=== PATIENT | male | born 1945 | race Caucasian/White ===

== ENCOUNTER → 2017-12-10 13:20 | Outpatient (CLI) | payer MEDICARE, OTHER, SELFPAY ==
[2017-12-10 13:58] LABS: Basophils % 0.6 % (0.1-2.0); Eosinophils # 0.6 K/mm3 (0.0-0.4); Eosinophils % 9.4 % (0.1-12.0); Hematocrit 33.5 % (42.0-52.0); Hemoglobin 10.6 g/dL (14.1-18.0); Lymphocytes # 2.4 K/mm3 (0.7-4.5); Lymphocytes % 37.8 K/mm3 (10-50); Mean Corpuscular HGB Conc 31.6 g/dL (31.8-35.4); Mean Corpuscular Volume 91.6 fl (80-94); Mean Platelet Volume 8.4 fl (7.4-10.4); Monocytes # 0.3 K/mm3 (0.1-1.0); Neutrophils % 48.1 % (37.0-80.0); Platelet Count 206 K/mm3 (142-424); Red Blood Count 3.66 M/mm3 (4.60-6.20); Red Cell Distribution Width 15.7 % (11.5-17.5); White Blood Count 6.3 K/mm3 (4.8-10.8)
[2017-12-10 14:01] LABS: Hemoglobin A1C 9.4 % (0.0-7.0)
[2017-12-10 19:37] LABS: Alanine Aminotransferase 11 U/L (12-78); Albumin Level 3.5 gm/dL (3.4-5.0); Albumin/Globulin Ratio 0.8 (1.1-1.8); Alkaline Phosphatase 84 U/L (46-116); Anion Gap 15.3 mEq/L (5-15); Aspartate Amino Transferase 17 U/L (15-37); Bilirubin,Total 0.4 mg/dL (0.2-1.0); Blood Urea Nitrogen 25 mg/dL (7-18); Calcium 8.8 mg/dL (8.5-10.1); Carbon Dioxide 24 mmol/L (21.0-32.0); Chloride 99 mmol/L (98-107); Chol/HDL Ratio 2.6 (1-3.5); Cholesterol 107 mg/dL (140-200); Creatinine,Serum 1.47 mg/dL (0.70-1.30); Estimated Glomerular Filt Rate 47 ml/min (>60); GFR (African American) 57 ML/MIN (>60); Globulin 4.4 gm/dl (1.3-3.2); Glucose 223 mg/dL (74-106); HDL Cholesterol 41 mg/dL (27-67); LDL Cholesterol 42 mg/dL (0-130); Potassium 4.3 mmoL/L (3.5-5.1); Sodium 134 mmol/L (136-145); T4 (Thyroxine) 6.4 ug/dl (4.7-13.3); Total Protein,Serum 7.9 gm/dL (6.4-8.2); Triglycerides 122 mg/dL (30-200); VLDL Cholesterol 24 mg/dL (0-40)
== END ==
PROVIDERS: PCP Nurse Practitioner Family; Visit Provider Nurse Practitioner Family
DX: E11.65 Type 2 diabetes mellitus with hyperglycemia (principal); E11.8 Type 2 diabetes mellitus with unspecified complications; G62.9 Polyneuropathy, unspecified
CPT/HCPCS: 80053; 80061; 82652; 83036; 84436; 84443; 85025

== ENCOUNTER → 2017-12-31 13:40 | Outpatient (CLI) | payer MEDICARE, OTHER, SELFPAY ==
[2017-12-31 14:47] LABS: Amphetamine/Metha Screen,Urine Negative ng/mL (<1000); Barbiturates Screen,Urine Negative ng/mL (<200); Benzodiazepines Screen,Urine Negative ng/mL (<200); Cannabinoid Screen,Urine Negative ng/mL (<50); Cocaine Screen,Urine Negative ng/mL (<300); Methadone Screen,Urine Negative ng/mL (<300); Opiate Screen,Urine Positive ng/mL (<300); Phencyclidine Screen,Urine Negative ng/mL (<25)
[2018-01-05 08:15] LABS: Codeine Positive (.); Hydrocodone Negative (Cutoff=100); Hydromorphone Negative (Cutoff=100); Morphine Negative (Cutoff=100)
[2018-01-07 09:32] LABS: Codeine Confirm 317 ng/mL (Cutoff=100); Opiates Positive (.)
== END ==
PROVIDERS: Visit Provider Nurse Practitioner Family
DX: Z79.899 Other long term (current) drug therapy (principal)
CPT/HCPCS: 80305; 80361; G0480

== ENCOUNTER → 2018-01-08 09:01 | Outpatient (CLI) | payer MEDICARE, OTHER, SELFPAY | PROVIDERS: PCP Nurse Practitioner Family; Visit Provider Nurse Practitioner Family | DX: E11.65 Type 2 diabetes mellitus with hyperglycemia (principal) | CPT/HCPCS: 97802 ==

== ENCOUNTER → 2018-01-25 14:09 | Outpatient (CLI) | payer MEDICARE, OTHER, SELFPAY ==
[2018-01-25 17:13] LABS: Amphetamine/Metha Screen,Urine Negative ng/mL (<1000); Barbiturates Screen,Urine Negative ng/mL (<200); Benzodiazepines Screen,Urine Negative ng/mL (<200); Cannabinoid Screen,Urine Negative ng/mL (<50); Cocaine Screen,Urine Negative ng/mL (<300); Methadone Screen,Urine Negative ng/mL (<300); Opiate Screen,Urine Positive ng/mL (<300); Phencyclidine Screen,Urine Negative ng/mL (<25)
== END ==
PROVIDERS: Visit Provider Nurse Practitioner Family
DX: Z79.899 Other long term (current) drug therapy (principal)
CPT/HCPCS: 80305

== ENCOUNTER → 2018-02-22 14:18 | Outpatient (CLI) | payer MEDICARE, OTHER, SELFPAY ==
[2018-02-22 14:50] LABS: Amphetamine/Metha Screen,Urine Negative ng/mL (<1000); Barbiturates Screen,Urine Negative ng/mL (<200); Benzodiazepines Screen,Urine Negative ng/mL (<200); Cannabinoid Screen,Urine Negative ng/mL (<50); Cocaine Screen,Urine Negative ng/mL (<300); Methadone Screen,Urine Negative ng/mL (<300); Opiate Screen,Urine Negative ng/mL (<300); Phencyclidine Screen,Urine Negative ng/mL (<25)
== END ==
PROVIDERS: Visit Provider Nurse Practitioner Family
DX: Z79.899 Other long term (current) drug therapy (principal)
CPT/HCPCS: 80305

== ENCOUNTER → 2018-04-19 15:02 | Outpatient (CLI) | payer MEDICARE, OTHER, SELFPAY ==
--- NOTE | 2018-04-19 15:04 | US_ITS ---
US Arterial Ankle Brachial Ind History: ITS.REASON: skin changes, diabetes, hypertension, neuropathy ORDERING PHYSICIAN: Oxana Camarena DPM PATIENT AGE: 72 years TECHNIQUE: Segmental pressures obtained of both right and left leg. These are compared to brachial blood pressure to yield index at each level sampled including summary DREW. The data sheets from the procedure are available in PACS FINDINGS Rest study only performed today No prior studies available for comparison. Blood pressures reported are in millimeters mercury. RIGHT LEG DREW = 1.13. RIGHT LEG TBI=0.91 Brachial BP: 141 Thigh BP: 163 Calf BP: 177 Ankle PT: 162 Ankle DP : 124 Digit =131 LEFT LEG DREW = 0.89 LEFT LEG TBI= 0.60 Brachial BPD: 144 Thigh BP: 174 Calf BP: 160 Ankle PT:128 Ankle DP: 103 Digit = 87 Pulses and waveforms: Normal IMPRESSION: The ABIs/TBI as reported above are within normal limits. Waveforms and pulses are also unremarkable.
== END ==
PROVIDERS: PCP Nurse Practitioner Family; Visit Provider Podiatrist
DX: R09.89 Other specified symptoms and signs involving the circulatory and respiratory systems (principal)
CPT/HCPCS: 93922

== ENCOUNTER → 2018-04-23 13:28 | Outpatient (CLI) | payer MEDICARE, OTHER, SELFPAY ==
[2018-04-23 14:07] LABS: Basophils # 0.1 K/mm3 (0-0.2); Basophils % 0.9 % (0.1-2.0); Eosinophils # 0.4 K/mm3 (0.0-0.4); Eosinophils % 6.3 % (0.1-12.0); Hematocrit 36.8 % (42.0-52.0); Hemoglobin 11.7 g/dL (14.1-18.0); Lymphocytes # 2.2 K/mm3 (0.7-4.5); Lymphocytes % 34.7 % (10-50); Mean Corpuscular HGB Conc 31.7 g/dL (31.8-35.4); Mean Corpuscular Hemoglobin 29.6 pg (27.0-31.2); Mean Corpuscular Volume 93.4 fl (80-94); Mean Platelet Volume 7.9 fl (7.4-10.4); Monocytes # 0.4 K/mm3 (0.1-1.0); Monocytes % 5.6 % (1.7-9.3); Neutrophils # 3.4 K/mm3 (1.8-7.8); Neutrophils % 52.4 % (37.0-80.0); Platelet Count 205 K/mm3 (142-424); Red Blood Count 3.94 M/mm3 (4.60-6.20); Red Cell Distribution Width 16.2 % (11.5-17.5); White Blood Count 6.4 K/mm3 (4.8-10.8)
[2018-04-23 14:12] LABS: Alanine Aminotransferase 14 U/L (12-78); Albumin Level 3.8 gm/dL (3.4-5.0); Albumin/Globulin Ratio 0.9 (1.1-1.8); Alkaline Phosphatase 92 U/L (46-116); Aspartate Amino Transferase 16 U/L (15-37); Bilirubin,Total 0.5 mg/dL (0.2-1.0); Blood Urea Nitrogen 16 mg/dL (7-18); Calcium 8.9 mg/dL (8.5-10.1); Carbon Dioxide 24 mmol/L (21.0-32.0); Chloride 105 mmol/L (98-107); Chol/HDL Ratio 2.6 (1-3.5); Cholesterol 148 mg/dL (140-200); Estimated Glomerular Filt Rate 50 ml/min (>60); GFR (African American) 60 ML/MIN (>60); Globulin 4.2 gm/dl (1.3-3.2); Glucose 204 mg/dL (74-106); HDL Cholesterol 56 mg/dL (27-67); LDL Cholesterol 69 mg/dL (0-130); Sodium 140 mmol/L (136-145); T4 (Thyroxine) 6.3 ug/dl (4.7-13.3); Thyroid Stimulating Hormone 7.18 uIU/ml (0.358-3.740); Triglycerides 116 mg/dL (30-200); VLDL Cholesterol 23 mg/dL (0-40)
[2018-04-23 15:15] LABS: Hemoglobin A1C 8.3 % (0.0-7.0)
[2018-04-24 07:55] LABS: Vitamin D 25 Hydroxy 40.3 ng/mL (30.0-100.0)
[2018-04-24 11:19] LABS: Creatinine, Urine 84.4 mg/dL (Not Estab.); Microalbumin, Urine 73.7 ug/mL (Not Estab.)
[2018-04-26 11:43] LABS: Ferritin 38 ng/mL (8-388)
[2018-04-27 08:29] LABS: Iron 88 ug/dL (38-169); UIBC 257 ug/dL (111-343)
[2018-04-29 08:17] LABS: Iron Saturation 26 % (15-55)
== END ==
PROVIDERS: Visit Provider Physician Assistant
DX: F32.9 Major depressive disorder, single episode, unspecified; E11.8 Type 2 diabetes mellitus with unspecified complications; Z79.4 Long term (current) use of insulin; D64.9 Anemia, unspecified
CPT/HCPCS: 80053; 80061; 82043; 82570; 82652; 82728; 83036; 83540; 83550; 84436; 84443; 85025

== ENCOUNTER → 2019-01-24 09:21 | Outpatient (CLI) | payer MEDICARE, OTHER, SELFPAY ==
--- NOTE | 2019-01-24 09:21 | US_ITS ---
PROCEDURE: US BREAST LT COMPLETE CLINICAL INDICATION: pain Pain behind the left nipple COMPARISON: No exams were available for comparison FINDINGS: No cystic or solid lesions are evident. Unremarkable echogenicity of the pass tissue IMPRESSION: Negative left breast ultrasound Dictated by: Vick Estes MD 01/29/2019 10:37 Electronically signed by Vick Estes MD in [place] 01/29/2019 10:37
== END ==
PROVIDERS: PCP Nurse Practitioner Family; Visit Provider Nurse Practitioner Family
DX: N64.4 Mastodynia (principal)
CPT/HCPCS: 76641

== ENCOUNTER → 2019-10-16 14:49 | Outpatient (CLI) | payer MEDICARE, OTHER, SELFPAY ==
[2019-10-16 18:01] LABS: Basophils % 0.8 % (0.1-2.0); Eosinophils # 0.4 K/mm3 (0.0-0.4); Eosinophils % 6.2 % (0.1-12.0); Hematocrit 36.8 % (42.0-52.0); Hemoglobin 12.3 g/dL (14.1-18.0); Lymphocytes # 1.7 K/mm3 (0.7-4.5); Lymphocytes % 31.2 % (10-50); Mean Corpuscular HGB Conc 33.3 g/dL (31.8-35.4); Mean Corpuscular Hemoglobin 32.8 pg (27.0-31.2); Mean Corpuscular Volume 98.3 fl (80-94); Mean Platelet Volume 9.1 fl (7.4-10.4); Monocytes # 0.4 K/mm3 (0.1-1.0); Neutrophils # 3.1 K/mm3 (1.8-7.8); Neutrophils % 54.8 % (37.0-80.0); Platelet Count 172 K/mm3 (142-424); Red Blood Count 3.74 M/mm3 (4.60-6.20); White Blood Count 5.6 K/mm3 (4.8-10.8)
[2019-10-16 18:09] LABS: Alanine Aminotransferase 10 U/L (12-78); Albumin Level 4.3 g/dl (3.5-5.0); Albumin/Globulin Ratio 1.3 (1.1-1.8); Alkaline Phosphatase 88 U/L (38-126); Anion Gap 10.1 mEq/L (5-15); Aspartate Amino Transferase 31 U/L (17-59); Bilirubin,Total 0.5 mg/dl (0.2-1.3); Blood Urea Nitrogen 13 mg/dl (9-20); Calcium 9.7 mg/dl (8.4-10.2); Carbon Dioxide 31 mmol/L (22.0-30.0); Chloride 104 mmol/L (98-107); Chol/HDL Ratio 2.5 (1-3.5); Cholesterol 146 mg/dl (140-200); Estimated Glomerular Filt Rate 73 ml/min (>60); GFR (African American) 89 ML/MIN (>60); Globulin 3.3 g/dL (1.3-3.2); Glucose 169 mg/dl (74-100); HDL Cholesterol 59 mg/dl (40-60); Potassium 4.1 mmoL/L (3.5-5.1); Sodium 141 mmol/L (136-145); Total Protein,Serum 7.6 g/dl (6.3-8.2); Triglycerides 128 mg/dl (30-150); VLDL Cholesterol 26 mg/dL (0-40)
[2019-10-16 18:16] LABS: Hemoglobin A1C 7.1 % (4.0-6.0)
[2019-10-16 18:21] LABS: Direct LDL Cholesterol 65.14 mg/dL (100-129)
[2019-10-16 18:27] LABS: T4 (Thyroxine) 7.4 ug/dl (5.53-11.0)
[2019-10-16 18:40] LABS: Prostate Specific Ag Screen 0.1 ng/ml (0.0-4.0)
[2019-10-16 20:27] LABS: Microalbumin/Creatinine Ratio 63.6
[2019-10-16 21:02] LABS: Creatinine,Urine Random 75 mg/dL (Not Estab.)
== END ==
PROVIDERS: Visit Provider Nurse Practitioner Family
DX: E03.9 Hypothyroidism, unspecified (principal); E11.65 Type 2 diabetes mellitus with hyperglycemia; R53.83 Other fatigue; L60.3 Nail dystrophy; B35.1 Tinea unguium; E11.8 Type 2 diabetes mellitus with unspecified complications; Z12.5 Encounter for screening for malignant neoplasm of prostate
CPT/HCPCS: 80053; 80061; 82043; 82570; 83036; 84436; 84443; 85025; G0103

== ENCOUNTER → 2019-10-20 11:01 | Outpatient (CLI) | payer MEDICARE, OTHER, SELFPAY ==
--- NOTE | 2019-10-20 11:31 | XR_ITS ---
PROCEDURE: XR FOOT WT BEARING LT 3V CLINICAL INDICATION: DM ulcer of left heel Pain redness and swelling COMPARISON: CR [id number] XR foot RT 2V from 11/07/2017 FINDINGS: Bandage artifact overlies the calcaneus posteriorly. There is a small enthesophyte and a small calcaneal spur. Along the plantar surface of the calcaneus just proximal to the spur there is some faint haziness of the cortex. One cannot exclude the possibility of early osteomyelitis. MRI may provide further evaluation. There are mild degenerative changes at the 1st metatarsophalangeal joint. IMPRESSION: There is faint haziness of the cortex proximal to a calcaneal spur. This is nonspecific but could be seen with early osteomyelitis. MRI may provide further evaluation. Dictated by: Vick Estes MD 10/20/2019 12:42 Vick Estes MD in [place] 10/20/2019 12:42
[2019-10-20 11:57] LABS: Basophils # 0.1 K/mm3 (0-0.2); Basophils % 0.9 % (0.1-2.0); Eosinophils # 0.4 K/mm3 (0.0-0.4); Eosinophils % 5.3 % (0.1-12.0); Hemoglobin 11.6 g/dL (14.1-18.0); Lymphocytes # 1.9 K/mm3 (0.7-4.5); Lymphocytes % 28.3 % (10-50); Mean Corpuscular HGB Conc 32.4 g/dL (31.8-35.4); Mean Corpuscular Hemoglobin 32.1 pg (27.0-31.2); Mean Corpuscular Volume 99.3 fl (80-94); Mean Platelet Volume 7.9 fl (7.4-10.4); Monocytes # 0.4 K/mm3 (0.1-1.0); Monocytes % 5.7 % (1.7-9.3); Neutrophils % 59.8 % (37.0-80.0); Platelet Count 178 K/mm3 (142-424); Red Blood Count 3.62 M/mm3 (4.60-6.20); Red Cell Distribution Width 13.8 % (11.5-17.5); White Blood Count 6.7 K/mm3 (4.8-10.8)
[2019-10-20 12:22] LABS: Erythrocyte Sedimentation Rate 23 mm/hr (0-20)
[2019-10-20 12:57] LABS: Chloride 101 mmol/L (98-107); Potassium 4.6 mmoL/L (3.5-5.1); Sodium 142 mmol/L (136-145)
[2019-10-20 13:00] LABS: Alanine Aminotransferase 5 U/L (12-78); Albumin Level 4.2 g/dl (3.5-5.0); Albumin/Globulin Ratio 1.4 (1.1-1.8); Alkaline Phosphatase 75 U/L (38-126); Anion Gap 14.6 mEq/L (5-15); Aspartate Amino Transferase 26 U/L (17-59); Bilirubin,Total 0.5 mg/dl (0.2-1.3); Blood Urea Nitrogen 17 mg/dl (9-20); Carbon Dioxide 31 mmol/L (22.0-30.0); Estimated Glomerular Filt Rate 66 ml/min (>60); GFR (African American) 79 ML/MIN (>60); Total Protein,Serum 7.2 g/dl (6.3-8.2)
[2019-10-20 13:01] LABS: Calcium 9.4 mg/dl (8.4-10.2); Glucose 237 mg/dl (74-100)
[2019-10-20 13:06] LABS: C-Reactive Protein 0.8 mg/L (0-4)
== END ==
PROVIDERS: PCP Emergency Medicine; Visit Provider Nurse Practitioner
DX: E11.621 Type 2 diabetes mellitus with foot ulcer (principal); L97.429 Non-pressure chronic ulcer of left heel and midfoot with unspecified severity
CPT/HCPCS: 36415; 73630; 80053; 85025; 85651; 86140; 87070; 87077; 87186; 87205

== ENCOUNTER → 2019-11-06 09:32 | Outpatient (CLI) | payer MEDICARE, OTHER, SELFPAY ==
--- NOTE | 2019-11-06 09:32 | MR_ITS ---
PROCEDURE: MR FOOT LT WO/W CON CLINICAL INDICATION: Eval. extent of osteomyelitis. Open sore along posterior aspect of the heel and medial aspect of the foot, evaluate for osteomyelitis. Radiograph. Possible osteomyelitis at the calcaneus COMPARISON: CR XR FOOT WT BEARING LT 3V from 10/20/2019 TECHNIQUE: Routine multiplanar multi echo sequences are performed without gadolinium enhancement. FINDINGS: There is diffuse edema of the deep tissues along the plantar surface of the foot deep to the plantar fascia involving the transit muscles of the foot with subcutaneous edema along the dorsal and medial aspect of the foot and at the ankle posteriorly. No abnormal bone marrow signal intensity is evident that would indicate osteomyelitis. Specifically, no abnormal bone marrow signal of the calcaneus. The plantar fascia appears intact. No ligamentous or tendinous abnormalities are evident. No focal abscess apparent IMPRESSION: 1. Diffuse edema of the deep soft tissues of the foot/intrinsic muscles of the foot. Deep cellulitis/myositis is considered 2. No evidence of osteomyelitis. Dictated by: Vick Estes MD 11/10/2019 09:41 Vick Estes MD in [place] 11/10/2019 09:41
--- NOTE | 2019-11-06 11:11 | US_ITS ---
APPROVED REPORT Exam Type: Lower Extremity Segmental Pressures Proprietary Trader: Odalis Tang RDCS Indications Non-healing Ulcer: Left Rest Pain: History of Smoking Risk Factors Hypertension Diabetes Pressures/Indices Right Indices Left Indices Brachial 135.00 mmHg Brachial 129.00 mmHg Low Thigh 172.00 mmHg 1.27 Low Thigh 159.00 mmHg 1.18 Calf 161.00 mmHg 1.19 Calf 157.00 mmHg 1.16 Ankle(PT) 172.00 mmHg 1.27 Ankle(PT) 143.00 mmHg 1.06 Ankle(DP) 157.00 mmHg 1.16 Ankle(DP) 116.00 mmHg 0.86 Digit 171.00 mmHg 1.27 Digit 80.00 mmHg 0.59 Findings NORMAL WAVEFORMS AND PULSES R DREW 1.3 L DREW 1.1 R TBI 1.3 L TBI .6 Conclusion NORMAL WAVEFORMS AND PULSES R DREW 1.3 L DREW 1.1 R TBI 1.3 L TBI .6 Electronically signed by : Vick Estes MD 11/10/2019 17:24:48
== END ==
PROVIDERS: PCP Emergency Medicine; Visit Provider Podiatrist
DX: E08.621 Diabetes mellitus due to underlying condition with foot ulcer (principal); L97.401 Non-pressure chronic ulcer of unspecified heel and midfoot limited to breakdown of skin; M86.171 Other acute osteomyelitis, right ankle and foot; R09.89 Other specified symptoms and signs involving the circulatory and respiratory systems
CPT/HCPCS: 73720; 93923; A9576

== ENCOUNTER → 2019-11-24 11:25 | Outpatient (CLI) | payer MEDICARE, OTHER, SELFPAY ==
[2019-11-24 12:29] LABS: Hemoglobin A1C 7.2 % (4.0-6.0)
[2019-11-24 12:53] LABS: C-Reactive Protein 1.1 mg/L (0-4)
[2019-11-24 13:03] LABS: Basophils # 0.1 K/mm3 (0-0.2); Basophils % 0.6 % (0.1-2.0); Eosinophils # 1.8 K/mm3 (0.0-0.4); Eosinophils % 17.1 % (0.1-12.0); Hematocrit 36.9 % (42.0-52.0); Hemoglobin 12.1 g/dL (14.1-18.0); Lymphocytes # 2.2 K/mm3 (0.7-4.5); Mean Corpuscular HGB Conc 32.8 g/dL (31.8-35.4); Mean Corpuscular Hemoglobin 31.4 pg (27.0-31.2); Mean Corpuscular Volume 95.6 fl (80-94); Mean Platelet Volume 8.2 fl (7.4-10.4); Monocytes # 0.5 K/mm3 (0.1-1.0); Monocytes % 4.9 % (1.7-9.3); Neutrophils # 5.8 K/mm3 (1.8-7.8); Neutrophils % 56.3 % (37.0-80.0); Platelet Count 164 K/mm3 (142-424); Red Blood Count 3.86 M/mm3 (4.60-6.20); Red Cell Distribution Width 14.1 % (11.5-17.5); White Blood Count 10.3 K/mm3 (4.8-10.8)
[2019-11-24 13:46] LABS: Erythrocyte Sedimentation Rate 29 mm/hr (0-20)
== END ==
PROVIDERS: Visit Provider Podiatrist
DX: E08.621 Diabetes mellitus due to underlying condition with foot ulcer (principal); L97.401 Non-pressure chronic ulcer of unspecified heel and midfoot limited to breakdown of skin; Z79.4 Long term (current) use of insulin
CPT/HCPCS: 36415; 83036; 85025; 85651; 86140

== ENCOUNTER → 2020-04-09 14:56 | Outpatient (CLI) | payer MEDICARE, OTHER, SELFPAY ==
[2020-04-09 16:43] LABS: Basophils # 0.1 K/mm3 (0-0.2); Eosinophils # 0.5 K/mm3 (0.0-0.4); Eosinophils % 6.4 % (0.1-12.0); Hematocrit 36.2 % (42.0-52.0); Hemoglobin 12.1 g/dL (14.1-18.0); Lymphocytes # 2.3 K/mm3 (0.7-4.5); Mean Corpuscular HGB Conc 33.3 g/dL (31.8-35.4); Mean Corpuscular Hemoglobin 30.8 pg (27.0-31.2); Mean Corpuscular Volume 92.3 fl (80-94); Mean Platelet Volume 8.8 fl (7.4-10.4); Monocytes # 0.5 K/mm3 (0.1-1.0); Neutrophils # 4.6 K/mm3 (1.8-7.8); Neutrophils % 57.6 % (37.0-80.0); Platelet Count 196 K/mm3 (142-424); Red Blood Count 3.92 M/mm3 (4.60-6.20); Red Cell Distribution Width 14.8 % (11.5-17.5)
[2020-04-09 16:59] LABS: Alanine Aminotransferase 8 U/L (12-78); Albumin Level 4.3 g/dl (3.5-5.0); Albumin/Globulin Ratio 1.3 (1.1-1.8); Alkaline Phosphatase 77 U/L (38-126); Anion Gap 14.5 mEq/L (5-15); Aspartate Amino Transferase 28 U/L (17-59); Bilirubin,Total 0.5 mg/dl (0.2-1.3); Blood Urea Nitrogen 21 mg/dl (9-20); Calcium 9.5 mg/dl (8.4-10.2); Carbon Dioxide 26 mmol/L (22.0-30.0); Chloride 104 mmol/L (98-107); Chol/HDL Ratio 3.7 (1-3.5); Cholesterol 133 mg/dl (140-200); Estimated Glomerular Filt Rate 54 ml/min (>60); GFR (African American) 65 ML/MIN (>60); Globulin 3.3 g/dL (1.3-3.2); Glucose 223 mg/dl (74-100); HDL Cholesterol 36 mg/dl (40-60); Potassium 4.5 mmoL/L (3.5-5.1); Sodium 140 mmol/L (136-145); Total Protein,Serum 7.6 g/dl (6.3-8.2); Triglycerides 139 mg/dl (30-150); VLDL Cholesterol 28 mg/dL (0-40)
[2020-04-09 17:10] LABS: Direct LDL Cholesterol 68.99 mg/dL (100-129)
[2020-04-09 17:29] LABS: Thyroid Stimulating Hormone 3.09 uIU/mL (0.465-4.68)
[2020-04-09 17:40] LABS: Hemoglobin A1C 8.8 % (4.0-6.0)
[2020-04-09 17:50] LABS: Microalbumin/Creatinine Ratio 30.4
[2020-04-09 17:52] LABS: Creatinine,Urine Random 112 mg/dL (Not Estab.)
== END ==
PROVIDERS: Visit Provider Family Medicine
DX: E11.40 Type 2 diabetes mellitus with diabetic neuropathy, unspecified (principal); E11.65 Type 2 diabetes mellitus with hyperglycemia; Z79.4 Long term (current) use of insulin; R35.1 Nocturia
CPT/HCPCS: 80053; 80061; 82043; 82570; 83036; 84436; 84443; 85025

== ENCOUNTER → 2020-08-30 19:50 | Outpatient (CLI) | payer MEDICARE, SELFPAY ==
[2020-08-30 20:28] LABS: Hemoglobin A1C 6.9 % (4.0-6.0)
[2020-08-30 20:48] LABS: Alanine Aminotransferase 5 U/L (12-78); Albumin Level 4.4 g/dl (3.5-5.0); Albumin/Globulin Ratio 1.3 (1.1-1.8); Alkaline Phosphatase 65 U/L (38-126); Anion Gap 17.6 mEq/L (5-15); Aspartate Amino Transferase 22 U/L (17-59); Bilirubin,Total 0.5 mg/dl (0.2-1.3); Blood Urea Nitrogen 19 mg/dl (9-20); Calcium 9.1 mg/dl (8.4-10.2); Carbon Dioxide 25 mmol/L (22.0-30.0); Chloride 104 mmol/L (98-107); Chol/HDL Ratio 3.1 (1-3.5); Cholesterol 118 mg/dl (140-200); Estimated Glomerular Filt Rate 54 ml/min (>60); GFR (African American) 65 ML/MIN (>60); Globulin 3.3 g/dL (1.3-3.2); Glucose 56 mg/dl (74-100); HDL Cholesterol 38 mg/dl (40-60); Potassium 4.6 mmoL/L (3.5-5.1); Sodium 142 mmol/L (136-145); Total Protein,Serum 7.7 g/dl (6.3-8.2); Triglycerides 93 mg/dl (30-150); VLDL Cholesterol 19 mg/dL (0-40)
[2020-08-30 20:59] LABS: Direct LDL Cholesterol 60.06 mg/dL (100-129)
== END ==
PROVIDERS: Visit Provider Family Medicine
DX: E11.40 Type 2 diabetes mellitus with diabetic neuropathy, unspecified (principal); Z79.4 Long term (current) use of insulin
CPT/HCPCS: 80053; 80061; 83036

== ENCOUNTER 2020-11-19 13:48 | Emergency (ER) | payer MEDICARE, OTHER, SELFPAY ==
[2020-11-19] VITALS (20 sets, daily range): BP systolic 89–127; BP diastolic 43–68; PULSE 59–78; RESP 12–23; TEMP 37.2–38.4; O2SAT 92–99; BMI 22.9; BMI 23.6
--- NOTE | 2020-11-19 13:51 | ECG_ITS ---
APPROVED REPORT Exam: Resting ECG HR:74 bpm ECG Measurements Heart Rate 74 AXES NJ 190 P 44 QRSd 94 QRS -15 QT 354 T 25 QTc 392 Conclusion Normal sinus rhythm Normal ECG Electronically signed by : Suhail Salcedo MD 11/19/2020 16:34:49
--- NOTE | 2020-11-19 14:03 | XR_ITS ---
PROCEDURE: XR CHEST PORTABLE CLINICAL HISTORY: FEVER Degenerative changes of the right shoulder. Concave defect is present along the distal clavicle on the right and could be postsurgical in nature COMPARISON: CR [id number] XR chest portable from 11/07/[address] ABDOMEN PELVIS WO CON from 11/19/2020 FINDINGS: The cardiomediastinal silhouette and pulmonary vascularity are within normal limits. The faint infiltrates noted on the CT scan of the same day are below limits of resolution on the radiograph. Calcified granuloma is present in right lower lobe and a calcified granulomas present along the right minor fissure. Bowel interposition is noted on the right No acute bony abnormalities. IMPRESSION: No acute finding. Faint infiltrates noted on the lung base images of the abdomen CT are below limits of resolution on the radiograph. Dictated by: Vick Estes MD 11/19/2020 16:19 Vick Estes MD in [place] 11/19/2020 16:19
[2020-11-19 14:09] LABS: Basophils % 0.7 % (0.1-2.0); Eosinophils % 0.2 % (0.1-12.0); Hematocrit 32.5 % (42.0-52.0); Hemoglobin 10.5 g/dL (14.1-18.0); Lymphocytes # 1.1 K/mm3 (0.7-4.5); Lymphocytes % 17.5 % (10-50); Mean Corpuscular HGB Conc 32.2 g/dL (31.8-35.4); Mean Corpuscular Hemoglobin 31.7 pg (27.0-31.2); Mean Corpuscular Volume 98.5 fl (80-94); Monocytes # 0.5 K/mm3 (0.1-1.0); Monocytes % 7.5 % (1.7-9.3); Neutrophils # 4.4 K/mm3 (1.8-7.8); Platelet Count 131 K/mm3 (142-424); Red Cell Distribution Width 14.9 % (11.5-17.5)
[2020-11-19 14:15] LABS: Chloride 98 mmol/L (98-107); Sodium 131 mmol/L (136-145)
[2020-11-19 14:17] LABS: Blood Urea Nitrogen 61 mg/dl (9-20); Creatinine Clearance Estimated 14 mL/min (50-200); Estimated Glomerular Filt Rate 12 ml/min (>60); GFR (African American) 15 ML/MIN (>60)
[2020-11-19 14:18] LABS: Alanine Aminotransferase 8 U/L (12-78); Albumin Level 4.2 g/dl (3.5-5.0); Albumin/Globulin Ratio 1.1 (1.1-1.8); Alkaline Phosphatase 78 U/L (38-126); Anion Gap 21.3 mEq/L (5-15); Aspartate Amino Transferase 47 U/L (17-59); Bilirubin,Total 0.4 mg/dl (0.2-1.3); Calcium 8.3 mg/dl (8.4-10.2); Carbon Dioxide 18 mmol/L (22.0-30.0); Globulin 3.7 g/dL (1.3-3.2); Glucose 174 mg/dl (74-100); Potassium 6.3 mmoL/L (3.5-5.1); Total Protein,Serum 7.9 g/dl (6.3-8.2)
--- NOTE | 2020-11-19 14:18 | PC.NURSE ---
Becky from lab called a criticals of potassium of 6.3 and creatine of 4.7, which was read back and confirmed.
--- NOTE | 2020-11-19 14:31 | CT_ITS ---
PROCEDURE: CT ABDOMEN PELVIS WO CON CLINICAL INDICATION: renal failure COMPARISON: CR XR CHEST PORTABLE from 11/19/2020 TECHNIQUE: Axial images obtained with sagittal and coronal reformats. All CT scans at the facility use one or more dose reduction, viz: automated exposure control, ma/kV adjustment per patient size (including targeted exams where dose is matched to indication, i.e. head), or iterative reconstruction technique. FINDINGS: LOWER THORAX: A small area of infiltrate is present in the left lung base posteriorly and laterally and also in the right lung base medially. There is bilateral gynecomastia left greater than right. ABDOMEN & PELVIS: There is mild gallbladder wall thickening with suggestion of a small stone in the cystic duct area and small gallstones. No focal liver lesion is apparent. The spleen, adrenal glands, and pancreas have an unremarkable appearance. No renal or ureteral calculi. Small hypodensity is present along the posterior aspect of the left kidney at 12 mm and may be due to small cyst. There are fluid-filled loops of small and large bowel with scattered air-fluid levels. This could be related to enterocolitis/diarrhea disease there is mild prominence of the appendix measuring up to approximately 9 mm in diameter. There is however no stranding of the Penny appendiceal fat. There is hyperdensity in the tip of the appendix which could be related to an appendicoliths or ingested material. There is also some hyperdensity within the colon consistent with ingested products. There is a small umbilical hernia containing fat. No free air apparent. No evidence of diverticulitis. Urinary bladder is somewhat distended. No pelvic mass apparent. Sclerotic focus is present in the right super acetabular region and may be due to a bone island. Small sclerotic focus with surrounding lucency noted in the left ilium etiology indeterminate. Follow-up may confirm stability. IMPRESSION: 1. Small bibasilar areas of infiltrate 2. Thickened gallbladder wall with cholelithiasis 3. Fluid-filled loops of small and large bowel which are somewhat prominent with air-fluid levels which may be related to ileus/enteritis or diarrhea disease. 4. Mild dilatation of the appendix without stranding of the periappendiceal fat. Correlation with clinical parameters needed. Dictated by: Vick Estes MD 11/19/2020 15:05 Vick Estes MD in [place] 11/19/2020 15:05
[2020-11-19 14:43] LABS: Influenza A, PCR Not Detected (NotDetected); Influenza B, PCR Not Detected (NotDetected)
[2020-11-19 15:06] LABS: Coronavirus 19, PCR Detected (NotDetected)
--- NOTE | 2020-11-19 15:12 | HMH.EDGENADL ---
ED Disposition Clinical Impression: COVID, Acute hyperkalemia, Enteritis Acute renal failure Qualifiers: Acute renal failure type: unspecified Qualified Code(s): N17.9 - Acute kidney failure, unspecified Disposition: Xfer Critical Access Hosp Condition on Discharge: Fair Instructions: DI for COVID-19 (Suspected or Confirmed ) Referrals: Venkat Holder MD [Primary Care Provider] - - Critical Care Critical Care Time: No Attestation: On 11/19/20, the high probability of a clinically significant, sudden or life threatening deterioration of the following system(s) required my full and direct attention, intervention and personal management. The time I documented below is in addition to time spent performing reported procedures but includes the following listed in this critical care notation. Medical Decision Making - Medical Records Medical records reviewed: Yes: I reviewed the patient's medical records. - Simone Inquiry Pt receiving controlled substance: No Vital Signs: 11/19/20 13:48 11/19/20 14:30 11/19/20 15:30 Temperature 101.2 F H Temperature Source Oral Pulse Rate 72 78 Pulse Rate [Radial] 73 Respiratory Rate 20 18 23 Blood Pressure 103/54 L 94/43 L Blood Pressure [Right Arm] 107/54 L Blood Pressure Mean 65 58 Blood Pressure Mean [Right Arm] 71 Blood Pressure Position Sitting Blood Pressure Position [Right Arm] Sitting 02 Sat by Pulse Oximetry 96 96 97 Oxygen Delivery Method Room Air Room Air 11/19/20 16:00 11/19/20 16:30 11/19/20 16:45 Temperature Temperature Source Pulse Rate 69 68 68 Pulse Rate [Radial] Respiratory Rate 17 16 21 Blood Pressure 89/50 L 91/53 L 93/54 L Blood Pressure [Right Arm] Blood Pressure Mean 60 60 64 Blood Pressure Mean [Right Arm] Blood Pressure Position Sitting Blood Pressure Position [Right Arm] 02 Sat by Pulse Oximetry 94 L 92 L 95 Oxygen Delivery Method Room Air 11/19/20 17:00 11/19/20 17:30 11/19/20 18:00 Temperature 99 F Temperature Source Oral Pulse Rate 70 63 61 Pulse Rate [Radial] Respiratory Rate 16 12 12 Blood Pressure 92/52 L 95/54 L 105/57 L Blood Pressure [Right Arm] Blood Pressure Mean 63 66 70 Blood Pressure Mean [Right Arm] Blood Pressure Position Sitting Blood Pressure Position [Right Arm] 02 Sat by Pulse Oximetry 95 99 98 Oxygen Delivery Method Room Air 11/19/20 18:30 Temperature Temperature Source Pulse Rate 62 Pulse Rate [Radial] Respiratory Rate 17 Blood Pressure 98/58 L Blood Pressure [Right Arm] Blood Pressure Mean 79 Blood Pressure Mean [Right Arm] Blood Pressure Position Blood Pressure Position [Right Arm] 02 Sat by Pulse Oximetry 95 Oxygen Delivery Method - Lab Data Lab Results 11/19/20 14:00: WBC 6.0, RBC 3.30 L, Hgb 10.5 L, Hct 32.5 L, MCV 98.5 H, MCH 31.7 H, MCHC 32.2, RDW 14.9, Plt Count 131 L, MPV 9.0, Neut % (Auto) 74.0, Lymph % (Auto) 17.5, Ray % (Auto) 7.5, Eos % (Auto) 0.2, Baso % (Auto) 0.7, Neut # (Auto) 4.4, Lymph # (Auto) 1.1, Ray # (Auto) 0.5, Eos # (Auto) 0.0, Baso # (Auto) 0.0 11/19/20 14:00: Sodium 131 L, Potassium 6.3 H*, Chloride 98, Carbon Dioxide 18 L, Anion Gap 21.3 H, BUN 61 H, Creatinine 4.70 H, Estimated Creat Clear 14, Estimated GFR 12 L*, Est GFR ( Amer) 15 L*, Glucose 174 H, Calcium 8.3 L, Total Bilirubin 0.4, AST 47, ALT 8 L, Alkaline Phosphatase 78, Total Protein 7.9, Albumin 4.2, Globulin 3.7 H, Albumin/Globulin Ratio 1.1 11/19/20 14:00: Lactate 1.0 11/19/20 14:30: SARS-CoV-2 (PCR) Detected A, Influenza A Untype (PCR) Not detected, Influenza Type B (PCR) Not detected 11/19/20 17:20: Urine Color Yellow, Urine Appearance Clear, Urine pH 5.5, Ur Specific [place] 1.025, Urine Protein Negative, Urine Glucose (UA) Negative, Urine Ketones Negative, Urine Blood Negative, Urine Nitrate Negative, Urine Bilirubin Negative, Urine Urobilinogen 0.2, Ur Leukocyte Esterase Negative, Urine RBC None, Urine WBC Occasional, Ur Squamous Ep
[2020-11-19 17:37] LABS: Microscopic, Urine URINE MICROSCOPIC (MICROSCOPIC)
[2020-11-19 17:39] LABS: Appearance,Urine CLEAR (Clear); Bilirubin,Urine Negative (Negative); Blood, Urine Negative (Negative); Color,Urine YELLOW (Yellow); Glucose,Urine (UA) Negative (Negative); Ketones,Urine Negative (Negative); Leukocyte Esterase,Urine Negative (Negative); Nitrate,Urine Negative (Negative); PH,Urine 5.5 (5.0-8.5); Protein,Urine Negative (Negative); Specific Gravity, Urine 1.025 (1.005-1.030); Urobilinogen,Urine 0.2 EU/dl (0.2)
[2020-11-19 17:54] LABS: Squamous Epithelial Cell,Urine Occasional #/hpf (0-5); WBC,Urine Occasional #/hpf (0-3)
--- NOTE | 2020-11-19 17:55 | PC.NURSE ---
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 burnette who is screwhead stoner and polisher dr. diehl
--- NOTE | 2020-11-19 18:16 | PC.NURSE ---
ARMANDO FLORES speaking with Dr. Chinchilla who is equipment application specialist for Dr. Holder
--- NOTE | 2020-11-19 18:30 | PC.NURSE ---
PT AND DAUGHTER UPDATED ON PLAN OF CARE
--- NOTE | 2020-11-19 18:36 | PC.NURSE ---
Doctor at [place] on the phone with
--- NOTE | 2020-11-19 19:22 | PC.NURSE ---
WAITING LIST AT [facility]
--- NOTE | 2020-11-19 21:24 | PC.NURSE ---
Christina called from [facility] for pt updated and to let us know that they don't have a bed and possibly wont until after shift change in AM
[2020-11-19 21:47] LABS: Chloride 103 mmol/L (98-107); Potassium 5.2 mmoL/L (3.5-5.1); Sodium 134 mmol/L (136-145)
[2020-11-19 21:50] LABS: Anion Gap 15.2 mEq/L (5-15); Blood Urea Nitrogen 61 mg/dl (9-20); Carbon Dioxide 21 mmol/L (22.0-30.0); Creatinine Clearance Estimated 17 mL/min (50-200); Estimated Glomerular Filt Rate 14 ml/min (>60); GFR (African American) 17 ML/MIN (>60)
[2020-11-19 21:51] LABS: Calcium 7.6 mg/dl (8.4-10.2); Glucose 109 mg/dl (74-100)
--- NOTE | 2020-11-19 22:18 | PC.NURSE ---
pt had bm @ this time. pt cleaned up and pt voiced no c/o @ this time
[2020-11-20] VITALS (8 sets, daily range): BP systolic 116–144; BP diastolic 52–81; PULSE 65–72; RESP 12–17; TEMP 36.8; O2SAT 95–98
--- NOTE | 2020-11-20 03:29 | PC.NURSE ---
S/keo Vasquez at [facility] and she will go to [address], room 577. Call Report to [phone]
--- NOTE | 2020-11-20 03:31 | PC.NURSE ---
Called report to [facility]- s/w Amira VERONICA
== END 2020-11-20 04:22 | disposition short-term general hospital (02) ==
PROVIDERS: Emergency Provider Emergency Medicine; PCP Family Medicine
DX: U07.1 COVID-19 (principal); E87.5 Hyperkalemia; K52.9 Noninfective gastroenteritis and colitis, unspecified; N17.9 Acute kidney failure, unspecified; F41.8 Other specified anxiety disorders; E78.5 Hyperlipidemia, unspecified; E03.9 Hypothyroidism, unspecified; K21.9 Gastro-esophageal reflux disease without esophagitis; I10 Essential (primary) hypertension; Z79.899 Other long term (current) drug therapy
CPT/HCPCS: 71045; 74176; 80048; 80053; 81001; 83605; 85025; 87040; 93005; 96365; 96366; 99283; C9803; U0003; U0005

== ENCOUNTER → 2020-12-09 18:08 | Outpatient (CLI) | payer MEDICARE, SELFPAY ==
[2020-12-09 19:26] LABS: Hemoglobin A1C 8.1 % (4.0-6.0)
[2020-12-09 19:51] LABS: Albumin Level 4.1 g/dl (3.5-5.0); Albumin/Globulin Ratio 1.2 (1.1-1.8); Alkaline Phosphatase 79 U/L (38-126); Anion Gap 16.8 mEq/L (5-15); Aspartate Amino Transferase 24 U/L (17-59); Bilirubin,Total 0.3 mg/dl (0.2-1.3); Blood Urea Nitrogen 21 mg/dl (9-20); Calcium 9.3 mg/dl (8.4-10.2); Carbon Dioxide 25 mmol/L (22.0-30.0); Chloride 104 mmol/L (98-107); Estimated Glomerular Filt Rate 59 ml/min (>60); GFR (African American) 72 ML/MIN (>60); Globulin 3.3 g/dL (1.3-3.2); Glucose 123 mg/dl (74-100); Potassium 5.8 mmoL/L (3.5-5.1); Sodium 140 mmol/L (136-145); Total Protein,Serum 7.4 g/dl (6.3-8.2)
[2020-12-09 19:52] LABS: Alanine Aminotransferase < 4 U/L (12-78)
== END ==
PROVIDERS: Visit Provider Family Medicine
DX: Z78.9 Other specified health status (principal); E11.40 Type 2 diabetes mellitus with diabetic neuropathy, unspecified; Z79.4 Long term (current) use of insulin
CPT/HCPCS: 80053; 83036

== ENCOUNTER → 2021-01-20 13:45 | Outpatient (CLI) | payer MEDICARE, SELFPAY ==
[2021-01-20 14:03] LABS: Basophils % 0.4 % (0.1-2.0); Eosinophils # 0.3 K/mm3 (0.0-0.4); Hematocrit 31.2 % (42.0-52.0); Lymphocytes # 1.3 K/mm3 (0.7-4.5); Lymphocytes % 17.3 % (10-50); Mean Corpuscular Hemoglobin 31.7 pg (27.0-31.2); Mean Corpuscular Volume 99.2 fl (80-94); Mean Platelet Volume 9.2 fl (7.4-10.4); Monocytes # 0.5 K/mm3 (0.1-1.0); Monocytes % 6.7 % (1.7-9.3); Neutrophils # 5.4 K/mm3 (1.8-7.8); Neutrophils % 71.7 % (37.0-80.0); Platelet Count 201 K/mm3 (142-424); Red Blood Count 3.14 M/mm3 (4.60-6.20); White Blood Count 7.5 K/mm3 (4.8-10.8)
[2021-01-20 14:07] LABS: Chloride 101 mmol/L (98-107); Sodium 132 mmol/L (136-145)
[2021-01-20 14:08] LABS: Potassium 5.7 mmoL/L (3.5-5.1)
[2021-01-20 14:10] LABS: Blood Urea Nitrogen 42 mg/dl (9-20); Estimated Glomerular Filt Rate 42 ml/min (>60); GFR (African American) 51 ML/MIN (>60)
[2021-01-20 14:11] LABS: Anion Gap 16.7 mEq/L (5-15); Calcium 8.5 mg/dl (8.4-10.2); Carbon Dioxide 20 mmol/L (22.0-30.0)
[2021-01-20 14:23] LABS: Glucose 420 mg/dl (74-100)
[2021-01-20 14:46] LABS: Thyroid Stimulating Hormone 2.57 uIU/mL (0.465-4.68)
== END ==
PROVIDERS: Visit Provider Family Medicine
DX: Z00.00 Encounter for general adult medical examination without abnormal findings (principal); E11.40 Type 2 diabetes mellitus with diabetic neuropathy, unspecified; Z79.4 Long term (current) use of insulin
CPT/HCPCS: 80048; 84443; 85025

== ENCOUNTER 2021-02-05 11:42 | Inpatient (IN) | payer MEDICARE, OTHER, SELFPAY ==
[2021-02-05] VITALS (14 sets, daily range): BP systolic 93–125; BP diastolic 35–74; PULSE 58–94; RESP 9–20; TEMP 36.4–37.2; O2SAT 95–100; BMI 27.1; BMI 25.5
--- NOTE | 2021-02-05 11:41 | ECG_ITS ---
APPROVED REPORT Exam: Resting ECG HR:66 bpm ECG Measurements Heart Rate 66 AXES FL 200 P 66 QRSd 96 QRS -21 QT 388 T 53 QTc 406 Conclusion Normal sinus rhythm Normal ECG Electronically signed by : Suhail Salcedo MD 02/07/2021 21:43:07
--- NOTE | 2021-02-05 11:45 | CT_ITS ---
PROCEDURE INFORMATION: Exam: CT Head Without Contrast Exam date and time: 02/05/2021 11:45 AM Age: 75 years old Clinical indication: Injury or trauma; Fall; Blunt trauma (contusions or hematomas); Consciousness not specified; Injury date: 02/05/21 TECHNIQUE: Imaging protocol: Computed tomography of the head without contrast. Radiation optimization: All CT scans at this facility use at least one of these dose optimization techniques: automated exposure control; mA and/or kV adjustment per patient size (includes targeted exams where dose is matched to clinical indication); or iterative reconstruction. COMPARISON: No relevant prior studies available. FINDINGS: Brain: No acute post-traumatic brain injury. Symmetric prominence of the cortical sulci. Small-vessel ischemic change. Cerebral ventricles: Normal configuration of the ventricles. Paranasal sinuses: No sinus fluid. Mastoid air cells: No mastoid effusion. Vasculature: Vascular and dural calcifications. Bones/joints: No acute calvarial injury. Soft tissues: Small scalp hematoma in the posterior midline. IMPRESSION: 1. Small scalp hematoma in the posterior midline. 2. No acute post-traumatic brain injury.
--- NOTE | 2021-02-05 11:45 | XR_ITS ---
PROCEDURE INFORMATION: Exam: XR Chest Exam date and time: 02/05/2021 11:45 AM Age: 75 years old Clinical indication: Injury or trauma; Fall; Blunt trauma (contusions or hematomas) TECHNIQUE: Imaging protocol: XR of the chest. Views: 1 view. COMPARISON: CR XR CHEST PORTABLE 11/19/2020 2:37 PM FINDINGS: Lungs: Mild interstitial prominence and chronic granulomatous disease. Pleural spaces: No pleural effusion. Heart/Mediastinum: Normal configuration of the heart. Diaphragm: Asymmetric elevation of the right hemidiaphragm. Bones/joints: Degenerative change. IMPRESSION: No acute airspace or pleural disease.
--- NOTE | 2021-02-05 11:47 | HMH.EDGENADL ---
ED Disposition Clinical Impression: Hyperkalemia Renal failure Qualifiers: Renal failure chronicity: acute on chronic Acute renal failure type: unspecified Chronic kidney disease stage: unspecified stage Qualified Code(s): N17.9 - Acute kidney failure, unspecified Disposition: Admitted As Inpatient Condition on Discharge: Serious Time of Disposition: 13:50 - Critical Care Critical Care Time: Yes Attestation: On , the high probability of a clinically significant, sudden or life threatening deterioration of the following system(s) required my full and direct attention, intervention and personal management. The time I documented below is in addition to time spent performing reported procedures but includes the following listed in this critical care notation. Total Critical Care Time: 30 Vital system(s) involved:: Metabolic Failure, Renal Failure My critical care processes included: Assessment & monitoring of V/S, Initial and Re-exams, Data Review/Interpretation, Coordinating Care, Medication Orders and management, Documentation Medical Decision Making - Medical Records Medical records reviewed: Yes: I reviewed the patient's medical records. - Simone Inquiry Pt receiving controlled substance: No Vital Signs: 02/05/21 11:43 02/05/21 12:14 02/05/21 12:30 Temperature 98.9 F Temperature Source Oral Pulse Rate 76 80 Pulse Rate [Radial] 62 Respiratory Rate 16 14 15 Blood Pressure 98/74 L 105/57 L Blood Pressure [Right Arm] 96/42 L Blood Pressure Mean [Right Arm] 60 Blood Pressure Position [Right Arm] Sitting 02 Sat by Pulse Oximetry 96 98 95 Oxygen Delivery Method Room Air 02/05/21 13:30 02/05/21 14:13 02/05/21 14:46 Temperature Temperature Source Pulse Rate 86 87 94 H Pulse Rate [Radial] Respiratory Rate 15 12 15 Blood Pressure 93/53 L 119/64 107/61 L Blood Pressure [Right Arm] Blood Pressure Mean [Right Arm] Blood Pressure Position [Right Arm] 02 Sat by Pulse Oximetry 98 98 98 Oxygen Delivery Method 02/05/21 15:01 02/05/21 15:55 Temperature Temperature Source Pulse Rate 87 72 Pulse Rate [Radial] Respiratory Rate 13 9 L Blood Pressure 99/66 L 115/60 Blood Pressure [Right Arm] Blood Pressure Mean [Right Arm] Blood Pressure Position [Right Arm] 02 Sat by Pulse Oximetry 99 97 Oxygen Delivery Method - Lab Data Lab Results 02/05/21 12:00: WBC 16.8 H, RBC 3.05 L, Hgb 9.6 L, Hct 31.2 L, MCV 102.4 H, MCH 31.5 H, MCHC 30.8 L, RDW 15.7, Plt Count 201, MPV 8.4, Neut % (Auto) 91.4 H, Lymph % (Auto) 3.9 L, [place] % (Auto) 4.3, Eos % (Auto) 0.1, Baso % (Auto) 0.2, Neut # (Auto) 15.4 H, Lymph # (Auto) 0.7, [place] # (Auto) 0.7, Eos # (Auto) 0.0, Baso # (Auto) 0.0, Total Counted 100, Neutrophils % (Manual) 62, Lymphocytes % (Manual) 29, Monocytes % (Manual) 9, Platelet Estimate Normal, RBC Morphology Normal 02/05/21 12:00: Sodium 133 L, Potassium 7.5 H*, Chloride 103, Carbon Dioxide 21 L, Anion Gap 16.5 H, BUN 61 H, Creatinine 3.10 H, Estimated Creat Clear 27, Estimated GFR 20 L, Est GFR ( Amer) 24 L, Glucose 207 H, Calcium 8.6, Total Bilirubin 2.8 H, AST 434 H*, ALT 124 H, Alkaline Phosphatase 403 H, Troponin I < 0.01, Total Protein 6.8, Albumin 3.5, Globulin 3.3 H, Albumin/Globulin Ratio 1.1 02/05/21 12:29: Blood Type A Positive, Antibody Screen Negative 02/05/21 13:40: SARS-CoV-2 (PCR) Not detected, Influenza A Untype (PCR) Not detected, Influenza Type B (PCR) Not detected Result diagrams: 02/05/21 12:00 02/05/21 14:53 Orders (Tests/Meds): ED MEDICATIONS Generic Name Dose Route Start Last Admin Trade Name Freq PRN Reason Stop Dose Admin Ceftriaxone Sodium 2 gm/ 50 mls @ 100 mls/hr 02/05/21 15:41 02/05/21 15:55 Sodium Chloride IV 02/05/21 16:10 100 mls/hr ONCE ONE Administration Sodium Chloride 750 ml 02/05/21 16:15 Sodium Chloride 0.9% 500ml Bag IV 02/05/21 16:16 ONCE ONE Discontinued Medications Generic Name Dose Route
--- NOTE | 2021-02-05 12:07 | XR_ITS ---
PROCEDURE INFORMATION: Exam: XR Left Foot Exam date and time: 02/05/2021 12:07 PM Age: 75 years old Clinical indication: Injury or trauma; Fall; Bleeding/hemorrhage; Foot; Left; Injury date: 02/05/21 TECHNIQUE: Imaging protocol: XR Left foot. Views: 1 or 2 views. COMPARISON: MR FOOT LT WO/W CON 11/06/2019 9:48 AM FINDINGS: Bones/joints: Osteopenia limits evaluation. No gross evidence for acute bony injury in the visualized left foot. Degenerative change. Soft tissues: No radiopaque soft tissue foreign body. IMPRESSION: Osteopenia limits evaluation. No gross evidence for acute bony injury in the visualized left foot.
--- NOTE | 2021-02-05 12:07 | XR_ITS ---
PROCEDURE INFORMATION: Exam: XR Left Tibia and Fibula Exam date and time: 02/05/2021 12:07 PM Age: 75 years old Clinical indication: Injury or trauma; Fall; Blunt trauma; Lower leg; Left; Injury date: 02/05/21 TECHNIQUE: Imaging protocol: XR Left tibia and fibula. Views: 2 views. COMPARISON: None FINDINGS: Bones/joints: No acute bony injury or malalignment in the left lower leg. Degenerative change and chondrocalcinosis. Small calcaneal spur. Soft tissues: Calcification at the Achilles tendon attachment site. IMPRESSION: No acute bony injury or malalignment in the left lower leg.
--- NOTE | 2021-02-05 12:07 | XR_ITS ---
PROCEDURE INFORMATION: Exam: XR Left Knee Exam date and time: 02/05/2021 12:07 PM Age: 75 years old Clinical indication: Injury or trauma; Fall; Blunt trauma; Knee; Left; Injury date: 02/05/21 TECHNIQUE: Imaging protocol: XR Left knee. Views: 3 views. COMPARISON: None FINDINGS: Bones/joints: No acute bony injury or malalignment in the left knee. Degenerative change and chondrocalcinosis. Small joint effusion and intra-articular calcifications. Soft tissues: Calcification at the quadriceps tendon attachment site. IMPRESSION: No acute bony injury or malalignment in the left knee.
[2021-02-05 12:22] LABS: Basophils % 0.2 % (0.1-2.0); Eosinophils % 0.1 % (0.1-12.0); Hematocrit 31.2 % (42.0-52.0); Hemoglobin 9.6 g/dL (14.1-18.0); Lymphocytes # 0.7 K/mm3 (0.7-4.5); Lymphocytes % 3.9 % (10-50); Mean Corpuscular HGB Conc 30.8 g/dL (31.8-35.4); Mean Corpuscular Hemoglobin 31.5 pg (27.0-31.2); Mean Corpuscular Volume 102.4 fl (80-94); Mean Platelet Volume 8.4 fl (7.4-10.4); Monocytes # 0.7 K/mm3 (0.1-1.0); Monocytes % 4.3 % (1.7-9.3); Neutrophils # 15.4 K/mm3 (1.8-7.8); Neutrophils % 91.4 % (37.0-80.0); Platelet Count 201 K/mm3 (142-424); Red Blood Count 3.05 M/mm3 (4.60-6.20); Red Cell Distribution Width 15.7 % (11.5-17.5); White Blood Count 16.8 K/mm3 (4.8-10.8)
[2021-02-05 12:24] LABS: Chloride 103 mmol/L (98-107); Sodium 133 mmol/L (136-145)
[2021-02-05 12:27] LABS: Alanine Aminotransferase 124 U/L (12-78); Alkaline Phosphatase 403 U/L (38-126); Aspartate Amino Transferase 434 U/L (17-59); Bilirubin,Total 2.8 mg/dl (0.2-1.3); Blood Urea Nitrogen 61 mg/dl (9-20); Creatinine Clearance Estimated 27 mL/min (50-200); Estimated Glomerular Filt Rate 20 ml/min (>60); GFR (African American) 24 ML/MIN (>60); MANUAL DIFFERENTIAL MANUAL DIFFERENTIAL (MANUAL DIFF)
[2021-02-05 12:28] LABS: Albumin Level 3.5 g/dl (3.5-5.0); Albumin/Globulin Ratio 1.1 (1.1-1.8); Anion Gap 16.5 mEq/L (5-15); Calcium 8.6 mg/dl (8.4-10.2); Carbon Dioxide 21 mmol/L (22.0-30.0); Globulin 3.3 g/dL (1.3-3.2); Glucose 207 mg/dl (74-100); Total Protein,Serum 6.8 g/dl (6.3-8.2)
[2021-02-05 12:41] LABS: Troponin I < 0.01 ng/ml (0.00-0.034)
[2021-02-05 12:43] LABS: Potassium 7.5 mmoL/L (3.5-5.1)
--- NOTE | 2021-02-05 12:43 | PC.NURSE ---
notified MD of critical potassium- 7.5
--- NOTE | 2021-02-05 13:16 | PC.NURSE ---
pt with rad.
[2021-02-05 13:28] LABS: Lymphocytes % 29 % (10-50); Monocytes % 9 % (2-9); Neutrophils % 62 % (42-76); Platelet Estimate Normal; RBC Morphology Normal; Total Cells Counted 100
--- NOTE | 2021-02-05 13:40 | PC.NURSE ---
pt's daughter has been updated on plan of care for pt.
--- NOTE | 2021-02-05 13:42 | PC.NURSE ---
NOTIFIED HOUSE OF ADMISSION
[2021-02-05 13:46] LABS: Coronavirus 19, PCR Not Detected (NotDetected); Influenza A, PCR Not Detected (NotDetected); Influenza B, PCR Not Detected (NotDetected)
--- NOTE | 2021-02-05 14:47 | CT_ITS ---
PROCEDURE INFORMATION: Exam: CT Abdomen And Pelvis Without Contrast Exam date and time: 02/05/2021 2:47 PM Age: 75 years old Clinical indication: Condition or disease; Kidney or ureter condition; Acute renal insufficiency; Additional info: Acute renal failure TECHNIQUE: Imaging protocol: Computed tomography of the abdomen and pelvis without contrast. Radiation optimization: All CT scans at this facility use at least one of these dose optimization techniques: automated exposure control; mA and/or kV adjustment per patient size (includes targeted exams where dose is matched to clinical indication); or iterative reconstruction. COMPARISON: CT ABDOMEN PELVIS WO CON 11/19/2020 2:47 PM FINDINGS: Evaluation is limited by motion artifact and absence of intravenous contrast. Inferior thorax: Interstitial prominence. Asymmetric elevation of the right hemidiaphragm. Liver: Fatty infiltration of the liver. Gallbladder and bile ducts: Gallbladder dilatation and cholelithiasis. Pancreas: No pancreatic mass or ductal dilatation. Spleen: Granuloma in the mildly enlarged spleen measuring 12.5 cm in length. Adrenal glands: Unremarkable adrenals. Kidneys and ureters: Renal atrophy. Poorly characterized 12 mm nodular hypodense lesion in the lateral right kidney. No hydronephrosis. Mild infiltration of perinephric fat. Stomach and bowel: Wall thickening in the nondistended stomach and duodenum. Prominent stool. Diverticula, without pericolonic inflammation. Appendix: No acute appendicitis. Intraperitoneal space: No significant free fluid. Vasculature: Vascular calcification. No abdominal aortic aneurysm. Lymph nodes: Subcentimeter lymph nodes. Urinary bladder: Bladder dilatation. Reproductive: Prostate calcifications. Bones/joints: 14 mm bone island in the right acetabular roof. Degenerative change and disc bulging. Vacuum disc. Schmorl's nodes. Soft tissues: Gynecomastia. Infiltration of subcutaneous fat about the umbilicus. IMPRESSION: 1. Wall thickening in the nondistended stomach and duodenum. 2. Gallbladder dilatation and cholelithiasis. 3. Additional findings as described above. COMMENTS: Consistent with the [employer]'s Incidental Findings Committee white paper (J Am Jovita Radiol 2018): Any incidental renal lesion less than 1 cm or classified as too small to characterize, or any incidental cystic renal lesion characterized as simple-appearing, is likely benign. No follow-up imaging is recommended for these lesions per consensus recommendations based on imaging criteria.
[2021-02-05 15:34] LABS: Anion Gap 16.5 mEq/L (5-15); Blood Urea Nitrogen 63 mg/dl (9-20); Calcium 8.6 mg/dl (8.4-10.2); Carbon Dioxide 20 mmol/L (22.0-30.0); Chloride 101 mmol/L (98-107); Creatinine Clearance Estimated 29 mL/min (50-200); Estimated Glomerular Filt Rate 21 ml/min (>60); GFR (African American) 26 ML/MIN (>60); Glucose 196 mg/dl (74-100); Sodium 131 mmol/L (136-145)
[2021-02-05 15:51] LABS: Procalcitonin 17.7 ng/mL (0.0-2.0)
[2021-02-05 15:52] LABS: Potassium 6.5 mmoL/L (3.5-5.1)
[2021-02-05 15:53] LABS: Troponin I 0.01 ng/ml (0.00-0.034)
--- NOTE | 2021-02-05 15:55 | PC.NURSE ---
critical lab values called to arnel meyer rn
[2021-02-05 16:24] LABS: Microscopic, Urine URINE MICROSCOPIC (MICROSCOPIC)
[2021-02-05 16:27] LABS: Lactic Acid 1.5 mmol/L (0.7-2.1)
[2021-02-05 16:31] LABS: Appearance,Urine SL CLOUDY (Clear); Bilirubin,Urine Negative (Negative); Blood, Urine 3+ (Negative); Color,Urine DK YELLOW (Yellow); Glucose,Urine (UA) Negative (Negative); Ketones,Urine Negative (Negative); Leukocyte Esterase,Urine 1+ (Negative); Nitrate,Urine Negative (Negative); PH,Urine 5.5 (5.0-8.5); Protein,Urine TRACE (Negative); Urobilinogen,Urine 0.2 EU/dl (0.2)
--- NOTE | 2021-02-05 16:32 | US_ITS ---
PROCEDURE INFORMATION: Exam: US Abdomen, Limited; Right Upper Quadrant Exam date and time: 02/05/2021 4:32 PM Age: 75 years old Clinical indication: Abdominal pain; Localized; Right upper quadrant (ruq); Additional info: Ruq pain TECHNIQUE: Imaging protocol: US abdomen. Real time ultrasound with image documentation. Limited exam focused on the right upper quadrant. COMPARISON: CT (Scanogram, ABDOMEN, Abdomen-Pelvis 500mm AP/LAT (OUT)) 02/05/2021 3:16 PM FINDINGS: Liver: Unremarkable Gallbladder: Polyps versus stones in the gallbladder measuring up to 5 mm. No wall thickening. No pericholecystic fluid. Common bile duct: Nor CBD measures 7 mm. No intrahepatic ductal dilatation. Pancreas: Visualized pancreas is unremarkable. Right kidney: A hypoechoic lesion in the right kidney upper pole is favored to be a cyst. This may correlate with focal hypodensity seen on CT. It measures about 17 x 13 x 15 mm. IMPRESSION: 1. No acute disease. 2. Probable gallbladder polyps measuring up to 5 mm. Recommend surgical consultation (non emergent) or follow-up in a year. 3. Probable 17 mm cyst on the right kidney.
[2021-02-05 16:45] LABS: Bacteria,Urine 2+ /lpf
[2021-02-05 16:46] LABS: Lipase 500 U/L (23-300)
--- NOTE | 2021-02-05 18:12 | PC.NURSE ---
REPORT CALLED TO FLOOR
[2021-02-05 19:49] LABS: Troponin I 0.02 ng/ml (0.00-0.034)
[2021-02-05 20:22] LABS: POC Glucose,Bedside 155 (70-110)
--- NOTE | 2021-02-05 22:12 | PC.ADMIT ---
[email or web address] [facility] Admission Note: The patient,Tomas Crocker,75 y/o, was given written information regarding hospital policies, unit procedures and contact persons. Patient's smoking status: Former smoker. Vital Signs - 8 hr 02/05/21 14:13 02/05/21 14:46 02/05/21 15:01 Temperature Pulse Rate 87 94 H 87 Pulse Rate [Radial] Respiratory Rate 12 15 13 Blood Pressure 119/64 107/61 L 99/66 L Blood Pressure [Right Arm] 02 Sat by Pulse Oximetry 98 98 99 02/05/21 15:55 02/05/21 16:00 02/05/21 16:31 Temperature Pulse Rate 72 65 80 Pulse Rate [Radial] Respiratory Rate 9 L 9 L 11 L Blood Pressure 115/60 118/63 125/65 Blood Pressure [Right Arm] 02 Sat by Pulse Oximetry 97 97 100 02/05/21 17:01 02/05/21 19:01 02/05/21 19:04 Temperature 97.9 F 98 F Pulse Rate 88 72 Pulse Rate [Radial] 72 Respiratory Rate 12 20 16 Blood Pressure 124/66 117/62 Blood Pressure [Right Arm] 113/35 L 02 Sat by Pulse Oximetry 98 95 02/05/21 20:00 Temperature 97.6 F Pulse Rate Pulse Rate [Radial] 58 L Respiratory Rate 16 Blood Pressure Blood Pressure [Right Arm] 109/53 L 02 Sat by Pulse Oximetry 98 Patient states he uses chewing tobacco and has done so for a couple years now.
[2021-02-05 23:18] LABS: POC Glucose,Bedside 247 (70-110)
--- NOTE | 2021-02-06 01:34 | PC.WOUNDNOTE ---
stage 2 noted to inner gluteal crease right carter left foot right foot left heel-stage 3
[2021-02-06 04:00] VITALS: BP 103/45; PULSE 66; RESP 17; TEMP 37; O2SAT 98
[2021-02-06 04:46] VITALS: BMI 25.4
[2021-02-06 06:04] LABS: POC Glucose,Bedside 162 (70-110)
[2021-02-06 09:00] VITALS: BP 106/44; PULSE 75; RESP 17; TEMP 36.9; O2SAT 97
--- NOTE | 2021-02-06 09:02 | HMH.PHAVTE ---
[facility] Pharmacy VTE Monitoring - Patient Demographics Admission date: 02/05/21 Report Date: 02/06/21 Time: 09:02 Allergies/Adverse Reactions: Patient Allergies No Known Allergies Allergy (Verified 01/25/21 16:13) Height: 1.83 m Weight: 85.445 kg Patient Problems: Current Active Problems Renal failure (Acute) Hyperkalemia (Acute) - VTE Risk Labs: VTE Related Lab Results Hgb 9.6 g/dL (14.1-18.0) L 02/05/21 12:00 Hct 31.2 % (42.0-52.0) L 02/05/21 12:00 Plt Count 201 K/mm3 (142-424) 02/05/21 12:00 BUN 63 mg/dl (9-20) H 02/05/21 14:53 Creatinine 2.90 mg/dl (0.66-1.25) H 02/05/21 14:53 Estimated Creat Clear 29 mL/min (50-200) 02/05/21 14:53 Was VTE Risk Assessment Performed: Yes VTE Score: 4 VTE Risk Level: Low Risk - Prophylaxis VTE Prophylaxis Ordered?: Yes Types of VTE Prophylaxis: TEDS Knee High Location of Applied Device: Bilateral Lower Extremeties
--- NOTE | 2021-02-06 09:19 | HMH.PHAINT ---
MEDICATION RECONCILIATION COMPLETED ON PATIENT USING EXTERNAL FILL HISTORY FROM PHARMACY AND LIST FROM PCP OFFICE. -JOEL RAMIREZD
[2021-02-06 12:05] LABS: POC Glucose,Bedside 329 (70-110)
[2021-02-06 16:00] VITALS: BP 128/70; PULSE 64; RESP 16; TEMP 37.2; O2SAT 97
--- NOTE | 2021-02-06 18:28 | HMH.HP ---
*Admission Date: 02/05/21 *History of present illness: In summary this is a 75-year-old male with history of hypertension and dementia presenting to the emergency department after a fall. Patient clinically stable on arrival. Vital signs within normal limits. Blood pressure borderline hypotensive with systolic 95. Patient receiving IV fluids. Weakness is concerning for anemia, GI bleed, ACS, cardiac arrhythmia, glucose or electrolyte derangement. Will obtain CBC, CMP, chest x-ray, EKG, troponin profile, Hemoccult Laboratory results show stable anemia with hemoglobin 9.6. Not worse than baseline. Metabolic panel shows acute renal failure with creatinine at 3.1. Patient has had chronic renal insufficiency for the last few years, baseline creatinine around 1.7. Has been as high as 4.7. Potassium significantly elevated at 7.5. Slightly peaked T waves, but no other EKG changes. Patient given 1 g calcium gluconate. Given 10 units of IV insulin and D50. Also has leukocytosis of 16,000. Borderline hypotension. He has received 2 L IV fluids. Given 2 g IV Rocephin. Calcitonin came back elevated. Concern for sepsis with an intra-abdominal source. Antibiotics broadened to include Zosyn. Patient given additional 700 cc IV fluids to complete 30 cc/kg IV fluid bolus. Tissue perfusion assessed. Noncontrast head CT shows no intracranial bleed or skull fracture. X-rays reassuring. Patient be admitted for further management and treatment of generalized weakness, hyperkalemia, renal failure. Case discussed with Dr. Holder this per ER physician Patient has been experiencing several falls. On this occasion he fell between the bed a a piece of furniture and was unable to extricate himself. Prior to this he fell in the bathroom. He was seen recently in the office, and insulin regimen clarified. Denies hypoglycemia. Known renal insufficiency with propensity for hyperkalemia. Mild dementia, last office visit was with daughter. Feeling much better since admission, is at baseline mentation and w/o complaints of chest pain or dyspnea. He avulsed his great toe on the left and has superficial abrasions on his left carter from falling. He has seen podiatry for diabetic foot infections, and suffers from diabetic neuropathy with numbness/tingling. This no doubt contributes to his falling. Patient had covid earlier in the year and spent 1 week at [facility] in [place]. WBC/lipase/lft's elevated u/s imaging shows no abnormality in visualized liver or pancreas. CT abdom taken, no report available abdom is soft and w/o focality on exam now [facility] History Medical History: Reports:: Anxiety, Depression, Diabetes Mellitus Type 2, Gastroesophageal Reflux Disease(GERD), Hyperlipidemia, Hypertension Denies:: Cancer, Diabetes Mellitus Type 1, Internal Pacemaker, MRSA *Have you ever received a pneumonia vaccine?: Yes *Have you received a flu vaccine this season?: Yes Other Medical History: Reports: Arthritis, Hypothyroidism, Thyroid Disease, Other Laterality Cases: Right: Arthroscopy Shoulder, Bilateral: Carpal Tunnel Release, Cataract Other Surgeries: Yes: No Previous Surgery, Colonoscopy, EGD, Other. 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) Fractures: No - *Social History Last grade of school completed: GED Smoking Status: Former smoker Tobacco Type: cigarettes, smokeless tobacco # Packs/Day (cigarettes): 3 #Yrs smoked (if former smoker): 13 Smoking End Date: 1982 Alcohol Intake: never Substance Use Type: denies use *Occupational Status:: retired Housing: house Household Members: family *Travel in the last 8 weeks: None - Psychiatric History Pschychiatric History:: Reports:: Anxiety, Depression Family Hx:: Cancer, Hypertension Review of Systems - Constitutional Reports weakness - Eyes Denies change in vision - ENT Denies abnormal hearing - *Cardiovascular Denies chest pain - *Respiratory Denies chest congestion
--- NOTE | 2021-02-06 19:01 | XR_ITS ---
PROCEDURE INFORMATION: Exam: XR Chest Exam date and time: 02/06/2021 7:01 PM Age: 75 years old Clinical indication: Other: Leukocytosis TECHNIQUE: Imaging protocol: XR of the chest. Views: 1 view. COMPARISON: CR XR CHEST PORTABLE 02/05/2021 1:04 PM FINDINGS: Lungs: Calcified granuloma in the right lower lobe. Lungs are otherwise clear. No consolidation. Pleural spaces: No pleural effusion. No pneumothorax. Heart/Mediastinum: Unremarkable. No cardiomegaly. Bones/joints: Advanced chronic degenerative changes in the right shoulder. IMPRESSION: No acute findings.
[2021-02-06 19:03] LABS: Basophils % 0.4 % (0.1-2.0); Eosinophils # 0.2 K/mm3 (0.0-0.4); Eosinophils % 1.9 % (0.1-12.0); Hematocrit 28.7 % (42.0-52.0); Lymphocytes # 0.9 K/mm3 (0.7-4.5); Lymphocytes % 9.4 % (10-50); Mean Corpuscular HGB Conc 31.2 g/dL (31.8-35.4); Mean Corpuscular Hemoglobin 31.9 pg (27.0-31.2); Mean Corpuscular Volume 102.2 fl (80-94); Mean Platelet Volume 8.9 fl (7.4-10.4); Monocytes # 0.5 K/mm3 (0.1-1.0); Monocytes % 5.7 % (1.7-9.3); Neutrophils # 7.6 K/mm3 (1.8-7.8); Neutrophils % 82.6 % (37.0-80.0); Platelet Count 156 K/mm3 (142-424); Red Cell Distribution Width 15.8 % (11.5-17.5); White Blood Count 9.2 K/mm3 (4.8-10.8)
[2021-02-06 19:15] LABS: Chloride 103 mmol/L (98-107); Sodium 133 mmol/L (136-145)
[2021-02-06 19:16] LABS: Potassium 5.9 mmoL/L (3.5-5.1)
[2021-02-06 19:18] LABS: Alanine Aminotransferase 26 U/L (12-78); Albumin Level 3.2 g/dl (3.5-5.0); Alkaline Phosphatase 288 U/L (38-126); Anion Gap 13.9 mEq/L (5-15); Aspartate Amino Transferase 233 U/L (17-59); Bilirubin,Total 2.6 mg/dl (0.2-1.3); Blood Urea Nitrogen 51 mg/dl (9-20); Calcium 8.1 mg/dl (8.4-10.2); Carbon Dioxide 22 mmol/L (22.0-30.0); Creatinine Clearance Estimated 34 mL/min (50-200); Estimated Glomerular Filt Rate 28 ml/min (>60); GFR (African American) 34 ML/MIN (>60); Globulin 3.3 g/dL (1.3-3.2); Glucose 243 mg/dl (74-100); Lipase 483 U/L (23-300); Total Protein,Serum 6.5 g/dl (6.3-8.2)
[2021-02-06 20:00] VITALS: BP 127/71; PULSE 63; RESP 16; TEMP 36.7; O2SAT 99
[2021-02-06 20:41] LABS: Procalcitonin 7.45 ng/mL (0.0-2.0)
[2021-02-06 21:52] LABS: POC Glucose,Bedside 262 (70-110)
[2021-02-06 21:55] LABS: POC Glucose,Bedside 207 (70-110)
[2021-02-07 04:48] VITALS: BP 133/85; PULSE 79; RESP 20; TEMP 36.7; O2SAT 98
[2021-02-07 04:50] VITALS: BMI 24.7
[2021-02-07 05:37] LABS: POC Glucose,Bedside 125 (70-110)
[2021-02-07 06:19] LABS: Basophils % 0.3 % (0.1-2.0); Eosinophils # 0.3 K/mm3 (0.0-0.4); Eosinophils % 3.7 % (0.1-12.0); Hematocrit 28.4 % (42.0-52.0); Hemoglobin 9.2 g/dL (14.1-18.0); Lymphocytes # 1.3 K/mm3 (0.7-4.5); Mean Corpuscular HGB Conc 32.4 g/dL (31.8-35.4); Mean Corpuscular Hemoglobin 32.7 pg (27.0-31.2); Mean Corpuscular Volume 100.9 fl (80-94); Mean Platelet Volume 8.1 fl (7.4-10.4); Monocytes # 0.5 K/mm3 (0.1-1.0); Monocytes % 6.4 % (1.7-9.3); Neutrophils # 6.2 K/mm3 (1.8-7.8); Neutrophils % 74.5 % (37.0-80.0); Platelet Count 173 K/mm3 (142-424); Red Blood Count 2.82 M/mm3 (4.60-6.20); White Blood Count 8.3 K/mm3 (4.8-10.8)
[2021-02-07 06:41] LABS: Alanine Aminotransferase 17 U/L (12-78); Albumin Level 3.1 g/dl (3.5-5.0); Albumin/Globulin Ratio 0.9 (1.1-1.8); Alkaline Phosphatase 311 U/L (38-126); Aspartate Amino Transferase 190 U/L (17-59); Bilirubin,Total 2.8 mg/dl (0.2-1.3); Blood Urea Nitrogen 48 mg/dl (9-20); Calcium 8.3 mg/dl (8.4-10.2); Carbon Dioxide 23 mmol/L (22.0-30.0); Chloride 105 mmol/L (98-107); Creatinine Clearance Estimated 36 mL/min (50-200); Estimated Glomerular Filt Rate 31 ml/min (>60); GFR (African American) 38 ML/MIN (>60); Globulin 3.4 g/dL (1.3-3.2); Glucose 115 mg/dl (74-100); Sodium 135 mmol/L (136-145); Total Protein,Serum 6.5 g/dl (6.3-8.2)
--- NOTE | 2021-02-07 08:37 | US_ITS ---
FINAL REPORT CLINICAL HISTORY: Chronic non healing ulcer of the left heel. Nail avulsion of left great toe. Toe amputations noted on right foot to include 2nd and 3rd digits. HTN, bilateral claudication, bilateral rest pain. 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 IMPRESSION: Mildly depressed DREW on the left. Reviewed, Interpreted and Dictated by Danny Shannon MD Transcribed by Erinn Malone Authenticated by Danny Shannon MD on 02/07/2021 01:20:14 PM [facility]
--- NOTE | 2021-02-07 08:52 | P.CONS_ITS ---
*Admission Date: 02/07/21 <Aleyda Khan 02/07/21 10:52> *Reason for consult:: diabetic foot, nail trauma post fall <Aleyda Khan 02/07/21 10:52> *History of present illness: The patient is a 75 year-old male well-known to the podiatry team who was admitted 02/05/21 with history of hypertension and dementia presenting to the emergency department after a fall. Patient was clinically stable on arrival. Patient avulsed his great toe on the left and has superficial abrasion on his carter from falling. Patient has personal history of diabetic neuropathy with numbness and tingling. PCP team consulted podiatry for evaluation of left hallux nail avulsion and left heel diabetic wound. Patient currently lying in bed, alert and oriented. No acute distress noted. Bilateral lower extremities with several abrasions, b/l foot dry. 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 Left foot diabetic wound noted to heel. Left hallux nail avulsion. Patient complaining of pain to left heel. B/l feet dorsalis pedis and posterior tibial pulses weakly palpable. We will obtain DREW and treat accordingly. <Aleyda Khan 02/07/21 17:40> [facility] History I have reviewed the patient's past medical history: Yes <Aleyda Khan 02/07/21 17:38> Medical History: Reports:: Anxiety, Depression, Diabetes Mellitus Type 2, Gastroesophageal Reflux Disease(GERD), Hyperlipidemia, Hypertension Denies:: Cancer, Diabetes Mellitus Type 1, Internal Pacemaker, MRSA <Aleyda Khan 02/07/21 17:38> *Have you ever received a pneumonia vaccine?: Yes <Aleyda Khan 02/07/21 09:14> *Have you received a flu vaccine this season?: Yes <Carlos Khanher 02/07/21 09:14> Other Medical History: Reports: Arthritis, Hypothyroidism, Thyroid Disease, Other <Carlos Khanher 02/07/21 09:14> Laterality Cases: Right: Arthroscopy Shoulder, Bilateral: Carpal Tunnel Release, Cataract <Carlos Khanher 02/07/21 09:14> Other Surgeries: Yes: No Previous Surgery, Colonoscopy, EGD, Other. 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 toe amputation) <[facility] 02/07/21 09:14> Fractures: No <[facility] 02/07/21 09:14> - *Social History Last grade of school completed: GED <[facility] 02/07/21 09:14> Smoking Status: Former smoker <[facility] 02/07/21 09:14> Tobacco Type: cigarettes, smokeless tobacco <[facility] 02/07/21 09:14> # Packs/Day (cigarettes): 3 <[facility] 02/07/21 09:14> #Yrs smoked (if former smoker): 13 <[facility] 02/07/21 09:14> Smoking End Date: 1982 <[facility] 02/07/21 09:14> Alcohol Intake: never <[facility] 02/07/21 09:14> Substance Use Type: denies use <[facility] 02/07/21 09:14> *Occupational Status:: retired [facility] 02/07/21 09:14> Housing: house <[facility] 02/07/21 09:14> Household Members: family <[facility] 02/07/21 09:14> *Travel in the last 8 weeks: None <[facility] 02/07/21 09:14> - Psychiatric History Pschychiatric History:: Reports:: Anxiety, Depression <[facility] 02/07/21 09:14> Family Hx:: Cancer, Hypertension <[facility] 02/07/21 09:14> Review of Systems - *Neurologic Reports abnormal walking, Reports frequent falls, Reports lack of coordination, Reports memory loss, Reports numbness, Reports tingling/numbness/burning sensations, Reports weakness, Denies abnormal hearing, Denies dizziness, Denies headache(s) <[facility] 02/07/21 09:14> Meds Home Medications Medication Instructions Recorded Confirmed Type Atorvastatin Calcium [Lipitor 40mg
--- NOTE | 2021-02-07 08:52 | HMH.ORTHOCON ---
*Admission Date: 02/07/21 <Aleyda Khan 02/07/21 10:52> *Reason for consult:: diabetic foot, nail trauma post fall <Aleyda Khan 02/07/21 10:52> *History of present illness: The patient is a 75 year-old male well-known to the podiatry team who was admitted 02/05/21 with history of hypertension and dementia presenting to the emergency department after a fall. Patient was clinically stable on arrival. Patient avulsed his great toe on the left and has superficial abrasion on his carter from falling. Patient has personal history of diabetic neuropathy with numbness and tingling. PCP team consulted podiatry for evaluation of left hallux nail avulsion and left heel diabetic wound. Patient currently lying in bed, alert and oriented. No acute distress noted. Bilateral lower extremities with several abrasions, b/l foot dry. 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 Left foot diabetic wound noted to heel. Left hallux nail avulsion. Patient complaining of pain to left heel. B/l feet dorsalis pedis and posterior tibial pulses weakly palpable. We will obtain DREW and treat accordingly. <Aleyda Khan 02/07/21 17:40> [facility] History I have reviewed the patient's past medical history: Yes <Aleyda Khan 02/07/21 17:38> Medical History: Reports:: Anxiety, Depression, Diabetes Mellitus Type 2, Gastroesophageal Reflux Disease(GERD), Hyperlipidemia, Hypertension Denies:: Cancer, Diabetes Mellitus Type 1, Internal Pacemaker, MRSA <Aleyda Khan 02/07/21 17:38> *Have you ever received a pneumonia vaccine?: Yes <Aleyda Khan 02/07/21 09:14> *Have you received a flu vaccine this season?: Yes <Carlos Khanher 02/07/21 09:14> Other Medical History: Reports: Arthritis, Hypothyroidism, Thyroid Disease, Other <Carlos Khanher 02/07/21 09:14> Laterality Cases: Right: Arthroscopy Shoulder, Bilateral: Carpal Tunnel Release, Cataract <Carlos Khanher 02/07/21 09:14> Other Surgeries: Yes: No Previous Surgery, Colonoscopy, EGD, Other. No: Pacemaker [facility] 02/07/21 09:14> Amputation: Yes (Right 2nd and 3rd toe amputation) <[facility] 02/07/21 09:14> Fractures: No <[facility] 02/07/21 09:14> - *Social History Last grade of school completed: GED <[facility] 02/07/21 09:14> Smoking Status: Former smoker <[facility] 02/07/21 09:14> Tobacco Type: cigarettes, smokeless tobacco <[facility] 02/07/21 09:14> # Packs/Day (cigarettes): 3 <[facility] 02/07/21 09:14> #Yrs smoked (if former smoker): 13 <[facility] 02/07/21 09:14> Smoking End Date: 1982 <[facility] 02/07/21 09:14> Alcohol Intake: never <[facility] 02/07/21 09:14> Substance Use Type: denies use <[facility] 02/07/21 09:14> *Occupational Status:: retired <[facility] 02/07/21 09:14> Housing: house <[facility] 02/07/21 09:14> Household Members: family <[facility] 02/07/21 09:14> *Travel in the last 8 weeks: None <[facility] 02/07/21 09:14> - Psychiatric History Pschychiatric History:: Reports:: Anxiety, Depression <[facility] 02/07/21 09:14> Family Hx:: Cancer, Hypertension <[facility] 02/07/21 09:14> Review of Systems - *Neurologic Reports abnormal walking, Reports frequent falls, Reports lack of coordination, Reports memory loss, Reports numbness, Reports tingling/numbness/burning sensations, Reports weakness, Denies abnormal hearing, Denies dizziness, Denies headache(s) <[facility] 02/07/21 09:14> Meds Home Medications Medication Instructions Recorded Confirmed Type Atorvastatin Calcium [Lipitor 40mg 40 mg PO HS 11/19/20 02/06/21 History Tab] Carbidopa/Levodopa [Sinemet 25-100 1 each PO QID 11/19/20 02/06/21 History mg Tablet] Insulin Glargine,Hum.rec.anlog 60 units SQ DAILY 11/19/20 02/06/21 History [Lantus Solostar U-100 Insulin] Levothyroxine Sodium [Synthroid 25 mcg PO DAILY 11/19/20 02/06/21
--- NOTE | 2021-02-07 10:03 | HMH.ACPN2 ---
Internal Medicine - PN: Subj *Date: 02/07/21 *Time: 12:13 Interval history: 35-year-old male patient sitting up in bed resting quietly denies any respiratory distress or chest pain during the night. He does report that he has been taking all his medication per instruction this morning BUN and creatinine decreased to 48 and 2.1, white blood cell count i continues to decrease to 8.1 Exam Vital signs and Labs for Last 24 Hours: Temp Pulse Resp BP Pulse Ox 98.1 F 79 20 133/85 98 02/07/21 04:48 02/07/21 04:48 02/07/21 04:48 02/07/21 04:48 02/07/21 04:48 Laboratory Results - last 24 hr 02/06/21 11:52: POC Glucose 329 H* 02/06/21 17:01: POC Glucose 262 H 02/06/21 18:55: WBC 9.2 D, RBC 2.80 L, Hgb 9.0 L, Hct 28.7 L, MCV 102.2 H, MCH 31.9 H, MCHC 31.2 L, RDW 15.8, Plt Count 156, MPV 8.9, Neut % (Auto) 82.6 H, Lymph % (Auto) 9.4 L, [place] % (Auto) 5.7, Eos % (Auto) 1.9, Baso % (Auto) 0.4, Neut # (Auto) 7.6, Lymph # (Auto) 0.9, [place] # (Auto) 0.5, Eos # (Auto) 0.2, Baso # (Auto) 0.0 02/06/21 18:55: Sodium 133 L, Potassium 5.9 H, Chloride 103, Carbon Dioxide 22, Anion Gap 13.9, BUN 51 H, Creatinine 2.30 H D, Estimated Creat Clear 34, Estimated GFR 28 L, Est GFR ( Amer) 34 L D, Glucose 243 H, Calcium 8.1 L, Total Bilirubin 2.6 H, AST 233 H D, ALT 26 D, Alkaline Phosphatase 288 H, Total Protein 6.5, Albumin 3.2 L, Globulin 3.3 H, Albumin/Globulin Ratio 1.0 L 02/06/21 18:55: Lipase 483 H 02/06/21 18:55: Procalcitonin 7.45 H 02/06/21 21:49: POC Glucose 207 H 02/07/21 05:19: POC Glucose 125 H 02/07/21 05:54: Sodium 135 L, Potassium 5.0, Chloride 105, Carbon Dioxide 23, Anion Gap 12.0, BUN 48 H, Creatinine 2.10 H, Estimated Creat Clear 36, Estimated GFR 31 L, Est GFR ( Amer) 38 L, Glucose 115 H D, Calcium 8.3 L, Total Bilirubin 2.8 H, AST 190 H, ALT 17 D, Alkaline Phosphatase 311 H, Total Protein 6.5, Albumin 3.1 L, Globulin 3.4 H, Albumin/Globulin Ratio 0.9 L 02/07/21 05:54: WBC 8.3, RBC 2.82 L, Hgb 9.2 L, Hct 28.4 L, MCV 100.9 H, MCH 32.7 H, MCHC 32.4, RDW 16.0, Plt Count 173, MPV 8.1, Neut % (Auto) 74.5, Lymph % (Auto) 15.0, [place] % (Auto) 6.4, Eos % (Auto) 3.7, Baso % (Auto) 0.3, Neut # (Auto) 6.2, Lymph # (Auto) 1.3, [place] # (Auto) 0.5, Eos # (Auto) 0.3, Baso # (Auto) 0.0 I & O for Last 24 hours: Intake & Output 02/04/21 02/05/21 02/06/21 02/07/21 23:59 23:59 23:59 23:59 Intake Total 240 / 240 1350 / 1350 720 / 720 Output Total 1000 / 1000 850 / 1650 800 / 800 Balance -760 / -760 500 / -300 -80 / -80 Weight 188 lb 9 oz 188 lb 6 oz 182 lb 15.739 oz Microbiology Reports for the Last 24 Hours: Microbiology 02/05/21 15:40 Urine,Clean Catch Urine Culture - Preliminary NO GROWTH AFTER 24 HOURS - Constitutional no acute distress, chronically ill appearing - *Routine HEENT Exam Head: Present: normocephalic Eye: Present: EOMI ENT: Present: mucous membranes moist - *Routine Neck Exam Present: trachea midline. Absent: tracheal deviation - *Routine Respiratory Exam Present: CTA bilaterally. Absent: accessory muscle use - *Routine Cardiovascular Exam Present: RRR - *Routine Abdominal Exam Present: soft, normoactive bowel sounds. Absent: tenderness, firm - *Routine Extremities Exam Present: full ROM, pulses intact. Absent: cyanosis, clubbing, edema, calf tenderness - *Routine Skin Exam Present: dry, wounds. Absent: intact, cyanosis, erythema Comments: Abrasions BLE L Heel Assessment and Plan (1) Acute hyperkalemia Status: Acute Category: Medical Code(s): E87.5 - Hyperkalemia (2) Acute renal failure Status: Acute Qualifiers: Acute renal failure type: unspecified Qualified Code(s): N17.9 - Acute kidney failure, unspecified Category: Medical Code(s): N17.9 - Acute kidney failure, unspecified (3) Nail avulsion of toe Status: Acute Qualifiers: Encounter type: subsequent encounter Qualified Code(s): S91.209D - Unspec
[2021-02-07 11:03] LABS: POC Glucose,Bedside 147 (70-110)
--- NOTE | 2021-02-07 12:14 | HMH.PTEV ---
Physical Therapy Evaluation Rehab PT IP Evaluation Start: 02/06/21 19:05 Freq: ONCE Status: Active Protocol: Document 02/07/21 12:11 PHORJUSTINE (Rec: 02/07/21 12:14 PHORNE [id number]) Subjective/History History History 75 yowm adm to [facility] with hx of multipel falls and parkinson's disease. He reports he lives with his daughter and uses a cane or walker for ambulation independently at baseline. Subjective Subjective No c/o this am, reports he feels tired, but agrees to treatment. Rehab PT IP Eval Objective Appearance Patient Behavior Appropriate Patient Orientation Person,Place,Time Difficulty following instructions none Speech Pattern Clear Ambulation Patient Able to Ambulate Yes Ambulation Observation IP General Gait Pattern Observation Shuffling Step Ambulation Distance (feet) 20 Ambulation Assistive Device Rolling Walker Ambulation Ability Contact Guard/Hand Hold Balance Ability to Arise Able, uses arms to help Sitting Balance Steady, safe Standing Balance Steady, wide stance Dynamic Sitting Balance Ability Good Dynamic Standing Balance Ability Fair Transfers Bed Transfer Ability Contact Guard/Hand Hold Chair Transfer Ability Contact Guard/Hand Hold Sit to Stand Bed Transfer Ability Contact Guard/Hand Hold Sit to Stand Chair Transfer Ability Contact Guard/Hand Hold Rehab PT IP prob,goals,plan Problems Date of Evaluation: 02/07/21 PT IP Problems Bed Mobility,Transfers,Gait Rehab Potential Rehab Potential Good Plan PT Intervention Plan Bed Mobility,Transfers,Gait, Therapeutic Exercise PT Plan Frequency BID Duration LOS Discharge Goals Bed Transfer Ability Supervision/Stand by Sit to Stand Chair Transfer Ability Supervision/Stand by Ambulation Assistive Device Rolling Walker Ambulation Distance (feet) 40 Discharge Plan PT Discharge Plan Pt appears to be appropriate to return home with assistance at this time. recommend home health therapy upon D/C. G -code Required No Eval Complexity Eval Charge Codes 93473 - Moderate Complexity PHYSICIAN CERTIFICATION: I certify the specified therapy services for Tomas Crocker are required, authorized, and reviewed every 30 days.
--- NOTE | 2021-02-07 12:20 | HMH.PTWOUND ---
Rehab Inpt Wound Evaluation Rehab IP Wound Evaluation Start: 02/06/21 00:30 Freq: ONCE Status: Active Protocol: Document 02/07/21 12:15 PHOBERTRAM (Rec: 02/07/21 12:20 PHORNE [id number]) Rehab PT Wound Assessment Subjective Subjective 75 yowm adm to [facility] with multiple abrasions on B LE. No c/o this am, reports he feels tired, but agrees to treatment. Wound Left Anterior Alexandra Wound Type Abrasion Is This a Chronic Wound No Wound Length (cm) 8.0 Wound Width (cm) 4.0 Wound Bed Appearance [place] Wound Margins Description Well Defined Surrounding Tissue Appearance [place] Drainage Amount None Dressing Change Patient Tolerance Tolerated Well Plan/Recommendation Comment Nsg to follow and change dressings as needed, no debridement required at this time. L heel wound is closed at this time, but does require adequate pressure relief at all times. Eval Complexity Eval Charge Codes 39349 - Moderate Complexity PHYSICIAN CERTIFICATION: I certify the specified therapy services for Tomas Crocker are required, authorized, and reviewed every 30 days.
[2021-02-07 12:56] VITALS: BMI 24.7
[2021-02-07 16:00] VITALS: BP 120/66; PULSE 62; RESP 16; TEMP 36.8; O2SAT 98
[2021-02-07 17:54] LABS: POC Glucose,Bedside 240 (70-110)
[2021-02-07 20:00] VITALS: BP 125/59; PULSE 81; RESP 14; TEMP 36.9; O2SAT 99
[2021-02-07 23:12] LABS: POC Glucose,Bedside 184 (70-110)
[2021-02-08 05:00] VITALS: BP 115/65; PULSE 68; RESP 14; TEMP 37; O2SAT 98; BMI 23.9
[2021-02-08 05:33] LABS: POC Glucose,Bedside 161 (70-110)
[2021-02-08 08:52] VITALS: BP 133/65; PULSE 59; RESP 16; TEMP 37; O2SAT 97
--- NOTE | 2021-02-08 09:11 | HMH.ACPN2 ---
Internal Medicine - PN: Subj *Date: 02/08/21 *Time: 16:26 Interval history: 75-year-old male patient resting in bed quietly he does report some epigastric burning/discomfort. PT OT is been seen he has been up and walking in room. Urine and blood cultures displayed no growth at 48 hours Exam Vital signs and Labs for Last 24 Hours: Temp Pulse Resp BP Pulse Ox 98.6 F 59 L 16 133/65 97 02/08/21 08:52 02/08/21 08:52 02/08/21 08:52 02/08/21 08:52 02/08/21 08:52 Laboratory Results - last 24 hr 02/07/21 10:48: POC Glucose 147 H 02/07/21 17:39: POC Glucose 240 H 02/07/21 23:02: POC Glucose 184 H 02/08/21 05:18: POC Glucose 161 H I & O for Last 24 hours: Intake & Output 02/05/21 02/06/21 02/07/21 02/08/21 23:59 23:59 23:59 23:59 Intake Total 240 / 240 1350 / 1350 1080 / 1080 2393 / 2393 Output Total 1000 / 1000 850 / 1650 1700 / 1700 Balance -760 / -760 500 / -300 -620 / -620 2393 / 2393 Weight 188 lb 9 oz 188 lb 6 oz 182 lb 15.739 oz 177 lb Microbiology Reports for the Last 24 Hours: Microbiology 02/05/21 15:40 Blood - Right Blood Culture - Preliminary NO GROWTH AFTER 48 HOURS 02/05/21 15:40 Blood - Right Blood Culture - Preliminary NO GROWTH AFTER 48 HOURS 02/05/21 15:40 Urine,Clean Catch Urine Culture - Final NO GROWTH AFTER 48 HOURS - Constitutional no acute distress, chronically ill appearing - *Routine HEENT Exam Head: Present: normocephalic, other ENT: Present: mucous membranes moist - *Routine Neck Exam Present: trachea midline. Absent: tracheal deviation - *Routine Respiratory Exam Present: CTA bilaterally. Absent: accessory muscle use - *Routine Cardiovascular Exam Present: RRR - *Routine Abdominal Exam Present: soft, normoactive bowel sounds. Absent: tenderness, distended - *Routine Extremities Exam Present: full ROM, pulses intact. Absent: cyanosis, clubbing - *Routine Skin Exam Present: dry, wounds. Absent: cyanosis, erythema Comments: Abrasions BLE L Heel - *Routine Neurological Exam Present: alert, oriented X3. Absent: motor deficit - Routine Psychiatric Exam Present: normal affect, normal thought process Assessment and Plan (1) Acute hyperkalemia Status: Acute Category: Medical Code(s): E87.5 - Hyperkalemia (2) Acute renal failure Status: Acute Qualifiers: Acute renal failure type: unspecified Qualified Code(s): N17.9 - Acute kidney failure, unspecified Category: Medical Code(s): N17.9 - Acute kidney failure, unspecified (3) Nail avulsion of toe Status: Acute Qualifiers: Encounter type: subsequent encounter Qualified Code(s): S91.209D - Unspecified open wound of unspecified toe(s) with damage to nail, subsequent encounter Category: Medical Code(s): S91.209A - Unspecified open wound of unspecified toe(s) with damage to nail, initial encounter (4) Type 2 diabetes mellitus with diabetic neuropathy, with long-term current use of insulin Status: Acute Category: Medical Code(s): E11.40 - Type 2 diabetes mellitus with diabetic neuropathy, unspecified; Z79.4 - [facility] (current) use of insulin (5) Uncontrolled diabetes mellitus Status: Acute Qualifiers: Diabetes mellitus type: type 2 Glycemic state: with hyperglycemia Qualified Code(s): E11.65 - Type 2 diabetes mellitus with hyperglycemia Category: Medical Code(s): E11.65 - Type 2 diabetes mellitus with hyperglycemia (6) Nephropathy Status: Chronic Category: Medical Code(s): N28.9 - Disorder of kidney and ureter, unspecified (7) Parkinson disease Status: Chronic Category: Medical Code(s): G20 - Parkinson's disease (8) Pain of left heel Status: Acute Category: Medical Code(s): M79.672 - Pain in left foot (9) Encounter for wound care Start date: 02/07/21 Status: Acute Category: Medical Code(s): Z51.89
[2021-02-08 12:12] LABS: Basophils % 0.7 % (0.1-2.0); Eosinophils # 0.1 K/mm3 (0.0-0.4); Eosinophils % 2.5 % (0.1-12.0); Hematocrit 31.4 % (42.0-52.0); Hemoglobin 9.9 g/dL (14.1-18.0); Lymphocytes # 0.8 K/mm3 (0.7-4.5); Lymphocytes % 14.4 % (10-50); Mean Corpuscular HGB Conc 31.5 g/dL (31.8-35.4); Mean Corpuscular Hemoglobin 32.3 pg (27.0-31.2); Mean Corpuscular Volume 102.8 fl (80-94); Mean Platelet Volume 8.6 fl (7.4-10.4); Monocytes # 0.3 K/mm3 (0.1-1.0); Neutrophils # 4.4 K/mm3 (1.8-7.8); Neutrophils % 77.3 % (37.0-80.0); Platelet Count 200 K/mm3 (142-424); Red Blood Count 3.05 M/mm3 (4.60-6.20); Red Cell Distribution Width 15.9 % (11.5-17.5); White Blood Count 5.6 K/mm3 (4.8-10.8)
[2021-02-08 12:17] LABS: Chloride 107 mmol/L (98-107); Sodium 139 mmol/L (136-145)
[2021-02-08 12:20] LABS: Blood Urea Nitrogen 31 mg/dl (9-20); Creatinine Clearance Estimated 43 mL/min (50-200); Estimated Glomerular Filt Rate 40 ml/min (>60); GFR (African American) 48 ML/MIN (>60)
[2021-02-08 12:21] LABS: Calcium 8.4 mg/dl (8.4-10.2); Carbon Dioxide 22 mmol/L (22.0-30.0); Glucose 277 mg/dl (74-100)
[2021-02-08 12:28] LABS: POC Glucose,Bedside 294 (70-110)
[2021-02-08 15:33] VITALS: BP 121/61; PULSE 62; RESP 18; TEMP 37.1; O2SAT 97
[2021-02-08 16:00] VITALS: BP 126/54; PULSE 56; RESP 18; TEMP 37.1; O2SAT 97
[2021-02-08 20:00] VITALS: BP 128/70; PULSE 62; RESP 16; TEMP 36.8; O2SAT 98
[2021-02-09 04:00] VITALS: BP 130/67; PULSE 65; RESP 16; TEMP 36.6; O2SAT 99
[2021-02-09 05:00] VITALS: BMI 35.7
--- NOTE | 2021-02-09 06:09 | PC.NURSE ---
Pt c/o of nausea x2 t/o shift, admin meds per MAR, with some relief. Changed dressing on left heel, C/D/I. FSBS have been 171 and 294. Call light within reach.
[2021-02-09 06:16] LABS: POC Glucose,Bedside 294 (70-110)
[2021-02-09 07:28] LABS: Basophils % 0.5 % (0.1-2.0); Eosinophils % 0.5 % (0.1-12.0); Hematocrit 31.3 % (42.0-52.0); Hemoglobin 9.8 g/dL (14.1-18.0); Lymphocytes # 0.8 K/mm3 (0.7-4.5); Lymphocytes % 10.4 % (10-50); Mean Corpuscular HGB Conc 31.3 g/dL (31.8-35.4); Mean Corpuscular Hemoglobin 31.9 pg (27.0-31.2); Mean Corpuscular Volume 101.9 fl (80-94); Mean Platelet Volume 8.5 fl (7.4-10.4); Monocytes # 0.3 K/mm3 (0.1-1.0); Monocytes % 4.4 % (1.7-9.3); Neutrophils # 6.1 K/mm3 (1.8-7.8); Neutrophils % 84.2 % (37.0-80.0); Platelet Count 161 K/mm3 (142-424); Red Blood Count 3.07 M/mm3 (4.60-6.20); Red Cell Distribution Width 15.8 % (11.5-17.5); White Blood Count 7.2 K/mm3 (4.8-10.8)
[2021-02-09 07:54] LABS: Anion Gap 14.7 mEq/L (5-15); Blood Urea Nitrogen 24 mg/dl (9-20); Calcium 8.1 mg/dl (8.4-10.2); Carbon Dioxide 21 mmol/L (22.0-30.0); Chloride 105 mmol/L (98-107); Creatinine Clearance Estimated 59 mL/min (50-200); Estimated Glomerular Filt Rate 54 ml/min (>60); GFR (African American) 65 ML/MIN (>60); Glucose 252 mg/dl (74-100); Potassium 4.7 mmoL/L (3.5-5.1); Sodium 136 mmol/L (136-145)
[2021-02-09 08:00] VITALS: BP 123/66; PULSE 73; RESP 16; TEMP 36.8; O2SAT 97
--- NOTE | 2021-02-09 08:06 | HMH.ACPN2 ---
Internal Medicine - PN: Subj *Date: 02/09/21 *Time: 08:06 Exam Vital signs and Labs for Last 24 Hours: Temp Pulse Resp BP Pulse Ox 97.9 F 65 16 130/67 99 02/09/21 04:00 02/09/21 04:00 02/09/21 04:00 02/09/21 04:00 02/09/21 04:00 Laboratory Results - last 24 hr 02/08/21 10:40: WBC 5.6 D, RBC 3.05 L, Hgb 9.9 L, Hct 31.4 L, MCV 102.8 H, MCH 32.3 H, MCHC 31.5 L, RDW 15.9, Plt Count 200, MPV 8.6, Neut % (Auto) 77.3, Lymph % (Auto) 14.4, [place] % (Auto) 5.0, Eos % (Auto) 2.5, Baso % (Auto) 0.7, Neut # (Auto) 4.4, Lymph # (Auto) 0.8, [place] # (Auto) 0.3, Eos # (Auto) 0.1, Baso # (Auto) 0.0 02/08/21 10:40: Sodium 139, Potassium 5.0, Chloride 107, Carbon Dioxide 22, Anion Gap 15.0, BUN 31 H D, Creatinine 1.70 H, Estimated Creat Clear 43, Estimated GFR 40 L, Est GFR ( Amer) 48 L D, Glucose 277 H, Calcium 8.4 02/08/21 12:05: POC Glucose 294 H 02/09/21 05:17: POC Glucose 294 H 02/09/21 06:47: WBC 7.2 D, RBC 3.07 L, Hgb 9.8 L, Hct 31.3 L, MCV 101.9 H, MCH 31.9 H, MCHC 31.3 L, RDW 15.8, Plt Count 161, MPV 8.5, Neut % (Auto) 84.2 H, Lymph % (Auto) 10.4, [place] % (Auto) 4.4, Eos % (Auto) 0.5, Baso % (Auto) 0.5, Neut # (Auto) 6.1, Lymph # (Auto) 0.8, [place] # (Auto) 0.3, Eos # (Auto) 0.0, Baso # (Auto) 0.0 02/09/21 06:47: Sodium 136, Potassium 4.7, Chloride 105, Carbon Dioxide 21 L, Anion Gap 14.7, BUN 24 H, Creatinine 1.30 H D, Estimated Creat Clear 59, Estimated GFR 54 L, Est GFR ( Amer) 65 D, Glucose 252 H, Calcium 8.1 L I & O for Last 24 hours: Intake & Output 02/06/21 02/07/21 02/08/21 02/09/21 23:59 23:59 23:59 23:59 Intake Total 1350 / 1350 1080 / 1080 3906 / 3906 Output Total 850 / 1650 1700 / 1700 Balance 500 / -300 -620 / -620 3906 / 3906 Weight 85.445 kg 83 kg 80.286 kg 83.779 kg Assessment and Plan (1) Acute hyperkalemia Status: Acute Category: Medical Code(s): E87.5 - Hyperkalemia (2) Acute renal failure Status: Acute Qualifiers: Acute renal failure type: unspecified Qualified Code(s): N17.9 - Acute kidney failure, unspecified Category: Medical Code(s): N17.9 - Acute kidney failure, unspecified (3) Nail avulsion of toe Status: Acute Qualifiers: Encounter type: subsequent encounter Qualified Code(s): S91.209D - Unspecified open wound of unspecified toe(s) with damage to nail, subsequent encounter Category: Medical Code(s): S91.209A - Unspecified open wound of unspecified toe(s) with damage to nail, initial encounter (4) Type 2 diabetes mellitus with diabetic neuropathy, with long-term current use of insulin Status: Acute Category: Medical Code(s): E11.40 - Type 2 diabetes mellitus with diabetic neuropathy, unspecified; Z79.4 - [facility] (current) use of insulin (5) Uncontrolled diabetes mellitus Status: Acute Qualifiers: Diabetes mellitus type: type 2 Glycemic state: with hyperglycemia Qualified Code(s): E11.65 - Type 2 diabetes mellitus with hyperglycemia Category: Medical Code(s): E11.65 - Type 2 diabetes mellitus with hyperglycemia (6) Nephropathy Status: Chronic Category: Medical Code(s): N28.9 - Disorder of kidney and ureter, unspecified (7) Parkinson disease Status: Chronic Category: Medical Code(s): G20 - Parkinson's disease (8) Pain of left heel Status: Acute Category: Medical Code(s): M79.672 - Pain in left foot (9) Encounter for wound care Start date: 02/07/21 Status: Acute Category: Medical Code(s): Z51.89 - Encounter for other specified aftercare (10) Nail dystrophy Start date: 02/07/21 Status: Acute Category: Medical Code(s): L60.3 - Nail dystrophy (11) Onychomycosis Start date: 02/07/21 Status: Acute Category: Medical Code(s): B35.1 - Tinea unguium (12) Decreased pedal pulses Start date: 02/07/21 Status: Acute Category: Medical Code(s): R09.89 - Other specified symptoms and signs involving the circulatory and respiratory systems (13) Diabetic
--- NOTE | 2021-02-09 09:58 | HMH.ACPN2 ---
Internal Medicine - PN: Subj *Date: 02/09/21 *Time: 20:14 Interval history: 75-year-old male patient resting in bed quietly he denies any abdominal pain or tenderness at present encouraged him out of bed for all meals and to consume more at each meal. Exam Vital signs and Labs for Last 24 Hours: Temp Pulse Resp BP Pulse Ox 98.2 F 73 16 123/66 97 02/09/21 08:00 02/09/21 08:00 02/09/21 08:00 02/09/21 08:00 02/09/21 08:00 Laboratory Results - last 24 hr 02/08/21 10:40: WBC 5.6 D, RBC 3.05 L, Hgb 9.9 L, Hct 31.4 L, MCV 102.8 H, MCH 32.3 H, MCHC 31.5 L, RDW 15.9, Plt Count 200, MPV 8.6, Neut % (Auto) 77.3, Lymph % (Auto) 14.4, [place] % (Auto) 5.0, Eos % (Auto) 2.5, Baso % (Auto) 0.7, Neut # (Auto) 4.4, Lymph # (Auto) 0.8, [place] # (Auto) 0.3, Eos # (Auto) 0.1, Baso # (Auto) 0.0 02/08/21 10:40: Sodium 139, Potassium 5.0, Chloride 107, Carbon Dioxide 22, Anion Gap 15.0, BUN 31 H D, Creatinine 1.70 H, Estimated Creat Clear 43, Estimated GFR 40 L, Est GFR ( Amer) 48 L D, Glucose 277 H, Calcium 8.4 02/08/21 12:05: POC Glucose 294 H 02/09/21 05:17: POC Glucose 294 H 02/09/21 06:47: WBC 7.2 D, RBC 3.07 L, Hgb 9.8 L, Hct 31.3 L, MCV 101.9 H, MCH 31.9 H, MCHC 31.3 L, RDW 15.8, Plt Count 161, MPV 8.5, Neut % (Auto) 84.2 H, Lymph % (Auto) 10.4, [place] % (Auto) 4.4, Eos % (Auto) 0.5, Baso % (Auto) 0.5, Neut # (Auto) 6.1, Lymph # (Auto) 0.8, [place] # (Auto) 0.3, Eos # (Auto) 0.0, Baso # (Auto) 0.0 02/09/21 06:47: Sodium 136, Potassium 4.7, Chloride 105, Carbon Dioxide 21 L, Anion Gap 14.7, BUN 24 H, Creatinine 1.30 H D, Estimated Creat Clear 59, Estimated GFR 54 L, Est GFR ( Amer) 65 D, Glucose 252 H, Calcium 8.1 L I & O for Last 24 hours: Intake & Output 02/06/21 02/07/21 02/08/21 02/09/21 23:59 23:59 23:59 23:59 Intake Total 1350 / 1350 1080 / 1080 3906 / 3906 Output Total 850 / 1650 1700 / 1700 Balance 500 / -300 -620 / -620 3906 / 3906 Weight 188 lb 6 oz 182 lb 15.739 oz 177 lb 184 lb 11.2 oz - Constitutional no acute distress, chronically ill appearing - *Routine HEENT Exam Head: Present: normocephalic Eye: Present: EOMI ENT: Present: mucous membranes moist - *Routine Neck Exam Present: trachea midline. Absent: tracheal deviation - *Routine Respiratory Exam Present: CTA bilaterally. Absent: accessory muscle use - *Routine Cardiovascular Exam Present: RRR - *Routine Abdominal Exam Present: soft, normoactive bowel sounds. Absent: tenderness, firm - *Routine Extremities Exam Present: full ROM, pulses intact. Absent: cyanosis, clubbing - *Routine Skin Exam Present: dry, wounds. Absent: cyanosis, erythema Comments: Abrasions BLE L Heel - *Routine Neurological Exam Present: alert, oriented X3. Absent: motor deficit - Routine Psychiatric Exam Present: normal affect, normal thought process. Absent: auditory hallucinations Assessment and Plan (1) Acute hyperkalemia Status: Acute Category: Medical Code(s): E87.5 - Hyperkalemia (2) Acute renal failure Status: Acute Qualifiers: Qualified Code(s): N17.9 - Acute kidney failure, unspecified Category: Medical Code(s): N17.9 - Acute kidney failure, unspecified (3) Nail avulsion of toe Status: Acute Qualifiers: Qualified Code(s): S91.209D - Unspecified open wound of unspecified toe(s) with damage to nail, subsequent encounter Category: Medical Code(s): S91.209A - Unspecified open wound of unspecified toe(s) with damage to nail, initial encounter (4) Type 2 diabetes mellitus with diabetic neuropathy, with long-term current use of insulin Status: Acute Category: Medical Code(s): E11.40 - Type 2 diabetes mellitus with diabetic neuropathy, unspecified; Z79.4 - [employer] (current) use of insulin (5) Uncontrolled diabetes mellitus Status: Acute Qualifiers: Qualified Code(s): E11.65 - Type 2 diabetes mellitus with hyperglycemia Category: Medical Code(s): E11.65 - Type 2 diabetes mellit
--- NOTE | 2021-02-09 10:39 | SW/DCPLANNER ---
Addendum entered by Guerline Angel 02/11/21 12:43: Brent crowley/ [facility] has stated that services will resume for this patient. Addendum entered by Guerline Angel 02/11/21 10:12: Patient information/order has been faxed to [email or web address]: I will follow up with Brent Mirza once information is reviewed. This patient will discharge home today. Original Note: This patient is currently established with [facility] per Brent Mirza. I will continue to follow up with MD tee and Brent until patient is medically stable for discharge. Discharge date is unknown at this time.
[2021-02-09 11:12] LABS: Alanine Aminotransferase 24 U/L (12-78); Albumin Level 3.4 g/dl (3.5-5.0); Alkaline Phosphatase 336 U/L (38-126); Amylase 88 U/L (30-110); Aspartate Amino Transferase 116 U/L (17-59); Bilirubin, Conjugated 0.6 mg/dL (0.0-0.3); Bilirubin,Direct 2.2 mg/dl (0.0-0.4); Bilirubin,Indirect 0.5 mg/dL (0.0-0.9); Bilirubin,Total 2.7 mg/dl (0.2-1.3); Bilirubin,Unconjugated 0.5 mg/dL (0.0-1.1); Lipase 526 U/L (23-300); Total Protein,Serum 6.9 g/dl (6.3-8.2)
--- NOTE | 2021-02-09 11:32 | HMH.GSCON ---
*Admission Date: 02/07/21 *Reason for consult:: Gallstones *History of present illness: This is a 75-year-old gentleman seen in consultation from the primary service for evaluation regarding possible gallstones. He was recently admitted to the primary service after presenting to emergency department status post fall. Evaluation included a CT scan, as well as ultrasound of the right upper quadrant. Per ultrasound he had a possible 5 mm stone versus polyp. His common bile duct was 7 mm. Note intrahepatic biliary dilatation noted. A CT scan from November showed changes consistent with possible chronic calculus cholecystitis. Currently he is without complaint with regard to abdominal pain. He does have occasional nausea. No jaundice. No fevers. Forwarded from podiatry evaluation: The patient is a 75 year-old male well-known to the podiatry team who was admitted 02/05/21 with history of hypertension and dementia presenting to the emergency department after a fall. Patient was clinically stable on arrival. Patient avulsed his great toe on the left and has superficial abrasion on his carter from falling. Patient has personal history of diabetic neuropathy with numbness and tingling. PCP team consulted podiatry for evaluation of left hallux nail avulsion and left heel diabetic wound. Patient currently lying in bed, alert and oriented. No acute distress noted. Bilateral lower extremities with several abrasions, b/l foot dry. 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 Left foot diabetic wound noted to heel. Left hallux nail avulsion. Patient complaining of pain to left heel. B/l feet dorsalis pedis and posterior tibial pulses weakly palpable. We will obtain DREW and treat accordingly. Review of Systems - Constitutional Denies chills, Denies fever(s) - *Gastrointestinal Denies abdominal pain - *Neurologic Reports abnormal walking, Reports frequent falls, Reports lack of coordination, Reports memory loss, Reports numbness, Reports tingling/numbness/burning sensations, Reports weakness, Denies abnormal hearing, Denies dizziness, Denies headache(s) [facility] History Medical History: Reports:: Anxiety, Depression, Diabetes Mellitus Type 2, Gastroesophageal Reflux Disease(GERD), Hyperlipidemia, Hypertension Denies:: Cancer, Diabetes Mellitus Type 1, Internal Pacemaker, MRSA *Have you ever received a pneumonia vaccine?: Yes *Have you received a flu vaccine this season?: Yes Other Medical History: Reports: Arthritis, Hypothyroidism, Thyroid Disease, Other Laterality Cases: Right: Arthroscopy Shoulder, Bilateral: Carpal Tunnel Release, Cataract Other Surgeries: Yes: No Previous Surgery, Colonoscopy, EGD, Other. 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) Fractures: No - *Social History Last grade of school completed: GED Smoking Status: Former smoker Tobacco Type: cigarettes, smokeless tobacco # Packs/Day (cigarettes): 3 #Yrs smoked (if former smoker): 13 Smoking End Date: 1982 Alcohol Intake: never Substance Use Type: denies use *Occupational Status:: retired Housing: house Household Members: family *Travel in the last 8 weeks: None - Psychiatric History Pschychiatric History:: Reports:: Anxiety, Depression Family Hx:: Cancer, Hypertension Meds Home Medications Medication Instructions Recorded Confirmed Type Atorvastatin Calcium [Lipitor 40mg 40 mg PO HS 11/19/20 02/06/21 History Tab] Carbidopa/Levodopa [Sinemet 25-100 1 each PO QID 11/19/20 02/06/21 History mg Tablet] Insulin Glargine,Hum.rec.anlog 60 units SQ DAILY 11/19/20 02/06/21 History [Lantus Solostar U-100 Insulin] Levothyroxine Sodium [Synthroid 25 mcg PO DAILY 11/19/20 02/06/21 History 25mcg (0.025mg) tablet] PARoxetine HCL [Paroxetine HCl] 40 mg PO DAILY 11/19/20 02/05/21 History Quetiapine Fumarate 100 mg PO HS 11/19/20 02/06/21 History Spironolactone [Spironolactone 25 mg PO DAILY 11/19/20 02/06/21 History 25mg Tablet]
[2021-02-09 12:40] LABS: POC Glucose,Bedside 223 (70-110)
--- NOTE | 2021-02-09 13:13 | PC.NURSE ---
[facility] and stated pt could eat/drink per orders until midnight then be NPO.
[2021-02-09 16:00] VITALS: BP 118/64; PULSE 56; RESP 18; TEMP 36.9; O2SAT 93
--- NOTE | 2021-02-09 18:49 | HMH.ORTHPN ---
Subjective Date: 02/09/21 Time: 14:00 Interval history: Patient lying comfortably in bed. Alert and oriented x3. No acute distress noted. Left heel diabetic wound dressing removed. The site is dry, with surrounding erythema, no drainage noted when compressed. The wound base remains 50% brown tissue and 50% granular. Patient voiced pain with palpation. Left hallux nail avulsion site with a band-aid in place dry and intact. Patient overall lower extremities skin is dry with several abrasion noted. There is also, an old and healed amputation to right foot 2nd and 3rd toe. We will perform wound dressing change as indicated previously. PN: Obj Ex Vital signs: Temp Pulse Resp BP Pulse Ox 98.4 F 56 L 18 118/64 93 L 02/09/21 16:00 02/09/21 16:00 02/09/21 16:00 02/09/21 16:00 02/09/21 16:00 - Constitutional no acute distress - Routine HEENT Exam Head: Present: normocephalic Eye: Present: EOMI, PERRL ENT: Present: mucous membranes moist - Routine Neck Exam Present: trachea midline - Routine Respiratory Exam Absent: accessory muscle use, respiratory distress - Routine Cardiovascular Exam Present: RRR - Routine Abdominal Exam Present: soft (deferred) - Routine Extremities Exam Present: pulses intact, normal capillary refill. Absent: calf tenderness - Detailed Lower Extremity Exam Foot/Toes: Left erythema (left heel), Left wound (heel), Left decreased ROM, Right amputation (2nd and 3rd toe), Bilateral nail abnormalities, Bilateral onychomycosis Leg image: 1 - Left heel wound with erythema improving. The wound base remains 50% granular and 50% brown tissue. No debridement performed today. The wound was cleansed with wound cleanser. dressed with betadine soak 4x4,kirlex, and jeovanny wrap. Left hallux band aid removed, site dry, no drainage cleaned site with betadine applied triple antibiotic and cover with band aid. - Routine Skin Exam Present: erythema, dry, wounds (left heel) - Routine Neurological Exam Present: alert, oriented X3, vision grossly intact, hearing grossly intact, normal speech - Routine Psychiatric Exam Present: normal affect, cooperative Progress Note: A&P (1) Acute hyperkalemia Status: Acute (2) Acute renal failure Status: Acute (3) Nail avulsion of toe Status: Acute (4) Type 2 diabetes mellitus with diabetic neuropathy, with long-term current use of insulin Status: Acute (5) Uncontrolled diabetes mellitus Status: Acute (6) Nephropathy Status: Chronic (7) Parkinson disease Status: Chronic (8) Pain of left heel Start date: 02/09/21 Status: Acute (9) Encounter for wound care Start date: 02/09/21 Status: Acute (10) Nail dystrophy Status: Acute (11) Onychomycosis Status: Acute (12) Decreased pedal pulses Status: Acute (13) Diabetic foot Status: Acute (14) Pressure ulcer of left heel, stage 2 Status: Acute (15) Diabetic ulcer of heel associated with diabetes mellitus due to underlying condition Status: Acute (16) Keratosis Status: Acute (17) Pressure ulcer of contiguous site of back, buttock and hip, stage 1 Status: Acute (18) Onychomycosis Start date: 02/09/21 Start time: 14:00 Status: Acute (19) Onychodystrophy Start date: 02/09/21 Start time: 14:00 Status: Acute (20) Encounter for wound care Start date: 02/09/21 Start time: 14:00 Status: Acute (21) Avulsion of nail Start date: 02/09/21 Start time: 14:00 Status: Acute (22) Keratosis Start date: 02/09/21 Start time: 14:00 Status: Acute (23) Diabetic foot Start date: 02/09/21 Start time: 14:00 Status: Acute (24) Pain of left heel Start date: 02/09/21 Start time: 14:00 Status: Acute Assessment and Plan for All Diagnoses:: Laboratory Tests 02/09/21 02/09/21 06:47 06:47 WBC 7.2 D Hgb 9.
[2021-02-09 20:00] VITALS: BP 127/64; PULSE 57; RESP 18; TEMP 37.1; O2SAT 98
[2021-02-09 20:28] LABS: POC Glucose,Bedside 274 (70-110)
[2021-02-10 04:00] VITALS: BP 143/65; PULSE 59; RESP 18; TEMP 36.7; O2SAT 98
[2021-02-10 05:00] VITALS: BMI 35.9
[2021-02-10 05:53] LABS: POC Glucose,Bedside 198 (70-110)
--- NOTE | 2021-02-10 06:39 | HMH.GSPN ---
Subjective Narrative: Resting Progress Note: A&P (1) Acute hyperkalemia Status: Acute (2) Acute renal failure Status: Acute (3) Nail avulsion of toe Status: Acute (4) Type 2 diabetes mellitus with diabetic neuropathy, with long-term current use of insulin Status: Acute (5) Uncontrolled diabetes mellitus Status: Acute (6) Nephropathy Status: Chronic (7) Parkinson disease Status: Chronic (8) Pain of left heel Status: Acute (9) Encounter for wound care Status: Acute (10) Nail dystrophy Status: Acute (11) Onychomycosis Status: Acute (12) Decreased pedal pulses Status: Acute (13) Diabetic foot Status: Acute (14) Pressure ulcer of left heel, stage 2 Status: Acute (15) Diabetic ulcer of heel associated with diabetes mellitus due to underlying condition Status: Acute (16) Keratosis Status: Acute (17) Pressure ulcer of contiguous site of back, buttock and hip, stage 1 Status: Acute (18) Onychomycosis Status: Acute (19) Onychodystrophy Status: Acute (20) Encounter for wound care Status: Acute (21) Avulsion of nail Status: Acute (22) Keratosis Status: Acute (23) Diabetic foot Status: Acute (24) Pain of left heel Status: Acute (25) Gallbladder polyp Status: Acute (26) Gallstones Status: Acute Assessment and plan: Continue to consider cholecystectomy; however, gastroenterology evaluation warranted (27) Hyperbilirubinemia Status: Acute Assessment and plan: Await results of MRCP (28) Hyperkalemia Status: Acute Exam Vital signs and Labs for Last 24 Hours: Temp Pulse Resp BP Pulse Ox 98.1 F 59 L 18 143/65 H 98 02/10/21 04:00 02/10/21 04:00 02/10/21 04:00 02/10/21 04:00 02/10/21 04:00 Laboratory Results - last 24 hr 02/09/21 06:47: WBC 7.2 D, RBC 3.07 L, Hgb 9.8 L, Hct 31.3 L, MCV 101.9 H, MCH 31.9 H, MCHC 31.3 L, RDW 15.8, Plt Count 161, MPV 8.5, Neut % (Auto) 84.2 H, Lymph % (Auto) 10.4, [place] % (Auto) 4.4, Eos % (Auto) 0.5, Baso % (Auto) 0.5, Neut # (Auto) 6.1, Lymph # (Auto) 0.8, [place] # (Auto) 0.3, Eos # (Auto) 0.0, Baso # (Auto) 0.0 02/09/21 06:47: Sodium 136, Potassium 4.7, Chloride 105, Carbon Dioxide 21 L, Anion Gap 14.7, BUN 24 H, Creatinine 1.30 H D, Estimated Creat Clear 59, Estimated GFR 54 L, Est GFR ( Amer) 65 D, Glucose 252 H, Calcium 8.1 L 02/09/21 06:47: Total Bilirubin 2.7 H, Direct Bilirubin 2.2 H, Conjugated Bilirubin 0.6 H, Indirect Bilirubin 0.5, Unconjugated Bilirubin 0.5, AST 116 H D, ALT 24 D, Alkaline Phosphatase 336 H, Total Protein 6.9, Albumin 3.4 L, Amylase 88, Lipase 526 H 02/09/21 12:32: POC Glucose 223 H 02/09/21 20:16: POC Glucose 274 H 02/10/21 05:44: POC Glucose 198 H I & O for Last 24 hours: Intake & Output 02/07/21 02/08/21 02/09/21 02/10/21 11:59 11:59 11:59 11:59 Intake Total 1440 / 1440 2993 / 2993 1273 / 1273 240 / 240 Output Total 1700 / 1700 Balance -260 / -260 2993 / 2993 1273 / 1273 240 / 240 Weight 182 lb 15.739 oz 177 lb 184 lb 11.2 oz 185 lb 10.067 oz - Constitutional no acute distress - *Routine Respiratory Exam Absent: respiratory distress - *Routine Cardiovascular Exam Absent: tachycardia
[2021-02-10 06:56] LABS: Basophils # 0.1 K/mm3 (0-0.2); Basophils % 0.8 % (0.1-2.0); Eosinophils # 0.1 K/mm3 (0.0-0.4); Eosinophils % 2.2 % (0.1-12.0); Hematocrit 30.3 % (42.0-52.0); Hemoglobin 9.5 g/dL (14.1-18.0); Lymphocytes # 1.8 K/mm3 (0.7-4.5); Lymphocytes % 27.3 % (10-50); Mean Corpuscular HGB Conc 31.4 g/dL (31.8-35.4); Mean Corpuscular Hemoglobin 32.3 pg (27.0-31.2); Mean Corpuscular Volume 102.8 fl (80-94); Mean Platelet Volume 8.6 fl (7.4-10.4); Monocytes # 0.4 K/mm3 (0.1-1.0); Monocytes % 6.2 % (1.7-9.3); Neutrophils # 4.2 K/mm3 (1.8-7.8); Neutrophils % 63.5 % (37.0-80.0); Platelet Count 160 K/mm3 (142-424); Red Blood Count 2.95 M/mm3 (4.60-6.20); Red Cell Distribution Width 15.8 % (11.5-17.5); White Blood Count 6.5 K/mm3 (4.8-10.8)
[2021-02-10 06:57] LABS: Anion Gap 11.4 mEq/L (5-15); Blood Urea Nitrogen 20 mg/dl (9-20); Calcium 8.1 mg/dl (8.4-10.2); Carbon Dioxide 26 mmol/L (22.0-30.0); Chloride 104 mmol/L (98-107); Creatinine Clearance Estimated 51 mL/min (50-200); Estimated Glomerular Filt Rate 46 ml/min (>60); GFR (African American) 55 ML/MIN (>60); Glucose 192 mg/dl (74-100); Potassium 4.4 mmoL/L (3.5-5.1); Sodium 137 mmol/L (136-145)
[2021-02-10 06:58] LABS: Alanine Aminotransferase 23 U/L (12-78); Albumin Level 3.5 g/dl (3.5-5.0); Alkaline Phosphatase 327 U/L (38-126); Aspartate Amino Transferase 123 U/L (17-59); Bilirubin,Direct 1.5 mg/dl (0.0-0.4); Bilirubin,Indirect 0.5 mg/dL (0.0-0.9); Bilirubin,Unconjugated 0.4 mg/dL (0.0-1.1); Total Protein,Serum 7.2 g/dl (6.3-8.2)
[2021-02-10 08:00] VITALS: BP 175/76; PULSE 60; RESP 19; TEMP 36.7; O2SAT 98
--- NOTE | 2021-02-10 10:55 | MR_ITS ---
FINAL REPORT CLINICAL HISTORY: GALLSTONES, ELEVATED BILIRUBIN AND LIPASE FINDINGS: Multiplanar MR imaging of the abdomen was performed using the MRCP protocol. 3-D images were also obtained and reviewed. The gallbladder is distended. There are no gallstones. There is no intrahepatic biliary ductal dilatation. There is mild narrowing of the distal common duct seen on image 3 of series 12. There is no definite pancreatic mass. The pancreatic duct is normal. Review of the remainder of the abdomen reveals benign-appearing cysts in both kidneys measuring up to 1.5 cm on the right. IMPRESSION: Distended gallbladder without gallstones. Mild narrowing of the distal common duct of uncertain significance. No definite pancreatic mass is seen if there is clinical concern for pancreatic lesion a pre and post contrast thin section MRI may be of value. Reviewed, Interpreted and Dictated by Danny Shannon MD Transcribed by Max Modi Authenticated by Danny Shannon MD on 02/10/2021 12:59:[address] [facility]
[2021-02-10 12:14] LABS: POC Glucose,Bedside 247 (70-110)
--- NOTE | 2021-02-10 14:22 | HMH.ACPN2 ---
Internal Medicine - PN: Subj *Date: 02/10/21 *Time: 08:30 Interval history: pt sitting up in chair, states doing well. Exam Vital signs and Labs for Last 24 Hours: Temp Pulse Resp BP Pulse Ox 98.1 F 60 19 175/76 H 98 02/10/21 08:00 02/10/21 08:00 02/10/21 08:00 02/10/21 08:00 02/10/21 08:00 Laboratory Results - last 24 hr 02/09/21 20:16: POC Glucose 274 H 02/10/21 05:44: POC Glucose 198 H 02/10/21 05:51: WBC 6.5, RBC 2.95 L, Hgb 9.5 L, Hct 30.3 L, MCV 102.8 H, MCH 32.3 H, MCHC 31.4 L, RDW 15.8, Plt Count 160, MPV 8.6, Neut % (Auto) 63.5, Lymph % (Auto) 27.3, [place] % (Auto) 6.2, Eos % (Auto) 2.2, Baso % (Auto) 0.8, Neut # (Auto) 4.2, Lymph # (Auto) 1.8, [place] # (Auto) 0.4, Eos # (Auto) 0.1, Baso # (Auto) 0.1 02/10/21 05:51: Sodium 137, Potassium 4.4, Chloride 104, Carbon Dioxide 26, Anion Gap 11.4, BUN 20, Creatinine 1.50 H, Estimated Creat Clear 51, Estimated GFR 46 L, Est GFR ( Amer) 55 L, Glucose 192 H D, Calcium 8.1 L 02/10/21 05:51: Total Bilirubin 2.0 H, Direct Bilirubin 1.5 H, Conjugated Bilirubin 0.0, Indirect Bilirubin 0.5, Unconjugated Bilirubin 0.4, AST 123 H, ALT 23, Alkaline Phosphatase 327 H, Total Protein 7.2, Albumin 3.5 02/10/21 12:01: POC Glucose 247 H I & O for Last 24 hours: Intake & Output 02/08/21 02/09/21 02/10/21 02/11/21 11:59 11:59 11:59 11:59 Intake Total 2993 / 2993 1273 / 1273 240 / 240 Output Total 0 / 0 Balance 2993 / 2993 1273 / 1273 240 / 240 Weight 177 lb 184 lb 11.2 oz 185 lb 10.067 oz - Constitutional no acute distress - *Routine HEENT Exam Head: Present: normocephalic Eye: Present: PERRL ENT: Present: mucous membranes moist - *Routine Neck Exam Present: supple. Absent: lymphadenopathy - *Routine Respiratory Exam Present: CTA bilaterally - *Routine Cardiovascular Exam Present: RRR - *Routine Abdominal Exam Present: soft, normoactive bowel sounds. Absent: tenderness - *Routine Extremities Exam Present: amputation. Absent: cyanosis, clubbing, edema - *Routine Skin Exam Present: warm, wounds. Absent: rash Comments: dressing in place c/d/i - *Routine Neurological Exam Present: alert, oriented X3 Assessment and Plan (1) Acute hyperkalemia Status: Acute Category: Medical Code(s): E87.5 - Hyperkalemia (2) Acute renal failure Status: Acute Qualifiers: Acute renal failure type: unspecified Qualified Code(s): N17.9 - Acute kidney failure, unspecified Category: Medical Code(s): N17.9 - Acute kidney failure, unspecified (3) Nail avulsion of toe Start date: 02/09/21 Status: Acute Qualifiers: Encounter type: subsequent encounter Qualified Code(s): S91.209D - Unspecified open wound of unspecified toe(s) with damage to nail, subsequent encounter Category: Medical Code(s): S91.209A - Unspecified open wound of unspecified toe(s) with damage to nail, initial encounter (4) Type 2 diabetes mellitus with diabetic neuropathy, with long-term current use of insulin Status: Acute Category: Medical Code(s): E11.40 - Type 2 diabetes mellitus with diabetic neuropathy, unspecified; Z79.4 - MCFP (current) use of insulin (5) Uncontrolled diabetes mellitus Status: Acute Qualifiers: Diabetes mellitus type: type 2 Glycemic state: with hyperglycemia Qualified Code(s): E11.65 - Type 2 diabetes mellitus with hyperglycemia Category: Medical Code(s): E11.65 - Type 2 diabetes mellitus with hyperglycemia (6) Nephropathy Status: Chronic Category: Medical Code(s): N28.9 - Disorder of kidney and ureter, unspecified (7) Parkinson disease Status: Chronic Category: Medical Code(s): G20 - Parkinson's disease (8) Pain of left heel Start date: 02/09/21 Status: Acute Category: Medical Code(s): M79.672 - Pain in left foot (9) Encounter for wound care Start date: 02/09/21 Status: Acute Category: Medical Code(s): Z51.89 - Encounter for other specified aftercare
[2021-02-10 16:00] VITALS: BP 153/76; PULSE 60; RESP 18; TEMP 36.6; O2SAT 100
--- NOTE | 2021-02-10 16:06 | PC.NURSE ---
Panfilo Calderón,GLENYS gave this RN order for clear liquid diet on pt from Dr. Holder's office. VSS. Mx continues. Pt up to chiar.
[2021-02-10 16:49] LABS: POC Glucose,Bedside 234 (70-110)
[2021-02-10 20:00] VITALS: BP 157/72; PULSE 63; RESP 16; TEMP 36.7; O2SAT 96
[2021-02-11 04:00] VITALS: BP 137/65; PULSE 56; RESP 16; TEMP 36.6; O2SAT 98
[2021-02-11 04:54] VITALS: BMI 35.3
[2021-02-11 05:41] LABS: Basophils # 0.1 K/mm3 (0-0.2); Basophils % 0.9 % (0.1-2.0); Eosinophils # 0.2 K/mm3 (0.0-0.4); Hematocrit 29.8 % (42.0-52.0); Hemoglobin 9.5 g/dL (14.1-18.0); Lymphocytes # 1.5 K/mm3 (0.7-4.5); Lymphocytes % 22.6 % (10-50); Mean Corpuscular HGB Conc 31.7 g/dL (31.8-35.4); Mean Corpuscular Volume 100.9 fl (80-94); Mean Platelet Volume 8.3 fl (7.4-10.4); Monocytes # 0.4 K/mm3 (0.1-1.0); Monocytes % 6.4 % (1.7-9.3); Neutrophils # 4.5 K/mm3 (1.8-7.8); Neutrophils % 67.1 % (37.0-80.0); Platelet Count 155 K/mm3 (142-424); Red Blood Count 2.96 M/mm3 (4.60-6.20); Red Cell Distribution Width 15.7 % (11.5-17.5); White Blood Count 6.7 K/mm3 (4.8-10.8)
[2021-02-11 05:49] LABS: Anion Gap 13.8 mEq/L (5-15); Blood Urea Nitrogen 18 mg/dl (9-20); Calcium 7.8 mg/dl (8.4-10.2); Carbon Dioxide 23 mmol/L (22.0-30.0); Chloride 105 mmol/L (98-107); Creatinine Clearance Estimated 54 mL/min (50-200); Estimated Glomerular Filt Rate 50 ml/min (>60); GFR (African American) 60 ML/MIN (>60); Glucose 202 mg/dl (74-100); Potassium 3.8 mmoL/L (3.5-5.1); Sodium 138 mmol/L (136-145)
--- NOTE | 2021-02-11 06:30 | HMH.GSPN ---
Subjective Patient reports: no new complaints Progress Note: A&P (1) Acute hyperkalemia Status: Acute (2) Acute renal failure Status: Acute (3) Nail avulsion of toe Status: Acute (4) Type 2 diabetes mellitus with diabetic neuropathy, with long-term current use of insulin Status: Acute (5) Uncontrolled diabetes mellitus Status: Acute (6) Nephropathy Status: Chronic (7) Parkinson disease Status: Chronic (8) Pain of left heel Status: Acute (9) Encounter for wound care Status: Acute (10) Nail dystrophy Status: Acute (11) Onychomycosis Status: Acute (12) Decreased pedal pulses Status: Acute (13) Diabetic foot Status: Acute (14) Pressure ulcer of left heel, stage 2 Status: Acute (15) Diabetic ulcer of heel associated with diabetes mellitus due to underlying condition Status: Acute (16) Keratosis Status: Acute (17) Pressure ulcer of contiguous site of back, buttock and hip, stage 1 Status: Acute (18) Onychomycosis Status: Acute (19) Onychodystrophy Status: Acute (20) Encounter for wound care Status: Acute (21) Avulsion of nail Status: Acute (22) Keratosis Status: Acute (23) Diabetic foot Status: Acute (24) Pain of left heel Status: Acute (25) Gallbladder polyp Status: Acute (26) Gallstones Status: Acute Assessment and plan: No gallstones noted for MRCP yesterday (27) Hyperbilirubinemia Status: Acute (28) Hyperkalemia Status: Acute Assessment and Plan for All Diagnoses:: The patient does have some gallbladder distention and some mild distal common bile duct narrowing; however, no mass or stricture/stone noted per MRCP. Although he may ultimately benefit from cholecystectomy, there is no need for urgent intervention. Discussion with regard to surgery will continue as an outpatient. Gastroenterology consultation for evaluation with regard to hyperbilirubinemia warranted. Exam Vital signs and Labs for Last 24 Hours: Temp Pulse Resp BP Pulse Ox 98 F 56 L 16 137/65 98 02/11/21 04:00 02/11/21 04:00 02/11/21 04:00 02/11/21 04:00 02/11/21 04:00 Laboratory Results - last 24 hr 02/10/21 05:51: WBC 6.5, RBC 2.95 L, Hgb 9.5 L, Hct 30.3 L, MCV 102.8 H, MCH 32.3 H, MCHC 31.4 L, RDW 15.8, Plt Count 160, MPV 8.6, Neut % (Auto) 63.5, Lymph % (Auto) 27.3, [place] % (Auto) 6.2, Eos % (Auto) 2.2, Baso % (Auto) 0.8, Neut # (Auto) 4.2, Lymph # (Auto) 1.8, [place] # (Auto) 0.4, Eos # (Auto) 0.1, Baso # (Auto) 0.1 02/10/21 05:51: Sodium 137, Potassium 4.4, Chloride 104, Carbon Dioxide 26, Anion Gap 11.4, BUN 20, Creatinine 1.50 H, Estimated Creat Clear 51, Estimated GFR 46 L, Est GFR ([facility] Amer) 55 L, Glucose 192 H D, Calcium 8.1 L 02/10/21 05:51: Total Bilirubin 2.0 H, Direct Bilirubin 1.5 H, Conjugated Bilirubin 0.0, Indirect Bilirubin 0.5, Unconjugated Bilirubin 0.4, AST 123 H, ALT 23, Alkaline Phosphatase 327 H, Total Protein 7.2, Albumin 3.5 02/10/21 12:01: POC Glucose 247 H 02/10/21 16:28: POC Glucose 234 H 02/11/21 05:30: WBC 6.7, RBC 2.96 L, Hgb 9.5 L, Hct 29.8 L, MCV 100.9 H, MCH 32.0 H, MCHC 31.7 L, RDW 15.7, Plt Count 155, MPV 8.3, Neut % (Auto) 67.1, Lymph % (Auto) 22.6, [place] % (Auto) 6.4, Eos % (Auto) 3.0, Baso % (Auto) 0.9, Neut # (Auto) 4.5, Lymph # (Auto) 1.5, [place] # (Auto) 0.4, Eos # (Auto) 0.2, Baso # (Auto) 0.1 02/11/21 05:30: Sodium 138, Potassium 3.8, Chloride 105, Carbon Dioxide 23, Anion Gap 13.8, BUN 18, Creatinine 1.40 H, Estimated Creat Clear 54, Estimated GFR 50 L, Est GFR ( Amer) 60, Glucose 202 H, Calcium 7.8 L I & O for Last 24 hours: Intake & Output 02/08/21 02/09/21 02/10/21 02/11/21 11:59 11:59 11:59 11:59 Intake Total 2993 / 2993 1273 / 1273 240 / 240 480 / 480 Output Total 0 / 0 Balance 2993 / 2993 1273 / 1273 240 / 240 480 / 480 Weight 177 lb 184 lb 11.2 oz 185 lb 10.067 oz 182 lb 4.8 oz Microbiology Reports for the Last 24 Tommy
[2021-02-11 07:57] VITALS: BP 144/77; PULSE 60; RESP 16; TEMP 37; O2SAT 98
[2021-02-11 11:57] LABS: POC Glucose,Bedside 350 (70-110)
--- NOTE | 2021-02-11 13:15 | HMH.DCSUM ---
General - General Admission date:: 02/05/21 Discharge date: 02/11/21 HPI HPI: In summary this is a 75-year-old male with history of hypertension and dementia presenting to the emergency department after a fall. Patient clinically stable on arrival. Vital signs within normal limits. Blood pressure borderline hypotensive with systolic 95. Patient receiving IV fluids. Weakness is concerning for anemia, GI bleed, ACS, cardiac arrhythmia, glucose or electrolyte derangement. Will obtain CBC, CMP, chest x-ray, EKG, troponin profile, Hemoccult Laboratory results show stable anemia with hemoglobin 9.6. Not worse than baseline. Metabolic panel shows acute renal failure with creatinine at 3.1. Patient has had chronic renal insufficiency for the last few years, baseline creatinine around 1.7. Has been as high as 4.7. Potassium significantly elevated at 7.5. Slightly peaked T waves, but no other EKG changes. Patient given 1 g calcium gluconate. Given 10 units of IV insulin and D50. Also has leukocytosis of 16,000. Borderline hypotension. He has received 2 L IV fluids. Given 2 g IV Rocephin. Calcitonin came back elevated. Concern for sepsis with an intra-abdominal source. Antibiotics broadened to include Zosyn. Patient given additional 700 cc IV fluids to complete 30 cc/kg IV fluid bolus. Tissue perfusion assessed. Noncontrast head CT shows no intracranial bleed or skull fracture. X-rays reassuring. Patient be admitted for further management and treatment of generalized weakness, hyperkalemia, renal failure. Case discussed with Dr. Holder this per ER physician Patient has been experiencing several falls. On this occasion he fell between the bed a a piece of furniture and was unable to extricate himself. Prior to this he fell in the bathroom. He was seen recently in the office, and insulin regimen clarified. Denies hypoglycemia. Known renal insufficiency with propensity for hyperkalemia. Mild dementia, last office visit was with daughter. Feeling much better since admission, is at baseline mentation and w/o complaints of chest pain or dyspnea. He avulsed his great toe on the left and has superficial abrasions on his left carter from falling. He has seen podiatry for diabetic foot infections, and suffers from diabetic neuropathy with numbness/tingling. This no doubt contributes to his falling. Patient had covid earlier in the year and spent 1 week at [facility] in [place]. WBC/lipase/lft's elevated u/s imaging shows no abnormality in visualized liver or pancreas. CT abdom taken, no report available abdom is soft and w/o focality on exam now Hospital Course Hospital Course: Laboratory Tests 02/05/21 02/05/21 02/05/21 12:00 12:00 12:29 WBC 16.8 H RBC 3.05 L Hgb 9.6 L Hct 31.2 L MCV 102.4 H MCH 31.5 H MCHC 30.8 L RDW 15.7 Plt Count 201 MPV 8.4 Neut % (Auto) 91.4 H Lymph % (Auto) 3.9 L [place] % (Auto) 4.3 Eos % (Auto) 0.1 Baso % (Auto) 0.2 Neut # (Auto) 15.4 H Lymph # (Auto) 0.7 [place] # (Auto) 0.7 Eos # (Auto) 0.0 Baso # (Auto) 0.0 Total Counted 100 Neutrophils % (Manual) 62 Lymphocytes % (Manual) 29 Monocytes % (Manual) 9 Platelet Estimate Normal RBC Morphology Normal Sodium 133 L Potassium 7.5 H* Chloride 103 Carbon Dioxide 21 L Anion Gap 16.5 H BUN 61 H Creatinine 3.10 H Estimated Creat Clear 27 Estimated GFR 20 L Est GFR ( Amer) 24 L Glucose 207 H POC Glucose Lactate Calcium 8.6 Total Bilirubin 2.8 H Direct Bilirubin Conjugated Bilirubin Indirect Bilirubin Unconjugated Bilirubin AST 434 H* ALT 124 H Alkaline Phosphatase 403 H Troponin I < 0.01 Total Protein 6.8 Albumin 3.5 Globulin 3.3 H Albumin/Globulin Ratio 1.1 Lipase Amylase Procalcitonin Urine Color Urine Appearance Urine pH Ur Spe
--- NOTE | 2021-02-11 14:43 | PC.NURSE ---
education on dressing done with daughter, no questions. went over home meds and discharge papers and appointments with both.
== END 2021-02-11 14:45 | disposition home or self-care (01) | DRG 684 ==
LOC: ER 13:51 → 2ND 16:01
PROVIDERS: Nurse Practitioner Family; Surgery; Admitting Provider Family Medicine; Emergency Provider Emergency Medicine; PCP Family Medicine; Visit Provider Family Medicine
DX: N17.9 Acute kidney failure, unspecified (principal); E87.5 Hyperkalemia; Z20.822 Contact with and (suspected) exposure to COVID-19; N18.9 Chronic kidney disease, unspecified; E11.22 Type 2 diabetes mellitus with diabetic chronic kidney disease; Z79.4 Long term (current) use of insulin; R29.6 Repeated falls; I12.9 Hypertensive chronic kidney disease with stage 1 through stage 4 chronic kidney disease, or unspecified chronic kidney disease; D63.1 Anemia in chronic kidney disease; M19.90 Unspecified osteoarthritis, unspecified site; E03.9 Hypothyroidism, unspecified; Z87.891 Personal history of nicotine dependence; F32.A Depression, unspecified; F41.9 Anxiety disorder, unspecified
CPT/HCPCS: 36415; 70450; 71045; 73562; 73590; 73620; 74176; 74181; 76376; 76705; 80048; 80053; 80076; 81001; 82150; 82962; 83605; 83690; 84145; 84484; 85007; 85025; 86850; 87040; 87086; 90714; 93005; 93923; 96365; 96367; 96375; 97110; 97116; 97162; 97530; 99284; C9803; J0696; J2405; J2543; U0003; U0005

== ENCOUNTER 2021-02-26 19:55 | Inpatient (IN) | payer MEDICARE, OTHER, SELFPAY ==
[2021-02-26 19:44] VITALS: BP 84/48; PULSE 82; RESP 20; TEMP 38.6; O2SAT 99; BMI 29.8
[2021-02-26 20:49] VITALS: BP 85/45; PULSE 82; RESP 20; TEMP 38.3; O2SAT 99
--- NOTE | 2021-02-26 20:50 | HMH.EDFEV ---
ED Disposition Clinical Impression: Type 2 diabetes mellitus with diabetic neuropathy, with long-term current use of insulin, Parkinson disease, Decreased pedal pulses, Cellulitis of foot, Osteopenia determined by x-ray, Elevated erythrocyte sedimentation rate, Elevated LFTs, SIRS (systemic inflammatory response syndrome) Hypothyroidism Qualifiers: Hypothyroidism type: acquired Qualified Code(s): E03.9 - Hypothyroidism, unspecified Acute renal failure Qualifiers: Acute renal failure type: unspecified Qualified Code(s): N17.9 - Acute kidney failure, unspecified Anemia Qualifiers: Anemia type: unspecified type Qualified Code(s): D64.9 - Anemia, unspecified Disposition: Admitted As Inpatient Condition on Discharge: Fair Referrals: Venkat Holder MD [Primary Care Provider] - - Critical Care Critical Care Time: No Attestation: On 02/26/21, the high probability of a clinically significant, sudden or life threatening deterioration of the following system(s) required my full and direct attention, intervention and personal management. The time I documented below is in addition to time spent performing reported procedures but includes the following listed in this critical care notation. Medical Decision Making - Medical Records Medical records reviewed: Yes: I reviewed the patient's medical records. - Simone Inquiry Pt receiving controlled substance: No Vital Signs: 02/26/21 19:44 02/26/21 20:49 02/26/21 20:58 Temperature 101.5 F H 101.0 F H Temperature Source Rectal Oral Pulse Rate 82 Pulse Rate [Apical] 82 Respiratory Rate 20 20 Blood Pressure 85/45 L 101/49 L Blood Pressure [Right Arm] 84/48 L Blood Pressure Mean [Right Arm] 60 Blood Pressure Source Automatic Cuff Automatic Cuff Blood Pressure Source [Right Arm] Manual Cuff/ Auscultation Blood Pressure Position Sitting Sitting Blood Pressure Position [Right Arm] Sitting 02 Sat by Pulse Oximetry 99 99 Oxygen Delivery Method Room Air Room Air - Lab Data Lab results reviewed: Yes: I reviewed the patient's lab results. Lab Results 02/26/21 20:15: WBC 14.9 H, RBC 3.01 L, Hgb 9.8 L, Hct 31.1 L, MCV 103.2 H, MCH 32.6 H, MCHC 31.6 L, RDW 16.1, Plt Count 222, MPV 9.8, Neut % (Auto) 90.1 H, Lymph % (Auto) 4.5 L, [place] % (Auto) 5.0, Eos % (Auto) 0.2, Baso % (Auto) 0.2, Neut # (Auto) 13.5 H, Lymph # (Auto) 0.7, [place] # (Auto) 0.7, Eos # (Auto) 0.0, Baso # (Auto) 0.0, Total Counted 100, Neutrophils % (Manual) 79 H, Band Neutrophils % 18.0 H, Lymphocytes % (Manual) 3 L, Platelet Estimate Normal, RBC Morphology Not Reportable, Hypochromasia 1+, Anisocytosis 1+, Macrocytosis 2+, ESR 106 H 02/26/21 20:15: Sodium 128 L, Potassium 4.6, Chloride 94 L, Carbon Dioxide 20 L, Anion Gap 18.6 H, BUN 55 H, Creatinine 3.30 H, Estimated Creat Clear 28, Estimated GFR 18 L*, Est GFR ( Amer) 22 L, Glucose 263 H, Calcium 8.4, Total Bilirubin 2.8 H, AST 235 H, ALT 21, Alkaline Phosphatase 519 H, Troponin I < 0.01, C-Reactive Protein 38.0 H, Total Protein 6.6, Albumin 3.5, Globulin 3.1, Albumin/Globulin Ratio 1.1, Amylase 60, Procalcitonin 10.6 H 02/26/21 20:15: SARS-CoV-2 (PCR) Not detected, Influenza A Untype (PCR) Not detected, Influenza Type B (PCR) Not detected 02/26/21 20:15: Lactate 2.0 02/26/21 21:05: Urine Color Yellow, Urine Appearance Clear, Urine pH 5.5, Ur Specific [place] 1.020, Urine Protein Negative, Urine Glucose (UA) Negative, Urine Ketones Negative, Urine Blood Negative, Urine Nitrate Negative, Urine Bilirubin Negative, Urine Urobilinogen 0.2, Ur Leukocyte Esterase Negative, Urine RBC None, Urine WBC Occasional, Ur Squamous Epith Cells None, Urine Bacteria None Result diagrams: 02/26/21 20:15 02/26/21 20:15 Orders (Tests/Meds): ED MEDICATIONS Generic Name Dose Route Start Last Admin Trade Name Freq PRN Reason Stop Dose Admin Sodium Chloride 1,000 mls @ 999 mls/hr 02/26/21 21:00 02/26/21 20:56 Sod Chlor 0.9% 1000ml Bag IV 02/26/21 22:00
--- NOTE | 2021-02-26 20:51 | XR_ITS ---
PROCEDURE INFORMATION: Exam: XR Chest Exam date and time: 02/26/2021 8:51 PM Age: 75 years old Clinical indication: Other: Weakness TECHNIQUE: Imaging protocol: XR of the chest. Views: 1 view. COMPARISON: CR XR CHEST PORTABLE 02/06/2021 7:47 PM FINDINGS: Airway: Patent Lungs: There are multiple punctate pulmonary parenchymal calcifications, consistent with remote granulomatous organism exposure. Low lung volumes causes crowding of the bronchovascular structures. No acute interstitial or airspace disease. Pleural spaces: Unremarkable. No pleural effusion. No pneumothorax. Heart/Mediastinum: Cardiomediastinal silhouette is magnified due to technique. Bones/joints: Old/healed fracture to the posterior segment of the right 5th rib. No acute skeletal abnormality or aggressive osseous lesion. IMPRESSION: No acute thoracic pathology.
--- NOTE | 2021-02-26 20:53 | ECG_ITS ---
APPROVED REPORT Exam: Resting ECG HR:80 bpm ECG Measurements Heart Rate 80 AXES UT 193 P 92 QRSd 109 QRS -5 QT 363 T 56 QTc 399 Conclusion SINUS RHYTHM NONSPECIFIC T-WAVE ABNORMALITY BORDERLINE ECG UNCONFIRMED REPORT Electronically signed by : Suhail Salcedo MD 02/27/2021 14:03:43
--- NOTE | 2021-02-26 20:54 | CT_ITS ---
PROCEDURE INFORMATION: Exam: CT Head Without Contrast Exam date and time: 02/26/2021 8:54 PM Age: 75 years old Clinical indication: Altered mental status/memory loss; Confusion or disorientation TECHNIQUE: Imaging protocol: Computed tomography of the head without contrast. Radiation optimization: All CT scans at this facility use at least one of these dose optimization techniques: automated exposure control; mA and/or kV adjustment per patient size (includes targeted exams where dose is matched to clinical indication); or iterative reconstruction. COMPARISON: CT HEAD/BRAIN WO CON 02/05/2021 12:56 PM FINDINGS: Brain: Age related brain involution is present. No acute intracranial hemorrhage, mass effect, midline shift, or brain herniation. Diffuse subcortical and periventricular white matter hypodensities are most in favor with chronic small vessel disease. Cerebral ventricles: There is ex vacuo ventriculomegaly. Paranasal sinuses: Visualized sinuses are unremarkable. No fluid levels. Mastoid air cells: Visualized mastoid air cells are well aerated. Orbital cavity: There have been bilateral intraocular lens replacements. Vasculature: Intracranial atherosclerosis is present. Bones/joints: Unremarkable. No acute fracture. Soft tissues: Unremarkable. IMPRESSION: No acute intracranial pathology.
[2021-02-26 20:58] VITALS: BP 101/49
[2021-02-26 21:01] LABS: Basophils % 0.2 % (0.1-2.0); Eosinophils % 0.2 % (0.1-12.0); Hematocrit 31.1 % (42.0-52.0); Hemoglobin 9.8 g/dL (14.1-18.0); Lymphocytes # 0.7 K/mm3 (0.7-4.5); Lymphocytes % 4.5 % (10-50); Mean Corpuscular HGB Conc 31.6 g/dL (31.8-35.4); Mean Corpuscular Hemoglobin 32.6 pg (27.0-31.2); Mean Corpuscular Volume 103.2 fl (80-94); Mean Platelet Volume 9.8 fl (7.4-10.4); Monocytes # 0.7 K/mm3 (0.1-1.0); Neutrophils # 13.5 K/mm3 (1.8-7.8); Neutrophils % 90.1 % (37.0-80.0); Platelet Count 222 K/mm3 (142-424); Red Blood Count 3.01 M/mm3 (4.60-6.20); Red Cell Distribution Width 16.1 % (11.5-17.5); White Blood Count 14.9 K/mm3 (4.8-10.8)
[2021-02-26 21:09] LABS: Alanine Aminotransferase 21 U/L (12-78); Albumin Level 3.5 g/dl (3.5-5.0); Albumin/Globulin Ratio 1.1 (1.1-1.8); Amylase 60 U/L (30-110); Anion Gap 18.6 mEq/L (5-15); Aspartate Amino Transferase 235 U/L (17-59); Bilirubin,Total 2.8 mg/dl (0.2-1.3); Blood Urea Nitrogen 55 mg/dl (9-20); Calcium 8.4 mg/dl (8.4-10.2); Carbon Dioxide 20 mmol/L (22.0-30.0); Chloride 94 mmol/L (98-107); Creatinine Clearance Estimated 28 mL/min (50-200); Estimated Glomerular Filt Rate 18 ml/min (>60); GFR (African American) 22 ML/MIN (>60); Globulin 3.1 g/dL (1.3-3.2); Glucose 263 mg/dl (74-100); Potassium 4.6 mmoL/L (3.5-5.1); Sodium 128 mmol/L (136-145); Total Protein,Serum 6.6 g/dl (6.3-8.2)
[2021-02-26 21:11] LABS: MANUAL DIFFERENTIAL MANUAL DIFFERENTIAL (MANUAL DIFF)
[2021-02-26 21:12] LABS: Alkaline Phosphatase 519 U/L (38-126)
[2021-02-26 21:17] LABS: Microscopic, Urine URINE MICROSCOPIC (MICROSCOPIC)
[2021-02-26 21:19] LABS: Coronavirus 19, PCR Not Detected (NotDetected); Influenza A, PCR Not Detected (NotDetected); Influenza B, PCR Not Detected (NotDetected)
[2021-02-26 21:25] LABS: Appearance,Urine CLEAR (Clear); Bilirubin,Urine Negative (Negative); Blood, Urine Negative (Negative); Color,Urine YELLOW (Yellow); Glucose,Urine (UA) Negative (Negative); Ketones,Urine Negative (Negative); Leukocyte Esterase,Urine Negative (Negative); Nitrate,Urine Negative (Negative); PH,Urine 5.5 (5.0-8.5); Protein,Urine Negative (Negative); Urobilinogen,Urine 0.2 EU/dl (0.2)
[2021-02-26 21:28] LABS: Procalcitonin 10.6 ng/mL (0.0-2.0)
[2021-02-26 21:32] LABS: Erythrocyte Sedimentation Rate 106 mm/hr (0-20); Troponin I < 0.01 ng/ml (0.00-0.034)
[2021-02-26 21:34] LABS: Anisocytosis 1+; Hypochromasia 1+; Lymphocytes % 3 % (10-50); Macrocytosis 2+; Neutrophils % 79 % (42-76); Platelet Estimate Normal; Total Cells Counted 100
[2021-02-26 21:35] LABS: WBC,Urine Occasional #/hpf (0-3)
--- NOTE | 2021-02-26 21:41 | PC.NURSE ---
Called patient daughter to review medications. Patient and daughter requested password of [place] be used for communications.
--- NOTE | 2021-02-26 22:20 | CT_ITS ---
PROCEDURE INFORMATION: Exam: CT Left Lower Extremity Without Contrast, Foot Exam date and time: 02/26/2021 10:20 PM Age: 75 years old Clinical indication: Other: Wound left heel swelling; Additional info: Wound examination TECHNIQUE: Imaging protocol: CT of the Left lower extremity without contrast was performed. Exam focused on the foot. Radiation optimization: All CT scans at this facility use at least one of these dose optimization techniques: automated exposure control; mA and/or kV adjustment per patient size (includes targeted exams where dose is matched to clinical indication); or iterative reconstruction. COMPARISON: MR FOOT LT WO/W CON 11/06/2019 9:48 AM FINDINGS: Bones/joints: Osteopenia. No acute fracture or dislocation. No osteomyelitis. Soft tissues: Severe soft tissue swelling involving the ankle and foot. Skin thickening diffusely. No soft tissue gas. No necrotizing fasciitis. No abscess. Severe osteopenia. IMPRESSION: Cellulitis. No evidence for osteomyelitis.
[2021-02-27 00:25] LABS: Troponin I < 0.01 ng/ml (0.00-0.034)
[2021-02-27 05:06] VITALS: BP 100/62; PULSE 80; RESP 20; TEMP 36.8; O2SAT 99
[2021-02-27 05:39] LABS: POC Glucose,Bedside 160 (70-110)
[2021-02-27 06:33] LABS: Basophils # 0.1 K/mm3 (0-0.2); Basophils % 0.4 % (0.1-2.0); Eosinophils # 0.1 K/mm3 (0.0-0.4); Eosinophils % 0.4 % (0.1-12.0); Hematocrit 28.9 % (42.0-52.0); Hemoglobin 9.3 g/dL (14.1-18.0); Lymphocytes % 8.2 % (10-50); Mean Corpuscular HGB Conc 32.1 g/dL (31.8-35.4); Mean Corpuscular Hemoglobin 32.7 pg (27.0-31.2); Mean Corpuscular Volume 101.9 fl (80-94); Mean Platelet Volume 8.7 fl (7.4-10.4); Monocytes # 0.7 K/mm3 (0.1-1.0); Monocytes % 5.5 % (1.7-9.3); Neutrophils # 10.3 K/mm3 (1.8-7.8); Neutrophils % 85.4 % (37.0-80.0); Platelet Count 167 K/mm3 (142-424); Red Blood Count 2.84 M/mm3 (4.60-6.20); White Blood Count 12.1 K/mm3 (4.8-10.8)
[2021-02-27 06:36] LABS: MANUAL DIFFERENTIAL MANUAL DIFFERENTIAL (MANUAL DIFF)
[2021-02-27 06:53] LABS: Anion Gap 14.4 mEq/L (5-15); Blood Urea Nitrogen 54 mg/dl (9-20); Calcium 7.8 mg/dl (8.4-10.2); Carbon Dioxide 20 mmol/L (22.0-30.0); Chloride 99 mmol/L (98-107); Creatinine Clearance Estimated 33 mL/min (50-200); Estimated Glomerular Filt Rate 22 ml/min (>60); GFR (African American) 27 ML/MIN (>60); Glucose 163 mg/dl (74-100); Potassium 4.4 mmoL/L (3.5-5.1); Sodium 129 mmol/L (136-145)
[2021-02-27 07:09] LABS: Magnesium 0.7 mg/dl (1.6-2.3)
[2021-02-27 08:00] VITALS: BP 105/53; PULSE 64; RESP 18; TEMP 36.4; O2SAT 98
[2021-02-27 08:47] LABS: Lymphocytes % 8 % (10-50); Monocytes % 4 % (2-9); Neutrophils % 86 % (42-76); Total Cells Counted 100
[2021-02-27 08:48] LABS: Macrocytosis 1+; Platelet Estimate Normal
--- NOTE | 2021-02-27 09:29 | HMH.HP ---
*Admission Date: 02/26/21 *Chief complaint: fever *History of present illness: this pt presented to the ed with fever and dec po intake and weakness-daughter states that patient has had confusion, weakness and fever with decreased urine output since this evening. Daughter states that the confusion often occurs when her father has a fever. Per patient his only complaint is fever and weakness pt was found in the ed to have elevated esr and infection lt foot with acute renal failure and was admitted [facility] History I have reviewed the patient's past medical history: Yes Medical History: Reports:: Anxiety, Depression, Diabetes Mellitus Type 2, Gastroesophageal Reflux Disease(GERD), Hyperlipidemia, Hypertension Denies:: Cancer, Diabetes Mellitus Type 1, Internal Pacemaker, MRSA *Have you ever received a pneumonia vaccine?: No *Have you received a flu vaccine this season?: No Other Medical History: Reports: Arthritis, Hypothyroidism, Thyroid Disease, Other Laterality Cases: Right: Arthroscopy Shoulder, Bilateral: Carpal Tunnel Release Other Surgeries: Yes: No Previous Surgery, Colonoscopy, EGD, Other. 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) Fractures: No - *Social History Smoking Status: Former smoker Tobacco Type: cigarettes # Packs/Day (cigarettes): 3 #Yrs smoked (if former smoker): 13 Alcohol Intake: never Substance Use Type: denies use *Occupational Status:: unemployed Housing: house Household Members: family *Travel in the last 8 weeks: None - Psychiatric History Pschychiatric History:: Reports:: Anxiety, Depression Family Hx:: Cancer, Hypertension Review of Systems - Review of Systems Review of systems:: pertinent systems reviewed and negative unless documented below - Constitutional Denies fever(s) - Eyes Denies change in vision - ENT Denies sore throat - *Cardiovascular Denies chest pain - *Respiratory Denies cough - *Gastrointestinal Denies abdominal pain - *Genitourinary Denies blood in urine - *Musculoskeletal Reports joint pain, Reports joint swelling, Reports limited joint movement - Integumentary/Breasts Reports other (changes lt foot ), Denies rash - *Neurologic Reports confusion, Reports weakness, Denies localized weakness, Denies seizure-like activity - Psychiatric Denies anxiety Meds Home Medications Medication Instructions Recorded Confirmed Type Atorvastatin Calcium [Lipitor 40mg 40 mg PO HS 11/19/20 02/26/21 History Tab] Carbidopa/Levodopa [Sinemet 25-100 1 each PO QID 11/19/20 02/26/21 History mg Tablet] Insulin Glargine,Hum.rec.anlog 60 units SQ DAILY 11/19/20 02/26/21 History [Lantus Solostar 100 Units/mL 3mL flexpen] Levothyroxine Sodium [Synthroid 25 mcg PO DAILY 11/19/20 02/26/21 History 25mcg (0.025mg) tablet] PARoxetine HCL [Paroxetine HCl] 40 mg PO DAILY 11/19/20 02/26/21 History Quetiapine Fumarate 50 mg PO HS 11/19/20 02/26/21 History Spironolactone [Spironolactone 25 mg PO DAILY 11/19/20 02/26/21 History 25mg Tablet] Torsemide [Demadex] 20 mg PO DAILY 11/19/20 02/26/21 History allopurinoL [Allopurinol 300mg 300 mg PO DAILY 11/19/20 02/26/21 History tablet] carvediloL [Carvedilol 25mg Tab] 25 mg PO BID 11/19/20 02/26/21 History lisinopriL [Lisinopril] 20 mg PO DAILY 11/19/20 02/26/21 History amlodipine 5 mg tablet 5 mg PO DAILY tab 12/09/20 02/05/21 History vortioxetine 20 mg tablet 20 mg PO DAILY tab 12/09/20 02/26/21 History omeprazole 20 mg capsule,delayed 20 mg PO BID #180 cap 01/25/21 02/26/21 Rx release Dulaglutide [Trulicity] 3 mg SQ WEEKLY 02/05/21 02/26/21 History Doxazosin Mesylate [Cardura 4mg 4 mg PO DAILY 02/06/21 02/26/21 History Tab] Insulin Aspart [Novolog] 0 unit SQ ACHS 02/06/21 02/26/21 History trazodone 50 mg tablet 50 mg PO HS #30 tab 02/15/21 02/26/21 Rx gabapentin 400 mg capsule 400 mg PO TID #90 cap 02/17/21 02/26/21 Rx Aspirin [Aspirin 81mg chewable 81 mg PO DAILY
--- NOTE | 2021-02-27 09:57 | HMH.PHACONS ---
- Pharmacy Consult Date: 02/27/21 Time: 09:57 Referring provider: DR. WAGNER Reason for Consult:: VANCOMYCIN DOSING Allergies and ADEs:: Allergies Allergy/AdvReac Type Severity Reaction Status Date / Time No Known Allergies Allergy Verified 01/25/21 16:13 Home Medications:: Home Medications Medication Instructions Recorded Confirmed Type Atorvastatin Calcium [Lipitor 40mg 40 mg PO HS 11/19/20 02/26/21 History Tab] Carbidopa/Levodopa [Sinemet 25-100 1 each PO QID 11/19/20 02/26/21 History mg Tablet] Insulin Glargine,Hum.rec.anlog 60 units SQ DAILY 11/19/20 02/26/21 History [Lantus Solostar 100 Units/mL 3mL flexpen] Levothyroxine Sodium [Synthroid 25 mcg PO DAILY 11/19/20 02/26/21 History 25mcg (0.025mg) tablet] PARoxetine HCL [Paroxetine HCl] 40 mg PO DAILY 11/19/20 02/26/21 History Quetiapine Fumarate 50 mg PO HS 11/19/20 02/26/21 History Spironolactone [Spironolactone 25 mg PO DAILY 11/19/20 02/26/21 History 25mg Tablet] Torsemide [Demadex] 20 mg PO DAILY 11/19/20 02/26/21 History allopurinoL [Allopurinol 300mg 300 mg PO DAILY 11/19/20 02/26/21 History tablet] carvediloL [Carvedilol 25mg Tab] 25 mg PO BID 11/19/20 02/26/21 History lisinopriL [Lisinopril] 20 mg PO DAILY 11/19/20 02/26/21 History amlodipine 5 mg tablet 5 mg PO DAILY tab 12/09/20 02/05/21 History vortioxetine 20 mg tablet 20 mg PO DAILY tab 12/09/20 02/26/21 History omeprazole 20 mg capsule,delayed 20 mg PO BID #180 cap 01/25/21 02/26/21 Rx release Dulaglutide [Trulicity] 3 mg SQ WEEKLY 02/05/21 02/26/21 History Doxazosin Mesylate [Cardura 4mg 4 mg PO DAILY 02/06/21 02/26/21 History Tab] Insulin Aspart [Novolog] 0 unit SQ ACHS 02/06/21 02/26/21 History trazodone 50 mg tablet 50 mg PO HS #30 tab 02/15/21 02/26/21 Rx gabapentin 400 mg capsule 400 mg PO TID #90 cap 02/17/21 02/26/21 Rx Aspirin [Aspirin 81mg chewable 81 mg PO DAILY 02/26/21 02/26/21 History tab] Height: 1.83 m Weight: 99.79 kg Laboratory Results:: Laboratory Results - last 24 hr 02/26/21 20:15: WBC 14.9 H, RBC 3.01 L, Hgb 9.8 L, Hct 31.1 L, MCV 103.2 H, MCH 32.6 H, MCHC 31.6 L, RDW 16.1, Plt Count 222, MPV 9.8, Neut % (Auto) 90.1 H, Lymph % (Auto) 4.5 L, [place] % (Auto) 5.0, Eos % (Auto) 0.2, Baso % (Auto) 0.2, Neut # (Auto) 13.5 H, Lymph # (Auto) 0.7, [place] # (Auto) 0.7, Eos # (Auto) 0.0, Baso # (Auto) 0.0, Total Counted 100, Neutrophils % (Manual) 79 H, Band Neutrophils % 18.0 H, Lymphocytes % (Manual) 3 L, Platelet Estimate Normal, RBC Morphology Not Reportable, Hypochromasia 1+, Anisocytosis 1+, Macrocytosis 2+, ESR 106 H 02/26/21 20:15: Sodium 128 L, Potassium 4.6, Chloride 94 L, Carbon Dioxide 20 L, Anion Gap 18.6 H, BUN 55 H, Creatinine 3.30 H, Estimated Creat Clear 28, Estimated GFR 18 L*, Est GFR ( Amer) 22 L, Glucose 263 H, Calcium 8.4, Total Bilirubin 2.8 H, AST 235 H, ALT 21, Alkaline Phosphatase 519 H, Troponin I < 0.01, C-Reactive Protein 38.0 H, Total Protein 6.6, Albumin 3.5, Globulin 3.1, Albumin/Globulin Ratio 1.1, Amylase 60, Procalcitonin 10.6 H 02/26/21 20:15: SARS-CoV-2 (PCR) Not detected, Influenza A Untype (PCR) Not detected, Influenza Type B (PCR) Not detected 02/26/21 20:15: Lactate 2.0 02/26/21 21:05: Urine Color Yellow, Urine Appearance Clear, Urine pH 5.5, Ur Specific [place] 1.020, Urine Protein Negative, Urine Glucose (UA) Negative, Urine Ketones Negative, Urine Blood Negative, Urine Nitrate Negative, Urine Bilirubin Negative, Urine Urobilinogen 0.2, Ur Leukocyte Esterase Negative, Urine RBC None, Urine WBC Occasional, Ur Squamous Epith Cells None, Urine Bacteria None 02/26/21 23:49: Troponin I < 0.01 02/27/21 05:28: WBC 12.1 H, RBC 2.84 L, Hgb 9.3 L, Hct 28.9 L, MCV 101.9 H, MCH 32.7 H, MCHC 32.1, RDW 16.0, Plt Count 167, MPV 8.7, Neut % (Auto) 85.4 H, Lymph % (Auto) 8.2 L, [place] % (Auto) 5.5, Eos % (Auto) 0.4, Baso % (Auto) 0.4, Neut # (Auto) 10.3 H, Lymph # (Auto) 1.0, [place] # (Auto) 0.7, Eos # (Auto) 0.1, Baso
[2021-02-27 10:41] VITALS: BMI 25.8
[2021-02-27 11:19] VITALS: BMI 25.7
[2021-02-27 11:31] LABS: POC Glucose,Bedside 92 (70-110)
[2021-02-27 11:37] VITALS: BP 123/64; PULSE 61; RESP 17; TEMP 36.9; O2SAT 96
--- NOTE | 2021-02-27 14:39 | P.CONPHA_ITS ---
[facility] Pharmacy VTE Monitoring - Patient Demographics Admission date: 02/26/21 Report Date: 02/27/21 Time: 14:39 Allergies/Adverse Reactions: Patient Allergies No Known Allergies Allergy (Verified 01/25/21 16:13) Height: 1.83 m Weight: 86.438 kg Patient Problems: Current Active Problems Acute renal failure (Acute) Decreased pedal pulses (Acute) Cellulitis of foot (Acute) Osteopenia determined by x-ray (Acute) Anemia (Acute) Elevated erythrocyte sedimentation rate (Acute) Elevated LFTs (Acute) SIRS (systemic inflammatory response syndrome) (Acute) Type 2 diabetes mellitus with diabetic neuropathy, with long-term current use of insulin (Acute) Parkinson disease (Chronic) Hypothyroidism (Acute) - VTE Risk Labs: VTE Related Lab Results Hgb 9.3 g/dL (14.1-18.0) L 02/27/21 05:28 Hct 28.9 % (42.0-52.0) L 02/27/21 05:28 Plt Count 167 K/mm3 (142-424) 02/27/21 05:28 BUN 54 mg/dl (9-20) H 02/27/21 05:28 Creatinine 2.80 mg/dl (0.66-1.25) H 02/27/21 05:28 Estimated Creat Clear 33 mL/min (50-200) 02/27/21 05:28 - Prophylaxis VTE Prophylaxis Ordered?: Yes Types of VTE Prophylaxis: TEDS Knee High, Pharmacological Location of Applied Device: Bilateral Lower Extremeties Pharmacologic Type: Enoxaparin
--- NOTE | 2021-02-27 14:40 | PC.WOUNDNOTE ---
Photo by Jerome Guzman RN
--- NOTE | 2021-02-27 14:41 | PC.WOUNDNOTE ---
Photo by Jerome Guzman RN
--- NOTE | 2021-02-27 14:41 | PC.WOUNDNOTE ---
Photo by Jerome Guzman RN
--- NOTE | 2021-02-27 14:42 | PC.WOUNDNOTE ---
Photo by Jerome Guzman RN
--- NOTE | 2021-02-27 14:59 | PC.NURSE ---
PT IS RESTING IN BED. ALERT AND ORIENTED X4. PT HAS BEEN TURNING AND REPOSITIONING SELF IN BED. STAGE 2 ULCER NOTED TO LT HEEL WITH DRESSING C/D/I. WEAK PEDAL PULSES. AREA NOTED TO LT MENA. SCATTERED ABRASIONS NOTED TO BLE. SMALL STAGE 2 NOTED TO THE BUTTOCKS. BATH AND BED CHANGE THIS SHIFT. PT REQUESTED FOR HIS CATHETER TO BE REMOVED B/C IT WAS CAUSING DISCOMFORT. WILL CONTINUE TO MONITOR.
[2021-02-27 16:00] VITALS: BP 112/63; PULSE 65; RESP 18; TEMP 37; O2SAT 95
[2021-02-27 16:44] LABS: POC Glucose,Bedside 183 (70-110)
--- NOTE | 2021-02-27 16:55 | HMH.PHAINT ---
MEDICATION RECONCILIATION COMPLETED ON PATIENT USING EXTERNAL FILL HISTORY FROM PHARMACY AND LIST FROM PCP OFFICE. -JOEL RAMIREZD
[2021-02-27 20:00] VITALS: BP 143/67; PULSE 77; RESP 18; TEMP 37.4; O2SAT 96
[2021-02-27 20:19] LABS: POC Glucose,Bedside 147 (70-110)
[2021-02-28] VITALS: BP 106/51; PULSE 87; RESP 19; TEMP 37.1; O2SAT 97
[2021-02-28 04:00] VITALS: BP 118/57; PULSE 81; RESP 20; TEMP 37.3; O2SAT 95
[2021-02-28 05:28] LABS: POC Glucose,Bedside 187 (70-110)
[2021-02-28 06:27] LABS: Basophils % 0.4 % (0.1-2.0); Eosinophils # 0.2 K/mm3 (0.0-0.4); Eosinophils % 2.4 % (0.1-12.0); Hematocrit 27.5 % (42.0-52.0); Hemoglobin 8.9 g/dL (14.1-18.0); Lymphocytes # 0.9 K/mm3 (0.7-4.5); Lymphocytes % 12.5 % (10-50); Mean Corpuscular HGB Conc 32.5 g/dL (31.8-35.4); Mean Corpuscular Hemoglobin 32.7 pg (27.0-31.2); Mean Corpuscular Volume 100.7 fl (80-94); Mean Platelet Volume 8.4 fl (7.4-10.4); Monocytes # 0.5 K/mm3 (0.1-1.0); Monocytes % 6.7 % (1.7-9.3); Neutrophils # 5.7 K/mm3 (1.8-7.8); Platelet Count 192 K/mm3 (142-424); Red Blood Count 2.73 M/mm3 (4.60-6.20); Red Cell Distribution Width 16.3 % (11.5-17.5); White Blood Count 7.4 K/mm3 (4.8-10.8)
[2021-02-28 06:29] LABS: Anion Gap 12.2 mEq/L (5-15); Blood Urea Nitrogen 46 mg/dl (9-20); Calcium 8.4 mg/dl (8.4-10.2); Carbon Dioxide 20 mmol/L (22.0-30.0); Chloride 107 mmol/L (98-107); Creatinine Clearance Estimated 42 mL/min (50-200); Estimated Glomerular Filt Rate 35 ml/min (>60); GFR (African American) 42 ML/MIN (>60); Glucose 178 mg/dl (74-100); Potassium 4.2 mmoL/L (3.5-5.1); Sodium 135 mmol/L (136-145)
[2021-02-28 08:00] VITALS: BP 129/59; PULSE 80; RESP 18; TEMP 37.1; O2SAT 96
--- NOTE | 2021-02-28 08:00 | CA_ITS ---
FINAL REPORT TECHNIQUE: Bilateral lower extremity venous duplex was performed with augmentation and compression. CLINICAL HISTORY: SWELLING BLE,CELLULITIS LT FOOT FINDINGS: Proper flow is seen throughout the deep venous systems bilaterally. There is no evidence of deep venous thrombosis. IMPRESSION: No evidence of deep venous thrombosis. Reviewed, Interpreted and Dictated by Danny Shannon MD Transcribed by Sadie Warren Authenticated by Danny Shannon MD on 02/28/2021 12:18:22 PM [facility]
--- NOTE | 2021-02-28 09:07 | HMH.ORTHOCON ---
*Admission Date: 02/26/21 <Aleyda Khan - 02/28/21 09:45> *Reason for consult:: Infected foot <Aleyda Khan - 02/28/21 09:45> *History of present illness: This pt presented to the ed with fever and dec po intake and weakness-daughter states that patient has had confusion, weakness and fever with decreased urine output since this evening. Daughter states that the confusion often occurs when her father has a fever. Per patient his only complaint is fever and weakness pt was found in the ed to have elevated esr and infection lt foot with acute renal failure and was admitted. PODIATRY CONSULT FOR INFECTED FOOT: Patient is a 75 year-old diabetic male known to the podiatry team who was recently discharged home and was re-admitted 02/26/21 for fever, weakness, elevated erythrocyte sedimentation rate (ESR), diabetic foot infection, and acute renal failure. PCP team consulted podiatry for continued ongoing left heel diabetic ulcer. Patient currently, resting in bed. Awake alert and oriented x3. No acute distress noted. Patient stated that his daughter was not able to take him to [facility] as indicated at last hospital discharge. 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 The left heel has a non healing or chronic diabetic ulcer with brown callus surrounding the wound. There is cellulitis, and edema noted at site. There is no drainage noted. Mild pain with palpation and compression of left heel.The Dorsalis pedis and posterior tibial pulses weakly palpable. Ct scan left foot reviewed by . No evidence of osteomyelitis. Discussed with patient treatment options for left heel diabetic ulcer. PCP working on finding a placement for patient. Patient was not able to follow up with [facility] wound care clinic or with podiatry as indicated at last hospital discharge. Patient is not a candidate for surgery. We will treat conservatively with betadine wound dressing change two to three time a week. <Aleyda Khan - 02/28/21 12:24> [facility] History Medical History: Reports:: Anxiety, Depression, Diabetes Mellitus Type 2, Gastroesophageal Reflux Disease(GERD), Hyperlipidemia, Hypertension Denies:: Cancer, Diabetes Mellitus Type 1, Internal Pacemaker, MRSA <Aleyda Khan - 02/28/21 09:45> *Have you ever received a pneumonia vaccine?: No <BillAleyda 02/28/21 09:45> *Have you received a flu vaccine this season?: No <BillAleyda 02/28/21 09:45> Other Medical History: Reports: Arthritis, Hypothyroidism, Thyroid Disease, Other <BillAleyda 02/28/21 09:45> Laterality Cases: Right: Arthroscopy Shoulder, Bilateral: Carpal Tunnel Release <BillAleyda 02/28/21 09:45> Other Surgeries: Yes: No Previous Surgery, Colonoscopy, EGD, Other. 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) [facility] 02/28/21 09:45> Fractures: No <[facility] 02/28/21 09:45> - *Social History Smoking Status: Former smoker <BillAleyda 02/28/21 09:45> Tobacco Type: cigarettes <BillAleyda 02/28/21 09:45> # Packs/Day (cigarettes): 3 <[facility] 02/28/21 09:45> #Y[facility] smoked (if former smoker): 13 [facility] 02/28/21 09:45> Alcohol Intake: never <[facility] 02/28/21 09:45> Substance Use Type: denies use <BillAleyda 02/28/21 09:45> *Occupational Status:: unemployed <BillAleyda 02/28/21 09:45> Housing: house <darinAleyda 02/28/21 09:45> Household Members: family <BillAleyda 02/28/21 09:45> *Travel in the last 8 weeks: None <BillAleyda 02/28/21 09:45> - Psychiatric History Pschychiatric History:: Reports:: Anxiety, Depression <ParisadarinAleyda 02/28/21 09:45> Family Hx:: Cancer, Hypertension <Aleyda Khan - 02/28/21 09:45> Review of Systems - Review of Systems Review of systems:: other <Aleyda Khan -
--- NOTE | 2021-02-28 09:11 | SW/DCPLANNER ---
Addendum entered by [facility] 03/02/21 09:41: I did inform daughter of discharge plan. Family can not transport patient I will contact [facility]/ambulance service. Addendum entered by [facility] [place] 03/02/21 09:39: Pending negative COVID swab today this patient will discharge to [facility] under SNF level of care for IV antibiotics. I attempted to contact family yesterday with no answer: I will try again this AM. Addendum entered by [facility] 03/01/21 13:46: Sophia with [facility] has accepted this patient once medically stable for discharge. Patient will require a COVID swab prior to discharge. Daughter did not answer when attempted to call. Addendum entered by [facility] 03/01/21 13:05: Patient will now require IV antibiotics at time of discharge due to positive blood cultures. After a lengthy conversation with patient regarding the need for placement due to IV antibiotics patient is agreeable. Patient prefers to stay in [place]: information has been faxed to [facility]. I will also follow up with patients daughter regarding discharge plans. Addendum entered by [facility] 03/01/21 10:51: I spoke with this patient this AM regarding discharge plans. Patient is alert and oriented: patient is adamant to return home with home health services. Patient stated that family is present 28/08 and he has all appropriate DME at home. Patient is currently established with [facility]. I also explained the importance of returning to all follow up appointments: patient voiced that he understood and stated there were issues previously due to weather. Discharge date is unknown at this time for this patient. Original Note: I spoke with patients daughter (Nubia) regarding discharge plans. Nubia stated that patient is currently established with [facility] and has been doing well at home prior to readmission. Nubia stated that patient is adamant to return home and is not interested in placement. Nubia also stated that patients granddaughter would be staying with him to help once he returns home. I will contact Brent with [facility] regarding hospital admission and discharge. Discharge date is unknown at this time. I also offered a private sitters list to family: Nubia stated this is not needed at this time. My name and number has been provided to family for any future questions/assistance.
--- NOTE | 2021-02-28 09:43 | HMH.ACPN2 ---
Internal Medicine - PN: Subj *Date: 02/28/21 *Time: 08:35 Interval history: pt asking for something to drink Exam Vital signs and Labs for Last 24 Hours: Temp Pulse Resp BP Pulse Ox 99.1 F 81 20 118/57 L 95 02/28/21 04:00 02/28/21 04:00 02/28/21 04:00 02/28/21 04:00 02/28/21 04:00 Laboratory Results - last 24 hr 02/27/21 11:23: POC Glucose 92 02/27/21 16:28: POC Glucose 183 H 02/27/21 19:57: POC Glucose 147 H 02/28/21 05:09: WBC 7.4 D, RBC 2.73 L, Hgb 8.9 L, Hct 27.5 L, MCV 100.7 H, MCH 32.7 H, MCHC 32.5, RDW 16.3, Plt Count 192, MPV 8.4, Neut % (Auto) 78.0, Lymph % (Auto) 12.5, [place] % (Auto) 6.7, Eos % (Auto) 2.4, Baso % (Auto) 0.4, Neut # (Auto) 5.7, Lymph # (Auto) 0.9, [place] # (Auto) 0.5, Eos # (Auto) 0.2, Baso # (Auto) 0.0 02/28/21 05:09: Sodium 135 L, Potassium 4.2, Chloride 107, Carbon Dioxide 20 L, Anion Gap 12.2, BUN 46 H, Creatinine 1.90 H D, Estimated Creat Clear 42, Estimated GFR 35 L, Est GFR ( Amer) 42 L D, Glucose 178 H, Calcium 8.4 02/28/21 05:15: POC Glucose 187 H I & O for Last 24 hours: Intake & Output 02/25/21 02/26/21 02/27/21 02/28/21 11:59 11:59 11:59 11:59 Intake Total 480 / 480 480 / 480 Output Total 1750 / 1750 2600 / 2600 Balance -1270 / -1270 -2120 / -2120 Weight 190 lb 9 oz Microbiology Reports for the Last 24 Hours: Microbiology 02/26/21 20:15 Blood Blood Culture - Preliminary 02/26/21 20:15 Blood Blood Culture - Preliminary - Constitutional no acute distress, chronically ill appearing - *Routine HEENT Exam Head: Present: normocephalic Eye: Present: PERRL ENT: Present: mucous membranes moist - *Routine Neck Exam Present: supple. Absent: lymphadenopathy - *Routine Respiratory Exam Present: CTA bilaterally - *Routine Cardiovascular Exam Present: RRR - *Routine Abdominal Exam Present: soft, normoactive bowel sounds. Absent: tenderness - *Routine Extremities Exam Absent: cyanosis, clubbing, edema - *Routine Skin Exam Present: wounds. Absent: rash Comments: rt foot dressing in place - *Routine Neurological Exam Present: alert Assessment and Plan (1) Acute renal failure Status: Acute Qualifiers: Qualified Code(s): N17.9 - Acute kidney failure, unspecified Category: Medical Code(s): N17.9 - Acute kidney failure, unspecified (2) Anemia Status: Acute Qualifiers: Qualified Code(s): D64.9 - Anemia, unspecified Category: Medical Code(s): D64.9 - Anemia, unspecified (3) Cellulitis of foot Status: Acute Category: Medical Code(s): L03.119 - Cellulitis of unspecified part of limb (4) Decreased pedal pulses Status: Acute Category: Medical Code(s): R09.89 - Other specified symptoms and signs involving the circulatory and respiratory systems (5) Elevated LFTs Status: Acute Category: Medical Code(s): R79.89 - Other specified abnormal findings of blood chemistry (6) Elevated erythrocyte sedimentation rate Status: Acute Category: Medical Code(s): R70.0 - Elevated erythrocyte sedimentation rate (7) Hypothyroidism Status: Acute Qualifiers: Qualified Code(s): E03.9 - Hypothyroidism, unspecified Category: Medical Code(s): E03.9 - Hypothyroidism, unspecified (8) Osteopenia determined by x-ray Status: Acute Category: Medical Code(s): M85.80 - Other specified disorders of bone density and structure, unspecified site (9) SIRS (systemic inflammatory response syndrome) Status: Acute Category: Medical Code(s): R65.10 - Systemic inflammatory response syndrome (SIRS) of non-infectious origin without acute organ dysfunction (10) Type 2 diabetes mellitus with diabetic neuropathy, with long-term current use of insulin Status: Acute Category: Medical Code(s): E11.40 - Type 2 diabetes mellitus with diabetic neuropathy, unspecified; Z79.4 - senior care (current) use of insulin (11) Parkinson disease Status: Chronic Category: Medical
[2021-02-28 11:27] LABS: POC Glucose,Bedside 147 (70-110)
[2021-02-28 14:09] LABS: Vancomycin,Trough 7.1 ug/mL (5.0-10.0)
--- NOTE | 2021-02-28 14:40 | HMH.PHACONS ---
- Pharmacy Consult Date: 02/28/21 Time: 14:40 Referring provider: DR. THAO Reason for Consult:: VANCOMYCIN DOSE CHANGE Allergies and ADEs:: Allergies Allergy/AdvReac Type Severity Reaction Status Date / Time No Known Allergies Allergy Verified 01/25/21 16:13 Home Medications:: Home Medications Medication Instructions Recorded Confirmed Type Atorvastatin Calcium [Lipitor 40mg 40 mg PO HS 11/19/20 02/26/21 History Tab] Carbidopa/Levodopa [Sinemet 25-100 1 each PO QID 11/19/20 02/26/21 History mg Tablet] Insulin Glargine,Hum.rec.anlog 60 units SQ DAILY 11/19/20 02/26/21 History [Lantus Solostar 100 Units/mL 3mL flexpen] Levothyroxine Sodium [Synthroid 25 mcg PO DAILY 11/19/20 02/26/21 History 25mcg (0.025mg) tablet] PARoxetine HCL [Paroxetine HCl] 40 mg PO DAILY 11/19/20 02/26/21 History Spironolactone [Spironolactone 25 mg PO DAILY 11/19/20 02/26/21 History 25mg Tablet] Torsemide [Demadex] 20 mg PO DAILY 11/19/20 02/26/21 History allopurinoL [Allopurinol 300mg 300 mg PO DAILY 11/19/20 02/26/21 History tablet] carvediloL [Carvedilol 25mg Tab] 25 mg PO BID 11/19/20 02/26/21 History lisinopriL [Lisinopril] 20 mg PO DAILY 11/19/20 02/26/21 History amlodipine 5 mg tablet 5 mg PO BID tab 12/09/20 02/27/21 History vortioxetine 20 mg tablet 20 mg PO DAILY tab 12/09/20 02/26/21 History omeprazole 20 mg capsule,delayed 20 mg PO BID #180 cap 01/25/21 02/26/21 Rx release Dulaglutide [Trulicity] 3 mg SQ WEEKLY 02/05/21 02/26/21 History Doxazosin Mesylate [Cardura 4mg 4 mg PO DAILY 02/06/21 02/26/21 History Tab] Insulin Aspart [Novolog] 0 unit SQ ACHS 02/06/21 02/26/21 History trazodone 50 mg tablet 50 mg PO HS #30 tab 02/15/21 02/26/21 Rx gabapentin 400 mg capsule 400 mg PO TID #90 cap 02/17/21 02/26/21 Rx Aspirin [Aspirin 81mg chewable 81 mg PO DAILY 02/26/21 02/26/21 History tab] Quetiapine Fumarate [Seroquel 100 mg PO HS 02/27/21 02/27/21 History 100mg tablet] Height: 1.83 m Weight: 86.438 kg Laboratory Results:: Laboratory Results - last 24 hr 02/27/21 16:28: POC Glucose 183 H 02/27/21 19:57: POC Glucose 147 H 02/28/21 05:09: WBC 7.4 D, RBC 2.73 L, Hgb 8.9 L, Hct 27.5 L, MCV 100.7 H, MCH 32.7 H, MCHC 32.5, RDW 16.3, Plt Count 192, MPV 8.4, Neut % (Auto) 78.0, Lymph % (Auto) 12.5, [place] % (Auto) 6.7, Eos % (Auto) 2.4, Baso % (Auto) 0.4, Neut # (Auto) 5.7, Lymph # (Auto) 0.9, [place] # (Auto) 0.5, Eos # (Auto) 0.2, Baso # (Auto) 0.0 02/28/21 05:09: Sodium 135 L, Potassium 4.2, Chloride 107, Carbon Dioxide 20 L, Anion Gap 12.2, BUN 46 H, Creatinine 1.90 H D, Estimated Creat Clear 42, Estimated GFR 35 L, Est GFR ( Amer) 42 L D, Glucose 178 H, Calcium 8.4 02/28/21 05:15: POC Glucose 187 H 02/28/21 11:19: POC Glucose 147 H 02/28/21 12:50: Vancomycin Trough 7.1 Medical History: Reports:: Anxiety, Depression, Diabetes Mellitus Type 2, Gastroesophageal Reflux Disease(GERD), Hyperlipidemia, Hypertension Denies:: Cancer, Diabetes Mellitus Type 1, Internal Pacemaker, MRSA Assessment and Plan (1) Acute renal failure Status: Acute Qualifiers: Acute renal failure type: unspecified Qualified Code(s): N17.9 - Acute kidney failure, unspecified Category: Medical Code(s): N17.9 - Acute kidney failure, unspecified (2) Anemia Status: Acute Qualifiers: Anemia type: unspecified type Qualified Code(s): D64.9 - Anemia, unspecified Category: Medical Code(s): D64.9 - Anemia, unspecified (3) Cellulitis of foot Status: Acute Category: Medical Code(s): L03.119 - Cellulitis of unspecified part of limb (4) Decreased pedal pulses Status: Acute Category: Medical Code(s): R09.89 - Other specified symptoms and signs involving the circulatory and respiratory systems (5) Elevated LFTs Status: Acute Category: Medical Code(s): R79.89 - Other specified abnormal findings of blood chemistry (6) Elevated erythrocyte sedimentation rat
[2021-02-28 16:00] VITALS: BP 136/70; PULSE 71; RESP 18; TEMP 36.9; O2SAT 98
[2021-02-28 16:39] LABS: POC Glucose,Bedside 242 (70-110)
--- NOTE | 2021-02-28 18:44 | PC.NURSE ---
Pt is alert and oriented x4. Dressing to left foot changed per Dr Camarena's staff this am. It is clean, dry and intact. BLE have extensive scratching and scabbing. Rt foot / s/p previous toe amputations. He has used the urinal and bsc this shift w/assist x1. He's had 2 loose stools this shift. He refused a bath. Denies any complaints at this time.
[2021-02-28 20:00] VITALS: BP 122/65; PULSE 58; RESP 19; TEMP 37; O2SAT 99
[2021-02-28 20:14] LABS: POC Glucose,Bedside 252 (70-110)
[2021-02-28 23:22] LABS: Adenovirus F 40/41, stool Not Detected (NotDetected); Astrovirus Not Detected (NotDetected); Campylobacter Not Detected (NotDetected); Clostridium Difficile A/B, PCR Not Detected (NotDetected); Cryptosporidium Not Detected (NotDetected); Cyclospora Cayetanesis Not Detected (NotDetected); Entamoeba histolytica Not Detected (NotDetected); Enteroaggregative E coli Not Detected (NotDetected); Enteropathogenic E coli Not Detected (NotDetected); Enterotoxigenic E coli Not Detected (NotDetected); Giardia lamblia Not Detected (NotDetected); Norovirus Not Detected (NotDetected); Plesimonas Shigalloides, PCR Not Detected (NotDetected); Rotavirus A Not Detected (NotDetected); Salmonella, PCR Not Detected (NotDetected); Sapovirus Not Detected (NotDetected); Shiga-like toxin E coli Not Detected (NotDetected); Shigella Enterovasive E coli Not Detected (NotDetected); Vibrio Cholerae Not Detected (NotDetected); Vibrio, PCR Not Detected (NotDetected); Yersinia Entercolitica, PCR Not Detected (NotDetected)
[2021-03-01 04:00] VITALS: BP 128/65; PULSE 70; RESP 18; TEMP 36.4; O2SAT 98
[2021-03-01 05:00] VITALS: BMI 25.7
[2021-03-01 05:58] LABS: POC Glucose,Bedside 143 (70-110)
[2021-03-01 06:59] LABS: Basophils % 0.5 % (0.1-2.0); Eosinophils # 0.3 K/mm3 (0.0-0.4); Eosinophils % 3.9 % (0.1-12.0); Hemoglobin 9.4 g/dL (14.1-18.0); Lymphocytes # 1.4 K/mm3 (0.7-4.5); Lymphocytes % 21.1 % (10-50); Mean Corpuscular HGB Conc 31.2 g/dL (31.8-35.4); Mean Corpuscular Hemoglobin 32.4 pg (27.0-31.2); Mean Corpuscular Volume 103.9 fl (80-94); Mean Platelet Volume 9.1 fl (7.4-10.4); Monocytes # 0.4 K/mm3 (0.1-1.0); Monocytes % 5.9 % (1.7-9.3); Neutrophils # 4.5 K/mm3 (1.8-7.8); Neutrophils % 68.7 % (37.0-80.0); Platelet Count 205 K/mm3 (142-424); Red Blood Count 2.89 M/mm3 (4.60-6.20); Red Cell Distribution Width 16.6 % (11.5-17.5); White Blood Count 6.6 K/mm3 (4.8-10.8)
[2021-03-01 07:22] LABS: Anion Gap 12.3 mEq/L (5-15); Blood Urea Nitrogen 26 mg/dl (9-20); Calcium 8.7 mg/dl (8.4-10.2); Carbon Dioxide 22 mmol/L (22.0-30.0); Chloride 112 mmol/L (98-107); Creatinine Clearance Estimated 72 mL/min (50-200); Estimated Glomerular Filt Rate 65 ml/min (>60); GFR (African American) 79 ML/MIN (>60); Glucose 150 mg/dl (74-100); Potassium 4.3 mmoL/L (3.5-5.1); Sodium 142 mmol/L (136-145)
[2021-03-01 08:00] VITALS: BP 147/70; PULSE 74; RESP 18; TEMP 36.7; O2SAT 97
--- NOTE | 2021-03-01 08:44 | HMH.ORTHPN ---
Subjective Date: 03/01/21 <Aleyda Khan 03/01/21 09:06> Time: 08:00 <Aleyda Khan 03/01/21 09:06> Interval history: Patient lying comfortably in bed. Alert and oriented x3. No acute distress noted. Left heel wound dressing removed. Mild erythema noted. No drainage noted. No pain to palpation. The ulcer is limited to skin breakdown. No need for debridement today. Wound measurements: 4.0 x3.0 x 0.0 cm. Wound bed 100 % granular. Wound cleansed with saline. Betadine soaked 4x4, dry 4x4, kirlex and jeovanny wrap drewssing applied. Patient instructed to elevate left foot/heel as needed on a pillow to reduce swelling and pain. There is cat scratch reynolds noted all over patient lower legs. Skin remains dry. <Aleyda Khan 03/01/21 10:39> PN: Obj Ex Vital signs: Temp Pulse Resp BP Pulse Ox 98.1 F 74 18 147/70 H 97 03/01/21 08:00 03/01/21 08:00 03/01/21 08:00 03/01/21 08:00 03/01/21 08:00 <NicolOxana robles - 03/01/21 19:21> Temp Pulse Resp BP Pulse Ox 97.6 F 70 18 128/65 98 03/01/21 04:00 03/01/21 04:00 03/01/21 04:00 03/01/21 04:00 03/01/21 04:00 <Aleyda Khan 03/01/21 09:06> - Constitutional no acute distress, cooperative <Aleyda Khan 03/01/21 09:06> - Routine HEENT Exam Head: Present: normocephalic <Aleyda Khan 03/01/21 09:06> Eye: Present: EOMI <Aleyda Khan 03/01/21 09:06> ENT: Present: mucous membranes moist <Aleyda Khan 03/01/21 09:06> - Routine Neck Exam Present: supple, trachea midline <Aleyda Khan 03/01/21 09:06> - Routine Respiratory Exam Absent: accessory muscle use, respiratory distress <Aleyda Khan 03/01/21 09:06> - Routine Cardiovascular Exam Present: RRR <Aleyda Khan 03/01/21 09:06> - Routine Abdominal Exam Present: soft <Aleyda Khan 03/01/21 10:39> - Routine Extremities Exam Present: edema, pulses intact, normal capillary refill, tenderness, amputation. Absent: calf tenderness <Aleyda Khan 03/01/21 10:39> - Detailed Lower Extremity Exam Foot/Toes: Right amputation (2nd/3rd toes) <Aleyda Khan 03/01/21 10:39> Bottom foot image: 1 - Left heel wound dressing removed. There is no drainage noted when compressed. There is mild surrounding erythema and edema improving. The wound is limited to skin breakdown. The wound base is 100 granular. Wound measurements: 4.0 x 3.0x 0.0 cm.No needs for debridement. Wound cleansed with saline. Betadine soaked 4x4, dry 4x4, kirlex, and jeovanny wrap dressing applied. There is cat scratch reynolds noted to b/l lower legs. Right foot 2nd and 3rd toe amputation old and healed scar noted. Patient left foot elevated on a pillow. <Aleyda Khan 03/01/21 10:39> - Routine Skin Exam Present: erythema, dry, scars, wounds (left heel diabetic ulcer. right toe amputation 2nd/3rd) <Aleyda Khan 03/01/21 10:39> - Urinary Catheter Management Allen Cath placed during this visit: no <Oxana Camarena - 03/01/21 19:21> no <Aleyda Khan 03/01/21 10:59> Progress Note: A&P (1) Acute renal failure Status: Acute (2) Anemia Status: Acute (3) Cellulitis of foot Status: Acute (4) Decreased pedal pulses Status: Acute (5) Elevated LFTs Status: Acute (6) Elevated erythrocyte sedimentation rate Status: Acute (7) Hypothyroidism Status: Acute (8) Osteopenia determined by x-ray Status: Acute (9) SIRS (systemic inflammatory response syndrome) Status: Acute (10) Type 2 diabetes mellitus with diabetic neuropathy, with long-term current use of insulin Status: Acute (11) Parkinson disease Status: Chronic (12) Diabetic ulcer of left heel Status: Acute <Oxana Camarena - 03/01/21 19:21> (1) Acute renal failure Start date: 03/01/21 Status: Acute (2) Anemia Status: Acute (3) Cellulitis
--- NOTE | 2021-03-01 09:29 | HMH.ACPN2 ---
Internal Medicine - PN: Subj *Date: 03/01/21 *Time: 09:29 Interval history: 75-year-old male patient resting in bed quietly dressing intact to left heel, he reports he does feel better today. Podiatry in to see patient this morning and changed dressing. Creatinine down to 1.1 after IVF Exam Vital signs and Labs for Last 24 Hours: Temp Pulse Resp BP Pulse Ox 98.1 F 74 18 147/70 H 97 03/01/21 08:00 03/01/21 08:00 03/01/21 08:00 03/01/21 08:00 03/01/21 08:00 Laboratory Results - last 24 hr 02/28/21 19:59: POC Glucose 252 H 02/28/21 23:20: Stl Aeromonas (PCR) Not detected, Stl C. cayetanensis PCR Not detected, Stool Rotavirus (PCR) Not detected, Stl Adenov F 40/41 PCR Not detected, Stool Astrovirus (PCR) Not detected, Stool Campylobacter PCR Not detected, Stl C.difficile Tox PCR Not detected, Stool Cryptosporidium PCR Not detected, Stl E.coli Shiga Tox PCR Not detected, Stool E coli O157 PCR Not detected, Stl Enterotoxigenic E PCR Not detected, Stool EPEC (PCR) Not detected, Stool EAEC (PCR) Not detected, Stl E. histolytica PCR Not detected, Stool Giardia Lamblia PCR Not detected, Stool Salmonella PCR Not detected, Stool Sapovirus (PCR) Not detected, Stl P. shigelloides PCR Not detected, Stl Shigella/EIEC PCR Not detected, St Y.enterocolitica PCR Not detected, Stool Vibrio (PCR) Not detected, Stl Vibrio cholerae PCR Not detected, Stl Norovirus GI/GII PCR Not detected 03/01/21 05:52: POC Glucose 143 H 03/01/21 05:58: WBC 6.6, RBC 2.89 L, Hgb 9.4 L, Hct 30.0 L, MCV 103.9 H, MCH 32.4 H, MCHC 31.2 L, RDW 16.6, Plt Count 205, MPV 9.1, Neut % (Auto) 68.7, Lymph % (Auto) 21.1, [place] % (Auto) 5.9, Eos % (Auto) 3.9, Baso % (Auto) 0.5, Neut # (Auto) 4.5, Lymph # (Auto) 1.4, [place] # (Auto) 0.4, Eos # (Auto) 0.3, Baso # (Auto) 0.0 03/01/21 05:58: Sodium 142, Potassium 4.3, Chloride 112 H, Carbon Dioxide 22, Anion Gap 12.3, BUN 26 H D, Creatinine 1.10 D, Estimated Creat Clear 72, Estimated GFR 65, Est GFR ( Amer) 79 D, Glucose 150 H, Calcium 8.7 03/01/21 11:46: POC Glucose 220 H 03/01/21 17:14: POC Glucose 288 H I & O for Last 24 hours: Intake & Output 02/26/21 02/27/21 02/28/21 03/01/21 23:59 23:59 23:59 23:59 Intake Total 960 / 960 2171 / 2171 1555 / 1555 Output Total 3475 / 3925 1725 / 1725 3475 / 3475 Balance -2515 / -2965 446 / 446 -1920 / -1920 Weight 220 lb 189 lb 9.561 oz 190 lb Microbiology Reports for the Last 24 Hours: Microbiology 02/26/21 20:15 Blood Blood Culture - Final Escherichia coli 02/26/21 20:15 Blood Blood Culture - Preliminary Escherichia coli - Constitutional no acute distress, chronically ill appearing - *Routine HEENT Exam Head: Present: normocephalic Eye: Present: EOMI ENT: Present: mucous membranes moist - *Routine Neck Exam Present: trachea midline. Absent: tracheal deviation - *Routine Respiratory Exam Present: CTA bilaterally. Absent: accessory muscle use - *Routine Cardiovascular Exam Present: RRR - *Routine Abdominal Exam Present: soft, normoactive bowel sounds. Absent: tenderness - *Routine Extremities Exam Present: full ROM, pulses intact. Absent: cyanosis, edema - *Routine Skin Exam Present: lesions, wounds. Absent: intact, cyanosis Comments: Dressing to left heel clean/dry/intact Multiple scratches and abrasions to bilateral shins Darkened area left mid carter - *Routine Neurological Exam Present: alert, altered mental status - Routine Psychiatric Exam Present: unable to assess Assessment and Plan (1) Acute renal failure Start date: 03/01/21 Status: Acute Qualifiers: Acute renal failure type: unspecified Qualified Code(s): N17.9 - Acute kidney failure, unspecified Category: Medical Code(s): N17.9 - Acute kidney failure, unspecified (2) Anemia Status: Acute Qualifiers: Anemia type: unspecified type Qualified Code(s): D64.9 - Anemia, unspecifie
--- NOTE | 2021-03-01 11:08 | DIET.NUTRFU ---
RD visited patient to provide pressure ulcer education. Patient noted to have skin breakdown on left carter and on heal of left foot. Provided and reviewed handout regarding high calorie, high protein intake. Patient is currently receiving Glucerna TID, encouraged patient to continue drinking at home. Patient seemed receptive of education and willing to continue consuming Glucerna at home.
--- NOTE | 2021-03-01 11:33 | HMH.PTWOUND ---
Rehab Inpt Wound Evaluation Rehab IP Wound Evaluation Start: 03/01/21 09:31 Freq: ONCE Status: Active Protocol: Document 03/01/21 11:30 CANDIDA (Rec: 03/01/21 11:32 PWCANDACE [id number]) Rehab PT Wound Assessment Patient Status Premedicated Prior to Dressing Change No Subjective Subjective Pt reports willing to allow therapist to look at wound on L leg - pt has no other complaints Wound Left Alexandra Wound Type Abrasion Is This a Chronic Wound Yes Wound Length (cm) 7 Wound Width (cm) 4 Wound Bed Appearance [place] Percentage Granulated (%) 100 Percentage of Eschar (Black) (%) 100 Plan/Recommendation Comment Wound was epidermal scab - s/p removal of eschar underlying tissue healthy and pink epithelium - no wound care needed Eval Complexity Eval Charge Codes 14415 - Low Complexity G-codes PT Current Status Other PT/OT Status PT Current Status Modifier CI-At least 1% but less than 20% impaired, limited or restricted PT Goal Status Other PT/OT Status PT Goal Status Modifer CH-0% impaired, limited or restricted PHYSICIAN CERTIFICATION: I certify the specified therapy services for Tomas Crocker are required, authorized, and reviewed every 30 days.
[2021-03-01 11:52] LABS: POC Glucose,Bedside 220 (70-110)
--- NOTE | 2021-03-01 13:50 | XR_ITS ---
FINAL REPORT CLINICAL HISTORY: Confirm PICC line placement FINDINGS: A left-sided PICC line appears to terminate in the left brachiocephalic vein. The heart size is normal. The mediastinum is normal. There is no focal infiltrate or edema. There are no pleural effusions. There is no pneumothorax. There is no osseous abnormality. IMPRESSION: Left PICC line terminates in the left brachiocephalic vein. This could be advanced 4-5 cm. Reviewed, Interpreted and Dictated by Danny Shannon MD Transcribed by Max Modi Authenticated by Danny Shannon MD on 03/01/2021 04:50:46 PM [facility]
[2021-03-01 17:20] LABS: POC Glucose,Bedside 288 (70-110)
--- NOTE | 2021-03-01 17:41 | XR_ITS ---
PROCEDURE INFORMATION: Exam: XR Chest Exam date and time: 03/01/2021 5:41 PM Age: 75 years old Clinical indication: Device placement; Patient HX: Re-adjustment of picc line. Portable exam #2 after picc line was placed today. ; Additional info: Picc placement TECHNIQUE: Imaging protocol: XR of the chest. Views: 1 view. COMPARISON: CR XR CHEST PORTABLE PICC PLAC 03/01/2021 4:26 PM FINDINGS: Tubes, catheters and devices: The left subclavian PICC line has been placed, distal tip overlying the approximate location of the mid SVC. Lungs: Mildly diminished right lung volumes are present with elevation the right hemidiaphragm, stable. There are several punctate pulmonary parenchymal calcifications, consistent with remote granulomatous organism exposure. The lungs appear otherwise clear. No focal areas of consolidation. Pleural spaces: No pleural effusions or appreciable adenopathy. Negative for pneumothorax. Heart/Mediastinum: Cardiac silhouette and pulmonary vasculature are within range of normal. Bones/joints: There is no evidence of acute fracture. IMPRESSION: 1. Left subclavian PICC line distal tip overlying the approximate location of the mid SVC. No pneumothorax. 2. Otherwise, stable exam.
[2021-03-01 20:00] VITALS: BP 140/66; PULSE 57; RESP 17; TEMP 37; O2SAT 94; O2SAT 98
[2021-03-01 20:30] LABS: POC Glucose,Bedside 223 (70-110)
[2021-03-02 05:00] VITALS: BP 151/73; PULSE 77; RESP 20; TEMP 36.8; O2SAT 97; BMI 25.8
[2021-03-02 06:10] LABS: Blood Urea Nitrogen 14 mg/dl (9-20); Calcium 8.4 mg/dl (8.4-10.2); Carbon Dioxide 25 mmol/L (22.0-30.0); Chloride 110 mmol/L (98-107); Creatinine Clearance Estimated 79 mL/min (50-200); Estimated Glomerular Filt Rate 82 ml/min (>60); GFR (African American) 100 ML/MIN (>60); Glucose 187 mg/dl (74-100); Sodium 140 mmol/L (136-145)
[2021-03-02 06:38] LABS: Basophils % 0.7 % (0.1-2.0); Eosinophils # 0.2 K/mm3 (0.0-0.4); Eosinophils % 3.5 % (0.1-12.0); Hematocrit 31.4 % (42.0-52.0); Hemoglobin 9.5 g/dL (14.1-18.0); Lymphocytes # 1.3 K/mm3 (0.7-4.5); Lymphocytes % 22.9 % (10-50); Mean Corpuscular HGB Conc 30.2 g/dL (31.8-35.4); Mean Corpuscular Hemoglobin 31.6 pg (27.0-31.2); Mean Corpuscular Volume 104.5 fl (80-94); Monocytes # 0.3 K/mm3 (0.1-1.0); Monocytes % 5.1 % (1.7-9.3); Neutrophils # 3.9 K/mm3 (1.8-7.8); Neutrophils % 67.7 % (37.0-80.0); Platelet Count 200 K/mm3 (142-424); Red Blood Count 3.01 M/mm3 (4.60-6.20); Red Cell Distribution Width 16.5 % (11.5-17.5); White Blood Count 5.8 K/mm3 (4.8-10.8)
[2021-03-02 07:37] LABS: POC Glucose,Bedside 188 (70-110)
[2021-03-02 08:00] VITALS: BP 172/55; PULSE 62; RESP 16; TEMP 37; O2SAT 98
[2021-03-02 09:22] LABS: Coronavirus 19, PCR Not Detected (NotDetected); Influenza A, PCR Not Detected (NotDetected); Influenza B, PCR Not Detected (NotDetected)
--- NOTE | 2021-03-02 10:18 | HMH.DCSUM ---
General - General Admission date:: 02/27/21 Discharge date: 03/02/21 HPI HPI: this pt presented to the ed with fever and dec po intake and weakness-daughter states that patient has had confusion, weakness and fever with decreased urine output since this evening. Daughter states that the confusion often occurs when her father has a fever. Per patient his only complaint is fever and weakness pt was found in the ed to have elevated esr and infection lt foot with acute renal failure and was admitted Hospital Course Hospital Course: Abnormal Lab Results 03/01/21 11:46: POC Glucose 220 H 03/01/21 17:14: POC Glucose 288 H 03/01/21 20:19: POC Glucose 223 H 03/02/21 05:43: RBC 3.01 L, Hgb 9.5 L, Hct 31.4 L, MCV 104.5 H, MCH 31.6 H, MCHC 30.2 L 03/02/21 05:43: Chloride 110 H, Glucose 187 H D 03/02/21 06:22: POC Glucose 188 H Laboratory Results - last 24 hr 03/01/21 11:46: POC Glucose 220 H 03/01/21 17:14: POC Glucose 288 H 03/01/21 20:19: POC Glucose 223 H 03/02/21 05:43: WBC 5.8, RBC 3.01 L, Hgb 9.5 L, Hct 31.4 L, MCV 104.5 H, MCH 31.6 H, MCHC 30.2 L, RDW 16.5, Plt Count 200, MPV 9.0, Neut % (Auto) 67.7, Lymph % (Auto) 22.9, [place] % (Auto) 5.1, Eos % (Auto) 3.5, Baso % (Auto) 0.7, Neut # (Auto) 3.9, Lymph # (Auto) 1.3, [place] # (Auto) 0.3, Eos # (Auto) 0.2, Baso # (Auto) 0.0 03/02/21 05:43: Sodium 140, Potassium 4.0, Chloride 110 H, Carbon Dioxide 25, Anion Gap 9.0, BUN 14 D, Creatinine 0.90, Estimated Creat Clear 79, Estimated GFR 82, Est GFR ( Amer) 100 D, Glucose 187 H D, Calcium 8.4 03/02/21 06:22: POC Glucose 188 H 03/02/21 08:27: SARS-CoV-2 (PCR) Not detected, Influenza A Untype (PCR) Not detected, Influenza Type B (PCR) Not detected Microbiology 02/26/21 20:15 Blood Blood Culture - Final Escherichia coli 02/26/21 20:15 Blood Blood Culture - Preliminary Escherichia coli Ordering Physician: Dajuan Garcia MD Date of Service: 02/26/21 Procedure(s): XR chest portable Accession Number(s): [id number] cc: Venkat Holder MD; Kevin Hough MD~ PROCEDURE INFORMATION: Exam: XR Chest Exam date and time: 02/26/2021 8:51 PM Age: 75 years old Clinical indication: Other: Weakness TECHNIQUE: Imaging protocol: XR of the chest. Views: 1 view. COMPARISON: CR XR CHEST PORTABLE 02/06/2021 7:47 PM FINDINGS: Airway: Patent Lungs: There are multiple punctate pulmonary parenchymal calcifications, consistent with remote granulomatous organism exposure. Low lung volumes causes crowding of the bronchovascular structures. No acute interstitial or airspace disease. Pleural spaces: Unremarkable. No pleural effusion. No pneumothorax. Heart/Mediastinum: Cardiomediastinal silhouette is magnified due to technique. Bones/joints: Old/healed fracture to the posterior segment of the right 5th rib. No acute skeletal abnormality or aggressive osseous lesion. IMPRESSION: No acute thoracic pathology. Ordering Physician: Dajuan Garcia MD Date of Service: 02/28/21 Procedure(s): CA venous doppler LE BI Accession Number(s): [id number] cc: Dajuan Garcia MD; Danny Shannon MD; Venkat Holder MD~ FINAL REPORT TECHNIQUE: Bilateral lower extremity venous duplex was performed with augmentation and compression. CLINICAL HISTORY: SWELLING BLE,CELLULITIS LT FOOT FINDINGS: Proper flow is seen throughout the deep venous systems bilaterally. There is no evidence of deep venous thrombosis. IMPRESSION: No evidence of deep venous thrombosis. Ordering Physician: Dajuan Garcia MD Date of Service: 03/01/21 Procedure(s): XR chest portable Accession Number(s): [id number] cc: Venkat Holder MD; Heather Dao MD~ PROCEDURE INFORMATION: Exam: XR Chest Exam date and time: 03/01/2021 5:41 PM Age: 75 years old Clinical indication: Device placement; Patient HX: Re-adjustment of picc line. Portable exam #2
[2021-03-02 12:11] LABS: POC Glucose,Bedside 239 (70-110)
== END 2021-03-02 14:25 | DRG 872 ==
LOC: ER 02-27 00:03 → ICU 02-27 10:34
PROVIDERS: Nurse Practitioner Family; Admitting Provider Emergency Medicine; Emergency Provider Emergency Medicine; PCP Family Medicine; Visit Provider Family Medicine
DX: A41.51 Sepsis due to Escherichia coli [E. coli] (principal); L03.116 Cellulitis of left lower limb; L97.429 Non-pressure chronic ulcer of left heel and midfoot with unspecified severity; N17.9 Acute kidney failure, unspecified; R65.20 Severe sepsis without septic shock; E11.628 Type 2 diabetes mellitus with other skin complications; E11.621 Type 2 diabetes mellitus with foot ulcer; E11.40 Type 2 diabetes mellitus with diabetic neuropathy, unspecified; Z79.4 Long term (current) use of insulin; G20 Parkinson's disease; D64.9 Anemia, unspecified; M85.80 Other specified disorders of bone density and structure, unspecified site; E03.9 Hypothyroidism, unspecified; F41.9 Anxiety disorder, unspecified; F32.A Depression, unspecified; K21.9 Gastro-esophageal reflux disease without esophagitis; E78.5 Hyperlipidemia, unspecified; I10 Essential (primary) hypertension; F17.220 Nicotine dependence, chewing tobacco, uncomplicated
CPT/HCPCS: 97597; 36410; 36415; 36569; 70450; 71045; 73700; 80048; 80053; 80202; 81001; 82150; 82962; 83605; 83735; 84145; 84484; 85007; 85025; 85651; 86140; 87040; 87077; 87186; 87506; 93005; 93970; 96365; 96367; 99284; C1751; C9803; J1335; J1956; U0003; U0005

== ENCOUNTER → 2021-06-27 16:57 | Outpatient (CLI) | payer MEDICARE, SELFPAY ==
[2021-06-28 14:35] LABS: Alanine Aminotransferase 8 U/L (12-78); Albumin Level 3.8 g/dl (3.5-5.0); Albumin/Globulin Ratio 1.2 (1.1-1.8); Alkaline Phosphatase 112 U/L (38-126); Anion Gap 12.9 mEq/L (5-15); Aspartate Amino Transferase 30 U/L (17-59); Bilirubin,Total 0.3 mg/dl (0.2-1.3); Blood Urea Nitrogen 15 mg/dl (9-20); Calcium 8.4 mg/dl (8.4-10.2); Carbon Dioxide 32 mmol/L (22.0-30.0); Chloride 97 mmol/L (98-107); Estimated Glomerular Filt Rate 65 ml/min (>60); GFR (African American) 79 ML/MIN (>60); Globulin 3.2 g/dL (1.3-3.2); Glucose 260 mg/dl (74-100); Potassium 3.9 mmoL/L (3.5-5.1); Sodium 138 mmol/L (136-145)
[2021-06-28 15:48] LABS: Hemoglobin A1C 11.1 % (4.0-6.0)
== END ==
PROVIDERS: PCP Family Medicine; Visit Provider Family Medicine
DX: E87.5 Hyperkalemia (principal); E11.8 Type 2 diabetes mellitus with unspecified complications; Z79.4 Long term (current) use of insulin
CPT/HCPCS: 80053; 83036

== ENCOUNTER → 2021-11-25 16:34 | Outpatient (CLI) | payer MEDICARE, SELFPAY ==
[2021-11-25 17:56] LABS: Alanine Aminotransferase 11 U/L (12-78); Albumin Level 3.7 g/dl (3.5-5.0); Albumin/Globulin Ratio 1.2 (1.1-1.8); Alkaline Phosphatase 114 U/L (38-126); Anion Gap 19.5 mEq/L (5-15); Aspartate Amino Transferase 34 U/L (17-59); Bilirubin,Total 0.4 mg/dl (0.2-1.3); Blood Urea Nitrogen 15 mg/dl (9-20); Calcium 7.9 mg/dl (8.4-10.2); Carbon Dioxide 29 mmol/L (22.0-30.0); Chloride 98 mmol/L (98-107); Estimated Glomerular Filt Rate 59 ml/min (>60); GFR (African American) 71 ML/MIN (>60); Globulin 3.1 g/dL (1.3-3.2); Glucose 162 mg/dl (74-100); Potassium 3.5 mmoL/L (3.5-5.1); Sodium 143 mmol/L (136-145); Total Protein,Serum 6.8 g/dl (6.3-8.2)
== END ==
PROVIDERS: PCP Family Medicine; Visit Provider Family Medicine
DX: I10 Essential (primary) hypertension (principal)
CPT/HCPCS: 80053

== ENCOUNTER → 2022-02-24 11:23 | Outpatient (CLI) | payer MEDICARE, OTHER, SELFPAY ==
[2022-02-24 18:46] LABS: Basophils # 0.1 K/mm3 (0-0.2); Basophils % 0.7 % (0.1-2.0); Eosinophils # 0.4 K/mm3 (0.0-0.4); Hematocrit 37.2 % (42.0-52.0); Hemoglobin 12.3 g/dL (14.1-18.0); Lymphocytes # 2.1 K/mm3 (0.7-4.5); Lymphocytes % 21.4 % (10-50); Mean Corpuscular Volume 90.9 fl (80-94); Mean Platelet Volume 9.1 fl (7.4-10.4); Monocytes # 0.6 K/mm3 (0.1-1.0); Monocytes % 5.8 % (1.7-9.3); Neutrophils # 6.8 K/mm3 (1.8-7.8); Neutrophils % 68.2 % (37.0-80.0); Platelet Count 194 K/mm3 (142-424); Red Blood Count 4.09 M/mm3 (4.60-6.20); Red Cell Distribution Width 15.2 % (11.5-17.5); White Blood Count 9.9 K/mm3 (4.8-10.8)
[2022-02-24 19:03] LABS: Alanine Aminotransferase 11 U/L (12-78); Albumin Level 4.2 g/dl (3.5-5.0); Albumin/Globulin Ratio 1.3 (1.1-1.8); Alkaline Phosphatase 87 U/L (38-126); Aspartate Amino Transferase 28 U/L (17-59); Bilirubin,Total 0.5 mg/dl (0.2-1.3); Blood Urea Nitrogen 23 mg/dl (9-20); Calcium 8.9 mg/dl (8.4-10.2); Carbon Dioxide 31 mmol/L (22.0-30.0); Chloride 99 mmol/L (98-107); Estimated Glomerular Filt Rate 54 ml/min (>60); GFR (African American) 65 ML/MIN (>60); Globulin 3.2 g/dL (1.3-3.2); Glucose 219 mg/dl (74-100); Sodium 139 mmol/L (136-145); Total Protein,Serum 7.4 g/dl (6.3-8.2)
[2022-02-24 19:33] LABS: Thyroid Stimulating Hormone 1.65 uIU/mL (0.465-4.68)
[2022-02-24 19:36] LABS: Hemoglobin A1C 9.4 % (4.0-6.0)
[2022-02-24 19:52] LABS: Anion Gap 13.2 mEq/L (5-15); Potassium 4.2 mmoL/L (3.5-5.1)
== END ==
PROVIDERS: PCP Family Medicine; Visit Provider Family Medicine
DX: E11.9 Type 2 diabetes mellitus without complications; Z79.4 Long term (current) use of insulin
CPT/HCPCS: 80053; 83036; 84443; 85025

== ENCOUNTER 2022-06-04 17:27 | Inpatient (IN) | payer MEDICARE, OTHER, SELFPAY ==
[2022-06-04] VITALS (8 sets, daily range): BP systolic 132–172; BP diastolic 56–94; PULSE 59–78; RESP 17–20; TEMP 36.8–37.5; O2SAT 90–98; BMI 27.8; BMI 27.6
--- NOTE | 2022-06-04 17:55 | CT_ITS ---
PROCEDURE INFORMATION: Exam: CT Abdomen And Pelvis With Contrast Exam date and time: 06/04/2022 6:50 PM Age: 76 years old Clinical indication: Abdominal pain; Additional info: Ruq pain TECHNIQUE: Imaging protocol: Computed tomography of the abdomen and pelvis with contrast. Radiation optimization: All CT scans at this facility use at least one of these dose optimization techniques: automated exposure control; mA and/or kV adjustment per patient size (includes targeted exams where dose is matched to clinical indication); or iterative reconstruction. Contrast material: ISOVUE; Contrast volume: 50 ml; Contrast route: IV; REPORTING DATA: Count of CT and Cardiac NM exams in prior 12 months: This patient has received 0 known CTs and 0 known cardiac nuclear medicine studies in the 12 months prior to the current study. COMPARISON: MR ABDOMEN WO CON 02/10/2021 11:01 AM FINDINGS: Lungs: Calcified pulmonary granulomas. Coronary arteries: Coronary artery calcifications. Liver: Normal. No mass. Gallbladder and bile ducts: Moderately distended gallbladder with adjacent stranding. No radiodense gallstones. Pancreas: Normal enhancement. No ductal dilation. Spleen: There are multiple splenic calcifications likely on the basis of prior granulomatous exposure. Adrenal glands: No mass. Kidneys and ureters: Renal cysts measuring up to 18 mm. No hydronephrosis. Stomach and bowel: No obstruction. No mucosal thickening. Appendix: No evidence of appendicitis. Intraperitoneal space: No significant fluid collection. No free air. Vasculature: Calcified aortic atherosclerosis. No aneurysm. Calcified aortic atherosclerosis. No aneurysm. Lymph nodes: No enlarged lymph nodes. Urinary bladder: Urinary bladder wall is thickened measuring 6 mm. Reproductive: Prostate calcifications. Bones/joints: Degenerative changes of the spine. Scoliosis. No fracture. Soft tissues: No soft tissue swelling. IMPRESSION: 1. Moderately distended gallbladder with adjacent stranding concerning for acute cholecystitis. 2. Urinary bladder wall is thickened for which correlation with UA is recommended.
--- NOTE | 2022-06-04 17:57 | HMH.EDABDPAI ---
Discharge Plan Disposition Patient Disposition: Admitted As Inpatient Condition: Fair Prescriptions Prescriptions: No Action amlodipine 5 mg tablet 5 mg PO DAILY insulin glargine [Lantus Solostar U-100 Insulin] 100 unit/mL (3 mL) insulin pen 80 unit SQ HS Qty: 15 10RF insulin aspart U-100 [Novolog FlexPen U-100 Insulin] 100 unit/mL (3 mL) insulin pen 25 unit SQ AC Qty: 15 10RF gabapentin 400 mg capsule 400 mg PO BID PRN (Reason: pain) Qty: 60 5RF losartan 100 mg tablet 100 mg PO DAILY Qty: 90 3RF (DME) FreeStyle Pearl 2 [place] Misc See Rx Instructions .Route Qty: 1 10RF Rx Instructions: As directed (DME) FreeStyle Pearl 2 Sensor Kit See Rx Instructions .Route Qty: 1 10RF Rx Instructions: As directed Trintellix 20 mg tablet See Rx Instructions .ROUTE .COMPLEX Qty: 90 3RF Dose Instruction: TAKE 1 TABLET DAILY Rx Instructions: TAKE 1 TABLET DAILY atorvastatin 40 mg tablet See Rx Instructions .ROUTE .COMPLEX Qty: 90 3RF Dose Instruction: TAKE 1 TABLET AT BEDTIME Rx Instructions: TAKE 1 TABLET AT BEDTIME levothyroxine 25 mcg tablet See Rx Instructions .ROUTE .COMPLEX Qty: 30 11RF Dose Instruction: TAKE 1 TABLET DAILY (NEED APPOINTMENT BEFORE NEXT REFILL) Rx Instructions: TAKE 1 TABLET DAILY (NEED APPOINTMENT BEFORE NEXT REFILL) paroxetine HCl 40 mg tablet See Rx Instructions .ROUTE .COMPLEX Qty: 90 3RF Dose Instruction: TAKE 1 TABLET DAILY Rx Instructions: TAKE 1 TABLET DAILY carvedilol 25 mg tablet See Rx Instructions .ROUTE .COMPLEX Qty: 180 3RF Dose Instruction: TAKE 1 TABLET TWICE A DAY Rx Instructions: TAKE 1 TABLET TWICE A DAY torsemide 20 mg tablet See Rx Instructions .ROUTE .COMPLEX Qty: 90 3RF Dose Instruction: TAKE 1 TABLET DAILY Rx Instructions: TAKE 1 TABLET DAILY Trulicity 3 mg/0.5 mL pen injector 3 mg SQ WEEKLY Qty: 2 10RF doxazosin 4 mg tablet 4 mg PO DAILY Qty: 90 3RF omeprazole 20 mg capsule,delayed release(DR/EC) See Rx Instructions .ROUTE .COMPLEX Qty: 180 3RF Dose Instruction: TAKE 1 CAPSULE TWICE A DAY Rx Instructions: TAKE 1 CAPSULE TWICE A DAY quetiapine 100 mg tablet See Rx Instructions .ROUTE .COMPLEX Qty: 30 11RF Dose Instruction: TAKE 1 TABLET AT BEDTIME Rx Instructions: TAKE 1 TABLET AT BEDTIME trazodone 50 mg tablet See Rx Instructions .ROUTE .COMPLEX Qty: 30 11RF Dose Instruction: TAKE 1 TABLET AT BEDTIME FOR INSOMNIA Rx Instructions: TAKE 1 TABLET AT BEDTIME FOR INSOMNIA allopurinol 300 mg tablet See Rx Instructions .ROUTE .COMPLEX Qty: 90 3RF Dose Instruction: TAKE 1 TABLET DAILY Rx Instructions: TAKE 1 TABLET DAILY carbidopa-levodopa 25-100 mg tablet See Rx Instructions .ROUTE .COMPLEX Qty: 360 3RF Dose Instruction: TAKE 1 TABLET FOUR TIMES A DAY Rx Instructions: TAKE 1 TABLET FOUR TIMES A DAY insulin aspart U-100 100 UNIT/ML solution 0 unit SQ ACHS Rx Instructions: PER SLIDING SCALE aspirin 81 MG tablet,chewable 81 mg PO DAILY Referrals Follow up/Referrals: Venkat Holder MD [Primary Care Provider] - See instructions Clinical Impressions Clinical Impression: Acute cholecystitis, Acute lower UTI Instructions Patient Instructions: DI for Acute Abdominal Pain Discharge ED Provider: Benji Francisco Abdominal Pain HPI General Chief Complaint: Abdominal Pain Stated Complaint: possible galbladder attack Time Seen by Provider: 06/04/22 17:53 Mode of Arrival: Ambulatory Source of Information: Patient Limitations: No Limitations Description of Symptoms (Recalled from ER Triage Doc. by RN): pt to ed c/o BUQ abd pain pt states a prior hx of gallbladder attacks and states this feels similar. pt denies n/v/d. pt states the pain started yesterday. History of Present Illness HPI roger
[2022-06-04 18:01] LABS: Microscopic, Urine URINE MICROSCOPIC (MICROSCOPIC)
[2022-06-04 18:03] LABS: Appearance,Urine CLOUDY (Clear); Bilirubin,Urine Negative (Negative); Blood, Urine 2+ (Negative); Color,Urine YELLOW (Yellow); Glucose,Urine (UA) 3+ (Negative); Ketones,Urine TRACE (Negative); Leukocyte Esterase,Urine 1+ (Negative); Nitrate,Urine Negative (Negative); Protein,Urine 2+ (Negative); Specific Gravity, Urine 1.015 (1.005-1.030); Urobilinogen,Urine 0.2 EU/dl (0.2)
[2022-06-04 18:15] LABS: Bacteria,Urine 2+ /lpf; Squamous Epithelial Cell,Urine Occasional #/hpf (0-5); WBC,Urine TNTC #/hpf (0-3); Yeast,Urine 1+ /lpf
[2022-06-04 18:27] LABS: Basophils % 0.3 % (0.1-2.0); Eosinophils # 0.1 K/mm3 (0.0-0.4); Eosinophils % 1.3 % (0.1-12.0); Hematocrit 37.2 % (42.0-52.0); Hemoglobin 12.4 g/dL (14.1-18.0); Lymphocytes # 1.2 K/mm3 (0.7-4.5); Lymphocytes % 10.9 % (10-50); Mean Corpuscular HGB Conc 33.3 g/dL (31.8-35.4); Mean Corpuscular Hemoglobin 30.2 pg (27.0-31.2); Mean Corpuscular Volume 90.5 fl (80-94); Mean Platelet Volume 7.8 fl (7.4-10.4); Monocytes # 0.8 K/mm3 (0.1-1.0); Neutrophils # 9.1 K/mm3 (1.8-7.8); Neutrophils % 80.6 % (37.0-80.0); Platelet Count 217 K/mm3 (142-424); Red Cell Distribution Width 14.5 % (11.5-17.5); White Blood Count 11.3 K/mm3 (4.8-10.8)
[2022-06-04 18:29] LABS: Chloride 95 mmol/L (98-107); Potassium 3.5 mmoL/L (3.5-5.1); Sodium 133 mmol/L (136-145)
[2022-06-04 18:31] LABS: Alanine Aminotransferase 20 U/L (12-78); Aspartate Amino Transferase 31 U/L (17-59); Blood Urea Nitrogen 14 mg/dl (9-20); Creatinine Clearance Estimated 76 mL/min (50-200); Estimated Glomerular Filt Rate 65 ml/min (>60); GFR (African American) 79 ML/MIN (>60)
[2022-06-04 18:32] LABS: Albumin Level 3.9 g/dl (3.5-5.0); Albumin/Globulin Ratio 1.1 (1.1-1.8); Alkaline Phosphatase 100 U/L (38-126); Anion Gap 10.5 mEq/L (5-15); Calcium 8.6 mg/dl (8.4-10.2); Carbon Dioxide 31 mmol/L (22.0-30.0); Globulin 3.5 g/dL (1.3-3.2); Glucose 380 mg/dl (74-100); Lipase 76 U/L (23-300); Total Protein,Serum 7.4 g/dl (6.3-8.2)
--- NOTE | 2022-06-04 18:54 | PC.NURSE ---
pt is still at ct
--- NOTE | 2022-06-04 19:16 | PC.NURSE ---
Rounded on pt. No needs or complaints at this time. Call light within reach.
--- NOTE | 2022-06-04 19:50 | PC.NURSE ---
Dr. Francisco s/keo RAJAN
--- NOTE | 2022-06-04 19:51 | PC.NURSE ---
Dr. Francisco at bedside s/w pt. Also paged Dr. John per his request.
--- NOTE | 2022-06-04 19:52 | PC.NURSE ---
Dr. Francisco s/w Dr John, on-call gen surgery
--- NOTE | 2022-06-04 19:56 | PC.NURSE ---
Dr. Francisco s/w hospitalist Valentine agrees to admit
[2022-06-04 20:05] LABS: Coronavirus 19, PCR Not Detected (NotDetected); Influenza A, PCR Not Detected (NotDetected); Influenza B, PCR Not Detected (NotDetected)
--- NOTE | 2022-06-04 20:28 | PC.NURSE ---
Patient admitted to [facility] with acute cholecystitis to service of Dr. Chinchilla.
--- NOTE | 2022-06-04 21:16 | PC.NURSE ---
Pt arrived to floor via wheelchair @ 2107
--- NOTE | 2022-06-04 21:45 | EXP.HP ---
History of Present Illness *Admission Date: 06/04/22 *Reason for visit:: Abdominal pain *History of present illness: This is a 76-year-old male with a past medical history of T2DM, recurrent diabetic wound infections, pancreatitis, known gallbladder disease who presents to the emergency department today with complaints of bilateral upper quadrant pain with a known history of gallbladder attacks. He reports this feels similar to previous gallbladder attack. He endorses nausea without vomiting. He denies fever or diarrhea. CT abdomen pelvis was obtained in the emergency department and notable for moderately distended gallbladder with adjacent stranding concerning for acute cholecystitis. Urinary wall also thickening concerning for cystitis. Urinalysis consistent with acute cystitis. Dr. Blount was consulted prior to admission and recommends hospitalization with possible OR tomorrow for acute cholecystitis. He was given Zosyn, medicated with IV fluids and admitted to the hospitalist service for further evaluation management. [facility] Disclaimer: The information contained in this section may have been updated after the patient was seen, as this information can be updated by other users. Social History Smoking Status: Never smoker alcohol intake: never substance use type: denies use current occupational status: unemployed Travel in the last 8 weeks: None household members: family housing: house number of children: 1 caffeine: Yes Review of Systems Review of Systems Review of systems:: pertinent systems reviewed and negative unless documented below *Gastrointestinal Gastrointestinal: Reports abdominal pain, Reports dyspepsia and Reports nausea Meds Home Medications and Allergies Home Medications Medication Instructions Recorded Confirmed Type insulin glargine 100 unit/mL (3 80 unit (0.8 mL) SQ HS #15 mL 02/24/22 06/05/22 Rx mL) subcutaneous pen (Lantus Solostar U-100 Insulin) allopurinol 300 mg tablet 300 mg PO DAILY gout 06/05/22 06/05/22 History atorvastatin 40 mg tablet See Rx Instructions .Route 06/05/22 06/05/22 History .COMPLEX Cholesterol carbidopa 25 mg-levodopa 100 mg 1 tab PO QID Tremors 06/05/22 06/05/22 History tablet carvedilol 25 mg tablet 25 mg PO BID High blood pressure 06/05/22 06/05/22 History gabapentin 400 mg capsule 400 mg PO BIDP PRN pain 06/05/22 06/05/22 History insulin aspart U-100 100 unit/mL 25 unit SQ AC Diabetes 06/05/22 06/05/22 History (3 mL) subcutaneous pen (Novolog FlexPen U-100 Insulin aspart) levothyroxine 25 mcg tablet 25 mcg PO DAILY hypothyroidism 06/05/22 06/05/22 History losartan 100 mg tablet 100 mg PO DAILY High blood pressure 06/05/22 06/05/22 History omeprazole 20 mg capsule,delayed 20 mg PO BID Acid reflux 06/05/22 06/05/22 History release paroxetine HCl 40 mg tablet 40 mg PO DAILY mood 06/05/22 06/05/22 History quetiapine 100 mg tablet 100 mg PO HS Insomnia 06/05/22 06/05/22 History trazodone 50 mg tablet 50 mg PO HS Insomnia 06/05/22 06/05/22 History New Prescriptions to Start Prescriptions: Allergies Allergy/AdvReac Type Severity Reaction Status Date / Time No Known Allergies Allergy Verified 06/05/22 12:29 Exam Data for Last 24 hours Vital signs and Labs for Last 24 Hours: Temp Pulse Resp BP Pulse Ox 98.2 F 66 17 142/68 H 96 06/04/22 21:30 06/04/22 21:30 06/04/22 21:30 06/04/22 21:30 06/04/22 21:30 Laboratory Results - last 24 hr 06/04/22 17:40: Urine Color Yellow, Urine Appearance Cloudy, Urine pH 6.0, Ur Specific [place] 1.015, Urine Protein 2+, Urine Glucose (UA) 3+, Urine Ketones Trace, Urine Blood 2+, Urine Nitrate Negative, Urine Bilirubin Negative, Urine Urobilinogen 0.2, Ur Leukocyte Esterase 1+ A, Urine RBC 5-10, Urine WBC Tntc, Ur Squamous Epith Cells Occasional, Urine Bacteria 2+, Urine Yeast 1+ 06/04/22 18:15: WBC 11.3 H, RBC 4.10 L, Hgb 12.4
[2022-06-04 22:59] LABS: POC Glucose,Bedside 324 (70-110)
[2022-06-05] VITALS (20 sets, daily range): BP systolic 100–169; BP diastolic 68–104; PULSE 58–92; RESP 12–18; TEMP 36.4–43; O2SAT 94–98; BMI 27.6
[2022-06-05 02:34] LABS: POC Glucose,Bedside 296 (70-110)
[2022-06-05 07:11] LABS: Anion Gap 16.2 mEq/L (5-15); Blood Urea Nitrogen 14 mg/dl (9-20); Calcium 8.6 mg/dl (8.4-10.2); Carbon Dioxide 27 mmol/L (22.0-30.0); Chloride 98 mmol/L (98-107); Creatinine Clearance Estimated 84 mL/min (50-200); Estimated Glomerular Filt Rate 73 ml/min (>60); GFR (African American) 88 ML/MIN (>60); Glucose 246 mg/dl (74-100); Potassium 4.2 mmoL/L (3.5-5.1); Sodium 137 mmol/L (136-145)
[2022-06-05 07:50] LABS: Basophils % 0.1 % (0.1-2.0); Eosinophils # 0.1 K/mm3 (0.0-0.4); Hematocrit 38.3 % (42.0-52.0); Hemoglobin 13.1 g/dL (14.1-18.0); Lymphocytes # 1.7 K/mm3 (0.7-4.5); Lymphocytes % 12.7 % (10-50); Mean Corpuscular HGB Conc 34.2 g/dL (31.8-35.4); Mean Corpuscular Hemoglobin 31.1 pg (27.0-31.2); Mean Corpuscular Volume 90.9 fl (80-94); Mean Platelet Volume 9.8 fl (7.4-10.4); Monocytes # 1.4 K/mm3 (0.1-1.0); Monocytes % 10.5 % (1.7-9.3); Neutrophils % 75.7 % (37.0-80.0); Platelet Count 165 K/mm3 (142-424); Red Blood Count 4.21 M/mm3 (4.60-6.20); Red Cell Distribution Width 14.7 % (11.5-17.5); White Blood Count 13.2 K/mm3 (4.8-10.8)
[2022-06-05 08:02] LABS: POC Glucose,Bedside 248 (70-110)
--- NOTE | 2022-06-05 08:48 | EXP.SURG.CON ---
History of Present Illness *Admission Date: 06/04/22 *Reason for visit:: Acute cholecystitis *History of present illness: This is a 76-year-old gentleman seen in consultation from the primary service after presenting to the emergency department with upper abdominal pain. Radiographic evidence consistent with acute cholecystitis noted and the surgical service was consulted. Forwarded from admission H&P: This is a 76-year-old male with a past medical history of T2DM, recurrent diabetic wound infections, pancreatitis, known gallbladder disease who presents to the emergency department today with complaints of bilateral upper quadrant pain with a known history of gallbladder attacks. He reports this feels similar to previous gallbladder attack. He endorses nausea without vomiting. He denies fever or diarrhea. CT abdomen pelvis was obtained in the emergency department and notable for moderately distended gallbladder with adjacent stranding concerning for acute cholecystitis. Urinary wall also thickening concerning for cystitis. Urinalysis consistent with acute cystitis. Dr. Blount ([facility]) was consulted prior to admission and recommends hospitalization with possible OR tomorrow for acute cholecystitis. He was given Zosyn, medicated with IV fluids and admitted to the hospitalist service for further evaluation management. PFSH [facility] Disclaimer: The information contained in this section may have been updated after the patient was seen, as this information can be updated by other users. Social History Smoking Status: Never smoker alcohol intake: never substance use type: denies use current occupational status: unemployed Travel in the last 8 weeks: None household members: family housing: house number of children: 1 caffeine: Yes Meds Home Medications and Allergies Home Medications Medication Instructions Recorded Confirmed Type insulin aspart U-100 100 unit/mL 0 unit SQ ACHS Diabetes 02/06/21 02/24/22 History subcutaneous solution aspirin 81 mg chewable tablet 81 mg PO DAILY Heart disease 02/26/21 02/24/22 History atorvastatin 40 mg tablet See Rx Instructions .Route 03/21/21 02/24/22 Rx .COMPLEX #90 tabs vortioxetine 20 mg tablet See Rx Instructions .Route 03/21/21 02/24/22 Rx (Trintellix) .COMPLEX #90 tabs torsemide 20 mg tablet See Rx Instructions .Route 07/26/21 02/24/22 Rx .COMPLEX #90 tabs amlodipine 5 mg tablet 5 mg PO DAILY 11/25/21 02/24/22 History doxazosin 4 mg tablet 4 mg PO DAILY #90 tabs 12/02/21 02/24/22 Rx dulaglutide 3 mg/0.5 mL 3 mg (0.5 mL) SQ WEEKLY #2 mL 12/02/21 02/24/22 Rx subcutaneous pen injector (Trulicity) insulin aspart U-100 100 unit/mL 25 unit (0.25 mL) SQ AC #15 mL 02/24/22 02/24/22 Rx (3 mL) subcutaneous pen (Novolog FlexPen U-100 Insulin aspart) insulin glargine 100 unit/mL (3 80 unit (0.8 mL) SQ HS #15 mL 02/24/22 02/24/22 Rx mL) subcutaneous pen (Lantus Solostar U-100 Insulin) allopurinol 300 mg tablet 300 mg PO DAILY gout 06/05/22 06/05/22 History carbidopa 25 mg-levodopa 100 mg 1 tab PO QID Tremors 06/05/22 06/05/22 History tablet carvedilol 25 mg tablet 25 mg PO BID High blood pressure 06/05/22 06/05/22 History gabapentin 400 mg capsule 400 mg PO BIDP PRN pain 06/05/22 06/05/22 History levothyroxine 25 mcg tablet 25 mcg PO DAILY hypothyroidism 06/05/22 06/05/22 History losartan 100 mg tablet 100 mg PO DAILY High blood pressure 06/05/22 06/05/22 History omeprazole 20 mg capsule,delayed 20 mg PO BID Acid reflux 06/05/22 06/05/22 History release paroxetine HCl 40 mg tablet 40 mg PO DAILY mood 06/05/22 06/05/22 History quetiapine 100 mg tablet 100 mg PO HS Insomnia 06/05/22 06/05/22 History trazodone 50 mg tablet 50 mg PO HS Insomnia 06/05/22 06/05/22 History New Prescriptions to Start Prescriptions:
[2022-06-05 11:36] LABS: POC Glucose,Bedside 247 (70-110)
--- NOTE | 2022-06-05 13:11 | EXP.PN ---
Subjective *Date: 06/05/22 *Time: 13:11 Interval history: Date of service June 05, 2022 The patient reports ongoing right upper quadrant pain. Nursing staff report that he remains afebrile with stable vital signs and saturating appropriately on room air. I am accompanied by his nurse Lillie for his evaluation. The patient reports that he lives with his daughter. Today he is reporting pain rated as an 8 on a 1-10 pain scale. Surgery has evaluated him and is recommending surgery. He is tolerating his IV antibiotic with no adverse events. We have reviewed, discussed and I personally interpreted his labs as follows: CBC with white blood cell count 13.2, hemoglobin stable at 13.1, hematocrit 38.3, platelet count 165, sodium 137, potassium 4.2, chloride 98, BUN 14, creatinine 1.0, glucose trend greater than 200. CT of the abdomen and pelvis identifies distended gallbladder with stranding consistent with acute cholecystitis. Exam Data for Last 24 hours Vital signs and Labs for Last 24 Hours: Temp Pulse Resp BP Pulse Ox 98.9 F 58 L 18 149/71 H 95 06/05/22 08:00 06/05/22 08:00 06/05/22 08:00 06/05/22 08:00 06/05/22 08:00 Laboratory Results - last 24 hr 06/04/22 17:40: Urine Color Yellow, Urine Appearance Cloudy, Urine pH 6.0, Ur Specific [place] 1.015, Urine Protein 2+, Urine Glucose (UA) 3+, Urine Ketones Trace, Urine Blood 2+, Urine Nitrate Negative, Urine Bilirubin Negative, Urine Urobilinogen 0.2, Ur Leukocyte Esterase 1+ A, Urine RBC 5-10, Urine WBC Tntc, Ur Squamous Epith Cells Occasional, Urine Bacteria 2+, Urine Yeast 1+ 06/04/22 18:15: WBC 11.3 H, RBC 4.10 L, Hgb 12.4 L, Hct 37.2 L, MCV 90.5, MCH 30.2, MCHC 33.3, RDW 14.5, Plt Count 217, MPV 7.8, Neut % (Auto) 80.6 H, Lymph % (Auto) 10.9, [place] % (Auto) 7.0, Eos % (Auto) 1.3, Baso % (Auto) 0.3, Neut # (Auto) 9.1 H, Lymph # (Auto) 1.2, [place] # (Auto) 0.8, Eos # (Auto) 0.1, Baso # (Auto) 0.0 06/04/22 18:15: Sodium 133 L, Potassium 3.5, Chloride 95 L, Carbon Dioxide 31 H, Anion Gap 10.5, BUN 14, Creatinine 1.10, Estimated Creat Clear 76, Estimated GFR 65, Est GFR ( Amer) 79, Glucose 380 H, Calcium 8.6, Total Bilirubin 1.0, AST 31, ALT 20, Alkaline Phosphatase 100, Total Protein 7.4, Albumin 3.9, Globulin 3.5 H, Albumin/Globulin Ratio 1.1, Lipase 76 06/04/22 20:00: SARS-CoV-2 (PCR) Not detected, Influenza A Untype (PCR) Not detected, Influenza Type B (PCR) Not detected 06/04/22 22:35: POC Glucose 324 H* 06/05/22 02:27: POC Glucose 296 H 06/05/22 06:43: WBC 13.2 H, RBC 4.21 L, Hgb 13.1 L, Hct 38.3 L, MCV 90.9, MCH 31.1, MCHC 34.2, RDW 14.7, Plt Count 165, MPV 9.8, Neut % (Auto) 75.7, Lymph % (Auto) 12.7, [place] % (Auto) 10.5 H, Eos % (Auto) 1.0, Baso % (Auto) 0.1, Neut # (Auto) 10.0 H, Lymph # (Auto) 1.7, [place] # (Auto) 1.4 H, Eos # (Auto) 0.1, Baso # (Auto) 0.0 06/05/22 06:43: Sodium 137, Potassium 4.2, Chloride 98, Carbon Dioxide 27, Anion Gap 16.2 H, BUN 14, Creatinine 1.00, Estimated Creat Clear 84, Estimated GFR 73, Est GFR ( Amer) 88, Glucose 246 H D, Calcium 8.6 06/05/22 07:51: POC Glucose 248 H 06/05/22 11:26: POC Glucose 247 H I & O for Last 24 hours: Intake & Output 06/02/22 06/03/22 06/04/22 06/05/22 23:59 23:59 23:59 23:59 Intake Total 0 / 0 Output Total 3 Balance -3 / -3 Weight 92.669 kg 92.669 kg Constitutional Constitutional: no acute distress, chronically ill appearing and cooperative *Routine HEENT Exam Head: Present normocephalic Eye: Present EOMI and PERRL ENT: Present mucous membranes moist *Routine Neck Exam Neck: Present supple and full ROM; Absent JVD *Routine Respiratory Exam Respiratory: Present rhonchi and normal respiratory effort *Routine Cardiovascular Exam Cardiovascular: Present RRR; Absent JVD *Routine Abdominal Exam Abdominal: Present soft, normoactive bowel sounds and tenderness; Absent distended, rebound or guarding *Routine Extremities Exam Extremities: Present full ROM and pulses intact; Absent cyanosis, clubbi
--- NOTE | 2022-06-05 16:52 | EXP.ANES.CKL ---
[facility] Disclaimer: The information contained in this section may have been updated after the patient was seen, as this information can be updated by other users. Social History Smoking Status: Never smoker alcohol intake: never substance use type: denies use current occupational status: unemployed Travel in the last 8 weeks: None household members: family housing: house number of children: 1 caffeine: Yes [facility] Anesthesia Checklist Patient Identification Patient Identification: Verbal (Name & ) Structural Data Admitted From: Inpatient Planned Operative Procedure/s: chelsy hutchison Consent for Planned Operative Procedure(s) Verified: Yes Airway Assessment C-Spine Mobility Assessed: Yes TMJ Mobility Assessed: Yes Dentition: Edentulous Neurological Assessment Level of Consciousness: Awake, Alert and Appropriate Anesthesia Plan Anesthesia Risk discussed: Yes Anesthesia Plan: Verified ASA Class: III Anesthesia Type: General
--- NOTE | 2022-06-05 18:14 | P.OP_ITS ---
Date of procedure: 06/05/22 Pre-op Diagnosis:: Acute calculus cholecystitis Post-op Diagnosis:: Same Procedure performed:: Laparoscopic cholecystectomy Surgeon:: Elijah John MD TECHNOLOGY OFFICER:: Pillo Wall Anesthesia: [employer] Estimated blood loss (mL): 25 Operative findings:: Gangrenous cholecystitis Hydropic gallbladder Sludge and stones throughout gallbladder Dome-down approach utilized #10 Luigi-Bourne drains (x2) placed in gallbladder fossa Operative note:: After informed consent was obtained, the patient was taken to the operating room and placed in the supine position. General anesthesia was induced and the abdo men was prepped and draped in a sterile fashion. After infiltration with local anesthetic an infraumbilical incision was made. A Veress needle was placed in position. The abdomen was insufflated. A 5 mm optical trocar was placed in position. Under direct visualization, a 12 mm trocar was placed in the subxiphoid position and 2 additional 5 mm trocars were placed in the right upper quadrant. The gallbladder showed signs of patchy gangrenous changes and hydrops. Harmonic linden were utilized to create a small opening along the dome of the gallbladder in order to relieve tension. Hydropic fluid followed by complex stones/sludge was aspirated. A moderate degree of spillage noted. The spillage was evacuated to the degree possible with irrigation and suctioning. The gallbladder was elevated up and over the liver margin. Severe soft tissue thickening and gangrenous changes were noted throughout. Dissection was very difficult. The decision was made to proceed with a dome down approach . A window was made at the infundibulum behind the gallbladder. Harmonic linden were then utilized to separate the gallbladder from the liver margin. Endoloops (x2) were then placed at the infundibulum. Above this site the gallbladder was transected with harmonic linden and placed in the retrieval bag before being removed through the subxiphoid trocar site. The right upper quadrant was thoroughly irrigated. No active bleeding or bile leak was noted. 2 #10 flat Luigi-Bourne drains were placed in the gallbladder fossa and exited through the 5 mm right upper abdominal wall trocar sites. The drains were secured with interrupted nylon suture. Fascia at the subxiphoid trocar site was reapproximated utilizing 0 Ethibond. The remaining trocars were removed. All wounds were irrigated and skin was closed with 4-0 Monocryl in a subcuticular fashion. Steri-Strips were applied. The patient's anesthetic agents were reversed and extubation was completed prior to transfer to recovery in stable condition. Condition: stable Disposition: PACU Specimens:: Gallbladder Complications:: No immediate
--- NOTE | 2022-06-05 18:27 | EXP.ANES.I ---
[facility] Anesthesia Record Part I Anesthesia Record I Intake, IV Amount: 1,800 Estimated blood loss (mL): 0 Urine output (mL): 0 Blood Pressure: 149/104 SaO2: 96 Pulse Rate: 83 Respiratory Rate: 12 Temperature: 97.8 F Patient is:: Awake and Stable Stable to PACU at:: 18:25
--- NOTE | 2022-06-05 19:01 | SUR.PHASEI ---
[id number]- detailed report called to dinesh lopez on [facility] floor 1899- pt left in stable condition with dinesh lopez. All VSS, dressings, cdi. Bed in lowest position with side rails up.
[2022-06-05 19:07] LABS: POC Glucose,Bedside 236 (70-110)
[2022-06-05 19:55] LABS: POC Glucose,Bedside 294 (70-110)
[2022-06-06] VITALS (7 sets, daily range): BP systolic 113–183; BP diastolic 72–90; PULSE 60–88; RESP 16–20; TEMP 36.4–37.5; O2SAT 95–98; BMI 27.6
--- NOTE | 2022-06-06 03:28 | PC.NURSE ---
Pt. had his iron drains x2 emptied last night with 50 ml in each iron. He is up with assist times one to the restroom and has a bed alarm on for his fall risk. Hasn't tried to get up this morning. Got a pain pill once during the beginning of the shift.
--- NOTE | 2022-06-06 05:15 | PC.NURSE ---
Zero uop recorded and bladder scan shows > 500. Attempted catheter with no urine. Used coude f/c in and out with 550 ml of urine removed.
[2022-06-06 05:48] LABS: POC Glucose,Bedside 305 (70-110)
--- NOTE | 2022-06-06 07:22 | EXP.ACUTE.PN ---
Subjective *Date: 06/06/22 *Time: 15:59 Interval history: Patient tolerated surgery last night without event. Still has [address] Answering questions appropriately but slowly on exam this morning. Stable on room air. Afebrile. NPO. Denies chest pain, shortness of breath. Complains of abdominal pain, worse on the right with palpation Medical Exam Vital signs and Labs for Last 24 Hours: Vital Signs Temp Pulse Pulse Resp BP BP Pulse Ox 06/06/22 04:00 98.1 F 88 16 181/85 H 98 06/06/22 01:45 97.6 F 80 16 113/72 95 06/06/22 00:45 97.8 F 79 16 114/77 95 06/05/22 23:45 97.7 F 77 16 116/69 94 L 06/05/22 22:45 97.7 F 80 16 123/71 94 L 06/05/22 21:45 97.7 F 80 16 109/75 L 94 L 06/05/22 21:15 97.8 F 82 16 100/70 L 94 L 06/05/22 20:45 97.9 F 85 16 118/69 94 L 06/05/22 20:15 97.7 F 90 16 114/68 95 06/05/22 19:45 97.8 F 92 H 16 111/78 94 L 06/05/22 19:30 97.8 F 91 H 17 125/71 95 06/05/22 19:15 97.8 F 75 18 143/72 H 94 L 06/05/22 21:13 97 06/05/22 19:00 97.8 F 83 18 137/82 94 L 06/05/22 18:55 97.5 F L 82 12 155/74 H 96 06/05/22 18:45 81 12 159/69 H 95 06/05/22 18:35 82 12 155/70 H 95 06/05/22 18:25 97.6 F 84 12 149/104 H 95 06/05/22 15:59 98.1 F 60 16 169/87 H 94 L 06/05/22 08:00 18 06/05/22 08:00 98.9 F 58 L 18 149/71 H 95 06/05/22 18:28 97.8 F 83 12 149/104 H Intake and Output 06/05/22 06/05/2206/06/23 15:59 23:59 07:59 Intake Total 0 / 1850 1850 / 1850 800 / 800 Output Total 350 / 453 100 / 453 600 / 600 Balance -350 / 1397 1750 / 1397 200 / 200 Intake: Intake, Oral Amount 0 / 0 Intake, Total IV Amount 1850 / 1850 800 / 800 0.9 % Sodium Chloride 1000ML 1, 800 / 800 000 ml @ 100 mls/hr IV .Q10H [facility] Rx#:[id number] Pipercillin/Tazo 3.375 gm In 0. 50 / 50 9 % Sodium Chloride 50 ml @ 100 mls/hr IV Q8H [facility] Rx#:[id number] Output: Output, Urine Amount 350 / 353 550 / 550 Output, Drainage Amount 100 / 100 50 / 50 Abdomen 100 / 100 50 / 50 Other: Number of Unmeasured Voids 1 Weight 92.667 kg Patient Weight 06/06/22 23:59 Weight 92.667 kg Laboratory Results - last 24 hr 06/05/22 06:43: WBC 13.2 H, RBC 4.21 L, Hgb 13.1 L, Hct 38.3 L, MCV 90.9, MCH 31.1, MCHC 34.2, RDW 14.7, Plt Count 165, MPV 9.8, Neut % (Auto) 75.7, Lymph % (Auto) 12.7, [place] % (Auto) 10.5 H, Eos % (Auto) 1.0, Baso % (Auto) 0.1, Neut # (Auto) 10.0 H, Lymph # (Auto) 1.7, [place] # (Auto) 1.4 H, Eos # (Auto) 0.1, Baso # (Auto) 0.0 06/05/22 07:51: POC Glucose 248 H 06/05/22 11:26: POC Glucose 247 H 06/05/22 18:51: POC Glucose 236 H 06/05/22 19:48: POC Glucose 294 H 06/06/22 05:41: POC Glucose 305 H* I & O for Labs for Last 24 Hours: Intake & Output 06/03/22 06/04/22 06/05/22 06/06/22 23:59 23:59 23:59 23:59 Intake Total 1850 / 1850 800 / 800 Output Total 453 / 453 600 / 600 Balance 1397 / 1397 200 / 200 Weight 92.669 kg 92.669 kg 92.667 kg Microbiology Reports for the Last 24 Hours: Microbiology 06/04/22 17:40 Urine,Clean Catch Urine Culture - Preliminary NO GROWTH AFTER 24 HOURS Constitutional: Present no acute distress, average body habitus and chronically ill appearing Head: Present atraumatic and normocephalic ENT: Present normal exam Neck: Present normal inspection Respiratory: Present normal respiratory effort; Absent rhonchi, wheezes or crackles Cardiac: Present Reg Rate and Rhythm GI: Present soft, tenderness (Diffuse, quite tender in right upper quadrant. JPs at surgical site right upper quadrant with serosanguineous drainage) and normal bowel sounds; Absent distention Extremities: Present normal inspection and full ROM Skin: Present intact; Absent erythema Neuro: Present Grossly Intact, alert, awake and moves all extremities Assessment and Plan *Asse
[2022-06-06 07:30] LABS: Basophils % 0.1 % (0.1-2.0); Eosinophils # 0.1 K/mm3 (0.0-0.4); Eosinophils % 0.4 % (0.1-12.0); Hematocrit 37.6 % (42.0-52.0); Lymphocytes # 0.7 K/mm3 (0.7-4.5); Lymphocytes % 5.1 % (10-50); Mean Corpuscular Hemoglobin 30.3 pg (27.0-31.2); Mean Corpuscular Volume 94.5 fl (80-94); Mean Platelet Volume 8.2 fl (7.4-10.4); Monocytes # 0.6 K/mm3 (0.1-1.0); Monocytes % 4.6 % (1.7-9.3); Neutrophils # 11.9 K/mm3 (1.8-7.8); Neutrophils % 89.8 % (37.0-80.0); Platelet Count 151 K/mm3 (142-424); Red Blood Count 3.97 M/mm3 (4.60-6.20); Red Cell Distribution Width 14.7 % (11.5-17.5); White Blood Count 13.2 K/mm3 (4.8-10.8)
--- NOTE | 2022-06-06 07:32 | EXP.SURG.PN ---
Subjective Patient reports: feels better Exam Data for Last 24 hours Vital signs and Labs for Last 24 Hours: Temp Pulse Resp BP Pulse Ox 98.1 F 88 16 181/85 H 98 06/06/22 04:00 06/06/22 04:00 06/06/22 04:00 06/06/22 04:00 06/06/22 04:00 Laboratory Results - last 24 hr 06/05/22 06:43: WBC 13.2 H, RBC 4.21 L, Hgb 13.1 L, Hct 38.3 L, MCV 90.9, MCH 31.1, MCHC 34.2, RDW 14.7, Plt Count 165, MPV 9.8, Neut % (Auto) 75.7, Lymph % (Auto) 12.7, [place] % (Auto) 10.5 H, Eos % (Auto) 1.0, Baso % (Auto) 0.1, Neut # (Auto) 10.0 H, Lymph # (Auto) 1.7, [place] # (Auto) 1.4 H, Eos # (Auto) 0.1, Baso # (Auto) 0.0 06/05/22 07:51: POC Glucose 248 H 06/05/22 11:26: POC Glucose 247 H 06/05/22 18:51: POC Glucose 236 H 06/05/22 19:48: POC Glucose 294 H 06/06/22 05:41: POC Glucose 305 H* I & O for Last 24 hours: Intake & Output 06/03/22 06/04/22 06/05/22 06/06/22 11:59 11:59 11:59 11:59 Intake Total 0 / 0 2650 / 2650 Output Total 3 / 3 1050 / 1050 Balance -3 / -3 1600 / 1600 Weight 204 lb 4.803 oz 204 lb 4.732 oz Microbiology Reports for the Last 24 Hours: Microbiology 06/04/22 17:40 Urine,Clean Catch Urine Culture - Preliminary Constitutional Constitutional: no acute distress *Routine Respiratory Exam Respiratory: Absent respiratory distress *Routine Cardiovascular Exam Cardiovascular: Absent tachycardia *Routine Abdominal Exam Abdominal: Present soft Comments: Post-operative tenderness Progress Note: A&P Assessment and plan (1) Acute cholecystitis: Problem details: Gangrenous hydrops Status: Acute Assessment and plan: Overall, doing well status post laparoscopic cholecystectomy. Continue antibiotics for now [facility] Overall management as per primary service (2) Acute lower UTI: Status: Acute (3) Diabetes mellitus: Status: Acute (4) Parkinson disease: Status: Chronic (5) Hypothyroidism: Status: Acute
[2022-06-06 07:33] LABS: MANUAL DIFFERENTIAL MANUAL DIFFERENTIAL (MANUAL DIFF)
[2022-06-06 07:40] LABS: Chloride 97 mmol/L (98-107); Potassium 3.8 mmoL/L (3.5-5.1); Sodium 138 mmol/L (136-145)
[2022-06-06 07:43] LABS: Anion Gap 15.8 mEq/L (5-15); Blood Urea Nitrogen 15 mg/dl (9-20); Calcium 7.9 mg/dl (8.4-10.2); Carbon Dioxide 29 mmol/L (22.0-30.0); Creatinine Clearance Estimated 84 mL/min (50-200); Estimated Glomerular Filt Rate 73 ml/min (>60); GFR (African American) 88 ML/MIN (>60); Glucose 283 mg/dl (74-100)
[2022-06-06 08:00] LABS: Procalcitonin 4.06 ng/mL (0.0-2.0)
[2022-06-06 08:21] LABS: Lymphocytes % 7 % (10-50); Monocytes % 2 % (2-9); Neutrophils % 91 % (42-76); Total Cells Counted 100
[2022-06-06 08:22] LABS: Platelet Estimate Normal; RBC Morphology Normal
[2022-06-06 10:17] LABS: POC Glucose,Bedside 263 (70-110)
--- NOTE | 2022-06-06 10:35 | HMH.PTEV ---
Physical Therapy Evaluation Rehab PT IP Evaluation Start: 06/06/22 07:00 Freq: ONCE Status: Active Protocol: Document 06/06/22 09:45 PHORJUSTINE (Rec: 06/06/22 10:35 PHORNE [id number]) Subjective/History History History 76 yowm adm to [facility] with cholecystitis, now S/P significant LAP CCY with [address]. He appears somewhat lethargic and baseline is unable to be assessed as no family is present. He does report he lives with daughter, 3-4 steps to enter the home, and he uses a cane for ambulation at baseline. Subjective Subjective Currently he c/o abdominal pain as expected post-op. Slow to answer questions, but does appear oriented to self and place. MIN difficulty with command following. Rehab PT IP Eval Objective Appearance Patient Behavior Appropriate,Distractible Patient Orientation Person,Place Difficulty following instructions mild Speech Pattern Clear,Soft-Spoken Ambulation Patient Able to Ambulate Yes Ambulation Observation IP General Gait Pattern Observation Shuffling Step Ambulation Distance (feet) 4 Ambulation Assistive Device Straight Cane Ambulation Ability Minimal x 1 (25% assist) Balance Ability to Arise Able, uses arms to help Sitting Balance Steady, safe Standing Balance Steady, wide stance Dynamic Sitting Balance Ability Good Dynamic Standing Balance Ability Fair Transfers Bed Transfer Ability Minimal x 1 (25% assist) Chair Transfer Ability Minimal x 1 (25% assist) Sit to Stand Bed Transfer Ability Minimal x 1 (25% assist) Sit to Stand Chair Transfer Ability Minimal x 1 (25% assist) ROM All Extremities PT ROM Status WFL MMT All Extremities PT MMT WFL Abnormal MMT Grade grossly 3/5 Rehab PT IP prob,goals,plan Problems Date of Evaluation: 06/06/22 PT IP Problems Bed Mobility,Transfers,Gait Rehab Potential Rehab Potential Good Plan PT Intervention Plan Bed Mobility,Transfers,Gait, Therapeutic Exercise PT Plan Frequency Daily Duration LOS Discharge Goals Bed Transfer Ability Contact Guard/Hand Hold Sit to Stand Chair Transfer Ability
--- NOTE | 2022-06-06 10:48 | HMH.OTEV ---
OT Inpatient Evaluation Rehab OT IP Evaluation Start: 06/06/22 07:00 Freq: ONCE Status: Active Protocol: Document 06/06/22 10:44 [facility] (Rec: 06/06/22 10:47 [facility] [id number]) Rehab OT IP Assessment Subjective History 76 yowm adm to [facility] with cholecystitis, now S/P significant LAP CCY with [address]. He appears somewhat lethargic and baseline is unable to be assessed as no family is present. He does report he lives with daughter, 3-4 steps to enter the home, and he uses a cane for ambulation at baseline. He also claims he is independent with ADLs such as dressing, bathing, and feeding. However he reports his daughter completes IADLs for him. He also claims he still drives. Subjective I think so. Slow to answer questions, but does appear oriented to self and place. MIN difficulty with command following. Objective Patient Orientation Person,Birthday Upper Extremity Gross ROM WFL Bed Mobility bed mobility-scooting,bed mobility - supine/sit,bed mobility - rolling Assist Level Minimal x 1 (25% assist) Transfer Training Sit/Stand Transfer Assist Level Minimal x 1 (25% assist) Chair Transfer Ability Minimal x 1 (25% assist) Chair Transfer Technique Sit to/from Ambulatory Chair Transfer Assistive Devices Straight Cane Rehab OT IP prob,goals,plan Problems Date of Evaluation: 06/06/22 OT IP Problems Bed Mobility,Transfers,Balance ,Self care,Safety Rehab Potential Rehab Potential Good Equipment Needs Assistive Devices Straight Cane Plan OT intervention Plan Bed Mobility,Transfers,Balance ,Self care,Safety,Therapeutic Exercise OT Plan Frequency BID Duration LOS Discharge Goals Bed Mobility Ability Standby Assistance Sit to Stand Chair Transfer Ability Contact Guard/Hand Hold Chair Transfer Ability Contact Guard/Hand Hold Chair Transfer Technique Sit to/from
--- NOTE | 2022-06-06 13:11 | SW/DCPLANNER ---
Addendum entered by Guerline Angel 06/08/22 08:15: The plan for this patient is to discharge to [facility] today: I have updated [facility]ia [facility]. Addendum entered by Guerline Angel 06/06/22 13:54: [facility]ia [facility]/ [facility] stated that she can accept this patient once he is medically stable for discharge. Original Note: I spoke with patient and his daughter regarding plans once medically stable for discharge. PT/OT evaluated patient and recommended SNF level of care. Daughter stated that patient has been to [facility] in the past and would prefer patient return their if SNF is needed at discharge. Discharge date is unknown at this time.
[2022-06-06 18:25] LABS: POC Glucose,Bedside 274 (70-110)
--- NOTE | 2022-06-06 18:36 | PC.NURSE ---
PT A&O TO SELF THIS SHIFT. VERY SLOW TO ANSWER AND NEEDS REDIRECTION. PT DAUGHTER STATES THAT THIS IS HOW HE GETS WHEN HE FEELS BAD. UP TO BATHROOM X2 ASSIST. 2 BEATRICE DRAINS PRESENT, 100ML OUTPUT THIS SHIFT. PT HAS C/O PAIN X2, TX PER MAR. HASN'T HAD MUCH OF AN APPETITE. NO OTHER NEEDS NOTED AT THIS TIME, VSS.
[2022-06-06 21:27] LABS: POC Glucose,Bedside 225 (70-110)
[2022-06-07] VITALS (7 sets, daily range): BP systolic 100–174; BP diastolic 52–100; PULSE 53–82; RESP 16–18; TEMP 36.4–37.7; O2SAT 96–99; BMI 27.6
--- NOTE | 2022-06-07 03:49 | PC.NURSE ---
Pt. is aox2 with some slowness and confusion, up with assistance times2 to the restroom, iron drains times 2 with 20ml out his shift, bed alarm on.
[2022-06-07 05:15] LABS: POC Glucose,Bedside 213 (70-110)
[2022-06-07 06:57] LABS: Basophils % 0.1 % (0.1-2.0); Eosinophils % 0.2 % (0.1-12.0); Hematocrit 36.9 % (42.0-52.0); Hemoglobin 12.1 g/dL (14.1-18.0); Lymphocytes # 1.2 K/mm3 (0.7-4.5); Lymphocytes % 9.2 % (10-50); Mean Corpuscular HGB Conc 32.8 g/dL (31.8-35.4); Mean Corpuscular Hemoglobin 30.7 pg (27.0-31.2); Mean Corpuscular Volume 93.7 fl (80-94); Mean Platelet Volume 8.4 fl (7.4-10.4); Monocytes # 0.8 K/mm3 (0.1-1.0); Neutrophils # 10.9 K/mm3 (1.8-7.8); Neutrophils % 84.5 % (37.0-80.0); Platelet Count 131 K/mm3 (142-424); Red Blood Count 3.93 M/mm3 (4.60-6.20); Red Cell Distribution Width 14.7 % (11.5-17.5); White Blood Count 12.9 K/mm3 (4.8-10.8)
[2022-06-07 07:31] LABS: Chloride 99 mmol/L (98-107); Potassium 3.4 mmoL/L (3.5-5.1); Sodium 139 mmol/L (136-145)
[2022-06-07 07:33] LABS: Alanine Aminotransferase 10 U/L (12-78); Aspartate Amino Transferase 55 U/L (17-59); Blood Urea Nitrogen 21 mg/dl (9-20); Creatinine Clearance Estimated 84 mL/min (50-200); Estimated Glomerular Filt Rate 73 ml/min (>60); GFR (African American) 88 ML/MIN (>60)
[2022-06-07 07:34] LABS: Albumin Level 2.9 g/dl (3.5-5.0); Albumin/Globulin Ratio 0.9 (1.1-1.8); Alkaline Phosphatase 142 U/L (38-126); Anion Gap 15.4 mEq/L (5-15); Calcium 7.8 mg/dl (8.4-10.2); Carbon Dioxide 28 mmol/L (22.0-30.0); Globulin 3.1 g/dL (1.3-3.2); Glucose 189 mg/dl (74-100); Magnesium 1.4 mg/dl (1.6-2.3)
--- NOTE | 2022-06-07 08:15 | P.PN_ITS ---
Subjective Patient reports: no new complaints Exam Data for Last 24 hours Vital signs and Labs for Last 24 Hours: Temp Pulse Resp BP Pulse Ox 98.2 F 56 L 17 173/76 H 96 06/07/22 04:00 06/07/22 04:00 06/07/22 04:00 06/07/22 04:00 06/07/22 04:00 Laboratory Results - last 24 hr 06/06/22 07:12: Total Counted 100, Neutrophils % (Manual) 91 H, Lymphocytes % (Manual) 7 L, Monocytes % (Manual) 2, Platelet Estimate Normal, RBC Morphology Normal 06/06/22 10:04: POC Glucose 263 H 06/06/22 16:33: POC Glucose 274 H 06/06/22 21:20: POC Glucose 225 H 06/07/22 05:08: POC Glucose 213 H 06/07/22 06:24: WBC 12.9 H, RBC 3.93 L, Hgb 12.1 L, Hct 36.9 L, MCV 93.7, MCH 30.7, MCHC 32.8, RDW 14.7, Plt Count 131 L, MPV 8.4, Neut % (Auto) 84.5 H, Lymph % (Auto) 9.2 L, [place] % (Auto) 6.0, Eos % (Auto) 0.2, Baso % (Auto) 0.1, Neut # (Auto) 10.9 H, Lymph # (Auto) 1.2, [place] # (Auto) 0.8, Eos # (Auto) 0.0, Baso # (Auto) 0.0 06/07/22 06:24: Sodium 139, Potassium 3.4 L, Chloride 99, Carbon Dioxide 28, Anion Gap 15.4 H, BUN 21 H D, Creatinine 1.00, Estimated Creat Clear 84, Estima onel GFR 73, Est GFR ( Amer) 88, Glucose 189 H D, Calcium 7.8 L, Magnesium 1.4 L, Total Bilirubin 1.0, AST 55 D, ALT 10 L D, Alkaline Phosphatase 142 H, Total Protein 6.0 L, Albumin 2.9 L, Globulin 3.1, Albumin/Globulin Ratio 0.9 L I & O for Last 24 hours: Intake & Output 06/04/22 06/05/22 06/06/22 06/07/22 11:59 11:59 11:59 11:59 Intake Total 0 / 0 2890 / 2890 2559 / 2559 Output Total 3 / 3 1050 / 1050 400 / 400 Balance -3 / -3 1840 / 1840 2159 / 2159 Weight 204 lb 4.803 oz 204 lb 4.485 oz 204 lb 4.485 oz Microbiology Reports for the Last 24 Hours: Microbiology 06/04/22 17:40 Urine,Clean Catch Urine Culture - Preliminary Constitutional Constitutional: no acute distress *Routine Cardiovascular Exam Cardiovascular: Absent tachycardia *Routine Abdominal Exam Comments: Dressings intact. No spreading cellulitis. Serosanguineous Luigi-Bourne output. Progress Note: A&P Assessment and plan (1) Acute cholecystitis: Problem details: Gangrenous hydrops Status: Acute Assessment and plan: Overall, doing well status post laparoscopic cholecystectomy. Continue Luigi-Bourne drainage Complete course of antibiotics OK from surgical standpoint for discharge and close outpatient follow-up
--- NOTE | 2022-06-07 09:17 | EXP.ANES.II ---
[facility] Anesthesia Record Part II Anesthesia Record Part II Discharge Time: 18:55 Destination: [facility] Day [facility] (OP Surgery) PACU nurse assessment reviewed?: Yes Patient Condition:: Good Anesthesia Complications:: None Swallowing reflex intact?: Yes Cyanosis?: No Blood Pressure: 155/74 Pulse Rate: 82 Temperature: 97.5 F Mental Status: Alert & Oriented Pain level:: 0 Nausea and/or vomitting:: None Intake, IV Amount: 0
[2022-06-07 12:41] LABS: POC Glucose,Bedside 172 (70-110)
--- NOTE | 2022-06-07 14:21 | EXP.ACUTE.PN ---
Subjective *Date: 06/07/22 *Time: 14:21 Interval history: Patient denies any chest pain or shortness of breath today. Still having some mild abdominal discomfort. Mainly right upper quadrant. Tolerating p.o. liquids. Has not had a bowel movement since his surgery. Active bowel sounds, feels gurgling but denies passing flatus. No nausea or vomiting. Medical Exam Vital signs and Labs for Last 24 Hours: Vital Signs Temp Pulse Pulse Resp BP BP Pulse Ox 06/07/22 12:00 98.1 F 53 L 18 100/79 L 98 06/07/22 08:00 99.2 F 64 18 149/100 H 96 06/07/22 04:00 98.2 F 56 L 17 173/76 H 96 06/07/22 00:00 98.8 F 56 L 16 141/64 H 96 06/06/22 20:00 97 06/06/22 20:00 99.5 F 60 17 148/75 H 96 06/06/22 16:00 97.8 F 60 19 183/74 H 95 06/07/22 09:18 97.5 F L 82 155/74 H Intake and Output 06/06/22 06/07/22 06/07/22 23:59 07:59 15:59 Intake Total 1649 / 2749 850 / 1210 360 / 1210 Output Total 100 / 700 300 / 800 500 / 800 Balance 1549 / 2049 550 / 410 -140 / 410 Intake: Intake, Oral Amount 360 / 660 360 / 360 Intake, Total IV Amount 1289 / 9 850 / 850 0 / 850 0.9 % Sodium Chloride 1000ML 1, 1239 / 9 800 / 800 000 ml @ 100 mls/hr IV .Q10H [facility] Rx#:[id number] Pipercillin/Tazo 3.375 gm In 0. 50 / 50 50 / 50 9 % Sodium Chloride 50 ml @ 100 mls/hr IV Q8H [facility] Rx#:[id number] Output: Output, Urine Amount 0 / 550 300 / 800 500 / 800 Output, Drainage Amount 100 / 150 Abdomen 100 / 150 Other: Number of Voids 0 Number of Unmeasured Voids 1 1 Number of Bowel Movements 1 Weight 92.66 kg Patient Weight 06/07/22 23:59 Weight 92.66 kg Laboratory Results - last 24 hr 06/06/22 16:33: POC Glucose 274 H 05/02/23 21:20: POC Glucose 225 H 06/07/22 05:08: POC Glucose 213 H 06/07/22 06:24: WBC 12.9 H, RBC 3.93 L, Hgb 12.1 L, Hct 36.9 L, MCV 93.7, MCH 30.7, MCHC 32.8, RDW 14.7, Plt Count 131 L, MPV 8.4, Neut % (Auto) 84.5 H, Lymph % (Auto) 9.2 L, [place] % (Auto) 6.0, Eos % (Auto) 0.2, Baso % (Auto) 0.1, Neut # (Auto) 10.9 H, Lymph # (Auto) 1.2, [place] # (Auto) 0.8, Eos # (Auto) 0.0, Baso # (Auto) 0.0 06/07/22 06:24: Sodium 139, Potassium 3.4 L, Chloride 99, Carbon Dioxide 28, Anion Gap 15.4 H, BUN 21 H D, Creatinine 1.00, Estimated Creat Clear 84, Estimated GFR 73, Est GFR ( Amer) 88, Glucose 189 H D, Calcium 7.8 L, Magnesium 1.4 L, Total Bilirubin 1.0, AST 55 D, ALT 10 L D, Alkaline Phosphatase 142 H, Total Protein 6.0 L, Albumin 2.9 L, Globulin 3.1, Albumin/Globulin Ratio 0.9 L 06/07/22 11:26: POC Glucose 172 H I & O for Labs for Last 24 Hours: Intake & Output 06/04/22 06/05/22 06/06/22 06/07/22 23:59 23:59 23:59 23:59 Intake Total 1850 / 1850 2749 / 2749 1210 / 1210 Output Total 453 / 453 700 / 700 800 / 800 Balance 1397 / 1397 2049 / 2049 410 / 410 Weight 92.669 kg 92.669 kg 92.66 kg 92.66 kg Constitutional: Present no acute distress, average body habitus and chronically ill appearing Head: Present atraumatic and normocephalic ENT: Present normal exam Neck: Present normal inspection Respiratory: Present normal respiratory effort; Absent rhonchi, wheezes or crackles Cardiac: Present Reg Rate and Rhythm GI: Present soft, tenderness (Diffuse, interval improvement in right upper quadrant tenderness. JPs at surgical site right upper quadrant with serosanguineous drainage) and normal bowel sounds; Absent distention Extremities: Present normal inspection and full ROM Skin: Present intact; Absent erythema Neuro: Present Grossly Intact, alert, awake and moves all extremities Assessment and Plan *Assessment and plan (1) Acute cholecystitis: Problem Comment: Gangrenous hydrops Status: Acute Category: Medical Code(s): K81.0 - Acute cholecystitis (2) Diabetes mellitus: Status: Acute Category: Medical Code(s): E11.9 - Type 2 diabetes mellitus without complications
--- NOTE | 2022-06-07 16:03 | PC.NURSE ---
PT IS RESTING IN BED. ALERT AND ORIENTED X2. PT WILL ANSWER QUESTIONS HOWEVER IS VERY SLOW TO RESPOND. DRESSINGS TO THE ABDOMEN WERE CHANGED THIS SHIFT. ABDOMEN SOFT WITH ACTIVE BOWEL SOUNDS. 30 ML'S EMPTIED FROM BEATRICE DRAINS THIS SHIFT. TOLERATING FULL LIQUIDS. LUNG SOUNDS DIMINISHED WITH FINE CRACKLES (RT BASE). PT TOLERATED SITTING UP IN THE CHAIR FOR SEVERAL HOURS THIS SHIFT. VOIDING WELL. WILL CONTINUE TO MONITOR.
[2022-06-07 16:42] LABS: POC Glucose,Bedside 164 (70-110)
[2022-06-07 20:58] LABS: POC Glucose,Bedside 208 (70-110)
[2022-06-08] VITALS: BP 143/60; PULSE 54; RESP 18; TEMP 36.6; O2SAT 95
--- NOTE | 2022-06-08 03:52 | PC.NURSE ---
Addendum entered by Adry Cruz RN 06/08/22 03:56: BED SAFETY ON. Original Note: PT HAS BEEN ALERT TO SELF THIS SHIFT. TOLERATING RA WELL. UP WITH X2 ASSIST TO BATHROOM. INCISIONS TO ABD CDI. BEATRICE DRAINS IN PLACE. PT HAS SEEMED TO BE IN [employer] TONIGHT AND HAS SLEPT WELL THUS FAR. VSS.
[2022-06-08 04:00] VITALS: BP 151/64; PULSE 50; RESP 16; TEMP 36.7; O2SAT 96; BMI 27.8
[2022-06-08 05:24] LABS: POC Glucose,Bedside 153 (70-110)
--- NOTE | 2022-06-08 06:41 | EXP.SURG.PN ---
Subjective Patient reports: no new complaints Exam Data for Last 24 hours Vital signs and Labs for Last 24 Hours: Temp Pulse Resp BP Pulse Ox 98.1 F 50 L 16 151/64 H 96 06/08/22 04:00 06/08/22 04:00 06/08/22 04:00 06/08/22 04:00 06/08/22 04:00 Laboratory Results - last 24 hr 06/07/22 06:24: WBC 12.9 H, RBC 3.93 L, Hgb 12.1 L, Hct 36.9 L, MCV 93.7, MCH 30.7, MCHC 32.8, RDW 14.7, Plt Count 131 L, MPV 8.4, Neut % (Auto) 84.5 H, Lymph % (Auto) 9.2 L, [place] % (Auto) 6.0, Eos % (Auto) 0.2, Baso % (Auto) 0.1, Neut # (Auto) 10.9 H, Lymph # (Auto) 1.2, [place] # (Auto) 0.8, Eos # (Auto) 0.0, Baso # (Auto) 0.0 06/07/22 06:24: Sodium 139, Potassium 3.4 L, Chloride 99, Carbon Dioxide 28, Anion Gap 15.4 H, BUN 21 H D, Creatinine 1.00, Estimated Creat Clear 84, Estimated GFR 73, Est GFR ( Amer) 88, Glucose 189 H D, Calcium 7.8 L, Magnesium 1.4 L, Total Bilirubin 1.0, AST 55 D, ALT 10 L D, Alkaline Phosphatase 142 H, Total Protein 6.0 L, Albumin 2.9 L, Globulin 3.1, Albumin/Globulin Ratio 0.9 L 06/07/22 11:26: POC Glucose 172 H 06/07/22 16:35: POC Glucose 164 H 06/07/22 20:38: POC Glucose 208 H 06/08/22 05:07: POC Glucose 153 H I & O for Last 24 hours: Intake & Output 06/05/22 06/06/22 06/07/22 06/08/22 11:59 11:59 11:59 11:59 Intake Total 0 / 0 2890 / 2890 2919 / 2919 100 / 100 Output Total 3 / 3 1050 / 1050 900 / 900 880 / 880 Balance -3 / -3 1840 / 1840 2018 / 2019 -780 / -780 Weight 204 lb 4.803 oz 204 lb 4.485 oz 204 lb 4.485 oz 205 lb 4.8 oz Constitutional Constitutional: no acute distress *Routine Respiratory Exam Respiratory: Absent respiratory distress *Routine Cardiovascular Exam Cardiovascular: Absent tachycardia *Routine Abdominal Exam Abdominal: Present soft Progress Note: A&P Assessment and plan (1) Acute cholecystitis: Problem details: Gangrenous hydrops Status: Acute Assessment and plan: Overall, doing well status post laparoscopic cholecystectomy. Complete short-course of antibiotics Continue Luigi-Bourne drainage for now Continue to slowly increase diet OK from surgical standpoint for discharge with close outpatient follow-up (when deemed medically stable by primary service)
[2022-06-08 06:56] LABS: Chloride 101 mmol/L (98-107)
[2022-06-08 06:57] LABS: Potassium 3.4 mmoL/L (3.5-5.1); Sodium 138 mmol/L (136-145)
[2022-06-08 06:59] LABS: Alanine Aminotransferase 12 U/L (12-78); Alkaline Phosphatase 176 U/L (38-126); Aspartate Amino Transferase 54 U/L (17-59); Bilirubin,Total 1.1 mg/dl (0.2-1.3); Blood Urea Nitrogen 18 mg/dl (9-20); Creatinine Clearance Estimated 84 mL/min (50-200); Estimated Glomerular Filt Rate 82 ml/min (>60); GFR (African American) 100 ML/MIN (>60)
[2022-06-08 07:00] LABS: Albumin Level 2.6 g/dl (3.5-5.0); Albumin/Globulin Ratio 0.9 (1.1-1.8); Anion Gap 14.4 mEq/L (5-15); Calcium 7.6 mg/dl (8.4-10.2); Carbon Dioxide 26 mmol/L (22.0-30.0); Glucose 155 mg/dl (74-100); Total Protein,Serum 5.6 g/dl (6.3-8.2)
[2022-06-08 07:06] LABS: Basophils % 0.1 % (0.1-2.0); Eosinophils # 0.1 K/mm3 (0.0-0.4); Lymphocytes # 1.1 K/mm3 (0.7-4.5); Mean Corpuscular Hemoglobin 30.9 pg (27.0-31.2); Red Cell Distribution Width 14.3 % (11.5-17.5)
--- NOTE | 2022-06-08 07:10 | EXP.DC.SUM ---
General Admission date:: 06/06/22 Discharge date: 06/08/22 HPI HPI HPI: This is a 76-year-old male with a past medical history of T2DM, recurrent diabetic wound infections, pancreatitis, known gallbladder disease who presents to the emergency department today with complaints of bilateral upper quadrant pain with a known history of gallbladder attacks.? He reports this feels similar to previous gallbladder attack.? He endorses nausea without vomiting.? He denies fever or diarrhea.? CT abdomen pelvis was obtained in the emergency department and notable for moderately distended gallbladder with adjacent stranding concerning for acute cholecystitis.? Urinary wall also thickening concerning for cystitis.? Urinalysis consistent with acute cystitis.? Dr. Blount was consulted prior to admission and recommends hospitalization with possible OR tomorrow for acute cholecystitis.? He was given Zosyn, medicated with IV fluids and admitted to the hospitalist service for further evaluation management. Hospital Course Hospital Course Hospital Course: This is a 76-year-old male with a past medical history of DM, CKD, hypothyroidism who is admitted to the hospital service for acute cholecystitis.? General surgery consulted for recommendations. Acute cholecystitis Patient presented with abdominal pain and lab abnormalities. Surgery was consulted. Taken for surgery 06/05.? Status postcholecystectomy.? Drains left in place. Was started on IV Zosyn 3.375gm every 8 hours on admission. At discharge we will transition to Augmentin 500 three times daily to complete a total of 7 days of antibiotics. Patient is tolerated advancement of his diet. Had a bowel movement on 06/07. He is stable for discharge to long-term for rehab and PT. Pain control has been achieved with oxycodone 1-2 times a day. Discharged with a 3-day prescription. Labs normalized on day of discharge. Will have follow-up with surgery scheduled at time of discharge. BEATRICE drains to remain in place until follow-up with surgery. DM Hemoglobin A1c 9.4% (02/24/2022). Routine blood sugar monitoring during admission. Was treated with sliding scale insulin and basal. Resume his basal glargine per med rec. Recommend diabetic diet. Parkinson's Continue carbidopa/levodopa. Complicates his mobility. Would benefit from PT and OT during transition to long-term facility. Hypothyroidism Levothyroxine replacement therapy during admission. Medically stable for discharge to nursing facility for continued antibiotics, pain control, monitoring of surgical wound, and PT/OT given patient's underlying Parkinson's. Exam Data for Last 24 hours Vital signs and Labs for Last 24 Hours: Temp Pulse Resp BP Pulse Ox 98.1 F 50 L 16 151/64 H 96 06/08/22 04:00 06/08/22 04:00 06/08/22 04:00 06/08/22 04:00 06/08/22 04:00 Laboratory Results - last 24 hr 06/07/22 06:24: Sodium 139, Potassium 3.4 L, Chloride 99, Carbon Dioxide 28, Anion Gap 15.4 H, BUN 21 H D, Creatinine 1.00, Estimated Creat Clear 84, Estimated GFR 73, Est GFR ( Amer) 88, Glucose 189 H D, Calcium 7.8 L, Magnesium 1.4 L, Total Bilirubin 1.0, AST 55 D, ALT 10 L D, Alkaline Phosphatase 142 H, Total Protein 6.0 L, Albumin 2.9 L, Globulin 3.1, Albumin/Globulin Ratio 0.9 L 06/07/22 11:26: POC Glucose 172 H 06/07/22 16:35: POC Glucose 164 H 06/07/22 20:38: POC Glucose 208 H 06/08/22 05:07: POC Glucose 153 H 06/08/22 06:08: Sodium 138, Potassium 3.4 L, Chloride 101, Carbon Dioxide 26, Anion Gap 14.4, BUN 18, Creatinine 0.90, Estimated Creat Clear 84, Estimated GFR 82, Est GFR ( Amer) 100, Glucose 155 H, Calcium 7.6 L, Total Bilirubin 1.1, AST 54, ALT 12, Alkaline Phosphatase 176 H, Total Protein 5.6 L, Albumin 2.6 L D, Globulin 3.0, Albumin/Globulin Ratio 0.9 L I & O for Last 24 hours: Intake & Output 06/05/22 06/06/22 06/07/22 06/08/22 23:59 23:59 23:59 23:59 Intake Total 1850 / 1850 2749 / 2749 1210 / 1210 100 / 100 Output T
[2022-06-08 07:27] LABS: Hematocrit 30.1 % (42.0-52.0); Lymphocytes % 11.3 % (10-50); Mean Corpuscular HGB Conc 33.5 g/dL (31.8-35.4); Mean Corpuscular Volume 92.2 fl (80-94); Mean Platelet Volume 8.4 fl (7.4-10.4); Monocytes # 0.9 K/mm3 (0.1-1.0); Neutrophils # 7.2 K/mm3 (1.8-7.8); Neutrophils % 77.6 % (37.0-80.0); Platelet Count 150 K/mm3 (142-424); Red Blood Count 3.27 M/mm3 (4.60-6.20); White Blood Count 9.3 K/mm3 (4.8-10.8)
[2022-06-08 07:35] LABS: Hemoglobin 10.1 g/dL (14.1-18.0)
[2022-06-08 08:00] VITALS: BP 160/72; PULSE 60; RESP 18; TEMP 36.8; O2SAT 95
--- NOTE | 2022-06-08 08:48 | EXP.PHA.PN ---
Subjective *Date: 06/08/22 *Time: 08:48 Medical Exam Vital signs and Labs for Last 24 Hours: Vital Signs Temp Pulse Pulse Resp BP BP Pulse Ox 06/08/22 08:00 98.2 F 47 L 18 160/72 H 95 06/08/22 04:00 98.1 F 50 L 16 151/64 H 96 06/08/22 00:00 97.9 F 54 L 18 143/60 H 95 06/07/22 20:00 99.8 F H 60 16 120/52 L 97 06/07/22 15:09 99.2 F 62 18 174/83 H 99 06/07/22 12:00 98.1 F 53 L 18 100/79 L 98 06/07/22 09:18 97.5 F L 82 155/74 H Intake and Output 06/07/22 06/08/22 06/08/22 23:59 07:59 15:59 Intake Total 100 / 340 240 / 340 Output Total 0 / 830 880 / 880 Balance 0 / 380 -780 / -540 240 / -540 Intake: Intake, Oral Amount 240 / 240 Intake, Total IV Amount 100 / 100 Pipercillin/Tazo 3.375 gm In 0. 100 / 100 9 % Sodium Chloride 50 ml @ 100 mls/hr IV Q8H [facility] Rx#:[id number] Output: Output, Urine Amount 0 / 800 850 / 850 Output, Drainage Amount 30 / 30 Abdomen 30 / 30 Other: Number of Unmeasured Voids 1 0 Weight 93.123 kg Patient Weight 06/08/22 23:59 Weight 93.123 kg Laboratory Results - last 24 hr 06/07/22 11:26: POC Glucose 172 H 06/07/22 16:35: POC Glucose 164 H 06/07/22 20:38: POC Glucose 208 H 06/08/22 05:07: POC Glucose 153 H 06/08/22 06:08: WBC 9.3 D, RBC 3.27 L, Hgb 10.1 L D, Hct 30.1 L, MCV 92.2, MCH 30.9, MCHC 33.5, RDW 14.3, Plt Count 150, MPV 8.4, Neut % (Auto) 77.6, Lymph % (Auto) 11.3, [place] % (Auto) 10.0 H, Eos % (Auto) 1.0, Baso % (Auto) 0.1, Neut # (Auto) 7.2, Lymph # (Auto) 1.1, [place] # (Auto) 0.9, Eos # (Auto) 0.1, Baso # (Auto) 0.0 06/08/22 06:08: Sodium 138, Potassium 3.4 L, Chloride 101, Carbon Dioxide 26, Anion Gap 14.4, BUN 18, Creatinine 0.90, Estimated Creat Clear 84, Estimated GFR 82, Est GFR ( Amer) 100, Glucose 155 H, Calcium 7.6 L, Total Bilirubin 1.1, AST 54, ALT 12, Alkaline Phosphatase 176 H, Total Protein 5.6 L, Albumin 2.6 L D, Globulin 3.0, Albumin/Globulin Ratio 0.9 L I & O for Labs for Last 24 Hours: Intake & Output 06/05/22 06/06/22 06/07/22 06/08/22 23:59 23:59 23:59 23:59 Intake Total 1850 / 1850 2749 / 2749 1210 / 1210 340 / 340 Output Total 453 / 453 700 / 700 830 / 830 880 / 880 Balance 1397 / 1397 204 / 204 380 / 380 -540 / -540 Weight 92.669 kg 92.66 kg 92.66 kg 93.123 kg The patient's infection will respond to the chosen ABx?: Yes (ACUTE CHOLECYSTITIS) Is the patient receiving the right drug, dose, and route?: Yes Could a more targeted ABx be ordered?: No
--- NOTE | 2022-06-09 11:36 | CARE MANAGER ---
Contacted [facility] related to patient's hospital discharge. They state he is doing better and deny any questions or concerns. GLENYS Parkinson
== END 2022-06-08 12:05 | DRG 415 ==
LOC: ER 19:58 → 2ND 20:29
PROVIDERS: Family Medicine; Nurse Practitioner Acute Care; Surgery; Admitting Provider Internal Medicine Adolescent Medicine; Emergency Provider Emergency Medicine; PCP Family Medicine; Visit Provider Internal Medicine Adolescent Medicine
PROC: 0FT44ZZ Resection of Gallbladder, Percutaneous Endoscopic Approach (ICD-10-PCS; CPT 47562; principal; 2022-06-05 16:00)
DX: K81.0 Acute cholecystitis (principal); K82.1 Hydrops of gallbladder; N30.00 Acute cystitis without hematuria; K82.A1 Gangrene of gallbladder in cholecystitis; Z79.4 Long term (current) use of insulin; G20 Parkinson's disease; E03.9 Hypothyroidism, unspecified; E11.22 Type 2 diabetes mellitus with diabetic chronic kidney disease; N18.9 Chronic kidney disease, unspecified
CPT/HCPCS: 47562; 36415; 74177; 80048; 80053; 81001; 82962; 83690; 83735; 84145; 85007; 85025; 87086; 88304; 97110; 97116; 97162; 97166; 97530; 99285; C9803; J2405; J2543; J2710; J3475; Q9967; U0003; U0005

== ENCOUNTER 2022-10-05 08:33 | Emergency (ER) | payer MEDICARE, OTHER, SELFPAY ==
[2022-10-05] VITALS (23 sets, daily range): BP systolic 133–172; BP diastolic 65–91; PULSE 67–93; RESP 10–20; TEMP 36.7–38.3; O2SAT 92–98; BMI 33.9
--- NOTE | 2022-10-05 08:39 | XR_ITS ---
FINAL REPORT CLINICAL HISTORY: ams, fever COMPARISON: 03/01/2021 FINDINGS: SINGLE-VIEW CHEST The heart size is normal. The mediastinum is normal. There is scar or atelectasis at the right base. The left lung is clear. There is no pneumothorax. IMPRESSION: Right base scar or atelectasis. Reviewed, Interpreted and Dictated by Danny Shannon MD Transcribed by Preethi Merchant Authenticated and [facility]
--- NOTE | 2022-10-05 08:47 | PC.NURSE ---
DR JEFFREY AT BEDSIDE
--- NOTE | 2022-10-05 08:54 | XR_ITS ---
FINAL REPORT CLINICAL HISTORY: L carter osteo suspected FINDINGS: Left tibia fibula Two views were obtained. There is no acute fracture or dislocation. The joint spaces appear normal. No soft tissue abnormality is identified. There is no evidence of bony erosion or periosteal reaction. IMPRESSION: No acute process. Reviewed, Interpreted and Dictated by Danny Shannon MD Transcribed by Preethi Merchant Authenticated and [facility]
--- NOTE | 2022-10-05 08:55 | PC.NURSE ---
XR AT BEDSIDE
--- NOTE | 2022-10-05 09:00 | PC.NURSE ---
FAMILY AT BEDSIDE
--- NOTE | 2022-10-05 09:06 | ECG_ITS ---
APPROVED REPORT Exam: Resting ECG HR:91 bpm ECG Measurements Heart Rate 91 AXES MA 192 P 82 QRSd 101 QRS -16 QT 367 T -8 QTc 416 Conclusion SINUS RHYTHM MODERATE VOLTAGE CRITERIA FOR LVH, CONSIDER NORMAL VARIANT [MEETS CRITERIA IN ONE OF: R(aVL), S(V1), R(V5), R(V5/V6)+S(V1)] BORDERLINE ECG UNCONFIRMED REPORT Electronically signed by : Suhail Salcedo MD 10/05/2022 18:32:05
--- NOTE | 2022-10-05 09:09 | HMH.EDGENADL ---
Discharge Plan Disposition Patient Disposition: Xfer Short-Term Hosp Chief Complaint: Altered Mental Status Prescriptions Prescriptions: No Action levothyroxine 25 mcg tablet 25 mcg PO DAILY Qty: 90 4RF Rx Instructions: TAKE 1 TABLET DAILY (NEED APPOINTMENT BEFORE NEXT REFILL) (DME) Dexcom G7 Sensor Device See Rx Instructions .Route Qty: 1 5RF Rx Instructions: As directed (DME) Dexcom G7 Telephone Interceptor Operator Misc See Rx Instructions .Route Qty: 1 0RF Rx Instructions: As directed allopurinol 300 mg tablet 300 mg PO DAILY Qty: 90 3RF Rx Instructions: TAKE 1 TABLET DAILY aspirin 81 mg tablet,chewable 81 mg PO DAILY 30 Days Qty: 90 3RF atorvastatin 40 mg tablet 40 mg PO HS Qty: 90 4RF carbidopa-levodopa 25-100 mg tablet 1 tab PO QID Qty: 360 3RF Rx Instructions: TAKE 1 TABLET FOUR TIMES A DAY carvedilol 25 mg tablet 25 mg PO BID Qty: 180 3RF Rx Instructions: TAKE 1 TABLET TWICE A DAY gabapentin 400 mg capsule 400 mg PO BIDP PRN (Reason: pain) Qty: 180 1RF losartan 100 mg tablet See Rx Instructions .ROUTE .COMPLEX Qty: 90 3RF Dose Instruction: TAKE 1 TABLET DAILY Rx Instructions: TAKE 1 TABLET DAILY insulin aspart U-100 [Novolog FlexPen U-100 Insulin] 100 unit/mL (3 mL) insulin pen 40 unit SQ AC Qty: 50 3RF Rx Instructions: TID with meals insulin glargine [Lantus Solostar U-100 Insulin] 100 unit/mL (3 mL) insulin pen 80 unit SQ HS Qty: 90 3RF tamsulosin 0.4 mg capsule 0.4 mg PO DAILY Qty: 30 0RF paroxetine HCl 40 mg tablet See Rx Instructions .ROUTE .COMPLEX Qty: 90 3RF Dose Instruction: TAKE 1 TABLET DAILY Rx Instructions: TAKE 1 TABLET DAILY hydrocodone-acetaminophen 5-325 mg tablet 1 tab PO BID PRN (Reason: pain) Qty: 60 0RF trazodone 50 mg tablet 50 mg PO HS Rx Instructions: TAKE 1 TABLET AT BEDTIME FOR INSOMNIA omeprazole 20 mg capsule,delayed release(DR/EC) 20 mg PO BID Rx Instructions: TAKE 1 CAPSULE TWICE A DAY quetiapine 100 mg tablet 100 mg PO HS Rx Instructions: TAKE 1 TABLET AT BEDTIME Referrals Follow up/Referrals: Chantel Ruggiero PA [Primary Care Provider] - See instructions Clinical Impressions Clinical Impression: Osteomyelitis, Sepsis Instructions Patient Instructions: DI for Altered Mental Status Discharge ED Provider: Benji Chery General Adult HPI General Chief complaint: Altered Mental Status Stated complaint: Fever Time Seen by Provider: 10/05/22 08:35 Mode of Arrival: EMS Source of Information: EMS Limitations: No Limitations Description of Symptoms (Recalled from ER Triage Doc. by RN): PT FROM HOME VIA EMS. FAMILY REPORTS ALTERED METAL STATUS. PT A&O. PT C/O HEADACHE. EMS REPORTS 102.5 ORAL TEMP History of Present Illness HPI narrative: This is a 77-year-old male with history of hypertension, hyperlipidemia, hypothyroidism, diabetes with diabetic ulcers on lower extremities being treated by wound care presenting with fever and confusion. Family was visiting patient at nursing facility and noted that he was more altered than usual. EMS was contacted and this is the story was obtained. Patient was febrile with EMS, so brought to the ER for further evaluation. Patient alert and oriented on my evaluation stating that he has mild headache, which is normal for him, denies any other complaints. Denies known fevers or chills, vomiting, diarrhea, cough, shortness of breath, chest pain, abdominal pain, dysuria hematuria, urinary retention or bowel or bladder dysfunction overall. No rash, sick contacts or any other concerning history. Related Data Home Medications Medication Instructions Recorded Confirmed omeprazole 20 mg capsule,delayed 20 mg PO BID Acid reflux 06/05/22 08/31/22 release quetiapine 100 mg tablet 100 mg PO HS Insomnia 06/05/22 08/31/22 trazodone 50 mg tablet 50 mg PO H
--- NOTE | 2022-10-05 09:16 | PC.NURSE ---
FAMILY UPDATED AT THIS TIME
[2022-10-05 09:23] LABS: Lactic Acid 1.4 mmol/L (0.7-2.1)
[2022-10-05 09:24] LABS: Basophils % 0.2 % (0.1-2.0); Eosinophils # 0.1 K/mm3 (0.0-0.4); Hematocrit 36.9 % (42.0-52.0); Hemoglobin 12.2 g/dL (14.1-18.0); Lymphocytes # 0.6 K/mm3 (0.7-4.5); Lymphocytes % 4.3 % (10-50); Mean Corpuscular HGB Conc 33.2 g/dL (31.8-35.4); Mean Corpuscular Hemoglobin 30.5 pg (27.0-31.2); Mean Corpuscular Volume 92.1 fl (80-94); Mean Platelet Volume 8.1 fl (7.4-10.4); Monocytes # 0.9 K/mm3 (0.1-1.0); Monocytes % 6.6 % (1.7-9.3); Neutrophils # 12.2 K/mm3 (1.8-7.8); Neutrophils % 87.9 % (37.0-80.0); Platelet Count 150 K/mm3 (142-424); Red Blood Count 4.01 M/mm3 (4.60-6.20); Red Cell Distribution Width 15.5 % (11.5-17.5); White Blood Count 13.9 K/mm3 (4.8-10.8)
[2022-10-05 09:26] LABS: Acetaminophen < 10 ug/ml (10-30); Alanine Aminotransferase 60 U/L (12-78); Albumin Level 3.2 g/dl (3.5-5.0); Albumin/Globulin Ratio 0.9 (1.1-1.8); Alkaline Phosphatase 348 U/L (38-126); Anion Gap 11.5 mEq/L (5-15); Aspartate Amino Transferase 305 U/L (17-59); Bilirubin,Total 2.9 mg/dl (0.2-1.3); Blood Urea Nitrogen 13 mg/dl (9-20); Carbon Dioxide 28 mmol/L (22.0-30.0); Chloride 105 mmol/L (98-107); Creatinine Clearance Estimated 84 mL/min (50-200); Estimated Glomerular Filt Rate 59 ml/min (>60); GFR (African American) 71 ML/MIN (>60); Globulin 3.6 g/dL (1.3-3.2); Glucose 127 mg/dl (74-100); MANUAL DIFFERENTIAL MANUAL DIFFERENTIAL (MANUAL DIFF); Potassium 3.5 mmoL/L (3.5-5.1); Salicylate < 1.0 mg/dL (2.0-20.0); Sodium 141 mmol/L (136-145); Total Protein,Serum 6.8 g/dl (6.3-8.2)
[2022-10-05 09:31] LABS: Activated Partial Thrombo Time 26.5 seconds (22.8-30.6); INR 1.16 (0.9-1.1); Prothrombin Time 12.4 seconds (10.1-12.5)
[2022-10-05 09:34] LABS: Coronavirus 19, PCR Not Detected (NotDetected); Influenza A, PCR Not Detected (NotDetected); Influenza B, PCR Not Detected (NotDetected)
--- NOTE | 2022-10-05 09:36 | US_ITS ---
FINAL REPORT CLINICAL HISTORY: hepatitis, elevated bili, AMS COMPARISON: None FINDINGS: Sonographic images of the right upper quadrant were obtained. The pancreas is partially obscured. The liver has a coarsened echotexture. The gallbladder is surgically absent. There is no evidence of biliary ductal dilatation.The common duct is within normal limits. Limited images of the right kidney are unremarkable. IMPRESSION: Coarsened echotexture of the liver. Surgically absent gallbladder. Reviewed, Interpreted and Dictated by Danny Shannon MD Transcribed by Sandra Almaguer Authenticated and [facility]
--- NOTE | 2022-10-05 09:42 | PC.NURSE ---
FAMILY UPDATED AT THIS TIME
[2022-10-05 09:43] LABS: Lymphocytes % 12 % (10-50); Monocytes % 7 % (2-9); Neutrophils % 81 % (42-76); Platelet Estimate Normal; RBC Morphology Normal; Total Cells Counted 100
[2022-10-05 09:49] LABS: Acetone, Serum (Rapid) None Detected (None Detect)
[2022-10-05 10:47] LABS: Ethyl Alcohol < 10 mg/dl (0-10)
--- NOTE | 2022-10-05 11:04 | PC.NURSE ---
DR JEFFREY SPEAKING WITH HOSPITALIST FOR ADMISSION
[2022-10-05 11:19] LABS: Microscopic, Urine URINE MICROSCOPIC (MICROSCOPIC)
[2022-10-05 11:21] LABS: Lipase 131 U/L (23-300)
--- NOTE | 2022-10-05 11:28 | PC.NURSE ---
Dr. Melchor at BS
--- NOTE | 2022-10-05 11:31 | PC.NURSE ---
Dr. Melchor speaking with Dr. Chery at this time
--- NOTE | 2022-10-05 11:32 | PC.NURSE ---
DR LAZARO DISCUSSING TRANSFER, NOT ADMISSION WITH DR JEFFREY
[2022-10-05 11:39] LABS: Chol/HDL Ratio 2.5 (1-3.5); Cholesterol 98 mg/dl (140-200); HDL Cholesterol 39 mg/dl (40-60); Lipase 113 U/L (23-300); Triglycerides 86 mg/dl (30-150); VLDL Cholesterol 17 mg/dL (0-40)
--- NOTE | 2022-10-05 11:41 | PC.NURSE ---
DR JEFFREY REQUESTS TO SPEAK WITH DR DANIELSON, PAGED AT THIS TIME
--- NOTE | 2022-10-05 11:43 | PC.NURSE ---
DR JEFFREY SPEAKING WITH DR DANIELSON
--- NOTE | 2022-10-05 11:45 | PC.NURSE ---
Dr. Chery s/w Dr. Llanos regarding possible admission
[2022-10-05 11:50] LABS: Direct LDL Cholesterol 37.19 mg/dL (100-129)
[2022-10-05 11:51] LABS: Appearance,Urine Slightly Cloudy (Clear); Bilirubin,Urine Negative (Negative); Blood, Urine Negative (Negative); Color,Urine Dark Yellow (Yellow); Glucose,Urine (UA) Negative (Negative); Ketones,Urine Trace (Negative); Leukocyte Esterase,Urine 1+ (Negative); Nitrate,Urine Negative (Negative); PH,Urine 6.5 (5.0-8.5); Protein,Urine 3+ (Negative)
--- NOTE | 2022-10-05 11:53 | EXP.MED.CON ---
History of Present Illness *Admission Date: 10/05/22 *Reason for visit:: lethargy *History of present illness: Mr. Crocker is a 77 year old male with a past medical history of t2dm, recurrent diabetic wound infections, h/o pancreatitis, hypothyroidism and hypertension who presented to the ED with one day of lethargy. He currently has no complaints. He denies shortness of breath, dysuria, chest pain, abdominal pain and diarrhea. In the ED he was found to have a fever with a temperature of 101degrees F. Initial workup from the ED include CBC with 13.9K wbcs, CMP with t. bili 2.9, ast 305, alt 60, alk phos of 348. blood and urine cultures were collected, ua is pending, covid/flu not detected, cxr without acute cardiopulmonary process. [facility] Disclaimer: The information contained in this section may have been updated after the patient was seen, as this information can be updated by other users. Surgical History History of colonoscopy History of laparoscopic cholecystectomy Social History Smoking Status: Unknown if ever smoked alcohol intake: never substance use type: denies use current occupational status: unemployed Travel in the last 8 weeks: None household members: family housing: house number of children: 1 caffeine: Yes Review of Systems Review of Systems Review of systems:: pertinent systems reviewed and negative unless documented below Exam Data for Last 24 hours Vital signs and Labs for Last 24 Hours: Temp Pulse Resp BP Pulse Ox O2 Del Method 101.0 F H 88 18 141/70 H 96 Room Air 10/05/22 08:33 10/05/22 09:30 10/05/22 08:33 10/05/22 09:30 10/05/22 09:30 10/05/22 08:33 Laboratory Results - last 24 hr 10/05/22 08:37: WBC 13.9 H, RBC 4.01 L, Hgb 12.2 L, Hct 36.9 L, MCV 92.1, MCH 30.5, MCHC 33.2, RDW 15.5, Plt Count 150, MPV 8.1, Neut % (Auto) 87.9 H, Lymph % (Auto) 4.3 L, [place] % (Auto) 6.6, Eos % (Auto) 1.0, Baso % (Auto) 0.2, Neut # (Auto) 12.2 H, Lymph # (Auto) 0.6 L, [place] # (Auto) 0.9, Eos # (Auto) 0.1, Baso # (Auto) 0.0, Total Counted 100, Neutrophils % (Manual) 81 H, Lymphocytes % (Manual) 12, Monocytes % (Manual) 7, Platelet Estimate Normal, RBC Morphology Normal, PT 12.4, INR 1.16 H, APTT 26.5, Sodium 141, Potassium 3.5, Chloride 105, Carbon Dioxide 28, Anion Gap 11.5, BUN 13, Creatinine 1.20, Estimated Creat Clear 84, Estimated GFR 59, Est GFR ( Amer) 71, Glucose 127 H, Lactate 1.4, Calcium 8.0 L, Total Bilirubin 2.9 H, AST 305 H*, ALT 60, Alkaline Phosphatase 348 H, Total Protein 6.8, Albumin 3.2 L, Globulin 3.6 H, Albumin/Globulin Ratio 0.9 L, Triglycerides 86, Cholesterol 98 L, VLDL Cholesterol 17, HDL Cholesterol 39 L, Cholesterol/HDL Ratio 2.5, Lipase 113 10/05/22 08:37: Lipase 131, Salicylates < 1.0 L, Acetaminophen < 10 L, Plasma/Serum Alcohol < 10, Acetone Level None detected 10/05/22 09:09: SARS-CoV-2 (PCR) Not detected, Influenza A Untype (PCR) Not detected, Influenza Type B (PCR) Not detected 10/05/22 11:15: Urine Color Dark yellow, Urine Appearance Slightly cloudy, Urine pH 6.5, Ur Specific [place] 1.010, Urine Protein 3+, Urine Glucose (UA) Negative, Urine Ketones Trace, Urine Blood Negative, Urine Nitrate Negative, Urine Bilirubin Negative, Urine Urobilinogen 1.0, Ur Leukocyte Esterase 1+ A I & O for Last 24 hours: Intake & Output 10/02/22 10/03/22 10/04/22 10/05/22 23:59 23:59 23:59 23:59 Weight 113.398 kg *Routine Extremities Exam Comments: 1cm ulcer with necrotic tissue and slight purulent drainage at his right lateral malleolus. 2-3cm superficial ulcer left carter with surrounding erythemia but no swelling, crepitus or induration. *Routine Neurological Exam Neurological: Present alert, oriented X3 and altered mental status (lethargic) Meds Home Medications and Allergies Home Medications Medication Instructions Recorded Confirmed Type omeprazole 20 mg c
[2022-10-05 11:54] LABS: Troponin I < 0.01 ng/ml (0.00-0.034)
[2022-10-05 11:58] LABS: Procalcitonin 1.12 ng/mL (0.0-2.0)
[2022-10-05 12:03] LABS: RBC,Urine Occasional #/hpf (0-3); Squamous Epithelial Cell,Urine Occasional #/hpf (0-5); WBC,Urine 20-50 #/hpf (0-3)
[2022-10-05 12:12] LABS: Thyroid Stimulating Hormone 1.36 uIU/mL (0.465-4.68)
--- NOTE | 2022-10-05 12:25 | PC.NURSE ---
Calling [facility] for possible transfer
--- NOTE | 2022-10-05 12:32 | PC.NURSE ---
Spoke with Archana with the [facility] transfer center, awaiting a call back about bed placement.
[2022-10-05 12:36] LABS: Troponin I 0.02 ng/ml (0.00-0.034)
--- NOTE | 2022-10-05 12:45 | PC.NURSE ---
per transfer center at [facility] they are unable to accomodate pt for admission r/t they are at capacity.
--- NOTE | 2022-10-05 12:51 | PC.NURSE ---
Contacting [facility] for possible transfer
--- NOTE | 2022-10-05 13:05 | PC.NURSE ---
Dr. Chery speaking with [facility] for possible transfer
--- NOTE | 2022-10-05 13:13 | PC.NURSE ---
denied transfer; contacting [facility] for possible admission
--- NOTE | 2022-10-05 13:23 | PC.NURSE ---
Dr. Chery speaking with the Nurse practitioner of the Hospitalist group with [facility]
--- NOTE | 2022-10-05 13:34 | PC.NURSE ---
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
--- NOTE | 2022-10-05 13:36 | PC.NURSE ---
Contacting [facility] for possible transfer
--- NOTE | 2022-10-05 14:37 | PC.NURSE ---
Dr. Chery speaking with the Ortho Dr at [facility]
--- NOTE | 2022-10-05 14:52 | PC.NURSE ---
[facility] called back states they are unable to accomodate pt in transfer r/t air defense specialist will be out over the weekend notified ER
--- NOTE | 2022-10-05 15:31 | PC.NURSE ---
[facility] hospitalist (Dr. Moe) has accepted patient, just waiting on bed assignment.
--- NOTE | 2022-10-05 17:14 | PC.NURSE ---
[facility] called with room assignment 3B bed 372 number for report [phone]
== END 2022-10-05 18:35 | disposition short-term general hospital (02) ==
PROVIDERS: Emergency Provider Emergency Medicine; PCP Physician Assistant
DX: A41.9 Sepsis, unspecified organism (principal); M86.9 Osteomyelitis, unspecified; R41.82 Altered mental status, unspecified; E11.69 Type 2 diabetes mellitus with other specified complication; L97.319 Non-pressure chronic ulcer of right ankle with unspecified severity; L97.929 Non-pressure chronic ulcer of unspecified part of left lower leg with unspecified severity; E11.622 Type 2 diabetes mellitus with other skin ulcer
CPT/HCPCS: 36415; 71045; 73590; 76705; 80053; 80061; 80329; 81001; 82009; 83036; 83605; 83690; 84145; 84436; 84443; 84484; 85007; 85025; 85610; 85730; 87040; 87086; 87636; 93005; 96361; 96365; 96367; 96368; 96375; 99285; J0131

== ENCOUNTER → 2022-10-24 12:46 | Outpatient (CLI) | payer MEDICARE, OTHER, SELFPAY ==
--- NOTE | 2022-10-24 12:49 | XR_ITS ---
FINAL REPORT CLINICAL HISTORY: foot pain FINDINGS: 3 views of the right foot were obtained. There is no acute fracture or dislocation. 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 There are mild hypertrophic changes at the first MTP joint. A Ameena deformity is present. IMPRESSION: Degenerative and postoperative changes. Reviewed, Interpreted and Dictated by Danny Shannon MD Transcribed by Max Modi Authenticated and [facility][1]
--- NOTE | 2022-10-24 12:49 | XR_ITS ---
FINAL REPORT CLINICAL HISTORY: wound/ulcer of ankle FINDINGS: RIGHT ANKLE: Three weight bearing views of the right ankle were obtained. There is no acute fracture or dislocation. The joint spaces and mortise are intact. There is a Ameena deformity. There is mild soft tissue swelling. IMPRESSION: No acute bony abnormality. Reviewed, Interpreted and Dictated by Danny Shannon MD Transcribed by Max Modi Authenticated and [facility]
== END ==
PROVIDERS: PCP Physician Assistant; Visit Provider Nurse Practitioner Family
DX: E11.622 Type 2 diabetes mellitus with other skin ulcer (principal); L97.309 Non-pressure chronic ulcer of unspecified ankle with unspecified severity; M79.673 Pain in unspecified foot
CPT/HCPCS: 73610; 73630

== ENCOUNTER → 2022-10-24 14:20 | Outpatient (CLI) | payer MEDICARE, OTHER, SELFPAY | PROVIDERS: Visit Provider Nurse Practitioner Family | DX: S91.301A Unspecified open wound, right foot, initial encounter (principal); B95.7 Other staphylococcus as the cause of diseases classified elsewhere; E11.622 Type 2 diabetes mellitus with other skin ulcer; L97.319 Non-pressure chronic ulcer of right ankle with unspecified severity; M79.671 Pain in right foot; Z79.4 Long term (current) use of insulin | CPT/HCPCS: 73610; 73630; 87070; 87077; 87186; 87205 ==

== ENCOUNTER → 2022-11-06 12:07 | Outpatient (CLI) | payer MEDICARE, OTHER, SELFPAY ==
[2022-11-06 13:10] LABS: Basophils # 0.1 K/mm3 (0-0.2); Basophils % 0.7 % (0.1-2.0); Eosinophils # 0.3 K/mm3 (0.0-0.4); Eosinophils % 4.8 % (0.1-12.0); Hematocrit 39.1 % (42.0-52.0); Hemoglobin 12.2 g/dL (14.1-18.0); Lymphocytes # 1.5 K/mm3 (0.7-4.5); Lymphocytes % 23.1 % (10-50); Mean Corpuscular HGB Conc 31.3 g/dL (31.8-35.4); Mean Corpuscular Hemoglobin 29.1 pg (27.0-31.2); Mean Corpuscular Volume 93.1 fl (80-94); Mean Platelet Volume 8.9 fl (7.4-10.4); Monocytes # 0.5 K/mm3 (0.1-1.0); Monocytes % 7.9 % (1.7-9.3); Neutrophils # 4.1 K/mm3 (1.8-7.8); Neutrophils % 63.5 % (37.0-80.0); Platelet Count 174 K/mm3 (142-424); Red Cell Distribution Width 15.4 % (11.5-17.5); White Blood Count 6.4 K/mm3 (4.8-10.8)
[2022-11-06 14:15] LABS: Erythrocyte Sedimentation Rate 77 mm/hr (0-20)
[2022-11-06 14:21] LABS: Alanine Aminotransferase 14 U/L (12-78); Albumin/Globulin Ratio 0.8 (1.1-1.8); Alkaline Phosphatase 274 U/L (38-126); Anion Gap 9.2 mEq/L (5-15); Aspartate Amino Transferase 32 U/L (17-59); Bilirubin,Total 0.7 mg/dl (0.2-1.3); Blood Urea Nitrogen 9 mg/dl (9-20); Carbon Dioxide 33 mmol/L (22.0-30.0); Chloride 101 mmol/L (98-107); Estimated Glomerular Filt Rate 82 ml/min (>60); GFR (African American) 99 ML/MIN (>60); Glucose 194 mg/dl (74-100); Potassium 3.2 mmoL/L (3.5-5.1); Sodium 140 mmol/L (136-145)
[2022-11-08 11:24] LABS: C-Reactive Protein 1.1 mg/L (0-4)
== END ==
PROVIDERS: PCP Physician Assistant; Visit Provider Nurse Practitioner Family
DX: E11.40 Type 2 diabetes mellitus with diabetic neuropathy, unspecified (principal); Z79.4 Long term (current) use of insulin
CPT/HCPCS: 36415; 80053; 85025; 85651; 86140

== ENCOUNTER 2023-04-21 10:31 | Inpatient (IN) | payer MEDICARE, OTHER, SELFPAY ==
[2023-04-21] VITALS (13 sets, daily range): BP systolic 123–195; BP diastolic 64–85; PULSE 58–66; RESP 16–22; TEMP 37–38.1; O2SAT 95–99; BMI 24.4
--- NOTE | 2023-04-21 10:35 | HMH.EDGENADL ---
Discharge Plan Disposition Patient Disposition: Admitted Prescriptions Prescriptions: No Action levothyroxine 25 mcg tablet 25 mcg PO DAILY Qty: 90 4RF Rx Instructions: TAKE 1 TABLET DAILY (NEED APPOINTMENT BEFORE NEXT REFILL) (DME) Dexcom G7 Sensor Device See Rx Instructions .Route Qty: 1 5RF Rx Instructions: As directed (DME) Dexcom G7 Cigar Head Piercer Misc See Rx Instructions .Route Qty: 1 0RF Rx Instructions: As directed allopurinol 300 mg tablet 300 mg PO DAILY Qty: 90 3RF Rx Instructions: TAKE 1 TABLET DAILY aspirin 81 mg tablet,chewable 81 mg PO DAILY 30 Days Qty: 90 3RF carbidopa-levodopa 25-100 mg tablet 1 tab PO QID Qty: 360 3RF Rx Instructions: TAKE 1 TABLET FOUR TIMES A DAY carvedilol 25 mg tablet 25 mg PO BID Qty: 180 3RF Rx Instructions: TAKE 1 TABLET TWICE A DAY losartan 100 mg tablet See Rx Instructions .ROUTE .COMPLEX Qty: 90 3RF Dose Instruction: TAKE 1 TABLET DAILY Rx Instructions: TAKE 1 TABLET DAILY insulin aspart U-100 [Novolog FlexPen U-100 Insulin] 100 unit/mL (3 mL) insulin pen 40 unit SQ AC Qty: 50 3RF Rx Instructions: TID with meals insulin glargine [Lantus Solostar U-100 Insulin] 100 unit/mL (3 mL) insulin pen 80 unit SQ HS Qty: 90 3RF tamsulosin 0.4 mg capsule 0.4 mg PO DAILY Qty: 30 0RF sulfamethoxazole-trimethoprim [Bactrim DS] 800-160 mg tablet 1 tab PO BID 10 Days Qty: 20 0RF paroxetine HCl 40 mg tablet See Rx Instructions .ROUTE .COMPLEX Qty: 90 3RF Dose Instruction: TAKE 1 TABLET DAILY Rx Instructions: TAKE 1 TABLET DAILY omeprazole 20 mg capsule,delayed release(DR/EC) 20 mg PO BID Qty: 90 3RF Rx Instructions: TAKE 1 CAPSULE TWICE A DAY atorvastatin 40 mg tablet See Rx Instructions .ROUTE .COMPLEX Qty: 90 3RF Dose Instruction: TAKE 1 TABLET 1 TIME EACH DAY AT BEDTIME Rx Instructions: TAKE 1 TABLET 1 TIME EACH DAY AT BEDTIME oxybutynin chloride 5 mg tablet extended release 24hr 5 mg PO DAILY Qty: 30 2RF gabapentin 400 mg capsule 400 mg PO BIDP PRN (Reason: pain) Qty: 180 0RF cephalexin 500 mg capsule 500 mg PO TID 10 Days Qty: 30 0RF doxycycline hyclate 100 mg tablet 100 mg PO BID Qty: 20 0RF hydrocodone-acetaminophen 5-325 mg tablet 1 tab PO BID PRN (Reason: pain) Qty: 60 0RF trazodone 50 mg tablet 50 mg PO HS Rx Instructions: TAKE 1 TABLET AT BEDTIME FOR INSOMNIA quetiapine 100 mg tablet 100 mg PO HS Rx Instructions: TAKE 1 TABLET AT BEDTIME Referrals Follow up/Referrals: Provider,Referral, [Primary Care Provider] - See instructions Clinical Impressions Clinical Impression: KJ (acute kidney injury) Discharge ED Provider: Flash Guthrie Adult HPI <Flash Guthrie MD - Last Filed: 04/21/23 16:48> General Chief complaint: Weakness Stated complaint: weakness Time Seen by Provider: 04/21/23 10:34 History of Present Illness HPI narrative: Patient presents with generalized weakness, fall out of bed unwitnessed yesterday, decreased p.o. intake, drowsiness, gradual in onset over the past 72 hours, constant, stable in course. He denies any pain at this time. No reported fevers or chills. Patient describes recent dysuria, in the absence of flank pain or history of urolithiasis. No missed doses of medications, changes in medications, or new medications. No shortness of breath, no chest pain, no numbness or tingling outside of bilateral lower extremity neuropathy. No sick contacts. He does report difficulty urinating over the past 48 hours. Family at bedside reports history of cystitis, confirms no known history of urolithiasis. He has history of Parkinson's disease, chronic pain, and type 2 diabetes. Please note that above description of symptoms, in this electronic medical record under categorization of recalled from ER triage doctor by RN are reflective of an initial nursing assessment, however, is not reflective of my full history and physical exam that was personally taken and clarified. Consequentially, this preceding description of symptoms, which may include the patient's categorized chief complaint in the EMR, do not reflect my personal clinical impression, and the ultimate description of history of present illness and patient stated complaints should be deferred to this section of the note. Unless stated otherwise or congruent with this section of the note, additional signs, symptoms, or incongruence should be interpreted as inaccurate with my clinical impression. Related Data Home Medications Medication Instructions Recorded Confirmed quetiapine 100 mg tablet 100 mg PO HS Insomnia 06/05/22 03/06/23 trazodone 50 mg tablet 50 mg PO HS Insomnia 06/05/22 03/06/23 Previous Rx's Medication Instructions Recorded paroxetine HCl 40 mg tablet See Rx Instructions .Route 07/10/22 .COMPLEX #90 tabs allopurinol 300 mg tablet 300 mg PO DAILY gout #90 tabs 08/03/22 aspirin 81 mg chewable tablet 81 mg PO DAILY 30 days #90 tabs 08/03/22 blood-glucose meter,continuous #1 ea 08/03/22 (Dexcom G7 Cigar Head Piercer) blood-glucose sensor (Dexcom G7 #1 ea 08/03/22 Sensor device) carbidopa 25 mg-levodopa 100 mg 1 tab PO QID Tremors #360 tabs 08/03/22 tablet carvedilol 25 mg tablet 25 mg PO BID High blood pressure 08/03/22 #180 tabs levothyroxine 25 mcg tablet 25 mcg PO DAILY hypothyroidism #90 08/03/22 tabs losartan 100 mg tablet See Rx Instructions .Route 08/03/22 .COMPLEX #90 tabs insulin aspart U-100 100 unit/mL 40 unit (0.4 mL) SQ AC Diabetes 08/31/22 (3 mL) subcutaneous pen (Novolog #50 mL FlexPen U-100 Insulin aspart) insulin glargine 100 unit/mL (3 80 unit (0.8 mL) SQ HS #90 mL 08/31/22 mL) subcutaneous pen (Lantus Solostar U-100 Insulin) tamsulosin 0.4 mg capsule 0.4 mg PO DAILY #30 caps 08/31/22 omeprazole 20 mg capsule,delayed 20 mg PO BID Acid reflux #90 caps 02/12/23 release atorvastatin 40 mg tablet See Rx Instructions .Route 02/13/23 .COMPLEX #90 tabs sulfamethoxazole 800 1 tab PO BID 10 days #20 tabs 03/06/23 mg-trimethoprim 160 mg tablet (Bactrim DS) oxybutynin chloride 5 mg 5 mg PO DAILY #30 tabs 03/07/23 tablet,extended release 24 hr gabapentin 400 mg capsule 400 mg PO BIDP PRN pain #180 caps 03/20/23 cephalexin 500 mg capsule 500 mg PO TID 10 days #30 caps 04/03/23 doxycycline hyclate 100 mg tablet 100 mg PO BID #20 tabs 04/03/23 hydrocodone 5 mg-acetaminophen 325 1 tab PO BID PRN pain #60 tabs 04/03/23 mg tablet Allergies Allergy/AdvReac Type Severity Reaction Status Date / Time No Known Allergies Allergy Verified 03/06/23 14:00 [facility] <Flash Guthrie MD - Last Filed: 04/21/23 16:48> [facility] Disclaimer: The information contained in this section may have been updated after the patient was seen, as this information can be updated by other users. Medical History (Updated 04/21/23 @ 18:29 by Anthony Mccrary MD) Decreased mobility History of osteomyelitis Osteomyelitis Surgical History (Updated 03/06/23 @ 14:58 by JAMILA Lin) History of amputation of toe History of colonoscopy History of laparoscopic cholecystectomy Social History Smoking Status: Unknown if ever smoked alcohol intake: never substance use type: denies use current occupational status: unemployed Travel in the last 8 weeks: None household members: family housing: house number of children: 1 caffeine: Yes <Flash Guthrie MD - Last Filed: 04/21/23 16:48> ROS Obtained: Yes Systems reviewed as appropriate & no additional complaints except as documented As per HPI Physical Exam <Flash Guthrie MD - Last Filed: 04/21/23 16:48> General General appearance: alert Comment: Drowsy but arousable, oriented and able to answer questions appropriately. Head Head exam: atraumatic and normocephalic Eye Eye exam: Present normal appearance Neck Neck exam: Present normal inspection and other (Mild midline tenderness to palpation in cervical spine, reports chronic) Chest Chest inspection: Present normal inspection and symmetric chest wall rise Respiratory Respiratory exam: Present normal lung sounds bilaterally; Absent respiratory distress Cardiovascular Cardiovascular exam: Present regular rate and normal rhythm Abdominal Exam Abdominal exam: Present soft and tenderness Abdominal tenderness: Present suprapubic and mild Neurological Exam Neurological exam: Present alert and oriented X3 Psychiatric Psychiatric exam: Present normal affect and normal mood Skin Skin exam: Present warm and dry Medical Decision Making <Flash Guthrie MD - Last Filed: 04/21/23 16:48> Medical Records Medical records reviewed: Yes I reviewed the patient's medical records. Simone Inquiry Pt receiving controlled substance: No Vital Signs: 04/21/23 10:32 04/21/23 10:35 04/21/23 11:30 Temperature 100.6 F H Temperature Source Oral Pulse Rate 66 60 Pulse Rate [Radial] 66 Respiratory Rate 18 20 Blood Pressure 132/68 123/64 Blood Pressure [Right Arm] 132/68 Blood Pressure Mean 77 86 Blood Pressure Mean [Right Arm] 89 Blood Pressure Source [Right Arm] Automatic Cuff Blood Pressure Position [Right Arm] Sitting 02 Sat by Pulse Oximetry 96 96 97 Oxygen Delivery Method Room Air Room Air 04/21/23 12:33 04/21/23 13:01 04/21/23 13:31 Temperature Temperature Source Pulse Rate 60 58 L 58 L Pulse Rate [Radial] Respiratory Rate 20 Blood Pressure 127/68 132/66 128/71 Blood Pressure [Right Arm] Blood Pressure Mean 91 89 Blood Pressure Mean [Right Arm] Blood Pressure Source [Right Arm] Blood Pressure Position [Right Arm] 02 Sat by Pulse Oximetry 98 99 98 Oxygen Delivery Method Room Air 04/21/23 14:00 04/21/23 14:31 04/21/23 15:25 Temperature Temperature Source Pulse Rate 65 61 64 Pulse Rate [Radial] Respiratory Rate 22 Blood Pressure 185/82 H 186/78 H 195/85 H Blood Pressure [Right Arm] Blood Pressure Mean 93 Blood Pressure Mean [Right Arm] Blood Pressure Source [Right Arm] Blood Pressure Position [Right Arm] 02 Sat by Pulse Oximetry 97 97 95 Oxygen Delivery Method Room Air 04/21/23 16:00 04/21/23 18:00 Temperature Temperature Source Pulse Rate 64 58 L Pulse Rate [Radial] Respiratory Rate 22 Blood Pressure 186/82 H 186/82 H Blood Pressure [Right Arm] Blood Pressure Mean 110 116 Blood Pressure Mean [Right Arm] Blood Pressure Source [Right Arm] Blood Pressure Position [Right Arm] 02 Sat by Pulse Oximetry 97 96 Oxygen Delivery Method Room Air Lab Data Lab Results 04/21/23 10:37: SARS-CoV-2 (PCR) Not detected, Influenza A Untype (PCR) Not detected, Influenza Type B (PCR) Not detected 04/21/23 10:45: WBC 8.8, RBC 4.08 L, Hgb 13.0 L, Hct 39.1 L, MCV 95.8 H, MCH 31.7 H, MCHC 33.1, RDW 15.0, Plt Count 208, MPV 8.1, Neut % (Auto) 81.7 H, Lymph % (Auto) 12.4, [place] % (Auto) 4.8, Eos % (Auto) 0.4, Baso % (Auto) 0.7, Neut # (Auto) 7.2, Lymph # (Auto) 1.1, [place] # (Auto) 0.4, Eos # (Auto) 0.0, Baso # (Auto) 0.1, Sodium 133 L, Potassium 4.2, Chloride 98, Carbon Dioxide 29, Anion Gap 10.2, BUN 19, Creatinine 2.30 H, Estimated Creat Clear 32, Estimated GFR 28 L, Est GFR ( Amer) 34 L, Glucose 332 H, Calcium 7.5 L, Total Bilirubin 0.6, AST 65 H, ALT 13, Alkaline Phosphatase 167 H, Total Protein 7.6, Albumin 3.6, Globulin 4.0 H, Albumin/Globulin Ratio 0.9 L, TSH 3.49, Free T4 1.03 04/21/23 11:53: VBG pH 7.27 L, VBG pCO2 57.1 H, VBG pO2 33.5, VBG HCO3 25.5, VBG Total CO2 27.2 H, VBG O2 Saturation 57.5, VBG Base Excess -1.5, VBG Lactic Acid 2.1 H 04/21/23 15:28: Urine Color Yellow, Urine Appearance Clear, Urine pH 6.0, Ur Specific [place] 1.015, Urine Protein 2+, Urine Glucose (UA) 1+, Urine Ketones Negative, Urine Blood 3+, Urine Nitrate Negative, Urine Bilirubin Negative, Urine Urobilinogen 0.2, Ur Leukocyte Esterase 1+ A, Urine RBC 5-10, Urine WBC 10-20, Ur Squamous Epith Cells None, Urine Bacteria None, Urine Yeast 2+ 04/21/23 17:05: Lactate 1.3 04/21/23 10:45 04/21/23 10:45 Orders (Tests/Meds): ED MEDICATIONS Generic Name Dose Route Start Last Admin Trade Name Freq PRN Reason Stop Dose Admin Sodium Chloride 10 ml 04/21/23 11:45 Sodium Chloride 0.9% 10ml Flush Syringe IV 05/21/23 11:44 NEEDED PRN Maintain IV Site Discontinued Medications Generic Name Dose Route Start Last Admin Trade Name Julian PRN Reason Stop Dose Admin Lactated Ringer's 1,000 mls @ 999 mls/hr 04/21/23 11:52 04/21/23 13:09 Lactated Ringer's 1000 Ml Bag IV 04/21/23 12:52 999 mls/hr .Q1H1M ONE Administration Ceftriaxone Sodium 1 gm/ 50 mls @ 100 mls/hr 04/21/23 15:00 04/21/23 15:22 Sodium Chloride IV 05/01/23 14:59 100 mls/hr Q24H ESTHER Administration ORDERS Category Date Time Status CT abdomen pelvis wo con Stat Cat Scan 04/21/23 12:[address] cervical spine wo con Stat Cat Scan 04/21/23 11:[address] head/brain wo con Stat Cat Scan 04/21/23 11:53 Completed XR chest portable Stat Exams 04/21/23 11:54 Completed Complete Blood Count Auto Diff Stat Lab 04/21/23 10:45 Completed Comprehensive Metabolic Panel Stat Lab 04/21/23 10:45 Completed Free T4 (Free Thyroxine) Stat Lab 04/21/23 10:45 Completed Lactic Acid Follow Up (RFLX 1) Stat Lab 04/21/23 17:05 Completed Rapid PCR Covid and Flu A/B Stat Lab 04/21/23 10:37 Completed TSH [Thyroid Stimulating Hormone] Stat Lab 04/21/23 10:45 Completed Urinalysis and Microscopic Stat Lab 04/21/23 15:28 Completed Blood Culture Stat Micro 04/21/23 11:11 Received Urine Culture Stat Micro 04/21/23 14:01 Received VBG [Venous Blood Gas] Stat RT 04/21/23 11:53 Completed Medical Decision Narrative: Patient with history and exam per above presenting for evaluation of drowsiness, fall, generalized weakness and decreased p.o. intake Diagnoses considered include electrolyte abnormality, hypovolemia, DKA, HHS, intracranial hemorrhage, bacteremia, cystitis, pyelonephritis, no clinical evidence at this time to suggest stroke, ACS, or pneumonia ED workup and treatment included: CT head, CT C-spine, chest x-ray, CT abdomen pelvis, CBC, CMP, COVID test, TSH, free T4, urinalysis, urine culture, VBG, patient was treated with IV fluids, of 1 L balance crystalloid, and ceftriaxone 1 g IV for suspected pyelonephritis Labs were independently interpreted by me, significant for no leukocytosis, however acute kidney injury, hyperglycemia, urinalysis pending, VBG with acidosis, respiratory, however lactic acid additionally elevated to 2.1. Suspect respiratory acidosis is secondary to hypoventilation in the setting of mental status changes and systemic infection Imaging was independently visualized and interpreted by me, significant for no acute findings on CT imaging of head and cervical spine, CT abdomen pelvis with evidence of nonobstructive hydronephrosis, and secondary signs concerning for pyelonephritis. Please refer to radiology report for full details. Hospitalist was contacted for evaluation for admission for further treatment of what I suspect is pyelonephritis and acute kidney injury, likely prerenal. Prior to evaluation for admission after discussion hospitalist is requesting urology consult in the instance that hydronephrosis is secondary to occult urolithiasis or stenosis. At this time care was transferred to incoming physician. <Anthony Mccrary MD - Last Filed: 04/21/23 18:31> Vital Signs: 04/21/23 10:32 04/21/23 10:35 04/21/23 11:30 Temperature 100.6 F H Temperature Source Oral Pulse Rate 66 60 Pulse Rate [Radial] 66 Respiratory Rate 18 20 Blood Pressure 132/68 123/64 Blood Pressure [Right Arm] 132/68 Blood Pressure Mean 77 86 Blood Pressure Mean [Right Arm] 89 Blood Pressure Source [Right Arm] Automatic Cuff Blood Pressure Position [Right Arm] Sitting 02 Sat by Pulse Oximetry 96 96 97 Oxygen Delivery Method Room Air Room Air 04/21/23 12:33 04/21/23 13:01 04/21/23 13:31 Temperature Temperature Source Pulse Rate 60 58 L 58 L Pulse Rate [Radial] Respiratory Rate 20 Blood Pressure 127/68 132/66 128/71 Blood Pressure [Right Arm] Blood Pressure Mean 91 89 Blood Pressure Mean [Right Arm] Blood Pressure Source [Right Arm] Blood Pressure Position [Right Arm] 02 Sat by Pulse Oximetry 98 99 98 Oxygen Delivery Method Room Air 04/21/23 14:00 04/21/23 14:31 04/21/23 15:25 Temperature Temperature Source Pulse Rate 65 61 64 Pulse Rate [Radial] Respiratory Rate 22 Blood Pressure 185/82 H 186/78 H 195/85 H Blood Pressure [Right Arm] Blood Pressure Mean 93 Blood Pressure Mean [Right Arm] Blood Pressure Source [Right Arm] Blood Pressure Position [Right Arm] 02 Sat by Pulse Oximetry 97 97 95 Oxygen Delivery Method Room Air 04/21/23 16:00 04/21/23 18:00 Temperature Temperature Source Pulse Rate 64 58 L Pulse Rate [Radial] Respiratory Rate 22 Blood Pressure 186/82 H 186/82 H Blood Pressure [Right Arm] Blood Pressure Mean 110 116 Blood Pressure Mean [Right Arm] Blood Pressure Source [Right Arm] Blood Pressure Position [Right Arm] 02 Sat by Pulse Oximetry 97 96 Oxygen Delivery Method Room Air Lab Data Lab Results 04/21/23 10:37: SARS-CoV-2 (PCR) Not detected, Influenza A Untype (PCR) Not detected, Influenza Type B (PCR) Not detected 04/21/23 10:45: WBC 8.8, RBC 4.08 L, Hgb 13.0 L, Hct 39.1 L, MCV 95.8 H, MCH 31.7 H, MCHC 33.1, RDW 15.0, Plt Count 208, MPV 8.1, Neut % (Auto) 81.7 H, Lymph % (Auto) 12.4, [place] % (Auto) 4.8, Eos % (Auto) 0.4, Baso % (Auto) 0.7, Neut # (Auto) 7.2, Lymph # (Auto) 1.1, [place] # (Auto) 0.4, Eos # (Auto) 0.0, Baso # (Auto) 0.1, Sodium 133 L, Potassium 4.2, Chloride 98, Carbon Dioxide 29, Anion Gap 10.2, BUN 19, Creatinine 2.30 H, Estimated Creat Clear 32, Estimated GFR 28 L, Est GFR ( Amer) 34 L, Glucose 332 H, Calcium 7.5 L, Total Bilirubin 0.6, AST 65 H, ALT 13, Alkaline Phosphatase 167 H, Total Protein 7.6, Albumin 3.6, Globulin 4.0 H, Albumin/Globulin Ratio 0.9 L, TSH 3.49, Free T4 1.03 04/21/23 11:53: VBG pH 7.27 L, VBG pCO2 57.1 H, VBG pO2 33.5, VBG HCO3 25.5, VBG Total CO2 27.2 H, VBG O2 Saturation 57.5, VBG Base Excess -1.5, VBG Lactic Acid 2.1 H 04/21/23 15:28: Urine Color Yellow, Urine Appearance Clear, Urine pH 6.0, Ur Specific [place] 1.015, Urine Protein 2+, Urine Glucose (UA) 1+, Urine Ketones Negative, Urine Blood 3+, Urine Nitrate Negative, Urine Bilirubin Negative, Urine Urobilinogen 0.2, Ur Leukocyte Esterase 1+ A, Urine RBC 5-10, Urine WBC 10-20, Ur Squamous Epith Cells None, Urine Bacteria None, Urine Yeast 2+ 04/21/23 17:05: Lactate 1.3 Orders (Tests/Meds): ED MEDICATIONS Generic Name Dose Route Start Last Admin Trade Name Freq PRN Reason Stop Dose Admin Sodium Chloride 10 ml 04/21/23 11:45 Sodium Chloride 0.9% 10ml Flush Syringe IV 05/21/23 11:44 NEEDED PRN Maintain IV Site Discontinued Medications Generic Name Dose Route Start Last Admin Trade Name Freq PRN Reason Stop Dose Admin Lactated Ringer's 1,000 mls @ 999 mls/hr 04/21/23 11:52 04/21/23 13:09 Lactated Ringer's 1000 Ml Bag IV 04/21/23 12:52 999 mls/hr .Q1H1M ONE Administration Ceftriaxone Sodium 1 gm/ 50 mls @ 100 mls/hr 04/21/23 15:00 04/21/23 15:22 Sodium Chloride IV 05/01/23 14:59 100 mls/hr Q24H ESTHER Administration ORDERS Category Date Time Status CT abdomen pelvis wo con Stat Cat Scan 04/21/23 12:[address] cervical spine wo con Stat Cat Scan 04/21/23 11:[address] head/brain wo con Stat Cat Scan 04/21/23 11:53 Completed XR chest portable Stat Exams 04/21/23 11:54 Completed Complete Blood Count Auto Diff Stat Lab 04/21/23 10:45 Completed Comprehensive Metabolic Panel Stat Lab 04/21/23 10:45 Completed Free T4 (Free Thyroxine) Stat Lab 04/21/23 10:45 Completed Lactic Acid Follow Up (RFLX 1) Stat Lab 04/21/23 17:05 Completed Rapid PCR Covid and Flu A/B Stat Lab 04/21/23 10:37 Completed TSH [Thyroid Stimulating Hormone] Stat Lab 04/21/23 10:45 Completed Urinalysis and Microscopic Stat Lab 04/21/23 15:28 Completed Blood Culture Stat Micro 04/21/23 11:11 Received Urine Culture Stat Micro 04/21/23 14:01 Received VBG [Venous Blood Gas] Stat RT 04/21/23 11:53 Completed Medical Decision Narrative: Patient with history and exam per above presenting for evaluation of drowsiness, fall, generalized weakness and decreased p.o. intake Diagnoses considered include electrolyte abnormality, hypovolemia, DKA, HHS, intracranial hemorrhage, bacteremia, cystitis, pyelonephritis, no clinical evidence at this time to suggest stroke, ACS, or pneumonia ED workup and treatment included: CT head, CT C-spine, chest x-ray, CT abdomen pelvis, CBC, CMP, COVID test, TSH, free T4, urinalysis, urine culture, VBG, patient was treated with IV fluids, of 1 L balance crystalloid, and ceftriaxone 1 g IV for suspected pyelonephritis Labs were independently interpreted by me, significant for no leukocytosis, however acute kidney injury, hyperglycemia, urinalysis pending, VBG with acidosis, respiratory, however lactic acid additionally elevated to 2.1. Suspect respiratory acidosis is secondary to hypoventilation in the setting of mental status changes and systemic infection Imaging was independently visualized and interpreted by me, significant for no acute findings on CT imaging of head and cervical spine, CT abdomen pelvis with evidence of nonobstructive hydronephrosis, and secondary signs concerning for pyelonephritis. Please refer to radiology report for full details. Hospitalist was contacted for evaluation for admission for further treatment of what I suspect is pyelonephritis and acute kidney injury, likely prerenal. Prior to evaluation for admission after discussion hospitalist is requesting urology consult in the instance that hydronephrosis is secondary to occult urolithiasis or stenosis. At this time care was transferred to incoming physician. Mccrary: Upon my assumption of care patient is resting comfortably. He has had good urine output through the Allen catheter. Urinalysis demonstrates WBCs with few red cells but no bacteria or nitrates. Patient did have fever on arrival and did complain of dysuria, but without findings of bacteria or nitrites I do not believe his urine is infected and he does not require antibiotics at this time. I discussed this case with [facility]. Dr. Hurley stated that without visualization of a stone on CT which is gold standard for stone imaging, there is no stone. She states after reviewing this case patient is appropriate for inpatient management of KJ and outpatient urology management for reevaluation of hydronephrosis. I discussed these recommendations with the hospitalist who has excepted the patient for admission Critical Care <Flash Guthrie MD - Last Filed: 04/21/23 16:48> Critical Care Time Critical Care Time: No
--- NOTE | 2023-04-21 10:39 | ECG_ITS ---
APPROVED REPORT Exam: Resting ECG HR:65 bpm ECG Measurements Heart Rate 65 AXES WV 190 P 84 QRSd 92 QRS -10 QT 429 T 1 QTc 441 Conclusion SINUS RHYTHM MINIMAL VOLTAGE CRITERIA FOR LVH, CONSIDER NORMAL VARIANT [MEETS CRITERIA IN ONE OF: R(aVL), S(V1), R(V5), R(V5/V6)+S(V1)] Electronically signed by : EZEQUIEL CASTILLO, 04/21/2023 17:21:34
--- NOTE | 2023-04-21 11:48 | PC.NURSE ---
Dr Guthrie at bedside
--- NOTE | 2023-04-21 11:53 | CT_ITS ---
FINAL REPORT TECHNIQUE: Thin section axial images were obtained from skull base to vertex without contrast. Coronal reconstruction images were obtained from the axial data. Exam was performed using dose reduction technique. CLINICAL HISTORY: fall, head injury COMPARISON: 02/26/2021 FINDINGS: There is age-appropriate atrophy. There is no mass effect or midline shift. There is no intracranial hemorrhage. There is no hydrocephalus. Periventricular low density is likely related to changes of chronic small vessel ischemia. The basilar cisterns are preserved. The posterior fossa is without acute abnormality. No acute soft tissue abnormality. No acute osseous abnormality is identified. IMPRESSION: No acute intracranial abnormality. Atrophy and changes suggesting chronic small vessel ischemia. Authenticated and ERN
--- NOTE | 2023-04-21 11:53 | CT_ITS ---
FINAL REPORT TECHNIQUE: Thin section axial images were obtained through the cervical spine without contrast. Multiplanar reconstruction images were obtained from the axial data. Exam was performed using dose reduction techniques. CLINICAL HISTORY: fall, neck pain FINDINGS: There is no acute fracture or acute malalignment of the cervical spine. There is no evidence of unilateral or bilateral facet lock. Vertebral body height is preserved. There is multilevel degenerative disc disease, most pronounced at C4-5 and C5-6. No acute paraspinal abnormality is identified. IMPRESSION: No acute fracture of the cervical spine. Multilevel degenerative disc disease. Authenticated and ERN
--- NOTE | 2023-04-21 11:54 | XR_ITS ---
FINAL REPORT CLINICAL HISTORY: soa, fever COMPARISON: None. FINDINGS: A portable view of the chest was obtained. Cardiac and mediastinal silhouettes are within normal limits. Lung volumes are low. There is evidence of prior granulomatous disease with minimal right basilar atelectasis or scar.. There is no pleural effusion or pneumothorax. IMPRESSION: Low lung volumes. Otherwise, no acute process on this portable exam. Recommend upright PA and lateral chest x-ray when patient better able to tolerate. Authenticated and ERN
[2023-04-21 12:03] LABS: Coronavirus 19, PCR Not Detected (NotDetected); Influenza A, PCR Not Detected (NotDetected); Influenza B, PCR Not Detected (NotDetected)
[2023-04-21 12:03] LABS: Basophils # 0.1 K/mm3 (0-0.2); Basophils % 0.7 % (0.1-2.0); Eosinophils % 0.4 % (0.1-12.0); Hematocrit 39.1 % (42.0-52.0); Lymphocytes # 1.1 K/mm3 (0.7-4.5); Lymphocytes % 12.4 % (10-50); Mean Corpuscular HGB Conc 33.1 g/dL (31.8-35.4); Mean Corpuscular Hemoglobin 31.7 pg (27.0-31.2); Mean Corpuscular Volume 95.8 fl (80-94); Mean Platelet Volume 8.1 fl (7.4-10.4); Monocytes # 0.4 K/mm3 (0.1-1.0); Monocytes % 4.8 % (1.7-9.3); Neutrophils # 7.2 K/mm3 (1.8-7.8); Neutrophils % 81.7 % (37.0-80.0); Platelet Count 208 K/mm3 (142-424); Red Blood Count 4.08 M/mm3 (4.60-6.20); White Blood Count 8.8 K/mm3 (4.8-10.8)
[2023-04-21 12:04] LABS: Chloride 98 mmol/L (98-107); Potassium 4.2 mmoL/L (3.5-5.1); Sodium 133 mmol/L (136-145)
[2023-04-21 12:06] LABS: Alanine Aminotransferase 13 U/L (12-78); Anion Gap 10.2 mEq/L (5-15); Aspartate Amino Transferase 65 U/L (17-59); Blood Urea Nitrogen 19 mg/dl (9-20); Carbon Dioxide 29 mmol/L (22.0-30.0); Creatinine Clearance Estimated 32 mL/min (50-200); Estimated Glomerular Filt Rate 28 ml/min (>60); GFR (African American) 34 ML/MIN (>60)
[2023-04-21 12:07] LABS: Albumin Level 3.6 g/dl (3.5-5.0); Albumin/Globulin Ratio 0.9 (1.1-1.8); Alkaline Phosphatase 167 U/L (38-126); Bilirubin,Total 0.6 mg/dl (0.2-1.3); Calcium 7.5 mg/dl (8.4-10.2); Glucose 332 mg/dl (74-100); Total Protein,Serum 7.6 g/dl (6.3-8.2)
[2023-04-21 12:09] LABS: VBG Base Excess -1.5 mmol/L (-2.4-2.3); VBG HCO3 25.5 mmol/L (23-30); VBG Oxygen Saturation 57.5 % (50-70); VBG PCO2 57.1 mmol/L (35-51); VBG PH 7.27 mmol/L (7.31-7.41); VBG PO2 33.5 mmol/L (28-40); VBG Total CO2 27.2 mmol/L (23-27)
[2023-04-21 12:10] LABS: Lactate Venous 2.1 mmol/L (0.4-2.0)
--- NOTE | 2023-04-21 12:35 | CT_ITS ---
FINAL REPORT TECHNIQUE: Thin section axial images were obtained from the lung bases to the pubic symphysis without IV contrast. Coronal reconstruction images were obtained from the axial data. Exam was performed using dose reduction technique. CLINICAL HISTORY: abdominal pain, diffuse COMPARISON: 06/04/2022 FINDINGS: The lung bases are clear. There is left hydronephrosis and hydroureter to the level of the urinary bladder. There are no obstructing stones. There are no right renal or ureteral stones. There is no right hydronephrosis. The gallbladder is absent. The unenhanced liver, spleen, adrenal glands, and pancreas are without acute abnormality. There is no evidence of small bowel obstruction. The appendix is normal. There is moderate retained stool. Wall thickening of the urinary bladder was present on the prior exam. Wall thickening is asymmetric to the right with abnormal surrounding attenuation. Findings could be related to chronic cystitis. However, bladder neoplasm can not be excluded. There is no lymphadenopathy or ascites. No acute osseous abnormality is identified. IMPRESSION: Left hydronephrosis and hydroureter to the level of the urinary bladder without obstructing stone. This could be related to recently passed stone. Pyelonephritis not excluded. Wall thickening of the urinary bladder, somewhat asymmetric to the right, could be related to chronic cystitis. Neoplasm not excluded. Reviewed, Interpreted and Dictated by Griselda Valencia MD Transcribed by Sandra Almaguer Authenticated and [facility]
--- NOTE | 2023-04-21 12:39 | PC.NURSE ---
patient provided with a cup of waer and a pillow at this time.
[2023-04-21 12:44] LABS: Thyroid Stimulating Hormone 3.49 uIU/mL (0.465-4.68)
[2023-04-21 12:56] LABS: Free T4 (Free Thyroxine) 1.03 ng/dl (0.78-2.19)
[2023-04-21] MEDS: LACTATED RINGERS 1000ML 1,000 ML 999 ML IV (13:09)
--- NOTE | 2023-04-21 15:12 | PC.NURSE ---
on phone with hospitalist for admission
[2023-04-21] MEDS: CEFTRIAXONE 1 GM 1 GM in 0.9 % SODIUM CHLORIDE 50 ML IV (15:22)
[2023-04-21 15:54] LABS: Microscopic, Urine URINE MICROSCOPIC (MICROSCOPIC)
[2023-04-21 16:08] LABS: Appearance,Urine CLEAR (Clear); Bilirubin,Urine Negative (Negative); Blood, Urine 3+ (Negative); Color,Urine YELLOW (Yellow); Glucose,Urine (UA) 1+ (Negative); Ketones,Urine Negative (Negative); Leukocyte Esterase,Urine 1+ (Negative); Nitrate,Urine Negative (Negative); Protein,Urine 2+ (Negative); Specific Gravity, Urine 1.015 (1.005-1.030); Urobilinogen,Urine 0.2 EU/dl (0.2)
[2023-04-21 16:10] LABS: Reflex Lactic Add Lactic Reflex
[2023-04-21 16:32] LABS: Yeast,Urine 2+ /lpf
--- NOTE | 2023-04-21 16:54 | PC.NURSE ---
placed call to [facility] for urology consult, they are to call back
[2023-04-21 17:29] LABS: Lactic Acid Follow Up (RFLX 1) 1.3 mmol/L (0.7-2.1)
--- NOTE | 2023-04-21 17:29 | PC.NURSE ---
daughter called checking on pt
--- NOTE | 2023-04-21 18:02 | PC.NURSE ---
Dr Mccrary speaking with [facility]
--- NOTE | 2023-04-21 18:43 | PC.NURSE ---
Admissions notified of admit to room 209 for KJ to . OBS.
--- NOTE | 2023-04-21 18:55 | PC.NURSE ---
report called to long on second floor
--- NOTE | 2023-04-21 19:30 | P.HP_ITS ---
History of Present Illness *Admission Date: 04/21/23 *Reason for visit:: KJ *History of present illness: 77 year old male presented to the [facility] ED with c/o generalized weakness, falling out of bed the day prior, and decreased oral intake. PMHX of DM, hypothyroidism, HLD, htn, neuropathy, and hx of osteomyletitis. Pt lives with daughter. He is A/O to person, time, and situation. He does appear to be confused at times. Does not recall what hospital he is in and states he doesn't know why granddaughter brought pt to the ED. The ED workup revealed an elevated creatinine of 2.30, glucose of 332, and left hydroneprosis on ct imaging. His urine demonstrates no nitrates but has 10-20 WBC's and is positive for leukocytes. His head CT reveals no trauma from fall. He is covid/flu negative. He has no leukocytes on blood work. The ED physician consulted the hospitalist team for further medical management. He was given 1L of LR and 1g of Rocephin. I admitted the pt to the medical floor. His urine and blood cultures are pending. I will continue rocephin for broad spectrum coverage and he will receive maintenance fluids. He will also have a consult for physical therapy placed. [facility] Disclaimer: The information contained in this section may have been updated after the patient was seen, as this information can be updated by other users. Medical History (Updated 04/21/23 @ 20:24 by STEPHENIE Lion) Decreased mobility History of osteomyelitis Osteomyelitis Surgical History (Updated 03/06/23 @ 14:58 by JAMILA Lin) History of amputation of toe History of colonoscopy History of laparoscopic cholecystectomy Social History (Updated 04/21/23 @ 20:01 by Melissa Sr RN) Smoking Status: Never smoker alcohol intake: never substance use type: denies use current occupational status: unemployed Travel in the last 8 weeks: None household members: family housing: house number of children: 1 caffeine: Yes Review of Systems Review of Systems Review of systems:: unable to obtain Meds Home Medications and Allergies Home Medications Medication Instructions Recorded Confirmed Type quetiapine 100 mg tablet 100 mg PO HS Mood 06/05/22 04/22/23 History trazodone 50 mg tablet 50 mg PO HS Insomnia 06/05/22 04/22/23 History allopurinol 300 mg tablet 300 mg PO DAILY gout #90 tabs 08/03/22 04/22/23 Rx aspirin 81 mg chewable tablet 81 mg PO DAILY 30 days #90 tabs 08/03/22 04/22/23 Rx blood-glucose meter,continuous #1 ea 08/03/22 04/22/23 Rx (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 G7 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) blood-glucose sensor (Dexcom G7 #1 ea 08/03/22 04/22/23 Rx Sensor device) carbidopa 25 mg-levodopa 100 mg 1 tab PO QID Tremors #360 tabs 08/03/22 04/22/23 Rx tablet carvedilol 25 mg tablet 25 mg PO BID High blood pressure 08/03/22 04/22/23 Rx #180 tabs levothyroxine 25 mcg tablet 25 mcg PO DAILY hypothyroidism #90 08/03/22 04/22/23 Rx tabs insulin aspart U-100 100 unit/mL 40 unit (0.4 mL) SQ AC Diabetes 08/31/22 04/21/23 Rx (3 mL) subcutaneous pen (Novolog #50 mL FlexPen U-100 Insulin aspart) insulin glargine 100 unit/mL (3 80 unit (0.8 mL) SQ HS #90 mL 08/31/22 04/21/23 Rx mL) subcutaneous pen (Lantus Solostar U-100 Insulin) tamsulosin 0.4 mg capsule 0.4 mg PO DAILY #30 caps 08/31/22 04/21/23 Rx omeprazole 20 mg capsule,delayed 20 mg PO BID Acid reflux #90 caps 02/12/23 04/22/23 Rx release oxybutynin chloride 5 mg 5 mg PO DAILY #30 tabs 03/07/23 04/22/23 Rx tablet,extended release 24 hr gabapentin 400 mg capsule 400 mg PO BIDP PRN pain #180 caps 03/20/23 04/22/23 Rx hydrocodone 5 mg-acetaminophen 325 1 tab PO BID PRN pain #60 tabs 04/03/23 04/22/23 Rx mg tablet atorvastatin 40 mg tablet 40 mg PO HS Cholesterol 04/22/23 04/22/23 History losartan 100 mg tablet 100 mg PO DAILY High Blood Pressure 04/22/23 04/22/23 History paroxetine HCl 40 mg tablet 40 mg PO DAILY Mood 04/22/23 04/22/23 History New Prescriptions to Start Prescriptions: Allergies Allergy/AdvReac Type Severity Reaction Status Date / Time No Known Allergies Allergy Verified 03/06/23 14:00 Exam Data for Last 24 hours Vital signs and Labs for Last 24 Hours: Temp Pulse Resp BP Pulse Ox O2 Del Method 100.6 F H 58 L 22 186/82 H 96 Room Air 04/21/23 10:32 04/21/23 18:00 04/21/23 18:00 04/21/23 18:00 04/21/23 18:00 04/21/23 16:00 Laboratory Results - last 24 hr 04/21/23 10:37: SARS-CoV-2 (PCR) Not detected, Influenza A Untype (PCR) Not detected, Influenza Type B (PCR) Not detected 04/21/23 10:45: WBC 8.8, RBC 4.08 L, Hgb 13.0 L, Hct 39.1 L, MCV 95.8 H, MCH 31.7 H, MCHC 33.1, RDW 15.0, Plt Count 208, MPV 8.1, Neut % (Auto) 81.7 H, Lymph % (Auto) 12.4, [place] % (Auto) 4.8, Eos % (Auto) 0.4, Baso % (Auto) 0.7, Neut # (Auto) 7.2, Lymph # (Auto) 1.1, [place] # (Auto) 0.4, Eos # (Auto) 0.0, Baso # (Auto) 0.1, Sodium 133 L, Potassium 4.2, Chloride 98, Carbon Dioxide 29, Anion Gap 10.2, BUN 19, Creatinine 2.30 H, Estimated Creat Clear 32, Estimated GFR 28 L, Est GFR ( Amer) 34 L, Glucose 332 H, Calcium 7.5 L, Total Bilirubin 0.6, AST 65 H, ALT 13, Alkaline Phosphatase 167 H, Total Protein 7.6, Albumin 3.6, Globulin 4.0 H, Albumin/Globulin Ratio 0.9 L, TSH 3.49, Free T4 1.03 04/21/23 11:53: VBG pH 7.27 L, VBG pCO2 57.1 H, VBG pO2 33.5, VBG HCO3 25.5, VBG Total CO2 27.2 H, VBG O2 Saturation 57.5, VBG Base Excess -1.5, VBG Lactic Acid 2.1 H 04/21/23 15:28: Urine Color Yellow, Urine Appearance Clear, Urine pH 6.0, Ur Specific [place] 1.015, Urine Protein 2+, Urine Glucose (UA) 1+, Urine Ketones Negative, Urine Blood 3+, Urine Nitrate Negative, Urine Bilirubin Negative, Urine Urobilinogen 0.2, Ur Leukocyte Esterase 1+ A, Urine RBC 5-10, Urine WBC 10-20, Ur Squamous Epith Cells None, Urine Bacteria None, Urine Yeast 2+ 04/21/23 17:05: Lactate 1.3 I & O for Last 24 hours: Intake & Output 04/18/23 04/19/23 04/20/23 04/21/23 23:59 23:59 23:59 23:59 Output Total 900 / 900 Balance -900 / -900 Weight 81.647 kg Constitutional Constitutional: chronically ill appearing *Routine HEENT Exam Head: Present normocephalic and atraumatic Eye: Present EOMI ENT: Present mucous membranes dry *Routine Neck Exam Neck: Present full ROM *Routine Respiratory Exam Respiratory: Present wheezes and symmetric chest movement *Routine Cardiovascular Exam Cardiovascular: Present RRR *Routine Abdominal Exam Abdominal: Present soft and normoactive bowel sounds; Absent tenderness *Routine Rectal Exam Rectal:: deferred *Routine Genitalia Exam Genitalia:: deferred *Routine Extremities Exam Extremities: Present full ROM Comments: toe ampuations on right foot *Routine Skin Exam Skin: Present intact and wounds (left fifth digit on left foot ) *Routine Neurological Exam Neurological: Present alert and oriented X3 Assessment and Plan *Assessment and plan (1) KJ (acute kidney injury): Status: Acute Category: Medical Code(s): N17.9 - Acute kidney failure, unspecified (2) Pyelonephritis: Status: Acute Category: Medical Code(s): N12 - Tubulo-interstitial nephritis, not specified as acute or chronic (3) Diabetes mellitus: Status: Chronic Category: Medical Code(s): E11.9 - Type 2 diabetes mellitus without complications (4) Hypothyroidism: Status: Chronic Category: Medical Code(s): E03.9 - Hypothyroidism, unspecified (5) Parkinson disease: Status: Chronic Category: Medical Code(s): G20 - Parkinson's disease (6) HTN (hypertension): Status: Acute Category: Medical Code(s): I10 - Essential (primary) hypertension (7) HLD (hyperlipidemia): Status: Acute Category: Medical Code(s): E78.5 - Hyperlipidemia, unspecified Plan 77 year old male presented to the [facility] ED with c/o generalized weakness, falling out of bed the day prior, and decreased oral intake. PMHX of DM, hypothyroidism, HLD, htn, neuropathy, and hx of osteomyletitis. Pt lives with daughter. He is A/O to person, time, and situation. He does appear to be confused at times. Does not recall what hospital he is in and states he doesn't know why granddaughter brought pt to the ED. The ED workup revealed an elevated creatinine of 2.30, glucose of 332, and left hydroneprosis on ct imaging. His urine demonstrates no nitrates but has 10-20 WBC's and is positive for leukocytes. His head CT reveals no trauma from fall. He is covid/flu negative. He has no leukocytes on blood work. The ED physician consulted the hospitalist team for further medical management. He was given 1L of LR and 1g of Rocephin. I admitted the pt to the medical floor. His urine and blood cultures are pending. I will continue rocephin for broad spectrum coverage and he will receive maintenance fluids. He will also have a consult for physical therapy placed. KJ PYELONEPHRITIS -Creatinine of 2.30 -maintenance fluids NS @ 100mL/hr -urine culture and blood culture pending -urine demonstrates no nitrates but has 10-20 WBC's and is positive for leukocytes - left hydroneprosis on ct imaging with out obstruction -continue Rocephin for broad spectrum coverage for pyelonephritis -repeat cbc and bmp DM -ssi insulin -diabetic diet -PT consult HYPOTHYROIDISM PARKINSON DIESASE HTN HLD -awaiting home med req -TSH 3.49 and t4 1.03 FULL CODE DIABETIC DIET DVT: HEPARIN SQ Attending attestation Patient was seen and evaluated at the bedside myself, agree with JOLIE note.
[2023-04-21 19:39] LABS: Hemoglobin A1C 9.1 % (4.0-6.0)
--- NOTE | 2023-04-21 19:49 | PC.NURSE ---
Patient arrived to floor via stretcher from ED at 17:27.
[2023-04-21 20:17] LABS: POC Glucose,Bedside 213 (70-110)
[2023-04-21] MEDS: HEPARIN SODIUM 5,000 UNIT/ML VIAL 5000 UNIT SQ (21:19)
[2023-04-21] MEDS: 0.9 % SODIUM CHLORIDE 1000ML 1,000 ML 100 ML IV (21:19)
[2023-04-21] MEDS: humaLOG 100 UNITS/ML 3ML VIAL (SSI) SQ (21:19)
[2023-04-22 04:00] VITALS: BP 127/62; PULSE 66; RESP 17; TEMP 36.8; O2SAT 92; BMI 28.0
[2023-04-22 07:27] LABS: Basophils # 0.1 K/mm3 (0-0.2); Eosinophils # 0.1 K/mm3 (0.0-0.4); Monocytes # 0.9 K/mm3 (0.1-1.0)
[2023-04-22 07:37] LABS: Basophils % 0.6 % (0.1-2.0); Hematocrit 34.3 % (42.0-52.0); Lymphocytes # 1.5 K/mm3 (0.7-4.5); Lymphocytes % 15.5 % (10-50); Mean Corpuscular HGB Conc 32.9 g/dL (31.8-35.4); Mean Corpuscular Hemoglobin 30.8 pg (27.0-31.2); Mean Corpuscular Volume 93.8 fl (80-94); Mean Platelet Volume 8.2 fl (7.4-10.4); Monocytes % 8.6 % (1.7-9.3); Neutrophils # 7.3 K/mm3 (1.8-7.8); Neutrophils % 74.3 % (37.0-80.0); Platelet Count 218 K/mm3 (142-424); Red Blood Count 3.65 M/mm3 (4.60-6.20); White Blood Count 9.9 K/mm3 (4.8-10.8)
[2023-04-22 07:39] LABS: Anion Gap 7.5 mEq/L (5-15); Blood Urea Nitrogen 19 mg/dl (9-20); Calcium 6.9 mg/dl (8.4-10.2); Carbon Dioxide 30 mmol/L (22.0-30.0); Chloride 103 mmol/L (98-107); Creatinine Clearance Estimated 44 mL/min (50-200); Estimated Glomerular Filt Rate 35 ml/min (>60); GFR (African American) 42 ML/MIN (>60); Glucose 151 mg/dl (74-100); Potassium 3.5 mmoL/L (3.5-5.1); Sodium 137 mmol/L (136-145)
[2023-04-22 07:43] LABS: POC Glucose,Bedside 152 (70-110)
[2023-04-22 07:46] LABS: Hemoglobin 11.3 g/dL (14.1-18.0)
[2023-04-22 08:00] VITALS: BP 166/79; PULSE 71; RESP 18; TEMP 36.8; O2SAT 95
[2023-04-22] MEDS: HEPARIN SODIUM 5,000 UNIT/ML VIAL 5000 UNIT SQ ×2 (09:35→17:08)
[2023-04-22] MEDS: ALLOPURINOL 300MG TABLET 300 MG PO (09:36)
[2023-04-22] MEDS: CARBIDOPA/LEVODOPA 25/100MG TABLET 1 EACH PO ×4 (09:36→20:49)
[2023-04-22] MEDS: PANTOPRAZOLE 40MG TABLET 40 MG PO ×2 (09:36→20:48)
[2023-04-22] MEDS: PARoxetine 20MG TABLET 40 MG PO (09:36)
[2023-04-22] MEDS: OXYBUTYNIN 5MG TAB 5 MG PO (09:36)
[2023-04-22] MEDS: LEVOTHYROXINE 25MCG (0.025MG) TAB 25 MCG PO (09:36)
[2023-04-22] MEDS: CARVEDILOL 25MG TABLET 25 MG PO ×2 (09:36→20:49)
[2023-04-22] MEDS: ASPIRIN 81MG CHEWABLE TABLET 81 MG PO (09:36)
[2023-04-22] MEDS: TAMSULOSIN 0.4MG CAPSULE 0.400000000000000022 MG PO (09:36)
--- NOTE | 2023-04-22 09:40 | HMH.PHAINT1 ---
Pharmacy Intervention Comments: MEDICATION RECONCILIATION COMPLETED ON PATIENT USING EXTERNAL FILL HISTORY FROM PHARMACY AND LIST FROM PCP OFFICE. -REBEKAH SAMANIEGO, JOELD
[2023-04-22] MEDS: humaLOG 100 UNITS/ML 3ML VIAL (SSI) SQ ×3 (11:39→20:49)
[2023-04-22] MEDS: 0.9 % SODIUM CHLORIDE 1000ML 1,000 ML 100 ML IV (11:41)
[2023-04-22 11:51] LABS: POC Glucose,Bedside 209 (70-110)
--- NOTE | 2023-04-22 12:56 | EXP.PN ---
Subjective *Date: 04/22/23 *Time: 12:56 Interval history: patient is seen at bedside. Denied CP, SOB, he mentions he is feeling better, he does not any complains today Exam Data for Last 24 hours Vital signs and Labs for Last 24 Hours: Temp Pulse Resp BP Pulse Ox O2 Del Method 98.3 F 71 18 166/79 H 95 Room Air 04/22/23 08:00 04/22/23 08:00 04/22/23 08:00 04/22/23 08:00 04/22/23 08:00 04/22/23 08:00 Laboratory Results - last 24 hr 04/21/23 10:45: Hemoglobin A1c 9.1 H, Free T4 1.03 04/21/23 15:28: Urine Color Yellow, Urine Appearance Clear, Urine pH 6.0, Ur Specific [place] 1.015, Urine Protein 2+, Urine Glucose (UA) 1+, Urine Ketones Negative, Urine Blood 3+, Urine Nitrate Negative, Urine Bilirubin Negative, Urine Urobilinogen 0.2, Ur Leukocyte Esterase 1+ A, Urine RBC 5-10, Urine WBC 10-20, Ur Squamous Epith Cells None, Urine Bacteria None, Urine Yeast 2+ 04/21/23 17:05: Lactate 1.3 04/21/23 20:10: POC Glucose 213 H 04/22/23 05:59: POC Glucose 152 H 04/22/23 07:02: WBC 9.9, RBC 3.65 L, Hgb 11.3 L D, Hct 34.3 L, MCV 93.8, MCH 30.8, MCHC 32.9, RDW 15.0, Plt Count 218, MPV 8.2, Neut % (Auto) 74.3, Lymph % (Auto) 15.5, [place] % (Auto) 8.6, Eos % (Auto) 1.0, Baso % (Auto) 0.6, Neut # (Auto) 7.3, Lymph # (Auto) 1.5, [place] # (Auto) 0.9, Eos # (Auto) 0.1, Baso # (Auto) 0.1, Sodium 137, Potassium 3.5, Chloride 103, Carbon Dioxide 30, Anion Gap 7.5, BUN 19, Creatinine 1.90 H, Estimated Creat Clear 44, Estimated GFR 35 L, Est GFR ( Amer) 42 L D, Glucose 151 H D, Calcium 6.9 L 04/22/23 11:39: POC Glucose 209 H I & O for Last 24 hours: Intake & Output 04/19/23 04/20/23 04/21/23 04/22/23 23:59 23:59 23:59 23:59 Intake Total 850 / 850 Output Total 900 / 2100 1950 / 1950 Balance -900 / -2100 -1100 / -1100 Weight 81.647 kg 93.984 kg Constitutional Constitutional: no acute distress *Routine HEENT Exam Head: Present normocephalic Eye: Present EOMI and PERRL ENT: Present mucous membranes moist *Routine Neck Exam Neck: Present supple; Absent lymphadenopathy *Routine Respiratory Exam Respiratory: Present CTA bilaterally *Routine Cardiovascular Exam Cardiovascular: Present RRR *Routine Abdominal Exam Abdominal: Present soft and normoactive bowel sounds; Absent tenderness *Routine Extremities Exam Extremities: Absent cyanosis, clubbing or edema *Routine Skin Exam Skin: Present warm; Absent rash *Routine Neurological Exam Neurological: Present alert and oriented X3 Assessment and Plan *Assessment and plan (1) KJ (acute kidney injury): Status: Acute Category: Medical Code(s): N17.9 - Acute kidney failure, unspecified (2) Pyelonephritis: Status: Acute Category: Medical Code(s): N12 - Tubulo-interstitial nephritis, not specified as acute or chronic (3) Diabetes mellitus: Status: Chronic Category: Medical Code(s): E11.9 - Type 2 diabetes mellitus without complications (4) Hypothyroidism: Status: Chronic Category: Medical Code(s): E03.9 - Hypothyroidism, unspecified (5) Parkinson disease: Status: Chronic Category: Medical Code(s): G20 - Parkinson's disease (6) HTN (hypertension): Status: Acute Category: Medical Code(s): I10 - Essential (primary) hypertension (7) HLD (hyperlipidemia): Status: Acute Category: Medical Code(s): E78.5 - Hyperlipidemia, unspecified Plan 77 year old male presented to the [facility] ED with c/o generalized weakness, falling out of bed the day prior, and decreased oral intake. PMHX of DM, hypothyroidism, HLD, htn, neuropathy, and hx of osteomyletitis. Pt lives with daughter. KJ PYELONEPHRITIS -Creatinine of 2.30 on admission, baseline <1 -continue IVF, Cr is improving -urine culture and blood culture pending -urine demonstrates no nitrates but has 10-20 WBC's and is positive for leukocytes - left hydroneprosis on ct imaging with out obstruction -continue Rocephin for broad spectrum coverage for pyelonephritis -repeat cbc and bmp DM -ssi insulin -diabetic diet HYPOTHYROIDISM PARKINSON DIESASE HTN HLD -awaiting home med req -TSH 3.49 and t4 1.03 FULL CODE DIABETIC DIET DVT: HEPARIN SQ continue IV abx, monitor Cr, continue IVF, dc 1-2 days
[2023-04-22] MEDS: CEFTRIAXONE SODIUM 1 GM in 0.9 % SODIUM CHLORIDE 50 ML IV (14:58)
--- NOTE | 2023-04-22 15:01 | HMH.PTEV ---
Physical Therapy Evaluation Rehab PT IP Evaluation Start: 04/21/23 20:26 Freq: ONCE Status: Active Protocol: Document 04/22/23 14:58 MANOLO (Rec: 04/22/23 15:01 PHOBERTRAM [id number]) Subjective/History History History 77 yowm adm to [facility] with KJ. He reports feeling better this pm. He lives with dayghter, no steps to enter the home, and he generally uses a RW for ambulation at baseline. He has PMH of DM, hypothyroidism, HLD, htn, neuropathy, and hx of osteomyletitis. Subjective Subjective Pt reports no c/o this pm, he readily agrees to mobility assessment. New diagnosis of cancer in past 12 No months? Rehab PT IP Eval Objective Appearance Patient Behavior Appropriate Patient Orientation Person,Place,Time Difficulty following instructions none Speech Pattern Clear Ambulation Patient Able to Ambulate Yes Ambulation Observation IP General Gait Pattern Observation Wide Based Gait,Shuffling Step Ambulation Distance (feet) 5 Ambulation Assistive Device Rolling Walker Ambulation Ability Contact Guard/Hand Hold Balance Ability to Arise Able, uses arms to help Sitting Balance Steady, safe Standing Balance Steady, wide stance Dynamic Sitting Balance Ability Good Dynamic Standing Balance Ability Fair Transfers Bed Transfer Ability Contact Guard/Hand Hold Chair Transfer Ability Contact Guard/Hand Hold Sit to Stand Bed Transfer Ability Contact Guard/Hand Hold Sit to Stand Chair Transfer Ability Contact Guard/Hand Hold Rehab PT IP prob,goals,plan Problems Date of Evaluation: 04/22/23 PT IP Problems Bed Mobility,Transfers,Gait Rehab Potential Rehab Potential Good Plan PT Intervention Plan Bed Mobility,Transfers,Gait, Therapeutic Exercise PT Plan Frequency Daily Duration LOS Discharge Goals Bed Transfer Ability Supervision/Stand by Sit to Stand Chair Transfer Ability Supervision/Stand by Ambulation Assistive Device Rolling Walker Ambulation Distance (feet) 25 Discharge Plan PT Discharge Plan Pt is currently appropriate to return home once medically stable for d/c. Skilled therapy is needed to prevent further debility, falls, injury, or wounds. Eval Complexity Eval Charge Codes 57050 - High Complexity PHYSICIAN CERTIFICATION: I certify the specified therapy services for Tomas Crocker are required, authorized, and reviewed every 30 days.
--- NOTE | 2023-04-22 15:35 | PC.NURSE ---
physical therapy was at [facility] today. pt had complaints of heartburn/indigestion. requesting home dose omeprazole 20mg, notified amaya. adequate uop, yellow in color with sediment. had to flush catheter x1 due to sediment clogging tube. no other issues with [facility]ano. cb within reach no concerns at this time.
[2023-04-22 15:51] VITALS: BP 138/67; PULSE 65; RESP 16; TEMP 37.6; O2SAT 97
[2023-04-22 17:27] LABS: POC Glucose,Bedside 259 (70-110)
[2023-04-22 20:00] VITALS: BP 168/69; PULSE 58; RESP 16; TEMP 36.8; O2SAT 98
[2023-04-22 20:10] LABS: POC Glucose,Bedside 284 (70-110)
[2023-04-22] MEDS: QUETIAPINE 100MG TABLET 100 MG PO (20:48)
[2023-04-22] MEDS: TRAZODONE 50MG TABLET 50 MG PO (20:49)
[2023-04-22] MEDS: ATORVASTATIN 40MG TABLET 40 MG PO (20:49)
[2023-04-23] MEDS: HEPARIN SODIUM 5,000 UNIT/ML VIAL 5000 UNIT SQ ×2 (01:56→09:28)
[2023-04-23 04:00] VITALS: BP 146/74; PULSE 60; RESP 16; TEMP 37; O2SAT 96; BMI 27.4
[2023-04-23] MEDS: 0.9 % SODIUM CHLORIDE 1000ML 1,000 ML 100 ML IV (04:53)
[2023-04-23 05:56] LABS: POC Glucose,Bedside 176 (70-110)
[2023-04-23] MEDS: humaLOG 100 UNITS/ML 3ML VIAL (SSI) SQ ×2 (06:10→10:49)
[2023-04-23] MEDS: LEVOTHYROXINE 25MCG (0.025MG) TAB 25 MCG PO (06:10)
[2023-04-23 07:24] LABS: Basophils % 0.6 % (0.1-2.0); Eosinophils # 0.2 K/mm3 (0.0-0.4); Eosinophils % 3.1 % (0.1-12.0); Hematocrit 32.8 % (42.0-52.0); Hemoglobin 10.6 g/dL (14.1-18.0); Lymphocytes # 1.7 K/mm3 (0.7-4.5); Mean Corpuscular HGB Conc 32.4 g/dL (31.8-35.4); Mean Corpuscular Hemoglobin 30.4 pg (27.0-31.2); Mean Corpuscular Volume 93.8 fl (80-94); Mean Platelet Volume 8.8 fl (7.4-10.4); Monocytes # 0.5 K/mm3 (0.1-1.0); Monocytes % 7.8 % (1.7-9.3); Neutrophils # 4.5 K/mm3 (1.8-7.8); Neutrophils % 64.5 % (37.0-80.0); Platelet Count 191 K/mm3 (142-424); White Blood Count 6.9 K/mm3 (4.8-10.8)
[2023-04-23 07:38] LABS: Anion Gap 8.4 mEq/L (5-15); Blood Urea Nitrogen 18 mg/dl (9-20); Calcium 7.1 mg/dl (8.4-10.2); Carbon Dioxide 29 mmol/L (22.0-30.0); Chloride 107 mmol/L (98-107); Creatinine Clearance Estimated 55 mL/min (50-200); Estimated Glomerular Filt Rate 46 ml/min (>60); GFR (African American) 55 ML/MIN (>60); Glucose 184 mg/dl (74-100); Potassium 3.4 mmoL/L (3.5-5.1); Sodium 141 mmol/L (136-145)
--- NOTE | 2023-04-23 07:54 | P.DS_ITS ---
General Admission date:: 04/21/23 Discharge date: 04/23/23 HPI HPI HPI: 77 year old male presented to the [facility] ED with c/o generalized weakness, falling out of bed the day prior, and decreased oral intake. PMHX of DM, hypothyroidism, HLD, htn, neuropathy, and hx of osteomyletitis. Pt lives with daughter. He is A/O to person, time, and situation. He does appear to be confused at times. Does not recall what hospital he is in and states he doesn't know why granddaughter brought pt to the ED. The ED workup revealed an elevated creatinine of 2.30, glucose of 332, and left hydroneprosis on ct imaging. His urine demonstrates no nitrates but has 10-20 WBC's and is positive for leukocytes. His head CT reveals no trauma from fall. He is covid/flu negative. He has no leukocytes on blood work. The ED physician consulted the hospitalist team for further medical management. He was given 1L of LR and 1g of Rocephin. I admitted the pt to the medical floor. His urine and blood cultures are pending. I will continue rocephin for broad spectrum coverage and he will receive maintenance fluids. He will also have a consult for physical therapy placed. Hospital Course Hospital Course Hospital Course: 77 year old male presented to the [facility] ED with c/o generalized weakness, falling out of bed the day prior, and decreased oral intake. PMHX of DM, hypothyroidism, HLD, htn, neuropathy, and hx of osteomyletitis. Pt lives with daughter. KJ PYELONEPHRITIS -Patient presented with elevated creatinine at 2.3. Concern for hydronephrosis and hydroureter on the left on CT imaging of abdomen. No justice obstruction, possible passage of stone. Treated with IV fluids and monitored for improvement. Urine concerning for UTI. Initiated on Rocephin. Urine culture still negative at time of discharge but pending. Will transition from ceftriaxone to cefdinir to complete 7-day course of antibiotics. White cell count has normalized to 6.9. Patient afebrile. Overall doing well. Stable to discharge home with family to complete antibiotic course. Home health ordered at discharge due to generalized weakness and history of Parkinson's disease. -Continue home oxybutynin 5 mg extended release and tamsulosin 0.4 mg nightly -Kidney function improving on day of discharge to 1.5. Recommend repeat labs at follow-up with PCP DM: Diabetes uncontrolled with A1c at 9.1. Treated with sliding scale insulin during admission. Resume home regimen at discharge. Resume home regimen for chronic conditions including hypothyroid, Parkinson's, hypertension, hyperlipidemia. See med rec for full details. Hypothyroid stable with TSH 3.49 and t4 1.03 Stable for discharge home to complete antibiotics. Overall doing well. Exam Data for Last 24 hours Vital signs and Labs for Last 24 Hours: Temp Pulse Resp BP Pulse Ox O2 Del Method 98.6 F 60 16 146/74 H 96 Room Air 04/23/23 04:00 04/23/23 04:00 04/23/23 04:00 04/23/23 04:00 04/23/23 04:00 04/23/23 07:00 Laboratory Results - last 24 hr 04/22/23 11:39: POC Glucose 209 H 04/22/23 17:06: POC Glucose 259 H 04/22/23 20:03: POC Glucose 284 H 04/23/23 05:49: POC Glucose 176 H 04/23/23 06:37: WBC 6.9 D, RBC 3.50 L, Hgb 10.6 L, Hct 32.8 L, MCV 93.8, MCH 30.4, MCHC 32.4, RDW 15.0, Plt Count 191, MPV 8.8, Neut % (Auto) 64.5, Lymph % (Auto) 24.0, [place] % (Auto) 7.8, Eos % (Auto) 3.1, Baso % (Auto) 0.6, Neut # (Auto) 4.5, Lymph # (Auto) 1.7, [place] # (Auto) 0.5, Eos # (Auto) 0.2, Baso # (Auto) 0.0, Sodium 141, Potassium 3.4 L, Chloride 107, Carbon Dioxide 29, Anion Gap 8.4, BUN 18, Creatinine 1.50 H D, Estimated Creat Clear 55, Estimated GFR 46 L, Est GFR ( Amer) 55 L D, Glucose 184 H D, Calcium 7.1 L I & O for Last 24 hours: Intake & Output 04/20/23 04/21/23 04/22/23 04/23/23 23:59 23:59 23:59 23:59 Intake Total 2051 / 2051 760 / 760 Output Total / 2099 3100 / 4300 1800 / 1800 Balance -900 / -2099 -1049 / -2249 -1040 / -1040 Weight 81.647 kg 93.984 kg 92.034 kg Constitutional Constitutional: no acute distress, average body habitus, chronically ill appearing and cooperative *Routine HEENT Exam Head: Present normocephalic Eye: Present EOMI and PERRL ENT: Present mucous membranes moist *Routine Neck Exam Neck: Present supple; Absent lymphadenopathy *Routine Respiratory Exam Respiratory: Present CTA bilaterally; Absent rhonchi, wheezes or crackles *Routine Cardiovascular Exam Cardiovascular: Present RRR *Routine Abdominal Exam Abdominal: Present soft and normoactive bowel sounds; Absent tenderness *Routine Rectal Exam Patient deferred: visual exam *Routine Exam Patient deferred: penile exam *Routine Extremities Exam Extremities: Absent cyanosis, clubbing or edema *Routine Skin Exam Skin: Present warm; Absent rash *Routine Neurological Exam Neurological: Present alert, oriented X3 and moving all extremities; Absent altered mental status Results Data Completed and Pending Labs on day of discharge: Labs from last 24 hours 04/23/23 04/23/23 04/22/23 06:37 05:49 20:03 WBC 6.9 D RBC 3.50 L Hgb 10.6 L Hct 32.8 L MCV 93.8 MCH 30.4 MCHC 32.4 RDW 15.0 Plt Count 191 MPV 8.8 Neut % (Auto) 64.5 Lymph % (Auto) 24.0 [place] % (Auto) 7.8 Eos % (Auto) 3.1 Baso % (Auto) 0.6 Neut # (Auto) 4.5 Lymph # (Auto) 1.7 [place] # (Auto) 0.5 Eos # (Auto) 0.2 Baso # (Auto) 0.0 Sodium 141 Potassium 3.4 L Chloride 107 Carbon Dioxide 29 Anion Gap 8.4 BUN 18 Creatinine 1.50 H D Estimated Creat Clear 55 Estimated GFR 46 L Est GFR ( Amer) 55 L D Glucose 184 H D POC Glucose 176 H 284 H Calcium 7.1 L 04/22/23 04/22/23 17:06 11:39 WBC RBC Hgb Hct MCV MCH MCHC RDW Plt Count MPV Neut % (Auto) Lymph % (Auto) [place] % (Auto) Eos % (Auto) Baso % (Auto) Neut # (Auto) Lymph # (Auto) [place] # (Auto) Eos # (Auto) Baso # (Auto) Sodium Potassium Chloride Carbon Dioxide Anion Gap BUN Creatinine Estimated Creat Clear Estimated GFR Est GFR ( Amer) Glucose POC Glucose 259 H 209 H Calcium DS: Diagnosis Discharge Diagnosis (1) KJ (acute kidney injury): Status: Acute Code(s): N17.9 - Acute kidney failure, unspecified (2) Pyelonephritis: Status: Acute Code(s): N12 - Tubulo-interstitial nephritis, not specified as acute or chronic (3) Diabetes mellitus: Status: Chronic Code(s): E11.9 - Type 2 diabetes mellitus without complications (4) Hypothyroidism: Status: Chronic Code(s): E03.9 - Hypothyroidism, unspecified (5) Parkinson disease: Status: Chronic Code(s): G20 - Parkinson's disease (6) HTN (hypertension): Status: Acute Code(s): I10 - Essential (primary) hypertension (7) HLD (hyperlipidemia): Status: Acute Code(s): E78.5 - Hyperlipidemia, unspecified Meds Home Medications and Allergies Home Medications Medication Instructions Recorded Confirmed Type quetiapine 100 mg tablet 100 mg PO HS Mood 06/05/22 04/22/23 History trazodone 50 mg tablet 50 mg PO HS Insomnia 06/05/22 04/22/23 History allopurinol 300 mg tablet 300 mg PO DAILY gout #90 tabs 08/03/22 04/22/23 Rx aspirin 81 mg chewable tablet 81 mg PO DAILY 30 days #90 tabs 08/03/22 04/22/23 Rx blood-glucose meter,continuous #1 ea 08/03/22 04/22/23 Rx (Dexcom G7 Heat Treatment Technician) blood-glucose sensor (Dexcom G7 #1 ea 08/03/22 04/22/23 Rx Sensor device) carbidopa 25 mg-levodopa 100 mg 1 tab PO QID Tremors #360 tabs 08/03/22 04/22/23 Rx tablet carvedilol 25 mg tablet 25 mg PO BID High blood pressure 08/03/22 04/22/23 Rx #180 tabs levothyroxine 25 mcg tablet 25 mcg PO DAILY hypothyroidism #90 08/03/22 04/22/23 Rx tabs insulin aspart U-100 100 unit/mL 40 unit (0.4 mL) SQ AC Diabetes 08/31/22 04/21/23 Rx (3 mL) subcutaneous pen (Novolog #50 mL FlexPen U-100 Insulin aspart) insulin glargine 100 unit/mL (3 80 unit (0.8 mL) SQ HS #90 mL 08/31/22 04/21/23 Rx mL) subcutaneous pen (Lantus Solostar U-100 Insulin) tamsulosin 0.4 mg capsule 0.4 mg PO DAILY #30 caps 08/31/22 04/21/23 Rx omeprazole 20 mg capsule,delayed 20 mg PO BID Acid reflux #90 caps 02/12/23 04/22/23 Rx release oxybutynin chloride 5 mg 5 mg PO DAILY #30 tabs 03/07/23 04/22/23 Rx tablet,extended release 24 hr gabapentin 400 mg capsule 400 mg PO BIDP PRN pain #180 caps 03/20/23 04/22/23 Rx hydrocodone 5 mg-acetaminophen 325 1 tab PO BID PRN pain #60 tabs 04/03/23 04/22/23 Rx mg tablet atorvastatin 40 mg tablet 40 mg PO HS Cholesterol 04/22/23 04/22/23 History losartan 100 mg tablet 100 mg PO DAILY High Blood Pressure 04/22/23 04/22/23 History paroxetine HCl 40 mg tablet 40 mg PO DAILY Mood 04/22/23 04/22/23 History cefdinir 300 mg capsule 300 mg PO BID 5 days #10 caps 04/23/23 Rx New Prescriptions to Start Prescriptions: Frederick Courtney Allergies Allergy/AdvReac Type Severity Reaction Status Date / Time No Known Allergies Allergy Verified 03/06/23 14:00 Discharge Plan Disposition Patient Disposition: Home, Self-Care Condition: Good Discharge Order Discharge Orders: Discharge Order (Routine); Ordered 04/23/23 Ordered By: Frederick Chinchilla Follow up Plan Follow up with: Chantel Ruggiero PA [Physician Lamination Technician] - 04/26/23 2:00 pm Rick Bee MD [Staff Physician] - 06/04/23 10:15 am (hydronephrosis) Prescriptions/Medication Reconciliation: New cefdinir 300 mg capsule 300 mg PO BID 5 Days Qty: 10 0RF Rx Instructions: first dose due 04/22 evening Continued levothyroxine 25 mcg tablet 25 mcg PO DAILY Qty: 90 4RF (DME) Dexcom G7 Sensor Device See Rx Instructions .Route Qty: 1 5RF Rx Instructions: As directed (DME) Dexcom G7 Heat Treatment Technician Misc See Rx Instructions .Route Qty: 1 0RF Rx Instructions: As directed allopurinol 300 mg tablet 300 mg PO DAILY Qty: 90 3RF aspirin 81 mg tablet,chewable 81 mg PO DAILY 30 Days Qty: 90 3RF carbidopa-levodopa 25-100 mg tablet 1 tab PO QID Qty: 360 3RF carvedilol 25 mg tablet 25 mg PO BID Qty: 180 3RF insulin aspart U-100 [Novolog FlexPen U-100 Insulin] 100 unit/mL (3 mL) insulin pen 40 unit SQ AC Qty: 50 3RF Rx Instructions: TID with meals insulin glargine [Lantus Solostar U-100 Insulin] 100 unit/mL (3 mL) insulin pen 80 unit SQ HS Qty: 90 3RF tamsulosin 0.4 mg capsule 0.4 mg PO DAILY Qty: 30 0RF omeprazole 20 mg capsule,delayed release(DR/EC) 20 mg PO BID Qty: 90 3RF oxybutynin chloride 5 mg tablet extended release 24hr 5 mg PO DAILY Qty: 30 2RF gabapentin 400 mg capsule 400 mg PO BIDP PRN (Reason: pain) Qty: 180 0RF hydrocodone-acetaminophen 5-325 mg tablet 1 tab PO BID PRN (Reason: pain) Qty: 60 0RF atorvastatin 40 mg tablet 40 mg PO HS paroxetine HCl 40 mg tablet 40 mg PO DAILY losartan 100 mg tablet 100 mg PO DAILY trazodone 50 mg tablet 50 mg PO HS quetiapine 100 mg tablet 100 mg PO HS Problem Reconciliation Problems Reviewed?: Yes Patient Discharge Instructions ACTIVITY: Continue current activity DIET: continue same diet Patient Instructions: DI for Kidney Infection, Acute Kidney Injury, DI for Acute Kidney Injury, Catheter-Associated Urinary Tract Infection Providers Primary Care Provider: Provider,Referral Admit Provider: Kishan Yarbrough Attending Provider: Kishan Yarbrough
[2023-04-23 08:00] VITALS: BP 159/73; PULSE 62; RESP 20; TEMP 37.4; O2SAT 96
[2023-04-23] MEDS: PANTOPRAZOLE 40MG TABLET 40 MG PO (09:25)
[2023-04-23] MEDS: OXYBUTYNIN 5MG TAB 5 MG PO (09:25)
[2023-04-23] MEDS: ALLOPURINOL 300MG TABLET 300 MG PO (09:25)
[2023-04-23] MEDS: TAMSULOSIN 0.4MG CAPSULE 0.400000000000000022 MG PO (09:26)
[2023-04-23] MEDS: CARBIDOPA/LEVODOPA 25/100MG TABLET 1 EACH PO (09:26)
[2023-04-23] MEDS: CARVEDILOL 25MG TABLET 25 MG PO (09:26)
[2023-04-23] MEDS: PARoxetine 20MG TABLET 40 MG PO (09:27)
[2023-04-23] MEDS: ASPIRIN 81MG CHEWABLE TABLET 81 MG PO (09:28)
--- NOTE | 2023-04-23 10:22 | SW/DCPLANNER ---
Addendum entered by Guerline Angel 04/23/23 14:51: Brent w/ [facility] stated that home health services will resume this week for this patient. Original Note: I spoke w/ patient regarding plans at time of discharge. PT/OT evaluated patient and recommended home w/ home health services. Patient stated that he is currently established w/ [facility]. I will continue to follow up w/ patient until medically stable for discharge and resume services w/ [facility]. Discharge date is unknown at this time.
[2023-04-23 11:01] LABS: POC Glucose,Bedside 247 (70-110)
--- NOTE | 2023-04-23 12:41 | HMH.PHAINT1 ---
Pharmacy Intervention Comments: DISCHARGE MEDICATION COUNSELING PROVIDED. DISCUSSED STARTING CEFDINIR, FIRST DOSE TONIGHT. THIS IS AN ANTIBIOTIC, N/V/D POSSIBLE, TAKE WITH FOOD TWICE DAILY. NO QUESTIONS VERBALIZED AT THIS TIME.
--- NOTE | 2023-04-24 14:56 | CARE MANAGER ---
Called and spoke with patient regarding recent discharge. Patient stated that he has started new medication and was aware of scheduled f/u appts. No concerns voiced at time of call.
--- NOTE | 2023-04-27 10:35 | PC.NURSE ---
urine culture results received. Pt was admitted and d/c by Dr. Chinchilla. Cx shows mixed urogenital zoya .
== END 2023-04-23 14:15 | disposition home health service (06) | DRG 690 ==
LOC: ER 18:29 → 2ND 18:55
PROVIDERS: Nurse Practitioner Critical Care Medicine; Admitting Provider Internal Medicine; Emergency Provider Emergency Medicine; Visit Provider Internal Medicine
DX: N12 Tubulo-interstitial nephritis, not specified as acute or chronic (principal); N17.9 Acute kidney failure, unspecified; E03.9 Hypothyroidism, unspecified; I10 Essential (primary) hypertension; E78.5 Hyperlipidemia, unspecified; E11.42 Type 2 diabetes mellitus with diabetic polyneuropathy; Z79.4 Long term (current) use of insulin
CPT/HCPCS: 36415; 70450; 71045; 72125; 74176; 80048; 80053; 81001; 82803; 82962; 83036; 83605; 84439; 84443; 85025; 87040; 87086; 87636; 93005; 97163; 97530; 99285; J0696

== ENCOUNTER 2023-05-08 08:01 | Inpatient (IN) | payer MEDICARE, OTHER, SELFPAY ==
[2023-05-08] VITALS (16 sets, daily range): BP systolic 141–163; BP diastolic 62–74; PULSE 63–86; RESP 18–26; TEMP 36.8–39.7; O2SAT 90–95; BMI 27.9; BMI 26.6; BMI 27.7
--- NOTE | 2023-05-08 07:59 | ECG_ITS ---
APPROVED REPORT Exam: Resting ECG HR:85 bpm ECG Measurements Heart Rate 85 AXES FL 168 P 68 QRSd 104 QRS -9 QT 375 T -7 QTc 417 Conclusion SINUS RHYTHM NONSPECIFIC ST & T-WAVE ABNORMALITY BORDERLINE ECG UNCONFIRMED REPORT Electronically signed by : JOHNATHON JUNIOR, 05/09/2023 06:10:46
--- NOTE | 2023-05-08 08:01 | XR_ITS ---
FINAL REPORT CLINICAL HISTORY: ams, fever FINDINGS: SINGLE VIEW CHEST Cardiomegaly is noted. The mediastinum is within normal limits. There is a right lung basilar opacity. The left lung is clear. There is no evidence of pneumothorax. The bony thorax is intact. IMPRESSION: Right lung basilar opacity which may represent atelectasis or pneumonia. Authenticated and ERN
--- NOTE | 2023-05-08 08:04 | PC.NURSE ---
Dr. Chery at [facility] for pt eval
--- NOTE | 2023-05-08 08:05 | PC.NURSE ---
Rt notified of [facility] order
[2023-05-08 08:12] LABS: Basophils # 0.1 K/mm3 (0-0.2); Basophils % 0.6 % (0.1-2.0); Eosinophils # 0.1 K/mm3 (0.0-0.4); Eosinophils % 1.3 % (0.1-12.0); Hematocrit 34.3 % (42.0-52.0); Hemoglobin 11.6 g/dL (14.1-18.0); Lymphocytes # 0.7 K/mm3 (0.7-4.5); Lymphocytes % 6.7 % (10-50); Mean Corpuscular HGB Conc 33.8 g/dL (31.8-35.4); Mean Corpuscular Volume 91.5 fl (80-94); Mean Platelet Volume 7.8 fl (7.4-10.4); Monocytes # 0.9 K/mm3 (0.1-1.0); Monocytes % 8.2 % (1.7-9.3); Neutrophils # 8.9 K/mm3 (1.8-7.8); Neutrophils % 83.1 % (37.0-80.0); Platelet Count 202 K/mm3 (142-424); Red Blood Count 3.74 M/mm3 (4.60-6.20); Red Cell Distribution Width 15.2 % (11.5-17.5); White Blood Count 10.7 K/mm3 (4.8-10.8)
[2023-05-08 08:13] LABS: Lactate Venous 1.5 mmol/L (0.4-2.0); VBG Base Excess 3.3 mmol/L (-2.4-2.3); VBG HCO3 26.5 mmol/L (23-30); VBG Oxygen Saturation 98.9 % (50-70); VBG PCO2 35.1 mmol/L (35-51); VBG PO2 155.6 mmol/L (28-40); VBG Total CO2 27.6 mmol/L (23-27)
[2023-05-08] MEDS: 0.9 % SODIUM CHLORIDE 1000ML 1,000 ML 999 ML IV ×2 (08:14→09:40)
--- NOTE | 2023-05-08 08:15 | ED_ITS ---
Discharge Plan Disposition Patient Disposition: Home, Self-Care Chief Complaint: Fever Clinical Impressions Clinical Impression: Acute UTI, Fever, Delirium Discharge ED Provider: Benji Chery General Adult HPI General Chief complaint: Fever Stated complaint: Weakness Time Seen by Provider: 05/08/23 08:01 History of Present Illness HPI narrative: This is a 77-year-old male with history of hypertension, hyperlipidemia, diabetes, CKD, Parkinson's disease, hypothyroidism, chronic deconditioning presenting with fever and altered mental status. Patient senior living at [facility] called out today because patient was lethargic. EMS arrived, patient intermittently answering questions, unsure of baseline. On arrival to the emergency department here at [facility], patient denying any symptoms, however unable to answer orientation questions, including name. Again, unsure of baseline. Despite issues with orientation, patient has no complaints. Related Data Home Medications Medication Instructions Recorded Confirmed atorvastatin 40 mg tablet 40 mg PO HS Cholesterol 04/22/23 05/08/23 losartan 100 mg tablet 100 mg PO DAILY High Blood Pressure 04/22/23 05/08/23 paroxetine HCl 40 mg tablet 40 mg PO DAILY Mood 04/22/23 05/08/23 Previous Rx's Medication Instructions Recorded allopurinol 300 mg tablet 300 mg PO DAILY gout #90 tabs 08/03/22 aspirin 81 mg chewable tablet 81 mg PO DAILY 30 days #90 tabs 08/03/22 carbidopa 25 mg-levodopa 100 mg 1 tab PO QID Tremors #360 tabs 08/03/22 tablet carvedilol 25 mg tablet 25 mg PO BID High blood pressure 08/03/22 #180 tabs levothyroxine 25 mcg tablet 25 mcg PO DAILY hypothyroidism #90 08/03/22 tabs insulin aspart U-100 100 unit/mL 40 unit (0.4 mL) SQ AC Diabetes 08/31/22 (3 mL) subcutaneous pen (Novolog #50 mL FlexPen U-100 Insulin aspart) insulin glargine 100 unit/mL (3 80 unit (0.8 mL) SQ HS #90 mL 08/31/22 mL) subcutaneous pen (Lantus Solostar U-100 Insulin) tamsulosin 0.4 mg capsule 0.4 mg PO DAILY #30 caps 08/31/22 omeprazole 20 mg capsule,delayed 20 mg PO BID Acid reflux #90 caps 02/12/23 release oxybutynin chloride 5 mg 5 mg PO DAILY #30 tabs 03/07/23 tablet,extended release 24 hr quetiapine 100 mg tablet 100 mg PO HS Mood #90 tabs 05/03/23 trazodone 50 mg tablet 50 mg PO HS Insomnia #90 tabs 05/03/23 blood sugar diagnostic (Advanced #200 ea 05/07/23 Glucose Meter Test Strips) blood-glucose meter (Advanced #1 ea 05/07/23 Glucose Meter) gabapentin 400 mg capsule 400 mg PO BIDP PRN pain #180 caps 05/07/23 hydrocodone 5 mg-acetaminophen 325 1 tab PO BID PRN pain #60 tabs 05/07/23 mg tablet lancets (Accu-Chek Softclix #200 ea 05/07/23 Lancets) Allergies Allergy/AdvReac Type Severity Reaction Status Date / Time No Known Allergies Allergy Verified 03/06/23 14:00 [facility] Disclaimer: The information contained in this section may have been updated after the patient was seen, as this information can be updated by other users. Medical History (Updated 05/08/23 @ 10:22 by Benji Chery MD) Decreased mobility History of osteomyelitis Osteomyelitis Surgical History (Updated 03/06/23 @ 14:58 by JAMILA Lin) History of amputation of toe History of colonoscopy History of laparoscopic cholecystectomy Social History (Updated 04/21/23 @ 20:01 by Melissa Sr RN) Smoking Status: Never smoker alcohol intake: never substance use type: denies use current occupational status: unemployed Travel in the last 8 weeks: None household members: family housing: house number of children: 1 caffeine: Yes ROS Obtained: Yes unobtainable due to mental status Physical Exam General General appearance: alert and in no apparent distress Head Head exam: atraumatic and normocephalic Eye Eye exam: Present normal appearance, PERRL and EOMI ENT ENT exam: Present mucous membranes dry; Absent mucous membranes moist Neck Neck exam: Absent tenderness, meningismus or lymphadenopathy Chest Chest inspection: Present normal inspection, symmetric chest wall rise and tenderness Respiratory Respiratory exam: Present wheezes (Right-sided isolated); Absent normal lung sounds bilaterally, respiratory distress, stridor or accessory muscle use Cardiovascular Cardiovascular exam: Present regular rate and normal rhythm; Absent tachycardia or systolic murmur Abdominal Exam Abdominal exam: Present soft; Absent distention, tenderness, guarding, rebound or rigidity exam: Absent urethral discharge or scrotal swelling Extremities Exam Extremities exam: Present other (Superficial abrasions/excoriations bilateral legs. Amputation right foot digits); Absent edema Back Exam Back exam: Present normal inspection Neurological Exam Neurological exam: Present other (NIHSS 0.) Medical Decision Making Medical Records Medical records reviewed: Yes I reviewed the patient's medical records. Simone Inquiry Pt receiving controlled substance: No Simone was queried for this patient: No Vital Signs: 05/08/23 08:00 05/08/23 08:01 05/08/23 08:30 Temperature 103.5 F H Temperature Source Rectal Pulse Rate 84 76 Pulse Rate [Right Radial] 86 Respiratory Rate 18 26 H 20 Blood Pressure 163/67 H 146/63 H Blood Pressure [Right Arm] 152/67 H Blood Pressure Mean 99 109 Blood Pressure Mean [Right Arm] 95 Blood Pressure Source [Right Arm] Automatic Cuff Blood Pressure Position [Right Arm] Supine 02 Sat by Pulse Oximetry 93 L 92 L Oxygen Delivery Method Room Air Room Air 05/08/23 08:41 05/08/23 09:00 05/08/23 09:30 Temperature Temperature Source Rectal Pulse Rate 75 72 Pulse Rate [Right Radial] Respiratory Rate 18 Blood Pressure 141/62 H 142/64 H Blood Pressure [Right Arm] Blood Pressure Mean 104 93 Blood Pressure Mean [Right Arm] Blood Pressure Source [Right Arm] Blood Pressure Position [Right Arm] 02 Sat by Pulse Oximetry 94 L 92 L Oxygen Delivery Method 05/08/23 09:45 Temperature 99.8 F H Temperature Source Oral Pulse Rate Pulse Rate [Right Radial] Respiratory Rate Blood Pressure Blood Pressure [Right Arm] Blood Pressure Mean Blood Pressure Mean [Right Arm] Blood Pressure Source [Right Arm] Blood Pressure Position [Right Arm] 02 Sat by Pulse Oximetry Oxygen Delivery Method Lab Data Lab Results 05/08/23 07:56: WBC 10.7, RBC 3.74 L, Hgb 11.6 L, Hct 34.3 L, MCV 91.5, MCH 31.0, MCHC 33.8, RDW 15.2, Plt Count 202, MPV 7.8, Neut % (Auto) 83.1 H, Lymph % (Auto) 6.7 L, Wolfe % (Auto) 8.2, Eos % (Auto) 1.3, Baso % (Auto) 0.6, Neut # (Auto) 8.9 H, Lymph # (Auto) 0.7, Wolfe # (Auto) 0.9, Eos # (Auto) 0.1, Baso # (Auto) 0.1, ESR > 140 H, APTT 30.3, Sodium 138, Potassium 2.3 L*, Chloride 101, Carbon Dioxide 35 H, Anion Gap 4.3 L, BUN 14, Creatinine 1.50 H, Estimated Creat Clear 56, Estimated GFR 46 L, Est GFR ( Amer) 55 L, Glucose 126 H, C alcium 7.1 L, Magnesium 0.9 L 05/08/23 07:56: Magnesium 0.9 L, Total Bilirubin 0.7, AST 37, ALT 18, Alkaline Phosphatase 131 H, Total Creatine Kinase 69, Troponin I 0.04 H, NT-Pro-B Natriuret Pep 1360 H, Total Protein 6.5, Albumin 2.9 L, Globulin 3.6 H, A lbumin/Globulin Ratio 0.8 L, Lipase 93, TSH 2.62, Thyroxine (T4) 7.6, S alicylates < 1.0 L, Acetone Level None detected 05/08/23 08:01: Urine Color Yellow, Urine Appearance Clear, Urine pH 6.5, Ur Specific [place] 1.020, Urine Protein 3+, Urine Glucose (UA) 2+, Urine Ketones Negative, Urine Blood 2+, Urine Nitrate Positive, Urine Bilirubin Negative, Urine Urobilinogen 0.2, Ur Leukocyte Esterase 1+ A, Urine RBC 3-5, Urine WBC Tntc, Ur Squamous Epith Cells Occasional, Urine Bacteria 3+ 05/08/23 08:06: VBG pH 7.50 H, VBG pCO2 35.1, VBG pO2 155.6 H, VBG HCO3 26.5, V BG Total CO2 27.6 H, VBG O2 Saturation 98.9 H, VBG Base Excess 3.3 H, VBG Lactic Acid 1.5 05/08/23 08:55: SARS-CoV-2 (PCR) Not detected, Influenza A Untype (PCR) Not detected, Influenza Type B (PCR) Not detected 05/08/23 07:56 05/08/23 07:56 Orders (Tests/Meds): ED MEDICATIONS Generic Name Dose Route Start Last Admin Trade Name Freq PRN Reason Stop Dose Admin Acetaminophen 650 mg 05/08/23 10:09 Acetaminophen 325mg Tab PO 06/07/23 10:08 Q4HP PRN Fever or Mild Pain (1-3) Vancomycin/PEG/NADA/Lysine/Water 1.75 gm in 350 mls @ 175 mls/hr 05/08/23 08:30 05/08/23 09:29 Vancomycin 1.75gm/350ml (Peg) Premix IV 05/08/23 10:29 175 mls/hr ONCE ONE Administration Potassium Chloride/Water 100 mls @ 50 mls/hr 05/08/23 08:40 05/08/23 09:29 Potassium Chloride 20meq/100ml Ivpb IV 05/08/23 14:39 50 mls/hr Q2H ESTHER Administration Insulin Human Lispro 0 unit 05/08/23 11:00 Humalog 100 Units/Ml 3ml Vial (Ssi) SQ 06/07/23 10:59 ACHS ESTHER Protocol Miscellaneous 1 each 05/08/23 08:15 Vancomycin Consult Request NOTAPPLIC 06/07/23 08:14 CONSULT PHARMACY ESTHER Discontinued Medications Generic Name Dose Route Start Last Admin Trade Name Freq PRN Reason Stop Dose Admin Acetaminophen 1,000 mg 05/08/23 08:12 05/08/23 08:16 Acetaminophen 1,000mg/100ml Vial IV 05/08/23 08:13 1,000 mg ONCE ONE Administration Sodium Chloride 1,000 mls @ 999 mls/hr 05/08/23 08:01 05/08/23 08:14 Sod Chlor 0.9% 1000ml Bag IV 05/08/23 09:01 999 mls/hr .Q1H1M ONE Administration Ampicillin Sodium/Sulbactam 100 mls @ 200 mls/hr 05/08/23 08:12 05/08/23 08:20 Sodium 3 gm/ Sodium Chloride IV 05/08/23 08:13 200 mls/hr ONCE ONE Administration Sodium Chloride 1,000 mls @ 999 mls/hr 05/08/23 08:39 05/08/23 09:40 Sod Chlor 0.9% 1000ml Bag IV 05/08/23 09:39 999 mls/hr .Q1H1M ONE Administration Magnesium Sulfate 2 gm in 50 mls @ 50 mls/hr 05/08/23 08:41 05/08/23 09:29 Magnesium Sulfate 2gm/50ml Premix IV 05/08/23 09:40 50 mls/hr ONCE ONE Administration ORDERS Category Date Time Status CT head/brain wo con Stat Cat Scan 05/08/23 08:51 Taken XR chest portable Stat Exams 05/08/23 08:01 Taken Acetone, Serum (Rapid) Stat Lab 05/08/23 07:56 Completed CK [Creatine Kinase] Stat Lab 05/08/23 07:56 Completed Complete Blood Count Auto Diff Stat Lab 05/08/23 07:56 Completed Comprehensive Metabolic Panel Stat Lab 05/08/23 07:56 Completed ESR [Erythrocyte Sedimentation Rate] Stat Lab 05/08/23 07:56 Completed HBsAg Screen Stat Lab 05/08/23 08:55 Received HIV Panel [id number] Stat Lab 05/08/23 08:55 Received Hepatitis B Surf Ab Quant Stat Lab 05/08/23 08:55 Received Hepatitis C Antibody Stat Lab 05/08/23 08:55 Received Lipase Stat Lab 05/08/23 07:56 Completed Magnesium Stat Lab 05/08/23 07:56 Completed Magnesium Stat Lab 05/08/23 07:56 Completed NT Pro Brain Natriuretic Pep. Stat Lab 05/08/23 07:56 Completed PTT [Activated Partial Thrombo Time] Stat Lab 05/08/23 07:56 Completed Rapid PCR Covid and Flu A/B Stat Lab 05/08/23 08:55 Completed Salicylate Stat Lab 05/08/23 07:56 Completed T4 (Thyroxine) Stat Lab 05/08/23 07:56 Completed TSH [Thyroid Stimulating Hormone] Stat Lab 05/08/23 07:56 Completed Troponin I Q3H Lab 05/08/23 11:15 Ordered Troponin I Q3H Lab 05/08/23 14:15 Ordered Troponin I Stat Lab 05/08/23 07:56 Completed Urinalysis and Microscopic Stat Lab 05/08/23 08:01 Completed Blood Culture Stat Micro 05/08/23 08:23 Received Urine Culture Stat Micro 05/08/23 08:01 Received Venous Blood Gas Stat RT 05/08/23 08:06 Completed Medical Decision Narrative: This is a 77-year-old male with history of hypertension, hyperlipidemia, diabetes, CKD, Parkinson's disease, hypothyroidism, chronic deconditioning presenting with fever and altered mental status. Patient senior living at [facility] called out today because patient was lethargic. EMS arrived, patient intermittently answering questions, unsure of baseline. On arrival to the emergency department here at [facility], patient denying any symptoms, however unable to answer orientation questions, including name. Again, unsure of baseline. Despite issues with orientation, patient has no complaints. History was obtained via conversation with EMS. On arrival, patient hemodynamically stable, alert, appropriate, GCS 14, moving all extremities spontaneously, pupils equal and reactive to light. Full physical exam performed and significant for chronically ill-appearing male no acute distress. Answering yes/no questions, unable to answer orientation questions. GCS 14 for confusion. Patient does have isolated wheezes on the right arm pulmonary exam. Pulses are equal and symmetric, patient moving upper and lower extremities symmetrically. Cardiac exam within normal limits, no lower extremity edema. Patient has no evidence of rash. Abdomen soft, nontender, nondistended. No flank tenderness. Dry mucous membranes, febrile, nontachycardic. Differential includes UTI, pneumonia, sepsis, intracranial bleed, delirium, dysautonomia, metabolic abnormality, endocrinologic abnormality, ACS, VA, pneumothorax, among others. Patient was given fluid bolus, bank, Unasyn for symptomatic management and correction of underlying abnormalities. Shortly after arrival, patient found to be febrile, so given IV acetaminophen and empiric antibiotics. Workup independently interpreted and significant for Nonactionable CBC. pH mildly alkalotic, lactate negative. 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 Magnesium low at 0.9, this was also repleted IV. Initial troponin mildly elevated 0.04, delta pending at time of admission. BNP mildly elevated at 1360, but overall nonactionable. Lipase negative, thyroid studies normal. UA with concern for UTI. CT head without acute concern for intracranial hemorrhage.x- ray with edematous features, but no overt pulmonary edema or airspace disease. See radiology read for full review of final results. Independent interpretation of EKG shows sinus rhythm 85 beats a minute no ST or T wave changes concerning for acute ischemia. Good R wave progression, normal axis. AL, QRS, QT intervals within normal limits. Given patient presentation, workup, history, this most likely represents febrile UTI with delirium versus sepsis. Because patient high risk for clinical decompensation, deemed appropriate for inpatient admission. Results were relayed to patient who voiced understanding and patient was agreeable to inpatient admission and management. Patient was admitted to the hospital for further definitive management. Critical Care Critical Care Time Critical Care Time: No
[2023-05-08] MEDS: ACETAMINOPHEN 1,000MG/100ML VIAL 1000 MG IV (08:16)
[2023-05-08 08:19] LABS: Chloride 101 mmol/L (98-107); Sodium 138 mmol/L (136-145)
[2023-05-08] MEDS: AMPICILLIN/SULBACTAM 3 GM in 0.9 % SODIUM CHLORIDE 100 ML IV ×3 (08:20→20:23)
[2023-05-08 08:21] LABS: Alanine Aminotransferase 18 U/L (12-78); Alkaline Phosphatase 131 U/L (38-126); Anion Gap 4.3 mEq/L (5-15); Aspartate Amino Transferase 37 U/L (17-59); Bilirubin,Total 0.7 mg/dl (0.2-1.3); Blood Urea Nitrogen 14 mg/dl (9-20); Carbon Dioxide 35 mmol/L (22.0-30.0); Creatine Kinase 69 U/L (55-170); Creatinine Clearance Estimated 56 mL/min (50-200); Estimated Glomerular Filt Rate 46 ml/min (>60); GFR (African American) 55 ML/MIN (>60)
[2023-05-08 08:22] LABS: Albumin Level 2.9 g/dl (3.5-5.0); Albumin/Globulin Ratio 0.8 (1.1-1.8); Calcium 7.1 mg/dl (8.4-10.2); Globulin 3.6 g/dL (1.3-3.2); Glucose 126 mg/dl (74-100); Lipase 93 U/L (23-300); Total Protein,Serum 6.5 g/dl (6.3-8.2)
[2023-05-08 08:23] LABS: Activated Partial Thrombo Time 30.3 seconds (22.8-30.6)
[2023-05-08 08:32] LABS: Magnesium 0.9 mg/dl (1.6-2.3); NT Pro Brain Natriuretic Pep. 1360 pg/mL (0-450); Salicylate < 1.0 mg/dL (2.0-20.0)
[2023-05-08 08:33] LABS: Microscopic, Urine URINE MICROSCOPIC (MICROSCOPIC)
[2023-05-08 08:34] LABS: Troponin I 0.04 ng/ml (0.00-0.034)
[2023-05-08 08:36] LABS: Appearance,Urine CLEAR (Clear); Bilirubin,Urine Negative (Negative); Blood, Urine 2+ (Negative); Color,Urine YELLOW (Yellow); Glucose,Urine (UA) 2+ (Negative); Ketones,Urine Negative (Negative); Leukocyte Esterase,Urine 1+ (Negative); Nitrate,Urine POSITIVE (Negative); PH,Urine 6.5 (5.0-8.5); Protein,Urine 3+ (Negative); Urobilinogen,Urine 0.2 EU/dl (0.2)
[2023-05-08 08:38] LABS: Potassium 2.3 mmoL/L (3.5-5.1)
--- NOTE | 2023-05-08 08:38 | PC.NURSE ---
Dr. Chery notified of critical potassium
[2023-05-08 08:39] LABS: T4 (Thyroxine) 7.6 ug/dl (5.53-11.0)
[2023-05-08 08:43] LABS: Erythrocyte Sedimentation Rate > 140 mm/hr (0-20)
--- NOTE | 2023-05-08 08:51 | CT_ITS ---
PROCEDURE INFORMATION: Exam: CT Head Without Contrast Exam date and time: 05/08/2023 9:14 AM Age: 77 years old Clinical indication: Altered mental status/memory loss and fever; Additional info: AMS, fever TECHNIQUE: Imaging protocol: Computed tomography of the head without contrast. Radiation optimization: All CT scans at this facility use at least one of these dose optimization techniques: automated exposure control; mA and/or kV adjustment per patient size (includes targeted exams where dose is matched to clinical indication); or iterative reconstruction. COMPARISON: CT HEAD/BRAIN WO CON 04/21/2023 12:40 PM FINDINGS: Brain: There is no acute intracranial hemorrhage, cerebral edema, or midline shift. Chronic microvascular ischemic changes are seen in the periventricular white matter. Age-related cerebral and cerebellar volume loss is present. Cerebral ventricles: No hydrocephalus. Paranasal sinuses: There is no acute sinusitis. Mastoid air cells: The mastoid air cells are clear. Orbital cavities: The included orbital structures are unremarkable. Bones/joints: No acute fracture. Soft tissues: Unremarkable. Vasculature: Atherosclerotic calcifications are seen involving the cavernous carotid arteries. IMPRESSION: 1. No acute intracranial abnormality. 2. Atrophy and chronic deep white matter ischemic changes.
[2023-05-08 08:53] LABS: Thyroid Stimulating Hormone 2.62 uIU/mL (0.465-4.68)
[2023-05-08 08:59] LABS: Coronavirus 19, PCR Not Detected (NotDetected); Influenza A, PCR Not Detected (NotDetected); Influenza B, PCR Not Detected (NotDetected)
[2023-05-08 09:03] LABS: Magnesium 0.9 mg/dl (1.6-2.3)
[2023-05-08 09:08] LABS: Bacteria,Urine 3+ /lpf; Squamous Epithelial Cell,Urine Occasional #/hpf (0-5); WBC,Urine TNTC #/hpf (0-3)
[2023-05-08] MEDS: KCl 20mEq/100ml 100 ML 50 MEQ IV ×3 (09:29→15:10)
[2023-05-08] MEDS: VANCOMYCIN/WATER FOR INJ (PEG) 1.75 GM/350 ML PIGGYBACK IV (09:29)
[2023-05-08] MEDS: MAGNESIUM SULFATE IN WATER 2 GM/50 ML PIGGYBACK IV (09:29)
[2023-05-08 09:36] LABS: Acetone, Serum (Rapid) None Detected (None Detect)
--- NOTE | 2023-05-08 10:21 | PC.NURSE ---
Called to give report at [phone]. Nurse unavailable at time, will call back
--- NOTE | 2023-05-08 11:04 | PC.NURSE ---
1100 bedside report given to dinesh canseco
[2023-05-08 11:47] LABS: POC Glucose,Bedside 67 (70-110)
[2023-05-08 11:55] LABS: Troponin I 0.06 ng/ml (0.00-0.034)
--- NOTE | 2023-05-08 11:59 | HMH.PHAINT1 ---
Pharmacy Intervention Comments: HOME MEDICATION LIST VERIFIED VIA HOME HEALTH LIST AND RECENT DISCHARGE LIST
[2023-05-08 12:19] LABS: POC Glucose,Bedside 111 (70-110)
--- NOTE | 2023-05-08 14:58 | P.HP_ITS ---
History of Present Illness *Admission Date: 05/08/23 *Reason for visit:: *History of present illness: Patient is a 77-year-old male with past medical history of diabetes mellitus hypothyroidism hyperlipidemia hypertension history of osteomyelitis who presents to the hospital due to confusion. Patient lives with his daughter. Patient does not remember why exactly he is in the hospital he mentions he his daughter brought him to the hospital. Patient otherwise denied chest pain shortness of breath nausea vomiting diarrhea constipation dysuria fevers and chills. Patient appears to be confused to time on further evaluation patient was found to be altered likely due to UTI. Reportedly patient has been having intermittent fevers at home [facility] Disclaimer: The information contained in this section may have been updated after the patient was seen, as this information can be updated by other users. Medical History GERD (gastroesophageal reflux disease) Gout Insomnia CKD (chronic kidney disease) Decreased mobility History of osteomyelitis Osteomyelitis Surgical History History of amputation of toe History of colonoscopy History of laparoscopic cholecystectomy Family History (Updated 05/08/23 @ 11:13 by Barbie Smith RN) Other No significant family history Social History (Updated 05/08/23 @ 11:14 by Barbie Smith RN) Smoking Status: Never smoker alcohol intake: never substance use type: denies use current occupational status: unemployed Travel in the last 8 weeks: None household members: family housing: house number of children: 1 caffeine: Yes Review of Systems Review of Systems Review of systems (narrative): as per HPI Meds Home Medications and Allergies Home Medications Medication Instructions Recorded Confirmed Type allopurinol 300 mg tablet 300 mg PO DAILY gout #90 tabs 08/03/22 05/08/23 Rx carbidopa 25 mg-levodopa 100 mg 1 tab PO QID Tremors #360 tabs 08/03/22 05/08/23 Rx tablet carvedilol 25 mg tablet 25 mg PO BID High blood pressure 08/03/22 05/08/23 Rx #180 tabs levothyroxine 25 mcg tablet 25 mcg PO DAILY hypothyroidism #90 08/03/22 05/08/23 Rx tabs insulin aspart U-100 100 unit/mL 40 unit (0.4 mL) SQ AC Diabetes 08/31/22 05/08/23 Rx (3 mL) subcutaneous pen (Novolog #50 mL FlexPen U-100 Insulin aspart) atorvastatin 40 mg tablet 40 mg PO HS Cholesterol 04/22/23 05/08/23 History losartan 100 mg tablet 100 mg PO DAILY High Blood Pressure 04/22/23 05/08/23 History paroxetine HCl 40 mg tablet 40 mg PO DAILY Mood 04/22/23 05/08/23 History quetiapine 100 mg tablet 100 mg PO HS Mood #90 tabs 05/03/23 05/08/23 Rx trazodone 50 mg tablet 50 mg PO HS Insomnia #90 tabs 05/03/23 05/08/23 Rx blood sugar diagnostic (Advanced #200 ea 05/07/23 05/08/23 Rx Glucose Meter Test Strips) blood-glucose meter (Advanced #1 ea 05/07/23 05/08/23 Rx Glucose Meter) lancets (Accu-Chek Softclix #200 ea 05/07/23 05/08/23 Rx Lancets) aspirin 81 mg chewable tablet 81 mg PO DAILY CIRCULATION 05/08/23 05/08/23 History gabapentin 400 mg capsule 400 mg PO BIDP PRN NEUROPATHY 05/08/23 05/08/23 History hydrocodone 5 mg-acetaminophen 325 1 tab PO BIDP PRN pain 05/08/23 05/08/23 History mg tablet insulin glargine 100 unit/mL (3 80 unit SQ HS Diabetes 05/08/23 05/08/23 History mL) subcutaneous pen (Lantus Solostar U-100 Insulin) omeprazole 20 mg capsule,delayed 20 mg PO DAILY GERD 05/08/23 05/08/23 History release oxybutynin chloride 5 mg 5 mg PO DAILY BLADDER 05/08/23 05/08/23 History tablet,extended release 24 hr tamsulosin 0.4 mg capsule 0.4 mg PO DAILY PROSTRATE 05/08/23 05/08/23 History New Prescriptions to Start Prescriptions: Allergies Allergy/AdvReac Type Severity Reaction Status Date / Time No Known Allergies Allergy Verified 03/06/23 14:00 Exam Data for Last 24 hours Vital signs and Labs for Last 24 Hours: Temp Pulse Resp BP Pulse Ox O2 Del Method 98.2 F 70 22 147/74 H 93 L Room Air 05/08/23 11:00 05/08/23 12:00 05/08/23 11:00 05/08/23 11:00 05/08/23 10:47 05/08/23 11:00 Laboratory Results - last 24 hr 05/08/23 07:56: WBC 10.7, RBC 3.74 L, Hgb 11.6 L, Hct 34.3 L, MCV 91.5, MCH 31.0, MCHC 33.8, RDW 15.2, Plt Count 202, MPV 7.8, Neut % (Auto) 83.1 H, Lymph % (Auto) 6.7 L, [place] % (Auto) 8.2, Eos % (Auto) 1.3, Baso % (Auto) 0.6, Neut # (Auto) 8.9 H, Lymph # (Auto) 0.7, [place] # (Auto) 0.9, Eos # (Auto) 0.1, Baso # (Auto) 0.1, ESR > 140 H, APTT 30.3, Sodium 138, Potassium 2.3 L*, Chloride 101, Carbon Dioxide 35 H, Anion Gap 4.3 L, BUN 14, Creatinine 1.50 H, Estimated Creat Clear 56, Estimated GFR 46 L, Est GFR ( Amer) 55 L, Glucose 126 H, Calcium 7.1 L, Magnesium 0.9 L 05/08/23 07:56: Magnesium 0.9 L, Total Bilirubin 0.7, AST 37, ALT 18, Alkaline Phosphatase 131 H, Total Creatine Kinase 69, Troponin I 0.04 H, NT-Pro-B Natriuret Pep 1360 H, Total Protein 6.5, Albumin 2.9 L, Globulin 3.6 H, Albumin/Globulin Ratio 0.8 L, Lipase 93, TSH 2.62, Thyroxine (T4) 7.6, Salicylates < 1.0 L, Acetone Level None detected 05/08/23 08:01: Urine Color Yellow, Urine Appearance Clear, Urine pH 6.5, Ur Specific [place] 1.020, Urine Protein 3+, Urine Glucose (UA) 2+, Urine Ketones Negative, Urine Blood 2+, Urine Nitrate Positive, Urine Bilirubin Negative, Urine Urobilinogen 0.2, Ur Leukocyte Esterase 1+ A, Urine RBC 3-5, Urine WBC Tntc, Ur Squamous Epith Cells Occasional, Urine Bacteria 3+ 04/02/24 08:06: VBG pH 7.50 H, VBG pCO2 35.1, VBG pO2 155.6 H, VBG HCO3 26.5, VBG Total CO2 27.6 H, VBG O2 Saturation 98.9 H, VBG Base Excess 3.3 H, VBG Lactic Acid 1.5 05/08/23 08:55: SARS-CoV-2 (PCR) Not detected, Influenza A Untype (PCR) Not detected, Influenza Type B (PCR) Not detected 05/08/23 11:27: Troponin I 0.06 H 05/08/23 11:40: POC Glucose 67 L 05/08/23 12:12: POC Glucose 111 H I & O for Last 24 hours: Intake & Output 05/05/23 05/06/23 05/07/23 05/08/23 23:59 23:59 23:59 23:59 Weight 92.76 kg Constitutional Constitutional: no acute distress *Routine HEENT Exam Head: Present normocephalic Eye: Present EOMI and PERRL ENT: Present mucous membranes moist *Routine Neck Exam Neck: Present supple; Absent lymphadenopathy *Routine Respiratory Exam Respiratory: Present CTA bilaterally *Routine Cardiovascular Exam Cardiovascular: Present RRR *Routine Abdominal Exam Abdominal: Present soft and normoactive bowel sounds; Absent tenderness *Routine Rectal Exam Rectal:: deferred *Routine Genitalia Exam Genitalia:: deferred *Routine Extremities Exam Extremities: Absent cyanosis, clubbing or edema *Routine Skin Exam Skin: Present warm; Absent rash *Routine Neurological Exam Neurological: Present alert Comments: he appears confused Assessment and Plan *Assessment and plan (1) Acute UTI: Status: Acute Category: Medical Code(s): N39.0 - Urinary tract infection, site not specified (2) HLD (hyperlipidemia): Status: Acute Category: Medical Code(s): E78.5 - Hyperlipidemia, unspecified (3) HTN (hypertension): Status: Acute Category: Medical Code(s): I10 - Essential (primary) hypertension (4) KJ (acute kidney injury): Status: Acute Category: Medical Code(s): N17.9 - Acute kidney failure, unspecified Plan Patient is a 77-year-old male with past medical history of diabetes mellitus hypothyroidism hyperlipidemia hypertension history of osteomyelitis who presents to the hospital due to confusion. Patient lives with his daughter. Patient does not remember why exactly he is in the hospital he mentions he his daughter brought him to the hospital. Patient otherwise denied chest pain shortness of breath nausea vomiting diarrhea constipation dysuria fevers and chills. Patient appears to be confused to time on further evaluation patient was found to be altered likely due to UTI. Reportedly patient has been having intermittent fevers at home Assessment and plan Acute metabolic encephalopathy likely secondary to urinary tract infection Urinary cath infection Right lower lung opacity concerning for pneumonia, cannot rule out aspiration pneumonia Continue on Unasyn for anaerobes, gram-positive., levofloxacin for gram-negative coverage Follow-up on urine culture Will consult PT/OT Monitor and replace electrolytes Hypokalemia - monitor and replace - likely due to low oral intake KJ - Gentle IV fluids - monitor Cr Diabetes mellitus Hypertension Hyperlipidemia Hypothyroidism Insulin sliding scale Resume home aspirin long-acting insulin, carbidopa levodopa, Coreg, levothyroxine, Seroquel, trazodone DVT prophylaxis-heparin
[2023-05-08 15:21] LABS: Troponin I 0.05 ng/ml (0.00-0.034)
[2023-05-08] MEDS: LEVOFLOXACIN/D5W 750 MG/150 ML 750 MG/150 ML PIGGYBACK 100 MG IV (16:18)
[2023-05-08] MEDS: ACETAMINOPHEN 325MG TAB 650 MG PO (16:26)
[2023-05-08 16:42] LABS: POC Glucose,Bedside 93 (70-110)
[2023-05-08] MEDS: CARBIDOPA/LEVODOPA 25/100MG TABLET 1 EACH PO ×2 (17:02→20:23)
[2023-05-08] MEDS: CARVEDILOL 25MG TABLET 25 MG PO (17:02)
[2023-05-08 18:09] LABS: Potassium 2.9 mmoL/L (3.5-5.1)
--- NOTE | 2023-05-08 18:11 | PC.NURSE ---
Patient new admit to floor this shift. Potassium replaced throughout shift, Patient more alert and oriented as shift went on. Patient had a fever of 103.5 and it got better with tylenol.
[2023-05-08] MEDS: TRAZODONE 50MG TABLET 50 MG PO (20:23)
[2023-05-08] MEDS: ATORVASTATIN 40MG TABLET 40 MG PO (20:23)
[2023-05-08] MEDS: QUETIAPINE 100MG TABLET 100 MG PO (20:23)
[2023-05-08] MEDS: PANTOPRAZOLE 40MG TABLET 40 MG PO (20:23)
[2023-05-08] MEDS: TAMSULOSIN 0.4MG CAPSULE 0.400000000000000022 MG PO (20:23)
[2023-05-08 20:33] LABS: POC Glucose,Bedside 115 (70-110)
[2023-05-09] VITALS (9 sets, daily range): BP systolic 121–164; BP diastolic 62–86; PULSE 60–72; RESP 17–20; TEMP 37.3–39.2; O2SAT 91–96; BMI 27.6
[2023-05-09] MEDS: ACETAMINOPHEN 325MG TAB 650 MG PO (00:09)
[2023-05-09] MEDS: AMPICILLIN/SULBACTAM 3 GM in 0.9 % SODIUM CHLORIDE 100 ML IV ×4 (02:02→21:05)
[2023-05-09 05:36] LABS: POC Glucose,Bedside 60 (70-110)
--- NOTE | 2023-05-09 05:47 | PC.NURSE ---
Addendum entered by Palmira Fuentes RN 05/09/23 06:46: Recheck FSBS is now 128. Original Note: Patient has rested well this shift. Patient has been A/O x3. Patient voids per male purewick. patient had fever x1 this shift, medicated per MAR with relief. Patient's FSBS this morning was 60, gave patient orange juice and FSBS went to 70. Gave patient another 8oz of Angelina juice and will recheck. Patient remains asymptomatic with low sugar.
[2023-05-09 06:02] LABS: POC Glucose,Bedside 70 (70-110)
[2023-05-09 06:30] LABS: Chloride 106 mmol/L (98-107); Sodium 139 mmol/L (136-145)
[2023-05-09 06:33] LABS: Anion Gap 7.7 mEq/L (5-15); Blood Urea Nitrogen 17 mg/dl (9-20); Calcium 6.8 mg/dl (8.4-10.2); Carbon Dioxide 28 mmol/L (22.0-30.0); Creatinine Clearance Estimated 55 mL/min (50-200); Estimated Glomerular Filt Rate 46 ml/min (>60); GFR (African American) 55 ML/MIN (>60); Glucose 87 mg/dl (74-100)
[2023-05-09 06:40] LABS: Basophils # 0.1 K/mm3 (0-0.2); Basophils % 1.1 % (0.1-2.0); Eosinophils # 0.1 K/mm3 (0.0-0.4); Eosinophils % 0.8 % (0.1-12.0); Hematocrit 36.9 % (42.0-52.0); Hemoglobin 11.9 g/dL (14.1-18.0); Lymphocytes # 1.1 K/mm3 (0.7-4.5); Lymphocytes % 11.3 % (10-50); Mean Corpuscular HGB Conc 32.2 g/dL (31.8-35.4); Mean Corpuscular Hemoglobin 30.2 pg (27.0-31.2); Mean Corpuscular Volume 93.5 fl (80-94); Mean Platelet Volume 7.9 fl (7.4-10.4); Monocytes # 0.8 K/mm3 (0.1-1.0); Neutrophils # 7.5 K/mm3 (1.8-7.8); Neutrophils % 78.8 % (37.0-80.0); Platelet Count 157 K/mm3 (142-424); Red Blood Count 3.95 M/mm3 (4.60-6.20); Red Cell Distribution Width 15.4 % (11.5-17.5); White Blood Count 9.5 K/mm3 (4.8-10.8)
[2023-05-09] MEDS: LEVOTHYROXINE 25MCG (0.025MG) TAB 25 MCG PO (06:43)
[2023-05-09 06:52] LABS: POC Glucose,Bedside 128 (70-110)
[2023-05-09 06:57] LABS: Potassium 2.7 mmoL/L (3.5-5.1)
--- NOTE | 2023-05-09 08:52 | SW/DCPLANNER ---
Addendum entered by [facility] 05/10/23 12:56: 05/12/23. Addendum entered by [facility] 05/10/23 12:56: Per Brent w/ [facility] services will resume Sunday Addendum entered by [facility] 05/10/23 10:39: Patient continues to refuse placement. The plan for this patient is to return home today and I will fax information/order to resume home health services to [facility]. Addendum entered by [facility] 05/09/23 14:36: I spoke w/ this patient today regarding plans once medically stable for discharge. PT/OT evaluated patient and recommended SNF level of care. Patient currently resides at home w/ his daughter. Patient expressed that he is not interested in placement and prefers to return home and resume home health services w/ [facility]. Patient was agreeable for me to call and discuss plans w/ his daughter. I spoke w/ daughter and she agreed that patient does need placement but noted that he would not be willing to go. Daughter stated that she would like to discuss this w/ patient this evening then follow up w/ me tomorrow morning. I will continue to follow up w/ patient, daughter and MD. Discharge date is unknown at this time. Original Note: This patient is currently established w/ [facility]. I will continue to follow up w/ tee and Brent crowley/ Yuki regarding discharge plans.
[2023-05-09] MEDS: PARoxetine 20MG TABLET 40 MG PO (09:11)
[2023-05-09] MEDS: ASPIRIN 81MG CHEWABLE TABLET 81 MG PO (09:11)
[2023-05-09] MEDS: POTASSIUM CHLORIDE 20MEQ TAB 40 MEQ PO ×2 (09:11→23:59)
[2023-05-09] MEDS: ALLOPURINOL 300MG TABLET 300 MG PO (09:11)
[2023-05-09] MEDS: IRBESARTAN 150MG TAB 150 MG PO (09:11)
[2023-05-09] MEDS: CARBIDOPA/LEVODOPA 25/100MG TABLET 1 EACH PO ×3 (09:11→21:05)
[2023-05-09] MEDS: OXYBUTYNIN 5MG TAB 5 MG PO (09:11)
[2023-05-09] MEDS: CARVEDILOL 25MG TABLET 25 MG PO ×2 (09:11→18:11)
[2023-05-09] MEDS: KCl 10mEq/100ml 100 ML 100 MEQ IV (11:00)
[2023-05-09 11:38] LABS: POC Glucose,Bedside 153 (70-110)
--- NOTE | 2023-05-09 13:30 | HMH.PTEV ---
Physical Therapy Evaluation Rehab PT IP Evaluation Start: 05/09/23 09:41 Freq: ONCE Status: Active Protocol: Document 05/09/23 13:24 RIVKA (Rec: 05/09/23 13:29 RIVKA [email or web address]) Subjective/History History History Per H&P: Patient is a 77-year-old male with past medical history of diabetes mellitus hypothyroidism hyperlipidemia hypertension history of osteomyelitis who presents to the hospital due to confusion. Patient lives with his daughter. Patient does not remember why exactly he is in the hospital he mentions he his daughter brought him to the hospital. Patient otherwise denied chest pain shortness of breath nausea vomiting diarrhea constipation dysuria fevers and chills. Patient appears to be confused to time on further evaluation patient was found to be altered likely due to UTI. Reportedly patient has been having intermittent fevers at home Subjective Subjective PLOF per pt report: IND with mobility using rollator and RW . 4 JESSICA home with no HRs. Lives with daughter in single- story home. Pt's daughter works FT during day. New diagnosis of cancer in past 12 No months? Rehab PT IP Eval Objective Appearance Patient Behavior Appropriate,Cooperative Patient Orientation Person Difficulty following instructions none Speech Pattern Clear Ambulation Patient Able to Ambulate Yes Ambulation Observation IP General Gait Pattern Observation Wide Based Gait Ambulation Distance (feet) 14 Ambulation Assistive Device Rolling Walker Ambulation Ability Minimal x 2 (25% assist) Balance Ability to Arise Able, uses arms to help Sitting Balance Steady, safe Standing Balance Unsteady Transfers Bed Transfer Ability Minimal x 1 (25% assist) Sit to Stand Bed Transfer Ability Moderate x 2 (50% assist) Rehab PT IP prob,goals,plan Problems Date of Evaluation: 05/09/23 PT IP Problems Bed Mobility,Transfers,Gait, Balance,Self care,Safety Rehab Potential Rehab Potential Good Equipment Needs Assistive Devices Rolling / Wheeled Walker Plan PT Intervention Plan Bed Mobility,Transfers,Gait, Balance,Safety,Therapeutic Exercise Other Intervention Plan 1-2 times PT Plan Frequency Daily Duration LOS Discharge Goals Bed Transfer Ability Supervision/Stand by Sit to Stand Chair Transfer Ability Minimal x 1 (25% assist) Ambulation Assistive Device Rolling Walker Ambulation Distance (feet) 25 Discharge Plan PT Discharge Plan Initial physical therapy evaluation performed. Patient presents below baseline at this time in functional mobility, transfers, gait, and strength. Pt would benefit from skilled PT while at [facility] to prevent further functional decline and maximize safety with mobility. Pt not safe to return home at this time d/t current level of functional mobility and being home alone during the day. PT recommending short-term rehabilitation stay upon d/c from [facility]. PT to assess mobility throughout stay. Eval Complexity Eval Charge Codes 43630 - Moderate Complexity PHYSICIAN CERTIFICATION: I certify the specified therapy services for Tomas Crocker are required, authorized, and reviewed every 30 days.
--- NOTE | 2023-05-09 13:31 | HMH.OTEV ---
OT Inpatient Evaluation Rehab OT IP Evaluation Start: 05/09/23 09:41 Freq: ONCE Status: Active Protocol: Document 05/09/23 13:25 ARSWHICK (Rec: 05/09/23 13:30 [facility] [id number]) Rehab OT IP Assessment Subjective History Pt oriented x 3 on arrival. Pt agreeable to engage in therapy evaluation. Pt admitted on 05/08/23 due to fever, AMS, and UTI. History and physical: Patient is a 77-year-old male with past medical history of diabetes mellitus hypothyroidism hyperlipidemia hypertension history of osteomyelitis who presents to the hospital due to confusion. Patient lives with his daughter. Patient does not remember why exactly he is in the hospital he mentions he his daughter brought him to the hospital. Patient otherwise denied chest pain shortness of breath nausea vomiting diarrhea constipation dysuria fevers and chills. Patient appears to be confused to time on further evaluation patient was found to be altered likely due to UTI. Reportedly patient has been having intermittent fevers at home Subjective I have been sore. Prior to being in the hospital , pt lived with his daugther. Pt claims normally he is independent with all ADLs such as dressing, bathing, and feeding. He is dependent upon daugther for completion of all IADLs. Pt does use a rolling walker during functional transfers. Pt lives in a single story home with 4 steps to enter. Objective Patient Orientation Person,Place,Birthday Right Upper Extremity Gross ROM WFL Left Upper Extremity Gross ROM WFL Bed Mobility bed mobility-scooting,bed mobility - supine/sit Assist Level Contact Guard/Hand Hold Transfer Training Sit/Stand Transfer Assist Level Minimal x 2 (25% assist) Upper Body Dressing Ability Maximum Assistance Rehab OT IP prob,goals,plan Problems Date of Evaluation: 05/09/23 OT IP Problems Bed Mobility,Transfers,Balance ,Self care,Safety Rehab Potential Rehab Potential Good Equipment Needs Assistive Devices Rolling / Wheeled Walker Plan OT intervention Plan Bed Mobility,Transfers,Balance ,Self care,Safety,Therapeutic Exercise OT Plan Frequency Daily Duration LOS Discharge Goals Bed Mobility Ability Standby Assistance Sit to Stand Chair Transfer Ability Contact Guard/Hand Hold, Minimal x 1 (25% assist) Chair Transfer Ability Contact Guard/Hand Hold, Minimal x 1 (25% assist) Chair Transfer Technique Sit to/from Ambulatory Chair Transfer Assistive Devices Rolling Walker Feeding Ability Assist with Tray Set Up Lower Body Dressing Ability Minimal Assistance Upper Body Dressing Ability Standby Assistance Bathing Ability Minimal Assistance Performing Toilet Hygiene Ability Contact Guard Overall Commode/Toilet Transfer Ability Standby Assistance,Contact Guard,Minimal Assistance Commode/Toilet Transfer Technique Sit to/from Ambulatory Commode/Toilet Transfer Assistive Grab Bars Devices Oral Care Assist Standby Assistance Decrease in Endurance Yes Discharge Plan OT Discharge Plan Pt will continue to be seen for OT services while at [facility]. At this point in time, pt would benefit most from short term rehab at [facility]. Pt is home alone during the day while his daugther works and he is currently requiring some assistance with transfers and ADLs. However, if patient demonstrates improvement and reaches PLOF while at [facility] he could potentially return home with OT HH evaluation. Eval Complexity Eval Charge Codes 63562 - Moderate Complexity PHYSICIAN CERTIFICATION: I certify the specified therapy services for Tomas Crocker are required, authorized, and reviewed every 30 days.
--- NOTE | 2023-05-09 15:51 | EXP.PN ---
Subjective *Date: 05/09/23 *Time: 15:51 Interval history: patient was seen and evaluated at the bedside. No reported acute events overnight, denies chest pain, shortness of breath, nausea, vomiting, abdominal pain. Exam Data for Last 24 hours Vital signs and Labs for Last 24 Hours: Temp Pulse Resp BP Pulse Ox O2 Del Method 99.8 F H 67 18 121/86 92 L Room Air 05/09/23 12:00 05/09/23 12:00 05/09/23 12:00 05/09/23 12:00 05/09/23 12:00 05/09/23 12:00 Laboratory Results - last 24 hr 05/08/23 16:30: POC Glucose 93 05/08/23 17:12: Potassium 2.9 L* D 05/08/23 20:23: POC Glucose 115 H 05/09/23 05:30: POC Glucose 60 L 05/09/23 05:51: POC Glucose 70 05/09/23 05:59: WBC 9.5, RBC 3.95 L, Hgb 11.9 L, Hct 36.9 L, MCV 93.5, MCH 30.2, MCHC 32.2, RDW 15.4, Plt Count 157, MPV 7.9, Neut % (Auto) 78.8, Lymph % (Auto) 11.3, [place] % (Auto) 8.0, Eos % (Auto) 0.8, Baso % (Auto) 1.1, Neut # (Auto) 7.5, Lymph # (Auto) 1.1, [place] # (Auto) 0.8, Eos # (Auto) 0.1, Baso # (Auto) 0.1, Sodium 139, Potassium 2.7 L*, Chloride 106, Carbon Dioxide 28, Anion Gap 7.7, BUN 17, Creatinine 1.50 H, Estimated Creat Clear 55, Estimated GFR 46 L, Est GFR ( Amer) 55 L, Glucose 87 D, Calcium 6.8 L 05/09/23 06:45: POC Glucose 128 H 05/09/23 11:31: POC Glucose 153 H I & O for Last 24 hours: Intake & Output 05/06/23 05/07/23 05/08/23 05/09/23 23:59 23:59 23:59 23:59 Intake Total 360 / 460 460 / 460 Output Total 1200 / 1200 1300 / 1300 Balance -840 / -740 -840 / -840 Weight 92.76 kg 92.76 kg Constitutional Constitutional: no acute distress *Routine HEENT Exam Head: Present normocephalic Eye: Present EOMI and PERRL ENT: Present mucous membranes moist *Routine Neck Exam Neck: Present supple; Absent lymphadenopathy *Routine Respiratory Exam Respiratory: Present CTA bilaterally *Routine Cardiovascular Exam Cardiovascular: Present RRR *Routine Abdominal Exam Abdominal: Present soft and normoactive bowel sounds; Absent tenderness *Routine Extremities Exam Extremities: Absent cyanosis, clubbing or edema *Routine Skin Exam Skin: Present warm; Absent rash *Routine Neurological Exam Neurological: Present alert and oriented X3 Assessment and Plan *Assessment and plan (1) Acute UTI: Status: Acute Category: Medical Code(s): N39.0 - Urinary tract infection, site not specified (2) HLD (hyperlipidemia): Status: Acute Category: Medical Code(s): E78.5 - Hyperlipidemia, unspecified (3) HTN (hypertension): Status: Acute Category: Medical Code(s): I10 - Essential (primary) hypertension (4) KJ (acute kidney injury): Status: Acute Category: Medical Code(s): N17.9 - Acute kidney failure, unspecified Plan Patient is a 77-year-old male with past medical history of diabetes mellitus hypothyroidism hyperlipidemia hypertension history of osteomyelitis who presents to the hospital due to confusion. Patient lives with his daughter. Patient does not remember why exactly he is in the hospital he mentions he his daughter brought him to the hospital. Patient otherwise denied chest pain shortness of breath nausea vomiting diarrhea constipation dysuria fevers and chills. Patient appears to be confused to time on further evaluation patient was found to be altered likely due to UTI. Reportedly patient has been having intermittent fevers at home Assessment and plan Acute metabolic encephalopathy likely secondary to urinary tract infection Urinary cath infection Right lower lung opacity concerning for pneumonia, cannot rule out aspiration pneumonia Continue on Unasyn for anaerobes, gram-positive., levofloxacin for gram-negative coverage Follow-up on urine culture Will consult PT/OT Monitor and replace electrolytes Hypokalemia - monitor and replace - likely due to low oral intake KJ - Gentle IV fluids - monitor Cr Diabetes mellitus Hypertension Hyperlipidemia Hypothyroidism Insulin sliding scale Resume home aspirin long-acting insulin, carbidopa levodopa, Coreg, levothyroxine, Seroquel, trazodone DVT prophylaxis-heparin continue IV abx today, f/u with PT/OT, likely DC tomorrow
[2023-05-09] MEDS: LEVOFLOXACIN/D5W 750 MG/150 ML 750 MG/150 ML PIGGYBACK 100 MG IV (16:02)
[2023-05-09 17:03] LABS: POC Glucose,Bedside 170 (70-110)
[2023-05-09] MEDS: humaLOG 100 UNITS/ML 3ML VIAL (SSI) SQ ×2 (17:04→21:09)
--- NOTE | 2023-05-09 19:07 | PC.NURSE ---
Patient a&ox3 and vss. Patient has been afebrile this shift and no c/o pain.
[2023-05-09] MEDS: TRAZODONE 50MG TABLET 50 MG PO (21:05)
[2023-05-09] MEDS: TAMSULOSIN 0.4MG CAPSULE 0.400000000000000022 MG PO (21:05)
[2023-05-09] MEDS: PANTOPRAZOLE 40MG TABLET 40 MG PO (21:05)
[2023-05-09] MEDS: ATORVASTATIN 40MG TABLET 40 MG PO (21:05)
[2023-05-09] MEDS: QUETIAPINE 100MG TABLET 100 MG PO (21:05)
[2023-05-09] MEDS: INSULIN GLARGINE 100 UNITS/ML 3ML FLEXPEN 10 UNIT SQ (21:05)
[2023-05-09 22:46] LABS: POC Glucose,Bedside 167 (70-110)
[2023-05-10] VITALS: BP 155/78; PULSE 70; PULSE 77; RESP 17; TEMP 37.3; O2SAT 95
[2023-05-10] MEDS: AMPICILLIN/SULBACTAM 3 GM in 0.9 % SODIUM CHLORIDE 100 ML IV ×2 (03:35→08:44)
[2023-05-10 04:00] VITALS: BP 165/77; PULSE 70; PULSE 71; RESP 17; TEMP 37.7; O2SAT 98; BMI 28.2
[2023-05-10 06:18] LABS: Chloride 107 mmol/L (98-107)
[2023-05-10 06:19] LABS: Potassium 3.1 mmoL/L (3.5-5.1); Sodium 141 mmol/L (136-145)
[2023-05-10 06:22] LABS: Anion Gap 4.1 mEq/L (5-15); Blood Urea Nitrogen 17 mg/dl (9-20); Calcium 6.7 mg/dl (8.4-10.2); Carbon Dioxide 33 mmol/L (22.0-30.0); Creatinine Clearance Estimated 53 mL/min (50-200); Estimated Glomerular Filt Rate 42 ml/min (>60); GFR (African American) 51 ML/MIN (>60); Glucose 104 mg/dl (74-100)
[2023-05-10 06:29] LABS: Basophils % 0.6 % (0.1-2.0); Eosinophils # 0.2 K/mm3 (0.0-0.4); Eosinophils % 2.7 % (0.1-12.0); Hematocrit 30.1 % (42.0-52.0); Lymphocytes # 1.4 K/mm3 (0.7-4.5); Lymphocytes % 18.1 % (10-50); Mean Corpuscular HGB Conc 32.7 g/dL (31.8-35.4); Mean Corpuscular Hemoglobin 29.9 pg (27.0-31.2); Mean Corpuscular Volume 91.6 fl (80-94); Mean Platelet Volume 8.1 fl (7.4-10.4); Monocytes # 0.6 K/mm3 (0.1-1.0); Monocytes % 8.2 % (1.7-9.3); Neutrophils # 5.4 K/mm3 (1.8-7.8); Neutrophils % 70.5 % (37.0-80.0); Platelet Count 177 K/mm3 (142-424); Red Blood Count 3.28 M/mm3 (4.60-6.20); Red Cell Distribution Width 15.4 % (11.5-17.5); White Blood Count 7.6 K/mm3 (4.8-10.8)
[2023-05-10 06:44] LABS: Hemoglobin 9.8 g/dL (14.1-18.0)
[2023-05-10] MEDS: CARVEDILOL 25MG TABLET 25 MG PO (06:58)
[2023-05-10] MEDS: LEVOTHYROXINE 25MCG (0.025MG) TAB 25 MCG PO (06:58)
[2023-05-10 07:09] LABS: POC Glucose,Bedside 92 (70-110)
[2023-05-10 08:00] VITALS: BP 161/69; PULSE 60; PULSE 74; RESP 17; TEMP 37.4; O2SAT 94
[2023-05-10] MEDS: ALLOPURINOL 300MG TABLET 300 MG PO (08:44)
[2023-05-10] MEDS: ASPIRIN 81MG CHEWABLE TABLET 81 MG PO (08:44)
[2023-05-10] MEDS: OXYBUTYNIN 5MG TAB 5 MG PO (08:44)
[2023-05-10] MEDS: CARBIDOPA/LEVODOPA 25/100MG TABLET 1 EACH PO (08:44)
[2023-05-10] MEDS: PARoxetine 20MG TABLET 40 MG PO (08:45)
[2023-05-10 10:32] LABS: POC Glucose,Bedside 202 (70-110)
[2023-05-10] MEDS: humaLOG 100 UNITS/ML 3ML VIAL (SSI) SQ (10:33)
--- NOTE | 2023-05-10 10:36 | PC.NURSE ---
iv's removed times 2.
--- NOTE | 2023-05-10 10:44 | HMH.PHAINT1 ---
Pharmacy Intervention Comments: DISCHARGE MEDICATION COUNSELING WAS PROVIDED TO PATIENT AND HAD NO FURTHER QUESTIONS.
[2023-05-10 11:51] LABS: HIV Screen 4th Generation wRfx Non Reactive; Hepatitis B Surface Antigen Negative; Hepatitis C Antibody Non Reactive
[2023-05-10 11:52] LABS: Hepatitis B Surf Ab Quant <3.1
--- NOTE | 2023-05-10 11:58 | PC.NURSE ---
assessments done with myself and student.
--- NOTE | 2023-05-11 15:35 | CARE MANAGER ---
Called and spoke with patient regarding recent discharge. Patient stated that he was not aware of new medication and plans to have citrus picker today. He was aware of scheduled f/u appt. No concerns voiced at time of call.
--- NOTE | 2023-05-12 16:52 | PC.NURSE ---
Updated blood culture result from lab [facility] on day 4 prelim results for 1 aerobic bottle having gram + rods. forwarded to hospitalist worklist per protocol.
--- NOTE | 2023-05-16 03:50 | PC.NURSE ---
final culture result for urine: achromobacter species. FWD to hospitalist per protocol.
--- NOTE | 2023-05-22 10:58 | P.DS_ITS ---
General Admission date:: 05/08/23 Discharge date: 05/10/23 HPI HPI HPI: Patient is a 77-year-old male with past medical history of diabetes mellitus hypothyroidism hyperlipidemia hypertension history of osteomyelitis who presents to the hospital due to confusion. Patient lives with his daughter. Patient does not remember why exactly he is in the hospital he mentions he his daughter brought him to the hospital. Patient otherwise denied chest pain shortness of breath nausea vomiting diarrhea constipation dysuria fevers and chills. Patient appears to be confused to time on further evaluation patient was found to be altered likely due to UTI. Reportedly patient has been having intermittent fevers at home Hospital Course Hospital Course Hospital Course: Patient is a 77-year-old male with past medical history of diabetes mellitus hypothyroidism hyperlipidemia hypertension history of osteomyelitis who presents to the hospital due to confusion. Patient lives with his daughter. Patient does not remember why exactly he is in the hospital he mentions he his daughter brought him to the hospital. Patient otherwise denied chest pain shortness of breath nausea vomiting diarrhea constipation dysuria fevers and chills. Patient appears to be confused to time on further evaluation patient was found to be altered likely due to UTI. Reportedly patient has been having intermittent fevers at home Assessment and plan Acute metabolic encephalopathy likely secondary to urinary tract infection - improved Urinary tract infection Right lower lung opacity concerning for pneumonia, cannot rule out aspiration pneumonia Continue on amox - clav for anaerobes, gram-positive., levofloxacin for gram-negative coverage at discharge Hypokalemia - resolved KJ - improved Diabetes mellitus Hypertension Hyperlipidemia Hypothyroidism Resume home aspirin long-acting insulin, carbidopa levodopa, Coreg, lev othyroxine, Seroquel, trazodone Exam Data for Last 24 hours Vital signs and Labs for Last 24 Hours: Temp Pulse Resp BP Pulse Ox O2 Del Method 99.4 F 74 17 161/69 H 94 L Room Air 05/10/23 08:00 05/10/23 08:00 05/10/23 08:00 05/10/23 08:00 05/10/23 08:00 05/10/23 09:57 Constitutional Constitutional: no acute distress *Routine HEENT Exam Head: Present normocephalic Eye: Present EOMI and PERRL ENT: Present mucous membranes moist *Routine Neck Exam Neck: Present supple; Absent lymphadenopathy *Routine Respiratory Exam Respiratory: Present CTA bilaterally *Routine Cardiovascular Exam Cardiovascular: Present RRR *Routine Abdominal Exam Abdominal: Present soft and normoactive bowel sounds; Absent tenderness *Routine Extremities Exam Extremities: Absent cyanosis, clubbing or edema *Routine Skin Exam Skin: Present warm; Absent rash *Routine Neurological Exam Neurological: Present alert and oriented X3 DS: Diagnosis Discharge Diagnosis (1) Acute UTI: Status: Acute Code(s): N39.0 - Urinary tract infection, site not specified (2) HLD (hyperlipidemia): Status: Acute Code(s): E78.5 - Hyperlipidemia, unspecified (3) HTN (hypertension): Status: Acute Code(s): I10 - Essential (primary) hypertension (4) KJ (acute kidney injury): Status: Acute Code(s): N17.9 - Acute kidney failure, unspecified Meds Home Medications and Allergies Home Medications Medication Instructions Recorded Confirmed Type allopurinol 300 mg tablet 300 mg PO DAILY gout #90 tabs 08/03/22 05/08/23 Rx carbidopa 25 mg-levodopa 100 mg 1 tab PO QID Tremors #360 tabs 08/03/22 05/08/23 Rx tablet carvedilol 25 mg tablet 25 mg PO BID High blood pressure 08/03/22 05/08/23 Rx #180 tabs levothyroxine 25 mcg tablet 25 mcg PO DAILY hypothyroidism #90 08/03/22 05/08/23 Rx tabs insulin aspart U-100 100 unit/mL 40 unit (0.4 mL) SQ AC Diabetes 08/31/22 05/08/23 Rx (3 mL) subcutaneous pen (Novolog #50 mL FlexPen U-100 Insulin aspart) atorvastatin 40 mg tablet 40 mg PO HS Cholesterol 04/22/23 05/08/23 History losartan 100 mg tablet 100 mg PO DAILY High Blood Pressure 04/22/23 05/08/23 History paroxetine HCl 40 mg tablet 40 mg PO DAILY Mood 04/22/23 05/08/23 History quetiapine 100 mg tablet 100 mg PO HS Mood #90 tabs 05/03/23 05/08/23 Rx trazodone 50 mg tablet 50 mg PO HS Insomnia #90 tabs 05/03/23 05/08/23 Rx blood sugar diagnostic (Advanced #200 ea 05/07/23 05/08/23 Rx Glucose Meter Test Strips) blood-glucose meter (Advanced #1 ea 05/07/23 05/08/23 Rx Glucose Meter) lancets (Accu-Chek Softclix #200 ea 05/07/23 05/08/23 Rx Lancets) aspirin 81 mg chewable tablet 81 mg PO DAILY CIRCULATION 05/08/23 05/08/23 History gabapentin 400 mg capsule 400 mg PO BIDP PRN NEUROPATHY 05/08/23 05/08/23 History hydrocodone 5 mg-acetaminophen 325 1 tab PO BIDP PRN pain 05/08/23 05/08/23 History mg tablet insulin glargine 100 unit/mL (3 80 unit SQ HS Diabetes 05/08/23 05/08/23 History mL) subcutaneous pen (Lantus Solostar U-100 Insulin) omeprazole 20 mg capsule,delayed 20 mg PO DAILY GERD 05/08/23 05/08/23 History release oxybutynin chloride 5 mg 5 mg PO DAILY BLADDER 05/08/23 05/08/23 History tablet,extended release 24 hr tamsulosin 0.4 mg capsule 0.4 mg PO DAILY PROSTRATE 05/08/23 05/08/23 History amoxicillin 875 mg-potassium 1 tab PO Q12H 5 days #10 tabs 05/10/23 Rx clavulanate 125 mg tablet levofloxacin 750 mg tablet 750 mg PO DAILY 7 days #7 tabs 05/16/23 Rx New Prescriptions to Start Prescriptions: amoxicillin-pot clavulanate Kishan Yarbrough levoFrederick Doe Allergies Allergy/AdvReac Type Severity Reaction Status Date / Time No Known Allergies Allergy Verified 03/06/23 14:00 Discharge Plan Disposition Patient Disposition: Home Health Service Condition: Good Discharge Order Discharge Orders: Discharge Order (Routine); Ordered 05/10/23 Ordered By: Kishan Yarbrough Follow up Plan Follow up with: Chantel Ruggiero PA [[employer]ician [employer]] - 05/17/23 1:00 pm Prescriptions/Medication Reconciliation: New amoxicillin-pot clavulanate 875-125 mg tablet 1 tab PO Q12H 5 Days Qty: 10 0RF levofloxacin 750 mg tablet 750 mg PO DAILY 7 Days Qty: 7 0RF Continued levothyroxine 25 mcg tablet 25 mcg PO DAILY Qty: 90 4RF allopurinol 300 mg tablet 300 mg PO DAILY Qty: 90 3RF carbidopa-levodopa 25-100 mg tablet 1 tab PO QID Qty: 360 3RF carvedilol 25 mg tablet 25 mg PO BID Qty: 180 3RF insulin aspart U-100 [Novolog FlexPen U-100 Insulin] 100 unit/mL (3 mL) insulin pen 40 unit SQ AC Qty: 50 3RF Rx Instructions: TID with meals quetiapine 100 mg tablet 100 mg PO HS Qty: 90 0RF trazodone 50 mg tablet 50 mg PO HS Qty: 90 0RF (DME) blood-glucose meter [Advanced Glucose Meter] Misc See Rx Instructions .ROUTE .MEDSUPPLY Qty: 1 0RF Rx Instructions: As directed (DME) Advanced Gluc Meter Test Strip Strip See Rx Instructions .ROUTE .MEDSUPPLY Qty: 200 1RF Rx Instructions: TEST GLUCOSE TID (DME) lancets [Accu-Chek Softclix Lancets] Misc See Rx Instructions .Route Qty: 200 0RF Rx Instructions: TEST GLUCOSE TID atorvastatin 40 mg tablet 40 mg PO HS paroxetine HCl 40 mg tablet 40 mg PO DAILY losartan 100 mg tablet 100 mg PO DAILY omeprazole 20 mg capsule,delayed release(DR/EC) 20 mg PO DAILY hydrocodone-acetaminophen 5-325 mg tablet 1 tab PO BIDP PRN (Reason: pain) gabapentin 400 mg capsule 400 mg PO BIDP PRN (Reason: NEUROPATHY) tamsulosin 0.4 mg capsule 0.4 mg PO DAILY oxybutynin chloride 5 mg tablet extended release 24hr 5 mg PO DAILY aspirin 81 mg tablet,chewable 81 mg PO DAILY insulin glargine [Lantus Solostar U-100 Insulin] 100 unit/mL (3 mL) insulin pen 80 unit SQ HS Problem Reconciliation Problems Reviewed?: Yes Patient Discharge Instructions ACTIVITY: Ambulate as tolerated DIET: continue same diet Patient Instructions: DI for Urinary Tract Infection (UTI), DI for Altered Men kristi Status Providers Primary Care Provider: Provider,Referral Admit Provider: Kishan Yarbrough Attending Provider: Kishan Yarbrough
== END 2023-05-10 12:13 | disposition home health service (06) | DRG 682 ==
LOC: ER 08:35 → 2ND 10:22
PROVIDERS: Nurse Practitioner Family; Admitting Provider Internal Medicine; Emergency Provider Emergency Medicine; Visit Provider Internal Medicine
DX: N17.9 Acute kidney failure, unspecified (principal); G93.41 Metabolic encephalopathy; J18.9 Pneumonia, unspecified organism; N39.0 Urinary tract infection, site not specified; E78.5 Hyperlipidemia, unspecified; I12.9 Hypertensive chronic kidney disease with stage 1 through stage 4 chronic kidney disease, or unspecified chronic kidney disease; N18.9 Chronic kidney disease, unspecified; G20.A1 Parkinson's disease without dyskinesia, without mention of fluctuations; E03.9 Hypothyroidism, unspecified; Z79.4 Long term (current) use of insulin; M10.9 Gout, unspecified; E87.6 Hypokalemia; K21.9 Gastro-esophageal reflux disease without esophagitis; G47.00 Insomnia, unspecified; E11.9 Type 2 diabetes mellitus without complications
CPT/HCPCS: 36415; 70450; 71045; 80048; 80053; 80329; 81001; 82009; 82550; 82803; 82962; 83690; 83735; 83880; 84132; 84436; 84443; 84484; 85025; 85651; 85730; 86703; 86706; 87040; 87086; 87340; 87380; 87636; 93005; 97162; 97166; 97530; 99285; G0432; J0131; J1956; J3475

== ENCOUNTER 2023-05-29 11:41 | Inpatient (IN) | payer MEDICARE, OTHER, SELFPAY ==
[2023-05-29] VITALS (12 sets, daily range): BP systolic 133–199; BP diastolic 54–93; PULSE 61–75; RESP 16–20; TEMP 36.7–37.4; O2SAT 96–98; BMI 27.6; BMI 25.8
--- OUTSIDE RECORDS SUMMARY | 2023-05-29 11:54 | XMS_ITS | Clinical Summary ---
Author Name Unknown Address [address] [place] [address] Phone Organization [facility] Address [address] [place] [address] Phone Care Team Providers Care Blue Line Operator Name Role Phone Unavailable Unavailable Conditions or Problems No information available. Medications No information available. Medications Administered No information available. Allergies, Adverse Reactions, Alerts No information available. Results No information available. Plan of Care No information available. Procedures No information available. Vital Signs No information available. Immunizations No information available. Advance Directives No information available.
--- OUTSIDE RECORDS SUMMARY | 2023-05-29 11:54 | XMS_ITS | Continuity of Care Document ---
Author Name Unknown Organization [facility] Address [address] [place] [address] Phone Care Team Providers Care Ironer Name Role Phone Erasmo Lizama MD Unavailable Unavailable Allergies, Adverse Reactions, Alerts Substance Reaction Status Criticality No Known Allergies Active No Inform ation Medications Medication Instructions Dosage Effective Dates (start - stop) Status Comments Detrol LA 4 mg capsule,extended release take 1 capsule by oral route every day 4 MG - Active doxazosin 4 mg tablet take 1 tablet by oral route every day 4 MG - Active Novolog Flexpen 100 unit/mL subcutaneous inject by subcutaneous route as per insulin sliding scale protocol - Active omeprazole 20 mg capsule,delayed release take 1 capsule by oral route every day 20 MG - Active Prevalite 4 gram powder for susp in a packet take 1 packet by oral route every day dissolved in 2 to 6 ounces of water or noncarbonated beverage before meals 4 G - Active carisoprodol 350 mg tablet take 1 tablet by oral route every day and at bedtime 350 MG - Active zolpidem 10 mg tablet take 1 tablet by oral route every day at bedtime 10 MG - Active tramadol 50 mg tablet take 1 tablet by oral route every 6 hours as needed 50 MG - Active lamotrigine 100 mg tablet take 3 Tablet by oral route every bedtime 300 MG - Active testosterone cypionate 200 mg/mL intramuscular oil inject 0.25 milliliter by intramuscular route every 4 weeks 50 MG - Active ZOSTAVAX (PF) 19,400 unit subcutaneous suspension - Active lidocaine 5 % (700 mg/patch) adhesive patch apply 1 patch by transdermal route every day 1 patch - Active clindamycin 300 mg capsule take 1 capsule by oral route 3 times every day 300 MG - Active acetaminophen 300 mg-codeine 30 mg tablet take 1 tablet by oral route every 6 hours as needed 1.00 tablet - Active hydrocodone 7.5 mg-acetaminophen 325 mg tablet take 1 tablet by oral route every 6 hours as needed for pain 1.00 tablet - Active Naprosyn 375 mg tablet take 1 tablet by oral route 2 times every day with food - Active Aspirin Low-Strength 81 mg chewable tablet chew 1 tablet by oral route every day - Active clotrimazole-betamet hasone 1 %-0.05 % topical cream apply by topical route 2 times every day for 2 weeks to the affected and surrounding areas of skin in the morning and evening 0.00 - Active azithromycin 250 mg tablet take 2 tablet by oral route every day for 1 day then 1 tablet (250 mg) by oral route once daily for 4 days 500 MG - Active gabapentin 300 mg capsule take 1 capsule by oral route 4 times every day 300 MG - Active Lantus Solostar 100 unit/mL (3 mL) subcutaneous insulin pen inject by subcutaneous route as per insulin protocol 0.00 - Active atenolol 50 mg tablet take 1 tablet by oral route every day 50 MG - Active metformin 1,000 mg tablet take 1 tablet by oral route 2 times every day 1000 MG - Active Cymbalta 60 mg capsule,delayed release take 1 capsule by oral route every day 60 MG - Active lisinopril 40 mg tablet take 1 Tablet by oral route every day 40 MG - Active allopurinol 100 mg tablet take 1 tablet by oral route 2 times every day 100 MG - Active LOVASTATIN (unknown strength) take 1 tablet by oral route every day Not Available - Active FELODIPINE ER (unknown strength) take 1 tablet by oral route every day Not Available - Active Procedures Procedure Date REFRACTION EYE EXAM & TREATMENT EYE EXAM & TREATMENT REFRACTION EYE EXAM, NEW PATIENT REFRACTION Advance Directives Directive Yes / No Effective Date File Name No Information Encounters Encounter Description Practice Location Reason(s) For Visit Diagnoses Date Provider Providers Copied on Encounter [facility] , [address], [place], [address], [place] tel:[phone] [facility] No Information 4 Alda Zimmerman. [address] [place] [address], [address]. tel: [phone] [facility] , [address] [place] [address], [facility], tel:[phone] [facility] diabetes (chief complaint) Cataract (chief complaint) Diabetes with ophthalmic manifestations, type II or unspecified type, uncontrolledMild nonproliferative diabetic retinopathySenile nuclear sclerosisVitreous degenerationMacul ar puckering of retina 4 Alda Zimmerman. [address] [place] [address], [address]. tel: [phone] [facility] , [address] [place] [address], [facility], tel:[phone] [facility] Diabetes Mellitus, Adult Onset, UncontrolledSenil e nuclear sclerosisVitreous degeneration 3 Alda Zimmerman. [address] [place] [address], [address]. tel: [phone] [facility] , [address] [place] [address], [facility], [place] tel:[phone] [facility] No Information 1 Alda Zimmerman. [address] [place] [address], [address]. tel: [phone] Referring Provider: MELLISA Joe, [address] [place] [address] [address], [place], [address]. tel:[phone] Family History Family Member Type Diagnosis Age At Onset No Information Payers Payer name Insurance type Covered democrat ID Authoriza tion(s) No Information Social History Type Description Quantity Date Captured Comments Sex Male Smoking Status No Information Chief Complaint And Reason For Visit No Information Reason For Referral Reason For Referral No Information History Of Present Illness Encounter Date Complaint History Of Prese nt Illness diabetes Patient presents for a diabetes evaluation in the right and left eye. Blood sugar uncontrolled per patient. Blood sugar average 220, was 178 this a.m. per patient. Cataract Patient presents for evaluation of cataracts in the right and left eye. Complains of glare with night driving. Having to use glasses more to read. 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 No treatment necessary at this time. Patient was instructed to monitor vision for sudden changes and to call if visual changes noted. Discussed ocular and systemic benefits of blood sugar control. Recommnended patient follow-up with [facility] for further evaluation of NPDR OU and ERM OD. Related to Mild nonproliferative diabetic retinopathy - Return in 1 year w ivett Lizama M.D. for Diabetic Eval Related to Diabetes with ophthalmic manifestations, type II or unspecified type, uncontrolled - Discussed with daniela cruz; will continue to monitor. Related to Macular puckering of retina - There is no eviden ce of retinal pathology. All signs and risks of retinal detachment and tears were discussed in detail. Patient instructed to call the office immediately if any new symptoms noted. Related to Vitreous degeneration - Cataracts - No juli atment currently recommended. The patient will monitor vision changes and contact us with any decrease in vision. Patient was given a prescription for new glasses today. Related to Senile nuclear sclerosis Vitreous Detachment OD - There is no evidence of retinal pathology. Related to Vitreous Detachment Cataract, Nuclear Sc lerosis OU - No treatment currently recommended. The patient will monitor vision changes and contact us with any decrease in vision. Related to Cataract, Nuclear Sclerosis Diabetes, adult onse t, uncontrolled - Diabetes type II: no background retinopathy, no signs of neovascularization noted. Discussed ocular and systemic benefits of blood sugar control. Educational materials provided: or verbally educated Related to Diabetes, adult onset, uncontrolled - Return in 1 year w ivett Lizama M.D. for Diabetic Eval. Related to Diabetes, adult onset, uncontrolled Assessments Type Assessment Date No Information Patient Care Teams Name Effective Dates (start - stop) Status Members No Information
--- NOTE | 2023-05-29 12:03 | ED_ITS ---
Discharge Plan Disposition Patient Disposition: Admitted Clinical Impressions Clinical Impression: UTI (urinary tract infection) Discharge ED Provider: Flash Guthrie Adult HPI General Chief complaint: Weakness Stated complaint: weakness Time Seen by Provider: 05/29/23 12:02 Mode of Arrival: EMS Source of Information: Patient and EMS Limitations: No Limitations Description of Symptoms (Recalled from ER Triage Doc. by RN): pt to ed c/o generalized weakness. pt states he has had bilateral leg weakness that started when he woke up this morning. pt states his home health nurse advised him to been seen in the ED. pt denies pain. History of Present Illness HPI narrative: This patient presents for evaluation of generalized weakness, hyperglycemia. Patient during previous encounters, including recent encounter, has been reportedly altered and having difficulty providing history but is alert and oriented at this time. He reports several days of hypoglycemia, he reports his blood sugar typically is in the 200s, however has been 300s to 400s over the past 3 to 4 days. He presents today due to what he initially describes as bilateral lower extremity weakness, difficulty ambulating, in the absence of pain. He was having some difficulty yesterday but this worsened today. Symptoms were gradual in onset. He reports no syncope or presyncope or chest pain or headache or saddle anesthesia. He does report some dysuria. No nausea or vomiting. He has completed course of antibiotics for recent UTI, and associated KJ. He reports his urine output has been decreased. He denies any mechanical difficulty voiding Please note that above description of symptoms, in this electronic medical record under categorization of recalled from ER triage doctor by RN are reflective of an initial nursing assessment, however, is not reflective of my full history and physical exam that was personally taken and clarified. Consequentially, this preceding description of symptoms, which may include the patient's categorized chief complaint in the EMR, do not reflect my personal clinical impression, and the ultimate description of history of present illness and patient stated complaints should be deferred to this section of the note. Unless stated otherwise or congruent with this section of the note, additional signs, symptoms, or incongruence should be interpreted as inaccurate with my clinical impression. Related Data Home Medications Medication Instructions Recorded Confirmed atorvastatin 40 mg tablet 40 mg PO HS 04/22/23 05/29/23 losartan 100 mg tablet 100 mg PO DAILY 04/22/23 05/29/23 paroxetine HCl 40 mg tablet 40 mg PO DAILY 04/22/23 05/29/23 aspirin 81 mg chewable tablet 81 mg PO DAILY 05/08/23 05/29/23 gabapentin 400 mg capsule 400 mg PO BIDP PRN NEUROPATHY 05/08/23 05/29/23 hydrocodone 5 mg-acetaminophen 325 1 tab PO BIDP PRN pain 05/08/23 05/29/23 mg tablet insulin glargine 100 unit/mL (3 80 unit SQ HS 05/08/23 05/29/23 mL) subcutaneous pen (Lantus Solostar U-100 Insulin) omeprazole 20 mg capsule,delayed 20 mg PO DAILY 05/08/23 05/29/23 release oxybutynin chloride 5 mg 5 mg PO DAILY 05/08/23 05/29/23 tablet,extended release 24 hr tamsulosin 0.4 mg capsule 0.4 mg PO DAILY 05/08/23 05/29/23 allopurinol 300 mg tablet 300 mg PO DAILY 05/29/23 05/29/23 carbidopa 25 mg-levodopa 100 mg 1 tab PO QID 05/29/23 05/29/23 tablet carvedilol 25 mg tablet 25 mg PO BID 05/29/23 05/29/23 insulin aspart U-100 100 unit/mL 40 unit SQ AC 05/29/23 05/29/23 (3 mL) subcutaneous pen (Novolog FlexPen U-100 Insulin aspart) levothyroxine 25 mcg tablet 25 mcg PO DAILY 05/29/23 05/29/23 quetiapine 100 mg tablet 100 mg PO HS 05/29/23 05/29/23 trazodone 50 mg tablet 50 mg PO HS 05/29/23 05/29/23 Allergies Allergy/AdvReac Type Severity Reaction Status Date / Time No Known Allergies Allergy Verified 03/06/23 14:00 [facility] Disclaimer: The information contained in this section may have been updated after the patient was seen, as this information can be updated by other users. Medical History (Updated 05/29/23 @ 15:47 by Ludy Khalil RN) GERD (gastroesophageal reflux disease) Gout Insomnia CKD (chronic kidney disease) Decreased mobility History of osteomyelitis Osteomyelitis Surgical History History of amputation of toe History of colonoscopy History of laparoscopic cholecystectomy Family History Other No significant family history Social History (Updated 05/29/23 @ 15:23 by Barbie Smith RN) Smoking Status: Never smoker alcohol intake: never substance use type: denies use current occupational status: unemployed Travel in the last 8 weeks: None household members: family housing: house number of children: 1 caffeine: Yes ROS Obtained: Yes other As per HPI Physical Exam General General appearance: alert and in no apparent distress Head Head exam: atraumatic and normocephalic Eye Eye exam: Present normal appearance Neck Neck exam: Present normal inspection Chest Chest inspection: Present normal inspection and symmetric chest wall rise Respiratory Respiratory exam: Present normal lung sounds bilaterally; Absent respiratory distress Cardiovascular Cardiovascular exam: Present regular rate and normal rhythm Abdominal Exam Abdominal exam: Present soft Neurological Exam Neurological exam: Present alert and oriented X3 Psychiatric Psychiatric exam: Present normal affect and normal mood Skin Skin exam: Present warm and dry Medical Decision Making Medical Records Medical records reviewed: Yes I reviewed the patient's medical records. Simone Inquiry Pt receiving controlled substance: No Vital Signs: 05/29/23 11:44 05/29/23 12:00 05/29/23 12:30 Temperature 99.4 F Temperature Source Oral Pulse Rate 70 75 Pulse Rate [Left Radial] 70 Respiratory Rate 20 Blood Pressure 154/66 H 162/78 H Blood Pressure [Right Arm] 199/84 H Blood Pressure Mean 100 Blood Pressure Mean [Right Arm] 122 Blood Pressure Source Blood Pressure Position 02 Sat by Pulse Oximetry 97 96 97 Oxygen Delivery Method Room Air 05/29/23 13:00 05/29/23 13:30 05/29/23 14:01 Temperature Temperature Source Pulse Rate 69 66 65 Pulse Rate [Left Radial] Respiratory Rate Blood Pressure 141/68 H 133/54 L 153/93 H Blood Pressure [Right Arm] Blood Pressure Mean Blood Pressure Mean [Right Arm] Blood Pressure Source Blood Pressure Position 02 Sat by Pulse Oximetry 96 96 97 Oxygen Delivery Method Room Air 05/29/23 14:31 05/29/23 15:00 05/29/23 15:30 Temperature Temperature Source Pulse Rate 63 61 68 Pulse Rate [Left Radial] Respiratory Rate Blood Pressure 152/82 H 160/79 H 162/74 H Blood Pressure [Right Arm] Blood Pressure Mean Blood Pressure Mean [Right Arm] Blood Pressure Source Blood Pressure Position 02 Sat by Pulse Oximetry 97 97 97 Oxygen Delivery Method Room Air Room Air 05/29/23 15:46 Temperature 98.1 F Temperature Source Oral Pulse Rate 68 Pulse Rate [Left Radial] Respiratory Rate 18 Blood Pressure 162/74 H Blood Pressure [Right Arm] Blood Pressure Mean Blood Pressure Mean [Right Arm] Blood Pressure Source Automatic Cuff Blood Pressure Position Sitting 02 Sat by Pulse Oximetry Oxygen Delivery Method Room Air Lab Data Lab Results 05/29/23 11:44: WBC 9.4, RBC 3.80 L, Hgb 11.5 L, Hct 34.8 L, MCV 91.6, MCH 30.3, MCHC 33.1, RDW 15.3, Plt Count 197, MPV 8.6, Neut % (Auto) 75.2, Lymph % (Auto) 17.4, [place] % (Auto) 4.4, Eos % (Auto) 2.5, Baso % (Auto) 0.5, Neut # (Auto) 7.1, Lymph # (Auto) 1.6, [place] # (Auto) 0.4, Eos # (Auto) 0.2, Baso # (Auto) 0.1, S odium 135 L, Potassium 2.9 L*, Chloride 96 L, Carbon Dioxide 37 H, Anion Gap 4.9 L, BUN 15, Creatinine 1.70 H, Estimated Creat Clear 48, Estimated GFR 39 L, Est GFR ( Amer) 48 L, Glucose 291 H, Calcium 7.9 L, Magnesium 1.1 L, Total Bilirubin 0.6, AST 25, ALT 9 L, Alkaline Phosphatase 116, Total Protein 7.2, A lbumin 3.1 L, Globulin 4.1 H, Albumin/Globulin Ratio 0.8 L, Acetone Level None detected 05/29/23 12:28: VBG pH 7.34, VBG pCO2 55.6 H, VBG pO2 24.9 L, VBG HCO3 29.3, VBG Total CO2 31.0 H, VBG O2 Saturation 43.1 L, VBG Base Excess 3.6 H, VBG Lactic Acid 2.0 05/29/23 12:43: Urine Color Yellow, Urine Appearance Cloudy, Urine pH 6.0, Ur Specific [place] 1.010, Urine Protein 2+, Urine Glucose (UA) 2+, Urine Ketones Negative, Urine Blood 2+, Urine Nitrate Negative, Urine Bilirubin Negative, Urine Urobilinogen 0.2, Ur Leukocyte Esterase 2+ A, Urine RBC 20-50, Urine WBC Tntc, Urine Bacteria 3+, Urine Yeast 3+ 05/29/23 11:44 05/29/23 11:44 Orders (Tests/Meds): ED MEDICATIONS Generic Name Dose Route Start Last Admin Trade Name Freq PRN Reason Stop Dose Admin Meropenem 1 gm/ Sodium 100 mls @ 100 mls/hr 05/29/23 22:00 Chloride IV 06/08/23 21:59 Q8H [facility] Insulin Human Lispro 0 unit 05/29/23 16:30 05/29/23 16:31 Humalog 100 Units/Ml 3ml Vial ([facility]) SQ 06/28/23 16:29 Not Given ACHS [facility] Protocol Discontinued Medications Generic Name Dose Route Start Last Admin Trade Name Freq PRN Reason Stop Dose Admin Lactated Ringer's 1,000 mls @ 999 mls/hr 05/29/23 12:13 05/29/23 12:40 Lactated Ringer's 1000 Ml Bag IV 05/29/23 13:13 999 mls/hr .Q1H1M ONE Administration Meropenem 1 gm/ Sodium 100 mls @ 100 mls/hr 05/29/23 14:29 05/29/23 16:30 Chloride IV 05/29/23 14:30 100 mls/hr ONCE STA Administration Potassium Chloride 40 meq 05/29/23 14:25 05/29/23 16:30 Potassium Chloride 20meq Tab PO 05/29/23 14:26 40 meq ONCE ONE Administration ORDERS Category Date Time Status Consult to Case Management [CONS] Routine Cons 05/29/23 13:17 Active Acetone, Serum (Rapid) Stat Lab 05/29/23 11:44 Completed CBC w/Auto Diff [Complete Blood Count Auto Diff] Stat Lab 05/29/23 11:44 Completed CMP [Comprehensive Metabolic Panel] Stat Lab 05/29/23 11:44 Completed Complete Blood Count Auto Diff AMLAB Lab 05/30/23 06:00 Ordered Comprehensive Metabolic Panel AML[facility] Lab 05/30/23 06:00 Ordered MAG [Magnesium] Stat Lab 05/29/23 11:44 Completed Magnesium AML[facility] Lab 05/30/23 06:00 Ordered Osmolality Stat Lab 05/29/23 11:44 Received Urinalysis and Microscopic Stat Lab 05/29/23 12:43 Completed Urine Culture Stat Micro 05/29/23 12:43 Received VBG [Venous Blood Gas] Stat RT 05/29/23 12:28 Completed Medical Decision Narrative: Patient with history and exam per above presenting for evaluation of dysuria, hyperglycemia Diagnoses considered include cystitis, pyelonephritis, DKA, HHS, bacteremia, among others ED workup and treatment included: ED MEDICATIONS Generic Name Dose Route Start Last Admin Trade Name Freq PRN Reason Stop Dose Admin Meropenem 1 gm/ Sodium 100 mls @ 100 mls/hr 05/29/23 22:00 Chloride IV 06/08/23 21:59 Q8H [facility] Insulin Human Lispro 0 unit 05/29/23 16:30 05/29/23 16:31 Humalog 100 Units/Ml 3ml Vial ([facility]) SQ 06/28/23 16:29 Not Given ACHS [facility] Protocol Discontinued Medications Generic Name Dose Route Start Last Admin Trade Name Freq PRN Reason Stop Dose Admin Lactated Ringer's 1,000 mls @ 999 mls/hr 05/29/23 12:13 05/29/23 12:40 Lactated Ringer's 1000 Ml Bag IV 05/29/23 13:13 999 mls/hr .Q1H1M ONE Administration Meropenem 1 gm/ Sodium 100 mls @ 100 mls/hr 05/29/23 14:29 05/29/23 16:30 Chloride IV 05/29/23 14:30 100 mls/hr ONCE STA Administration Potassium Chloride 40 meq 05/29/23 14:25 05/29/23 16:30 Potassium Chloride 20meq Tab PO 05/29/23 14:26 40 meq ONCE ONE Administration ORDERS Category Date Time Status Consult to Case Management [CONS] Routine Cons 05/29/23 13:17 Active Acetone, Serum (Rapid) Stat Lab 05/29/23 11:44 Completed CBC w/Auto Diff [Complete Blood Count Auto Diff] Stat Lab 05/29/23 11:44 Completed CMP [Comprehensive Metabolic Panel] Stat Lab 05/29/23 11:44 Completed Complete Blood Count Auto Diff AMLAB Lab 05/30/23 06:00 Ordered Comprehensive Metabolic Panel AMLAB Lab 05/30/23 06:00 Ordered MAG [Magnesium] Stat Lab 05/29/23 11:44 Completed Magnesium AMLAB Lab 05/30/23 06:00 Ordered Osmolality Stat Lab 05/29/23 11:44 Received Urinalysis and Microscopic Stat Lab 05/29/23 12:43 Completed Urine Culture Stat Micro 05/29/23 12:43 Received VBG [Venous Blood Gas] Stat RT 05/29/23 12:28 Completed Labs were independently interpreted by me, significant for nonketotic hyperglycemia, hypokalemia in the setting of hyperglycemia, urinalysis with evidence of cystitis, after chart review, patient had recent admission for similar symptoms which, upon reviewing urine culture, revealed bacteria principally only susceptible to meropenem and ertapenem For this reason, patient will benefit from admission for further inpatient management and IV antibiotics. Patient was accepted for admission by hospitalist. Critical Care Critical Care Time Critical Care Time: No
--- NOTE | 2023-05-29 12:27 | PC.NURSE ---
NOTIFIED RT OF VBG ORDER
[2023-05-29 12:30] LABS: Basophils # 0.1 K/mm3 (0-0.2); Basophils % 0.5 % (0.1-2.0); Eosinophils # 0.2 K/mm3 (0.0-0.4); Eosinophils % 2.5 % (0.1-12.0); Hematocrit 34.8 % (42.0-52.0); Hemoglobin 11.5 g/dL (14.1-18.0); Lymphocytes # 1.6 K/mm3 (0.7-4.5); Lymphocytes % 17.4 % (10-50); Mean Corpuscular HGB Conc 33.1 g/dL (31.8-35.4); Mean Corpuscular Hemoglobin 30.3 pg (27.0-31.2); Mean Corpuscular Volume 91.6 fl (80-94); Mean Platelet Volume 8.6 fl (7.4-10.4); Monocytes # 0.4 K/mm3 (0.1-1.0); Monocytes % 4.4 % (1.7-9.3); Neutrophils # 7.1 K/mm3 (1.8-7.8); Neutrophils % 75.2 % (37.0-80.0); Platelet Count 197 K/mm3 (142-424); Red Cell Distribution Width 15.3 % (11.5-17.5); White Blood Count 9.4 K/mm3 (4.8-10.8)
[2023-05-29 12:31] LABS: Chloride 96 mmol/L (98-107); Sodium 135 mmol/L (136-145)
[2023-05-29 12:34] LABS: Alanine Aminotransferase 9 U/L (12-78); Albumin Level 3.1 g/dl (3.5-5.0); Albumin/Globulin Ratio 0.8 (1.1-1.8); Alkaline Phosphatase 116 U/L (38-126); Anion Gap 4.9 mEq/L (5-15); Aspartate Amino Transferase 25 U/L (17-59); Bilirubin,Total 0.6 mg/dl (0.2-1.3); Blood Urea Nitrogen 15 mg/dl (9-20); Calcium 7.9 mg/dl (8.4-10.2); Carbon Dioxide 37 mmol/L (22.0-30.0); Creatinine Clearance Estimated 48 mL/min (50-200); Estimated Glomerular Filt Rate 39 ml/min (>60); GFR (African American) 48 ML/MIN (>60); Globulin 4.1 g/dL (1.3-3.2); Glucose 291 mg/dl (74-100); Magnesium 1.1 mg/dl (1.6-2.3); Total Protein,Serum 7.2 g/dl (6.3-8.2)
[2023-05-29 12:37] LABS: VBG Base Excess 3.6 mmol/L (-2.4-2.3); VBG HCO3 29.3 mmol/L (23-30); VBG Oxygen Saturation 43.1 % (50-70); VBG PCO2 55.6 mmol/L (35-51); VBG PH 7.34 mmol/L (7.31-7.41); VBG PO2 24.9 mmol/L (28-40)
[2023-05-29] MEDS: LACTATED RINGERS 1000ML 1,000 ML 999 ML IV (12:40)
[2023-05-29 12:45] LABS: Potassium 2.9 mmoL/L (3.5-5.1)
[2023-05-29 12:47] LABS: Microscopic, Urine URINE MICROSCOPIC (MICROSCOPIC)
[2023-05-29 12:52] LABS: Bilirubin,Urine Negative (Negative); Blood, Urine 2+ (Negative); Glucose,Urine (UA) 2+ (Negative); Ketones,Urine Negative (Negative); Leukocyte Esterase,Urine 2+ (Negative); Nitrate,Urine Negative (Negative); Protein,Urine 2+ (Negative); Urobilinogen,Urine 0.2 EU/dl (0.2)
[2023-05-29 12:53] LABS: Appearance,Urine Cloudy (Clear); Color,Urine Yellow (Yellow)
[2023-05-29 13:09] LABS: Acetone, Serum (Rapid) None Detected (None Detect)
--- NOTE | 2023-05-29 13:43 | PC.NURSE ---
family requesting to speak to care management r/t placement. sera chin at the bedside.
[2023-05-29 13:47] LABS: Bacteria,Urine 3+ /lpf; WBC,Urine TNTC #/hpf (0-3); Yeast,Urine 3+ /lpf
[2023-05-29 13:50] LABS: RBC,Urine 20-50 #/hpf (0-3)
--- NOTE | 2023-05-29 14:05 | SW/DCPLANNER ---
Addendum entered by [facility] 06/01/23 10:14: I have verified w/ Sophia at [place] that patient can admit tomorrow 06/01 SNF level of care and will need IV antibiotics till 06/04. Addendum entered by [facility] 06/01/23 07:31: Sophia w/ [place] can accept this patient SNF level of care tomorrow 06/02/23. Addendum entered by [facility] 05/31/23 12:27: Patient's daughter has requested that patient go to [place]. Sophia w/ [facility] requested that Seroquel be stopped prior to admission: Dr Chinchilla stated he will add this to discharge summary. I have updated patient/family and Chacha w/ [facility]. Addendum entered by [facility] 05/31/23 12:12: Chacha w/ [facility] stated that she can accept this patient SNF level of care. I will update patient and family. Addendum entered by Malinda Louis RN 05/30/23 15:25: Spoke with patient today regarding discharge plan, patient has agreed to go to SNF r/t need for PT/OT and IV antibiotics. PICC line has been placed. Patient Choice signed for [facility], [facility]. Clinical faxed to all facilities. Patient will be here through Sunday night and plan is to have SNF bed available for discharge on Sunday. Original Note: I spoke w/ this patient and his family in the ED regarding placement. Patient/family expressed an interest in [place]. I did explain to family that at this time patient would require private pay unless admitted and have a qualifying stay today. ED is still working this patient. Patient/family stated that if patient is not admitted they would prefer to return home and resume home health w/ [facility]. Patient/family are not interested in a private sitter's list at this time. I will continue to follow up w/ patient and family to assist w/ any further needs.
--- NOTE | 2023-05-29 14:31 | EXP.HP ---
History of Present Illness *Admission Date: 05/29/23 *Reason for visit:: weakness, urinary symptoms *History of present illness: Mr. Ruiz is a 77-year-old male with history of Parkinson's, hypertension, depression, diabetes, hypothyroid. He presented to the ER because of worsening weakness. States he had bilateral leg weakness that is gotten worse since waking up today. Home health nurse saw him and advised him to go to the ER for further evaluation. Denies fever, pain, nausea or vomiting. Recently had UTI with multidrug-resistant bacteria. On evaluation to the ER he states he has been having difficulty walking. Denies any significant pain. Difficulty may have began yesterday but worsened this morning. Denies any fall or trauma. No confusion. Denies syncope, headache, chest pain. Has also been having some burning when he pees and difficulty going to the bathroom. Denies any constipation or diarrhea. Evaluation in the ER concerning for UTI with grossly abnormal urine. He is also weak to the point that he thinks he needs possible placement in rehab. Medicine consulted for treatment of suspected multidrug-resistant UTI and therapy evaluation. Upon arriving to the floor, patient's blood sugar noted to be low. Responded to juice and p.o. intake. Reports taking his insulin (glargine) this morning. Otherwise feels well. Is alert and oriented x 3. On room air. [facility] Disclaimer: The information contained in this section may have been updated after the patient was seen, as this information can be updated by other users. Medical History GERD (gastroesophageal reflux disease) Gout Insomnia CKD (chronic kidney disease) Decreased mobility History of osteomyelitis Osteomyelitis Surgical History History of amputation of toe History of colonoscopy History of laparoscopic cholecystectomy Family History Other No significant family history Social History Smoking Status: Never smoker alcohol intake: never substance use type: denies use current occupational status: unemployed Travel in the last 8 weeks: None household members: family housing: house number of children: 1 caffeine: Yes Review of Systems Review of Systems Review of systems (narrative): 14 point review of systems performed, pertinent positives and negatives as per HPI Meds Home Medications and Allergies Home Medications Medication Instructions Recorded Confirmed Type atorvastatin 40 mg tablet 40 mg PO HS 04/22/23 05/29/23 History losartan 100 mg tablet 100 mg PO DAILY 04/22/23 05/29/23 History paroxetine HCl 40 mg tablet 40 mg PO DAILY 04/22/23 05/29/23 History aspirin 81 mg chewable tablet 81 mg PO DAILY 05/08/23 05/29/23 History gabapentin 400 mg capsule 400 mg PO BIDP PRN NEUROPATHY 05/08/23 05/29/23 History hydrocodone 5 mg-acetaminophen 325 1 tab PO BIDP PRN pain 05/08/23 05/29/23 History mg tablet insulin glargine 100 unit/mL (3 80 unit SQ HS 05/08/23 05/29/23 History mL) subcutaneous pen (Lantus Solostar U-100 Insulin) omeprazole 20 mg capsule,delayed 20 mg PO DAILY 05/08/23 05/29/23 History release oxybutynin chloride 5 mg 5 mg PO DAILY 05/08/23 05/29/23 History tablet,extended release 24 hr tamsulosin 0.4 mg capsule 0.4 mg PO DAILY 05/08/23 05/29/23 History allopurinol 300 mg tablet 300 mg PO DAILY 05/29/23 05/29/23 History carbidopa 25 mg-levodopa 100 mg 1 tab PO QID 05/29/23 05/29/23 History tablet carvedilol 25 mg tablet 25 mg PO BID 05/29/23 05/29/23 History insulin aspart U-100 100 unit/mL 40 unit SQ AC 05/29/23 05/29/23 History (3 mL) subcutaneous pen (Novolog FlexPen U-100 Insulin aspart) levothyroxine 25 mcg tablet 25 mcg PO DAILY 05/29/23 05/29/23 History quetiapine 100 mg tablet 100 mg PO HS 05/29/23 05/29/23 History trazodone 50 mg tablet 50 mg PO HS 05/29/23 05/29/23 History New Prescriptions to Start Prescriptions: Allergies Allergy/AdvReac Type Severity Reaction Status Date / Time No Known Allergies Allergy Verified 03/06/23 14:00 Exam Data for Last 24 hours Vital signs and Labs for Last 24 Hours: Temp Pulse Resp BP Pulse Ox O2 Del Method 99.4 F 65 20 153/93 H 97 Room Air 05/29/23 11:44 05/29/23 14:01 05/29/23 11:44 05/29/23 14:01 05/29/23 14:01 05/29/23 13:30 Laboratory Results - last 24 hr 05/29/23 11:44: WBC 9.4, RBC 3.80 L, Hgb 11.5 L, Hct 34.8 L, MCV 91.6, MCH 30.3, MCHC 33.1, RDW 15.3, Plt Count 197, MPV 8.6, Neut % (Auto) 75.2, Lymph % (Auto) 17.4, Twiggs % (Auto) 4.4, Eos % (Auto) 2.5, Baso % (Auto) 0.5, Neut # (Auto) 7.1, Lymph # (Auto) 1.6, Twiggs # (Auto) 0.4, Eos # (Auto) 0.2, Baso # (Auto) 0.1, Sodium 135 L, Potassium 2.9 L*, Chloride 96 L, Carbon Dioxide 37 H, Anion Gap 4.9 L, BUN 15, Creatinine 1.70 H, Estimated Creat Clear 48, Estimated GFR 39 L, Est GFR ( Amer) 48 L, Glucose 291 H, Calcium 7.9 L, Magnesium 1.1 L, Total Bilirubin 0.6, AST 25, ALT 9 L, Alkaline Phosphatase 116, Total Protein 7.2, Albumin 3.1 L, Globulin 4.1 H, Albumin/Globulin Ratio 0.8 L, Acetone Level None detected 05/29/23 12:28: VBG pH 7.34, VBG pCO2 55.6 H, VBG pO2 24.9 L, VBG HCO3 29.3, VBG Total CO2 31.0 H, VBG O2 Saturation 43.1 L, VBG Base Excess 3.6 H, VBG Lactic Acid 2.0 05/29/23 12:43: Urine Color Yellow, Urine Appearance Cloudy, Urine pH 6.0, Ur Specific Gro[place] 1.010, Urine Protein 2+, Urine Glucose (UA) 2+, Urine Ketones Negative, Urine Blood 2+, Urine Nitrate Negative, Urine Bilirubin Negative, Urine Urobilinogen 0.2, Ur Leukocyte Esterase 2+ A, Urine RBC 20-50, Urine WBC Tntc, Urine Bacteria 3+, Urine Yeast 3+ I & O for Last 24 hours: Intake & Output 05/26/23 05/27/23 05/28/23 05/29/23 23:59 23:59 23:59 23:59 Weight 92.533 kg Constitutional Constitutional: no acute distress, average body habitus and chronically ill appearing *Routine HEENT Exam Head: Present normocephalic Eye: Present EOMI and PERRL ENT: Present mucous membranes moist *Routine Neck Exam Neck: Present supple; Absent lymphadenopathy *Routine Respiratory Exam Respiratory: Present CTA bilaterally; Absent rhonchi, wheezes or crackles *Routine Cardiovascular Exam Cardiovascular: Present RRR *Routine Abdominal Exam Abdominal: Present soft and normoactive bowel sounds; Absent tenderness *Routine Rectal Exam Rectal:: deferred *Routine Genitalia Exam Genitalia:: deferred *Routine Extremities Exam Extremities: Absent cyanosis, clubbing or edema Comments: Bilateral thenar wasting *Routine Skin Exam Skin: Present warm; Absent rash *Routine Neurological Exam Neurological: Present alert, oriented X3, moving all extremities and tremors; Absent altered mental status Assessment and Plan *Assessment and plan (1) UTI (urinary tract infection): Status: Acute Category: Medical Code(s): N39.0 - Urinary tract infection, site not specified (2) HLD (hyperlipidemia): Status: Acute Category: Medical Code(s): E78.5 - Hyperlipidemia, unspecified (3) HTN (hypertension): Status: Acute Category: Medical Code(s): I10 - Essential (primary) hypertension (4) Hypothyroidism: Status: Chronic Category: Medical Code(s): E03.9 - Hypothyroidism, unspecified (5) Diabetes mellitus: Status: Chronic Category: Medical Code(s): E11.9 - Type 2 diabetes mellitus without complications (6) Balance problem: Status: Acute Category: Medical Code(s): R26.89 - Other abnormalities of gait and mobility (7) Type 2 diabetes mellitus with diabetic neuropathy, with long-term current use of insulin: Status: Chronic Category: Medical Code(s): E11.40 - Type 2 diabetes mellitus with diabetic neuropathy, unspecified; 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 Concern for UTI. Previous cultures show multidrug-resistant organism. Discussed case with ER, request admission for IV antibiotics, therapy eval, possible placement. Medicine agreed to admit for further management. Patient hemodynamically stable on arrival to the floor. Tolerating p.o. intake. Had low glucose but was asymptomatic. Improving with p.o. repletion. Problems addressed as follows: UTI Multidrug resistant bacterial infection (achromobacter) -Urine grossly abnormal with leuk esterase and nitrate. Recent culture with resistant pathogen sensitive only to imipenem and meropenem. Will initiate meropenem 1 g every 8 hours. - Repeat urine culture pending -If blood cultures negative at 24 hours, will consider placement of PICC line for continued treatment, will need 7 to 10 days of IV antibiotics for his infection - White cell count normal at 9.4. Potassium low at 2.9, replacing both p.o. and IV. Creatinine at baseline at 1.7. -Repeat CBC, CMP, magnesium ordered for the morning. Parkinson's: Complicates all aspects of his care. Continue home carbidopa/levodopa 1 tab 4 times a day PT/OT evaluating patient for possible placement. Progressive weakness and stiffness in legs Continue allopurinol 300 mg daily for gout Continue Lipitor 40 mg nightly for hyperlipidemia Continue gabapentin 400 mg twice daily as needed for neuropathy Type 2 diabetes: Continue Lantus at decreased dose of 50 units every morning. Sliding scale insulin as needed ACHS. Fingerstick glucose ACHS. A1c pending Continue levothyroxine 25 mcg daily Continue losartan 100 mg for hypertension Continue Paxil 40 mg daily, Seroquel 100 mg nightly, trazodone 50 mg nightly for sleep and mood Continue tamsulosin 0.1 g nightly for BPH Continue carvedilol 5 mg twice daily for hypertension Full code Diabetic diet
--- OUTSIDE RECORDS SUMMARY | 2023-05-29 14:44 | XMS_ITS | Continuity of Care Document ---
Author Name Unknown Organization [facility] Address [address] [place] [address] Phone Care Team Providers Care Trauma Surgeon Name Role Phone Erasmo Lizama MD Unavailable [...] Diagnoses Date Provider Providers Copied on Encounter [facility] , [address] [facility], [place], [address], [place] tel:[phone] [facility] No Information 4 Alda Zimmerman. [address] [place] [address], [address]. tel: [phone] [facility] , [address] [place] [address], [facility], tel:[phone] [facility] diabetes (chief complaint) Cataract (chief complaint) Diabetes with ophthalmic manifestations, type II or unspecified type, uncontrolledMild nonproliferative diabetic retinopathySenile nuclear sclerosisVitreous degenerationMacul ar puckering of retina 4 Alda Zimmerman. [address] [place] [address], [address]. tel: [phone] [facility] , [address] [place] [address], [facility], tel:[phone] [facility] Diabetes Mellitus, Adult Onset, UncontrolledSenil e nuclear sclerosisVitreous degeneration 3 Alda Zimmerman. [address] [place] [address], [address]. tel: [phone] [facility] , [address] [place] [address], [facility], [place] tel:[phone] [facility] No Information 1 Alda Zimmerman. [address] [place] [address], [address]. tel: [phone] Referring Provider: MELLISA Joe, [address] [place] [address] [address], [place], [address]. tel:[phone] Family History Family Member Type Diagnosis Age At Onset No Information Payers Payer name Insurance type Covered green party ID Authoriza tion(s) No Information Social History [...] t No Information Instructions Date Instruction Additional Infor jason - Cataracts - No juli atment currently recommended. The patient will monitor vision changes and contact us with any decrease in vision. Patient was given a prescription for new glasses today. Related to Senile nuclear sclerosis - There is no eviden ce of retinal pathology. All signs and risks of retinal detachment and tears were discussed in detail. Patient instructed to call the office immediately if any new symptoms noted. Related to Vitreous degeneration - Discussed with daniela cruz; will continue to monitor. Related to Macular puckering of retina - Return in 1 year w ivett Lizama M.D. for Diabetic Eval Related to Diabetes with ophthalmic manifestations, type II or unspecified type, uncontrolled - Diabetes type II: mild nonproliferative diabetic [...] Eval. Related to Diabetes, adult onset, uncontrolled Diabetes, adult onse t, uncontrolled - Diabetes type II: no background retinopathy, no signs of neovascularization noted. Discussed ocular and systemic benefits of blood sugar control. Educational materials provided: or verbally educated Related to Diabetes, adult onset, uncontrolled Cataract, Nuclear Sc lerosis OU - No treatment currently recommended. The patient will monitor vision changes and contact us with any decrease in vision. Related to Cataract, Nuclear Sclerosis Vitreous Detachment OD - There is no evidence of retinal pathology. Related to Vitreous Detachment Assessments Type Assessment Date No Information Patient Care Teams Name Effective Dates (start - stop) Status Members No Information
--- OUTSIDE RECORDS SUMMARY | 2023-05-29 14:44 | XMS_ITS | Clinical Summary ---
Author Name Unknown Address [address] [place] [address] Phone Organization [facility] Address [address] [place] [address] Phone Care Team Providers Care Chiropractic Assistant Name Role Phone Unavailable Unavailable Conditions or Problems No information available. Medications No information available. Medications Administered No information available. Allergies, Adverse Reactions, Alerts No information available. Results No information available. Plan of Care No information available. Procedures No information available. Vital Signs No information available. Immunizations No information available. Advance Directives No information available.
--- NOTE | 2023-05-29 15:16 | PC.NURSE ---
report called to dinesh tucker
--- NOTE | 2023-05-29 15:49 | HMH.PHAINT1 ---
Pharmacy Intervention Comments: HOME MEDICATION LIST VERIFIED VIA OUTSIDE PHARMACY AND PHYSICAN NOTES
[2023-05-29] MEDS: POTASSIUM CHLORIDE 20MEQ TAB 40 MEQ PO ×2 (16:30→22:05)
[2023-05-29] MEDS: MEROPENEM 1 GM in 0.9 % SODIUM CHLORIDE 100 ML IV ×2 (16:30→21:03)
[2023-05-29 16:49] LABS: POC Glucose,Bedside 79 (70-110)
[2023-05-29 17:30] LABS: Glucose,Random 51 mg/dL (74-100)
--- NOTE | 2023-05-29 19:07 | PC.NURSE ---
Patient new admit from ER this shift. Patient a&ox4 and vss. Patient's FSBS 47 at 1630. MD notified, lab order placed for stat glucose and patient given juice. FSBS up to 79 after juice and patient given snack of a chicken salad sandwich.
[2023-05-29] MEDS: TAMSULOSIN 0.4MG CAPSULE 0.400000000000000022 MG PO (20:09)
[2023-05-29] MEDS: CARVEDILOL 25MG TABLET 25 MG PO (20:09)
[2023-05-29] MEDS: QUETIAPINE 100MG TABLET 100 MG PO (20:09)
[2023-05-29] MEDS: PANTOPRAZOLE 40MG TABLET 40 MG PO (20:09)
[2023-05-29] MEDS: TRAZODONE 50MG TABLET 50 MG PO (20:09)
[2023-05-29] MEDS: ATORVASTATIN 40MG TABLET 40 MG PO (20:09)
[2023-05-29] MEDS: CARBIDOPA/LEVODOPA 25/100MG TABLET 1 EACH PO (20:09)
--- NOTE | 2023-05-29 20:14 | PC.NURSE ---
Contacted Hospitalist r/t D5/NS order with SILVANA 188 @ 2013 - holding D5 fluids at this time.
[2023-05-29] MEDS: humaLOG 100 UNITS/ML 3ML VIAL (SSI) SQ (20:16)
[2023-05-29 20:28] LABS: POC Glucose,Bedside 188 (70-110)
--- NOTE | 2023-05-29 22:09 | PC.NURSE ---
Contacted Hospitalist r/t K concern and replacement. After 40 PO K (2.9) during dayshift, hospitalist Slava ordered stat K lab (3.0), reported critical lab and administered another 40 K PO. Patient placed on cardiac monitoring for precautions.
[2023-05-30] VITALS: BP 154/90; PULSE 71; RESP 16; TEMP 37.3; O2SAT 98
[2023-05-30 04:00] VITALS: BP 148/78; PULSE 74; PULSE 75; RESP 16; TEMP 37; O2SAT 96; BMI 25.8
[2023-05-30 04:43] LABS: POC Glucose,Bedside 141 (70-110)
[2023-05-30] MEDS: MEROPENEM 1 GM in 0.9 % SODIUM CHLORIDE 100 ML IV ×3 (05:10→21:16)
[2023-05-30 06:44] LABS: Chloride 104 mmol/L (98-107); Potassium 3.7 mmoL/L (3.5-5.1); Sodium 141 mmol/L (136-145)
[2023-05-30 06:47] LABS: Alanine Aminotransferase 4 U/L (12-78); Albumin Level 2.8 g/dl (3.5-5.0); Albumin/Globulin Ratio 0.8 (1.1-1.8); Alkaline Phosphatase 107 U/L (38-126); Anion Gap 3.7 mEq/L (5-15); Aspartate Amino Transferase 33 U/L (17-59); Bilirubin,Total 0.6 mg/dl (0.2-1.3); Blood Urea Nitrogen 13 mg/dl (9-20); Calcium 7.9 mg/dl (8.4-10.2); Carbon Dioxide 37 mmol/L (22.0-30.0); Creatinine Clearance Estimated 51 mL/min (50-200); Estimated Glomerular Filt Rate 46 ml/min (>60); GFR (African American) 55 ML/MIN (>60); Globulin 3.7 g/dL (1.3-3.2); Glucose 143 mg/dl (74-100); Total Protein,Serum 6.5 g/dl (6.3-8.2)
[2023-05-30 06:48] LABS: Magnesium 1.1 mg/dl (1.6-2.3)
[2023-05-30 06:53] LABS: Basophils # 0.1 K/mm3 (0-0.2); Basophils % 0.5 % (0.1-2.0); Eosinophils # 0.2 K/mm3 (0.0-0.4); Eosinophils % 1.7 % (0.1-12.0); Hemoglobin 10.9 g/dL (14.1-18.0); Lymphocytes # 1.5 K/mm3 (0.7-4.5); Lymphocytes % 14.2 % (10-50); Mean Corpuscular Hemoglobin 30.1 pg (27.0-31.2); Mean Corpuscular Volume 91.3 fl (80-94); Mean Platelet Volume 8.5 fl (7.4-10.4); Monocytes # 0.7 K/mm3 (0.1-1.0); Monocytes % 6.6 % (1.7-9.3); Neutrophils # 8.2 K/mm3 (1.8-7.8); Platelet Count 221 K/mm3 (142-424); Red Blood Count 3.62 M/mm3 (4.60-6.20); Red Cell Distribution Width 15.4 % (11.5-17.5); White Blood Count 10.6 K/mm3 (4.8-10.8)
[2023-05-30 08:00] VITALS: BP 149/70; PULSE 82; PULSE 90; RESP 18; TEMP 37.7; O2SAT 96
[2023-05-30] MEDS: MAGNESIUM SULFATE IN WATER 2 GM/50 ML PIGGYBACK IV (09:24)
[2023-05-30] MEDS: ASPIRIN 81MG CHEWABLE TABLET 81 MG PO (09:24)
[2023-05-30] MEDS: LEVOTHYROXINE 25MCG (0.025MG) TAB 25 MCG PO (09:25)
[2023-05-30] MEDS: OXYBUTYNIN 5MG TAB 2.5 MG PO ×2 (09:25→21:10)
[2023-05-30] MEDS: IRBESARTAN 150MG TAB 150 MG PO (09:25)
[2023-05-30] MEDS: CARBIDOPA/LEVODOPA 25/100MG TABLET 1 EACH PO ×4 (09:25→21:11)
[2023-05-30] MEDS: ALLOPURINOL 300MG TABLET 300 MG PO (09:25)
[2023-05-30] MEDS: CARVEDILOL 25MG TABLET 25 MG PO ×2 (09:25→21:11)
[2023-05-30] MEDS: ENOXAPARIN 40MG/0.4ML SYRINGE 40 MG SQ (09:25)
[2023-05-30] MEDS: PARoxetine 20MG TABLET 40 MG PO (09:26)
[2023-05-30] MEDS: MAGNESIUM OXIDE 400MG TABLET 400 MG PO ×2 (09:28→21:11)
[2023-05-30] MEDS: INSULIN GLARGINE 100 UNITS/ML 3ML FLEXPEN 60 UNIT SQ (09:30)
[2023-05-30 09:43] LABS: POC Glucose,Bedside 162 (70-110)
--- NOTE | 2023-05-30 10:51 | XR_ITS ---
FINAL REPORT CLINICAL HISTORY: Confirm PICC line placement COMPARISON: 05/08/2023 FINDINGS: PICC line is present with the tip at the junction of the SVC and right atrium. The heart size is normal. The mediastinum is normal. There is mild atelectasis in the right lung base. There are no pleural effusions. There is no pneumothorax. There is no osseous abnormality. IMPRESSION: PICC line tip at the junction of the SVC and right atrium. Mild atelectasis right lung base. Reviewed, Interpreted and Dictated by Danny Shannon MD Transcribed by Sandra Almaguer Authenticated and [facility]
[2023-05-30 12:00] VITALS: PULSE 80
[2023-05-30 12:41] LABS: POC Glucose,Bedside 151 (70-110)
--- OUTSIDE RECORDS SUMMARY | 2023-05-30 14:53 | XMS_ITS | Continuity of Care Document ---
Author Name Unknown Organization [facility] Address [address] [place] [address] Phone Care Team Providers Care Radio Performer Name Role Phone Erasmo Lizama MD Unavailable [...] Diagnoses Date Provider Providers Copied on Encounter [facility] , [address] [facility], [place], [address], [place] tel:[phone] [facility] No Information 4 Alda Zimmerman. [address] [place] [address], [address]. tel: [phone] [facility] , [address] [place] [address], [facility], tel:[phone] [place] [facility] diabetes (chief complaint) Cataract (chief complaint) Diabetes with ophthalmic manifestations, type II or unspecified type, uncontrolledMild nonproliferative diabetic retinopathySenile nuclear sclerosisVitreous degenerationMacul ar puckering of retina 4 Alda Zimmerman. [address] [place] [address], [address]. tel: [phone] [facility] , [address] [place] [address], [facility], tel:[phone] [facility] Diabetes Mellitus, Adult Onset, UncontrolledSenil e nuclear sclerosisVitreous degeneration 3 Alda Zimmerman. [address] [place] [address], [address]. tel: [phone] [facility] , [address] [place] [address], [facility], [place] tel:[phone] [facility] No Information 1 Alda Zimmerman. [address] [place] [address], [address]. tel: [phone] Referring Provider: MELLISA Joe, [address] [place] [address] [address], [place], [address]. tel:[phone] Family History Family Member Type Diagnosis Age At Onset No Information Payers Payer name Insurance type Covered republican ID Authoriza tion(s) No Information Social History [...]
--- OUTSIDE RECORDS SUMMARY | 2023-05-30 14:53 | XMS_ITS | Clinical Summary ---
Author Name Unknown Address [address] [place] [address] Phone Organization [facility] Address [address] [place] [address] Phone Care Team Providers Care Leave Manager Name Role Phone Unavailable Unavailable Conditions or Problems No information available. Medications No information available. Medications Administered No information available. Allergies, Adverse Reactions, Alerts No information available. Results No information available. Plan of Care No information available. Procedures No information available. Vital Signs No information available. Immunizations No information available. Advance Directives No information available.
[2023-05-30 15:03] VITALS: BMI 25.8
[2023-05-30 16:00] VITALS: BP 155/78; PULSE 70; PULSE 78; RESP 20; TEMP 36.9; O2SAT 97
[2023-05-30 17:08] LABS: POC Glucose,Bedside 133 (70-110)
--- NOTE | 2023-05-30 18:31 | P.PN_ITS ---
Subjective *Date: 05/30/23 *Time: 22:45 Interval history: Patient doing well. On room air. Alert and oriented x 3. Remains quite weak in his legs. Working with therapy today. Denies any nausea, vomiting, chest pain. Amenable to placement. Medical Exam Vital signs and Labs for Last 24 Hours: Vital Signs Temp Pulse Pulse Resp BP Pulse Ox O2 Del Method 05/30/23 16:00 98.5 F 78 20 155/78 H 97 Room Air 05/30/23 13:00 Room Air 05/30/23 12:00 80 05/30/23 11:00 Non-Rebreather 05/30/23 09:00 Room Air 05/30/23 08:00 90 05/30/23 08:00 Room Air 05/30/23 08:00 99.8 F H 82 18 149/70 H 96 Room Air 05/30/23 06:19 Room Air 05/30/23 04:33 Room Air 05/30/23 04:00 75 05/30/23 04:00 98.6 F 74 16 148/78 H 96 05/30/23 02:20 Room Air 05/30/23 01:00 Room Air 05/30/23 00:00 99.2 F 71 16 154/90 H 98 05/30/23 00:00 71 05/29/23 23:00 Room Air 05/29/23 21:00 Room Air 05/29/23 20:00 73 05/29/23 20:00 98.9 F 67 16 149/68 H 98 Room Air 05/29/23 20:00 Room Air Intake and Output 05/30/23 05/30/23 05/30/23 07:59 15:59 23:59 Intake Total 100 / 460 360 / 460 Output Total 0 / 0 0 / 0 Balance 100 / 460 360 / 460 0 / 460 Intake: Intake, Oral Amount 360 / 360 Intake, Total IV Amount 100 / 100 Meropenem 1 gm In 0.9 % Sodium 100 / 100 Chloride 100 ml @ 100 mls/hr IV ONCE STA Rx#:[id number] Output: Output, Urine Amount 0 / 0 0 / 0 Other: Number of Voids 0 0 Number of Unmeasured Voids 0 Weight 86.591 kg 86.59 kg Patient Weight 05/30/23 23:59 Weight 86.59 kg Laboratory Results - last 24 hr 05/29/23 20:11: POC Glucose 188 H 05/29/23 20:55: Potassium 3.0 L 05/30/23 04:36: POC Glucose 141 H 05/30/23 05:54: WBC 10.6, RBC 3.62 L, Hgb 10.9 L, Hct 33.0 L, MCV 91.3, MCH 30.1, MCHC 33.0, RDW 15.4, Plt Count 221, MPV 8.5, Neut % (Auto) 77.0, Lymph % (Auto) 14.2, [place] % (Auto) 6.6, Eos % (Auto) 1.7, Baso % (Auto) 0.5, Neut # (Auto) 8.2 H, Lymph # (Auto) 1.5, Sutter # (Auto) 0.7, Eos # (Auto) 0.2, Baso # (Auto) 0.1, Sodium 141, Potassium 3.7 D, Chloride 104, Carbon Dioxide 37 H, Anion Gap 3.7 L, BUN 13, Creatinine 1.50 H, Estimated Creat Clear 51, Estimated GFR 46 L, Est GFR ( Amer) 55 L, Glucose 143 H D, Calcium 7.9 L, Magnesium 1.1 L, Total Bilirubin 0.6, AST 33 D, ALT 4 L D, Alkaline Phosphatase 107, Total Protein 6.5, Albumin 2.8 L, Globulin 3.7 H, Albumin/Globulin Ratio 0.8 L 05/30/23 09:29: POC Glucose 162 H 05/30/23 12:26: POC Glucose 151 H 05/30/23 16:23: POC Glucose 133 H I & O for Labs for Last 24 Hours: Intake & Output 05/27/23 05/28/23 05/29/23 05/30/23 23:59 23:59 23:59 23:59 Intake Total 1255 / 1255 460 / 460 Output Total 100 / 100 0 / 0 Balance 1155 / 1155 460 / 460 Weight 86.438 kg 86.59 kg Constitutional: Present no acute distress, average body habitus and chronically ill appearing Head: Present atraumatic and normocephalic ENT: Present normal exam Neck: Present normal inspection Respiratory: Present normal respiratory effort; Absent rhonchi, wheezes or crackles Cardiac: Present Reg Rate and Rhythm GI: Present soft and normal bowel sounds; Absent distention or tenderness Extremities: Present normal inspection and full ROM Skin: Present intact; Absent erythema Neuro: Present Grossly Intact, alert, awake, oriented x 3 and moves all extremities Assessment and Plan *Assessment and plan (1) UTI (urinary tract infection): Status: Acute Category: Medical Code(s): N39.0 - Urinary tract infection, site not specified (2) HLD (hyperlipidemia): Status: Acute Category: Medical Code(s): E78.5 - Hyperlipidemia, unspecified (3) HTN (hypertension): Status: Acute Category: Medical Code(s): I10 - Essential (primary) hypertension (4) Hypothyroidism: Status: Chronic Category: Medical Code(s): E03.9 - Hypothyroidism, unspecified (5) Diabetes mellitus: Status: Chronic Category: Medical Code(s): E11.9 - Type 2 diabetes mellitus without complications (6) Balance problem: Status: Acute Category: Medical Code(s): R26.89 - Other abnormalities of gait and mobility (7) Type 2 diabetes mellitus with diabetic neuropathy, with long-term current use of insulin: Status: Chronic Category: Medical Code(s): E11.40 - Type 2 diabetes mellitus with diabetic neuropathy, unspecified; Z79.4 - long term care social worker (current) use of insulin (8) Parkinson disease: Status: Chronic Category: Medical Code(s): G20 - Parkinson's disease Plan 77-year-old male with history of Parkinson's who presented to the ER with weakness. Concern for UTI. Previous cultures show multidrug-resistant organism. Discussed case with ER, request admission for IV antibiotics, therapy eval, possible placement. Medicine agreed to admit for further management. Patient hemodynamically stable on arrival to the floor. Tolerating p.o. intake. Had low glucose but was asymptomatic. Improving with p.o. repletion. Glucose stable today. White cell count normalized. Therapy recommends placement. Case management assisting. Continues to require inpatient management. Problems addressed as follows: UTI Multidrug resistant bacterial infection (achromobacter) -Urine grossly abnormal with leuk esterase and nitrate. Recent culture with resistant pathogen sensitive only to imipenem and meropenem. Will initiate meropenem 1 g every 8 hours. - Repeat urine culture pending -PICC line placed today. Will need IV antibiotics for at least 7 days. -If blood cultures negative at 24 hours, will consider placement of PICC line for continued treatment, will need 7 to 10 days of IV antibiotics for his infection - White cell count normal at 10.6, potassium 3.7, improved from yesterday at 2.9. BUN 13 with creatinine 1.5. This is at patient's baseline. Hypomagnesemia: Magnesium 1.1. Replacing oral and IV today. Repeat CBC, CMP, magnesium ordered for the morning. Parkinson's: Complicates all aspects of his care. Continue home carbidopa/levodopa 1 tab 4 times a day PT/OT evaluated, would benefit from placement for therapy Continue allopurinol 300 mg daily for gout Continue Lipitor 40 mg nightly for hyperlipidemia Continue gabapentin 400 mg twice daily as needed for neuropathy Type 2 diabetes: Continue Lantus at decreased dose of 50 units every morning. Sliding scale insulin as needed ACHS. Fingerstick glucose ACHS. Glucose 143 this morning A1c pending, previously poorly controlled last month at 9.1. Continue levothyroxine 25 mcg daily Continue losartan 100 mg for hypertension Continue Paxil 40 mg daily, Seroquel 100 mg nightly, trazodone 50 mg nightly for sleep and mood Continue tamsulosin 0.1 g nightly for BPH Continue carvedilol 5 mg twice daily for hypertension Full code Diabetic diet
[2023-05-30 20:00] VITALS: BP 187/81; PULSE 68; PULSE 72; RESP 18; TEMP 37.3; O2SAT 97
[2023-05-30 20:20] LABS: POC Glucose,Bedside 135 (70-110)
[2023-05-30] MEDS: TAMSULOSIN 0.4MG CAPSULE 0.400000000000000022 MG PO (21:11)
[2023-05-30] MEDS: ATORVASTATIN 40MG TABLET 40 MG PO (21:11)
[2023-05-30] MEDS: PANTOPRAZOLE 40MG TABLET 40 MG PO (21:11)
[2023-05-30] MEDS: TRAZODONE 50MG TABLET 50 MG PO (21:11)
[2023-05-30] MEDS: QUETIAPINE 100MG TABLET 100 MG PO (21:11)
[2023-05-31] VITALS (7 sets, daily range): BP systolic 144–196; BP diastolic 70–86; PULSE 60–71; RESP 18–20; TEMP 37–37.2; O2SAT 94–98; BMI 26.2
--- NOTE | 2023-05-31 02:42 | PC.NURSE ---
Has rested off and on this shift. Purewick in use, urine cloudy yellow. Denies pain or discomfort.. NSR on the tele monitor.
[2023-05-31 04:54] LABS: POC Glucose,Bedside 104 (70-110)
[2023-05-31] MEDS: MEROPENEM 1 GM in 0.9 % SODIUM CHLORIDE 100 ML IV ×3 (05:22→21:12)
[2023-05-31] MEDS: LEVOTHYROXINE 25MCG (0.025MG) TAB 25 MCG PO (06:17)
[2023-05-31 07:24] LABS: Basophils % 0.5 % (0.1-2.0); Eosinophils # 0.2 K/mm3 (0.0-0.4); Eosinophils % 2.5 % (0.1-12.0); Hematocrit 30.6 % (42.0-52.0); Hemoglobin 10.1 g/dL (14.1-18.0); Lymphocytes # 1.6 K/mm3 (0.7-4.5); Lymphocytes % 19.8 % (10-50); Mean Corpuscular HGB Conc 33.1 g/dL (31.8-35.4); Mean Corpuscular Hemoglobin 30.3 pg (27.0-31.2); Mean Corpuscular Volume 91.6 fl (80-94); Mean Platelet Volume 8.3 fl (7.4-10.4); Monocytes # 0.6 K/mm3 (0.1-1.0); Monocytes % 7.6 % (1.7-9.3); Neutrophils # 5.7 K/mm3 (1.8-7.8); Neutrophils % 69.6 % (37.0-80.0); Platelet Count 221 K/mm3 (142-424); Red Blood Count 3.34 M/mm3 (4.60-6.20); Red Cell Distribution Width 15.6 % (11.5-17.5); White Blood Count 8.2 K/mm3 (4.8-10.8)
--- NOTE | 2023-05-31 08:00 | EXP.ACUTE.PN ---
Subjective *Date: 05/31/23 *Time: 15:20 Interval history: No complaints this morning. Stable on room air. Tolerating p.o. intake. Continues to be quite weak. Working with therapy. Medical Exam Vital signs and Labs for Last 24 Hours: Vital Signs Temp Pulse Pulse Resp BP Pulse Ox O2 Del Method 05/31/23 06:34 Room Air 05/31/23 05:00 Room Air 05/31/23 04:00 98.6 F 61 18 168/75 H 97 Room Air 05/31/23 04:00 62 05/31/23 03:00 Room Air 05/31/23 01:00 Room Air 05/31/23 00:00 98.7 F 60 18 182/77 H 97 Room Air 05/31/23 00:00 60 05/30/23 23:00 Room Air 05/30/23 21:00 Room Air 05/30/23 20:00 99.2 F 68 18 187/81 H 97 Room Air 05/30/23 20:00 72 05/30/23 20:00 97 Room Air 05/30/23 19:00 Room Air 05/30/23 17:00 Room Air 05/30/23 16:00 70 05/30/23 16:00 98.5 F 78 20 155/78 H 97 Room Air 05/30/23 15:00 Room Air 05/30/23 13:00 Room Air 05/30/23 12:00 80 05/30/23 11:00 Non-Rebreather 05/30/23 09:00 Room Air Intake and Output 05/30/23 05/31/23 05/31/23 23:59 07:59 15:59 Intake Total 60 / 760 240 / 240 Output Total 0 / 0 1000 / 1000 Balance 60 / 760 -760 / -760 Intake: Intake, Oral Amount 60 / 660 240 / 240 Output: Output, Urine Amount 0 / 0 1000 / 1000 Other: Number of Voids 0 Number of Unmeasured Voids 2 0 Weight 87.997 kg Patient Weight 05/31/23 23:59 Weight 87.997 kg Laboratory Results - last 24 hr 05/29/23 11:44: Serum Osmolality 286 05/30/23 09:29: POC Glucose 162 H 05/30/23 12:26: POC Glucose 151 H 05/30/23 16:23: POC Glucose 133 H 05/30/23 20:12: POC Glucose 135 H 05/31/23 04:47: POC Glucose 104 05/31/23 06:19: WBC 8.2, RBC 3.34 L, Hgb 10.1 L, Hct 30.6 L, MCV 91.6, MCH 30.3, MCHC 33.1, RDW 15.6, Plt Count 221, MPV 8.3, Neut % (Auto) 69.6, Lymph % (Auto) 19.8, Tripp % (Auto) 7.6, Eos % (Auto) 2.5, Baso % (Auto) 0.5, Neut # (Auto) 5.7, Lymph # (Auto) 1.6, Tripp # (Auto) 0.6, Eos # (Auto) 0.2, Baso # (Auto) 0.0 I & O for Labs for Last 24 Hours: Intake & Output 05/28/23 05/29/23 05/30/23 05/31/23 23:59 23:59 23:59 23:59 Intake Total 1255 / 1255 520 / 760 240 / 240 Output Total 100 / 100 0 / 0 1000 / 1000 Balance 1155 / 1155 520 / 760 -760 / -760 Weight 86.438 kg 86.59 kg 87.997 kg Microbiology Reports for the Last 24 Hours: Microbiology 05/29/23 12:43 Urine,Clean Catch Urine Culture - Final Constitutional: Present no acute distress, average body habitus and chronically ill appearing Head: Present atraumatic and normocephalic ENT: Present normal exam Neck: Present normal inspection Respiratory: Present normal respiratory effort; Absent rhonchi, wheezes or crackles Cardiac: Present Reg Rate and Rhythm GI: Present soft and normal bowel sounds; Absent distention or tenderness Extremities: Present normal inspection and full ROM Skin: Present intact; Absent erythema Neuro: Present Grossly Intact, alert, awake, oriented x 3 and moves all extremities Assessment and Plan *Assessment and plan (1) UTI (urinary tract infection): Status: Acute Category: Medical Code(s): N39.0 - Urinary tract infection, site not specified (2) HLD (hyperlipidemia): Status: Acute Category: Medical Code(s): E78.5 - Hyperlipidemia, unspecified (3) HTN (hypertension): Status: Acute Category: Medical Code(s): I10 - Essential (primary) hypertension (4) Hypothyroidism: Status: Chronic Category: Medical Code(s): E03.9 - Hypothyroidism, unspecified (5) Diabetes mellitus: Status: Chronic Category: Medical Code(s): E11.9 - Type 2 diabetes mellitus without complications (6) Balance problem: Status: Acute Category: Medical Code(s): R26.89 - Other abnormalities of gait and mobility (7) Type 2 diabetes mellitus with diabetic neuropathy, with long-term current use of insulin: Status: Chronic Category: Medical Code(s): E11.40 - Type 2 diabetes mellitus with diabetic neuropathy, unspecified; Z79.4 - correction (current) use of insulin (8) Parkinson disease: Status: Chronic Category: Medical Code(s): G20 - Parkinson's disease Plan 77-year-old male with history of Parkinson's who presented to the ER with weakness. Concern for UTI. Previous cultures show multidrug-resistant organism. Discussed case with ER, request admission for IV antibiotics, therapy eval, possible placement. Medicine agreed to admit for further management. Patient hemodynamically stable on arrival to the floor. Tolerating p.o. intake. Had low glucose but was asymptomatic. Improving with p.o. repletion. Glucose stable today. White cell count normalized. Therapy recommends placement. Case management assisting. Continues to require inpatient management. Problems addressed as follows: UTI Multidrug resistant bacterial infection (achromobacter) [place] disturbances -Urine grossly abnormal with leuk esterase and nitrate. Recent culture with resistant pathogen sensitive only to imipenem and meropenem. Will initiate meropenem 1 g every 8 hours. - Repeat urine culture pending -PICC line placed 05/29. Continue meropenem 1 g 3 times daily for total of 7 days. Last dose on 06/04 - White cell count normal at 8.2. Hemoglobin 10.1. Potassium 3.1, magnesium 1.2. Replacing IV and oral today. - Repeat CBC, CMP, magnesium ordered for the morning. Parkinson's: Complicates all aspects of his care. Continue home carbidopa/levodopa 1 tab 4 times a day PT/OT evaluated, would benefit from placement for therapy Continue allopurinol 300 mg daily for gout Continue Lipitor 40 mg nightly for hyperlipidemia Continue gabapentin 400 mg twice daily as needed for neuropathy Type 2 diabetes: Continue Lantus at decreased dose of 40 units every morning. Sliding scale insulin as needed ACHS. Fingerstick glucose ACHS. Glucose 143 this morning A1c 10 Continue levothyroxine 25 mcg daily Continue losartan 100 mg for hypertension Continue Paxil 40 mg daily, Seroquel 100 mg nightly, trazodone 50 mg nightly for sleep and mood Continue tamsulosin 0.1 g nightly for BPH Continue carvedilol 5 mg twice daily for hypertension Full code Diabetic diet
[2023-05-31] MEDS: CARBIDOPA/LEVODOPA 25/100MG TABLET 1 EACH PO ×4 (08:47→20:28)
[2023-05-31] MEDS: ALLOPURINOL 300MG TABLET 300 MG PO (08:47)
[2023-05-31] MEDS: ASPIRIN 81MG CHEWABLE TABLET 81 MG PO (08:47)
[2023-05-31] MEDS: OXYBUTYNIN 5MG TAB 2.5 MG PO ×2 (08:48→20:30)
[2023-05-31] MEDS: IRBESARTAN 150MG TAB 150 MG PO (08:48)
[2023-05-31] MEDS: CARVEDILOL 25MG TABLET 25 MG PO ×2 (08:48→20:29)
[2023-05-31] MEDS: MAGNESIUM OXIDE 400MG TABLET 400 MG PO ×2 (08:48→20:29)
[2023-05-31] MEDS: ENOXAPARIN 40MG/0.4ML SYRINGE 40 MG SQ (08:48)
[2023-05-31] MEDS: PARoxetine 20MG TABLET 40 MG PO (08:49)
[2023-05-31 08:54] LABS: Chloride 103 mmol/L (98-107); Sodium 139 mmol/L (136-145)
[2023-05-31 08:55] LABS: Potassium 3.1 mmoL/L (3.5-5.1)
[2023-05-31 08:57] LABS: Alanine Aminotransferase 4 U/L (12-78); Albumin Level 2.4 g/dl (3.5-5.0); Albumin/Globulin Ratio 0.7 (1.1-1.8); Alkaline Phosphatase 97 U/L (38-126); Anion Gap 2.1 mEq/L (5-15); Aspartate Amino Transferase 27 U/L (17-59); Bilirubin,Total 0.5 mg/dl (0.2-1.3); Blood Urea Nitrogen 10 mg/dl (9-20); Calcium 7.4 mg/dl (8.4-10.2); Carbon Dioxide 37 mmol/L (22.0-30.0); Creatinine Clearance Estimated 60 mL/min (50-200); Estimated Glomerular Filt Rate 54 ml/min (>60); GFR (African American) 65 ML/MIN (>60); Globulin 3.6 g/dL (1.3-3.2); Glucose 101 mg/dl (74-100)
[2023-05-31 08:58] LABS: Magnesium 1.2 mg/dl (1.6-2.3)
--- NOTE | 2023-05-31 10:56 | HMH.OTEV ---
OT Inpatient Evaluation Rehab OT IP Evaluation Start: 05/30/23 10:11 Freq: ONCE Status: Active Protocol: Document 05/31/23 10:08 [facility] (Rec: 05/31/23 10:55 [facility] [id number]) Rehab OT IP Assessment Subjective History Per H&P: Mr. Ruiz is a 77-year-old male with history of Parkinson 's, hypertension, depression, diabetes, hypothyroid. He presented to the ER because of worsening weakness. States he had bilateral leg weakness that is gotten worse since waking up today. Home health nurse saw him and advised him to go to the ER for further evaluation. Denies fever, pain, nausea or vomiting. Recently had UTI with multidrug-resistant bacteria. On evaluation to the ER he states he has been having difficulty walking. Denies any significant pain. Difficulty may have began yesterday but worsened this morning. Denies any fall or trauma. No confusion. Denies syncope, headache, chest pain . Has also been having some burning when he pees and difficulty going to the bathroom. Denies any constipation or diarrhea. Evaluation in the ER concerning for UTI with grossly abnormal urine. He is also weak to the point that he thinks he needs possible placement in rehab. Medicine consulted for treatment of suspected multidrug-resistant UTI and therapy evaluation. Subjective PLOF per pt report: Pt claims he was normally independent with all ADLs. Living with daughter in a single-story home with 4 [address] with no HRs. Cane and RW use. Not driving prior to admission. Required assistance with walking from Rita daughter who works FT. Pt is questionable historian. Objective Patient Orientation Person,Birthday Right Upper Extremity Gross ROM WFL Left Upper Extremity Gross ROM WFL Bed Mobility bed mobility-scooting,bed mobility - supine/sit Assist Level Minimal x 1 (25% assist) Transfer Training Sit/Stand Transfer Assist Level Minimal x 1 (25% assist) Rehab OT IP prob,goals,plan Problems Date of Evaluation: 05/31/23 OT IP Problems Bed Mobility,Transfers,Balance ,Self care,Safety Rehab Potential Rehab Potential Good Equipment Needs Assistive Devices Rolling / Wheeled Walker Plan OT intervention Plan Bed Mobility,Transfers,Balance ,Self care,Safety,Therapeutic Exercise OT Plan Frequency Daily Duration LOS Discharge Goals Bed Mobility Ability Standby Assistance Sit to Stand Chair Transfer Ability Contact Guard/Hand Hold Chair Transfer Ability Contact Guard/Hand Hold Chair Transfer Technique Sit to/from Ambulatory Chair Transfer Assistive Devices Rolling Walker Feeding Ability Assist with Tray Set Up Lower Body Dressing Ability Moderate Assistance Upper Body Dressing Ability Minimal Assistance Bathing Ability Moderate Assistance Performing Toilet Hygiene Ability Moderate Assistance Overall Commode/Toilet Transfer Ability Contact Guard Commode/Toilet Transfer Technique Sit to/from Ambulatory Commode/Toilet Transfer Assistive Grab Bars Devices Oral Care Assist Standby Assistance Decrease in Endurance Yes Discharge Plan OT Discharge Plan Patient presents below baseline at this time in functional mobility, transfers , ADL independence, and strength. Pt not safe to return home at this time d/t current level of functional mobility. OT recommending short-term rehabilitation stay upon d/c from [facility]. If family or pt refusing placement, pt would require 24/7 supervision to maximize safety with mobility at home. Pt would benefit from skilled OT while at [facility] to prevent further functional decline and maximize safety with mobility. Eval Complexity Eval Charge Codes 75461 - Moderate Complexity PHYSICIAN CERTIFICATION: I certify the specified therapy services for Tomas Crocker are required, authorized, and reviewed every 30 days.
[2023-05-31 11:14] LABS: POC Glucose,Bedside 118 (70-110)
[2023-05-31] MEDS: FAMOTIDINE 20MG TABLET 20 MG PO (11:40)
[2023-05-31] MEDS: humaLOG 100 UNITS/ML 3ML VIAL (SSI) SQ (15:50)
[2023-05-31 15:58] LABS: POC Glucose,Bedside 178 (70-110)
[2023-05-31] MEDS: MAGNESIUM SULFATE IN WATER 2 GM/50 ML PIGGYBACK IV (16:12)
--- NOTE | 2023-05-31 18:01 | PC.NURSE ---
A&OX4. TOLERATING RA WELL. UP WITH X1 ASSIST TO THE BATHROOM. PT HAS RESTED IN BED MAJORITY OF SHIFT, HAS HAD SOME VISITORS. AWAITING PLACEMENT FOR SUNDAY. NO NEEDS OR C/O THUS FAR THIS SHIFT. TX WITH INSULIN PER APR X1. VSS.
[2023-05-31 19:52] LABS: POC Glucose,Bedside 149 (70-110)
[2023-05-31] MEDS: ATORVASTATIN 40MG TABLET 40 MG PO (20:28)
[2023-05-31] MEDS: QUETIAPINE 100MG TABLET 100 MG PO (20:30)
[2023-05-31] MEDS: PANTOPRAZOLE 40MG TABLET 40 MG PO (20:30)
[2023-05-31] MEDS: TAMSULOSIN 0.4MG CAPSULE 0.400000000000000022 MG PO (20:30)
[2023-05-31] MEDS: TRAZODONE 50MG TABLET 50 MG PO (20:30)
[2023-06-01 04:00] VITALS: BMI 26.2
--- NOTE | 2023-06-01 05:01 | PC.NURSE ---
pt a&ox4. saturating well on room air. receiving iv abx through picc line. no complaints of pain through the night. bp elevated at beginning of shift, came down with [facility]. bed alarm on .
[2023-06-01] MEDS: MEROPENEM 1 GM in 0.9 % SODIUM CHLORIDE 100 ML IV ×3 (06:08→22:19)
[2023-06-01] MEDS: LEVOTHYROXINE 25MCG (0.025MG) TAB 25 MCG PO (06:08)
[2023-06-01 06:20] LABS: POC Glucose,Bedside 115 (70-110)
[2023-06-01 06:35] LABS: Basophils # 0.1 K/mm3 (0-0.2); Basophils % 0.7 % (0.1-2.0); Eosinophils # 0.3 K/mm3 (0.0-0.4); Lymphocytes # 1.6 K/mm3 (0.7-4.5); Lymphocytes % 22.8 % (10-50); Mean Corpuscular HGB Conc 33.4 g/dL (31.8-35.4); Mean Corpuscular Hemoglobin 30.6 pg (27.0-31.2); Mean Corpuscular Volume 91.6 fl (80-94); Mean Platelet Volume 8.4 fl (7.4-10.4); Monocytes # 0.6 K/mm3 (0.1-1.0); Monocytes % 8.2 % (1.7-9.3); Neutrophils # 4.6 K/mm3 (1.8-7.8); Neutrophils % 64.4 % (37.0-80.0); Platelet Count 232 K/mm3 (142-424); Red Blood Count 3.27 M/mm3 (4.60-6.20); Red Cell Distribution Width 15.4 % (11.5-17.5); White Blood Count 7.1 K/mm3 (4.8-10.8)
[2023-06-01 06:45] LABS: Chloride 102 mmol/L (98-107); Potassium 3.3 mmoL/L (3.5-5.1); Sodium 139 mmol/L (136-145)
[2023-06-01 06:48] LABS: Albumin Level 2.5 g/dl (3.5-5.0); Albumin/Globulin Ratio 0.7 (1.1-1.8); Alkaline Phosphatase 101 U/L (38-126); Anion Gap 4.3 mEq/L (5-15); Aspartate Amino Transferase 28 U/L (17-59); Bilirubin,Total 0.6 mg/dl (0.2-1.3); Blood Urea Nitrogen 9 mg/dl (9-20); Calcium 7.3 mg/dl (8.4-10.2); Carbon Dioxide 36 mmol/L (22.0-30.0); Creatinine Clearance Estimated 60 mL/min (50-200); Estimated Glomerular Filt Rate 54 ml/min (>60); GFR (African American) 65 ML/MIN (>60); Globulin 3.5 g/dL (1.3-3.2); Glucose 119 mg/dl (74-100)
[2023-06-01 07:09] LABS: Magnesium 1.4 mg/dl (1.6-2.3)
--- NOTE | 2023-06-01 07:35 | P.PN_ITS ---
Subjective *Date: 06/01/23 *Time: 07:35 Medical Exam Vital signs and Labs for Last 24 Hours: Vital Signs Temp Pulse Resp BP Pulse Ox O2 Del Method 06/01/23 06:32 Room Air 06/01/23 05:00 Room Air 06/01/23 03:00 Room Air 06/01/23 01:00 Room Air 05/31/23 23:00 Room Air 05/31/23 21:00 Room Air 05/31/23 20:58 144/86 H 05/31/23 20:00 98.9 F 65 18 196/83 H 97 Room Air 05/31/23 19:57 Room Air 05/31/23 18:32 Room Air 05/31/23 17:00 Room Air 05/31/23 16:00 98.6 F 62 20 158/85 H 98 Room Air 05/31/23 14:41 Room Air 05/31/23 13:00 Room Air 05/31/23 12:46 98.6 F 71 19 150/70 H 94 L Room Air 05/31/23 10:57 Room Air 05/31/23 09:00 Room Air 05/31/23 08:00 Room Air 05/31/23 08:00 98.7 F 61 18 155/75 H 98 Room Air Intake and Output 05/31/23 05/31/23 06/01/23 15:59 23:59 07:59 Intake Total 170 / 870 360 / 870 100 / 100 Output Total 650 / 1650 0 / 1650 0 / 0 Balance -480 / -780 360 / -780 100 / 100 Intake: Intake, Oral Amount 170 / 870 360 / 870 100 / 100 Output: Output, Urine Amount 650 / 1650 0 / 1650 0 / 0 Other: Number of Voids 1 Number of Unmeasured Voids 1 1 Weight 87.997 kg Patient Weight 06/01/23 23:59 Weight 87.997 kg Laboratory Results - last 24 hr 05/31/23 06:19: Sodium 139, Potassium 3.1 L, Chloride 103, Carbon Dioxide 37 H, Anion Gap 2.1 L, BUN 10, Creatinine 1.30 H, Estimated Creat Clear 60, Estimated GFR 54 L, Est GFR ( Amer) 65, Glucose 101 H, Hemoglobin A1c 10.0 H, Calcium 7.4 L, Magnesium 1.2 L, Total Bilirubin 0.5, AST 27, ALT 4 L, Alkaline Phosphatase 97, Total Protein 6.0 L, Albumin 2.4 L D, Globulin 3.6 H, Albumin/Globulin Ratio 0.7 L 05/31/23 11:05: POC Glucose 118 H 05/31/23 15:45: POC Glucose 178 H 05/31/23 19:45: POC Glucose 149 H 06/01/23 06:03: POC Glucose 115 H 06/01/23 06:05: WBC 7.1, RBC 3.27 L, Hgb 10.0 L, Hct 30.0 L, MCV 91.6, MCH 30.6, MCHC 33.4, RDW 15.4, Plt Count 232, MPV 8.4, Neut % (Auto) 64.4, Lymph % (Auto) 22.8, [place] % (Auto) 8.2, Eos % (Auto) 4.0, Baso % (Auto) 0.7, Neut # (Auto) 4.6, Lymph # (Auto) 1.6, [place]uyler # (Auto) 0.6, Eos # (Auto) 0.3, Baso # (Auto) 0.1 I & O for Labs for Last 24 Hours: Intake & Output 05/29/23 05/30/23 05/31/23 06/01/23 23:59 23:59 23:59 23:59 Intake Total 1255 / 1255 520 / 760 770 / 870 100 / 100 Output Total 100 / 100 0 / 0 1650 / 1650 0 / 0 Balance 1155 / 1155 520 / 760 -880 / -780 100 / 100 Weight 86.438 kg 86.59 kg 87.997 kg 87.997 kg Microbiology Reports for the Last 24 Hours: Microbiology 05/29/23 12:43 Urine,Clean Catch Urine Culture - Final The patient's infection will respond to the chosen ABx?: Yes (urine culture = mixed zoya, white count 7.1, afebrile over 24 hours) Is the patient receiving the right drug, dose, and route?: Yes Could a more targeted ABx be ordered?: No (history of MDR achromobacter) How long ABx needed (days)?: 7
[2023-06-01 07:59] VITALS: O2SAT 97
[2023-06-01 08:00] VITALS: BP 162/77; PULSE 65; RESP 20; TEMP 37.1; O2SAT 97
[2023-06-01 08:04] LABS: Alanine Aminotransferase < 4 U/L (12-78)
[2023-06-01] MEDS: MAGNESIUM SULFATE IN WATER 2 GM/50 ML PIGGYBACK IV (09:16)
[2023-06-01] MEDS: ASPIRIN 81MG CHEWABLE TABLET 81 MG PO (09:51)
[2023-06-01] MEDS: INSULIN GLARGINE 100 UNITS/ML 3ML FLEXPEN 40 UNIT SQ (09:52)
[2023-06-01] MEDS: IRBESARTAN 150MG TAB 150 MG PO (09:53)
[2023-06-01] MEDS: OXYBUTYNIN 5MG TAB 2.5 MG PO ×2 (09:53→20:22)
[2023-06-01] MEDS: MAGNESIUM OXIDE 400MG TABLET 400 MG PO ×2 (09:53→21:07)
[2023-06-01] MEDS: FAMOTIDINE 20MG TABLET 20 MG PO (09:55)
[2023-06-01] MEDS: CARBIDOPA/LEVODOPA 25/100MG TABLET 1 EACH PO ×4 (09:55→20:22)
[2023-06-01] MEDS: ALLOPURINOL 300MG TABLET 300 MG PO (09:55)
[2023-06-01] MEDS: CARVEDILOL 25MG TABLET 25 MG PO ×2 (09:55→20:22)
[2023-06-01] MEDS: ENOXAPARIN 40MG/0.4ML SYRINGE 40 MG SQ (09:55)
[2023-06-01] MEDS: PARoxetine 20MG TABLET 40 MG PO (09:57)
[2023-06-01 16:00] VITALS: BP 158/54; PULSE 60; RESP 18; TEMP 36.8; O2SAT 98
[2023-06-01] MEDS: humaLOG 100 UNITS/ML 3ML VIAL (SSI) SQ ×2 (16:42→20:22)
[2023-06-01 16:43] LABS: POC Glucose,Bedside 283 (70-110)
--- NOTE | 2023-06-01 16:52 | P.PN_ITS ---
Subjective *Date: 06/01/23 *Time: 16:52 Interval history: No complaints this morning. Stable on room air. Tolerating p.o. intake. Continues to be quite weak. Working with therapy. Medical Exam Vital signs and Labs for Last 24 Hours: Vital Signs Temp Pulse Resp BP Pulse Ox O2 Del Method 06/01/23 16:00 98.3 F 60 18 158/54 H 98 Room Air 06/01/23 15:00 Room Air 06/01/23 13:00 Room Air 06/01/23 11:00 Room Air 06/01/23 08:30 Room Air 06/01/23 08:00 98.8 F 65 20 162/77 H 97 Room Air 06/01/23 07:59 97 Room Air 06/01/23 06:32 Room Air 06/01/23 05:00 Room Air 06/01/23 03:00 Room Air 06/01/23 01:00 Room Air 05/31/23 23:00 Room Air 05/31/23 21:00 Room Air 05/31/23 20:58 144/86 H 05/31/23 20:00 98.9 F 65 18 196/83 H 97 Room Air 05/31/23 19:57 Room Air 05/31/23 18:32 Room Air 05/31/23 17:00 Room Air Intake and Output 06/01/23 06/01/23 06/01/23 07:59 15:59 23:59 Intake Total 100 / 370 270 / 370 Output Total 0 / 0 0 / 0 Balance 100 / 370 270 / 370 Intake: Intake, Oral Amount 100 / 370 270 / 370 Output: Output, Urine Amount 0 / 0 0 / 0 Other: Number of Voids 1 Number of Unmeasured Voids 1 1 Weight 87.997 kg Patient Weight 06/01/23 23:59 Weight 87.997 kg Laboratory Results - last 24 hr 05/31/23 19:45: POC Glucose 149 H 06/01/23 06:03: POC Glucose 115 H 06/01/23 06:05: WBC 7.1, RBC 3.27 L, Hgb 10.0 L, Hct 30.0 L, MCV 91.6, MCH 30.6, MCHC 33.4, RDW 15.4, Plt Count 232, MPV 8.4, Neut % (Auto) 64.4, Lymph % (Auto) 22.8, [place] % (Auto) 8.2, Eos % (Auto) 4.0, Baso % (Auto) 0.7, Neut # (Auto) 4.6, Lymph # (Auto) 1.6, [place] # (Auto) 0.6, Eos # (Auto) 0.3, Baso # (Auto) 0.1, Sodium 139, Potassium 3.3 L, Chloride 102, Carbon Dioxide 36 H, Anion Gap 4.3 L, BUN 9, Creatinine 1.30 H, Estimated Creat Clear 60, Estimated GFR 54 L, Est GFR ( Amer) 65, Glucose 119 H, Calcium 7.3 L, Magnesium 1.4 L D, Total Bilirubin 0.6, AST 28, ALT < 4 L, Alkaline Phosphatase 101, Total Protein 6.0 L, Albumin 2.5 L, Globulin 3.5 H, Albumin/Globulin Ratio 0.7 L 06/01/23 16:35: POC Glucose 283 H I & O for Labs for Last 24 Hours: Intake & Output 05/29/23 05/30/23 05/31/23 06/01/23 23:59 23:59 23:59 23:59 Intake Total 1255 / 1255 520 / 760 770 / 870 370 / 370 Output Total 100 / 100 0 / 0 1650 / 1650 0 / 0 Balance 1155 / 1155 520 / 760 -880 / -780 370 / 370 Weight 86.438 kg 86.59 kg 87.997 kg 87.997 kg Constitutional: Present no acute distress, average body habitus and chronically ill appearing Head: Present atraumatic and normocephalic ENT: Present normal exam Neck: Present normal inspection Respiratory: Present normal respiratory effort; Absent rhonchi, wheezes or c rackles Cardiac: Present Reg Rate and Rhythm GI: Present soft and normal bowel sounds; Absent distention or tenderness Extremities: Present normal inspection and full ROM Skin: Present intact; Absent erythema Neuro: Present Grossly Intact, alert, awake, oriented x 3 and moves all extremities Assessment and Plan *Assessment and plan (1) UTI (urinary tract infection): Status: Acute Category: Medical Code(s): N39.0 - Urinary tract infection, site not specified (2) HLD (hyperlipidemia): Status: Acute Category: Medical Code(s): E78.5 - Hyperlipidemia, unspecified (3) HTN (hypertension): Status: Acute Category: Medical Code(s): I10 - Essential (primary) hypertension (4) Hypothyroidism: Status: Chronic Category: Medical Code(s): E03.9 - Hypothyroidism, unspecified (5) Diabetes mellitus: Status: Chronic Category: Medical Code(s): E11.9 - Type 2 diabetes mellitus without complications (6) Balance problem: Status: Acute Category: Medical Code(s): R26.89 - Other abnormalities of gait and mobility (7) Type 2 diabetes mellitus with diabetic neuropathy, with long-term current use of insulin: Status: Chronic Category: Medical Code(s): E11.40 - Type 2 diabetes mellitus with diabetic neuropathy, unspecified; Z79.4 - custodial (current) use of insulin (8) Parkinson disease: Status: Chronic Category: Medical Code(s): G20 - Parkinson's disease Plan 77-year-old male with history of Parkinson's who presented to the ER with weakness. Concern for UTI. Previous cultures show multidrug-resistant organism. Discussed case with ER, request admission for IV antibiotics, therapy eval, possible placement. Medicine agreed to admit for further management. Patient hemodynamically stable on arrival to the floor. Tolerating p.o. intake. Had low glucose but was asymptomatic. Improving with p.o. repletion. Glucose stable today. White cell count normalized. Therapy recommends placement. Case management assisting. Continues to require inpatient management. Anticipate discharge tomorrow to rehab. Problems addressed as follows: UTI Multidrug resistant bacterial infection (achromobacter) Jaymie disturbances -Urine grossly abnormal with leuk esterase and nitrate. Recent culture with resistant pathogen sensitive only to imipenem and meropenem. Continue meropenem 1 g every 8 hours for total of 7 days. Last dose on 06/04. - Repeat urine culture with 25-50,000 CFU's. Pending speciation and sensitivity -PICC line placed 05/29. - White cell count normal at 7.1. Hemoglobin 10.0. Platelets 232. Potassium 3.3 and magnesium 1.4. Replacing oral today. - Repeat CBC, CMP, magnesium ordered for the morning. Parkinson's: Complicates all aspects of his care. Continue home carbidopa/levodopa 1 tab 4 times a day PT/OT evaluated, would benefit from placement for therapy Continue allopurinol 300 mg daily for gout Continue Lipitor 40 mg nightly for hyperlipidemia Continue gabapentin 400 mg twice daily as needed for neuropathy Type 2 diabetes: Continue Lantus, increase to 50 units every morning. Sliding scale insulin as needed ACHS. Fingerstick glucose ACHS. Glucose 119 this morning A1c 10 Continue levothyroxine 25 mcg daily Continue losartan 100 mg for hypertension Continue Paxil 40 mg daily, Seroquel 100 mg nightly, trazodone 50 mg nightly for sleep and mood Continue tamsulosin 0.1 g nightly for BPH Continue carvedilol 5 mg twice daily for hypertension Full code Diabetic diet
--- NOTE | 2023-06-01 17:41 | PC.NURSE ---
patient is alert and oriented x4, VSS. Fluids d/c per MD. PICC in [facility] was flushed and the dressing is clean and dry. Still receiving IV abx. call light in reach.
[2023-06-01 19:48] VITALS: BP 193/70; PULSE 68; RESP 17; TEMP 36.9; O2SAT 99
[2023-06-01 20:07] LABS: POC Glucose,Bedside 265 (70-110)
[2023-06-01] MEDS: QUETIAPINE 100MG TABLET 100 MG PO (20:22)
[2023-06-01] MEDS: TRAZODONE 50MG TABLET 50 MG PO (20:22)
[2023-06-01] MEDS: PANTOPRAZOLE 40MG TABLET 40 MG PO (20:22)
[2023-06-01] MEDS: ATORVASTATIN 40MG TABLET 40 MG PO (20:22)
[2023-06-01] MEDS: TAMSULOSIN 0.4MG CAPSULE 0.400000000000000022 MG PO (20:22)
[2023-06-01 22:50] VITALS: BP 149/80
[2023-06-02 04:00] VITALS: BP 165/78; PULSE 62; RESP 17; TEMP 36.7; O2SAT 96; BMI 25.7
--- NOTE | 2023-06-02 05:23 | PC.NURSE ---
pt a&ox4. picc line to [facility], flushed and drsg c/d/i. receiving iv abx. bed alarm on
[2023-06-02] MEDS: LEVOTHYROXINE 25MCG (0.025MG) TAB 25 MCG PO (06:18)
[2023-06-02 06:27] LABS: POC Glucose,Bedside 120 (70-110)
--- NOTE | 2023-06-02 06:54 | P.DS_ITS ---
General Admission date:: 05/30/23 Discharge date: 06/02/23 HPI HPI HPI: Mr. Crocker is a 77-year-old male with history of Parkinson's, hypertension, depression, diabetes, hypothyroid. He presented to the ER because of worsening weakness. States he had bilateral leg weakness that is gotten worse since waking up today. Home health nurse saw him and advised him to go to the ER for further evaluation. Denies fever, pain, nausea or vomiting. Recently had UTI with multidrug-resistant bacteria. On evaluation to the ER he states he has been having difficulty walking. Denies any significant pain. Difficulty may have began yesterday but worsened this morning. Denies any fall or trauma. No confusion. Denies syncope, headache, chest pain. Has also been having some burning when he pees and difficulty going to the bathroom. Denies any constipation or diarrhea. Evaluation in the ER concerning for UTI with grossly abnormal urine. He is also weak to the point that he thinks he needs possible placement in rehab. Medicine consulted for treatment of suspected multidrug- resistant UTI and therapy evaluation. Upon arriving to the floor, patient's blood sugar noted to be low. Responded to juice and p.o. intake. Reports taking his insulin (glargine) this morning. Otherwise feels well. Is alert and oriented x 3. On room air. Hospital Course Hospital Course Hospital Course: 77-year-old male with history of Parkinson's who presented to the ER with weakness. Concern for UTI. Previous cultures show multidrug-resistant organism. Discussed case with ER, request admission for IV antibiotics, therapy eval, possible placement. Medicine agreed to admit for further management. Patient hemodynamically stable on arrival to the floor. Tolerating p.o. intake. Had low glucose but was asymptomatic. Improving with p.o. repletion. Glucose stable today. White cell count normalized. Therapy recommends placement. Case management assisting. Accepted by [facility]. Anticipate discharge today to rehab for therapy and to complete IV antibiotics. Stable to discharge. Problems addressed as follows: UTI Multidrug resistant bacterial infection (achromobacter) Electrolyte disturbances -Presentation with weakness. Urine obtained that was grossly abnormal with leuk esterase and nitrate. Recent culture with resistant pathogen sensitive only to imipenem and meropenem. Initiated empirically on meropenem 1 g every 8 hours. Will complete a total of 7 days. Last dose due the evening of 06/04. Repeat urine culture still pending. PICC line was placed on 05/29. Okay to remove PICC line after last dose of medication. Patient's labs on day of discharge showed normal white count 7.2. Hemoglobin 9.5 (chronic anemia). Electrolytes stable. Parkinson's: Complicates all aspects of his care. Continue home carbidopa/levodopa 1 tab 4 times a day. PT/OT evaluated, would benefit from placement for therapy Continue allopurinol 300 mg daily for gout Continue Lipitor 40 mg nightly for hyperlipidemia Continue gabapentin 400 mg twice daily as needed for neuropathy Type 2 diabetes: Continue Lantus 50 units every morning. Received sliding scale insulin in the evenings. Would recommend short acting insulin 10 units with dinner nightly. A1c of 10. Will need repeat A1c in 3 months. Recommend monitoring fingerstick glucose in the morning and the evening. Will need monitoring for adjustment of short acting insulin. Continue levothyroxine 25 mcg daily Continue losartan 100 mg for hypertension Continue Paxil 40 mg daily, Seroquel 100 mg nightly, trazodone 50 mg nightly for sleep and mood Continue tamsulosin 0.1 g nightly for BPH Continue carvedilol 5 mg twice daily for hypertension Patient did not utilize or request his gabapentin or hydrocodone during admission. Has not had these medications in over 3 days. They were not sent at time of discharge. Exam Data for Last 24 hours Vital signs and Labs for Last 24 Hours: Temp Pulse Resp BP Pulse Ox O2 Del Method 98.1 F 62 17 165/78 H 96 Room Air 06/02/23 04:00 06/02/23 04:00 06/02/23 04:00 06/02/23 04:00 06/02/23 04:00 06/02/23 06:47 Laboratory Results - last 24 hr 06/01/23 06:05: Sodium 139, Potassium 3.3 L, Chloride 102, Carbon Dioxide 36 H, Anion Gap 4.3 L, BUN 9, Creatinine 1.30 H, Estimated Creat Clear 60, Estimated GFR 54 L, Est GFR ( Amer) 65, Glucose 119 H, Calcium 7.3 L, Magnesium 1.4 L D, Total Bilirubin 0.6, AST 28, ALT < 4 L, Alkaline Phosphatase 101, Total Protein 6.0 L, Albumin 2.5 L, Globulin 3.5 H, Albumin/Globulin Ratio 0.7 L 06/01/23 16:35: POC Glucose 283 H 06/01/23 20:00: POC Glucose 265 H 06/02/23 06:16: POC Glucose 120 H I & O for Last 24 hours: Intake & Output 05/30/23 05/31/23 06/01/23 06/02/23 23:59 23:59 23:59 23:59 Intake Total 520 / 760 770 / 870 610 / 810 200 / 200 Output Total 0 / 0 1650 / 1650 0 / 0 0 / 0 Balance 520 / 760 -880 / -780 610 / 810 200 / 200 Weight 86.59 kg 87.997 kg 87.997 kg 86.183 kg Constitutional Constitutional: no acute distress, average body habitus, chronically ill appearing and cooperative *Routine HEENT Exam Head: Present normocephalic Eye: Present EOMI and PERRL ENT: Present mucous membranes moist *Routine Neck Exam Neck: Present supple; Absent lymphadenopathy *Routine Respiratory Exam Respiratory: Present CTA bilaterally; Absent rhonchi, wheezes or crackles *Routine Cardiovascular Exam Cardiovascular: Present RRR *Routine Abdominal Exam Abdominal: Present soft and normoactive bowel sounds; Absent tenderness *Routine Rectal Exam Patient deferred: visual exam *Routine Exam Patient deferred: penile exam *Routine Extremities Exam Extremities: Absent cyanosis, clubbing or edema *Routine Skin Exam Skin: Present warm; Absent rash *Routine Neurological Exam Neurological: Present alert, oriented X3, moving all extremities and tremors; Absent altered mental status Comments: Generalized weakness in legs. Results Data Completed and Pending Labs on day of discharge: Labs from last 24 hours 06/02/23 06/01/23 06/01/23 06:16 20:00 16:35 Sodium Potassium Chloride Carbon Dioxide Anion Gap BUN Creatinine Estimated Creat Clear Estimated GFR Est GFR ( Amer) Glucose POC Glucose 120 H 265 H 283 H Calcium Magnesium Total Bilirubin AST ALT Alkaline Phosphatase Total Protein Albumin Globulin Albumin/Globulin Ratio 06/01/23 06:05 Sodium 139 Potassium 3.3 L Chloride 102 Carbon Dioxide 36 H Anion Gap 4.3 L BUN 9 Creatinine 1.30 H Estimated Creat Clear 60 Estimated GFR 54 L Est GFR ( Amer) 65 Glucose 119 H POC Glucose Calcium 7.3 L Magnesium 1.4 L D Total Bilirubin 0.6 AST 28 ALT < 4 L Alkaline Phosphatase 101 Total Protein 6.0 L Albumin 2.5 L Globulin 3.5 H Albumin/Globulin Ratio 0.7 L DS: Diagnosis Discharge Diagnosis (1) UTI (urinary tract infection): Status: Acute Code(s): N39.0 - Urinary tract infection, site not specified (2) HLD (hyperlipidemia): Status: Acute Code(s): E78.5 - Hyperlipidemia, unspecified (3) HTN (hypertension): Status: Acute Code(s): I10 - Essential (primary) hypertension (4) Hypothyroidism: Status: Chronic Code(s): E03.9 - Hypothyroidism, unspecified (5) Diabetes mellitus: Status: Chronic Code(s): E11.9 - Type 2 diabetes mellitus without complications (6) Balance problem: Status: Acute Code(s): R26.89 - Other abnormalities of gait and mobility (7) Type 2 diabetes mellitus with diabetic neuropathy, with long-term current use of insulin: Status: Chronic Code(s): E11.40 - Type 2 diabetes mellitus with diabetic neuropathy, unspecified; Z79.4 - long term acute care registered nurse (current) use of insulin (8) Parkinson disease: Status: Chronic Code(s): G20 - Parkinson's disease Meds Home Medications and Allergies Home Medications Medication Instructions Recorded Confirmed Type atorvastatin 40 mg tablet 40 mg PO HS 04/22/23 05/29/23 History losartan 100 mg tablet 100 mg PO DAILY 04/22/23 05/29/23 History paroxetine HCl 40 mg tablet 40 mg PO DAILY 04/22/23 05/29/23 History aspirin 81 mg chewable tablet 81 mg PO DAILY 05/08/23 05/29/23 History omeprazole 20 mg capsule,delayed 20 mg PO DAILY 05/08/23 05/29/23 History release oxybutynin chloride 5 mg 5 mg PO DAILY 05/08/23 05/29/23 History tablet,extended release 24 hr tamsulosin 0.4 mg capsule 0.4 mg PO DAILY 05/08/23 05/29/23 History allopurinol 300 mg tablet 300 mg PO DAILY 05/29/23 05/29/23 History carvedilol 25 mg tablet 25 mg PO BID 05/29/23 05/29/23 History levothyroxine 25 mcg tablet 25 mcg PO DAILY 05/29/23 05/29/23 History quetiapine 100 mg tablet 100 mg PO HS 05/29/23 05/29/23 History trazodone 50 mg tablet 50 mg PO HS 05/29/23 05/29/23 History Meropenem [Meropenem 1gm Vial] 1 gm 100 mls/hr IV Q8H 06/02/23 Rx carbidopa 25 mg-levodopa 100 mg 1 tab PO QID 30 days #120 tabs 06/02/23 Rx tablet insulin aspart U-100 100 unit/mL See Rx Instructions .Route 06/02/23 Rx (3 mL) subcutaneous pen (Novolog .COMPLEX 30 days #15 mL FlexPen U-100 Insulin aspart) insulin glargine 100 unit/mL (3 50 unit (0.5 mL) SQ DAILY 30 days 06/02/23 Rx mL) subcutaneous pen (Lantus #15 mL Solostar U-100 Insulin) magnesium oxide 400 mg (241.3 mg 400 mg PO DAILY 30 days #30 tabs 06/02/23 Rx magnesium) tablet New Prescriptions to Start Prescriptions: carbidopa-levodopa Frederick Chinchilla insulin aspart U-100 [Novolog FlexPen U-100 Insulin] Frederick Chinchilla insulin glargine [Lantus Solostar U-100 Insulin] Frederick Chinchilla magnesium oxide Frederick Chinchilla Meropenem [Meropenem 1gm Vial] 1 gm 0.9 % Sodium Chloride [Sod Chloride 0.9% MB+ 100mL] 100 ml 100 mls/hr IV Q8H Allergies Allergy/AdvReac Type Severity Reaction Status Date / Time No Known Allergies Allergy Verified 03/06/23 14:00 Discharge Plan Disposition Patient Disposition: Xfer SNF Condition: Fair Follow up Plan Follow up with: Chantel Ruggiero PA [Primary Care Provider] - 06/07/23 11:00 am Prescriptions/Medication Reconciliation: New magnesium oxide 400 mg (241.3 mg magnesium) Tablet 400 mg PO DAILY 30 Days Qty: 30 0RF Meropenem [Meropenem 1gm Vial] 1 GM 0.9 % Sodium Chloride [Sod Chloride 0.9% MB+ 100mL] 100 ML 100 mls/hr IV Q8H Ordered By: Frederick Chinchilla MD Last Taken: 06/01/23 22:19 100 mls/hr Continued atorvastatin 40 mg tablet 40 mg PO HS paroxetine HCl 40 mg tablet 40 mg PO DAILY losartan 100 mg tablet 100 mg PO DAILY omeprazole 20 mg capsule,delayed release(DR/EC) 20 mg PO DAILY tamsulosin 0.4 mg capsule 0.4 mg PO DAILY oxybutynin chloride 5 mg tablet extended release 24hr 5 mg PO DAILY aspirin 81 mg tablet,chewable 81 mg PO DAILY allopurinol 300 mg tablet 300 mg PO DAILY carvedilol 25 mg tablet 25 mg PO BID trazodone 50 mg tablet 50 mg PO HS quetiapine 100 mg tablet 100 mg PO HS levothyroxine 25 mcg tablet 25 mcg PO DAILY carbidopa-levodopa 25-100 mg tablet 1 tab PO QID 30 Days Qty: 120 0RF Changed insulin aspart U-100 [Novolog FlexPen U-100 Insulin] 100 unit/mL (3 mL) insulin pen See Rx Instructions .ROUTE .COMPLEX 30 Days Qty: 15 0RF Rx Instructions: 10 unit subcutaneously with dinner insulin glargine [Lantus Solostar U-100 Insulin] 100 unit/mL (3 mL) insulin pen 50 unit SQ DAILY 30 Days Qty: 15 0RF Discontinued hydrocodone-acetaminophen 5-325 mg tablet 1 tab PO BIDP PRN (Reason: pain) gabapentin 400 mg capsule 400 mg PO BIDP PRN (Reason: NEUROPATHY) Problem Reconciliation Problems Reviewed?: Yes Patient Discharge Instructions ACTIVITY: Continue current activity DIET: continue same diet Patient Instructions: DI for Urinary Tract Infection (UTI) Providers Primary Care Provider: Chantel Ruggiero Admit Provider: Frederick Chinchilla Attending Provider: Frederick Chinchilla
[2023-06-02 06:57] LABS: Basophils # 0.1 K/mm3 (0-0.2); Basophils % 0.9 % (0.1-2.0); Eosinophils # 0.3 K/mm3 (0.0-0.4); Eosinophils % 3.9 % (0.1-12.0); Hematocrit 28.9 % (42.0-52.0); Hemoglobin 9.5 g/dL (14.1-18.0); Lymphocytes # 1.9 K/mm3 (0.7-4.5); Lymphocytes % 26.7 % (10-50); Mean Corpuscular Hemoglobin 29.8 pg (27.0-31.2); Mean Corpuscular Volume 90.4 fl (80-94); Mean Platelet Volume 7.8 fl (7.4-10.4); Monocytes # 0.6 K/mm3 (0.1-1.0); Monocytes % 8.9 % (1.7-9.3); Neutrophils # 4.3 K/mm3 (1.8-7.8); Neutrophils % 59.6 % (37.0-80.0); Platelet Count 262 K/mm3 (142-424); Red Cell Distribution Width 15.2 % (11.5-17.5); White Blood Count 7.2 K/mm3 (4.8-10.8)
[2023-06-02 06:59] LABS: Chloride 102 mmol/L (98-107); Potassium 3.4 mmoL/L (3.5-5.1); Sodium 139 mmol/L (136-145)
[2023-06-02 07:01] LABS: Alanine Aminotransferase 5 U/L (12-78); Aspartate Amino Transferase 29 U/L (17-59); Blood Urea Nitrogen 10 mg/dl (9-20); Creatinine Clearance Estimated 59 mL/min (50-200); Estimated Glomerular Filt Rate 54 ml/min (>60); GFR (African American) 65 ML/MIN (>60)
[2023-06-02 07:02] LABS: Albumin Level 2.4 g/dl (3.5-5.0); Albumin/Globulin Ratio 0.7 (1.1-1.8); Alkaline Phosphatase 99 U/L (38-126); Anion Gap 2.4 mEq/L (5-15); Bilirubin,Total 0.6 mg/dl (0.2-1.3); Calcium 7.6 mg/dl (8.4-10.2); Carbon Dioxide 38 mmol/L (22.0-30.0); Globulin 3.5 g/dL (1.3-3.2); Glucose 119 mg/dl (74-100); Total Protein,Serum 5.9 g/dl (6.3-8.2)
--- NOTE | 2023-06-02 07:10 | PC.NURSE ---
passed it on to dayshift nurse that the abx merepenum was not in stock in hospital. wasn't able to be given at 0600.
[2023-06-02 07:47] LABS: Magnesium 1.6 mg/dl (1.6-2.3)
[2023-06-02 08:00] VITALS: BP 102/78; PULSE 63; RESP 20; TEMP 36.9; O2SAT 97
[2023-06-02] MEDS: MEROPENEM 1 GM in 0.9 % SODIUM CHLORIDE 100 ML IV (08:57)
[2023-06-02] MEDS: INSULIN GLARGINE 100 UNITS/ML 3ML FLEXPEN 50 UNIT SQ (08:58)
[2023-06-02] MEDS: MAGNESIUM OXIDE 400MG TABLET 400 MG PO (08:59)
[2023-06-02] MEDS: ALLOPURINOL 300MG TABLET 300 MG PO (08:59)
[2023-06-02] MEDS: PARoxetine 20MG TABLET 40 MG PO (08:59)
[2023-06-02] MEDS: OXYBUTYNIN 5MG TAB 2.5 MG PO (08:59)
[2023-06-02] MEDS: CARBIDOPA/LEVODOPA 25/100MG TABLET 1 EACH PO (08:59)
[2023-06-02] MEDS: ENOXAPARIN 40MG/0.4ML SYRINGE 40 MG SQ (08:59)
[2023-06-02] MEDS: FAMOTIDINE 20MG TABLET 20 MG PO (09:00)
[2023-06-02] MEDS: IRBESARTAN 150MG TAB 150 MG PO (09:00)
[2023-06-02] MEDS: CARVEDILOL 25MG TABLET 25 MG PO (09:00)
[2023-06-02] MEDS: ASPIRIN 81MG CHEWABLE TABLET 81 MG PO (09:00)
[2023-06-02 11:10] LABS: POC Glucose,Bedside 136 (70-110)
== END 2023-06-02 12:26 | DRG 690 ==
LOC: ER 11:57 → 2ND 14:46
PROVIDERS: Nurse Practitioner Family; Admitting Provider Internal Medicine Adolescent Medicine; Emergency Provider Emergency Medicine; PCP Physician Assistant; Visit Provider Internal Medicine Adolescent Medicine
DX: N39.0 Urinary tract infection, site not specified (principal); Z16.24 Resistance to multiple antibiotics; E78.5 Hyperlipidemia, unspecified; E03.9 Hypothyroidism, unspecified; E11.40 Type 2 diabetes mellitus with diabetic neuropathy, unspecified; Z79.4 Long term (current) use of insulin; E87.6 Hypokalemia; K21.9 Gastro-esophageal reflux disease without esophagitis; I12.9 Hypertensive chronic kidney disease with stage 1 through stage 4 chronic kidney disease, or unspecified chronic kidney disease; N18.9 Chronic kidney disease, unspecified; E11.22 Type 2 diabetes mellitus with diabetic chronic kidney disease; G20.A1 Parkinson's disease without dyskinesia, without mention of fluctuations; E83.42 Hypomagnesemia
CPT/HCPCS: 36415; 36569; 71045; 80053; 81001; 82009; 82803; 82947; 82962; 83036; 83735; 83930; 84132; 85025; 87086; 97116; 97162; 97166; 97530; 99285; C1751; G0378; J2185; J3475

== ENCOUNTER → 2023-06-07 11:28 | Outpatient (REF) | payer MEDICARE, OTHER, SELFPAY ==
--- OUTSIDE RECORDS SUMMARY | 2023-06-07 11:31 | XMS_ITS | Continuity of Care Document ---
Author Name Unknown Organization [facility] Address [address] [place] [address] Phone Care Team Providers Care Agricultural Education Teacher Name Role Phone Erasmo Lizama MD Unavailable [...] Diagnoses Date Provider Providers Copied on Encounter [facility] , [address] [facility] [address], [place], [address], [place] tel:[phone] [facility] No Information 4 Alda Zimmerman. [address] [place] [address], [address]. tel: [phone] [facility] , [address] [place] [address], [facility], tel:[phone] [facility] diabetes (chief complaint) Cataract (chief complaint) Diabetes with ophthalmic manifestations, type II or unspecified type, uncontrolledMild nonproliferative diabetic retinopathySenile nuclear sclerosisVitreous degenerationMacul ar puckering of retina 4 Alda Zimmerman. [address] [place] [address], [address]. tel: [phone] [facility] , [address] [place] [address], [facility], tel:[phone] [facility] Diabetes Mellitus, Adult Onset, UncontrolledSenil e nuclear sclerosisVitreous degeneration 3 Alda Zimmerman. [address] [place] [address], [address]. tel: [phone] [facility] , [address] [place] [address], [facility], [place] tel:[phone] [facility] No Information 1 Alda Zimmerman. [address] [place] [address], [address]. tel: [phone] Referring Provider: MELLISA Joe, [address] [place] [address] [address], [place], [address]. tel:[phone] Family History Family Member Type Diagnosis Age [...]
--- OUTSIDE RECORDS SUMMARY | 2023-06-07 11:31 | XMS_ITS | Clinical Summary ---
Author Name Unknown Address [address] [place] [address] Phone Organization [facility] Address [address] [place] [address] Phone Care Team Providers Care Direct Support Worker Name Role Phone Unavailable Unavailable Conditions or Problems No information available. Medications No information available. Medications Administered No information available. Allergies, Adverse Reactions, Alerts No information available. Results No information available. Plan of Care No information available. Procedures No information available. Vital Signs No information available. Immunizations No information available. Advance Directives No information available.
[2023-06-07 12:12] LABS: Basophils % 0.6 % (0.1-2.0); Eosinophils # 0.4 K/mm3 (0.0-0.4); Eosinophils % 5.1 % (0.1-12.0); Hematocrit 30.6 % (42.0-52.0); Hemoglobin 10.1 g/dL (14.1-18.0); Lymphocytes # 1.7 K/mm3 (0.7-4.5); Lymphocytes % 24.9 % (10-50); Mean Corpuscular Hemoglobin 30.6 pg (27.0-31.2); Mean Corpuscular Volume 92.8 fl (80-94); Monocytes # 0.5 K/mm3 (0.1-1.0); Monocytes % 7.2 % (1.7-9.3); Neutrophils # 4.2 K/mm3 (1.8-7.8); Neutrophils % 62.3 % (37.0-80.0); Platelet Count 262 K/mm3 (142-424); Red Blood Count 3.29 M/mm3 (4.60-6.20); Red Cell Distribution Width 15.3 % (11.5-17.5); White Blood Count 6.8 K/mm3 (4.8-10.8)
[2023-06-07 16:28] LABS: Anion Gap 7.1 mEq/L (5-15); Blood Urea Nitrogen 10 mg/dl (9-20); Calcium 8.2 mg/dl (8.4-10.2); Carbon Dioxide 33 mmol/L (22.0-30.0); Chloride 104 mmol/L (98-107); Estimated Glomerular Filt Rate 54 ml/min (>60); GFR (African American) 65 ML/MIN (>60); Glucose 149 mg/dl (74-100); Potassium 4.1 mmoL/L (3.5-5.1); Sodium 140 mmol/L (136-145)
== END ==
LOC: LAB.DROPOF 11:28
PROVIDERS: Visit Provider Internal Medicine Adolescent Medicine
DX: E11.40 Type 2 diabetes mellitus with diabetic neuropathy, unspecified (principal); Z79.4 Long term (current) use of insulin
CPT/HCPCS: 80048; 85025

== ENCOUNTER 2023-06-18 11:19 | Outpatient (CLI) | payer MEDICARE, OTHER, SELFPAY ==
--- OUTSIDE RECORDS SUMMARY | 2023-06-18 11:22 | XMS_ITS | Clinical Summary ---
Author Name Unknown Address [address] [place] [address] Phone Organization [facility] Address [address] [place] [address] Phone Care Team Providers Care Supervisor Audit Clerks Name Role Phone Unavailable Unavailable Conditions or Problems No information available. Medications No information available. Medications Administered No information available. Allergies, Adverse Reactions, Alerts No information available. Results No information available. Plan of Care No information available. Procedures No information available. Vital Signs No information available. Immunizations No information available. Advance Directives No information available.
--- OUTSIDE RECORDS SUMMARY | 2023-06-18 11:22 | XMS_ITS | Continuity of Care Document ---
Author Name Unknown Organization [facility] Address [address] [place] [address] Phone Care Team Providers Care Charge Hand Name Role Phone Erasmo Lizama MD Unavailable [...] Diagnoses Date Provider Providers Copied on Encounter [facility] , [address], [place], [address], [place] tel:[phone] [facility] No Information 4 Alda Zimmerman. [address] [place] [address], [address]. tel: [phone] [facility] , [address] [place] [address], [facility], tel:[phone] [place] diabetes (chief complaint) Cataract (chief complaint) Diabetes with ophthalmic manifestations, type II or unspecified type, uncontrolledMild nonproliferative diabetic retinopathySenile nuclear sclerosisVitreous degenerationMacul ar puckering of retina 4 Alda Zimmerman. [address] [place] [address], [address]. tel: [phone] [facility] , [address] [place] [address], [facility], tel:[phone] [facility] Diabetes Mellitus, Adult Onset, UncontrolledSenil e nuclear sclerosisVitreous degeneration 3 Alda Zimmerman. [address] [place] [address], [address]. tel: [phone] [facility] , [address] [place] [address], [facility], [place] tel:[phone] [facility] No Information 1 Alda Zimmerman. [address] [place] [address], [address]. tel: [phone] Referring Provider: MELLISA Joe, [address] [place] [address] [address], [place], [address]. tel:[phone] Family History Family Member Type Diagnosis Age At Onset No Information Payers Payer name Insurance type Covered libertarian ID Authoriza tion(s) No Information Social History [...] Instructions Date Instruction Additional George gomez - Return in 1 year w [facility] [...] Related to Mild nonproliferative diabetic retinopathy - Discussed with daniela cruz; will continue [...]
== END 2023-06-18 23:59 | disposition home or self-care (01) ==
LOC: LAB 11:20
PROVIDERS: PCP Physician Assistant; Visit Provider Nurse Practitioner Family
DX: R78.81 Bacteremia (principal)
CPT/HCPCS: 36415; 87040

== ENCOUNTER 2023-06-23 11:38 | Observation (INO) | payer MEDICARE, OTHER, SELFPAY ==
[2023-06-23] VITALS (12 sets, daily range): BP systolic 104–181; BP diastolic 60–75; PULSE 61–74; RESP 16–24; TEMP 36.5–37.3; O2SAT 94–98; BMI 26.3; BMI 24.4
--- OUTSIDE RECORDS SUMMARY | 2023-06-23 11:56 | XMS_ITS | Clinical Summary ---
Author Name Unknown Address [address] [place] [address] Phone Organization [facility] Address [address] [place] [address] Phone Care Team Providers Care Drywall Sander Name Role Phone Unavailable Unavailable Conditions or Problems No information available. Medications No information available. Medications Administered No information available. Allergies, Adverse Reactions, Alerts No information available. Results No information available. Plan of Care No information available. Procedures No information available. Vital Signs No information available. Immunizations No information available. Advance Directives No information available.
--- OUTSIDE RECORDS SUMMARY | 2023-06-23 11:56 | XMS_ITS | Continuity of Care Document ---
Author Name Unknown Organization [facility] Address [address] [place] [address] Phone Care Team Providers Care Legal Researcher Name Role Phone Erasmo Lizama MD Unavailable [...] Diagnoses Date Provider Providers Copied on Encounter [facility] , [address] [facility], [place], [address], [place] tel:[phone] [facility] No Information 4 Alda Zimmerman. [address] [place] [address], [address]. tel: [phone] [facility] , [address] [place] [address], [facility], tel:[phone] [place] [facility] diabetes (chief complaint) Cataract (chief complaint) Diabetes with ophthalmic manifestations, type II or unspecified type, uncontrolledMild nonproliferative diabetic retinopathySenile nuclear sclerosisVitreous degenerationMacul ar puckering of retina 4 Alda Zimmerman. [address] [place] [address], [address]. tel: [phone] [facility] , [address] [place] [address], [facility], tel:[phone] [facility] Diabetes Mellitus, Adult Onset, UncontrolledSenil e nuclear sclerosisVitreous degeneration 3 Alda Zimmerman. [address] [place] [address], [address]. tel: [phone] [facility] , [address] [place] [address], [facility], [place] tel:[phone] [facility] No Information 1 Alda Zimmerman. [address] [place] [address], [address]. tel: [phone] Referring Provider: MELLISA Joe, [address] [place] [address] [address], [place], [address]. tel:[phone] Family History Family Member Type Diagnosis Age [...]
[2023-06-23 12:11] LABS: Basophils # 0.1 K/mm3 (0-0.2); Basophils % 0.7 % (0.1-2.0); Eosinophils # 0.6 K/mm3 (0.0-0.4); Eosinophils % 6.7 % (0.1-12.0); Hematocrit 34.9 % (42.0-52.0); Lymphocytes % 20.4 % (10-50); Mean Corpuscular HGB Conc 31.5 g/dL (31.8-35.4); Mean Corpuscular Hemoglobin 29.2 pg (27.0-31.2); Mean Corpuscular Volume 92.5 fl (80-94); Mean Platelet Volume 8.6 fl (7.4-10.4); Monocytes # 0.7 K/mm3 (0.1-1.0); Monocytes % 7.5 % (1.7-9.3); Neutrophils # 6.2 K/mm3 (1.8-7.8); Neutrophils % 64.7 % (37.0-80.0); Platelet Count 227 K/mm3 (142-424); Red Blood Count 3.77 M/mm3 (4.60-6.20); Red Cell Distribution Width 15.6 % (11.5-17.5); White Blood Count 9.6 K/mm3 (4.8-10.8)
[2023-06-23 12:12] LABS: Chloride 98 mmol/L (98-107); Potassium 4.5 mmoL/L (3.5-5.1); Sodium 133 mmol/L (136-145)
[2023-06-23 12:15] LABS: Alanine Aminotransferase 15 U/L (12-78); Albumin Level 3.2 g/dl (3.5-5.0); Albumin/Globulin Ratio 0.7 (1.1-1.8); Alkaline Phosphatase 142 U/L (38-126); Anion Gap 9.5 mEq/L (5-15); Aspartate Amino Transferase 40 U/L (17-59); Bilirubin,Total 0.7 mg/dl (0.2-1.3); Blood Urea Nitrogen 26 mg/dl (9-20); Calcium 8.4 mg/dl (8.4-10.2); Carbon Dioxide 30 mmol/L (22.0-30.0); Creatinine Clearance Estimated 43 mL/min (50-200); Estimated Glomerular Filt Rate 37 ml/min (>60); GFR (African American) 45 ML/MIN (>60); Globulin 4.3 g/dL (1.3-3.2); Glucose 202 mg/dl (74-100); Total Protein,Serum 7.5 g/dl (6.3-8.2)
--- NOTE | 2023-06-23 12:32 | ED_ITS ---
Discharge Plan Disposition Patient Disposition: Admitted Chief Complaint: Urogenital-Male Clinical Impressions Clinical Impression: Acute UTI, KJ (acute kidney injury) Discharge ED Provider: Benji Chery General Adult HPI General Chief complaint: Urogenital-Male Stated complaint: Low urine output Time Seen by Provider: 06/23/23 11:52 Mode of Arrival: EMS Source of Information: Patient Limitations: No Limitations Description of Symptoms (Recalled from ER Triage Doc. by RN): Patient reports low urinary output and no bowel movement for 1 week. History of Present Illness HPI narrative: 77-year-old male history of hypertension, hyperlipidemia, BPH, diabetes, increasing difficulty with urination presenting with difficulty urinating. Patient states that he has not had a bowel movement for around a week, urinary output has been low. Last urinated last night, 06/21. Denies dysuria, hematuria, fevers, chills, weakness, abdominal pain, flank pain, or any other concerns. Mainly concerned about his urination. Has been tolerating oral intake without issue. Still passing gas. Please note that above description of symptoms, in this electronic medical record under categorization of recalled from ER triage doctor by RN are reflective of an initial nursing assessment, however, is not reflective of my full history and physical exam that was personally taken and clarified. Consequentially, this preceding description of symptoms, which may include the patient's categorized chief complaint in the EMR, do not reflect my personal clinical impression, and the ultimate description of history of present illness and patient stated complaints should be deferred to this section of the note. Unless stated otherwise or congruent with this section of the note, additional signs, symptoms, or incongruence should be interpreted as inaccurate with my clinical impression. Related Data Home Medications Medication Instructions Recorded Confirmed atorvastatin 40 mg tablet 40 mg PO HS 04/22/23 05/29/23 losartan 100 mg tablet 100 mg PO DAILY 04/22/23 05/29/23 paroxetine HCl 40 mg tablet 40 mg PO DAILY 04/22/23 05/29/23 aspirin 81 mg chewable tablet 81 mg PO DAILY 05/08/23 05/29/23 omeprazole 20 mg capsule,delayed 20 mg PO DAILY 05/08/23 05/29/23 release oxybutynin chloride 5 mg 5 mg PO DAILY 05/08/23 05/29/23 tablet,extended release 24 hr tamsulosin 0.4 mg capsule 0.4 mg PO DAILY 05/08/23 05/29/23 allopurinol 300 mg tablet 300 mg PO DAILY 05/29/23 05/29/23 carvedilol 25 mg tablet 25 mg PO BID 05/29/23 05/29/23 levothyroxine 25 mcg tablet 25 mcg PO DAILY 05/29/23 05/29/23 quetiapine 100 mg tablet 100 mg PO HS 05/29/23 05/29/23 trazodone 50 mg tablet 50 mg PO HS 05/29/23 05/29/23 Previous Rx's Medication Instructions Recorded carbidopa 25 mg-levodopa 100 mg 1 tab PO QID 30 days #120 tabs 06/02/23 tablet insulin aspart U-100 100 unit/mL See Rx Instructions .Route 06/02/23 (3 mL) subcutaneous pen (Novolog .COMPLEX 30 days #15 mL FlexPen U-100 Insulin aspart) insulin glargine 100 unit/mL (3 50 unit (0.5 mL) SQ DAILY 30 days 06/02/23 mL) subcutaneous pen (Lantus #15 mL Solostar U-100 Insulin) magnesium oxide 400 mg (241.3 mg 400 mg PO DAILY 30 days #30 tabs 06/02/23 magnesium) tablet hydrocodone 5 mg-acetaminophen 325 1 tab PO BID PRN pain #60 tabs 06/20/23 mg tablet Allergies Allergy/AdvReac Type Severity Reaction Status Date / Time No Known Allergies Allergy Verified 03/06/23 14:00 [facility] Disclaimer: The information contained in this section may have been updated after the patient was seen, as this information can be updated by other users. Medical History GERD (gastroesophageal reflux disease) Gout Insomnia CKD (chronic kidney disease) Decreased mobility History of osteomyelitis Osteomyelitis Surgical History History of amputation of toe History of colonoscopy History of laparoscopic cholecystectomy Family History Other No significant family history Social History Smoking Status: Unknown if ever smoked alcohol intake: never substance use type: denies use current occupational status: unemployed Travel in the last 8 weeks: None household members: family housing: house number of children: 1 caffeine: Yes ROS Obtained: Yes All systems reviewed & no additional complaints except as documented Physical Exam General General appearance: alert and in no apparent distress Head Head exam: atraumatic and normocephalic Eye Eye exam: Present normal appearance, PERRL and EOMI ENT ENT exam: Present mucous membranes dry Neck Neck exam: Present normal inspection, full ROM and trachea midline Respiratory Respiratory exam: Absent respiratory distress, wheezes, stridor, accessory muscle use or prolonged expiratory phase Cardiovascular Cardiovascular exam: Present regular rate and normal rhythm Abdominal Exam Abdominal exam: Present soft; Absent distention, tenderness, guarding, rebound or rigidity Extremities Exam Extremities exam: Absent edema Neurological Exam Neurological exam: Present alert, oriented X3, CN II-XII intact and normal gait; Absent motor sensory deficit Skin Skin exam: Present warm and dry; Absent diaphoresis or erythema Medical Decision Making Medical Records Medical records reviewed: Yes I reviewed the patient's medical records. Simone Inquiry Pt receiving controlled substance: No Simone was queried for this patient: No Vital Signs: 06/23/23 11:38 06/23/23 11:40 06/23/23 12:00 Temperature 98.0 F Temperature Source Oral Pulse Rate 63 63 Pulse Rate [Right Radial] 63 Respiratory Rate 16 16 Blood Pressure 163/69 H 163/69 H Blood Pressure [Right Arm] 163/69 H Blood Pressure Mean Blood Pressure Mean [Right Arm] 100 Blood Pressure Source Automatic Cuff Blood Pressure Source [Right Arm] Automatic Cuff Blood Pressure Position Supine Blood Pressure Position [Right Arm] Sitting 02 Sat by Pulse Oximetry 97 98 97 Oxygen Delivery Method Room Air Room Air 06/23/23 12:30 06/23/23 13:00 06/23/23 13:31 Temperature Temperature Source Pulse Rate 61 62 62 Pulse Rate [Right Radial] Respiratory Rate 16 Blood Pressure 156/69 H 140/62 148/74 H Blood Pressure [Right Arm] Blood Pressure Mean 97 Blood Pressure Mean [Right Arm] Blood Pressure Source Blood Pressure Source [Right Arm] Blood Pressure Position Blood Pressure Position [Right Arm] 02 Sat by Pulse Oximetry 96 97 97 Oxygen Delivery Method Room Air Room Air 06/23/23 14:01 06/23/23 14:31 Temperature Temperature Source Pulse Rate Pulse Rate [Right Radial] Respiratory Rate Blood Pressure 181/75 H 160/73 H Blood Pressure [Right Arm] Blood Pressure Mean 110 102 Blood Pressure Mean [Right Arm] Blood Pressure Source Blood Pressure Source [Right Arm] Blood Pressure Position Blood Pressure Position [Right Arm] 02 Sat by Pulse Oximetry Oxygen Delivery Method Lab Data Lab Results 06/23/23 11:20: WBC 9.6, RBC 3.77 L, Hgb 11.0 L, Hct 34.9 L, MCV 92.5, MCH 29.2, MCHC 31.5 L, RDW 15.6, Plt Count 227, MPV 8.6, Neut % (Auto) 64.7, Lymph % (Auto) 20.4, [place] % (Auto) 7.5, Eos % (Auto) 6.7, Baso % (Auto) 0.7, Neut # (Auto) 6.2, Lymph # (Auto) 2.0, [place] # (Auto) 0.7, Eos # (Auto) 0.6 H, Baso # (Auto) 0.1, Sodium 133 L, Potassium 4.5, Chloride 98, Carbon Dioxide 30, Anion Gap 9.5, BUN 26 H, Creatinine 1.80 H, Estimated Creat Clear 43, Estimated GFR 37 L, Est GFR ( Amer) 45 L, Glucose 202 H, Calcium 8.4, Total Bilirubin 0.7, AST 40, ALT 15, Alkaline Phosphatase 142 H, Total Protein 7.5 D, Albumin 3.2 L, Globulin 4.3 H, Albumin/Globulin Ratio 0.7 L 06/23/23 12:46: Urine Color Yellow, Urine Appearance Cloudy, Urine pH 6.0, Ur Specific [place] 1.020, Urine Protein 2+, Urine Glucose (UA) Negative, Urine Ketones Negative, Urine Blood 2+, Urine Nitrate Negative, Urine Bilirubin Negative, Urine Urobilinogen 0.2, Ur Leukocyte Esterase 3+ A, Urine RBC 3-5, Urine WBC Tntc, Ur Squamous Epith Cells Occasional, Urine Bacteria 1+ 06/23/23 11:20 06/23/23 11:20 Orders (Tests/Meds): ED MEDICATIONS Generic Name Dose Route Start Last Admin Trade Name Freq PRN Reason Stop Dose Admin Acetaminophen 650 mg 06/23/23 14:24 Acetaminophen 325mg Tab PO 07/23/23 14:23 Q4HP PRN Fever or Mild Pain (1-3) Hydrocodone Bitart/Acetaminophen 1 tab 06/23/23 14:24 Hydrocodone/Apap 5/325 Mg Tablet PO 07/23/23 14:23 Q4HP PRN Moderate Pain (4-6) Heparin Sodium (Porcine) 5,000 unit 06/23/23 14:30 Heparin Sodium 5,000 Unit/Ml Vial SQ 07/23/23 14:29 Q8H ESTHER Ondansetron HCl 4 mg 06/23/23 14:24 Ondansetron 4mg/2ml Vial IV 07/23/23 14:23 Q8HP PRN Nausea Discontinued Medications Generic Name Dose Route Start Last Admin Trade Name Freq PRN Reason Stop Dose Admin Lactated Ringer's 1,000 mls @ 999 mls/hr 06/23/23 12:33 06/23/23 12:53 Lactated Ringer's 1000 Ml Bag IV 06/23/23 13:33 999 mls/hr .Q1H1M ONE Administration Ceftriaxone Sodium 1 gm/ 50 mls @ 100 mls/hr 06/23/23 13:13 06/23/23 13:45 Sodium Chloride IV 06/23/23 13:42 100 mls/hr ONCE ONE Administration ORDERS Category Date Time Status Basic Metabolic Panel AMLAB Lab 06/24/23 06:00 Ordered Basic Metabolic Panel AMLAB Lab 06/25/23 06:00 Ordered Basic Metabolic Panel AMLAB Lab 06/26/23 06:00 Ordered CBC w/Auto Diff [Complete Blood Count Auto Diff] Stat Lab 06/23/23 11:20 Completed CMP [Comprehensive Metabolic Panel] Stat Lab 06/23/23 11:20 Completed Complete Blood Count Auto Diff AMLAB Lab 06/24/23 06:00 Ordered Complete Blood Count Auto Diff AMLAB Lab 06/25/23 06:00 Ordered Complete Blood Count Auto Diff AMLAB Lab 06/26/23 06:00 Ordered UA [Urinalysis and Microscopic] Stat Lab 06/23/23 12:46 Completed Urine Culture Stat Micro 06/23/23 12:46 Received Medical Decision Narrative: 77-year-old male history of hypertension, hyperlipidemia, BPH, diabetes, increasing difficulty with urination presenting with difficulty urinating. Patient states that he has not had a bowel movement for around a week, urinary output has been low. Last urinated last night, 06/21. Denies dysuria, hematuria, fevers, chills, weakness, abdominal pain, flank pain, or any other concerns. Mainly concerned about his urination. Has been tolerating oral intake without issue. Still passing gas. Patient was recently discharged from the hospital, Allen catheter was removed at that time, he was able to urinate without issue. History was obtained via conversation with patient. On arrival, patient hemodynamically stable, alert, oriented x4, appropriate, GCS 15, moving all extremities spontaneously, pupils equal and reactive to light. Full physical exam performed and significant for chronically ill-appearing male no acute distress. Dry mucous membranes, nontachycardic, very well-appearing overall. Abdomen is soft, nontender, nondistended. Differential includes UTI, BPH, urinary retention, neurogenic bladder, nephrolithiasis, bladder stone, malignancy, among others. Patient was given LR fluid bolus for symptomatic management and correction of underlying abnormalities. Workup independently interpreted and significant for mild KJ. UA with urinary tract infection. On reevaluation, patient resting comfortably in bed, 1 g ceftriaxone given. Medicine contacted and case was discussed at length, patient becoming increasingly debilitated, numerous visits to the emergency department and hospital encounters, likely would benefit from placement again. Given patient presentation, workup, history, this most likely represents UTI and KJ. Because patient high risk for clinical decompensation, deemed appropriate for inpatient admission. Results were relayed to patient who voiced understanding and patient was agreeable to inpatient admission and management. Patient was admitted to the hospital for further definitive management. Grievance And Appeals Specialist disclaimer Much of this encounter note is an electronic yarding and folding machine operator spoken language to printed text. Electronic yarding and folding machine operator of the spoken language may permit errors. Although I have reviewed the note, some errors may still exist. Critical Care Critical Care Time Critical Care Time: No
[2023-06-23 12:51] LABS: Microscopic, Urine URINE MICROSCOPIC (MICROSCOPIC)
[2023-06-23 12:52] LABS: Appearance,Urine CLOUDY (Clear); Bilirubin,Urine Negative (Negative); Blood, Urine 2+ (Negative); Color,Urine YELLOW (Yellow); Glucose,Urine (UA) Negative (Negative); Ketones,Urine Negative (Negative); Leukocyte Esterase,Urine 3+ (Negative); Nitrate,Urine Negative (Negative); Protein,Urine 2+ (Negative); Urobilinogen,Urine 0.2 EU/dl (0.2)
[2023-06-23] MEDS: LACTATED RINGERS 1000ML 1,000 ML 999 ML IV (12:53)
[2023-06-23 13:15] LABS: Bacteria,Urine 1+ /lpf; Squamous Epithelial Cell,Urine Occasional #/hpf (0-5); WBC,Urine TNTC #/hpf (0-3)
[2023-06-23] MEDS: CEFTRIAXONE SODIUM 1 GM in 0.9 % SODIUM CHLORIDE 50 ML IV (13:45)
--- OUTSIDE RECORDS SUMMARY | 2023-06-23 14:51 | XMS_ITS | Clinical Summary ---
Author Name Unknown Address [address] [place] [address] Phone Organization [facility] Address [address] [place] [address] Phone Care Team Providers Care Attending Pathologist Name Role Phone Unavailable Unavailable Conditions or Problems No information available. Medications No information available. Medications Administered No information available. Allergies, Adverse Reactions, Alerts No information available. Results No information available. Plan of Care No information available. Procedures No information available. Vital Signs No information available. Immunizations No information available. Advance Directives No information available.
--- OUTSIDE RECORDS SUMMARY | 2023-06-23 14:51 | XMS_ITS | Continuity of Care Document ---
Author Name Unknown Organization [facility] Address [address] [place] [address] Phone Care Team Providers Care Gi Physician Name Role Phone Erasmo Lizama MD Unavailable [...] Diagnoses Date Provider Providers Copied on Encounter [facility] , [address] [facility], [place], [address], [place] tel:[phone] [facility] No Information 4 Alda Zimmerman. [address] [place] [address], [address]. tel: [phone] [facility] , [address] [place] [address], [facility], tel:[phone] [place] [facility] diabetes (chief complaint) Cataract (chief complaint) Diabetes with ophthalmic manifestations, type II or unspecified type, uncontrolledMild nonproliferative diabetic retinopathySenile nuclear sclerosisVitreous degenerationMacul ar puckering of retina 4 Alda Zimmerman. [address] [place] [address], [address]. tel: [phone] [facility] , [address] [place] [address], [facility], tel:[phone] [facility] Diabetes Mellitus, Adult Onset, UncontrolledSenil e nuclear sclerosisVitreous degeneration 3 Alda Zimmerman. [address] [place] [address], [address]. tel: [phone] [facility] , [address] [place] [address], [facility], [place] tel:[phone] [facility] No Information 1 Alda Zimmerman. [address] [place] [address], [address]. tel: [phone] Referring Provider: MELLISA Joe, [address] [place] [address] [address], [place], [address]. tel:[phone] Family History Family Member Type Diagnosis Age At Onset No Information Payers Payer name Insurance type Covered alliance party ID Authoriza tion(s) No Information Social [...] Instructions Date Instruction Additional George gomez - Cataracts - No juli atment currently [...] Related to Macular puckering of retina - Diabetes type II: mild nonproliferative diabetic [...] type II or unspecified type, uncontrolled - Return in 1 year w [...]
--- NOTE | 2023-06-23 15:05 | HMH.PTEV ---
Physical Therapy Evaluation Rehab PT IP Evaluation Start: 06/23/23 14:25 Freq: ONCE Status: Active Protocol: Document 06/23/23 14:59 PHORNE (Rec: 06/23/23 15:04 PHORNE Laptop) Subjective/History History History 77 yowm adm to [facility] with decreased urine output and generalized weakness. He reports he lives with daughter , 3 JESSICA the home, and he uses a RW for ambulation at baseline. Daughter reports he has not been ambulating much at home since he was recently d/c from short term rehab ~ 1 day ago. He has PMH of GERD (gastroesophageal reflux disease) Gout Insomnia CKD (chronic kidney disease) Decreased mobility History of osteomyelitis Osteomyelitis Subjective Subjective Pt reports no c/o at this time and agrees to mobility assessment. New diagnosis of cancer in past 12 No months? Rehab PT IP Eval Objective Appearance Patient Behavior Appropriate Patient Orientation Person,Place Difficulty following instructions none Speech Pattern Clear Ambulation Patient Able to Ambulate No Balance Ability to Arise Able, uses arms to help Sitting Balance Leans or slides in chair Standing Balance Steady, wide stance Dynamic Sitting Balance Ability Fair Dynamic Standing Balance Ability Poor Transfers Bed Transfer Ability Minimal x 1 (25% assist) Chair Transfer Ability Minimal x 1 (25% assist) Sit to Stand Bed Transfer Ability Minimal x 1 (25% assist) Sit to Stand Chair Transfer Ability Minimal x 1 (25% assist) Rehab PT IP prob,goals,plan Problems Date of Evaluation: 06/23/23 PT IP Problems Bed Mobility,Transfers,Gait Rehab Potential Rehab Potential Good Plan PT Intervention Plan Bed Mobility,Transfers,Gait, Therapeutic Exercise PT Plan Frequency Daily Duration LOS Discharge Goals Bed Transfer Ability Contact Guard/Hand Hold Sit to Stand Chair Transfer Ability Contact Guard/Hand Hold Ambulation Assistive Device Rolling Walker Ambulation Distance (feet) 20 Discharge Plan PT Discharge Plan Pt presents weaker than his suggested baseline and skilled therapy is indicated to help return him to his prior level of function and prevent further injuries or debility. He may need LTC vs short term rehab placement as it appears family is unable to care for all of his needs at home at this time. Eval Complexity Eval Charge Codes 84490 - High Complexity PHYSICIAN CERTIFICATION: I certify the specified therapy services for Tomas Lizzette are required, authorized, and reviewed every 30 days.
--- NOTE | 2023-06-23 15:09 | PC.NURSE ---
PT GOING UP FOR ADMISSION
[2023-06-23] MEDS: HEPARIN SODIUM 5,000 UNIT/ML VIAL 5000 UNIT SQ ×2 (16:12→21:39)
[2023-06-23 16:25] LABS: POC Glucose,Bedside 174 (70-110)
--- NOTE | 2023-06-23 16:55 | EXP.HP ---
History of Present Illness *Admission Date: 06/23/23 *Reason for visit:: generalized weakness *History of present illness: Patient is a 77-year-old male with past medical history of hypertension hyperlipidemia diabetes mellitus BPH urinary retention who presented to hospital due to generalized weakness, having some difficulty urination. On further evaluation patient was found to have UA suggestive of UTI as well as elevated creatinine. Patient otherwise denied fevers chills nausea vomiting diarrhea. [facility] Disclaimer: The information contained in this section may have been updated after the patient was seen, as this information can be updated by other users. Medical History GERD (gastroesophageal reflux disease) Gout Insomnia CKD (chronic kidney disease) Decreased mobility History of osteomyelitis Osteomyelitis Surgical History History of amputation of toe History of colonoscopy History of laparoscopic cholecystectomy Family History Other No significant family history Social History Smoking Status: Unknown if ever smoked alcohol intake: never substance use type: denies use current occupational status: unemployed Travel in the last 8 weeks: None household members: family housing: house number of children: 1 caffeine: Yes Review of Systems Review of Systems Review of systems:: pertinent systems reviewed and negative unless documented below Meds Home Medications and Allergies Home Medications Medication Instructions Recorded Confirmed Type atorvastatin 40 mg tablet 40 mg PO HS 04/22/23 06/23/23 History losartan 100 mg tablet 100 mg PO DAILY 04/22/23 06/23/23 History paroxetine HCl 40 mg tablet 40 mg PO DAILY 04/22/23 06/23/23 History aspirin 81 mg chewable tablet 81 mg PO DAILY 05/08/23 06/23/23 History omeprazole 20 mg capsule,delayed 20 mg PO DAILY 05/08/23 06/23/23 History release allopurinol 300 mg tablet 300 mg PO DAILY 05/29/23 06/23/23 History carvedilol 25 mg tablet 25 mg PO BID 05/29/23 06/23/23 History levothyroxine 25 mcg tablet 25 mcg PO DAILY 05/29/23 06/23/23 History quetiapine 100 mg tablet 100 mg PO HS 05/29/23 06/23/23 History trazodone 50 mg tablet 50 mg PO HS 05/29/23 06/23/23 History carbidopa 25 mg-levodopa 100 mg 1 tab PO QID 30 days #120 tabs 06/02/23 06/23/23 Rx tablet insulin aspart U-100 100 unit/mL See Rx Instructions .Route 06/02/23 06/23/23 Rx (3 mL) subcutaneous pen (Novolog .COMPLEX 30 days #15 mL FlexPen U-100 Insulin aspart) insulin glargine 100 unit/mL (3 50 unit (0.5 mL) SQ DAILY 30 days 06/02/23 06/23/23 Rx mL) subcutaneous pen (Lantus #15 mL Solostar U-100 Insulin) hydrocodone 5 mg-acetaminophen 325 1 tab PO BID PRN pain #60 tabs 06/20/23 06/23/23 Rx mg tablet gabapentin 400 mg capsule See Rx Instructions .Route .COMPLEX 06/23/23 06/23/23 History New Prescriptions to Start Prescriptions: Allergies Allergy/AdvReac Type Severity Reaction Status Date / Time No Known Allergies Allergy Verified 03/06/23 14:00 Exam Data for Last 24 hours Vital signs and Labs for Last 24 Hours: Temp Pulse Resp BP Pulse Ox O2 Del Method 97.7 F 74 24 104/64 L 94 L Room Air 06/23/23 16:00 06/23/23 16:00 06/23/23 16:00 06/23/23 16:00 06/23/23 16:00 06/23/23 16:00 Laboratory Results - last 24 hr 06/23/23 11:20: WBC 9.6, RBC 3.77 L, Hgb 11.0 L, Hct 34.9 L, MCV 92.5, MCH 29.2, MCHC 31.5 L, RDW 15.6, Plt Count 227, MPV 8.6, Neut % (Auto) 64.7, Lymph % (Auto) 20.4, [place] % (Auto) 7.5, Eos % (Auto) 6.7, Baso % (Auto) 0.7, Neut # (Auto) 6.2, Lymph # (Auto) 2.0, [place] # (Auto) 0.7, Eos # (Auto) 0.6 H, Baso # (Auto) 0.1, Sodium 133 L, Potassium 4.5, Chloride 98, Carbon Dioxide 30, Anion Gap 9.5, BUN 26 H, Creatinine 1.80 H, Estimated Creat Clear 43, Estimated GFR 37 L, Est GFR ( Amer) 45 L, Glucose 202 H, Calcium 8.4, Total Bilirubin 0.7, AST 40, ALT 15, Alkaline Phosphatase 142 H, Total Protein 7.5 D, Albumin 3.2 L, Globulin 4.3 H, Albumin/Globulin Ratio 0.7 L 06/23/23 12:46: Urine Color Yellow, Urine Appearance Cloudy, Urine pH 6.0, Ur Specific [place] 1.020, Urine Protein 2+, Urine Glucose (UA) Negative, Urine Ketones Negative, Urine Blood 2+, Urine Nitrate Negative, Urine Bilirubin Negative, Urine Urobilinogen 0.2, Ur Leukocyte Esterase 3+ A, Urine RBC 3-5, Urine WBC Tntc, Ur Squamous Epith Cells Occasional, Urine Bacteria 1+ 06/23/23 16:15: POC Glucose 174 H I & O for Last 24 hours: Intake & Output 06/20/23 06/21/23 06/22/23 06/23/23 23:59 23:59 23:59 23:59 Intake Total 0 / 0 Output Total 0 / 0 Balance 0 / 0 Weight 87.997 kg Constitutional Constitutional: no acute distress *Routine HEENT Exam Head: Present normocephalic Eye: Present EOMI and PERRL ENT: Present mucous membranes moist *Routine Neck Exam Neck: Present supple; Absent lymphadenopathy *Routine Respiratory Exam Respiratory: Present CTA bilaterally *Routine Cardiovascular Exam Cardiovascular: Present RRR *Routine Abdominal Exam Abdominal: Present soft and normoactive bowel sounds; Absent tenderness *Routine Rectal Exam Rectal:: deferred *Routine Genitalia Exam Genitalia:: deferred *Routine Extremities Exam Extremities: Absent cyanosis, clubbing or edema *Routine Skin Exam Skin: Present warm; Absent rash *Routine Neurological Exam Neurological: Present alert and oriented X3 Assessment and Plan *Assessment and plan (1) KJ (acute kidney injury): Status: Acute Category: Medical Code(s): N17.9 - Acute kidney failure, unspecified (2) Acute UTI: Status: Acute Category: Medical Code(s): N39.0 - Urinary tract infection, site not specified (3) HLD (hyperlipidemia): Status: Acute Category: Medical Code(s): E78.5 - Hyperlipidemia, unspecified (4) HTN (hypertension): Status: Acute Category: Medical Code(s): I10 - Essential (primary) hypertension (5) Diabetes mellitus: Status: Chronic Category: Medical Code(s): E11.9 - Type 2 diabetes mellitus without complications Plan Patient is a 77-year-old male with past medical history of hypertension hyperlipidemia diabetes mellitus BPH urinary retention who presented to hospital due to generalized weakness, having some difficulty urination. On further evaluation patient was found to have UA suggestive of UTI as well as elevated creatinine. Patient otherwise denied fevers chills nausea vomiting diarrhea. Assessment and plan Acute kidney injury Decreased urinary output Started on gentle IV fluid therapy Monitor creatinine Monitor urine output Strict I's and O's Urinary tract infection Start IV Rocephin Follow-up on urine cultures Diabetes mellitus Insulin sliding scale Hypertension Hyperlipidemia DVT prophylaxis-heparin
[2023-06-23] MEDS: CARBIDOPA/LEVODOPA 25/100MG TABLET 1 EACH PO ×2 (17:37→21:39)
[2023-06-23] MEDS: 0.9 % SODIUM CHLORIDE 1000ML 1,000 ML 75 ML IV (17:41)
--- NOTE | 2023-06-23 18:03 | PC.NURSE ---
Patient is alert & oriented x4 this shift. Tolerating room air well. Male purewick in place due to incontinence. Patient has had no complaints this shift. Call light within reach.
[2023-06-23 21:20] LABS: POC Glucose,Bedside 247 (70-110)
[2023-06-23] MEDS: TRAZODONE 50MG TABLET 50 MG PO (21:39)
[2023-06-23] MEDS: humaLOG 100 UNITS/ML 3ML VIAL (SSI) SQ (21:39)
[2023-06-23] MEDS: QUETIAPINE 100MG TABLET 100 MG PO (21:39)
[2023-06-23] MEDS: ATORVASTATIN 40MG TABLET 40 MG PO (21:40)
[2023-06-23] MEDS: CARVEDILOL 25MG TABLET 25 MG PO (21:40)
[2023-06-23] MEDS: PANTOPRAZOLE 40MG TABLET 40 MG PO (21:40)
[2023-06-24 04:00] VITALS: BP 166/76; PULSE 70; RESP 16; TEMP 36.8; O2SAT 97; BMI 24.8
--- NOTE | 2023-06-24 04:56 | PC.NURSE ---
Patient has had a great night. Patient daniela at the start of shift was not working, so patient got cleaned up and did have a bed bath. Patient daughter did call and made mention that she would love for the doctor to call her and update her on the plan as the patient has been in and out of the hospital since April with these same issues. RN told daughter that she would pass it along in report. Patient has rested well with no complaints.
[2023-06-24 05:35] LABS: POC Glucose,Bedside 154 (70-110)
[2023-06-24] MEDS: 0.9 % SODIUM CHLORIDE 1000ML 1,000 ML 75 ML IV (05:38)
[2023-06-24] MEDS: humaLOG 100 UNITS/ML 3ML VIAL (SSI) SQ ×2 (05:38→20:32)
[2023-06-24] MEDS: HEPARIN SODIUM 5,000 UNIT/ML VIAL 5000 UNIT SQ ×3 (05:38→22:38)
[2023-06-24 07:26] VITALS: BP 150/80; PULSE 67; RESP 16; TEMP 36.6; O2SAT 94
[2023-06-24 08:12] LABS: Basophils # 0.1 K/mm3 (0-0.2); Basophils % 0.6 % (0.1-2.0); Eosinophils # 0.4 K/mm3 (0.0-0.4); Eosinophils % 4.3 % (0.1-12.0); Hematocrit 32.7 % (42.0-52.0); Hemoglobin 10.7 g/dL (14.1-18.0); Lymphocytes # 1.7 K/mm3 (0.7-4.5); Lymphocytes % 18.1 % (10-50); Mean Corpuscular HGB Conc 32.6 g/dL (31.8-35.4); Mean Corpuscular Volume 92.1 fl (80-94); Monocytes # 0.7 K/mm3 (0.1-1.0); Monocytes % 7.1 % (1.7-9.3); Neutrophils # 6.4 K/mm3 (1.8-7.8); Neutrophils % 69.9 % (37.0-80.0); Platelet Count 227 K/mm3 (142-424); Red Blood Count 3.55 M/mm3 (4.60-6.20); Red Cell Distribution Width 15.5 % (11.5-17.5); White Blood Count 9.2 K/mm3 (4.8-10.8)
[2023-06-24 08:18] LABS: Chloride 104 mmol/L (98-107)
[2023-06-24 08:19] LABS: Potassium 4.2 mmoL/L (3.5-5.1); Sodium 138 mmol/L (136-145)
[2023-06-24 08:22] LABS: Anion Gap 8.2 mEq/L (5-15); Blood Urea Nitrogen 21 mg/dl (9-20); Calcium 8.3 mg/dl (8.4-10.2); Carbon Dioxide 30 mmol/L (22.0-30.0); Creatinine Clearance Estimated 47 mL/min (50-200); Estimated Glomerular Filt Rate 42 ml/min (>60); GFR (African American) 51 ML/MIN (>60); Glucose 156 mg/dl (74-100)
[2023-06-24] MEDS: ASPIRIN 81MG CHEWABLE TABLET 81 MG PO (09:18)
[2023-06-24] MEDS: CARBIDOPA/LEVODOPA 25/100MG TABLET 1 EACH PO ×4 (09:18→20:32)
[2023-06-24] MEDS: INSULIN GLARGINE 100 UNITS/ML 3ML FLEXPEN 50 UNIT SQ (09:18)
[2023-06-24] MEDS: IRBESARTAN 150MG TAB 150 MG PO (09:18)
[2023-06-24] MEDS: CARVEDILOL 25MG TABLET 25 MG PO ×2 (09:18→20:32)
[2023-06-24] MEDS: ALLOPURINOL 300MG TABLET 300 MG PO (09:18)
[2023-06-24] MEDS: PARoxetine 20MG TABLET 40 MG PO (09:18)
[2023-06-24] MEDS: LEVOTHYROXINE 25MCG (0.025MG) TAB 25 MCG PO (09:18)
[2023-06-24 11:25] LABS: POC Glucose,Bedside 133 (70-110)
[2023-06-24] MEDS: CEFTRIAXONE 1 GM 1 GM in 0.9 % SODIUM CHLORIDE 50 ML IV (13:49)
[2023-06-24 16:00] VITALS: BP 143/79; PULSE 88; RESP 16; TEMP 36.6
--- NOTE | 2023-06-24 16:27 | EXP.PN ---
Subjective *Date: 06/24/23 *Time: 16:27 Interval history: seen at bedside, radha CP, SOB, N/V Exam Data for Last 24 hours Vital signs and Labs for Last 24 Hours: Temp Pulse Resp BP Pulse Ox O2 Del Method 98 F 88 16 143/79 H 94 L Room Air 06/24/23 16:00 06/24/23 16:00 06/24/23 16:00 06/24/23 16:00 06/24/23 07:26 06/24/23 07:26 Laboratory Results - last 24 hr 06/23/23 21:12: POC Glucose 247 H 06/24/23 05:27: POC Glucose 154 H 06/24/23 07:50: WBC 9.2, RBC 3.55 L, Hgb 10.7 L, Hct 32.7 L, MCV 92.1, MCH 30.0, MCHC 32.6, RDW 15.5, Plt Count 227, MPV 8.0, Neut % (Auto) 69.9, Lymph % (Auto) 18.1, [place] % (Auto) 7.1, Eos % (Auto) 4.3, Baso % (Auto) 0.6, Neut # (Auto) 6.4, Lymph # (Auto) 1.7, [place] # (Auto) 0.7, Eos # (Auto) 0.4, Baso # (Auto) 0.1, Sodium 138, Potassium 4.2, Chloride 104, Carbon Dioxide 30, Anion Gap 8.2, BUN 21 H, Creatinine 1.60 H, Estimated Creat Clear 47, Estimated GFR 42 L, Est GFR ( Amer) 51 L, Glucose 156 H D, Calcium 8.3 L 06/24/23 11:18: POC Glucose 133 H I & O for Last 24 hours: Intake & Output 06/21/23 06/22/23 06/23/23 06/24/23 23:59 23:59 23:59 23:59 Intake Total 250 / 250 360 / 360 Output Total 400 / 400 2400 / 2400 Balance -150 / -150 -2039 / -2039 Weight 84.085 kg 85.049 kg Constitutional Constitutional: no acute distress *Routine HEENT Exam Head: Present normocephalic Eye: Present EOMI and PERRL ENT: Present mucous membranes moist *Routine Neck Exam Neck: Present supple; Absent lymphadenopathy *Routine Respiratory Exam Respiratory: Present CTA bilaterally *Routine Cardiovascular Exam Cardiovascular: Present RRR *Routine Abdominal Exam Abdominal: Present soft and normoactive bowel sounds; Absent tenderness *Routine Extremities Exam Extremities: Absent cyanosis, clubbing or edema *Routine Skin Exam Skin: Present warm; Absent rash *Routine Neurological Exam Neurological: Present alert and oriented X3 Assessment and Plan *Assessment and plan (1) KJ (acute kidney injury): Status: Acute Category: Medical Code(s): N17.9 - Acute kidney failure, unspecified (2) Acute UTI: Status: Acute Category: Medical Code(s): N39.0 - Urinary tract infection, site not specified (3) HLD (hyperlipidemia): Status: Acute Category: Medical Code(s): E78.5 - Hyperlipidemia, unspecified (4) HTN (hypertension): Status: Acute Category: Medical Code(s): I10 - Essential (primary) hypertension (5) Diabetes mellitus: Status: Chronic Category: Medical Code(s): E11.9 - Type 2 diabetes mellitus without complications Plan Patient is a 77-year-old male with past medical history of hypertension hyperlipidemia diabetes mellitus BPH urinary retention who presented to hospital due to generalized weakness, having some difficulty urination. On further evaluation patient was found to have UA suggestive of UTI as well as elevated creatinine. Patient otherwise denied fevers chills nausea vomiting diarrhea. Assessment and plan Acute kidney injury Decreased urinary output Started on gentle IV fluid therapy Monitor creatinine Monitor urine output Strict I's and O's Urinary tract infection Start IV Rocephin Follow-up on urine cultures Diabetes mellitus Insulin sliding scale Hypertension Hyperlipidemia DVT prophylaxis-heparin DC 1-2 days pending clinical improvement
[2023-06-24 17:00] LABS: POC Glucose,Bedside 99 (70-110)
--- NOTE | 2023-06-24 18:00 | PC.NURSE ---
pt a=&ox4 and vss.l Patient has had no c/o of pain or discomfort and patient is tolerating IV abx.
[2023-06-24 20:00] VITALS: BP 146/69; PULSE 61; RESP 18; TEMP 37.4; O2SAT 96
[2023-06-24 20:24] LABS: POC Glucose,Bedside 165 (70-110)
[2023-06-24] MEDS: PANTOPRAZOLE 40MG TABLET 40 MG PO (20:32)
[2023-06-24] MEDS: TRAZODONE 50MG TABLET 50 MG PO (20:32)
[2023-06-24] MEDS: QUETIAPINE 100MG TABLET 100 MG PO (20:32)
[2023-06-24] MEDS: ATORVASTATIN 40MG TABLET 40 MG PO (20:32)
--- NOTE | 2023-06-24 22:30 | PC.NURSE ---
report given to Sly Loredo RN at this time
[2023-06-25 04:00] VITALS: BP 180/74; PULSE 56; RESP 16; TEMP 36.5; O2SAT 97; BMI 25.0
--- NOTE | 2023-06-25 04:56 | PC.NURSE ---
Pt is alert and oriented x4 and currently tolerating RA well. Pt BP seems to be trending upward with no other symptoms pt is due to get scheduled carvedilol, will continue to monitor. Pt denies pain and has no other acute changes this shift.
[2023-06-25] MEDS: HEPARIN SODIUM 5,000 UNIT/ML VIAL 5000 UNIT SQ (05:39)
[2023-06-25] MEDS: LEVOTHYROXINE 25MCG (0.025MG) TAB 25 MCG PO (06:27)
[2023-06-25 06:34] LABS: POC Glucose,Bedside 99 (70-110)
[2023-06-25 07:34] LABS: Basophils % 0.5 % (0.1-2.0); Eosinophils # 0.3 K/mm3 (0.0-0.4); Eosinophils % 3.6 % (0.1-12.0); Hematocrit 31.7 % (42.0-52.0); Hemoglobin 10.3 g/dL (14.1-18.0); Lymphocytes # 1.5 K/mm3 (0.7-4.5); Lymphocytes % 16.8 % (10-50); Mean Corpuscular HGB Conc 32.5 g/dL (31.8-35.4); Mean Corpuscular Hemoglobin 30.1 pg (27.0-31.2); Mean Corpuscular Volume 92.6 fl (80-94); Mean Platelet Volume 8.5 fl (7.4-10.4); Monocytes # 0.5 K/mm3 (0.1-1.0); Monocytes % 5.2 % (1.7-9.3); Neutrophils # 6.6 K/mm3 (1.8-7.8); Neutrophils % 73.9 % (37.0-80.0); Platelet Count 224 K/mm3 (142-424); Red Blood Count 3.42 M/mm3 (4.60-6.20); Red Cell Distribution Width 15.5 % (11.5-17.5)
[2023-06-25 07:43] LABS: Anion Gap 8.4 mEq/L (5-15); Blood Urea Nitrogen 18 mg/dl (9-20); Calcium 8.3 mg/dl (8.4-10.2); Carbon Dioxide 31 mmol/L (22.0-30.0); Chloride 104 mmol/L (98-107); Creatinine Clearance Estimated 51 mL/min (50-200); Estimated Glomerular Filt Rate 46 ml/min (>60); GFR (African American) 55 ML/MIN (>60); Glucose 93 mg/dl (74-100); Potassium 3.4 mmoL/L (3.5-5.1); Sodium 140 mmol/L (136-145)
[2023-06-25 07:46] VITALS: BP 134/64; PULSE 63; RESP 21; TEMP 36.7; O2SAT 97
[2023-06-25] MEDS: ASPIRIN 81MG CHEWABLE TABLET 81 MG PO (08:23)
[2023-06-25] MEDS: IRBESARTAN 150MG TAB 150 MG PO (08:23)
[2023-06-25] MEDS: ALLOPURINOL 300MG TABLET 300 MG PO (08:23)
[2023-06-25] MEDS: PARoxetine 20MG TABLET 40 MG PO (08:23)
[2023-06-25] MEDS: CARVEDILOL 25MG TABLET 25 MG PO (08:24)
[2023-06-25] MEDS: INSULIN GLARGINE 100 UNITS/ML 3ML FLEXPEN 50 UNIT SQ (08:24)
[2023-06-25] MEDS: 0.9 % SODIUM CHLORIDE 1000ML 1,000 ML 75 ML IV (08:29)
[2023-06-25] MEDS: CARBIDOPA/LEVODOPA 25/100MG TABLET 1 EACH PO (08:29)
--- NOTE | 2023-06-25 10:31 | HMH.OTEV ---
OT Inpatient Evaluation Rehab OT IP Evaluation Start: 06/23/23 14:25 Freq: ONCE Status: Active Protocol: Document 06/25/23 10:27 ZANE (Rec: 06/25/23 10:31 ZANE [id number]) Rehab OT IP Assessment Subjective History Patient is a 77-year-old male with past medical history of hypertension hyperlipidemia diabetes mellitus BPH urinary retention who presented to hospital due to generalized weakness, having some difficulty urination. On further evaluation patient was found to have UA suggestive of UTI as well as elevated creatinine. Patient otherwise denied fevers chills nausea vomiting diarrhea. Patient lives at home with dtr and son -in -law. Patient was previously d/c home ~1 week ago from rehab at [facility]. Patient was independent with ADLs and fx'l mobility prior to hospitalization. Subjective My balance is bad. Instructed Patient on proper hand and foot placemen to complete bed mobility from supine->sit @ EOB->stand requiring Min A. Patient made no attempt to participate in ambulation task this morning after max encouragement. Patient used a RW to complete all transfers. Patient was able to stand with Min A x2 ~ 30 secs. Patient completed EOB ->supine with Min A. Objective Patient Orientation Person,Name,Age,Birthday,Year Right Upper Extremity Gross ROM WFL Left Upper Extremity Gross ROM WFL Assist Level Minimal x 1 (25% assist) Transfer Training Sit/Stand Transfer Assist Level Minimal x 2 (25% assist) Chair Transfer Ability Minimal x 2 (25% assist) Chair Transfer Technique Sit to/from Ambulatory Chair Transfer Assistive Devices Rolling Walker Rehab OT IP prob,goals,plan Problems Date of Evaluation: 06/25/23 OT IP Problems Bed Mobility,Transfers,Balance ,Self care,Safety Rehab Potential Rehab Potential Good Equipment Needs Assistive Devices Rolling / Wheeled Walker Plan OT intervention Plan Bed Mobility,Transfers,Balance ,Self care,Safety,Therapeutic Exercise OT Plan Frequency Daily Duration LOS Discharge Goals Bed Mobility Ability Assistance x1 Sit to Stand Chair Transfer Ability Minimal x 1 (25% assist) Chair Transfer Ability Minimal x 1 (25% assist) Chair Transfer Technique Sit to/from Ambulatory Chair Transfer Assistive Devices Rolling Walker Lower Body Dressing Ability Contact Guard Discharge Plan OT Discharge Plan Recommend short term rehabilitation at this time. Patient is unable to provide independent care for self at home. Patient does live with family, however they are not home 28/08. Patient to continue skilled OT IP services while here at [facility]. Eval Complexity Eval Charge Codes 26968 - Low Complexity PHYSICIAN CERTIFICATION: I certify the specified therapy services for Tomas Crocker are required, authorized, and reviewed every 30 days.
--- NOTE | 2023-06-25 10:55 | SW/DCPLANNER ---
Addendum entered by Guerline Angel 06/25/23 12:53: Brent w/ [facility] stated that services will start this week for this patient. Original Note: I spoke w/ patient and his daughter regarding plans at time of discharge. PT/OT evaluated patient and recommended SNF level of care. Patient expressed that he is not interested in returning to SNF level of care and wants to return home w/ his daughter. I spoke w/ daughter and she stated that patient recently discharged from [facility]. Daughter is agreeable for patient to return home w/ her and to set up home health services. Daughter stated that patient used [facility] in the past and prefers to use this agency again: information/order will be faxed today. Per MD patient will discharge this afternoon.
--- NOTE | 2023-06-25 10:56 | EXP.DC.SUM ---
General Admission date:: 06/23/23 Discharge date: 06/25/23 HPI HPI HPI: Patient is a 77-year-old male with past medical history of hypertension hyperlipidemia diabetes mellitus BPH urinary retention who presented to hospital due to generalized weakness, having some difficulty urination. On further evaluation patient was found to have UA suggestive of UTI as well as elevated creatinine. Patient otherwise denied fevers chills nausea vomiting diarrhea. Hospital Course Hospital Course Hospital Course: Patient is a 77-year-old male with past medical history of hypertension hyperlipidemia diabetes mellitus BPH urinary retention who presented to hospital due to generalized weakness, having some difficulty urination. On further evaluation patient was found to have UA suggestive of UTI as well as elevated creatinine. Patient otherwise denied fevers chills nausea vomiting diarrhea. Patient was admitted for KJ and generalized weakness which improved during the course of hospitalization, patient felt better and had no complains at day of discharge, patient was cleared for Discharge on oral levofloxacin for UTI, patient to follow up with appointments patient seen and evaluated on the day of discharge. Patient informed about following up with appointments. Patient verbalized understanding for follow-up appointments. The patient and / or the family were informed of the results of tests, a time was given to answer questions, a plan was proposed and they agreed with plan. Medical reconciliation performed. Patient discharged stable condition. On the date of discharge, the patient reported feeling stable. The patient was found not to be in any acute distress, and no new abnormalities on physical examination. Further, the patient expressed appropriate understanding of, and agreement with, the discharge recommendations, medications, and plan. time spent 37 mins Exam Data for Last 24 hours Vital signs and Labs for Last 24 Hours: Temp Pulse Resp BP Pulse Ox O2 Del Method 98.0 F 63 21 134/64 97 Room Air 06/25/23 07:46 06/25/23 07:46 06/25/23 07:46 06/25/23 07:46 06/25/23 07:46 06/25/23 09:00 Laboratory Results - last 24 hr 06/24/23 11:18: POC Glucose 133 H 06/24/23 16:51: POC Glucose 99 06/24/23 20:10: POC Glucose 165 H 06/25/23 06:23: WBC 9.0, RBC 3.42 L, Hgb 10.3 L, Hct 31.7 L, MCV 92.6, MCH 30.1, MCHC 32.5, RDW 15.5, Plt Count 224, MPV 8.5, Neut % (Auto) 73.9, Lymph % (Auto) 16.8, [place] % (Auto) 5.2, Eos % (Auto) 3.6, Baso % (Auto) 0.5, Neut # (Auto) 6.6, Lymph # (Auto) 1.5, [place] # (Auto) 0.5, Eos # (Auto) 0.3, Baso # (Auto) 0.0, Sodium 140, Potassium 3.4 L, Chloride 104, Carbon Dioxide 31 H, Anion Gap 8.4, BUN 18, Creatinine 1.50 H, Estimated Creat Clear 51, Estimated GFR 46 L, Est GFR ( Amer) 55 L, Glucose 93 D, Calcium 8.3 L 06/25/23 06:25: POC Glucose 99 I & O for Last 24 hours: Intake & Output 06/22/23 06/23/23 06/24/23 06/25/23 23:59 23:59 23:59 23:59 Intake Total 250 / 250 600 / 840 360 / 360 Output Total 400 / 400 2400 / 2400 1050 / 1050 Balance -150 / -150 -1800 / -1560 -690 / -690 Weight 84.085 kg 85.049 kg 85.638 kg Microbiology Reports for the Last 24 Hours: Microbiology 06/23/23 12:46 Urine,Clean Catch Urine Culture - Preliminary Constitutional Constitutional: no acute distress *Routine HEENT Exam Head: Present normocephalic Eye: Present EOMI and PERRL ENT: Present mucous membranes moist *Routine Neck Exam Neck: Present supple; Absent lymphadenopathy *Routine Respiratory Exam Respiratory: Present CTA bilaterally *Routine Cardiovascular Exam Cardiovascular: Present RRR *Routine Abdominal Exam Abdominal: Present soft and normoactive bowel sounds; Absent tenderness *Routine Extremities Exam Extremities: Absent cyanosis, clubbing or edema *Routine Skin Exam Skin: Present warm; Absent rash *Routine Neurological Exam Neurological: Present alert and oriented X3 Results Data Completed and Pending Labs on day of discharge: Labs from last 24 hours 06/25/23 06/25/23 06/24/23 06:25 06:23 20:10 WBC 9.0 RBC 3.42 L Hgb 10.3 L Hct 31.7 L MCV 92.6 MCH 30.1 MCHC 32.5 RDW 15.5 Plt Count 224 MPV 8.5 Neut % (Auto) 73.9 Lymph % (Auto) 16.8 [place] % (Auto) 5.2 Eos % (Auto) 3.6 Baso % (Auto) 0.5 Neut # (Auto) 6.6 Lymph # (Auto) 1.5 [place] # (Auto) 0.5 Eos # (Auto) 0.3 Baso # (Auto) 0.0 Sodium 140 Potassium 3.4 L Chloride 104 Carbon Dioxide 31 H Anion Gap 8.4 BUN 18 Creatinine 1.50 H Estimated Creat Clear 51 Estimated GFR 46 L Est GFR ( Amer) 55 L Glucose 93 D POC Glucose 99 165 H Calcium 8.3 L 06/24/23 06/24/23 16:51 11:18 WBC RBC Hgb Hct MCV MCH MCHC RDW Plt Count MPV Neut % (Auto) Lymph % (Auto) [place] % (Auto) Eos % (Auto) Baso % (Auto) Neut # (Auto) Lymph # (Auto) [place] # (Auto) Eos # (Auto) Baso # (Auto) Sodium Potassium Chloride Carbon Dioxide Anion Gap BUN Creatinine Estimated Creat Clear Estimated GFR Est GFR ( Amer) Glucose POC Glucose 99 133 H Calcium Preliminary micro results at discharge 06/23/23 12:46 Urine Culture - Preliminary Urine,Clean Catch DS: Diagnosis Discharge Diagnosis (1) KJ (acute kidney injury): Status: Acute Code(s): N17.9 - Acute kidney failure, unspecified (2) Acute UTI: Status: Acute Code(s): N39.0 - Urinary tract infection, site not specified (3) HLD (hyperlipidemia): Status: Acute Code(s): E78.5 - Hyperlipidemia, unspecified (4) HTN (hypertension): Status: Acute Code(s): I10 - Essential (primary) hypertension (5) Diabetes mellitus: Status: Chronic Code(s): E11.9 - Type 2 diabetes mellitus without complications Meds Home Medications and Allergies Home Medications Medication Instructions Recorded Confirmed Type atorvastatin 40 mg tablet 40 mg PO HS 04/22/23 06/23/23 History losartan 100 mg tablet 100 mg PO DAILY 04/22/23 06/23/23 History paroxetine HCl 40 mg tablet 40 mg PO DAILY 04/22/23 06/23/23 History aspirin 81 mg chewable tablet 81 mg PO DAILY 05/08/23 06/23/23 History omeprazole 20 mg capsule,delayed 20 mg PO DAILY 05/08/23 06/23/23 History release allopurinol 300 mg tablet 300 mg PO DAILY 05/29/23 06/23/23 History carvedilol 25 mg tablet 25 mg PO BID 05/29/23 06/23/23 History levothyroxine 25 mcg tablet 25 mcg PO DAILY 05/29/23 06/23/23 History quetiapine 100 mg tablet 100 mg PO HS 05/29/23 06/23/23 History trazodone 50 mg tablet 50 mg PO HS 05/29/23 06/23/23 History carbidopa 25 mg-levodopa 100 mg 1 tab PO QID 30 days #120 tabs 06/02/23 06/23/23 Rx tablet insulin glargine 100 unit/mL (3 50 unit (0.5 mL) SQ DAILY 30 days 06/02/23 06/23/23 Rx mL) subcutaneous pen (Lantus #15 mL Solostar U-100 Insulin) gabapentin 400 mg capsule 400 mg PO BIDP PRN NEUROPATHIC PAIN 06/23/23 06/24/23 History hydrocodone 5 mg-acetaminophen 325 1 tab PO BIDP PRN Pain, Moderate 06/24/23 06/24/23 History mg tablet insulin aspart U-100 100 unit/mL 10 unit SQ QPMWITHMEAL 06/24/23 06/24/23 History (3 mL) subcutaneous pen (Novolog FlexPen U-100 Insulin aspart) levofloxacin 750 mg tablet 750 mg PO Q24H 5 days #5 tabs 06/25/23 Rx New Prescriptions to Start Prescriptions: Kishan Uribe Allergies Allergy/AdvReac Type Severity Reaction Status Date / Time No Known Allergies Allergy Verified 03/06/23 14:00 Discharge Plan Disposition Patient Disposition: Home Health Service Condition: Good Discharge Order Discharge Orders: Discharge Order (Routine); Ordered 06/25/23 Ordered By: Kishan Yarbrough Follow up Plan Follow up with: Chantel Ruggiero PA [Physician Front End Developer Designer] - 07/03/23 10:45 am Prescriptions/Medication Reconciliation: New levofloxacin 750 mg tablet 750 mg PO Q24H 5 Days Qty: 5 0RF Continued atorvastatin 40 mg tablet 40 mg PO HS paroxetine HCl 40 mg tablet 40 mg PO DAILY losartan 100 mg tablet 100 mg PO DAILY omeprazole 20 mg capsule,delayed release(DR/EC) 20 mg PO DAILY aspirin 81 mg tablet,chewable 81 mg PO DAILY allopurinol 300 mg tablet 300 mg PO DAILY carvedilol 25 mg tablet 25 mg PO BID trazodone 50 mg tablet 50 mg PO HS quetiapine 100 mg tablet 100 mg PO HS levothyroxine 25 mcg tablet 25 mcg PO DAILY carbidopa-levodopa 25-100 mg tablet 1 tab PO QID 30 Days Qty: 120 0RF insulin glargine [Lantus Solostar U-100 Insulin] 100 unit/mL (3 mL) insulin pen 50 unit SQ DAILY 30 Days Qty: 15 0RF gabapentin 400 mg capsule 400 mg PO BIDP PRN (Reason: NEUROPATHIC PAIN) Patient Comments: 400 MG orally twice a day as needed As Needed for pain hydrocodone-acetaminophen 5-325 mg tablet 1 tab PO BIDP PRN (Reason: Pain, Moderate) Patient Comments: TAKE 1 TABLET 2 TIMES EACH DAY NEEDED FOR PAIN insulin aspart U-100 [Novolog FlexPen U-100 Insulin] 100 unit/mL (3 mL) insulin pen 10 unit SQ QPMWITHMEAL Rx Instructions: 10 unit subcutaneously with dinner Problem Reconciliation Problems Reviewed?: Yes Patient Discharge Instructions ACTIVITY: Ambulate as tolerated DIET: continue same diet Patient Instructions: DI for Urinary Tract Infection (UTI), DI for Acute Kidney Injury Providers Primary Care Provider: Provider,Referral Admit Provider: Kishan Yarbrough Attending Provider: Kishan Yarbrough
[2023-06-25 11:12] LABS: POC Glucose,Bedside 230 (70-110)
[2023-06-25] MEDS: humaLOG 100 UNITS/ML 3ML VIAL (SSI) SQ (11:15)
--- NOTE | 2023-06-26 14:59 | CARE MANAGER ---
Contacted patient related to hospital discharge. He states he is doing very well. He has his antibiotic and is aware of follow up appointment. Denies questions or concerns at this time. GLENYS Parkinson
== END 2023-06-25 12:40 | disposition home health service (06) ==
LOC: ER 12:08 → 2ND 15:00
PROVIDERS: Admitting Provider Internal Medicine; Emergency Provider Emergency Medicine; Visit Provider Internal Medicine
DX: N17.9 Acute kidney failure, unspecified (principal); N39.0 Urinary tract infection, site not specified; E78.5 Hyperlipidemia, unspecified; I10 Essential (primary) hypertension; E11.9 Type 2 diabetes mellitus without complications; N40.1 Benign prostatic hyperplasia with lower urinary tract symptoms; R33.8 Other retention of urine; Z79.4 Long term (current) use of insulin; Z79.82 Long term (current) use of aspirin
CPT/HCPCS: 36415; 80048; 80053; 81001; 82962; 85025; 87086; 97163; 97165; 97530; 99285; G0378; J0696

== ENCOUNTER 2023-09-05 17:11 | Inpatient (IN) | payer MEDICARE, OTHER, SELFPAY ==
[2023-09-05] VITALS (8 sets, daily range): BP systolic 161–186; BP diastolic 92–96; PULSE 74–94; RESP 13–17; TEMP 36.7–37.7; O2SAT 95–98; BMI 24.8; BMI 25.7
--- NOTE | 2023-09-05 17:19 | HMH.EDGENADL ---
Discharge Plan Disposition Patient Disposition: Admitted Condition: Fair Clinical Impressions Clinical Impression: UTI (urinary tract infection) Discharge ED Provider: Chacha Nichols General Adult HPI General Chief complaint: Recheck/Abnormal Lab/Rx Stated complaint: hypoglycemia Time Seen by Provider: 09/05/23 17:17 History of Present Illness HPI narrative: This patient is a 78-year-old male with a history of type 2 diabetes with peripheral neuropathy, CKD, Parkinson's disease, hypothyroidism, decreased mobility, hypertension, hyperlipidemia, recurrent UTIs, and decreased mobility presenting to the emergency department for evaluation with concern for abnormal lab. He reports that he had routine lab work done [place] [facility] [place], and they called him to state that his potassium was critically low. He states that his legs feel like Jell-O today and he has been a little bit generally weak, but otherwise has been in his usual state of health with no other concerns or complaints. No fevers, chills, chest pain, shortness of breath, abdominal pain, nausea, vomiting, changes in bowel movements, or other concerns. He reports that he chronically has issues with his potassium and has had to get potassium in the past. Patient arrives by EMS who noted he was stable en route. Family reports this happened last time that he had a urinary tract infection. Related Data Home Medications ?Medication ?Instructions ?Recorded ?Confirmed atorvastatin 40 mg tablet 40 mg PO HS 04/22/23 09/05/23 paroxetine HCl 40 mg tablet 40 mg PO DAILY 04/22/23 09/05/23 aspirin 81 mg chewable tablet 81 mg PO DAILY 05/08/23 09/05/23 carvedilol 25 mg tablet 25 mg PO BID 05/29/23 09/05/23 levothyroxine 25 mcg tablet 25 mcg PO DAILY 05/29/23 09/05/23 insulin aspart U-100 100 unit/mL 10 unit SQ QPMWITHMEAL 06/24/23 09/05/23 (3 mL) subcutaneous pen (Novolog FlexPen U-100 Insulin aspart) Previous Rx's ?Medication ?Instructions ?Recorded insulin glargine 100 unit/mL (3 50 unit (0.5 mL) SQ DAILY 30 days 06/02/23 mL) subcutaneous pen (Lantus #15 mL Solostar U-100 Insulin) hydrocodone 5 mg-acetaminophen 325 1 tab PO BIDP PRN Pain, Moderate 07/04/23 mg tablet #60 tabs gabapentin 400 mg capsule See Rx Instructions .Route 07/10/23 .COMPLEX #180 caps carbidopa 25 mg-levodopa 100 mg See Rx Instructions .Route 08/14/23 tablet .COMPLEX #360 tabs allopurinol 300 mg tablet See Rx Instructions .Route 08/15/23 .COMPLEX #90 tabs levothyroxine 25 mcg tablet See Rx Instructions .Route 08/15/23 .COMPLEX #90 tabs losartan 100 mg tablet See Rx Instructions .Route 08/15/23 .COMPLEX #90 tabs omeprazole 20 mg capsule,delayed See Rx Instructions .Route 08/20/23 release .COMPLEX #90 caps quetiapine 100 mg tablet See Rx Instructions .Route 08/20/23 .COMPLEX #90 tabs trazodone 50 mg tablet See Rx Instructions .Route 08/20/23 .COMPLEX #90 tabs Allergies Allergy/AdvReac Type Severity Reaction Status Date / Time No Known Allergies Allergy Verified 03/06/23 14:00 [facility] Disclaimer: The information contained in this section may have been updated after the patient was seen, as this information can be updated by other users. Medical History GERD (gastroesophageal reflux disease) Gout Insomnia CKD (chronic kidney disease) Decreased mobility History of osteomyelitis Osteomyelitis Surgical History History of amputation of toe History of colonoscopy History of laparoscopic cholecystectomy Family History Other No significant family history Social History Smoking Status: Former smoker tobacco type: cigarettes packs per day: 3 alcohol intake: never substance use type: denies use current occupational status: unemployed Travel in the last 8 weeks: None household members: family housing: house number of children: 1 caffeine: Yes ROS Obtained: Yes All systems reviewed & no additional complaints except as documented Physical Exam General General appearance: alert and in no apparent distress Head Head exam: atraumatic and normocephalic Eye Eye exam: Present normal appearance, PERRL and EOMI ENT ENT exam: Present normal exam, normal oropharynx, mucous membranes moist and normal external ear exam Neck Neck exam: Present normal inspection, full ROM and trachea midline; Absent tenderness Chest Chest inspection: Present normal inspection and symmetric chest wall rise; Absent tenderness Respiratory Respiratory exam: Present normal lung sounds bilaterally; Absent respiratory distress, wheezes, stridor or accessory muscle use Cardiovascular Cardiovascular exam: Present regular rate and normal rhythm Abdominal Exam Abdominal exam: Present soft; Absent distention, tenderness or guarding Extremities Exam Extremities exam: Present normal inspection, full ROM and normal capillary refill; Absent tenderness or edema Back Exam Back exam: Present normal inspection and full ROM; Absent tenderness Neurological Exam Neurological exam: Present alert, oriented X3, CN II-XII intact and normal gait; Absent motor sensory deficit Psychiatric Psychiatric exam: Present normal affect and normal mood Skin Skin exam: Present warm and dry Medical Decision Making Medical Records Medical records reviewed: Yes I reviewed the patient's medical records. Simone Inquiry Pt receiving controlled substance: No Vital Signs: 09/05/23 17:11 09/05/23 18:00 09/05/23 18:30 Temperature 99.9 F H Temperature Source Oral Pulse Rate 94 H Pulse Rate [Left Radial] 74 Respiratory Rate 15 17 13 Blood Pressure 184/93 H 174/92 H Blood Pressure [Right Arm] 161/92 H Blood Pressure Mean [Right Arm] 115 Blood Pressure Source Blood Pressure Position 02 Sat by Pulse Oximetry 96 95 Oxygen Delivery Method Room Air 09/05/23 19:01 09/05/23 20:42 Temperature 98.0 F Temperature Source Pulse Rate 87 78 Pulse Rate [Left Radial] Respiratory Rate 13 15 Blood Pressure 184/96 H 186/96 H Blood Pressure [Right Arm] Blood Pressure Mean [Right Arm] Blood Pressure Source Automatic Cuff Blood Pressure Position Sitting 02 Sat by Pulse Oximetry 98 Oxygen Delivery Method Room Air Lab Data Lab results reviewed: Yes I reviewed the patient's lab results. Lab Results 09/05/23 17:03: WBC 11.6 H, RBC 3.75 L, Hgb 11.4 L, Hct 34.0 L, MCV 90.8, MCH 30.5, MCHC 33.6, RDW 16.5, Plt Count 161, MPV 7.9, Neut % (Auto) 71.1, Lymph % (Auto) 20.9, [place] % (Auto) 5.7, Eos % (Auto) 1.8, Baso % (Auto) 0.4, Neut # (Auto) 8.2 H, Lymph # (Auto) 2.4, [place] # (Auto) 0.7, Eos # (Auto) 0.2, Baso # (Auto) 0.1, Sodium 139, Potassium 2.3 L*, Chloride 101, Carbon Dioxide 35 H, Anion Gap 5.3, BUN 13, Creatinine 1.70 H, Estimated Creat Clear 43, Estimated GFR 39 L, Est GFR ( Amer) 48 L, Glucose 198 H, Calcium 7.4 L, Phosphorus 3.4, Magnesium 1.0 L, Total Bilirubin 0.5, AST 43, ALT 8 L, Alkaline Phosphatase 121, Total Protein 6.8, Albumin 3.2 L, Globulin 3.6 H, Albumin/Globulin Ratio 0.9 L 09/05/23 18:21: Urine Color Yellow, Urine Appearance Clear, Urine pH 6.5, Ur Specific [place] 1.010, Urine Protein 2+, Urine Glucose (UA) Trace, Urine Ketones Negative, Urine Blood 2+, Urine Nitrate Negative, Urine Bilirubin Negative, Urine Urobilinogen 0.2, Ur Leukocyte Esterase 3+ A, Urine RBC 10-20, Urine WBC 20-50, Ur Squamous Epith Cells Occasional, Urine Bacteria 2+ 09/05/23 20:29: Lactate < 0.5 L 09/05/23 17:03 09/05/23 17:03 Orders (Tests/Meds): ED MEDICATIONS Generic Name Dose Route Start Last Admin Trade Name Freq PRN Reason Stop Dose Admin Acetaminophen 650 mg 09/05/23 20:02 Acetaminophen 325mg Tab PO 10/05/23 20:01 Q4HP PRN Fever or Mild Pain (1-3) Enoxaparin Sodium 40 mg 09/05/23 20:15 09/05/23 22:10 Enoxaparin 40mg/0.4ml Syringe SQ 10/05/23 20:14 40 mg DAILY ESTHER Administration Sodium Chloride 1,000 mls @ 50 mls/hr 09/05/23 20:15 09/05/23 22:41 Sod Chlor 0.9% 1000ml Bag IV 10/05/23 20:14 50 mls/hr .Q20H ESTHER Administration Ceftriaxone Sodium 1 gm/ 50 mls @ 100 mls/hr 09/06/23 20:15 Sodium Chloride IV 09/16/23 20:14 Q24H ESTHER Morphine Sulfate 2 mg 09/05/23 20:02 Morphine 2mg/Ml Syringe IV 10/05/23 20:01 Q2HP PRN Severe Pain (7-10) Nicotine 21 mg 09/05/23 20:07 Nicotine 21mg/24hr Patch TD 10/05/23 20:06 DAILYP PRN Nicotine Cravings Ondansetron HCl 4 mg 09/05/23 20:02 Ondansetron 4mg/2ml Vial IV 10/05/23 20:01 Q8HP PRN Nausea Pantoprazole Sodium 40 mg 09/05/23 20:15 09/05/23 22:10 Pantoprazole 40mg Tablet PO 10/05/23 20:14 40 mg DAILY ESTHER Administration Discontinued Medications Generic Name Dose Route Start Last Admin Trade Name Freq PRN Reason Stop Dose Admin Potassium Chloride/Water 100 mls @ 50 mls/hr 09/05/23 18:07 09/05/23 21:43 Potassium Chloride 20meq/100ml Ivpb IV 09/05/23 22:06 50 mls/hr Q2H ESTHER Administration Lactated Ringer's 1,000 mls @ 999 mls/hr 09/05/23 18:07 09/05/23 19:00 Lactated Ringer's 1000 Ml Bag IV 09/05/23 19:07 999 mls/hr .Q1H1M ONE Administration Magnesium Sulfate 2 gm in 50 mls @ 50 mls/hr 09/05/23 18:07 09/05/23 21:43 Magnesium Sulfate 2gm/50ml Premix IV 09/05/23 19:06 50 mls/hr ONCE ONE Administration Calcium Gluconate/Sodium Chloride 2 gm in 100 mls @ 50 mls/hr 09/05/23 18:37 Calcium Gluconate 2,000mg/100ml Nacl Premix IV 09/05/23 20:36 ONCE ONE Ceftriaxone Sodium 2 gm/ 100 mls @ 200 mls/hr 09/05/23 19:10 09/05/23 22:53 Sodium Chloride IV 09/05/23 19:39 200 mls/hr ONCE ONE Administration Sodium Chloride 1,000 mls @ 999 mls/hr 09/05/23 19:10 Sod Chlor 0.9% 1000ml Bag IV 09/05/23 20:10 .Q1H1M ONE Potassium Chloride 40 meq 09/05/23 18:07 09/05/23 19:00 Potassium Chloride 20meq Tab PO 09/05/23 18:08 40 meq ONCE ONE Administration ORDERS Category Date Time Status Consult to Case Management [CONS] Routine Cons 09/05/23 20:07 Active Complete Blood Count Auto Diff AMLAB Lab 09/06/23 06:00 Ordered Complete Blood Count Auto Diff Stat Lab 09/05/23 17:03 Completed Comprehensive Metabolic Panel AMLAB Lab 09/06/23 06:00 Ordered Comprehensive Metabolic Panel Stat Lab 09/05/23 17:03 Completed Lactic Acid Stat Lab 09/05/23 20:29 Completed Magnesium AMLAB Lab 09/06/23 06:00 Ordered Magnesium Stat Lab 09/05/23 17:03 Completed PHOS [Phosphorous] Stat Lab 09/05/23 17:03 Completed UA [Urinalysis and Microscopic] Stat Lab 09/05/23 18:21 Completed Blood Culture Stat Micro 09/05/23 20:29 Received Urine Culture Stat Micro 09/05/23 18:21 Received ECG Data Tracing #1: I reviewed this ECG and interpreted as documented below: Normal sinus rhythm with a ventricular rate of 95 bpm. PVC noted. No acute ST changes concerning for ischemia. Normal QT interval. ECG initial impression date: 09/05/23 ECG initial impression time: 17:55 Medical Decision Narrative: In summary, this patient is a 78-year-old male presenting to the Emergency Department for evaluation of low potassium. Differential diagnoses considered include but are not limited to hypokalemia, electrolyte derangements, KJ, urinary tract infection, EKG abnormality, dysrhythmia. Ruling out the most morbid conditions drove assessment. It should be noted patient's history includes type 2 diabetes, CKD, hypertension, hyperlipidemia which may or may not be at goal therapy. This complicates all aspects of care by increasing patient's risk for morbidity. I reviewed patient's past medical records and noted previous evaluations for renal issues in the past. On exam, the patient is resting comfortably bed with no concerns or complaints. Vitals are reassuring on cardiac telemetry. Exam is reassuring. Workup included CBC, CMP, magnesium, EKG, and urinalysis urinalysis is concerning for infection. Labs demonstrated hypomagnesemia, hypokalemia, and hypocalcemia, for which replacement was ordered. EKG reassuring. Patient does have leukocytosis and is borderline febrile here. Patient was placed on cardiac monitoring and replacement of potassium in the setting of severe hypokalemia, calcium, and magnesium were ordered. He was given a bolus of IV fluids as well as IV Rocephin to treat urinary tract infection. Ultimately, I feel the patient would benefit from admission for continued monitoring, electrolyte repletion, and treatment of UTI. I had an interactive discussion with the hospitalist who admitted the patient. He is admitted in stable condition. Critical Care Critical Care Time Critical Care Time: Yes Attestation: On 09/05/23, the high probability of a clinically significant, sudden or life threatening deterioration of the following system(s) required my full and direct attention, intervention and personal management. The time I documented below is in addition to time spent performing reported procedures but includes the following listed in this critical care notation. Total Time Total Critical Care Time: 30
[2023-09-05 17:25] LABS: Basophils # 0.1 K/mm3 (0-0.2); Basophils % 0.4 % (0.1-2.0); Eosinophils # 0.2 K/mm3 (0.0-0.4); Eosinophils % 1.8 % (0.1-12.0); Hemoglobin 11.4 g/dL (14.1-18.0); Lymphocytes # 2.4 K/mm3 (0.7-4.5); Lymphocytes % 20.9 % (10-50); Mean Corpuscular HGB Conc 33.6 g/dL (31.8-35.4); Mean Corpuscular Hemoglobin 30.5 pg (27.0-31.2); Mean Corpuscular Volume 90.8 fl (80-94); Mean Platelet Volume 7.9 fl (7.4-10.4); Monocytes # 0.7 K/mm3 (0.1-1.0); Monocytes % 5.7 % (1.7-9.3); Neutrophils # 8.2 K/mm3 (1.8-7.8); Neutrophils % 71.1 % (37.0-80.0); Platelet Count 161 K/mm3 (142-424); Red Blood Count 3.75 M/mm3 (4.60-6.20); Red Cell Distribution Width 16.5 % (11.5-17.5); White Blood Count 11.6 K/mm3 (4.8-10.8)
[2023-09-05 17:36] LABS: Albumin Level 3.2 g/dl (3.5-5.0); Chloride 101 mmol/L (98-107); Sodium 139 mmol/L (136-145)
[2023-09-05 17:39] LABS: Alanine Aminotransferase 8 U/L (12-78); Albumin/Globulin Ratio 0.9 (1.1-1.8); Alkaline Phosphatase 121 U/L (38-126); Anion Gap 5.3 mEq/L (5-15); Aspartate Amino Transferase 43 U/L (17-59); Bilirubin,Total 0.5 mg/dl (0.2-1.3); Blood Urea Nitrogen 13 mg/dl (9-20); Carbon Dioxide 35 mmol/L (22.0-30.0); Creatinine Clearance Estimated 43 mL/min (50-200); Estimated Glomerular Filt Rate 39 ml/min (>60); GFR (African American) 48 ML/MIN (>60); Globulin 3.6 g/dL (1.3-3.2); Total Protein,Serum 6.8 g/dl (6.3-8.2)
[2023-09-05 17:40] LABS: Calcium 7.4 mg/dl (8.4-10.2); Glucose 198 mg/dl (74-100)
--- NOTE | 2023-09-05 17:51 | ECG_ITS ---
APPROVED REPORT Exam: Resting ECG HR:95 bpm ECG Measurements Heart Rate 95 AXES WA 184 P 64 QRSd 113 QRS -19 QT 401 T 6 QTc 454 Conclusion SINUS RHYTHM WITH OCCASIONAL VENTRICULAR PREMATURE COMPLEXES MODERATE INTRAVENTRICULAR CONDUCTION DELAY [110+ ms QRS DURATION] VOLTAGE CRITERIA FOR LVH [MEETS CRITERIA IN ONE OF: R(aVL), S(V1), R(V5), R(V5/V6)+S(V1)] NONSPECIFIC ST & T-WAVE ABNORMALITY ABNORMAL ECG Electronically signed by : SWEETIE OCHOA, 09/06/2023 00:49:24
[2023-09-05 18:06] LABS: Potassium 2.3 mmoL/L (3.5-5.1)
[2023-09-05 18:26] LABS: Phosphorous 3.4 mg/dl (2.5-4.5)
[2023-09-05 18:29] LABS: Microscopic, Urine URINE MICROSCOPIC (MICROSCOPIC)
[2023-09-05 18:41] LABS: Appearance,Urine CLEAR (Clear); Bilirubin,Urine Negative (Negative); Blood, Urine 2+ (Negative); Color,Urine YELLOW (Yellow); Glucose,Urine (UA) TRACE (Negative); Ketones,Urine Negative (Negative); Leukocyte Esterase,Urine 3+ (Negative); Nitrate,Urine Negative (Negative); PH,Urine 6.5 (5.0-8.5); Protein,Urine 2+ (Negative); Urobilinogen,Urine 0.2 EU/dl (0.2)
[2023-09-05 18:57] LABS: Bacteria,Urine 2+ /lpf; Squamous Epithelial Cell,Urine Occasional #/hpf (0-5); WBC,Urine 20-50 #/hpf (0-3)
[2023-09-05] MEDS: LACTATED RINGERS 1000ML 1,000 ML 999 ML IV (19:00)
[2023-09-05] MEDS: KCl 20mEq/100ml 100 ML 50 MEQ IV ×2 (19:00→21:43)
[2023-09-05] MEDS: POTASSIUM CHLORIDE 20MEQ TAB 40 MEQ PO (19:00)
--- NOTE | 2023-09-05 20:04 | PC.NURSE ---
Lab notified for assistance with collecting blood cultures, Ronn reports he will try to assist
--- NOTE | 2023-09-05 20:12 | P.HP_ITS ---
History of Present Illness *Admission Date: 09/05/23 *Reason for visit:: abnormal labs *History of present illness: This is a 78-year-old male with a PMHx of type 2 diabetes with peripheral neuropathy, CKD, Parkinson's disease, hypothyroidism, decreased mobility, hypertension, hyperlipidemia, recurrent UTIs, and decreased mobility presenting to the emergency department for evaluation of abnormal lab. patient was recent treated for UTI, and did a routine lab work done at the [place], and they advised him to go to ED for evaluation of critical low potassium. He states that his legs feel like Jell-O today and he has been a little bit generally weak, but otherwise has been in his usual state of health with no other concerns or complaints. No fevers, chills, chest pain, shortness of breath, abdominal pain, nausea, vomiting, changes in bowel movements, or other concerns. He reports th at he chronically has issues with his potassium and has had to get potassium in the past. Patient arrives by EMS who noted he was stable en route. Admitted for further work up. [facility] Disclaimer: The information contained in this section may have been updated after the patient was seen, as this information can be updated by other users. Medical History GERD (gastroesophageal reflux disease) Gout Insomnia CKD (chronic kidney disease) Decreased mobility History of osteomyelitis Osteomyelitis Surgical History History of amputation of toe History of colonoscopy History of laparoscopic cholecystectomy Family History Other No significant family history Social History Smoking Status: Former smoker tobacco type: cigarettes packs per day: 3 alcohol intake: never substance use type: denies use current occupational status: unemployed Travel in the last 8 weeks: None household members: family housing: house number of children: 1 caffeine: Yes Review of Systems Review of Systems Review of systems:: pertinent systems reviewed and negative unless documented below Meds Home Medications and Allergies Home Medications ?Medication ?Instructions ?Recorded ?Confirmed ?Type atorvastatin 40 mg tablet 40 mg PO HS 04/22/23 09/05/23 History paroxetine HCl 40 mg tablet 40 mg PO DAILY 04/22/23 09/05/23 History aspirin 81 mg chewable tablet 81 mg PO DAILY 05/08/23 09/05/23 History carvedilol 25 mg tablet 25 mg PO BID 05/29/23 09/05/23 History levothyroxine 25 mcg tablet 25 mcg PO DAILYDM 05/29/23 09/06/23 History insulin glargine 100 unit/mL (3 50 unit (0.5 mL) SQ DAILY 30 days 06/02/23 09/05/23 Rx mL) subcutaneous pen (Lantus #15 mL Solostar U-100 Insulin) insulin aspart U-100 100 unit/mL 10 unit SQ QPMWITHMEAL 06/24/23 09/05/23 History (3 mL) subcutaneous pen (Novolog FlexPen U-100 Insulin aspart) hydrocodone 5 mg-acetaminophen 325 1 tab PO BIDP PRN Pain, Moderate 07/04/23 09/05/23 Rx mg tablet #60 tabs allopurinol 300 mg tablet 300 mg PO DAILY 09/06/23 09/06/23 History carbidopa 25 mg-levodopa 100 mg 1 tab PO QID 09/06/23 09/06/23 History tablet gabapentin 400 mg capsule 400 mg PO BIDP PRN Neuropathic pain 09/06/23 09/06/23 History losartan 100 mg tablet 100 mg PO DAILY 09/06/23 09/06/23 History omeprazole 20 mg capsule,delayed 20 mg PO BID 09/06/23 09/06/23 History release quetiapine 100 mg tablet 100 mg PO HS 09/06/23 09/06/23 History trazodone 50 mg tablet 50 mg PO HS 09/06/23 09/06/23 History New Prescriptions to Start Prescriptions: Allergies Allergy/AdvReac Type Severity Reaction Status Date / Time No Known Allergies Allergy Verified 03/06/23 14:00 Exam Data for Last 24 hours Vital signs and Labs for Last 24 Hours: Temp Pulse Resp BP Pulse Ox O2 Del Method 99.9 F H 87 13 184/96 H 98 Room Air 09/05/23 17:11 09/05/23 19:01 09/05/23 19:01 09/05/23 19:01 09/05/23 19:09/05/23 17:11 Laboratory Results - last 24 hr 09/05/23 17:03: WBC 11.6 H, RBC 3.75 L, Hgb 11.4 L, Hct 34.0 L, MCV 90.8, MCH 30.5, MCHC 33.6, RDW 16.5, Plt Count 161, MPV 7.9, Neut % (Auto) 71.1, Lymph % (Auto) 20.9, [place] % (Auto) 5.7, Eos % (Auto) 1.8, Baso % (Auto) 0.4, Neut # (Auto) 8.2 H, Lymph # (Auto) 2.4, [place] # (Auto) 0.7, Eos # (Auto) 0.2, Baso # (Auto) 0.1, Sodium 139, Potassium 2.3 L*, Chloride 101, Carbon Dioxide 35 H, Anion Gap 5.3, BUN 13, Creatinine 1.70 H, Estimated Creat Clear 43, Estimated GFR 39 L, Est GFR ( Amer) 48 L, Glucose 198 H, Calcium 7.4 L, Phosphorus 3.4, Magnesium 1.0 L, Total Bilirubin 0.5, AST 43, ALT 8 L, Alkaline Phosphatase 121, Total Protein 6.8, Albumin 3.2 L, Globulin 3.6 H, Albumin/Globulin Ratio 0.9 L 09/05/23 18:21: Urine Color Yellow, Urine Appearance Clear, Urine pH 6.5, Ur Specific [place] 1.010, Urine Protein 2+, Urine Glucose (UA) Trace, Urine K etones Negative, Urine Blood 2+, Urine Nitrate Negative, Urine Bilirubin Negative, Urine Urobilinogen 0.2, Ur Leukocyte Esterase 3+ A, Urine RBC 10-20, Urine WBC 20-50, Ur Squamous Epith Cells Occasional, Urine Bacteria 2+ I & O for Last 24 hours: Intake & Output 09/02/23 09/03/23 09/04/23 09/05/23 23:59 23:59 23:59 23:59 Weight 83.007 kg Constitutional Constitutional: no acute distress *Routine HEENT Exam Head: Present normocephalic Eye: Present EOMI and PERRL ENT: Present mucous membranes moist *Routine Neck Exam Neck: Present supple; Absent lymphadenopathy *Routine Respiratory Exam Respiratory: Present CTA bilaterally *Routine Cardiovascular Exam Cardiovascular: Present RRR *Routine Abdominal Exam Abdominal: Present soft and normoactive bowel sounds; Absent tenderness *Routine Rectal Exam Rectal:: deferred *Routine Genitalia Exam Genitalia:: deferred *Routine Extremities Exam Extremities: Absent cyanosis, clubbing or edema *Routine Skin Exam Skin: Present warm; Absent rash *Routine Neurological Exam Neurological: Present alert and oriented X3 Assessment and Plan *Assessment and plan (1) Hypokalemia: Status: Acute Category: Medical Code(s): E87.6 - Hypokalemia (2) Cellulitis of both lower extremities: Status: Acute Category: Medical Code(s): L03.115 - Cellulitis of right lower limb; L03.116 - Cellulitis of left lower limb (3) UTI (urinary tract infection): Status: Acute Qualifiers: Hematuria presence: without hematuria Urinary tract infection type: site unspecified Qualified Code(s): N39.0 - Urinary tract infection, site not specified Category: Medical Code(s): N39.0 - Urinary tract infection, site not specified (4) Hypocalcemia: Status: Acute Category: Medical Code(s): E83.51 - Hypocalcemia (5) Hypomagnesemia: Status: Acute Category: Medical Code(s): E83.42 - Hypomagnesemia (6) KJ (acute kidney injury): Status: Acute Category: Medical Code(s): N17.9 - Acute kidney failure, unspecified (7) HLD (hyperlipidemia): Status: Acute Qualifiers: Hyperlipidemia type: unspecified Qualified Code(s): E78.5 - Hyperlipidemia, unspecified Category: Medical Code(s): E78.5 - Hyperlipidemia, unspecified (8) HTN (hypertension): Status: Acute Qualifiers: Hypertension type: unspecified Qualified Code(s): I10 - Essential (primary) hypertension Category: Medical Code(s): I10 - Essential (primary) hypertension (9) Diabetes mellitus: Status: Chronic Qualifiers: Diabetes mellitus complication status: with other specified complication Diabetes mellitus fpc insulin use: with windshield installer use Diabetes mellitus type: type 2 Qualified Code(s): E11.69 - Type 2 diabetes mellitus with other specified complication; Z79.4 - intensive care nurse (current) use of insulin Category: Medical Code(s): E11.9 - Type 2 diabetes mellitus without complications Plan 78-year-old male with a PMHx of type 2 diabetes with peripheral neuropathy, CKD, Parkinson's disease, hypothyroidism, decreased mobility, hypertension, hyperlipidemia, recurrent UTIs, and decreased mobility presenting to the emergency department for evaluation of abnormal labs. On arrival, patient has not concerns or complaints. hemodinamically stable. Workup included CBC, CMP, magnesium, EKG, and UA is concerning for infection. Labs demonstrated hypomagnesemia, hypokalemia, and hypocalcemia, for which replacement was ordered. EKG reassuring. Patient does have leukocytosis and is borderline febrile here. Met sepsis criteria. Bolus was given and started on Rocephin IV. physical exam showed bilateral lower extremity red discoloration and warms to touch. Findings were discussed with ED after admission was requested. Agreed for inpatient management. Plan: -Sepsis without septic shock: Likely secondary to both lower extremity cellulitis Suspected ongoing UTI: Presented with electrolyte imbalance and acute kidney injury: Admit patient for inpatient management dispo MedSurg Started on Rocephin IV 1 g daily Added vancomycin for cellulitis. Pharmacy to dose and monitoring Monitor for sepsis and fever. UA and blood culture pending centrifugal machine tender Replacing electrolyte per protocol Calcium magnesium and potassium Monitor renal output. Caution with nephrotoxic. Watch creatinine Repeat daily lab Encouraged him to increase p.o. intake -Other chronic conditions: hypertension hyperlipidemia insulin-dependent diabetes parkinson gout hypothyroidism Conditions reviewed stable Resume home medication On allopurinol atorvastatin carbidopa carvedilol gabapentin aspart 10 units with meals. Accu-Chek Lantus 50 units at bedtime Synthroid Lovenox for DVT prophylaxis. On Protonix for GI bleed protection Full code business management manager consult to assist with discharge plan. Rounded on patient after nurse practitioner. Personally examined and interviewed patient. Agree with exam findings and care plan as documented. After review of chart, patient had SIRS criteria with tachycardia, but did not have fever or white count meeting SIRS criteria. Patient not septic but did have profound electrolyte disturbances with hypokalemia. Will continue treatment for UTI. Disregard sepsis and cellulitis in plan above.
--- NOTE | 2023-09-05 20:31 | PC.NURSE ---
22G IV placed to LAC
--- NOTE | 2023-09-05 20:32 | PC.NURSE ---
Attempted to call report on patient to second floor, RN on second floor stated she will have to call back to receive report.
[2023-09-05 20:52] LABS: Lactic Acid < 0.5 mmol/L (0.7-2.1)
--- NOTE | 2023-09-05 21:04 | PC.NURSE ---
2039 REPORT RECEIVED FROM SCOTT OSBORN RN/ED NURSE. PATIENT ARRIVED AT 2104 VIA W/C.
--- NOTE | 2023-09-05 21:06 | PC.NURSE ---
Patient arrived to floor via wheelchair from ED at 21:04.
[2023-09-05] MEDS: MAGNESIUM SULFATE IN WATER 2 GM/50 ML PIGGYBACK IV (21:43)
[2023-09-05 22:04] LABS: POC Glucose,Bedside 174 (70-110)
[2023-09-05] MEDS: PANTOPRAZOLE 40MG TABLET 40 MG PO (22:10)
[2023-09-05] MEDS: ENOXAPARIN 40MG/0.4ML SYRINGE 40 MG SQ (22:10)
[2023-09-05] MEDS: 0.9 % SODIUM CHLORIDE 1000ML 1,000 ML 50 ML IV (22:41)
[2023-09-05] MEDS: CEFTRIAXONE SODIUM 2 GM in 0.9 % SODIUM CHLORIDE 100 ML IV (22:53)
[2023-09-05] MEDS: CALCIUM GLUC IN NACL, ISO-OSM 2 GM/100 ML BAG IV (23:42)
[2023-09-05] MEDS: 0.9 % SODIUM CHLORIDE 1000ML 1,000 ML 999 ML IV (23:42)
[2023-09-06] VITALS (8 sets, daily range): BP systolic 156–193; BP diastolic 73–94; PULSE 60–85; RESP 16–19; TEMP 36.7–37.7; O2SAT 93–96; BMI 25.7
[2023-09-06] MEDS: VANCOMYCIN CONSULT REQUEST 1 EACH NOTAPPLIC (00:19)
[2023-09-06] MEDS: VANCOMYCIN/WATER FOR INJ (PEG) 1.5 GM/300 ML PIGGYBACK IV (00:23)
--- NOTE | 2023-09-06 01:08 | PC.NURSE ---
BP 186/96. E EDE SÁNCHEZ NOTIFIED. STOP IVFs FOR NOW.
[2023-09-06] MEDS: humaLOG 100 UNITS/ML 10ML VIAL (SSI) SQ ×2 (05:12→11:44)
[2023-09-06 05:28] LABS: POC Glucose,Bedside 183 (70-110)
--- NOTE | 2023-09-06 05:53 | PC.NURSE ---
RESTING IN BED WITH HOB ELEVATED 30 DEGREES. PUREWICK IN USE DUE TO INCONTINECE OF LARGE AMTS OF URINE. NSR ON TELE. BP CONTINUES TO BE ELEVATED. REPORTED TO Venecia SÁNCHEZ. NO NEW ORDERS AT THIS TIME.
[2023-09-06 07:00] LABS: Alanine Aminotransferase 13 U/L (12-78); Albumin/Globulin Ratio 0.8 (1.1-1.8); Alkaline Phosphatase 118 U/L (38-126); Anion Gap 6.4 mEq/L (5-15); Aspartate Amino Transferase 38 U/L (17-59); Bilirubin,Total 0.5 mg/dl (0.2-1.3); Blood Urea Nitrogen 13 mg/dl (9-20); Calcium 7.5 mg/dl (8.4-10.2); Carbon Dioxide 37 mmol/L (22.0-30.0); Chloride 104 mmol/L (98-107); Creatinine Clearance Estimated 44 mL/min (50-200); Estimated Glomerular Filt Rate 39 ml/min (>60); GFR (African American) 48 ML/MIN (>60); Globulin 3.8 g/dL (1.3-3.2); Glucose 169 mg/dl (74-100); Magnesium 1.4 mg/dl (1.6-2.3); Sodium 145 mmol/L (136-145); Total Protein,Serum 6.8 g/dl (6.3-8.2)
[2023-09-06 07:02] LABS: Potassium 2.4 mmoL/L (3.5-5.1)
[2023-09-06 07:04] LABS: Basophils # 0.1 K/mm3 (0-0.2); Basophils % 0.5 % (0.1-2.0); Eosinophils # 0.2 K/mm3 (0.0-0.4); Eosinophils % 1.4 % (0.1-12.0); Hematocrit 36.9 % (42.0-52.0); Hemoglobin 11.9 g/dL (14.1-18.0); Lymphocytes # 0.8 K/mm3 (0.7-4.5); Lymphocytes % 6.9 % (10-50); Mean Corpuscular HGB Conc 32.2 g/dL (31.8-35.4); Mean Corpuscular Hemoglobin 29.5 pg (27.0-31.2); Mean Corpuscular Volume 91.6 fl (80-94); Mean Platelet Volume 8.1 fl (7.4-10.4); Monocytes # 0.7 K/mm3 (0.1-1.0); Monocytes % 6.3 % (1.7-9.3); Neutrophils # 9.4 K/mm3 (1.8-7.8); Neutrophils % 84.9 % (37.0-80.0); Platelet Count 181 K/mm3 (142-424); Red Blood Count 4.03 M/mm3 (4.60-6.20); Red Cell Distribution Width 16.6 % (11.5-17.5)
--- OUTSIDE RECORDS SUMMARY | 2023-09-06 07:08 | XMS_ITS | Clinical Summary ---
Author Organization [facility] Address [address] [place] [address] Phone Care Team Providers Care Invasive Physician Name Role Phone Unavailable Unavailable Conditions or Problems No information available. Medications No information available. Medications Administered No information available. Allergies, Adverse Reactions, Alerts No information available. Results No information available. Plan of Care No information available. Procedures No information available. Vital Signs No information available. Immunizations No information available. Advance Directives No information available.
--- OUTSIDE RECORDS SUMMARY | 2023-09-06 07:08 | XMS_ITS | Continuity of Care Document ---
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 Name Role Phone Erasmo Lizama MD Unavailable Unavailable Allergies, Adverse Reactions, Alerts Substance Reaction Status Criticality No Known Allergies Active No Inform ation Medications Medication Instructions Dosage Effective Dates (start - stop) Status Comments azithromycin 250 mg tablet take 2 tablet [...] route every day 50 MG - Active clotrimazole-betamet hasone 1 %-0.05 % topical cream apply by topical route 2 times every day for 2 weeks to the affected and surrounding areas of skin in the morning and evening 0.00 - Active Aspirin Low-Strength 81 mg chewable tablet chew 1 tablet by oral route every day - Active Naprosyn 375 mg tablet take 1 tablet by oral route 2 times every day with food - Active hydrocodone 7.5 mg-acetaminophen 325 mg tablet take 1 tablet by oral route every 6 hours as needed for pain 1.00 tablet - Active acetaminophen 300 mg-codeine 30 mg tablet take 1 tablet by oral route every 6 hours as needed 1.00 tablet - Active clindamycin 300 mg capsule take 1 capsule by oral route 3 times every day 300 MG - Active lidocaine 5 % (700 mg/patch) adhesive patch apply 1 patch by transdermal route every day 1 patch - Active ZOSTAVAX (PF) 19,400 unit subcutaneous suspension - Active testosterone cypionate 200 mg/mL intramuscular oil inject 0.25 milliliter by intramuscular route every 4 weeks 50 MG - Active lamotrigine 100 mg tablet take 3 Tablet by oral route every bedtime 300 MG - Active tramadol 50 mg tablet take 1 tablet by oral route every 6 hours as needed 50 MG - Active zolpidem 10 mg tablet take 1 tablet by oral route every day at bedtime 10 MG - Active carisoprodol 350 mg tablet take 1 tablet by oral route every day and at bedtime 350 MG - Active Prevalite 4 gram powder for susp in a packet take 1 packet by oral route every day dissolved in 2 to 6 ounces of water or noncarbonated beverage before meals 4 G - Active omeprazole 20 mg capsule,delayed release take 1 capsule by oral route every day 20 MG - Active Novolog Flexpen 100 unit/mL subcutaneous inject by subcutaneous route as per insulin sliding scale protocol - Active doxazosin 4 mg tablet take 1 tablet by oral route every day 4 MG - Active Detrol LA 4 mg capsule,extended release take 1 capsule by oral route every day 4 MG - Active FELODIPINE ER (unknown strength) take 1 tablet by oral route every day Not Available - Active LOVASTATIN (unknown strength) take 1 tablet by oral route every day Not Available - Active allopurinol 100 mg tablet take 1 tablet by oral route 2 times every day 100 MG - Active lisinopril 40 mg tablet take 1 Tablet by oral route every day 40 MG - Active Cymbalta 60 mg capsule,delayed release take 1 capsule by oral route every day 60 MG - Active metformin 1,000 mg tablet take 1 tablet by oral route 2 times every day 1000 MG - Active Procedures Procedure Date REFRACTION EYE EXAM & TREATMENT EYE EXAM & TREATMENT REFRACTION EYE EXAM, NEW PATIENT REFRACTION Advance Directives Directive Yes / No Effective Date File Name No Information Encounters Encounter Description Practice Location Reason(s) For Visit Diagnoses Date Provider Providers Copied on Encounter [facility] , [address], [place], [address], [place] tel:[phone] [facility] No Information 4 Alda Zimmerman. [address] [place] [address], [address]. tel: [phone] [facility] , [address] [place] [address], [facility], tel:[phone] [facility] diabetes (chief complaint) Cataract (chief complaint) Diabetes with ophthalmic manifestations, type II or unspecified type, uncontrolledMild nonproliferative diabetic retinopathySenile nuclear sclerosisVitreous degenerationMacul ar puckering of retina 4 Alda Zimmerman. [address] [place] [address], [address]. tel: [phone] [facility] , [address] [place] [address], [facility], tel:[phone] [facility] Diabetes Mellitus, Adult Onset, UncontrolledSenil e nuclear sclerosisVitreous degeneration 3 Alda Zimmerman. [address] [place] [address], [facility]. tel: [phone] [facility] , [address] [place] [address], [facility], [place] tel:[phone] [facility] No Information 1 Alda Zimmerman. [address] [place] [address], [facility]. tel: [phone] Referring Provider: MELLISA Joe, [address] [place] [address] [address], [place], [address]. tel:[phone] Family History Family Member Type Diagnosis Age [...] today. Related to Senile nuclear sclerosis - Diabetes type II: mild nonproliferative diabetic [...] OD. Related to Mild nonproliferative diabetic retinopathy Vitreous Detachment OD - There is no [...]
--- NOTE | 2023-09-06 07:09 | PC.NURSE ---
critical lab andraeiun 2.4 reported by lab and reported to Venecia SÁNCHEZ. Order to give potassium 40 meq po x 1 dose. passed on to dayshift nurse.
--- NOTE | 2023-09-06 07:50 | EXP.PHA.CONS ---
Pharmacy Consult Date: 09/06/23 Time: 07:50 Referring provider: BERNARDINO Reason for Consult:: VANCOMYCIN DOSING Allergies Allergy/AdvReac Type Severity Reaction Status Date / Time No Known Allergies Allergy Verified 03/06/23 14:00 Home Medications ?Medication ?Instructions ?Recorded ?Confirmed ?Type atorvastatin 40 mg tablet 40 mg PO HS 04/22/23 09/05/23 History paroxetine HCl 40 mg tablet 40 mg PO DAILY 04/22/23 09/05/23 History aspirin 81 mg chewable tablet 81 mg PO DAILY 05/08/23 09/05/23 History carvedilol 25 mg tablet 25 mg PO BID 05/29/23 09/05/23 History levothyroxine 25 mcg tablet 25 mcg PO DAILY 05/29/23 09/05/23 History insulin glargine 100 unit/mL (3 50 unit (0.5 mL) SQ DAILY 30 days 06/02/23 09/05/23 Rx mL) subcutaneous pen (Lantus #15 mL Solostar U-100 Insulin) insulin aspart U-100 100 unit/mL 10 unit SQ QPMWITHMEAL 06/24/23 09/05/23 History (3 mL) subcutaneous pen (Novolog FlexPen U-100 Insulin aspart) hydrocodone 5 mg-acetaminophen 325 1 tab PO BIDP PRN Pain, Moderate 07/04/23 09/05/23 Rx mg tablet #60 tabs gabapentin 400 mg capsule See Rx Instructions .Route 07/10/23 09/05/23 Rx .COMPLEX #180 caps carbidopa 25 mg-levodopa 100 mg See Rx Instructions .Route 08/14/23 09/05/23 Rx tablet .COMPLEX #360 tabs allopurinol 300 mg tablet See Rx Instructions .Route 08/15/23 09/05/23 Rx .COMPLEX #90 tabs levothyroxine 25 mcg tablet See Rx Instructions .Route 08/15/23 Rx .COMPLEX #90 tabs losartan 100 mg tablet See Rx Instructions .Route 08/15/23 09/05/23 Rx .COMPLEX #90 tabs omeprazole 20 mg capsule,delayed See Rx Instructions .Route 08/20/23 09/05/23 Rx release .COMPLEX #90 caps quetiapine 100 mg tablet See Rx Instructions .Route 08/20/23 09/05/23 Rx .COMPLEX #90 tabs trazodone 50 mg tablet See Rx Instructions .Route 08/20/23 09/05/23 Rx .COMPLEX #90 tabs New Prescriptions to Start Prescriptions: Height: 1.83 m Weight: 86.183 kg Laboratory Results:: Laboratory Results - last 24 hr 09/05/23 17:03: WBC 11.6 H, RBC 3.75 L, Hgb 11.4 L, Hct 34.0 L, MCV 90.8, MCH 30.5, MCHC 33.6, RDW 16.5, Plt Count 161, MPV 7.9, Neut % (Auto) 71.1, Lymph % (Auto) 20.9, [place] % (Auto) 5.7, Eos % (Auto) 1.8, Baso % (Auto) 0.4, Neut # (Auto) 8.2 H, Lymph # (Auto) 2.4, [place] # (Auto) 0.7, Eos # (Auto) 0.2, Baso # (Auto) 0.1, Sodium 139, Potassium 2.3 L*, Chloride 101, Carbon Dioxide 35 H, Anion Gap 5.3, BUN 13, Creatinine 1.70 H, Estimated Creat Clear 43, Estimated GFR 39 L, Est GFR ( Amer) 48 L, Glucose 198 H, Calcium 7.4 L, Phosphorus 3.4, Magnesium 1.0 L, Total Bilirubin 0.5, AST 43, ALT 8 L, Alkaline Phosphatase 121, Total Protein 6.8, Albumin 3.2 L, Globulin 3.6 H, Albumin/Globulin Ratio 0.9 L 09/05/23 18:21: Urine Color Yellow, Urine Appearance Clear, Urine pH 6.5, Ur Specific [place] 1.010, Urine Protein 2+, Urine Glucose (UA) Trace, Urine Ketones Negative, Urine Blood 2+, Urine Nitrate Negative, Urine Bilirubin Negative, Urine Urobilinogen 0.2, Ur Leukocyte Esterase 3+ A, Urine RBC 10-20, Urine WBC 20-50, Ur Squamous Epith Cells Occasional, Urine Bacteria 2+ 09/05/23 20:29: Lactate < 0.5 L 09/05/23 21:57: POC Glucose 174 H 09/06/23 05:01: POC Glucose 183 H 09/06/23 06:30: WBC 11.0 H, RBC 4.03 L, Hgb 11.9 L, Hct 36.9 L, MCV 91.6, MCH 29.5, MCHC 32.2, RDW 16.6, Plt Count 181, MPV 8.1, Neut % (Auto) 84.9 H, Lymph % (Auto) 6.9 L, [place] % (Auto) 6.3, Eos % (Auto) 1.4, Baso % (Auto) 0.5, Neut # (Auto) 9.4 H, Lymph # (Auto) 0.8, [place] # (Auto) 0.7, Eos # (Auto) 0.2, Baso # (Auto) 0.1, Sodium 145, Potassium 2.4 L*, Chloride 104, Carbon Dioxide 37 H, Anion Gap 6.4, BUN 13, Creatinine 1.70 H, Estimated Creat Clear 44, Estimated GFR 39 L, Est GFR ( Amer) 48 L, Glucose 169 H, Calcium 7.5 L, Magnesium 1.4 L D, Total Bilirubin 0.5, AST 38, ALT 13 D, Alkaline Phosphatase 118, Total Protein 6.8, Albumin 3.0 L, Globulin 3.8 H, Albumin/Globulin Ratio 0.8 L Medical History: Medical History (Updated 09/06/23 @ 04:50 by Cortez Pedersen APRN) GERD (gastroesophageal reflux disease) Gout Insomnia CKD (chronic kidney disease) Decreased mobility History of osteomyelitis Osteomyelitis Assessment and Plan Assessment and plan all Dx Assessment and Plan for all problems:: Pharmacokinetic dosing service Objective: Patient: Floor: Age: 78 yo Serum creatinine: 1.70 mg/dL Height: 72.0 Inches Weight (kg): 86.2 Assessment: IBW (kg): 77.60 Dosing wt(kg): 86.2 Estimated Creatinine clearance (ml/min): 39.9 CRCL method: Cockcroft and Gault using ibw(default). Drug selected: Vancomycin Loading dose (mg): Vd (liters): 69.0 (factor used: 0.8 L/kg) Sean (hr-1): 0.038 Half life (hrs): 18.24 CLvanco=?? 2.622 L/hr Recommended dose: 1500 mg Interval: 24 hrs Infusion time (hrs): 2.0 Predicted peak (mcg/mL): 35.0 Predicted trough (mcg/mL): 15.17 Total body weight is being used for vancomycin dosing. Recommendations: Give Vancomycin 1500 mg q 24 hrs with an expected Cpeak of 35.0 mcg/ml and an expected Ctrough of 15.17 mcg/ml AUC 0-24 /CRISTIAN Data: CRISTIAN 0.5 mcg/mL:?? AUC/CRISTIAN:? 1144.2 CRISTIAN 1.0 mcg/mL:?? AUC/CRISTIAN:? 572.1 --------- CRISTIAN 1.5 mcg/mL:?? AUC/CRISTIAN:? 381.4 CRISTIAN 2.0 mcg/mL:?? AUC/CRISTIAN:? 286.0 Thank you for the consult, will continue to follow. -JOEL RAMIREZD
--- NOTE | 2023-09-06 08:21 | HMH.PHAINT1 ---
Pharmacy Intervention Comments: home medication list verified using list from outpatient pharmacy, dr office notes and pt family
[2023-09-06] MEDS: POTASSIUM CHLORIDE 20MEQ TAB 40 MEQ PO ×4 (08:36→20:07)
[2023-09-06] MEDS: PARoxetine 20MG TABLET 40 MG PO (08:37)
[2023-09-06] MEDS: LEVOTHYROXINE 25MCG (0.025MG) TAB 25 MCG PO (08:37)
[2023-09-06] MEDS: MAGNESIUM SULFATE IN WATER 2 GM/50 ML PIGGYBACK IV ×2 (08:37→17:32)
[2023-09-06] MEDS: ASPIRIN 81MG CHEWABLE TABLET 81 MG PO (08:37)
[2023-09-06] MEDS: CARBIDOPA/LEVODOPA 25/100MG TABLET 1 EACH PO ×4 (08:37→20:07)
[2023-09-06] MEDS: PANTOPRAZOLE 40MG TABLET 40 MG PO (08:37)
[2023-09-06] MEDS: ENOXAPARIN 40MG/0.4ML SYRINGE 40 MG SQ (08:37)
[2023-09-06] MEDS: IRBESARTAN 150MG TAB 150 MG PO (08:38)
[2023-09-06] MEDS: MAGNESIUM OXIDE 400MG TABLET 400 MG PO (08:38)
[2023-09-06] MEDS: ALLOPURINOL 300MG TABLET 300 MG PO (08:38)
[2023-09-06] MEDS: CARVEDILOL 25MG TABLET 25 MG PO ×2 (08:38→20:07)
[2023-09-06] MEDS: INSULIN GLARGINE 100 UNITS/ML 3ML FLEXPEN 50 UNIT SQ (08:54)
--- NOTE | 2023-09-06 09:51 | SW/DCPLANNER ---
Addendum entered by Guerline Angel 09/07/23 11:48: Updated patient information/order to resume home health services will be faxed to Brent [facility]/ [facility] today. Patient will discharge home this afternoon. Original Note: I spoke w/ this patient regarding plans once medically stable for discharge. Patient resides at home w/ his daughter and son in law. Per daughter someone is home w/ patient 28/08. PT/OT evaluated patient and recommended placement at time of discharge. Patient is not interested in placement and prefers to return home w/ home health services. Patient's daughter is also agreeable w/ patient returning home and resuming home health. Patient is currently established w/ [facility]. I will update Brent Mirza regarding hospital admission. I will fax information and order to resume home health services at time of discharge. Discharge date is unknown at this time.
[2023-09-06 10:19] LABS: POC Glucose,Bedside 209 (70-110)
--- NOTE | 2023-09-06 10:47 | HMH.PTEV ---
Physical Therapy Evaluation Rehab PT IP Evaluation Start: 09/06/23 09:04 Freq: ONCE Status: Active Protocol: Document 09/06/23 10:00 MANOLO (Rec: 09/06/23 10:47 MANOLO [id number]) Subjective/History History History Patient Tomas Crocker is a 78- year-old male with a PMHx of type 2 diabetes with peripheral neuropathy, CKD, Parkinson's disease, hypothyroidism, decreased mobility, hypertension, hyperlipidemia, and recurrent UTIs. He currently lives with his daughter who works customer experience intern and is not always at home throughout the entire day. Patient normally uses a walker to ambulate throughout the home and community. He stated that he lives in a one level home with not stairs upon entry. Patient has no complaints currently at this time, and was very pleasant during this PT session. Subjective Subjective Patient stated he was in no pain at this time, he also mentioned that he was tired and did not sleep well last night. Patient consented to PT and evaluation took place with no problems at this time, he was pleasant and willing to complete task asked of him. Patient was assisted back into bed comfortably with call park placed in his reach. New diagnosis of cancer in past 12 No months? Rehab PT IP Eval Objective Appearance Patient Behavior Appropriate,Cooperative, Patient Baseline Patient Orientation Person,Place,Name,Age,Birthday Difficulty following instructions moderate Speech Pattern Clear,Soft-Spoken,Patient Baseline Ambulation Patient Able to Ambulate Yes Ambulation Observation IP General Gait Pattern Observation Shuffling Step Ambulation Distance (feet) 10 Ambulation Assistive Device Rolling Walker Ambulation Ability Minimal x 1 (25% assist) Balance Ability to Arise Able, uses arms to help Sitting Balance Leans or slides in chair Standing Balance Unsteady Dynamic Sitting Balance Ability Fair Dynamic Standing Balance Ability Fair Transfers Bed Transfer Ability Minimal x 1 (25% assist) Sit to Stand Bed Transfer Ability Minimal x 2 (25% assist) Rehab PT IP prob,goals,plan Problems Date of Evaluation: 09/06/23 PT IP Problems Bed Mobility,Transfers,Balance Rehab Potential Rehab Potential Good Plan PT Intervention Plan Bed Mobility,Transfers,Balance PT Plan Frequency Daily Duration LOS Discharge Goals Bed Transfer Ability Supervision/Stand by Sit to Stand Chair Transfer Ability Supervision/Stand by Ambulation Assistive Device Rolling Walker Ambulation Distance (feet) 25 Discharge Plan PT Discharge Plan Patient is a good candidate for skilled PT at this time to address his unsteadiness during ambulation and transfers while using a rolling walker. It is recommended that he gets sub acute rehab placement once medically stable. Eval Complexity Eval Charge Codes 63043 - High Complexity PHYSICIAN CERTIFICATION: I certify the specified therapy services for Tomas Crocker are required, authorized, and reviewed every 30 days.
--- NOTE | 2023-09-06 10:50 | HMH.OTEV ---
OT Inpatient Evaluation Rehab OT IP Evaluation Start: 09/06/23 09:04 Freq: ONCE Status: Active Protocol: [facility]23 [facility] (Rec: 09/06/23 10:49 [facility] [id number]) Rehab OT IP Assessment Subjective History Pt oriented x 2 on arrival. Pt agreeable to engage in therapy evaluation; no family present at this time. Pt admitted on 09/05/23 due to abnormal labs History and physical report: This is a 78-year-old male with a PMHx of type 2 diabetes with peripheral neuropathy, CKD, Parkinson's disease, hypothyroidism, decreased mobility, hypertension, hyperlipidemia, recurrent UTIs , and decreased mobility presenting to the emergency department for evaluation of abnormal lab. patient was recent treated for UTI, and did a routine lab work done at the [facility], and they advised him to go to ED for evaluation of critical low potassium. He states that his legs feel like Jell-O today and he has been a little bit generally weak, but otherwise has been in his usual state of health with no other concerns or complaints. No fevers, chills, chest pain , shortness of breath, abdominal pain, nausea, vomiting, changes in bowel movements, or other concerns. He reports that he chronically has issues with his potassium and has had to get potassium in the past. Patient arrives by EMS who noted he was stable en route. Admitted for further work up. Subjective I live with my daughter. Pt reports he lives with his daughter. Pt claims normally he is independent with all ADLs such as dressing, bathing , and feeding. However he is dependent upon daughter for completion of IADLs. Pt does use a rolling walker during functional transfers. Pt's daughter still works multimedia author and is not home with him all the time. Objective Patient Orientation Person,Place,Birthday Right Upper Extremity Gross ROM Min Limitation <25% Left Upper Extremity Gross ROM Min Limitation <25% Shoulder ROM Limitations Muscle Weakness Elbow ROM Limitations Muscle Weakness Wrist Limitations of Range of Motion Muscle Weakness Bed Mobility bed mobility-scooting,bed mobility - supine/sit Assist Level Minimal x 1 (25% assist) Transfer Training Sit/Stand Transfer Assist Level Minimal x 2 (25% assist) Rehab OT IP prob,goals,plan Problems Date of Evaluation: 09/06/23 OT IP Problems Bed Mobility,Transfers,Balance ,Self care,Safety Rehab Potential Rehab Potential Good Equipment Needs Assistive Devices Rolling / Wheeled Walker Plan OT intervention Plan Bed Mobility,Transfers,Balance ,Self care,Safety,Therapeutic Exercise OT Plan Frequency Daily Duration LOS Discharge Goals Bed Mobility Ability Standby Assistance Sit to Stand Chair Transfer Ability Contact Guard/Hand Hold Chair Transfer Ability Contact Guard/Hand Hold Chair Transfer Technique Sit to/from Ambulatory Chair Transfer Assistive Devices Rolling Walker Lower Body Dressing Ability Minimal Assistance Upper Body Dressing Ability Standby Assistance Bathing Ability Minimal Assistance Overall Commode/Toilet Transfer Ability Contact Guard Commode/Toilet Transfer Technique Sit to/from Ambulatory Commode/Toilet Transfer Assistive Grab Bars Devices Oral Care Assist Standby Assistance Decrease in Endurance Yes Discharge Plan OT Discharge Plan Pt will continue to be seen for OT services while at [facility]. Pt presents below baseline at this time with functional transfers and ADL independence . Therapist recommends short term rehab placement at SNF following hospital stay. If patient improves while at [facility], pt could possibly return home with OT HH evaluation if family is able to provide assistance / temporarily. Continued skilled therapy is important in order for patient to improve strength, safety, endurance, functional transfers and ADL independence to reach PLOF. Eval Complexity Eval Charge Codes 69248 - Moderate Complexity PHYSICIAN CERTIFICATION: I certify the specified therapy services for Tomas Crocker are required, authorized, and reviewed every 30 days.
--- NOTE | 2023-09-06 12:09 | PC.NURSE ---
notified nurse about high b/p
--- NOTE | 2023-09-06 12:40 | EXP.ACUTE.PN ---
Subjective *Date: 09/06/23 *Time: 13:32 Interval history: Weak this morning. Afebrile however. Tolerating p.o. intake. Electrolytes improving. No chest pain or shortness of breath. Stable on room air. Urine frankly cloudy/purulent and suction canister. Denies pain or soreness in his legs. Medical Exam Vital signs and Labs for Last 24 Hours: Vital Signs Temp Pulse Pulse Resp BP BP Pulse Ox 09/06/23 12:00 98.8 F 75 18 166/76 H 93 L 09/06/23 10:36 09/06/23 09:07 09/06/23 09:00 09/06/23 08:00 80 09/06/23 07:56 99.0 F 83 19 175/92 H 93 L 09/06/23 06:35 09/06/23 05:00 09/06/23 04:00 99.9 F H 85 18 193/94 H 94 L 09/06/23 04:00 78 09/06/23 03:00 09/06/23 01:00 09/06/23 00:00 84 09/06/23 00:00 98.9 F 77 16 193/77 H 96 09/05/23 23:00 09/05/23 22:19 97 09/05/23 22:14 81 09/05/23 21:05 98.0 F 85 15 186/96 H 97 09/05/23 21:00 09/05/23 20:42 98.0 F 78 15 186/96 H 09/05/23 19:01 87 13 184/96 H 98 09/05/23 18:30 13 174/92 H 09/05/23 18:00 94 H 17 184/93 H 95 09/05/23 17:11 99.9 F H 74 15 161/92 H 96 O2 Del Method 09/06/23 12:00 Room Air 09/06/23 10:36 Room Air 09/06/23 09:07 Room Air 09/06/23 09:00 Room Air 09/06/23 08:00 09/06/23 07:56 Room Air 09/06/23 06:35 Room Air 09/06/23 05:00 Room Air 09/06/23 04:00 Room Air 09/06/23 04:00 09/06/23 03:00 Room Air 09/06/23 01:00 Room Air 09/06/23 00:00 09/06/23 00:00 Room Air 09/05/23 23:00 Room Air 09/05/23 22:19 Room Air 09/05/23 22:14 09/05/23 21:05 Room Air 09/05/23 21:00 Room Air 09/05/23 20:42 Room Air 09/05/23 19:01 09/05/23 18:30 09/05/23 18:00 09/05/23 17:11 Room Air Intake and Output 09/05/23 09/06/23 09/06/23 23:59 07:59 15:59 Intake Total 1100 / 3870 2770 / 2890 120 / 2890 Output Total 0 / 0 800 / 1200 400 / 1200 Balance 1100 / 3870 1970 / 1690 -280 / 1690 Intake: Intake, Oral Amount 220 / 340 120 / 340 Intake, Total IV Amount 1100 / 3650 2550 / 2550 0.9 % Sodium Chloride 1000ML 1, 50 / 50 000 ml @ 50 mls/hr IV .Q20H [facility] Rx#:[id number] 0.9 % Sodium Chloride 1000ML 1, 850 / 850 000 ml @ 999 mls/hr IV .Q1H1M ONE Rx#:[id number] Calcium Gluc in NaCl, Iso-Osm 2 100 / 100 gm In 100 ml @ 50 mls/hr IV ONCE ONE Rx#:[id number] Ceftriaxone Sodium 2 gm In 0.9 100 / 100 % Sodium Chloride 100 ml @ 200 mls/hr IV ONCE ONE Rx#:[id number] KCl 20mEq/100ml 100 ml @ 50 mls 100 / 100 /hr IV Q2H [facility] Rx#:[id number] Lactated Ringers 1000ML 1,000 1000 / 1000 ml @ 999 mls/hr IV .Q1H1M ONE Rx#:[id number] Magnesium Sulfate in Water 2 gm 50 / 50 In 50 ml @ 50 mls/hr IV ONCE ONE Rx#:[id number] Vancomycin/Water For Inj (Peg) 300 / 300 1.5 gm In 300 ml @ 150 mls/hr IV ONCE ONE Rx#:[id number] Output: Output, Urine Amount 0 / 0 800 / 1200 400 / 1200 Other: Number of Unmeasured Voids 1 1 0 Weight 86.183 kg 86.183 kg Patient Weight 09/06/23 23:59 Weight 86.183 kg Laboratory Results - last 24 hr 09/05/23 17:03: WBC 11.6 H, RBC 3.75 L, Hgb 11.4 L, Hct 34.0 L, MCV 90.8, MCH 30.5, MCHC 33.6, RDW 16.5, Plt Count 161, MPV 7.9, Neut % (Auto) 71.1, Lymph % (Auto) 20.9, [place] % (Auto) 5.7, Eos % (Auto) 1.8, Baso % (Auto) 0.4, Neut # (Auto) 8.2 H, Lymph # (Auto) 2.4, [place] # (Auto) 0.7, Eos # (Auto) 0.2, Baso # (Auto) 0.1, Sodium 139, Potassium 2.3 L*, Chloride 101, Carbon Dioxide 35 H, Anion Gap 5.3, BUN 13, Creatinine 1.70 H, Estimated Creat Clear 43, Estimated GFR 39 L, Est GFR ( Amer) 48 L, Glucose 198 H, Calcium 7.4 L, Phosphorus 3.4, Magnesium 1.0 L, Total Bilirubin 0.5, AST 43, ALT 8 L, Alkaline Phosphatase 121, Total Protein 6.8, Albumin 3.2 L, Globulin 3.6 H, Albumin/Globulin Ratio 0.9 L 09/05/23 18:21: Urine Color Yellow, Urine Appearance Clear, Urine pH 6.5, Ur Specific [place] 1.010, Urine Protein 2+, Urine Glucose (UA) Trace, Urine Ketones Negative, Urine Blood 2+, Urine Nitrate Negative, Urine Bilirubin Negative, Urine Urobilinogen 0.2, Ur Leukocyte Esterase 3+ A, Urine RBC 10-20, Urine WBC 20-50, Ur Squamous Epith Cells Occasional, Urine Bacteria 2+ 09/05/23 20:29: Lactate < 0.5 L 09/05/23 21:57: POC Glucose 174 H 09/06/23 05:01: POC Glucose 183 H 09/06/23 06:30: WBC 11.0 H, RBC 4.03 L, Hgb 11.9 L, Hct 36.9 L, MCV 91.6, MCH 29.5, MCHC 32.2, RDW 16.6, Plt Count 181, MPV 8.1, Neut % (Auto) 84.9 H, Lymph % (Auto) 6.9 L, [place] % (Auto) 6.3, Eos % (Auto) 1.4, Baso % (Auto) 0.5, Neut # (Auto) 9.4 H, Lymph # (Auto) 0.8, [place] # (Auto) 0.7, Eos # (Auto) 0.2, Baso # (Auto) 0.1, Sodium 145, Potassium 2.4 L*, Chloride 104, Carbon Dioxide 37 H, Anion Gap 6.4, BUN 13, Creatinine 1.70 H, Estimated Creat Clear 44, Estimated GFR 39 L, Est GFR ( Amer) 48 L, Glucose 169 H, Calcium 7.5 L, Magnesium 1.4 L D, Total Bilirubin 0.5, AST 38, ALT 13 D, Alkaline Phosphatase 118, Total Protein 6.8, Albumin 3.0 L, Globulin 3.8 H, Albumin/Globulin Ratio 0.8 L 09/06/23 08:53: POC Glucose 209 H I & O for Labs for Last 24 Hours: Intake & Output 09/03/23 09/04/23 09/05/23 09/06/23 23:59 23:59 23:59 23:59 Intake Total 1100 / 3870 2890 / 2890 Output Total 0 / 0 1200 / 1200 Balance 1100 / 3870 1690 / 1690 Weight 86.183 kg 86.183 kg Constitutional: Present no acute distress, average body habitus and chronically ill appearing Head: Present atraumatic and normocephalic ENT: Present normal exam Neck: Present normal inspection Respiratory: Present normal respiratory effort; Absent rhonchi, wheezes or crackles Cardiac: Present Reg Rate and Rhythm GI: Present soft and normal bowel sounds; Absent distention or tenderness Extremities: Present normal inspection and full ROM Comment:: Legs warm, chronic stasis changes to skin bilateral shins. No streaking or significant erythema. Skin: Present intact; Absent erythema Neuro: Present Grossly Intact, alert, awake and moves all extremities Comment:: Oriented to self and place. Pleasant, but appears confused Assessment and Plan *Assessment and plan (1) Hypokalemia: Status: Acute Category: Medical Code(s): E87.6 - Hypokalemia (2) UTI (urinary tract infection): Status: Acute Qualifiers: Hematuria presence: without hematuria Urinary tract infection type: site unspecified Qualified Code(s): N39.0 - Urinary tract infection, site not specified Category: Medical Code(s): N39.0 - Urinary tract infection, site not specified (3) Hypocalcemia: Status: Acute Category: Medical Code(s): E83.51 - Hypocalcemia (4) Hypomagnesemia: Status: Acute Category: Medical Code(s): E83.42 - Hypomagnesemia (5) KJ (acute kidney injury): Status: Acute Category: Medical Code(s): N17.9 - Acute kidney failure, unspecified (6) HLD (hyperlipidemia): Status: Acute Qualifiers: Hyperlipidemia type: unspecified Qualified Code(s): E78.5 - Hyperlipidemia, unspecified Category: Medical Code(s): E78.5 - Hyperlipidemia, unspecified (7) HTN (hypertension): Status: Acute Qualifiers: Hypertension type: unspecified Qualified Code(s): I10 - Essential (primary) hypertension Category: Medical Code(s): I10 - Essential (primary) hypertension (8) Diabetes mellitus: Status: Chronic Qualifiers: Diabetes mellitus complication status: with other specified complication Diabetes mellitus [facility] insulin use: with long term care phlebotomist use Diabetes mellitus type: type 2 Qualified Code(s): E11.69 - Type 2 diabetes mellitus with other specified complication; Z79.4 - long term care phlebotomist (current) use of insulin Category: Medical Code(s): E11.9 - Type 2 diabetes mellitus without complications Plan 78-year-old male with a PMHx of type 2 diabetes with peripheral neuropathy, CKD, Parkinson's disease, hypothyroidism, decreased mobility, hypertension, hyperlipidemia, recurrent UTIs, and decreased mobility presenting to the emergency department for evaluation of abnormal labs. On arrival, patient has not concerns or complaints. hemodinamically stable. Workup included CBC, CMP, magnesium, EKG, and UA is concerning for infection. Labs demonstrated hypomagnesemia, hypokalemia, and hypocalcemia, for which replacement was ordered. EKG reassuring. Elevated white count 11.6, temperature of 99.9. SIRS criteria x 1 with tachycardia in the 90s. Received IV antibiotics on admission. Continues to require admission and inpatient management for complicated UTI and severe electrolyte disturbances. Problems addressed as follows: Complicated UTI, pyuria Continues ceftriaxone 1 g daily. Urine culture pending White count 11 today, repeat CBC, CMP, magnesium ordered for the morning Legs appear to be chronic stasis dermatitis, low concern for cellulitis on exam today. Discontinue vancomycin Hypokalemia Hypomagnesemia Hypocalcemia KJ Continue monitoring on telemetry due to electrolyte disturbances. Potassium this morning 2.4, magnesium 1.4, calcium 7.5. Continue aggressive replacement of potassium and magnesium both IV and oral. Repeat CBC, CMP, magnesium ordered for the morning. Repeat CMP and magnesium ordered for this afternoon BUN 13, creatinine 1.7. Baseline appears to be 1.3; caution with nephrotoxins Continue allopurinol 300 mg daily for gout Continue aspirin 81 mg daily and Lipitor 40 mg nightly for CAD/hyperlipidemia Continue carbidopa/levodopa 4 times a day for Parkinson's Continue carvedilol 25 mg twice daily and irbesartan 150 mg daily for hypertension Continue gabapentin 4 mg twice daily as needed for neuropathy/pain Continue hydrocodone 5/325 1 tab twice daily as needed for moderate to severe pain per home regimen Continue levothyroxine 25 mcg daily for hypothyroid Continue Paxil 40 mg daily for mood Continue Seroquel 100 mg nightly for sleep disorder and mood along with trazodone 50 mg nightly Diabetes: A1c pending. Most recent level in May 2009. Continue glargine 50 units daily with sliding scale insulin and fingersticks ACHS Lovenox for DVT prophylaxis On Protonix for GI bleed protection Full code neurology manager consult to assist with discharge plan. If evaluated, would benefit from placement, family plans to take patient home with home health.
--- NOTE | 2023-09-06 14:16 | PC.NURSE ---
Pt. aox4, up with assist times one, pt states he is legally blind, 20g L ac SL, 20G L fa SL, BED alarm active, purewick in place, pt. has been hiving high BP's and . aware. Plan to d/c with home health.
[2023-09-06 15:52] LABS: POC Glucose,Bedside 61 (70-110)
--- NOTE | 2023-09-06 16:06 | PC.NURSE ---
FSBG now 89.
[2023-09-06 16:12] LABS: POC Glucose,Bedside 90 (70-110)
[2023-09-06] MEDS: 0.9 % SODIUM CHLORIDE 1000ML 1,000 ML 50 ML IV (16:12)
[2023-09-06 16:53] LABS: Alanine Aminotransferase 10 U/L (12-78); Albumin Level 3.1 g/dl (3.5-5.0); Albumin/Globulin Ratio 0.8 (1.1-1.8); Alkaline Phosphatase 119 U/L (38-126); Anion Gap 9.3 mEq/L (5-15); Aspartate Amino Transferase 43 U/L (17-59); Bilirubin,Total 0.7 mg/dl (0.2-1.3); Blood Urea Nitrogen 14 mg/dl (9-20); Calcium 7.4 mg/dl (8.4-10.2); Carbon Dioxide 31 mmol/L (22.0-30.0); Chloride 102 mmol/L (98-107); Creatinine Clearance Estimated 44 mL/min (50-200); Estimated Glomerular Filt Rate 39 ml/min (>60); GFR (African American) 48 ML/MIN (>60); Globulin 3.9 g/dL (1.3-3.2); Glucose 106 mg/dl (74-100); Magnesium 1.6 mg/dl (1.6-2.3); Potassium 3.3 mmoL/L (3.5-5.1); Sodium 139 mmol/L (136-145)
[2023-09-06] MEDS: GABAPENTIN 400MG CAPSULE 400 MG PO (20:07)
[2023-09-06] MEDS: QUETIAPINE 100MG TABLET 100 MG PO (20:07)
[2023-09-06] MEDS: ATORVASTATIN 40MG TABLET 40 MG PO (20:07)
[2023-09-06] MEDS: TRAZODONE 50MG TABLET 50 MG PO (20:07)
[2023-09-06] MEDS: CEFTRIAXONE 1 GM 1 GM in 0.9 % SODIUM CHLORIDE 50 ML IV (20:08)
[2023-09-06 20:19] LABS: POC Glucose,Bedside 127 (70-110)
[2023-09-06 22:24] LABS: Hemoglobin A1C 7.2 % (4.0-6.0)
[2023-09-07] VITALS: BP 135/74; PULSE 56; PULSE 63; RESP 16; TEMP 36.8; O2SAT 96
--- NOTE | 2023-09-07 03:49 | PC.NURSE ---
HAS SLEPT WELL THIS SHIFT. NO C/O PAIN OR DISCOMFORT. SHINS REMAIN WARM,RED, TENDER , MILD EDEMA NOTED. . SCABBED AREAS INTACT. NO DRAINAGE NOTED. URINE SWEETIE COLORED. INCONTINENT. PUREWICK IN USE.
[2023-09-07 04:00] VITALS: BP 169/80; PULSE 60; PULSE 62; RESP 16; TEMP 37.1; O2SAT 97; BMI 25.8
[2023-09-07 05:08] LABS: POC Glucose,Bedside 68 (70-110)
[2023-09-07] MEDS: LEVOTHYROXINE 25MCG (0.025MG) TAB 25 MCG PO (06:24)
[2023-09-07 07:03] LABS: Albumin Level 2.6 g/dl (3.5-5.0)
[2023-09-07 07:06] LABS: Alanine Aminotransferase 5 U/L (12-78); Albumin/Globulin Ratio 0.8 (1.1-1.8); Alkaline Phosphatase 113 U/L (38-126); Aspartate Amino Transferase 35 U/L (17-59); Bilirubin,Total 0.4 mg/dl (0.2-1.3); Blood Urea Nitrogen 15 mg/dl (9-20); Calcium 7.3 mg/dl (8.4-10.2); Carbon Dioxide 34 mmol/L (22.0-30.0); Creatinine Clearance Estimated 40 mL/min (50-200); Estimated Glomerular Filt Rate 35 ml/min (>60); GFR (African American) 42 ML/MIN (>60); Globulin 3.3 g/dL (1.3-3.2); Glucose 88 mg/dl (74-100); Magnesium 1.9 mg/dl (1.6-2.3); Total Protein,Serum 5.9 g/dl (6.3-8.2)
[2023-09-07 07:21] LABS: Basophils % 0.5 % (0.1-2.0); Eosinophils # 0.4 K/mm3 (0.0-0.4); Eosinophils % 4.1 % (0.1-12.0); Lymphocytes # 1.5 K/mm3 (0.7-4.5); Lymphocytes % 16.3 % (10-50); Mean Corpuscular HGB Conc 32.5 g/dL (31.8-35.4); Mean Corpuscular Volume 92.3 fl (80-94); Mean Platelet Volume 8.1 fl (7.4-10.4); Monocytes # 0.5 K/mm3 (0.1-1.0); Monocytes % 5.8 % (1.7-9.3); Neutrophils # 6.7 K/mm3 (1.8-7.8); Neutrophils % 73.3 % (37.0-80.0); Platelet Count 160 K/mm3 (142-424); Red Blood Count 3.36 M/mm3 (4.60-6.20); Red Cell Distribution Width 16.4 % (11.5-17.5); White Blood Count 9.2 K/mm3 (4.8-10.8)
[2023-09-07 07:42] LABS: Anion Gap 4.3 mEq/L (5-15); Chloride 105 mmol/L (98-107); Potassium 3.3 mmoL/L (3.5-5.1); Sodium 140 mmol/L (136-145)
[2023-09-07 07:55] LABS: Hemoglobin 10.2 g/dL (14.1-18.0)
[2023-09-07 08:00] VITALS: BP 167/66; PULSE 65; PULSE 91; RESP 17; TEMP 36.6; O2SAT 97
[2023-09-07] MEDS: PARoxetine 20MG TABLET 40 MG PO (08:12)
[2023-09-07] MEDS: ENOXAPARIN 40MG/0.4ML SYRINGE 40 MG SQ (08:12)
[2023-09-07] MEDS: ALLOPURINOL 300MG TABLET 300 MG PO (08:12)
[2023-09-07] MEDS: IRBESARTAN 150MG TAB 150 MG PO (08:12)
[2023-09-07] MEDS: POTASSIUM CHLORIDE 20MEQ TAB 40 MEQ PO ×2 (08:12→12:12)
[2023-09-07] MEDS: ASPIRIN 81MG CHEWABLE TABLET 81 MG PO (08:12)
[2023-09-07] MEDS: CARVEDILOL 25MG TABLET 25 MG PO (08:12)
[2023-09-07] MEDS: PANTOPRAZOLE 40MG TABLET 40 MG PO (08:12)
[2023-09-07] MEDS: CARBIDOPA/LEVODOPA 25/100MG TABLET 1 EACH PO ×2 (08:12→12:12)
[2023-09-07] MEDS: MAGNESIUM OXIDE 400MG TABLET 400 MG PO (08:12)
[2023-09-07 10:11] LABS: POC Glucose,Bedside 185 (70-110)
[2023-09-07] MEDS: humaLOG 100 UNITS/ML 10ML VIAL (SSI) SQ (10:44)
[2023-09-07] MEDS: FLUCONAZOLE IN NACL,ISO-OSM 200 MG/100 ML PIGGYBACK IV (10:44)
--- NOTE | 2023-09-07 11:38 | P.DS_ITS ---
General Admission date:: 09/05/23 Discharge date: 09/07/23 HPI HPI HPI: This is a 78-year-old male with a PMHx of type 2 diabetes with peripheral neuropathy, CKD, Parkinson's disease, hypothyroidism, decreased mobility, hypertension, hyperlipidemia, recurrent UTIs, and decreased mobility presenting to the emergency department for evaluation of abnormal lab. patient was recent treated for UTI, and did a routine lab work done at the [facility], and they advised him to go to ED for evaluation of critical low potassium. He states that his legs feel like Jell-O today and he has been a little bit generally weak, but lisa velazquez has been in his usual state of health with no other concerns or complaints. No fevers, chills, chest pain, shortness of breath, abdominal pain, nausea, vomiting, changes in bowel movements, or other concerns. He reports that he chronically has issues with his potassium and has had to get potassium in the past. Patient arrives by EMS who noted he was stable en route. Admitted for further work up. Hospital Course Hospital Course Hospital Course: 78-year-old male with a PMHx of type 2 diabetes with peripheral neuropathy, CKD, Parkinson's disease, hypothyroidism, decreased mobility, hypertension, hyperlipidemia, recurrent UTIs, and decreased mobility presenting to the emergency department for evaluation of abnormal labs. On arrival, patient has not concerns or complaints. hemodinamically stable. Workup included CBC, CMP, magnesium, EKG, and UA is concerning for infection. Labs demonstrated hypomagnesemia, hypokalemia, and hypocalcemia, for which replacement was ordered. EKG reassuring. Elevated white count 11.6, temperature of 99.9. SIRS criteria x 1 with tachycardia in the 90s. Received IV antibiotics on admission. Urine showed yeast. Evaluated by therapy. Recommended placement but patient would prefer to go home. Will refer to home health. Overall doing better, tolerating oral intake. Labs showing improvement with normalization of electrolytes. Stable to discharge home for further management. Complicated UTI, pyuria Urine grossly abnormal on admission. Started on ceftriaxone. Urine culture grew yeast with continued concern for bacteria. Transition to cefdinir to complete 5-day course. Will initiate Diflucan to complete 14 days orally. White count showed improvement during admission, down to 9.2 on discharge. Overall doing better. Urine showing clearance. Hypokalemia Hypomagnesemia Hypocalcemia KJ Monitored on telemetry due to severe electrolyte disturbances. With significant replacement, showed improvement. Potassium 3.3 on day of discharge, calcium 7.3, magnesium 1.9. Will continue replacement with both magnesium and magnesium at discharge. No adverse events on telemetry. Would benefit from repeat CBC, CMP, magnesium in 1 to 2 weeks when follows up with PCP. -Kidney function acceptable with BUN 15, creatinine 1.9 on day of discharge. This is somewhat above his baseline however he is making adequate urine at this time. Continue allopurinol 300 mg daily for gout Continue aspirin 81 mg daily and Lipitor 40 mg nightly for CAD/hyperlipidemia Continue carbidopa/levodopa 4 times a day for Parkinson's Continue carvedilol 25 mg twice daily and irbesartan 150 mg daily for hypertension Continue gabapentin 4 mg twice daily as needed for neuropathy/pain Continue hydrocodone 5/325 1 tab twice daily as needed for moderate to severe pain per home regimen Continue levothyroxine 25 mcg daily for hypothyroid Continue Paxil 40 mg daily for mood Continue Seroquel 100 mg nightly for sleep disorder and mood along with trazodone 50 mg nightly Diabetes: A1c at goal at 7.2. Continue red hard with insulin glargine 35 units daily and NovoLog 8 units with meals. Fair control during admission with similar course. Glucose 88 on morning of discharge. Total time spent on discharge 32 minutes in counseling, documentation, chart review, and direct care with patient. Exam Data for Last 24 hours Vital signs and Labs for Last 24 Hours: Temp Pulse Resp BP Pulse Ox O2 Del Method 98 F 91 H 17 167/66 H 97 Room Air 09/07/23 08:00 09/07/23 08:00 09/07/23 08:00 09/07/23 08:00 09/07/23 08:00 09/07/23 09:30 Laboratory Results - last 24 hr 09/06/23 06:30: Hemoglobin A1c 7.2 H D 09/06/23 15:42: POC Glucose 61 L 09/06/23 16:05: POC Glucose 90 09/06/23 16:28: Sodium 139, Potassium 3.3 L D, Chloride 102, Carbon Dioxide 31 H , Anion Gap 9.3, BUN 14, Creatinine 1.70 H, Estimated Creat Clear 44, Estimated GFR 39 L, Est GFR ( Amer) 48 L, Glucose 106 H D, Calcium 7.4 L, Magnesium 1.6 D, Total Bilirubin 0.7, AST 43, ALT 10 L, Alkaline Phosphatase 119, Total Protein 7.0, Albumin 3.1 L, Globulin 3.9 H, Albumin/Globulin Ratio 0.8 L 09/06/23 19:59: POC Glucose 127 H 09/07/23 04:58: POC Glucose 68 L 09/07/23 06:25: WBC 9.2, RBC 3.36 L, Hgb 10.2 L D, Hct 31.0 L, MCV 92.3, MCH 30.0, MCHC 32.5, RDW 16.4, Plt Count 160, MPV 8.1, Neut % (Auto) 73.3, Lymph % (Auto) 16.3, Jackson % (Auto) 5.8, Eos % (Auto) 4.1, Baso % (Auto) 0.5, Neut # (Auto) 6.7, Lymph # (Auto) 1.5, Jackson # (Auto) 0.5, Eos # (Auto) 0.4, Baso # (Auto) 0.0, Sodium 140, Potassium 3.3 L, Chloride 105, Carbon Dioxide 34 H, Anion Gap 4.3 L, BUN 15, Creatinine 1.90 H, Estimated Creat Clear 40, Estimated GFR 35 L, Est GFR ( Amer) 42 L, Glucose 88, Calcium 7.3 L, Magnesium 1.9 D, Total Bilirubin 0.4, AST 35, ALT 5 L D, Alkaline Phosphatase 113, Total Protein 5.9 L, Albumin 2.6 L D, Globulin 3.3 H, Albumin/Globulin Ratio 0.8 L 09/07/23 10:04: POC Glucose 185 H I & O for Last 24 hours: Intake & Output 09/04/23 09/05/23 09/06/23 09/07/23 23:59 23:59 23:59 23:59 Intake Total 1100 / 3870 4010 / 4010 1386 / 1386 Output Total 0 / 0 1700 / 1700 1050 / 1050 Balance 1100 / 3870 2310 / 2310 336 / 336 Weight 86.183 kg 86.183 kg 86.545 kg Microbiology Reports for the Last 24 Hours: Microbiology 09/05/23 18:21 Urine,Clean Catch Urine Culture - Final Multiple organisms, suggests contamination. 07/31/24 20:29 Blood Blood Culture - Preliminary NO GROWTH AFTER 24 HOURS 09/05/23 20:29 Blood Blood Culture - Preliminary NO GROWTH AFTER 24 HOURS Constitutional Constitutional: no acute distress, average body habitus, chronically ill appearing and cooperative *Routine HEENT Exam Head: Present normocephalic and atraumatic Eye: Present EOMI and PERRL ENT: Present mucous membranes moist *Routine Neck Exam Neck: Present supple; Absent lymphadenopathy *Routine Respiratory Exam Respiratory: Present CTA bilaterally; Absent rhonchi, wheezes or crackles *Routine Cardiovascular Exam Cardiovascular: Present RRR *Routine Abdominal Exam Abdominal: Present soft, normoactive bowel sounds and tenderness (Suprapubic) *Routine Rectal Exam Patient deferred: visual exam *Routine Exam Patient deferred: penile exam *Routine Extremities Exam Extremities: Absent cyanosis, clubbing or edema *Routine Skin Exam Skin: Present warm; Absent rash *Routine Neurological Exam Neurological: Present alert, oriented X3 and moving all extremities; Absent altered mental status Comments: Rigidity in limbs. Shuffling gait when ambulates. Results Data Completed and Pending Labs on day of discharge: Labs from last 24 hours 09/07/23 09/07/23 09/07/23 10:04 06:25 04:58 WBC 9.2 RBC 3.36 L Hgb 10.2 L D Hct 31.0 L MCV 92.3 MCH 30.0 MCHC 32.5 RDW 16.4 Plt Count 160 MPV 8.1 Neut % (Auto) 73.3 Lymph % (Auto) 16.3 Jackson % (Auto) 5.8 Eos % (Auto) 4.1 Baso % (Auto) 0.5 Neut # (Auto) 6.7 Lymph # (Auto) 1.5 Jackson # (Auto) 0.5 Eos # (Auto) 0.4 Baso # (Auto) 0.0 Sodium 140 Potassium 3.3 L Chloride 105 Carbon Dioxide 34 H Anion Gap 4.3 L BUN 15 Creatinine 1.90 H Estimated Creat Clear 40 Estimated GFR 35 L Est GFR ( Amer) 42 L Glucose 88 POC Glucose 185 H 68 L Hemoglobin A1c Calcium 7.3 L Magnesium 1.9 D Total Bilirubin 0.4 AST 35 ALT 5 L D Alkaline Phosphatase 113 Total Protein 5.9 L Albumin 2.6 L D Globulin 3.3 H Albumin/Globulin Ratio 0.8 L 09/06/23 09/06/23 09/06/23 19:59 16:28 16:05 WBC RBC Hgb Hct MCV MCH MCHC RDW Plt Count MPV Neut % (Auto) Lymph % (Auto) Jackson % (Auto) Eos % (Auto) Baso % (Auto) Neut # (Auto) Lymph # (Auto) Jackson # (Auto) Eos # (Auto) Baso # (Auto) Sodium 139 Potassium 3.3 L D Chloride 102 Carbon Dioxide 31 H Anion Gap 9.3 BUN 14 Creatinine 1.70 H Estimated Creat Clear 44 Estimated GFR 39 L Est GFR ( Amer) 48 L Glucose 106 H D POC Glucose 127 H 90 Hemoglobin A1c Calcium 7.4 L Magnesium 1.6 D Total Bilirubin 0.7 AST 43 ALT 10 L Alkaline Phosphatase 119 Total Protein 7.0 Albumin 3.1 L Globulin 3.9 H Albumin/Globulin Ratio 0.8 L 09/06/23 09/06/23 15:42 06:30 WBC RBC Hgb Hct MCV MCH MCHC RDW Plt Count MPV Neut % (Auto) Lymph % (Auto) Jackson % (Auto) Eos % (Auto) Baso % (Auto) Neut # (Auto) Lymph # (Auto) Jackson # (Auto) Eos # (Auto) Baso # (Auto) Sodium Potassium Chloride Carbon Dioxide Anion Gap BUN Creatinine Estimated Creat Clear Estimated GFR Est GFR ( Amer) Glucose POC Glucose 61 L Hemoglobin A1c 7.2 H D Calcium Magnesium Total Bilirubin AST ALT Alkaline Phosphatase Total Protein Albumin Globulin Albumin/Globulin Ratio Preliminary micro results at discharge 09/05/23 20:29 Blood Culture - Preliminary Blood NO GROWTH AFTER 24 HOURS 09/05/23 20:29 Blood Culture - Preliminary Blood NO GROWTH AFTER 24 HOURS DS: Diagnosis Discharge Diagnosis (1) Hypokalemia: Status: Acute Code(s): E87.6 - Hypokalemia (2) Cellulitis of both lower extremities: Status: Acute Code(s): L03.115 - Cellulitis of right lower limb; L03.116 - Cellulitis of left lower limb (3) UTI (urinary tract infection): Status: Acute Code(s): N39.0 - Urinary tract infection, site not specified Qualifiers: Hematuria presence: without hematuria Urinary tract infection type: site unspecified Qualified Code(s): N39.0 - Urinary tract infection, site not specified (4) Hypocalcemia: Status: Acute Code(s): E83.51 - Hypocalcemia (5) Hypomagnesemia: Status: Acute Code(s): E83.42 - Hypomagnesemia (6) KJ (acute kidney injury): Status: Acute Code(s): N17.9 - Acute kidney failure, unspecified (7) HLD (hyperlipidemia): Status: Acute Code(s): E78.5 - Hyperlipidemia, unspecified Qualifiers: Hyperlipidemia type: unspecified Qualified Code(s): E78.5 - Hyperlipidemia, unspecified (8) HTN (hypertension): Status: Acute Code(s): I10 - Essential (primary) hypertension Qualifiers: Hypertension type: unspecified Qualified Code(s): I10 - Essential (primary) hypertension (9) Diabetes mellitus: Status: Chronic Code(s): E11.9 - Type 2 diabetes mellitus without complications Qualifiers: Diabetes mellitus complication status: with other specified complication Diabetes mellitus intermediate manager insulin use: with intermediate manager use Diabetes mellitus type: type 2 Qualified Code(s): E11.69 - Type 2 diabetes mellitus with other specified complication; 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 Meds Home Medications and Allergies Home Medications ?Medication ?Instructions ?Recorded ?Confirmed ?Type atorvastatin 40 mg tablet 40 mg PO HS 04/22/23 09/05/23 History paroxetine HCl 40 mg tablet 40 mg PO DAILY 04/22/23 09/05/23 History aspirin 81 mg chewable tablet 81 mg PO DAILY 05/08/23 09/05/23 History carvedilol 25 mg tablet 25 mg PO BID 05/29/23 09/05/23 History levothyroxine 25 mcg tablet 25 mcg PO DAILYDM 05/29/23 09/06/23 History hydrocodone 5 mg-acetaminophen 325 1 tab PO BIDP PRN Pain, Moderate 07/04/23 09/05/23 Rx mg tablet #60 tabs allopurinol 300 mg tablet 300 mg PO DAILY 09/06/23 09/06/23 History carbidopa 25 mg-levodopa 100 mg 1 tab PO QID 09/06/23 09/06/23 History tablet gabapentin 400 mg capsule 400 mg PO BIDP PRN Neuropathic pain 09/06/23 09/06/23 History losartan 100 mg tablet 100 mg PO DAILY 09/06/23 09/06/23 History omeprazole 20 mg capsule,delayed 20 mg PO BID 09/06/23 09/06/23 History release quetiapine 100 mg tablet 100 mg PO HS 09/06/23 09/06/23 History trazodone 50 mg tablet 50 mg PO HS 09/06/23 09/06/23 History cefdinir 300 mg capsule 300 mg PO BID 5 days #10 caps 09/07/23 Rx fluconazole 100 mg tablet 100 mg PO DAILY 10 days #10 tabs 09/07/23 Rx (Diflucan) insulin aspart U-100 100 unit/mL 8 unit (0.08 mL) SQ QPMWITHMEAL 09/07/23 09/05/23 Rx (3 mL) subcutaneous pen (Novolog #15 mL FlexPen U-100 Insulin aspart) insulin glargine 100 unit/mL (3 35 unit (0.35 mL) SQ DAILY 30 days 09/07/23 09/05/23 Rx mL) subcutaneous pen (Lantus #15 mL Solostar U-100 Insulin) magnesium oxide 400 mg (241.3 mg 400 mg PO DAILY 30 days #30 tabs 09/07/23 Rx magnesium) tablet potassium chloride 20 mEq 40 meq (2 x 20 mEq) PO DAILY 30 09/07/23 Rx tablet,extended days #60 tabs release(part/cryst) (Klor-Con M) New Prescriptions to Start Prescriptions: Frederick Courtney fluconazole [Diflucan] Frederick Chinchilla magnesium oxide Frederick Chinchilla potassium chloride [Klor-Con M20] Frederick Chinchilla Allergies Allergy/AdvReac Type Severity Reaction Status Date / Time No Known Allergies Allergy Verified 03/06/23 14:00 Discharge Plan Disposition Patient Disposition: Home Health Service Condition: Fair Discharge Order Discharge Orders: Discharge Order (Routine); Ordered 09/07/23 Ordered By: Frederick Chinchilla Follow up Plan Follow up with: Chantel Ruggiero PA [Primary Care Provider] - 09/14/23 8:30 am Prescriptions/Medication Reconciliation: New potassium chloride [Klor-Con M20] 20 mEq Tablet,Er Particles/Crystals 40 meq PO DAILY 30 Days Qty: 60 0RF magnesium oxide 400 mg (241.3 mg magnesium) Tablet 400 mg PO DAILY 30 Days Qty: 30 0RF cefdinir 300 mg capsule 300 mg PO BID 5 Days Qty: 10 0RF fluconazole [Diflucan] 100 mg tablet 100 mg PO DAILY 10 Days Qty: 10 0RF Continued hydrocodone-acetaminophen 5-325 mg tablet 1 tab PO BIDP PRN (Reason: Pain, Moderate) Qty: 60 0RF atorvastatin 40 mg tablet 40 mg PO HS paroxetine HCl 40 mg tablet 40 mg PO DAILY aspirin 81 mg tablet,chewable 81 mg PO DAILY carvedilol 25 mg tablet 25 mg PO BID levothyroxine 25 mcg tablet 25 mcg PO DAILYDM trazodone 50 mg tablet 50 mg PO HS Rx Instructions: TAKE 1 TABLET AT BEDTIME NIGHTLY FOR INSOMNIA gabapentin 400 mg capsule 400 mg PO BIDP PRN (Reason: Neuropathic pain) Rx Instructions: TAKE 1 CAPSULE TWICE A DAY NEEDED FOR PAIN quetiapine 100 mg tablet 100 mg PO HS Rx Instructions: TAKE 1 TABLET AT BEDTIME NIGHTLY FOR MOOD omeprazole 20 mg capsule,delayed release(DR/EC) 20 mg PO BID Rx Instructions: TAKE 1 CAPSULE TWICE A DAY FOR ACID REFLUX allopurinol 300 mg tablet 300 mg PO DAILY Rx Instructions: TAKE 1 TABLET DAILY FOR GOUT carbidopa-levodopa 25-100 mg tablet 1 tab PO QID Rx Instructions: TAKE 1 TABLET FOUR TIMES A DAY FOR TREMORS losartan 100 mg tablet 100 mg PO DAILY Rx Instructions: TAKE 1 TABLET DAILY Changed insulin aspart U-100 [Novolog FlexPen U-100 Insulin] 100 unit/mL (3 mL) insulin pen 8 unit SQ QPMWITHMEAL Qty: 15 0RF Rx Instructions: 10 unit subcutaneously with dinner insulin glargine [Lantus Solostar U-100 Insulin] 100 unit/mL (3 mL) insulin pen 35 unit SQ DAILY 30 Days Qty: 15 0RF Problem Reconciliation Problems Reviewed?: Yes Patient Discharge Instructions ACTIVITY: Continue current activity DIET: continue same diet Patient Instructions: DI for Urinary Tract Infection (UTI) Print Language: Tuvaluan Providers Primary Care Provider: Chantel Ruggiero Admit Provider: Frederick Chinchilla Attending Provider: Frederick Chinchilla
[2023-09-07 12:00] VITALS: PULSE 70
--- NOTE | 2023-09-07 12:44 | PC.NURSE ---
[facility] called and aware of patient's d/c and med amount due for medications.
--- NOTE | 2023-09-12 13:15 | SW/DCPLANNER ---
Follow up phone call attempted x2 w/ no answer at this time.
== END 2023-09-07 16:11 | disposition home health service (06) | DRG 690 ==
LOC: ER 18:09 → 2ND 21:06
PROVIDERS: Nurse Practitioner Family; Admitting Provider Internal Medicine Adolescent Medicine; Emergency Provider Emergency Medicine; PCP Physician Assistant; Visit Provider Internal Medicine Adolescent Medicine
DX: N39.0 Urinary tract infection, site not specified (principal); L03.116 Cellulitis of left lower limb; E87.6 Hypokalemia; E11.40 Type 2 diabetes mellitus with diabetic neuropathy, unspecified; E83.51 Hypocalcemia; E11.22 Type 2 diabetes mellitus with diabetic chronic kidney disease; Z79.4 Long term (current) use of insulin; K21.9 Gastro-esophageal reflux disease without esophagitis; Z87.891 Personal history of nicotine dependence; E83.42 Hypomagnesemia; G20.A1 Parkinson's disease without dyskinesia, without mention of fluctuations
CPT/HCPCS: 36415; 80053; 81001; 82962; 83036; 83605; 83735; 84100; 85025; 87040; 87077; 87086; 87186; 93005; 97110; 97163; 97166; 97530; 99291; J0696; J1650; J3475; J7120

== ENCOUNTER 2023-10-01 21:47 | Emergency (ER) | payer MEDICARE, OTHER, SELFPAY ==
--- NOTE | 2023-10-01 21:44 | HMH.EDGENADL ---
Discharge Plan Disposition Patient Disposition: Home, Self-Care Condition: Good Prescriptions Prescriptions: New cefdinir 300 mg capsule 300 mg PO BID 10 Days Qty: 20 0RF No Action hydrocodone-acetaminophen 5-325 mg tablet 1 tab PO BIDP PRN (Reason: Pain, Moderate) Qty: 60 0RF atorvastatin 40 mg tablet 40 mg PO HS paroxetine HCl 40 mg tablet 40 mg PO DAILY aspirin 81 mg tablet,chewable 81 mg PO DAILY carvedilol 25 mg tablet 25 mg PO BID levothyroxine 25 mcg tablet 25 mcg PO DAILYDM trazodone 50 mg tablet 50 mg PO HS Rx Instructions: TAKE 1 TABLET AT BEDTIME NIGHTLY FOR INSOMNIA gabapentin 400 mg capsule 400 mg PO BIDP PRN (Reason: Neuropathic pain) Rx Instructions: TAKE 1 CAPSULE TWICE A DAY NEEDED FOR PAIN quetiapine 100 mg tablet 100 mg PO HS Rx Instructions: TAKE 1 TABLET AT BEDTIME NIGHTLY FOR MOOD omeprazole 20 mg capsule,delayed release(DR/EC) 20 mg PO BID Rx Instructions: TAKE 1 CAPSULE TWICE A DAY FOR ACID REFLUX allopurinol 300 mg tablet 300 mg PO DAILY Rx Instructions: TAKE 1 TABLET DAILY FOR GOUT carbidopa-levodopa 25-100 mg tablet 1 tab PO QID Rx Instructions: TAKE 1 TABLET FOUR TIMES A DAY FOR TREMORS losartan 100 mg tablet 100 mg PO DAILY Rx Instructions: TAKE 1 TABLET DAILY potassium chloride [Klor-Con M20] 20 mEq Tablet,Er Particles/Crystals 40 meq PO DAILY 30 Days Qty: 60 0RF magnesium oxide 400 mg (241.3 mg magnesium) Tablet 400 mg PO DAILY 30 Days Qty: 30 0RF cefdinir 300 mg capsule 300 mg PO BID 5 Days Qty: 10 0RF fluconazole [Diflucan] 100 mg tablet 100 mg PO DAILY 10 Days Qty: 10 0RF insulin aspart U-100 [Novolog FlexPen U-100 Insulin] 100 unit/mL (3 mL) insulin pen 8 unit SQ QPMWITHMEAL Qty: 15 0RF Rx Instructions: 10 unit subcutaneously with dinner insulin glargine [Lantus Solostar U-100 Insulin] 100 unit/mL (3 mL) insulin pen 35 unit SQ DAILY 30 Days Qty: 15 0RF Referrals Follow up/Referrals: Rick Bee MD [Staff Physician] - See instructions Provider,MD Justo [Primary Care Provider] - See instructions Activity Restrictions/Add. Instructions Additional Instructions/Restrictions: Please follow-up very closely with your primary care provider as well as with a urologist. We have provided you information for Dr. Bee. Return to the emergency department for new or worsening symptoms. coupon and bond collection clerk the prescription for antibiotics and take the full course as prescribed. Continue taking your oral magnesium and potassium at home. make sure that you stay hydrated. Clinical Impressions Clinical Impression: Acute UTI, Hypomagnesemia, Creatinine elevation Instructions Patient Instructions: DI for Urinary Tract Infection (UTI) Print Language Print Language: Iraqi Discharge ED Provider: Chacha Nichols General Adult HPI <JAMILA Venegas - Last Filed: 10/01/23 22:30> General Chief complaint: Recheck/Abnormal Lab/Rx Stated complaint: has no complaints /dtr wants eval'd for confusion Time Seen by Provider: 10/01/23 21:48 History of Present Illness HPI narrative: Patient presents via EMS for a reported history of altered mental status. Patient has a past medical history of hyperlipidemia hypertension diabetes mellitus with diabetic neuropathy and on insulin as well as Parkinson's disease hypothyroidism. Report from EMS states that daughter was concerned because she found him 2 days ago crawling around in his bedroom looking for a bathroom however patient recalls events differently and states that he had fallen in his bedroom and suffered no injury but was trying to get up when she arrived. Patient is very hard of hearing making clear communication difficult. He denies any complaints including chest pain fever chills hemoptysis hematochezia melena nausea vomit diarrhea. Related Data Home Medications
[2023-10-01 21:48] VITALS: BP 175/94; PULSE 88; RESP 16; TEMP 37.1; O2SAT 95; BMI 24.8
--- NOTE | 2023-10-01 21:50 | CT_ITS ---
PROCEDURE INFORMATION: Exam: CT Head Without Contrast Exam date and time: 10/01/2023 10:02 PM Age: 78 years old Clinical indication: Other: Confusion; Additional info: Acute confusion TECHNIQUE: Imaging protocol: Computed tomography of the head without contrast. Radiation optimization: All CT scans at this facility use at least one of these dose optimization techniques: automated exposure control; mA and/or kV adjustment per patient size (includes targeted exams where dose is matched to clinical indication); or iterative reconstruction. COMPARISON: CT HEAD/BRAIN WO CON 05/08/2023 9:14 AM FINDINGS: Brain: There is moderate diffuse cerebral volume loss present. Multiple subcortical and deep hypoattenuating white matter foci are present, likely related to small vessel senescent changes and can also be seen with prior infectious / inflammatory insult, or prior traumatic events. No hyperattenuating foci are identified to suggest acute intracranial hemorrhage. Cerebral ventricles: No ventriculomegaly. Paranasal sinuses: Visualized sinuses are unremarkable. No fluid levels. Mastoid air cells: Visualized mastoid air cells are well aerated. Bones: Unremarkable. No acute fracture. Soft tissues: Unremarkable. IMPRESSION: 1. Multiple subcortical and deep hypoattenuating white matter foci are present, likely related to small vessel senescent changes and can also be seen with prior infectious / inflammatory insult, or prior traumatic events. 2. No hyperattenuating foci are identified to suggest acute intracranial hemorrhage.
--- NOTE | 2023-10-01 21:50 | XR_ITS ---
PROCEDURE INFORMATION: Exam: XR Chest Exam date and time: 10/01/2023 9:46 PM Age: 78 years old Clinical indication: Other: Confusion; Additional info: Acute confusion TECHNIQUE: Imaging protocol: Radiologic exam of the chest. Views: 2 views. COMPARISON: CR XR CHEST PORTABLE PICC PLAC 05/30/2023 1:54 PM FINDINGS: Lungs: Multiple calcified granulomas of the right lower lobe unchanged from prior exam. No consolidations. Pleural spaces: Unremarkable. No pleural effusion. No pneumothorax. Heart/Mediastinum: Unremarkable. No cardiomegaly. Bones/joints: Unremarkable. IMPRESSION: No acute findings.
--- NOTE | 2023-10-01 22:12 | ECG_ITS ---
APPROVED REPORT Exam: Resting ECG HR:85 bpm ECG Measurements Heart Rate 85 AXES MS 163 P 56 QRSd 94 QRS -22 QT 344 T 57 QTc 386 Conclusion SINUS RHYTHM WITH OCCASIONAL VENTRICULAR PREMATURE COMPLEXES BORDERLINE LEFT AXIS DEVIATION [QRS AXIS < -20] BORDERLINE ECG Electronically signed by : SWEETIE OCHOA, 10/02/2023 00:17:15
[2023-10-01 22:20] LABS: Basophils # 0.1 K/mm3 (0-0.2); Basophils % 0.7 % (0.1-2.0); Eosinophils # 0.3 K/mm3 (0.0-0.4); Hematocrit 38.4 % (42.0-52.0); Hemoglobin 12.1 g/dL (14.1-18.0); Lymphocytes # 2.3 K/mm3 (0.7-4.5); Lymphocytes % 21.5 % (10-50); Mean Corpuscular HGB Conc 31.4 g/dL (31.8-35.4); Mean Corpuscular Hemoglobin 30.4 pg (27.0-31.2); Mean Corpuscular Volume 96.8 fl (80-94); Mean Platelet Volume 8.3 fl (7.4-10.4); Monocytes # 0.7 K/mm3 (0.1-1.0); Monocytes % 6.7 % (1.7-9.3); Neutrophils # 7.4 K/mm3 (1.8-7.8); Neutrophils % 68.1 % (37.0-80.0); Platelet Count 225 K/mm3 (142-424); Red Blood Count 3.97 M/mm3 (4.60-6.20); Red Cell Distribution Width 16.3 % (11.5-17.5); White Blood Count 10.8 K/mm3 (4.8-10.8)
[2023-10-01 22:24] LABS: Albumin Level 3.9 g/dl (3.5-5.0); Chloride 106 mmol/L (98-107); Potassium 4.8 mmoL/L (3.5-5.1); Sodium 135 mmol/L (136-145)
[2023-10-01 22:26] LABS: Microscopic, Urine URINE MICROSCOPIC (MICROSCOPIC)
[2023-10-01 22:27] LABS: Alanine Aminotransferase 13 U/L (12-78); Alkaline Phosphatase 110 U/L (38-126); Anion Gap 8.8 mEq/L (5-15); Aspartate Amino Transferase 41 U/L (17-59); Bilirubin,Total 0.4 mg/dl (0.2-1.3); Blood Urea Nitrogen 26 mg/dl (9-20); Calcium 8.8 mg/dl (8.4-10.2); Carbon Dioxide 25 mmol/L (22.0-30.0); Creatinine Clearance Estimated 36 mL/min (50-200); Estimated Glomerular Filt Rate 33 ml/min (>60); GFR (African American) 39 ML/MIN (>60); Globulin 3.9 g/dL (1.3-3.2); Glucose 260 mg/dl (74-100); Magnesium 1.2 mg/dl (1.6-2.3); Total Protein,Serum 7.8 g/dl (6.3-8.2)
[2023-10-01 22:28] LABS: Appearance,Urine CLOUDY (Clear); Bilirubin,Urine Negative (Negative); Blood, Urine 2+ (Negative); Color,Urine YELLOW (Yellow); Glucose,Urine (UA) 1+ (Negative); Ketones,Urine Negative (Negative); Leukocyte Esterase,Urine 3+ (Negative); Nitrate,Urine Negative (Negative); Protein,Urine 2+ (Negative); Specific Gravity, Urine 1.025 (1.005-1.030); Urobilinogen,Urine 0.2 EU/dl (0.2)
[2023-10-01 22:41] LABS: Barbiturates Screen,Urine Negative ng/ml (<200)
[2023-10-01 22:42] LABS: Amphetamine/Metha Screen,Urine Negative ng/ml (<1000); Benzodiazepines Screen,Urine Negative ng/ml (<200)
[2023-10-01 22:43] LABS: Cannabinoid Screen,Urine Negative ng/ml (<50); Cocaine Screen,Urine Negative ng/ml (<300)
[2023-10-01 22:44] LABS: Methadone Screen,Urine Negative ng/ml (<300)
[2023-10-01 22:45] LABS: Opiate Screen,Urine Negative ng/ml (<300); Phencyclidine Screen,Urine Negative ng/ml (<25)
[2023-10-01 22:53] LABS: Bacteria,Urine 3+ /lpf; WBC,Urine TNTC #/hpf (0-3)
[2023-10-02 01:02] VITALS: BP 186/93; PULSE 111; RESP 18; TEMP 36.8; O2SAT 98
[2023-10-02 01:05] VITALS: BP 186/93; PULSE 99; RESP 18; TEMP 36.8; O2SAT 99
== END 2023-10-02 01:14 | disposition home or self-care (01) ==
PROVIDERS: Physician Assistant; Emergency Provider Emergency Medicine
DX: N39.0 Urinary tract infection, site not specified (principal); E83.42 Hypomagnesemia; R79.89 Other specified abnormal findings of blood chemistry; E11.65 Type 2 diabetes mellitus with hyperglycemia; I10 Essential (primary) hypertension; E78.5 Hyperlipidemia, unspecified; E11.40 Type 2 diabetes mellitus with diabetic neuropathy, unspecified; Z79.4 Long term (current) use of insulin; E03.9 Hypothyroidism, unspecified
CPT/HCPCS: 70450; 71046; 80053; 80307; 81001; 83735; 85025; 87086; 93005; 96361; 96365; 99285; J0696; J3475; J7120

== ENCOUNTER 2023-10-27 10:33 | Inpatient (IN) | payer MEDICARE, OTHER, SELFPAY ==
[2023-10-27] VITALS (14 sets, daily range): BP systolic 135–169; BP diastolic 65–82; PULSE 50–62; RESP 12–20; TEMP 36.9–38.8; O2SAT 92–98; BMI 24.4
--- NOTE | 2023-10-27 10:41 | XR_ITS ---
PROCEDURE INFORMATION: Exam: XR Chest Exam date and time: 10/27/2023 10:53 AM Age: 78 years old Clinical indication: Cough and fever; Additional info: Fever, cough TECHNIQUE: Imaging protocol: Radiologic exam of the chest. Views: 1 view. COMPARISON: CR XR CHEST 2V 10/01/2023 9:46 PM FINDINGS: Lungs: Stable calcified granulomas in the right lung. No consolidation. Pleural spaces: Unremarkable. No pleural effusion. No pneumothorax. Heart/Mediastinum: Unremarkable. No cardiomegaly. Bones/joints: Degenerative changes in the glenohumeral joints IMPRESSION: No acute findings.
--- NOTE | 2023-10-27 10:44 | ED_ITS ---
Discharge Plan Disposition Patient Disposition: Admitted Discharge ED Provider: Basilio Gale General Adult HPI General Chief complaint: Weakness Stated complaint: Weakness Time Seen by Provider: 10/27/23 10:40 Mode of Arrival: EMS Source of Information: Patient and EMS Limitations: No Limitations Description of Symptoms (Recalled from ER Triage Doc. by RN): generalized weakness,fever History of Present Illness HPI narrative: This is a 78-year-old man with a history of hypertension, diabetes, hyperlipidemia, prior UTI who presents with generalized weakness. Patient has no complaints, however patient's daughter felt that he appeared generally weak and called EMS for evaluation. Transported to emergency department. No medications given en route. Hemodynamically stable. Patient denies any symptoms such as chest pain, shortness of breath, abdominal pain, nausea/vomiting/diarrhea, dysuria, or frequency. Related Data Home Medications ?Medication ?Instructions ?Recorded ?Confirmed atorvastatin 40 mg tablet 40 mg PO HS 04/22/23 09/05/23 paroxetine HCl 40 mg tablet 40 mg PO DAILY 04/22/23 09/05/23 aspirin 81 mg chewable tablet 81 mg PO DAILY 05/08/23 09/05/23 carvedilol 25 mg tablet 25 mg PO BID 05/29/23 09/05/23 levothyroxine 25 mcg tablet 25 mcg PO DAILYDM 05/29/23 09/06/23 allopurinol 300 mg tablet 300 mg PO DAILY 09/06/23 09/06/23 carbidopa 25 mg-levodopa 100 mg 1 tab PO QID 09/06/23 09/06/23 tablet gabapentin 400 mg capsule 400 mg PO BIDP PRN Neuropathic pain 09/06/23 09/06/23 losartan 100 mg tablet 100 mg PO DAILY 09/06/23 09/06/23 omeprazole 20 mg capsule,delayed 20 mg PO BID 09/06/23 09/06/23 release quetiapine 100 mg tablet 100 mg PO HS 09/06/23 09/06/23 trazodone 50 mg tablet 50 mg PO HS 09/06/23 09/06/23 Previous Rx's ?Medication ?Instructions ?Recorded hydrocodone 5 mg-acetaminophen 325 1 tab PO BIDP PRN Pain, Moderate 07/04/23 mg tablet #60 tabs cefdinir 300 mg capsule 300 mg PO BID 5 days #10 caps 09/07/23 fluconazole 100 mg tablet 100 mg PO DAILY 10 days #10 tabs 09/07/23 (Diflucan) insulin aspart U-100 100 unit/mL 8 unit (0.08 mL) SQ QPMWITHMEAL 09/07/23 (3 mL) subcutaneous pen (Novolog #15 mL FlexPen U-100 Insulin aspart) insulin glargine 100 unit/mL (3 35 unit (0.35 mL) SQ DAILY 30 days 09/07/23 mL) subcutaneous pen (Lantus #15 mL Solostar U-100 Insulin) magnesium oxide 400 mg (241.3 mg 400 mg PO DAILY 30 days #30 tabs 09/07/23 magnesium) tablet potassium chloride 20 mEq 40 meq (2 x 20 mEq) PO DAILY 30 09/07/23 tablet,extended days #60 tabs release(part/cryst) (Klor-Con M) cefdinir 300 mg capsule 300 mg PO BID 10 days #20 caps 10/01/23 Allergies Allergy/AdvReac Type Severity Reaction Status Date / Time No Known Allergies Allergy Verified 03/06/23 14:00 [facility] Disclaimer: The information contained in this section may have been updated after the patient was seen, as this information can be updated by other users. Medical History GERD (gastroesophageal reflux disease) Gout Insomnia CKD (chronic kidney disease) Decreased mobility History of osteomyelitis Osteomyelitis Surgical History History of amputation of toe History of colonoscopy History of laparoscopic cholecystectomy Family History Other No significant family history Social History Smoking Status: Never smoker alcohol intake: never substance use type: denies use current occupational status: unemployed Travel in the last 8 weeks: None household members: family housing: house number of children: 1 caffeine: Yes ROS Obtained: Yes All systems reviewed & no additional complaints except as documented Physical Exam General General appearance: alert and in no apparent distress Eye Eye exam: Present normal appearance, PERRL and EOMI Respiratory Respiratory exam: Present normal lung sounds bilaterally; Absent respiratory distress Cardiovascular Cardiovascular exam: Present regular rate and normal rhythm Abdominal Exam Abdominal exam: Present soft and distention; Absent tenderness, guarding or rebound Extremities Exam Extremities exam: Present normal inspection Neurological Exam Neurological exam: Present alert and oriented X3 Skin Skin exam: Present warm and dry Other Other exam information: Bilateral lower extremity edema, 2+ to the knees Medical Decision Making Medical Records Medical records reviewed: Yes I reviewed the patient's medical records. Screening: Per USPSTF and CDC recommendations, given the prevalence of disease in our region, it is our hospital?s policy to screen for HIV and viral Hepatitis for all patients aged 18 and over and those with ongoing risk factors. Simone Inquiry Pt receiving controlled substance: No Vital Signs: 10/27/23 10:33 10/27/23 10:37 10/27/23 11:00 Temperature 101.8 F H Temperature Source Oral Pulse Rate 60 59 L Pulse Rate [Right] 61 Respiratory Rate 18 18 20 Blood Pressure 135/65 140/67 Blood Pressure [Right Arm] 135/65 Blood Pressure Mean 83 Blood Pressure Mean [Right Arm] 88 Blood Pressure Source Blood Pressure Position 02 Sat by Pulse Oximetry 97 96 96 Oxygen Delivery Method Room Air Room Air 10/27/23 11:29 10/27/23 12:00 10/27/23 12:30 Temperature Temperature Source Pulse Rate 61 60 62 Pulse Rate [Right] Respiratory Rate 18 18 18 Blood Pressure 154/68 H 142/68 H 145/69 H Blood Pressure [Right Arm] Blood Pressure Mean 94 94 Blood Pressure Mean [Right Arm] Blood Pressure Source Blood Pressure Position 02 Sat by Pulse Oximetry 95 96 97 Oxygen Delivery Method Room Air 10/27/23 13:00 10/27/23 13:30 10/27/23 14:00 Temperature Temperature Source Pulse Rate 58 L 58 L 58 L Pulse Rate [Right] Respiratory Rate 18 18 15 Blood Pressure 155/72 H 144/65 H 159/72 H Blood Pressure [Right Arm] Blood Pressure Mean 99 91 87 Blood Pressure Mean [Right Arm] Blood Pressure Source Blood Pressure Position 02 Sat by Pulse Oximetry 92 L 92 L 95 Oxygen Delivery Method Room Air 10/27/23 14:31 10/27/23 14:47 10/27/23 15:01 Temperature 98.4 F Temperature Source Oral Pulse Rate 55 L 56 L 53 L Pulse Rate [Right] Respiratory Rate 13 18 12 Blood Pressure 150/75 H 150/75 H 169/77 H Blood Pressure [Right Arm] Blood Pressure Mean 86 93 Blood Pressure Mean [Right Arm] Blood Pressure Source Automatic Cuff Blood Pressure Position Sitting 02 Sat by Pulse Oximetry 96 98 Oxygen Delivery Method Room Air Room Air Lab Data Lab Results 10/27/23 10:38: WBC 9.3, RBC 3.69 L, Hgb 11.0 L, Hct 34.5 L, MCV 93.5, MCH 29.8, MCHC 31.9, RDW 15.8, Plt Count 168, MPV 7.7, Neut % (Auto) 74.4, Lymph % (Auto) 17.0, [place] % (Auto) 7.8, Eos % (Auto) 0.5, Baso % (Auto) 0.3, Neut # (Auto) 6.9, Lymph # (Auto) 1.6, [place] # (Auto) 0.7, Eos # (Auto) 0.0, Baso # (Auto) 0.0, Sodium 136, Potassium 2.9 L*, Chloride 104, Carbon Dioxide 27, Anion Gap 7.9, BUN 18, Creatinine 2.20 H, Estimated Creat Clear 32, Estimated GFR 29 L, Est GFR ( Amer) 35 L, Glucose 125 H, Calcium 7.4 L, Magnesium 0.7 L, Total Bilirubin 0.6, AST 30, ALT 10 L, Alkaline Phosphatase 99, NT-Pro-B Natriuret Pep 1630 H, Total Protein 6.9, Albumin 3.3 L, Globulin 3.6 H, Albumin/Globulin Ratio 0.9 L 10/27/23 10:41: SARS-CoV-2 (PCR) Not detected, HIV 1&2 Antibody Rapid Nonreactive, Influenza A Untype (PCR) Not detected, Influenza Type B (PCR) Not detected 10/27/23 11:38: Urine Color Yellow, Urine Appearance Clear, Urine pH 6.0, Ur Specific [place] 1.015, Urine Protein 2+ A, Urine Glucose (UA) Negative, Urine Ketones Negative, Urine Blood 2+ A, Urine Nitrate Negative, Urine Bilirubin Negative, Urine Urobilinogen 0.2, Ur Leukocyte Esterase 2+ A, Urine RBC 3-5, Urine WBC 20-50, Ur Squamous Epith Cells 5-10, Urine Bacteria 1+ 10/27/23 10:38 10/27/23 10:38 Orders (Tests/Meds): ED MEDICATIONS Generic Name Dose Route Start Last Admin Trade Name Freq PRN Reason Stop Dose Admin Acetaminophen 650 mg 10/27/23 14:31 Acetaminophen 325mg Tab PO 11/26/23 14:30 Q4HP PRN Fever or Mild Pain (1-3) Insulin Human Lispro 0 unit 10/27/23 16:30 Humalog 100 Units/Ml 10ml Vial (Ssi) SQ 11/26/23 16:29 ACHS ESTHER Protocol Ondansetron HCl 4 mg 10/27/23 14:31 Ondansetron 4mg/2ml Vial IV 11/26/23 14:30 Q8HP PRN Nausea Discontinued Medications Generic Name Dose Route Start Last Admin Trade Name Julian PRN Reason Stop Dose Admin Acetaminophen 1,000 mg 10/27/23 10:40 10/27/23 11:15 Acetaminophen 500mg Tab PO 10/27/23 10:41 1,000 mg ONCE ONE Administration Potassium Chloride/Water 100 mls @ 100 mls/hr 10/27/23 11:30 10/27/23 13:13 Potassium Chloride 10meq/100ml Ivpb IV 10/27/23 14:29 100 mls/hr Q1H ESTHER Administration Magnesium Sulfate 2 gm in 50 mls @ 50 mls/hr 10/27/23 11:56 10/27/23 13:13 Magnesium Sulfate 2gm/50ml Premix IV 10/27/23 12:55 50 mls/hr ONCE ONE Administration Ondansetron HCl 4 mg 10/27/23 14:45 Ondansetron 4mg/2ml Vial IV 10/27/23 14:46 ONCE ONE Sodium Chloride 500 ml 10/27/23 12:43 10/27/23 13:16 Sodium Chloride 0.9% 500ml Bag IV 10/27/23 12:44 500 ml ONCE ONE Administration ORDERS Category Date Time Status XR chest portable Stat Exams 10/27/23 10:41 Completed BNP [NT Pro Brain Natriuretic Pep.] Stat Lab 10/27/23 10:38 Completed Basic Metabolic Panel AMLAB Lab 10/28/23 06:00 Ordered Basic Metabolic Panel AMLAB Lab 10/29/23 06:00 Ordered Basic Metabolic Panel AMLAB Lab 10/30/23 06:00 Ordered Basic Metabolic Panel AMLAB Lab 10/31/23 06:00 Ordered Basic Metabolic Panel AMLAB Lab 11/01/23 06:00 Ordered CBC w/Auto Diff [Complete Blood Count Auto Diff] Stat Lab 10/27/23 10:38 Completed CMP [Comprehensive Metabolic Panel] Stat Lab 10/27/23 10:38 Completed Complete Blood Count Auto Diff AMLAB Lab 10/28/23 06:00 Ordered Complete Blood Count Auto Diff AMLAB Lab 10/29/23 06:00 Ordered Complete Blood Count Auto Diff AMLAB Lab 10/30/23 06:00 Ordered Complete Blood Count Auto Diff AMLAB Lab 10/31/23 06:00 Ordered Complete Blood Count Auto Diff AMLAB Lab 11/01/23 06:00 Ordered HIV (1&2) Antibody Rapid Stat Lab 10/27/23 10:41 Completed Hep C Ab with Reflex to RNA Stat Lab 10/27/23 10:41 Received Magnesium AMLAB Lab 10/28/23 06:00 Ordered Magnesium AMLAB Lab 10/29/23 06:00 Ordered Magnesium AMLAB Lab 10/30/23 06:00 Ordered Magnesium AMLAB Lab 10/31/23 06:00 Ordered Magnesium AMLAB Lab 11/01/23 06:00 Ordered Magnesium Stat Lab 10/27/23 10:38 Completed Rapid PCR Covid and Flu A/B Stat Lab 10/27/23 10:41 Completed Urinalysis and Microscopic Stat Lab 10/27/23 11:38 Completed Urine Culture Stat Micro 10/27/23 11:38 Received Medical Decision Narrative: In summary, this 78-year-old male with a history of diabetes, hypertension, hyperlipidemia, prior UTI presents to the emergency department today with generalized weakness. On initial evaluation patient is hemodynamically stable, nontoxic-appearing, febrile to 101.8 Fahrenheit. Differential diagnosis includes but is not limited to viral illness, pneumonia, UTI, electrolyte abnormality, anemia, CHF. Based on these concerns, I ordered CBC, CMP, viral swab, BNP, chest x-ray, urinalysis. ECG personally interpreted as noted above. Patient received Tylenol 1000 mg for treatment. Labs personally reviewed demonstrate hypokalemia at 2.9 and hypomagnesemia at 0.7. Each of these was repleted via IV. Urinalysis shows possible UTI with 20- 50 white blood cells and 1+ bacteria. Prior data was reviewed and patient had had too numerous to count white blood cells last month with 3+ bacteria and ultimately had a negative urine culture. Deferred treating at this time.. XR personally interpreted demonstrates no acute cardiopulmonary pathology. Ultimately consulted hospital medicine for admission of this patient with generalized weakness and electrolyte abnormalities. Critical Care Critical Care Time Critical Care Time: No
--- NOTE | 2023-10-27 10:51 | ECG_ITS ---
APPROVED REPORT Exam: Resting ECG HR:60 bpm ECG Measurements Heart Rate 60 AXES ME 186 P 67 QRSd 100 QRS -16 QT 416 T 30 QTc 416 Conclusion SINUS RHYTHM MODERATE VOLTAGE CRITERIA FOR LVH, CONSIDER NORMAL VARIANT [MEETS CRITERIA IN ONE OF: R(aVL), S(V1), R(V5), R(V5/V6)+S(V1)] NONSPECIFIC T-WAVE ABNORMALITY BORDERLINE ECG No Stemi Electronically signed by : LORI RILEY, 10/28/2023 01:26:12
[2023-10-27 11:00] LABS: Coronavirus 19, PCR Not Detected (NotDetected); Influenza A, PCR Not Detected (NotDetected); Influenza B, PCR Not Detected (NotDetected)
[2023-10-27 11:06] LABS: Basophils % 0.3 % (0.1-2.0); Eosinophils % 0.5 % (0.1-12.0); Hematocrit 34.5 % (42.0-52.0); Lymphocytes # 1.6 K/mm3 (0.7-4.5); Mean Corpuscular HGB Conc 31.9 g/dL (31.8-35.4); Mean Corpuscular Hemoglobin 29.8 pg (27.0-31.2); Mean Corpuscular Volume 93.5 fl (80-94); Mean Platelet Volume 7.7 fl (7.4-10.4); Monocytes # 0.7 K/mm3 (0.1-1.0); Monocytes % 7.8 % (1.7-9.3); Neutrophils # 6.9 K/mm3 (1.8-7.8); Neutrophils % 74.4 % (37.0-80.0); Platelet Count 168 K/mm3 (142-424); Red Blood Count 3.69 M/mm3 (4.60-6.20); Red Cell Distribution Width 15.8 % (11.5-17.5); White Blood Count 9.3 K/mm3 (4.8-10.8)
[2023-10-27 11:08] LABS: Albumin Level 3.3 g/dl (3.5-5.0); Chloride 104 mmol/L (98-107); Sodium 136 mmol/L (136-145)
[2023-10-27 11:11] LABS: Alanine Aminotransferase 10 U/L (12-78); Albumin/Globulin Ratio 0.9 (1.1-1.8); Alkaline Phosphatase 99 U/L (38-126); Anion Gap 7.9 mEq/L (5-15); Aspartate Amino Transferase 30 U/L (17-59); Bilirubin,Total 0.6 mg/dl (0.2-1.3); Blood Urea Nitrogen 18 mg/dl (9-20); Calcium 7.4 mg/dl (8.4-10.2); Carbon Dioxide 27 mmol/L (22.0-30.0); Creatinine Clearance Estimated 32 mL/min (50-200); Estimated Glomerular Filt Rate 29 ml/min (>60); GFR (African American) 35 ML/MIN (>60); Globulin 3.6 g/dL (1.3-3.2); Glucose 125 mg/dl (74-100); Total Protein,Serum 6.9 g/dl (6.3-8.2)
[2023-10-27] MEDS: ACETAMINOPHEN 500MG TAB 1000 MG PO (11:15)
[2023-10-27 11:20] LABS: Potassium 2.9 mmoL/L (3.5-5.1)
--- NOTE | 2023-10-27 11:20 | PC.NURSE ---
CRITICAL K+ 2.9 RECEIVED FROM MARY LOU IN LAB. PT NAME AND R/V. DR TERAN NOTIFIED
[2023-10-27 11:21] LABS: NT Pro Brain Natriuretic Pep. 1630 pg/mL (0-450)
--- NOTE | 2023-10-27 11:42 | PC.NURSE ---
URINE COLLECTED WITH STERILE CATH SPECIMEN. ATTENDS SATURATED. PT CLEANED AND DRY ATTENDS PLACED. PT TOLERATED WELL
[2023-10-27 11:44] LABS: Microscopic, Urine URINE MICROSCOPIC (MICROSCOPIC)
[2023-10-27] MEDS: KCl 10mEq/100ml 100 ML 100 MEQ IV ×3 (11:50→15:40)
[2023-10-27 11:51] LABS: HIV (1&2) Antibody Rapid NONREACTIVE (NONREACTIVE)
[2023-10-27 11:53] LABS: Magnesium 0.7 mg/dl (1.6-2.3)
[2023-10-27 12:01] LABS: Appearance,Urine CLEAR (Clear); Bilirubin,Urine Negative (Negative); Blood, Urine 2+ (Negative); Color,Urine YELLOW (Yellow); Glucose,Urine (UA) Negative (Negative); Ketones,Urine Negative (Negative); Leukocyte Esterase,Urine 2+ (Negative); Nitrate,Urine Negative (Negative); Protein,Urine 2+ (Negative); Specific Gravity, Urine 1.015 (1.005-1.030); Urobilinogen,Urine 0.2 EU/dl (0.2)
[2023-10-27 12:46] LABS: Bacteria,Urine 1+ /lpf; WBC,Urine 20-50 #/hpf (0-3)
[2023-10-27] MEDS: MAGNESIUM SULFATE IN WATER 2 GM/50 ML PIGGYBACK IV ×5 (13:13→21:27)
[2023-10-27] MEDS: SODIUM CHLORIDE 0.9% 500ML BAG 500 ML IV (13:16)
--- NOTE | 2023-10-27 14:31 | PC.NURSE ---
spoke with stockroom supervisor regarding bed request.
--- NOTE | 2023-10-27 14:33 | EXP.HP ---
History of Present Illness *Admission Date: 10/27/23 *Reason for visit:: Weakness, hypokalemia, hypomagnesemia *History of present illness: Tomas Crocker is a 78-year-old male with a medical history significant for Parkinson's dementia, hypertension, hyperlipidemia, insulin-dependent diabetes, hypothyroidism, anxiety/depression who presented via EMS after noticed increased weakness. Per patient, this has been ongoing for a few days with no significant change in p.o. intake. Denies chest pain, shortness of breath, abdominal pain, dysuria. No recent changes in medications. Workup in the ED significant for potassium 2.9, magnesium 0.7, and UA positive for protein, blood, leukocyte esterase, WBC. He was started on IV potassium 10 mill equivalents drip, and given mag sulfate 2 g. Case was discussed with the ED provider and decision was made to admit patient for severe electrolyte abnormalities and generalized weakness. [facility] Disclaimer: The information contained in this section may have been updated after the patient was seen, as this information can be updated by other users. Medical History GERD (gastroesophageal reflux disease) Gout Insomnia CKD (chronic kidney disease) Decreased mobility History of osteomyelitis Osteomyelitis Surgical History History of amputation of toe History of colonoscopy History of laparoscopic cholecystectomy Family History Other No significant family history Social History Smoking Status: Never smoker alcohol intake: never substance use type: denies use current occupational status: unemployed Travel in the last 8 weeks: None household members: family housing: house number of children: 1 caffeine: Yes Meds Home Medications and Allergies Home Medications ?Medication ?Instructions ?Recorded ?Confirmed ?Type atorvastatin 40 mg tablet 40 mg PO HS 04/22/23 10/27/23 History paroxetine HCl 40 mg tablet 40 mg PO DAILY 04/22/23 10/27/23 History aspirin 81 mg chewable tablet 81 mg PO DAILY 05/08/23 10/27/23 History carvedilol 25 mg tablet 25 mg PO BID 05/29/23 10/27/23 History levothyroxine 25 mcg tablet 25 mcg PO DAILYDM 05/29/23 10/27/23 History hydrocodone 5 mg-acetaminophen 325 1 tab PO BIDP PRN Pain, Moderate 07/04/23 10/27/23 Rx mg tablet #60 tabs allopurinol 300 mg tablet 300 mg PO DAILY 09/06/23 10/27/23 History carbidopa 25 mg-levodopa 100 mg 1 tab PO QID 09/06/23 10/27/23 History tablet gabapentin 400 mg capsule 400 mg PO BIDP PRN Neuropathic pain 09/06/23 10/27/23 History losartan 100 mg tablet 100 mg PO DAILY 09/06/23 10/27/23 History omeprazole 20 mg capsule,delayed 20 mg PO BID 09/06/23 10/27/23 History release quetiapine 100 mg tablet 100 mg PO HS 09/06/23 10/27/23 History trazodone 50 mg tablet 50 mg PO HS 09/06/23 10/27/23 History fluconazole 100 mg tablet 100 mg PO DAILY 10 days #10 tabs 09/07/23 10/27/23 Rx (Diflucan) insulin aspart U-100 100 unit/mL 8 unit (0.08 mL) SQ QPMWITHMEAL 09/07/23 10/27/23 Rx (3 mL) subcutaneous pen (Novolog #15 mL FlexPen U-100 Insulin aspart) insulin glargine 100 unit/mL (3 35 unit (0.35 mL) SQ DAILY 30 days 09/07/23 10/27/23 Rx mL) subcutaneous pen (Lantus #15 mL Solostar U-100 Insulin) magnesium oxide 400 mg (241.3 mg 400 mg PO DAILY 30 days #30 tabs 09/07/23 10/27/23 Rx magnesium) tablet potassium chloride 20 mEq 40 meq (2 x 20 mEq) PO DAILY 30 09/07/23 10/27/23 Rx tablet,extended days #60 tabs release(part/cryst) (Daryl Cano) New Prescriptions to Start Prescriptions: Allergies Allergy/AdvReac Type Severity Reaction Status Date / Time No Known Allergies Allergy Verified 03/06/23 14:00 Exam Data for Last 24 hours Vital signs and Labs for Last 24 Hours: Temp Pulse Resp BP Pulse Ox O2 Del Method 101.8 F H 58 L 18 144/65 H 92 L Room Air 10/27/23 10:33 10/27/23 13:30 10/27/23 13:30 10/27/23 13:30 10/27/23 13:30 10/27/23 11:29 Laboratory Results - last 24 hr 10/27/23 10:38: WBC 9.3, RBC 3.69 L, Hgb 11.0 L, Hct 34.5 L, MCV 93.5, MCH 29.8, MCHC 31.9, RDW 15.8, Plt Count 168, MPV 7.7, Neut % (Auto) 74.4, Lymph % (Auto) 17.0, [place] % (Auto) 7.8, Eos % (Auto) 0.5, Baso % (Auto) 0.3, Neut # (Auto) 6.9, Lymph # (Auto) 1.6, [place] # (Auto) 0.7, Eos # (Auto) 0.0, Baso # (Auto) 0.0, Sodium 136, Potassium 2.9 L*, Chloride 104, Carbon Dioxide 27, Anion Gap 7.9, BUN 18, Creatinine 2.20 H, Estimated Creat Clear 32, Estimated GFR 29 L, Est GFR ( Amer) 35 L, Glucose 125 H, Calcium 7.4 L, Magnesium 0.7 L, Total Bilirubin 0.6, AST 30, ALT 10 L, Alkaline Phosphatase 99, NT-Pro-B Natriuret Pep 1630 H, Total Protein 6.9, Albumin 3.3 L, Globulin 3.6 H, Albumin/Globulin Ratio 0.9 L 10/27/23 10:41: SARS-CoV-2 (PCR) Not detected, HIV 1&2 Antibody Rapid Nonreactive, Influenza A Untype (PCR) Not detected, Influenza Type B (PCR) Not detected 10/27/23 11:38: Urine Color Yellow, Urine Appearance Clear, Urine pH 6.0, Ur Specific [place] 1.015, Urine Protein 2+ A, Urine Glucose (UA) Negative, Urine Ketones Negative, Urine Blood 2+ A, Urine Nitrate Negative, Urine Bilirubin Negative, Urine Urobilinogen 0.2, Ur Leukocyte Esterase 2+ A, Urine RBC 3-5, Urine WBC 20-50, Ur Squamous Epith Cells 5-10, Urine Bacteria 1+ I & O for Last 24 hours: Intake & Output 09/18/10/25/23 10/26/23 10/27/23 23:59 23:59 23:59 23:59 Weight 81.647 kg Constitutional Constitutional: no acute distress *Routine HEENT Exam Head: Present normocephalic Eye: Present EOMI and PERRL ENT: Present mucous membranes moist *Routine Neck Exam Neck: Present supple; Absent lymphadenopathy *Routine Respiratory Exam Respiratory: Present CTA bilaterally *Routine Cardiovascular Exam Cardiovascular: Present RRR *Routine Abdominal Exam Abdominal: Present soft and normoactive bowel sounds; Absent tenderness *Routine Rectal Exam Rectal:: deferred *Routine Genitalia Exam Genitalia:: deferred *Routine Extremities Exam Extremities: Present edema; Absent cyanosis or clubbing Comments: Bilateral lower extremity 3+ pitting edema up to knees. Left carter skin breakdown with surrounding erythema without tenderness. *Routine Skin Exam Skin: Present warm; Absent rash *Routine Neurological Exam Neurological: Present alert and oriented X3 Additional Findings:: Tomas Crocker is a 78-year-old male with a medical history significant for Parkinson's dementia, hypertension, hyperlipidemia, insulin-dependent diabetes, hypothyroidism, anxiety/depression who presented via EMS after noticed increased weakness. Per patient, this has been ongoing for a few days with no significant change in p.o. intake. Denies chest pain, shortness of breath, abdominal pain, dysuria, constipation/diarrhea. No recent changes in medications. Workup in the ED significant for potassium 2.9, magnesium 0.7, and UA positive for protein, blood, leukocyte esterase, WBC. He was started on IV potassium 10 mill equivalents drip, and given mag sulfate 2 g. Case was discussed with the ED provider and decision was made to admit patient for severe electrolyte abnormalities and generalized weakness. #Hypokalemia #Hypomagnesemia ? Initial potassium 2.9, magnesium 0.7. ? Patient states he has been eating well, denies nausea/vomiting, diarrhea. ? Given IV potassium 10 mEq drip in the ED. Follow-up potassium 3.1 ? Given IV magnesium 2 g in the ED. Follow-up magnesium 1.3. ? Ordered another IV magnesium 2 g. ? Resumed home potassium 40 mill equivalents twice daily. ? Resumed home magnesium oxide 400 mg. ? Follow-up morning BMP, magnesium. Electrolyte replacement protocol. ? Follow-up morning phosphorus. #Elevated BNP #Lower extremity pitting edema #? Acute on chronic heart failure, unknown type ? No cardiac history, including heart failure. ? Patient states lower extremity edema has been going on for several weeks to months. Initial BNP 1630, though this can be age-related. ? Follow-up troponin. ? Will give IV Lasix diuresis challenge. Follow-up swelling tomorrow. ? Follow-up ECHO. #KJ on CKD stage IV ? Initial creatinine 2.2, baseline 1.7. ? Likely from prerenal third spacing, will diurese. See above. ? Monitor renal function with BMP daily. ? Follow-up CK. #Parkinson's disease ? Continue home carbidopa levodopa. #Insulin-dependent diabetes, ? LDSSI, ACHS glucose checks. ? Started Lantus 10 units nightly, home regimen glargine 35 units. Adjust based on SSI needs #Hypothyroidism ? Continue home levothyroxine 25 mcg. #Hypertension ? Hold home losartan 100 mg given KJ. ? Hold home carvedilol given asymptomatic bradycardia. ? Currently stable #GERD ? Protonix. CODE STATUS: Full code DVT prophylaxis: Heparin given KJ Diet: Cardiac
--- NOTE | 2023-10-27 14:35 | PC.NURSE ---
Admissions notified pt is being admitted to rm 201 to the hospitalist for hypokalemia & hypomagnesemia
[2023-10-27] MEDS: ONDANSETRON 4MG/2ML VIAL 4 MG IV (15:40)
[2023-10-27 16:02] LABS: POC Glucose,Bedside 119 (70-110)
[2023-10-27 16:36] LABS: Chloride 105 mmol/L (98-107); Potassium 3.1 mmoL/L (3.5-5.1); Sodium 134 mmol/L (136-145)
[2023-10-27 16:39] LABS: Anion Gap 7.1 mEq/L (5-15); Blood Urea Nitrogen 20 mg/dl (9-20); Carbon Dioxide 25 mmol/L (22.0-30.0); Creatinine Clearance Estimated 32 mL/min (50-200); Estimated Glomerular Filt Rate 29 ml/min (>60); GFR (African American) 35 ML/MIN (>60); Glucose 122 mg/dl (74-100); Magnesium 1.3 mg/dl (1.6-2.3)
[2023-10-27] MEDS: POTASSIUM CHLORIDE 20MEQ TAB 40 MEQ PO ×2 (18:06→23:39)
[2023-10-27] MEDS: FUROSEMIDE 40MG/4ML VIAL 40 MG IV (18:06)
[2023-10-27] MEDS: ATORVASTATIN 40MG TABLET 40 MG PO (21:01)
[2023-10-27] MEDS: TRAZODONE 50MG TABLET 50 MG PO (21:01)
[2023-10-27] MEDS: PANTOPRAZOLE 40MG TABLET 40 MG PO (21:01)
[2023-10-27] MEDS: CARBIDOPA/LEVODOPA 25/100MG TABLET 1 EACH PO (21:01)
[2023-10-27] MEDS: QUETIAPINE 100MG TABLET 100 MG PO (21:01)
[2023-10-27] MEDS: HEPARIN SODIUM 5,000 UNIT/ML VIAL 5000 UNIT SQ (21:02)
[2023-10-27 21:08] LABS: Chloride 104 mmol/L (98-107); Sodium 133 mmol/L (136-145)
[2023-10-27 21:09] LABS: Potassium 3.6 mmoL/L (3.5-5.1)
[2023-10-27 21:11] LABS: Blood Urea Nitrogen 22 mg/dl (9-20); Creatinine Clearance Estimated 34 mL/min (50-200); Estimated Glomerular Filt Rate 31 ml/min (>60); GFR (African American) 37 ML/MIN (>60)
[2023-10-27 21:12] LABS: Anion Gap 8.6 mEq/L (5-15); Calcium 7.2 mg/dl (8.4-10.2); Carbon Dioxide 24 mmol/L (22.0-30.0); Glucose 291 mg/dl (74-100)
[2023-10-27] MEDS: humaLOG 100 UNITS/ML 10ML VIAL (SSI) SQ (21:19)
[2023-10-28] VITALS (7 sets, daily range): BP systolic 115–161; BP diastolic 50–78; PULSE 50–62; RESP 14–19; TEMP 36.6–37.7; O2SAT 95–100; BMI 24.3
[2023-10-28] MEDS: POTASSIUM CHLORIDE 20MEQ TAB 40 MEQ PO ×2 (03:22→08:36)
--- NOTE | 2023-10-28 05:34 | PC.NURSE ---
Pt is alert and oriented x4 and tolerating RA well. Pt has had magnesium and potassium replacement this shift and BMP with be repeated @0600 per protocol. Pt has had no acute changes this shift, denies pain and needs at this time.
[2023-10-28] MEDS: LEVOTHYROXINE 25MCG (0.025MG) TAB 25 MCG PO (06:40)
[2023-10-28 07:26] LABS: POC Glucose,Bedside 258 (70-110)
[2023-10-28 07:32] LABS: Chloride 108 mmol/L (98-107); Sodium 136 mmol/L (136-145)
[2023-10-28 07:33] LABS: Potassium 4.5 mmoL/L (3.5-5.1)
[2023-10-28 07:34] LABS: Basophils % 0.6 % (0.1-2.0); Eosinophils # 0.1 K/mm3 (0.0-0.4); Eosinophils % 1.4 % (0.1-12.0); Hematocrit 32.5 % (42.0-52.0); Hemoglobin 10.5 g/dL (14.1-18.0); Lymphocytes # 1.4 K/mm3 (0.7-4.5); Lymphocytes % 18.5 % (10-50); Mean Corpuscular HGB Conc 32.2 g/dL (31.8-35.4); Mean Corpuscular Hemoglobin 29.9 pg (27.0-31.2); Mean Corpuscular Volume 92.8 fl (80-94); Mean Platelet Volume 7.4 fl (7.4-10.4); Monocytes # 0.6 K/mm3 (0.1-1.0); Monocytes % 7.6 % (1.7-9.3); Neutrophils # 5.5 K/mm3 (1.8-7.8); Neutrophils % 71.8 % (37.0-80.0); Platelet Count 141 K/mm3 (142-424); Red Cell Distribution Width 15.8 % (11.5-17.5); White Blood Count 7.7 K/mm3 (4.8-10.8)
[2023-10-28 07:35] LABS: Anion Gap 8.5 mEq/L (5-15); Blood Urea Nitrogen 22 mg/dl (9-20); Carbon Dioxide 24 mmol/L (22.0-30.0); Creatine Kinase 135 U/L (55-170); Creatinine Clearance Estimated 36 mL/min (50-200); Estimated Glomerular Filt Rate 33 ml/min (>60); GFR (African American) 39 ML/MIN (>60)
[2023-10-28 07:36] LABS: Calcium 7.4 mg/dl (8.4-10.2); Glucose 156 mg/dl (74-100); Magnesium 2.3 mg/dl (1.6-2.3)
[2023-10-28 07:47] LABS: Phosphorous 2.9 mg/dl (2.5-4.5)
[2023-10-28] MEDS: FUROSEMIDE 40MG/4ML VIAL 40 MG IV (08:35)
[2023-10-28] MEDS: ALLOPURINOL 300MG TABLET 300 MG PO (08:36)
[2023-10-28] MEDS: MAGNESIUM OXIDE 400MG TABLET 400 MG PO (08:36)
[2023-10-28] MEDS: CARBIDOPA/LEVODOPA 25/100MG TABLET 1 EACH PO ×4 (08:36→21:21)
[2023-10-28] MEDS: PANTOPRAZOLE 40MG TABLET 40 MG PO ×2 (08:36→21:21)
[2023-10-28] MEDS: ASPIRIN 81MG CHEWABLE TABLET 81 MG PO (08:36)
[2023-10-28] MEDS: PARoxetine 20MG TABLET 40 MG PO (08:37)
[2023-10-28] MEDS: HEPARIN SODIUM 5,000 UNIT/ML VIAL 5000 UNIT SQ ×3 (08:37→21:20)
[2023-10-28 09:08] LABS: HCV Ab Non Reactive (Non Reactive)
--- NOTE | 2023-10-28 10:04 | PC.NURSE ---
pt daughter kaiden abdalla called for update on pt. daughter informed of pt status.
--- NOTE | 2023-10-28 10:11 | HMH.PHAINT1 ---
Pharmacy Intervention Comments: MEDICATION RECONCILIATION COMPLETE USING EXTERNAL PHARMACY FILL HISTORY, RECENT HOSPITAL DISCHARGE NOTE, AND KIKE REPORT.
[2023-10-28] MEDS: humaLOG 100 UNITS/ML 10ML VIAL (SSI) SQ ×3 (10:48→21:21)
[2023-10-28 10:56] LABS: POC Glucose,Bedside 258 (70-110)
[2023-10-28 16:21] LABS: POC Glucose,Bedside 247 (70-110)
--- NOTE | 2023-10-28 18:32 | PC.NURSE ---
pt remains a&ox4 this shift. pt also remained on room air. tele was d/c today d/t no more needed replacement K+/mag. daughter has called multiple times to check on pt. no new orders at this time. call light within reach.
--- NOTE | 2023-10-28 18:41 | EXP.PN ---
Subjective *Date: 10/28/23 *Time: 16:00 Exam Data for Last 24 hours Vital signs and Labs for Last 24 Hours: Temp Pulse Resp BP Pulse Ox O2 Del Method 98.2 F 54 L 18 137/78 99 Room Air 10/28/23 16:00 10/28/23 16:00 10/28/23 16:00 10/28/23 16:00 10/28/23 16:00 10/28/23 18:37 Laboratory Results - last 24 hr 10/27/23 10:41: Hepatitis C Antibody Non reactive, Hep C Ab Comment Comment 10/27/23 21:00: Sodium 133 L, Potassium 3.6, Chloride 104, Carbon Dioxide 24, Anion Gap 8.6, BUN 22 H, Creatinine 2.10 H, Estimated Creat Clear 34, Estimated GFR 31 L, Est GFR ( Amer) 37 L, Glucose 291 H D, Calcium 7.2 L 10/27/23 21:07: POC Glucose 258 H 10/28/23 07:11: WBC 7.7, RBC 3.50 L, Hgb 10.5 L, Hct 32.5 L, MCV 92.8, MCH 29.9, MCHC 32.2, RDW 15.8, Plt Count 141 L, MPV 7.4, Neut % (Auto) 71.8, Lymph % (Auto) 18.5, [place] % (Auto) 7.6, Eos % (Auto) 1.4, Baso % (Auto) 0.6, Neut # (Auto) 5.5, Lymph # (Auto) 1.4, [place] # (Auto) 0.6, Eos # (Auto) 0.1, Baso # (Auto) 0.0, Sodium 136, Potassium 4.5 D, Chloride 108 H, Carbon Dioxide 24, Anion Gap 8.5, BUN 22 H, Creatinine 2.00 H, Estimated Creat Clear 36, Estimated GFR 33 L, Est GFR ( Amer) 39 L, Glucose 156 H D, Calcium 7.4 L, Phosphorus 2.9, Magnesium 2.3 D, Total Creatine Kinase 135 10/28/23 10:37: POC Glucose 258 H 10/28/23 16:04: POC Glucose 247 H I & O for Last 24 hours: Intake & Output 10/25/23 10/26/23 10/27/23 10/28/23 23:59 23:59 23:59 23:59 Intake Total 270 / 510 1320 / 1320 Output Total 1100 / 1100 1850 / 1850 Balance -830 / -590 -530 / -530 Weight 81.647 kg 81.64 kg Constitutional Constitutional: no acute distress *Routine HEENT Exam Head: Present normocephalic Eye: Present EOMI and PERRL ENT: Present mucous membranes moist *Routine Neck Exam Neck: Present supple; Absent lymphadenopathy *Routine Respiratory Exam Respiratory: Present CTA bilaterally *Routine Cardiovascular Exam Cardiovascular: Present RRR *Routine Abdominal Exam Abdominal: Present soft and normoactive bowel sounds; Absent tenderness *Routine Extremities Exam Extremities: Present edema; Absent cyanosis or clubbing Comments: Bilateral lower extremity 3+ pitting edema up to knees, improving. Left carter skin breakdown with surrounding erythema without tenderness. Left thigh atrophy. *Routine Skin Exam Skin: Present warm; Absent rash *Routine Neurological Exam Neurological: Present alert and oriented X3 Assessment and Plan *Assessment and plan (1) Hypokalemia: Status: Acute Category: Medical Code(s): E87.6 - Hypokalemia (2) Hypomagnesemia: Status: Acute Category: Medical Code(s): E83.42 - Hypomagnesemia (3) KJ (acute kidney injury): Status: Acute Category: Medical Code(s): N17.9 - Acute kidney failure, unspecified (4) HLD (hyperlipidemia): Status: Acute Qualifiers: Hyperlipidemia type: unspecified Qualified Code(s): E78.5 - Hyperlipidemia, unspecified Category: Medical Code(s): E78.5 - Hyperlipidemia, unspecified (5) HTN (hypertension): Status: Acute Qualifiers: Hypertension type: unspecified Qualified Code(s): I10 - Essential (primary) hypertension Category: Medical Code(s): I10 - Essential (primary) hypertension (6) Diabetes mellitus: Status: Chronic Qualifiers: Diabetes mellitus type: type 2 Diabetes mellitus alf insulin use: with terminal superintendent use Diabetes mellitus complication status: with other specified complication Qualified Code(s): E11.69 - Type 2 diabetes mellitus with other specified complication; Z79.4 - residential (current) use of insulin Category: Medical Code(s): E11.9 - Type 2 diabetes mellitus without complications Plan Tomas Crocker is a 78-year-old male with a medical history significant for Parkinson's dementia, hypertension, hyperlipidemia, insulin-dependent diabetes, hypothyroidism, anxiety/depression who presented via EMS after noticed increased weakness. Per patient, this has been ongoing for a few days with no significant change in p.o. intake. Denies chest pain, shortness of breath, abdominal pain, dysuria, constipation/diarrhea. No recent changes in medications. Workup in the ED significant for potassium 2.9, magnesium 0.7, and UA positive for protein, blood, leukocyte esterase, WBC. He was started on IV potassium 10 mill equivalents drip, and given mag sulfate 2 g. Case was discussed with the ED provider and decision was made to admit patient for severe electrolyte abnormalities and generalized weakness. #Elevated BNP #Lower extremity pitting edema #? Acute on chronic heart failure, unknown type ? No cardiac history, including heart failure. On room air. ? Patient states lower extremity edema has been going on for several weeks to months. Initial BNP 1630, though this can be age-related. ? IV Lasix 40 mg twice daily, with mild improvement in edema and creatinine today. ? Follow-up ECHO. #KJ on CKD stage IV ? Initial creatinine 2.2, baseline 1.7. CK normal. ? Likely from prerenal third spacing, will diurese. See above. ? Improving with diuresis. ? Monitor renal function with BMP daily. #Physical deconditioning ? At baseline, patient states he uses a walker to get around. ? However, patient has not been able to get out of bed during hospitalization. ? PT/OT consulted, pending recommendations. #Hypokalemia #Hypomagnesemia ? Initial potassium 2.9, magnesium 0.7. ? Patient states he has been eating well, denies nausea/vomiting, diarrhea. ? Improved and normal after repletion. ? Resumed home potassium 40 mill equivalents twice daily. ? Resumed home magnesium oxide 400 mg. ? Follow-up BMP, magnesium. Electrolyte replacement protocol. #Abnormal urinalysis ? Positive LE, WBC, bacteria, blood, protein. However, consistent with previous UAs and negative urine cultures. ? Follow-up urine culture, start antibiotics if positive. #Parkinson's disease ? Continue home carbidopa levodopa. #Insulin-dependent diabetes, ? LDSSI, ACHS glucose checks. ? Started Lantus 10 units nightly, home regimen glargine 35 units. Adjust based on SSI needs #Hypothyroidism ? Continue home levothyroxine 25 mcg. #Hypertension ? Hold home losartan 100 mg given KJ. ? Hold home carvedilol given asymptomatic bradycardia. ? Currently stable #GERD ? Protonix. CODE STATUS: Full code DVT prophylaxis: Heparin given KJ Diet: Cardiac
[2023-10-28 20:52] LABS: POC Glucose,Bedside 225 (70-110)
[2023-10-28] MEDS: TRAZODONE 50MG TABLET 50 MG PO (21:20)
[2023-10-28] MEDS: QUETIAPINE 100MG TABLET 100 MG PO (21:20)
[2023-10-28] MEDS: ATORVASTATIN 40MG TABLET 40 MG PO (21:21)
[2023-10-29 04:00] VITALS: BP 165/75; PULSE 60; RESP 14; TEMP 36.9; O2SAT 99; BMI 25.1
--- NOTE | 2023-10-29 04:13 | PC.NURSE ---
78 yo male pt with A/O x 2. Pt has denied pain or discomfort or SOA throughout shift. 02 sats at 100 % on RA. FSBS at 9 pm was 225, provided insulin per SS/see APR. Pt has voided using urinal and also wearing brief for times of incontinence. He has not been OOB . Pt seems to have rested well most of shift.
[2023-10-29] MEDS: humaLOG 100 UNITS/ML 10ML VIAL (SSI) SQ ×2 (06:02→10:50)
[2023-10-29] MEDS: LEVOTHYROXINE 25MCG (0.025MG) TAB 25 MCG PO (06:02)
[2023-10-29 06:16] LABS: POC Glucose,Bedside 186 (70-110)
[2023-10-29 06:39] LABS: Basophils % 0.6 % (0.1-2.0); Eosinophils # 0.3 K/mm3 (0.0-0.4); Eosinophils % 3.8 % (0.1-12.0); Hematocrit 33.5 % (42.0-52.0); Hemoglobin 11.1 g/dL (14.1-18.0); Lymphocytes # 1.5 K/mm3 (0.7-4.5); Lymphocytes % 22.1 % (10-50); Mean Corpuscular HGB Conc 33.2 g/dL (31.8-35.4); Mean Corpuscular Hemoglobin 30.9 pg (27.0-31.2); Mean Corpuscular Volume 93.1 fl (80-94); Mean Platelet Volume 8.7 fl (7.4-10.4); Monocytes # 0.5 K/mm3 (0.1-1.0); Monocytes % 7.6 % (1.7-9.3); Neutrophils # 4.4 K/mm3 (1.8-7.8); Neutrophils % 65.8 % (37.0-80.0); Platelet Count 164 K/mm3 (142-424); Red Cell Distribution Width 15.7 % (11.5-17.5); White Blood Count 6.7 K/mm3 (4.8-10.8)
[2023-10-29 07:00] LABS: Chloride 105 mmol/L (98-107)
[2023-10-29 07:01] LABS: Potassium 4.5 mmoL/L (3.5-5.1); Sodium 135 mmol/L (136-145)
[2023-10-29 07:04] LABS: Anion Gap 6.5 mEq/L (5-15); Blood Urea Nitrogen 23 mg/dl (9-20); Carbon Dioxide 28 mmol/L (22.0-30.0); Creatinine Clearance Estimated 39 mL/min (50-200); Estimated Glomerular Filt Rate 35 ml/min (>60); GFR (African American) 42 ML/MIN (>60); Glucose 188 mg/dl (74-100); Magnesium 1.8 mg/dl (1.6-2.3)
[2023-10-29 08:00] VITALS: BP 172/75; PULSE 57; RESP 18; TEMP 36.4; O2SAT 98
[2023-10-29] MEDS: ALLOPURINOL 300MG TABLET 300 MG PO (08:22)
[2023-10-29] MEDS: MAGNESIUM OXIDE 400MG TABLET 400 MG PO (08:22)
[2023-10-29] MEDS: PANTOPRAZOLE 40MG TABLET 40 MG PO (08:22)
[2023-10-29] MEDS: CARBIDOPA/LEVODOPA 25/100MG TABLET 1 EACH PO (08:22)
[2023-10-29] MEDS: HEPARIN SODIUM 5,000 UNIT/ML VIAL 5000 UNIT SQ (08:22)
[2023-10-29] MEDS: ASPIRIN 81MG CHEWABLE TABLET 81 MG PO (08:22)
[2023-10-29] MEDS: FUROSEMIDE 40MG/4ML VIAL 40 MG IV (08:22)
[2023-10-29] MEDS: POTASSIUM CHLORIDE 20MEQ TAB 40 MEQ PO (08:23)
[2023-10-29] MEDS: PARoxetine 20MG TABLET 40 MG PO (08:23)
[2023-10-29] MEDS: IRBESARTAN 150MG TAB 150 MG PO (08:25)
--- NOTE | 2023-10-29 08:46 | P.DS_ITS ---
General Admission date:: 10/27/23 Discharge date: 10/29/23 HPI HPI HPI: Tomas Crocker is a 78-year-old male with a medical history significant for Parkinson's dementia, hypertension, hyperlipidemia, insulin-dependent diabetes, hypothyroidism, anxiety/depression who presented via EMS after noticed increased weakness. Per patient, this has been ongoing for a few days with no significant change in p.o. intake. Denies chest pain, shortness of breath, abdominal pain, dysuria. No recent changes in medications. Workup in the ED significant for potassium 2.9, magnesium 0.7, and UA positive for protein, blood, leukocyte esterase, WBC. He was started on IV potassium 10 mill equivalents drip, and given mag sulfate 2 g. Case was discussed with the ED provider and decision was made to admit patient for severe electrolyte abnormalities and generalized weakness. Hospital Course Hospital Course Hospital Course: Tomas Crocker is a 78-year-old male with a medical history significant for Parkinson's dementia, hypertension, hyperlipidemia, insulin-dependent diabetes, hypothyroidism, anxiety/depression who presented via EMS after noticed increased weakness. Per patient, this has been ongoing for a few days with no significant change in p.o. intake. Denies chest pain, shortness of breath, abdominal pain, dysuria, constipation/diarrhea. No recent changes in medications. Workup in the ED significant for potassium 2.9, magnesium 0.7, and UA positive for protein, blood, leukocyte esterase, WBC. He was started on IV potassium 10 mill equivalents drip, and given mag sulfate 2 g. Case was discussed with the ED provider and decision was made to admit patient for severe electrolyte abnormalities and generalized weakness. Patient responded to therapy. Diuresed well. Improving functionality. Electrolytes improving. Stable to discharge home with home health and family. Problems addressed as follows: #Elevated BNP #Lower extremity pitting edema #? Acute on chronic heart failure, unknown type ? No cardiac history, including heart failure. On room air. Patient states lower extremity edema has been going on for several weeks to months. Initial BNP 1630, though this can be age-related. Initially treated the reticulocyte's. Will transition to Lasix 40 mg daily at discharge. Echo unremarkable with normal heart function. Unable to estimate RVSP due to insufficient TR jet. EF preserved. #KJ on CKD stage IV ? Initial creatinine 2.2, baseline 1.7. CK normal. Kidney function at baseline with BUN 23, creatinine 1.9. Electrolytes normal with potassium 4.5. Magnesium improved at 1.8. ? Likely from prerenal third spacing, will diurese. See above. Improved with diuresis. Recommend repeat BMP and CBC in 1 week #Physical deconditioning ? At baseline, patient states he uses a walker to get around. Therapy evaluated. Will discharge home with home health. #Hypokalemia #Hypomagnesemia ? Initial potassium 2.9, magnesium 0.7. Improved during admission. Potassium 4.5 and magnesium 1.8 on day of discharge. Continue supplementation orally. Needs repeat levels in 1 week with BMP and magnesium. #Abnormal urinalysis ? Positive LE, WBC, bacteria, blood, protein. However, consistent with previous UAs and negative urine cultures. No indication for antibiotics during admission #Parkinson's disease ? Continue home carbidopa levodopa. Concerned that his condition progresses, patient will need more assistance and may need placement. Encouraged further goals of care discussions with patient and family #Insulin-dependent diabetes, ? Sliding scale and basal insulin during admission. Continue glargine 35 units nightly at discharge. Most recent A1c on 09/05 of 8.1. Goal would be less than 8 given patient's comorbidities, age, and most recent ADA recommendations #Hypothyroidism: Continue home levothyroxine 25 mcg. #Hypertension ?Held blood pressure meds initially due to kidney injury. Resume carvedilol to 0.5 mg twice daily at large along with losartan 100 mL grams daily. Blood pressure improved by day of discharge. #GERD ? Protonix. Exam Data for Last 24 hours Vital signs and Labs for Last 24 Hours: Temp Pulse Resp BP Pulse Ox O2 Del Method 97.5 F L 57 L 18 172/75 H 98 Room Air 10/29/23 08:00 10/29/23 08:00 10/29/23 08:00 10/29/23 08:00 10/29/23 08:00 10/29/23 08:00 Laboratory Results - last 24 hr 10/27/23 10:41: Hepatitis C Antibody Non reactive, Hep C Ab Comment Comment 10/28/23 10:37: POC Glucose 258 H 10/28/23 16:04: POC Glucose 247 H 10/28/23 20:31: POC Glucose 225 H 10/29/23 05:44: POC Glucose 186 H 10/29/23 06:17: WBC 6.7, RBC 3.60 L, Hgb 11.1 L, Hct 33.5 L, MCV 93.1, MCH 30.9, MCHC 33.2, RDW 15.7, Plt Count 164, MPV 8.7, Neut % (Auto) 65.8, Lymph % (Auto) 22.1, [place] % (Auto) 7.6, Eos % (Auto) 3.8, Baso % (Auto) 0.6, Neut # (Auto) 4.4, Lymph # (Auto) 1.5, [place] # (Auto) 0.5, Eos # (Auto) 0.3, Baso # (Auto) 0.0, Sodium 135 L, Potassium 4.5, Chloride 105, Carbon Dioxide 28, Anion Gap 6.5, BUN 23 H, Creatinine 1.90 H, Estimated Creat Clear 39, Estimated GFR 35 L, Est GFR ( Amer) 42 L, Glucose 188 H D, Calcium 8.0 L, Magnesium 1.8 D I & O for Last 24 hours: Intake & Output 10/26/23 10/27/23 10/28/23 10/29/23 23:59 23:59 23:59 23:59 Intake Total 270 / 510 1320 / 1320 Output Total 1100 / 1100 2049 / 2049 600 / 600 Balance -830 / -590 -730 / -730 -600 / -600 Weight 81.647 kg 81.64 kg 84.141 kg Microbiology Reports for the Last 24 Hours: Microbiology 10/27/23 11:38 Urine,Clean Catch Urine Culture - Final No growth. Constitutional Constitutional: no acute distress, average body habitus, chronically ill appearing and cooperative *Routine HEENT Exam Head: Present normocephalic and atraumatic Eye: Present EOMI and PERRL ENT: Present mucous membranes moist *Routine Neck Exam Neck: Present supple; Absent lymphadenopathy *Routine Respiratory Exam Respiratory: Present CTA bilaterally; Absent rhonchi, wheezes or crackles *Routine Cardiovascular Exam Cardiovascular: Present RRR *Routine Abdominal Exam Abdominal: Present soft, normoactive bowel sounds and tenderness (Suprapubic) *Routine Rectal Exam Patient deferred: visual exam *Routine Exam Patient deferred: penile exam *Routine Extremities Exam Extremities: Absent cyanosis, clubbing or edema *Routine Skin Exam Skin: Present warm; Absent rash *Routine Neurological Exam Neurological: Present alert, oriented X3 and moving all extremities; Absent al tered mental status Comments: Rigidity in limbs. Shuffling gait when ambulates. Results Data Completed and Pending Labs on day of discharge: Labs from last 24 hours 10/29/23 10/29/23 10/28/23 06:17 05:44 20:31 WBC 6.7 RBC 3.60 L Hgb 11.1 L Hct 33.5 L MCV 93.1 MCH 30.9 MCHC 33.2 RDW 15.7 Plt Count 164 MPV 8.7 Neut % (Auto) 65.8 Lymph % (Auto) 22.1 [place] % (Auto) 7.6 Eos % (Auto) 3.8 Baso % (Auto) 0.6 Neut # (Auto) 4.4 Lymph # (Auto) 1.5 [place] # (Auto) 0.5 Eos # (Auto) 0.3 Baso # (Auto) 0.0 Sodium 135 L Potassium 4.5 Chloride 105 Carbon Dioxide 28 Anion Gap 6.5 BUN 23 H Creatinine 1.90 H Estimated Creat Clear 39 Estimated GFR 35 L Est GFR ( Amer) 42 L Glucose 188 H D POC Glucose 186 H 225 H Calcium 8.0 L Magnesium 1.8 D Hepatitis C Antibody Hep C Ab Comment 10/28/23 10/28/23 10/27/23 16:04 10:37 10:41 WBC RBC Hgb Hct MCV MCH MCHC RDW Plt Count MPV Neut % (Auto) Lymph % (Auto) [place] % (Auto) Eos % (Auto) Baso % (Auto) Neut # (Auto) Lymph # (Auto) [place] # (Auto) Eos # (Auto) Baso # (Auto) Sodium Potassium Chloride Carbon Dioxide Anion Gap BUN Creatinine Estimated Creat Clear Estimated GFR Est GFR ( Amer) Glucose POC Glucose 247 H 258 H Calcium Magnesium Hepatitis C Antibody Non reactive Hep C Ab Comment Comment DS: Diagnosis Discharge Diagnosis (1) Hypokalemia: Status: Acute Code(s): E87.6 - Hypokalemia (2) Hypomagnesemia: Status: Acute Code(s): E83.42 - Hypomagnesemia (3) KJ (acute kidney injury): Status: Acute Code(s): N17.9 - Acute kidney failure, unspecified (4) HLD (hyperlipidemia): Status: Acute Code(s): E78.5 - Hyperlipidemia, unspecified Qualifiers: Hyperlipidemia type: unspecified Qualified Code(s): E78.5 - Hyperlipidemia, unspecified (5) HTN (hypertension): Status: Acute Code(s): I10 - Essential (primary) hypertension Qualifiers: Hypertension type: unspecified Qualified Code(s): I10 - Essential (primary) hypertension (6) Diabetes mellitus: Status: Chronic Code(s): E11.9 - Type 2 diabetes mellitus without complications Qualifiers: Diabetes mellitus complication status: with other specified complication Diabetes mellitus terminal worker insulin use: with terminal worker use Diabetes mellitus type: type 2 Qualified Code(s): E11.69 - Type 2 diabetes mellitus with other specified complication; Z79.4 - intermodal dispatcher (current) use of insulin Meds Home Medications and Allergies Home Medications ?Medication ?Instructions ?Recorded ?Confirmed ?Type atorvastatin 40 mg tablet 40 mg PO HS 04/22/23 10/27/23 History paroxetine HCl 40 mg tablet 40 mg PO DAILY 04/22/23 10/27/23 History aspirin 81 mg chewable tablet 81 mg PO DAILY 05/08/23 10/27/23 History levothyroxine 25 mcg tablet 25 mcg PO DAILYDM 05/29/23 10/27/23 History hydrocodone 5 mg-acetaminophen 325 1 tab PO BIDP PRN Pain, Moderate 07/04/23 10/27/23 Rx mg tablet #60 tabs allopurinol 300 mg tablet 300 mg PO DAILY 09/06/23 10/27/23 History carbidopa 25 mg-levodopa 100 mg 1 tab PO QID 09/06/23 10/27/23 History tablet gabapentin 400 mg capsule 400 mg PO BIDP PRN Neuropathic pain 09/06/23 10/27/23 History losartan 100 mg tablet 100 mg PO DAILY 09/06/23 10/27/23 History omeprazole 20 mg capsule,delayed 20 mg PO BID 09/06/23 10/27/23 History release quetiapine 100 mg tablet 100 mg PO HS 09/06/23 10/27/23 History trazodone 50 mg tablet 50 mg PO HS 09/06/23 10/27/23 History insulin aspart U-100 100 unit/mL 8 unit (0.08 mL) SQ QPMWITHMEAL 09/07/23 10/27/23 Rx (3 mL) subcutaneous pen (Novolog #15 mL FlexPen U-100 Insulin aspart) insulin glargine 100 unit/mL (3 35 unit (0.35 mL) SQ DAILY 30 days 09/07/23 10/27/23 Rx mL) subcutaneous pen (Lantus #15 mL Solostar U-100 Insulin) magnesium oxide 400 mg (241.3 mg 400 mg PO DAILY 30 days #30 tabs 09/07/23 10/27/23 Rx magnesium) tablet potassium chloride 20 mEq 40 meq (2 x 20 mEq) PO DAILY 30 09/07/23 10/27/23 Rx tablet,extended days #60 tabs release(part/cryst) (Klor-Con M) carvedilol 25 mg tablet 12.5 mg (1/2 x 25 mg) PO BID 30 10/29/23 10/27/23 Rx days #30 tabs furosemide 40 mg tablet (Lasix) 40 mg PO .qod 30 days #15 tabs 10/29/23 Rx New Prescriptions to Start Prescriptions: furosemide [Lasix] Frederick Chinchilla Allergies Allergy/AdvReac Type Severity Reaction Status Date / Time No Known Allergies Allergy Verified 03/06/23 14:00 Discharge Plan Disposition Patient Disposition: Home Health Service Condition: Fair Discharge Order Discharge Orders: Discharge Order (Routine); Ordered 10/29/23 Ordered By: Frederick Chinchilla Follow up Plan Follow up with: Provider,Referral, MD [Primary Care Provider] - Enter time for follow up (pcp no longer a provider with hospital) Prescriptions/Medication Reconciliation: New furosemide [Lasix] 40 mg tablet 40 mg PO .qod 30 Days Qty: 15 0RF Continued hydrocodone-acetaminophen 5-325 mg tablet 1 tab PO BIDP PRN (Reason: Pain, Moderate) Qty: 60 0RF atorvastatin 40 mg tablet 40 mg PO HS paroxetine HCl 40 mg tablet 40 mg PO DAILY aspirin 81 mg tablet,chewable 81 mg PO DAILY levothyroxine 25 mcg tablet 25 mcg PO DAILYDM trazodone 50 mg tablet 50 mg PO HS Rx Instructions: TAKE 1 TABLET AT BEDTIME NIGHTLY FOR INSOMNIA gabapentin 400 mg capsule 400 mg PO BIDP PRN (Reason: Neuropathic pain) Rx Instructions: TAKE 1 CAPSULE TWICE A DAY NEEDED FOR PAIN quetiapine 100 mg tablet 100 mg PO HS Rx Instructions: TAKE 1 TABLET AT BEDTIME NIGHTLY FOR MOOD omeprazole 20 mg capsule,delayed release(DR/EC) 20 mg PO BID Rx Instructions: TAKE 1 CAPSULE TWICE A DAY FOR ACID REFLUX allopurinol 300 mg tablet 300 mg PO DAILY Rx Instructions: TAKE 1 TABLET DAILY FOR GOUT carbidopa-levodopa 25-100 mg tablet 1 tab PO QID Rx Instructions: TAKE 1 TABLET FOUR TIMES A DAY FOR TREMORS losartan 100 mg tablet 100 mg PO DAILY Rx Instructions: TAKE 1 TABLET DAILY potassium chloride [Klor-Con M20] 20 mEq Tablet,Er Particles/Crystals 40 meq PO DAILY 30 Days Qty: 60 0RF magnesium oxide 400 mg (241.3 mg magnesium) Tablet 400 mg PO DAILY 30 Days Qty: 30 0RF insulin aspart U-100 [Novolog FlexPen U-100 Insulin] 100 unit/mL (3 mL) insulin pen 8 unit SQ QPMWITHMEAL Qty: 15 0RF Rx Instructions: 10 unit subcutaneously with dinner insulin glargine [Lantus Solostar U-100 Insulin] 100 unit/mL (3 mL) insulin pen 35 unit SQ DAILY 30 Days Qty: 15 0RF Changed carvedilol 25 mg tablet 12.5 mg PO BID 30 Days Qty: 30 0RF Problem Reconciliation Problems Reviewed?: Yes Patient Discharge Instructions ACTIVITY: Continue current activity DIET: continue same diet Patient Instructions: DI for Hypokalemia, DI for Hypomagnesemia Print Language: Amharic Providers Primary Care Provider: Provider,Referral Admit Provider: Rick Martinez Attending Provider: Rick Martinez
--- NOTE | 2023-10-29 09:55 | SW/DCPLANNER ---
Addendum entered by Guerline Angel 10/29/23 13:12: Brent w/ [facility] stated that services will resume. Original Note: I spoke w/ patient and his daughter (Rita) regarding plans once medically stable for discharge. PT/OT evaluated patient and recommended returning home w/ daughter and home health services. Patient and daughter are agreeable to this plan. Patient is currently established w/ [facility]. I will fax updated order/information at time of discharge. Discharge date is unknown at this time.
--- NOTE | 2023-10-29 11:54 | HMH.PTEV ---
Physical Therapy Evaluation Rehab PT IP Evaluation Start: 10/28/23 11:29 Freq: ONCE Status: Active Protocol: Document 10/29/23 11:33 RIVKA (Rec: 10/29/23 11:54 RIVKA [id number]) Subjective/History History History Per H&P: Tomas Crocker is a 78- year-old male with a medical history significant for Parkinson's dementia, hypertension, hyperlipidemia, insulin-dependent diabetes, hypothyroidism, anxiety/ depression who presented via EMS after noticed increased weakness. Per patient, this has been ongoing for a few days with no significant change in p.o. intake. Denies chest pain, shortness of breath, abdominal pain, dysuria. No recent changes in medications. Workup in the ED significant for potassium 2.9, magnesium 0.7, and UA positive for protein, blood, leukocyte esterase, WBC . He was started on IV potassium 10 mill equivalents drip, and given mag sulfate 2 g. Case was discussed with the ED provider and decision was made to admit patient for severe electrolyte abnormalities and generalized weakness. Subjective Subjective Pt reports he lives with his daughter in a mobile home with ramped entrance. Pt uses a RW and w/c for mobility. Pt reports one fall in past month . Pt usually IND with mobility but occasionally requires his daughter's assistance. New diagnosis of cancer in past 12 No months? Rehab PT IP Eval Objective Appearance Patient Behavior Appropriate,Cooperative Patient Orientation Person,Situation Difficulty following instructions none Speech Pattern Clear Ambulation Patient Able to Ambulate Yes Ambulation Observation IP General Gait Pattern Observation Ataxic Gait Ambulation Distance (feet) 50 Ambulation Assistive Device Rolling Walker Ambulation Ability Contact Guard/Hand Hold Balance Ability to Arise Able, uses arms to help Sitting Balance Steady, safe Standing Balance Steady, wide stance Transfers Bed Transfer Ability Supervision/Stand by Sit to Stand Bed Transfer Ability Contact Guard/Hand Hold Rehab PT IP prob,goals,plan Problems Date of Evaluation: 10/29/23 PT IP Problems Bed Mobility,Transfers,Gait, Balance,Safety Rehab Potential Rehab Potential Good Equipment Needs Assistive Devices Rolling / Wheeled Walker Plan PT Intervention Plan Gait,Balance,Safety, Therapeutic Exercise Other Intervention Plan 1-2 times PT Plan Frequency Daily Duration LOS Discharge Goals Bed Transfer Ability Independent Sit to Stand Chair Transfer Ability Independent Ambulation Assistive Device Rolling Walker Ambulation Distance (feet) 100 Discharge Plan PT Discharge Plan Initial physical therapy evaluation performed. Patient presents below baseline at this time in functional mobility, transfers, gait, and strength. Pt would benefit from skilled PT while at [facility] to prevent further functional decline and maximize safety with mobility. Pt safe to d/c home when deemed medically necessary if his daughter is able to provide 24/ assistance. If pt unable to have help or SPV 24/, PT recommending rehab placement d /t gait and dynamic standing balance impairments. PT recommending home health PT services to address deficits. Eval Complexity Eval Charge Codes 98694 - Moderate Complexity PHYSICIAN CERTIFICATION: I certify the specified therapy services for Tomas Crocker are required, authorized, and reviewed every 30 days.
[2023-10-29 12:14] LABS: POC Glucose,Bedside 143 (70-110)
--- NOTE | 2023-10-29 17:50 | CA_ITS ---
APPROVED REPORT EXAM: Comprehensive 2D, Doppler, and color-flow Echocardiogram Security Lead: Iris Quan CRT Ht: 211 ft 0 in Wt: 180lbs BSA: 26.91 BP: 169/77 mmHg Indications: Congestive Heart Failure, Diabetes, Hyperlipidemia, Hypertension/HDD, gout, ckd, parkinson's, dementia 2D Dimensions LA Volume 35.80 mL M-Mode Dimensions RVDd 2.39 cm (0.9-2.6) LA Diam 3.30 cm (1.9-4.0) LVDd 4.50 cm (3.5-5.7) LVDs 3.11 cm (3.5-5.7) IVSd 2.07 cm (0.6-1.1) PWd 0.93 cm (0.6-1.1) EF (Teich) 58.70% FS 30.90% EDV (Teich) 92.40 mL TAPSE 2.97 (<1.7) ESV (Teich) 38.20 mL LV Diastology E Decel Time 380 (160-240 msec) E/A Ratio 0.93 MED A' 10.10 cm/s LAT A' 10.20 cm/s Aortic Valve AO Peak GR. 6.70 mmHg Mitral Valve MV A Velocity 82.0 (40-130 cm/s) E/A Ratio 0.93 Pulmonary Valve PV Peak Velocity 115.0 (50-150 cm/s) Tricuspid Valve TR P. Velocity 262.00 cm/s RAP Estimate 10.00 mmHg RVSP 37.40 mmHg Left Ventricle The left ventricle is normal size. The left ventricular systolic function is normal. The left ventricular ejection fraction is within the normal range. There is increased LV wall thickness. There is normal LV segmental wall motion. Transmitral Doppler flow pattern suggests impaired LV relaxation. LVEF is 60%. Right Ventricle Right ventricle is mildly dilated. The right ventricular systolic function is normal. Atria The left atrium size is normal. The right atrium size is normal. There is no Doppler evidence of interatrial shunt. Aortic Valve The aortic valve is mildly thickened. There is no aortic valvular stenosis. No aortic regurgitation is present. Mitral Valve The mitral valve leaflets are mildly thickened. No evidence of mitral valve stenosis. Trace mitral regurgitation. Tricuspid Valve The tricuspid valve leaflets are thin and pliable. Trace tricuspid regurgitation. There is insufficient TR jet to estimate RVSP. Pulmonic Valve The pulmonary valve is normal in structure. Trace pulmonic regurgitation. Great Vessels The aortic root is normal in size. The ascending aorta is normal in size. IVC is normal in size and collapses >50% with inspiration. Pericardium There is no pericardial effusion. Other Information Study Quality: Fair Conclusion Normal biventricular systolic function. Mild RV dilation. No significant valvular stenosis or regurgitation. Electronically signed by : Sunitha Pak MD 10/29/2023 09:23:32
--- NOTE | 2023-10-30 14:20 | CARE MANAGER ---
Contacted patient related to hospital discharge. Patient states he is doing better. He has new medication and is aware of the change in his Carvedilol. He has an appointment this week with MD. Denies questions or concerns. GLENYS Parkinson
[2023-11-01 02:37] LABS: POC Glucose,Bedside 243 (70-110)
--- OUTSIDE RECORDS SUMMARY | 2023-11-20 10:06 | XMS_ITS | Continuity of Care Document ---
Author Organization [facility] urgeons Address [address] [place] [address] Phone Care Team Providers Care Senior Materials Analyst Name Role Phone Erasmo Lizama MD Unavailable [...] Diagnoses Date Provider Providers Copied on Encounter [facility] , [address] [facility], [place], [address], [place] tel:[phone] [facility] No Information [address] [place] [address], [address]. tel: [phone] [facility] , [address] [place] [address], [facility], tel:[phone] [place] [facility] diabetes (chief complaint) Cataract (chief complaint) Diabetes with ophthalmic manifestations, type II or unspecified type, uncontrolledMild nonproliferative diabetic retinopathySenile nuclear sclerosisVitreous degenerationMacul ar puckering of retina [address] [place] [address], [address]. tel: [phone] [facility] , [address] [place] [address], [facility], tel:[phone] [place] [facility] Diabetes Mellitus, Adult Onset, UncontrolledSenil e nuclear sclerosisVitreous degeneration [address] [place] [address], [facility]. tel: [phone] [facility] , [address] [place] [address], [facility], [place] tel:[phone] [facility] No Information [address] [place] [address], [facility]. tel: [phone] Referring Provider: MELLISA Joe, [address] [place] [address] [address], [place], [address]. tel:[phone] Family History Family Member Type Diagnosis Age [...] Assessmen t No Information Instructions Date Instruction Rob gomez - Diabetes type II: mild nonproliferative [...]
== END 2023-10-29 12:48 | disposition home health service (06) | DRG 291 ==
LOC: ER 11:10 → 2ND 14:37
PROVIDERS: Admitting Provider Student in an Organized Health Care Education/Training Program; Emergency Provider Student in an Organized Health Care Education/Training Program; Visit Provider Student in an Organized Health Care Education/Training Program
DX: I13.0 Hypertensive heart and chronic kidney disease with heart failure and stage 1 through stage 4 chronic kidney disease, or unspecified chronic kidney disease (principal); I50.33 Acute on chronic diastolic (congestive) heart failure; N17.9 Acute kidney failure, unspecified; N18.4 Chronic kidney disease, stage 4 (severe); E78.5 Hyperlipidemia, unspecified; E87.6 Hypokalemia; E83.42 Hypomagnesemia; Z79.4 Long term (current) use of insulin; Z79.899 Other long term (current) drug therapy; E03.9 Hypothyroidism, unspecified; G20.A1 Parkinson's disease without dyskinesia, without mention of fluctuations; F02.80 Dementia in other diseases classified elsewhere, unspecified severity, without behavioral disturbance, psychotic disturbance, mood disturbance, and anxiety; Z74.1 Need for assistance with personal care; E11.22 Type 2 diabetes mellitus with diabetic chronic kidney disease
CPT/HCPCS: 36415; 71045; 80048; 80053; 81001; 82550; 82962; 83735; 83880; 84100; 85025; 86803; 87086; 87389; 87636; 93005; 93306; 97162; 99285; J1644; J1940; J2405; J3475; J3480

== ENCOUNTER 2024-03-16 11:29 | Inpatient (IN) | payer MEDICARE, OTHER, SELFPAY ==
[2024-03-16] VITALS (10 sets, daily range): BP systolic 168–213; BP diastolic 1–90; PULSE 60–78; RESP 12–16; TEMP 36.6–37.7; O2SAT 96–99; BMI 26.7; BMI 25.5
--- NOTE | 2024-03-16 12:07 | ED_ITS ---
<Statement entered by Al Sheth MD - 03/16/24 14:49> I was consulted by the JOLIE, and we discussed the complexity of the problems being addressed. I approved the treatment and management plan for this patient's care in the emergency department, thus performing a substantive portion of the medical decision making. Patient has urinary tract infection with concomitant obstructive uropathy which has been decompressed with a Lalen and treated with 1 g of ceftriaxone. There is also hypomagnesemia and hypokalemia which are being repleted IV. Patient admitted in stable condition. Al Sheth MD Discharge Plan Disposition Patient Disposition: Admitted Condition: Fair Prescriptions Prescriptions: No Action hydrocodone-acetaminophen 5-325 mg tablet 1 tab PO BIDP PRN (Reason: Pain, Moderate) Qty: 60 0RF atorvastatin 40 mg tablet 40 mg PO HS paroxetine HCl 40 mg tablet 40 mg PO DAILY aspirin 81 mg tablet,chewable 81 mg PO DAILY levothyroxine 25 mcg tablet 25 mcg PO DAILYDM trazodone 50 mg tablet 50 mg PO HS Rx Instructions: TAKE 1 TABLET AT BEDTIME NIGHTLY FOR INSOMNIA quetiapine 100 mg tablet 100 mg PO HS Rx Instructions: TAKE 1 TABLET AT BEDTIME NIGHTLY FOR MOOD omeprazole 20 mg capsule,delayed release(DR/EC) 20 mg PO BID Rx Instructions: TAKE 1 CAPSULE TWICE A DAY FOR ACID REFLUX allopurinol 300 mg tablet 300 mg PO DAILY Rx Instructions: TAKE 1 TABLET DAILY FOR GOUT carbidopa-levodopa 25-100 mg tablet 1 tab PO QID Rx Instructions: TAKE 1 TABLET FOUR TIMES A DAY FOR TREMORS losartan 100 mg tablet 100 mg PO DAILY Rx Instructions: TAKE 1 TABLET DAILY potassium chloride [Klor-Con M20] 20 mEq Tablet,Er Particles/Crystals 40 meq PO DAILY 30 Days Qty: 60 0RF magnesium oxide 400 mg (241.3 mg magnesium) Tablet 400 mg PO DAILY 30 Days Qty: 30 0RF insulin aspart U-100 [Novolog FlexPen U-100 Insulin] 100 unit/mL (3 mL) insulin pen 8 unit SQ QPMWITHMEAL Qty: 15 0RF Rx Instructions: 10 unit subcutaneously with dinner insulin glargine [Lantus Solostar U-100 Insulin] 100 unit/mL (3 mL) insulin pen 35 unit SQ DAILY 30 Days Qty: 15 0RF carvedilol 25 mg tablet 12.5 mg PO BID 30 Days Qty: 30 0RF furosemide [Lasix] 40 mg tablet 40 mg PO .qod 30 Days Qty: 15 0RF Referrals Follow up/Referrals: Provider,Referral, MD [Referring] - See instructions Clinical Impressions Clinical Impression: Hypomagnesemia, Hypocalcemia, Hypokalemia, Pyelonephritis, Bladder outlet obstruction Instructions Patient Instructions: DI for Diarrhea and Traveler's Diarrhea -- Adult, DI for Diarrhea and Traveler's Diarrhea -- Child, DI for Nausea -- Adult, DI for Nausea -- Child Print Language Print Language: Thai Discharge ED Provider: Al Sheth General Adult HPI General Chief complaint: Nausea/Vomiting/Diarrhea Stated complaint: VOMITING Time Seen by Provider: 03/16/24 11:34 Mode of Arrival: EMS Source of Information: Patient Limitations: No Limitations Description of Symptoms (Recalled from ER Triage Doc. by RN): EMS reports the patient vomited one time and family requested he come to the er. Patient with no complaints. History of Present Illness HPI narrative: Patient presents for evaluation of nausea vomiting. Patient has had nausea and vomiting and intolerance of oral intake for 24 hours. He denies any other constitutional symptoms including abdominal pain chest pain cough shortness of breath fever chills hemoptysis hematochezia melena diarrhea. Patient states his last bowel movement was on Sunday and that he has not passed gas at all this weekend. Related Data Home Medications ?Medication ?Instructions ?Recorded ?Confirmed atorvastatin 40 mg tablet 40 mg PO HS 04/22/23 03/16/24 paroxetine HCl 40 mg tablet 40 mg PO DAILY 04/22/23 10/27/23 aspirin 81 mg chewable tablet 81 mg PO DAILY 05/08/23 03/16/24 levothyroxine 25 mcg tablet 25 mcg PO DAILY 05/29/23 10/27/23 allopurinol 300 mg tablet 300 mg PO DAILY 09/06/23 03/16/24 carbidopa 25 mg-levodopa 100 mg 1 tab PO QID 09/06/23 03/16/24 tablet losartan 100 mg tablet 100 mg PO DAILY 09/06/23 10/27/23 omeprazole 20 mg capsule,delayed 20 mg PO BID 09/06/23 03/16/24 release quetiapine 100 mg tablet 100 mg PO HS 09/06/23 03/16/24 trazodone 50 mg tablet 50 mg PO HS 09/06/23 03/16/24 Previous Rx's ?Medication ?Instructions ?Recorded hydrocodone 5 mg-acetaminophen 325 1 tab PO BIDP PRN Pain, Moderate 07/04/23 mg tablet #60 tabs insulin aspart U-100 100 unit/mL 8 unit (0.08 mL) SQ QPMWITHMEAL 09/07/23 (3 mL) subcutaneous pen (Novolog #15 mL FlexPen U-100 Insulin aspart) insulin glargine 100 unit/mL (3 35 unit (0.35 mL) SQ DAILY 30 days 09/07/23 mL) subcutaneous pen (Lantus #15 mL Solostar U-100 Insulin) magnesium oxide 400 mg (241.3 mg 400 mg PO DAILY 30 days #30 tabs 09/07/23 magnesium) tablet potassium chloride 20 mEq 40 meq (2 x 20 mEq) PO DAILY 30 09/07/23 tablet,extended days #60 tabs release(part/cryst) (Klor-Con M) carvedilol 25 mg tablet 12.5 mg (1/2 x 25 mg) PO BID 30 10/29/23 days #30 tabs furosemide 40 mg tablet (Lasix) 40 mg PO .qod 30 days #15 tabs 10/29/23 Allergies Allergy/AdvReac Type Severity Reaction Status Date / Time No Known Allergies Allergy Verified 03/06/23 14:00 [facility] Disclaimer: The information contained in this section may have been updated after the patient was seen, as this information can be updated by other users. Medical History GERD (gastroesophageal reflux disease) Gout Insomnia CKD (chronic kidney disease) Decreased mobility History of osteomyelitis Osteomyelitis Surgical History History of amputation of toe History of colonoscopy History of laparoscopic cholecystectomy Family History Other No significant family history Social History Smoking Status: Unknown if ever smoked alcohol intake: never substance use type: denies use current occupational status: unemployed Travel in the last 8 weeks: None household members: family housing: house number of children: 1 caffeine: Yes Have you lived/traveled outside [place] in past 30 days?: No Contact w/someone who lives/traveled outside US past 30 days?: No Exposure to someone with infectious disease in past 14 days?: No Do you have a fever (greater than 100.4 F or 38 C)?: No Have you tested positive for COVID-19: No Exposed to someone with COVID-19 in past 14 days?: No Do you have a sore throat?: No Do you have a cough?: No Do you have any weakness?: No Do you have any diarrhea?: No Are you experiencing any unusual bleeding?: No Do you have any muscle aches/pain?: No Do you have any abdominal pain?: No Are you experiencing loss of taste or smell?: No Other Medical History Have you received the Flu Vaccine for this season: No Have you received the Pneumonia Vaccine: No ROS Obtained: Yes Systems reviewed as appropriate & no additional complaints except as documented Physical Exam General General appearance: alert and in no apparent distress Respiratory Respiratory exam: Present normal lung sounds bilaterally Cardiovascular Cardiovascular exam: Present regular rate Neurological Exam Neurological exam: Present alert and oriented X3 Medical Decision Making Medical Records Medical records reviewed: Yes I reviewed the patient's medical records. Screening: Per USPSTF and CDC recommendations, given the prevalence of disease in our region, it is our hospital?s policy to screen for HIV and viral Hepatitis for all patients aged 18 and over and those with ongoing risk factors. Simone Inquiry Pt receiving controlled substance: No Vital Signs: 03/16/24 11:29 03/16/24 12:30 03/16/24 13:08 Temperature 99.8 F H Temperature Source Oral Pulse Rate 60 62 Pulse Rate [Radial] 68 Respiratory Rate 16 Blood Pressure 197/87 H 195/79 H Blood Pressure [Right Arm] 168/77 H Blood Pressure Mean [Right Arm] 107 Blood Pressure Source [Right Arm] Automatic Cuff Blood Pressure Position [Right Arm] Sitting 02 Sat by Pulse Oximetry 98 97 96 Oxygen Delivery Method Room Air Room Air Room Air 03/16/24 13:30 03/16/24 14:00 03/16/24 14:30 Temperature Temperature Source Pulse Rate 63 68 67 Pulse Rate [Radial] Respiratory Rate 12 12 Blood Pressure 184/73 H 209/1 H 213/90 H Blood Pressure [Right Arm] Blood Pressure Mean [Right Arm] Blood Pressure Source [Right Arm] Blood Pressure Position [Right Arm] 02 Sat by Pulse Oximetry 99 96 98 Oxygen Delivery Method Room Air Room Air Room Air Lab Data Lab results reviewed: Yes I reviewed the patient's lab results. Lab Results 03/16/24 11:31: WBC 7.3, RBC 3.98 L, Hgb 11.1 L, Hct 34.7 L, MCV 87.2, MCH 27.9, MCHC 32.0, RDW 13.5, Plt Count 153, MPV 10.5 H, Neut % (Auto) 76.8, Lymph % (Auto) 11.5, [place] % (Auto) 9.7 H, Eos % (Auto) 0.5, Baso % (Auto) 1.0, Neut # (Auto) 5.6, Lymph # (Auto) 0.8, [place] # (Auto) 0.7, Eos # (Auto) 0.0, Baso # (Auto) 0.1, Sodium 135 L, Potassium 3.0 L, Chloride 91 L, Carbon Dioxide 36 H, Anion Gap 11.0, BUN 12, Creatinine 1.90 H, Estimated Creat Clear 41, Estimated GFR 35 L, Est GFR ( Amer) 42 L, Glucose 207 H, Calcium 7.4 L, Magnesium 0.9 L, Total Bilirubin 0.5, AST 21, ALT 9 L, Alkaline Phosphatase 109, Total Protein 7.4, Albumin 3.5, Globulin 3.9 H, Albumin/Globulin Ratio 0.9 L, Procalcitonin 0.209, TSH 1.84, Free T4 Index 2.1 L, Thyroxine (T4) 5.7, T3 Uptake 36 03/16/24 12:20: SARS-CoV-2 (PCR) Not detected, Influenza A Untype (PCR) Not detected, Influenza Type B (PCR) Not detected 03/16/24 13:15: Urine Color Yellow, Urine Appearance Cloudy, Urine pH 6.0, Ur Specific [place] 1.020, Urine Protein 3+ A, Urine Glucose (UA) Negative, Urine Ketones Negative, Urine Blood 2+ A, Urine Nitrate Negative, Urine Bilirubin Negative, Urine Urobilinogen 0.2, Ur Leukocyte Esterase 2+ A, Urine RBC Occasional, Urine WBC 20-50, Ur Squamous Epith Cells None, Urine Bacteria 2+ 03/16/24 11:31 03/16/24 11:31 Orders (Tests/Meds): ED MEDICATIONS Generic Name Dose Route Start Last Admin Trade Name Freju PRN Reason Stop Dose Admin Potassium Chloride/Water 100 mls @ 50 mls/hr 03/16/24 12:40 03/16/24 13:10 Potassium Chloride 20meq/100ml Ivpb IV 03/16/24 18:39 50 mls/hr Q2H ESTHER Administration Ceftriaxone Sodium 1 gm/ 50 mls @ 100 mls/hr 03/16/24 14:15 Sodium Chloride IV 03/26/24 14:14 Q24H ESTHER Sodium Chloride 10 ml 03/16/24 13:00 03/16/24 13:01 Sodium Chloride 0.9% 10ml Syr (Rad Only) IV 04/15/24 12:59 10 ml NEEDED PRN Administration Maintain IV Site Discontinued Medications Generic Name Dose Route Start Last Admin Trade Name Julian PRN Reason Stop Dose Admin Lactated Ringer's 2,680 mls @ 1,340 mls/hr 03/16/24 12:13 03/16/24 12:21 Lactated Ringer's 1000 Ml Bag 30 ml/kg infuse over 2 hr (2680 ml) 03/16/24 14:12 1,340 mls/hr IV Administration .Q2H ONE Magnesium Sulfate 2 gm in 50 mls @ 50 mls/hr 03/16/24 12:29 03/16/24 13:09 Magnesium Sulfate 2gm/50ml Premix IV 03/16/24 13:28 50 mls/hr ONCE ONE Administration Calcium Gluconate/Sodium Chloride 2 gm in 100 mls @ 50 mls/hr 03/16/24 12:31 03/16/24 13:21 Calcium Gluconate 2,000mg/100ml Nacl Premix IV 03/16/24 14:30 50 mls/hr ONCE ONE Administration Iopamidol 75 ml 03/16/24 13:00 03/16/24 13:01 Iopamidol-370 (76%);100ml Bottle IV 03/16/24 13:01 75 ml ONCE ONE Administration Ondansetron HCl 4 mg 03/16/24 12:13 03/16/24 12:21 Ondansetron 4mg/2ml Vial IV 03/16/24 12:14 4 mg ONCE ONE Administration ORDERS Category Date Time Status CT abdomen pelvis w con Stat Cat Scan 03/16/24 12:13 Completed CBC w/Auto Diff [Complete Blood Count Auto Diff] Stat Lab 03/16/24 11:31 Completed CMP [Comprehensive Metabolic Panel] Stat Lab 03/16/24 11:31 Completed Magnesium Stat Lab 03/16/24 11:31 Completed Procalcitonin Stat Lab 03/16/24 11:31 Completed Rapid PCR Covid and Flu A/B Stat Lab 03/16/24 12:20 Completed Thyroid Panel Stat Lab 03/16/24 11:31 Completed UA [Urinalysis and Microscopic] Stat Lab 03/16/24 13:15 Completed Urine Culture Stat Micro 03/16/24 13:15 Received Medical Decision Narrative: In summary patient is a 78-year-old male who presents to the emergency department for evaluation of nausea vomiting. Patient has a past medical history of Parkinson's, hyperlipidemia, hypertension, diabetes mellitus, hypothyroidism, peripheral neuropathy and visual impairment.. Patient is initially normotensive at 168/77 with a pulse of 68 and normal sinus rhythm on the bedside monitor breathing 16 times a minute satting at 98% on room air upon arrival, with a temperature of 99.8. Physical exam is remarkable for very dry and cracked lips dry mucosa of the oropharynx but normal breath sounds normal heart sounds breath sounds are clear and equal bilaterally to the bases without adventitious sounds and abdomen is soft nontender without rebound or guarding or rigidity. Bowel sounds normal active. Differential diagnosis includes gastroenteritis versus other viral or bacterial infection versus constipation versus obstipation versus bowel obstruction although patient has no pain. Initial workup will be conducted with hematologic labs urinalysis CT scan abdomen pelvis urinalysis. Initial interventions include sepsis bolus Zofran. Initial workup reviewed by me shows that his white count is normal H&H are 11.1 and 34.7 and his absolute neutrophil count is 5.6, sodium 135 potassium 3.0 creatinine 1.9 GFR of 35 calcium 7.4 with a normal albumin of 3.5 and urinalysis shows 3+ protein 2+ blood negative nitrite 2+ leukocyte Estrace and microscopic exam shows occasional red blood cells 20-50 white cells 2+ bacteria and is COVID and flu are negative and my informal interpretation of his CT scan abdomen pelvis shows a very thickened slightly distended urinary bladder along with BPH and bilateral hydroureteronephrosis but no stones or any other acute intra- abdominal pathology prior to radiology read. We have ordered blood cultures even though patient is not septic with a normal white count note stable vital signs no tachycardia no fever prior to given Rocephin. I have started IV repletion of his potassium magnesium and calcium. I then had a interactive discussion with hospital medicine regarding patient VALENZUELA and patient management and he will be admitted for further evaluation and care. Critical Care Critical Care Time Critical Care Time: Yes Attestation: On 03/16/24, the high probability of a clinically significant, sudden or life threatening deterioration of the following system(s) required my full and direct attention, intervention and personal management. The time I documented below is in addition to time spent performing reported procedures but includes the following listed in this critical care notation. Total Time Total Critical Care Time: 35
--- NOTE | 2024-03-16 12:13 | CT_ITS ---
PROCEDURE INFORMATION: Exam: CT Abdomen And Pelvis With Contrast Exam date and time: 03/16/2024 12:53 PM Age: 78 years old Clinical indication: Nausea; Additional info: Nausea vomiting no bowel movement TECHNIQUE: Imaging protocol: Computed tomography of the abdomen and pelvis with contrast. Radiation optimization: All CT scans at this facility use at least one of these dose optimization techniques: automated exposure control; mA and/or kV adjustment per patient size (includes targeted exams where dose is matched to clinical indication); or iterative reconstruction. Contrast material: ISOVUE; Contrast volume: 75 ml; Contrast route: IV; COMPARISON: CT ABDOMEN PELVIS WO CON 04/21/2023 12:45 PM FINDINGS: Lungs: Calcified granulomas anterior right lung base. Otherwise clear. Liver: Liver has a subtle lobular contour. There is left lobar hypertrophy and increased fissural prominence. These are suggestive of underlying clinically significant fibrosis or cirrhosis. No focal lesion. Gallbladder and biliary ducts: Status post cholecystectomy. Intra and extrahepatic bile ducts are unremarkable. Pancreas: Normal. No ductal dilation. Spleen: Small calcified granuloma in the spleen. Splenomegaly. Adrenal glands: Normal. No mass. Kidneys and ureters: Benign-appearing bilateral renal cysts. No further follow-up needed. Left kidney is mildly edematous. No distinct patchy cortical hypoattenuation. Mild asymmetric left perinephric stranding. Moderate left hydroureteronephrosis. Mild urothelial enhancement in the left ureter. No appreciable obstructive ureteral calculus. May represent sequela of recently passed calculus. Stomach and bowel: No bowel obstruction or acute inflammation.. Appendix: The appendix is unremarkable. Intraperitoneal space: Unremarkable. No free air. No significant fluid collection. Vasculature: Unremarkable. No abdominal aortic aneurysm. Lymph nodes: Unremarkable. No enlarged lymph nodes. Urinary bladder: Moderate circumferential thickening of the bladder wall with few wall trabeculations, most suggestive of chronic outlet obstruction. Mild perivesical stranding. Recommend clinical correlation if there is concern for cystitis. Reproductive: Prostatomegaly. Bones/joints: Severe degenerative change at L5-S1. Wion-be-obtokvak degenerative change in the remainder lumbar spine. Soft tissues: Mild anasarca.. IMPRESSION: 1. There are findings suggestive of cystitis with ascending mild left ureteritis. Possible mild left pyelonephritis. Recommend correlation. Bladder wall thickening may also be due to chronic outlet obstruction, although superimposed infection not excluded. 2. Left kidney is mildly edematous. No distinct patchy cortical hypoattenuation. Mild asymmetric left perinephric stranding. Moderate left hydroureteronephrosis. Mild urothelial enhancement in the left ureter. No appreciable obstructive ureteral calculus. May represent sequela of recently passed calculus. 3. No bowel obstruction or acute inflammation. 4. Liver has a subtle lobular contour. There is left lobar hypertrophy and increased fissural prominence. These are suggestive of underlying clinically significant fibrosis or cirrhosis. No focal lesion. Outpatient ultrasound or MRI can be considered for surveillance of HCC according to clinical discretion. COMMENTS: Consistent with the [employer]'s Incidental Findings Committee white paper (J Am Jovita Radiol 2018): Any incidental renal lesion less than 1 cm or classified as too small to characterize, or any incidental cystic renal lesion characterized as simple-appearing, is likely benign. No follow-up imaging is recommended for these lesions per consensus recommendations based on imaging criteria.
[2024-03-16 12:19] LABS: Basophils # 0.1 K/mm3 (0-0.2); Eosinophils % 0.5 % (0.1-12.0); Hematocrit 34.7 % (42.0-52.0); Hemoglobin 11.1 g/dL (14.1-18.0); Lymphocytes # 0.8 K/mm3 (0.7-4.5); Lymphocytes % 11.5 % (10-50); Mean Corpuscular Hemoglobin 27.9 pg (27.0-31.2); Mean Corpuscular Volume 87.2 fl (80-94); Mean Platelet Volume 10.5 fl (7.4-10.4); Monocytes # 0.7 K/mm3 (0.1-1.0); Monocytes % 9.7 % (1.7-9.3); Neutrophils # 5.6 K/mm3 (1.8-7.8); Neutrophils % 76.8 % (37.0-80.0); Platelet Count 153 K/mm3 (142-424); Red Blood Count 3.98 M/mm3 (4.60-6.20); Red Cell Distribution Width 13.5 % (11.5-17.5); White Blood Count 7.3 K/mm3 (4.8-10.8)
[2024-03-16] MEDS: LACTATED RINGERS 1340 ML IV (12:21)
[2024-03-16] MEDS: ONDANSETRON 4MG/2ML VIAL 4 MG IV (12:21)
[2024-03-16 12:25] LABS: Alanine Aminotransferase 9 U/L (12-78); Albumin Level 3.5 g/dl (3.5-5.0); Albumin/Globulin Ratio 0.9 (1.1-1.8); Alkaline Phosphatase 109 U/L (38-126); Aspartate Amino Transferase 21 U/L (17-59); Bilirubin,Total 0.5 mg/dl (0.2-1.3); Blood Urea Nitrogen 12 mg/dl (9-20); Calcium 7.4 mg/dl (8.4-10.2); Carbon Dioxide 36 mmol/L (22.0-30.0); Chloride 91 mmol/L (98-107); Creatinine Clearance Estimated 41 mL/min (50-200); Estimated Glomerular Filt Rate 35 ml/min (>60); GFR (African American) 42 ML/MIN (>60); Globulin 3.9 g/dL (1.3-3.2); Glucose 207 mg/dl (74-100); Sodium 135 mmol/L (136-145); Total Protein,Serum 7.4 g/dl (6.3-8.2)
[2024-03-16 12:26] LABS: Coronavirus 19, PCR Not Detected (NotDetected); Influenza A, PCR Not Detected (NotDetected); Influenza B, PCR Not Detected (NotDetected)
[2024-03-16 12:29] LABS: Magnesium 0.9 mg/dl (1.6-2.3)
--- NOTE | 2024-03-16 12:29 | PC.NURSE ---
NOTIED ER PROVIDER OF CRITICAL LAB FINDING OF MAG 0.9
--- NOTE | 2024-03-16 12:36 | PC.NURSE ---
rounded on patient. put purewick on
[2024-03-16 12:42] LABS: Procalcitonin 0.209 ng/mL (0.0-2.0)
[2024-03-16 12:46] LABS: Free Thyroxine Index 2.1 ug/dL (5.93-13.13); T4 (Thyroxine) 5.7 ug/dl (5.53-11.0); Triiodothryronine (T3) Uptake 36 % (23.5-40.5)
[2024-03-16 13:00] LABS: Thyroid Stimulating Hormone 1.84 uIU/mL (0.465-4.68)
[2024-03-16] MEDS: IOPAMIDOL-370 (76%);100ML BOTTLE 75 ML IV (13:01)
[2024-03-16] MEDS: SODIUM CHLORIDE 0.9% 10ML SYR (RAD ONLY) 10 ML IV (13:01)
[2024-03-16] MEDS: MAGNESIUM SULFATE IN WATER 2 GM/50 ML PIGGYBACK IV (13:09)
[2024-03-16] MEDS: KCl 20mEq/100ml 100 ML 50 MEQ IV ×3 (13:10→18:01)
[2024-03-16] MEDS: CALCIUM GLUC IN NACL, ISO-OSM 2 GM/100 ML BAG IV (13:21)
[2024-03-16 13:24] LABS: Microscopic, Urine URINE MICROSCOPIC (MICROSCOPIC)
[2024-03-16 13:26] LABS: Appearance,Urine CLOUDY (Clear); Bilirubin,Urine Negative (Negative); Blood, Urine 2+ (Negative); Color,Urine YELLOW (Yellow); Glucose,Urine (UA) Negative (Negative); Ketones,Urine Negative (Negative); Leukocyte Esterase,Urine 2+ (Negative); Nitrate,Urine Negative (Negative); Protein,Urine 3+ (Negative); Urobilinogen,Urine 0.2 EU/dl (0.2)
--- NOTE | 2024-03-16 13:50 | PC.NURSE ---
ROUNDED ON THE PT. THE PT VOICES THAT HE DOES NOT NEED ANYTHING AT THIS TIME. CALL LIGHT IS WITHIN REACH OF THE PT. DAUGHTER IS PRESENT AT THE BEDSIDE.
[2024-03-16 14:06] LABS: Bacteria,Urine 2+ /lpf; RBC,Urine Occasional #/hpf (0-3); WBC,Urine 20-50 #/hpf (0-3)
--- NOTE | 2024-03-16 14:19 | PC.NURSE ---
BLADDER SCAN REVEALED > 432ML. DEEDEE MARINO NOTIFIED OF THIS AND ORDERED INDWELLING CARBALLO CATH PLACEMENT.
--- NOTE | 2024-03-16 14:29 | PC.NURSE ---
MARIBEL KING AT BEDSIDE TO UPDATE DAUGHTER ON POC
--- NOTE | 2024-03-16 14:41 | PC.NURSE ---
DISHING MACHINE OPERATOR NOTIFIED OF ADMISSION
--- NOTE | 2024-03-16 14:41 | P.HP_ITS ---
History of Present Illness *Admission Date: 03/16/24 *Reason for visit:: Nausea, vomiting. UTI *History of present illness: Mr. Crocker is a 78-year-old male with history significant for Parkinson's dementia, hypertension, hyperlipidemia, insulin-dependent diabetes, hypothyroidism, anxiety/depression who presented via EMS due to onset of nausea and vomiting and weakness. Patient reports chills and subjective fever. Denies cough or chest pain. States has been having increased difficulty urinating. Patient denies much p.o. intake over the past 24 hours. Threw up his meds this morning. Complaining of some mild lower abdominal pain. Workup in the ER, white count is normal. Imaging of abdomen however shows thickened bladder wall and concern for pyelonephritis. Urine grossly abnormal. Has had previous UTIs with mixed resistance. Patient was started on broad-spectrum antibiotics for pyelonephritis. Catheter placed for obstructive process. Medicine consulted for admission and further management. On arrival to the floor, patient states he feels little bit better after placement of catheter. Has had 1500 cc of blood-tinged urine output. Remains afebrile and hemodynamically stable. Alert and oriented to self and place. [facility] Disclaimer: The information contained in this section may have been updated after the patient was seen, as this information can be updated by other users. Medical History Hypothyroid Parkinson disease Neuropathy Diabetes mellitus UTI (urinary tract infection) HLD (hyperlipidemia) HTN (hypertension) GERD (gastroesophageal reflux disease) Gout Insomnia CKD (chronic kidney disease) Decreased mobility History of osteomyelitis Osteomyelitis Surgical History History of amputation of toe History of colonoscopy History of laparoscopic cholecystectomy Family History Other Family history of esophageal cancer Social History Smoking Status: Former smoker tobacco type: cigarettes packs per day: 3 alcohol intake: never substance use type: denies use current occupational status: retired Travel in the last 8 weeks: None household members: family housing: house number of children: 1 caffeine: Yes Have you lived/traveled outside [place] in past 30 days?: No Contact w/someone who lives/traveled outside US past 30 days?: No Exposure to someone with infectious disease in past 14 days?: No Do you have a fever (greater than 100.4 F or 38 C)?: No Have you tested positive for COVID-19: No Exposed to someone with COVID-19 in past 14 days?: No Do you have a sore throat?: No Do you have a cough?: No Do you have any weakness?: No Do you have any diarrhea?: No Are you experiencing any unusual bleeding?: No Do you have any muscle aches/pain?: No Do you have any abdominal pain?: No Are you experiencing loss of taste or smell?: No Other Medical History Have you received the Flu Vaccine for this season: No Have you received the Pneumonia Vaccine: No Review of Systems Review of Systems Review of systems (narrative): 14 point review of systems performed, pertinent positives and negatives as per HPI Meds Home Medications and Allergies Home Medications ?Medication ?Instructions ?Recorded ?Confirmed ?Type atorvastatin 40 mg tablet 40 mg PO HS 04/22/23 03/16/24 History paroxetine HCl 40 mg tablet 40 mg PO DAILY 04/22/23 03/16/24 History aspirin 81 mg chewable tablet 81 mg PO DAILY 05/08/23 03/16/24 History hydrocodone 5 mg-acetaminophen 325 1 tab PO BIDP PRN Pain, Moderate 07/04/23 03/16/24 Rx mg tablet #60 tabs allopurinol 300 mg tablet 300 mg PO DAILY 09/06/23 03/16/24 History carbidopa 25 mg-levodopa 100 mg 1 tab PO QID 09/06/23 03/16/24 History tablet losartan 100 mg tablet 100 mg PO DAILY 09/06/23 03/16/24 History omeprazole 20 mg capsule,delayed 20 mg PO BID 09/06/23 03/16/24 History release quetiapine 100 mg tablet 100 mg PO HS 09/06/23 03/16/24 History trazodone 50 mg tablet 50 mg PO HS 09/06/23 03/16/24 History carvedilol 25 mg tablet 12.5 mg (1/2 x 25 mg) PO BID 30 10/29/23 03/16/24 Rx days #30 tabs gabapentin 400 mg capsule 800 mg PO HS 03/16/24 03/16/24 History insulin aspart U-100 100 unit/mL 20 unit SQ QPMWITHMEAL 03/16/24 03/16/24 History (3 mL) subcutaneous pen (Novolog FlexPen U-100 Insulin aspart) insulin glargine 100 unit/mL (3 50 unit SQ DAILY 03/16/24 03/16/24 History mL) subcutaneous pen (Lantus Solostar U-100 Insulin) New Prescriptions to Start Prescriptions: Allergies Allergy/AdvReac Type Severity Reaction Status Date / Time No Known Allergies Allergy Verified 03/16/24 16:51 Exam Data for Last 24 hours Vital signs and Labs for Last 24 Hours: Temp Pulse Resp BP Pulse Ox O2 Del Method 99.8 F H 67 12 213/90 H 98 Room Air 03/16/24 11:29 03/16/24 14:30 03/16/24 14:00 03/16/24 14:30 03/16/24 14:30 03/16/24 14:30 Laboratory Results - last 24 hr 03/16/24 11:31: WBC 7.3, RBC 3.98 L, Hgb 11.1 L, Hct 34.7 L, MCV 87.2, MCH 27.9, MCHC 32.0, RDW 13.5, Plt Count 153, MPV 10.5 H, Neut % (Auto) 76.8, Lymph % (Auto) 11.5, [place] % (Auto) 9.7 H, Eos % (Auto) 0.5, Baso % (Auto) 1.0, Neut # (Auto) 5.6, Lymph # (Auto) 0.8, [place] # (Auto) 0.7, Eos # (Auto) 0.0, Baso # (Auto) 0.1, Sodium 135 L, Potassium 3.0 L, Chloride 91 L, Carbon Dioxide 36 H, Anion Gap 11.0, BUN 12, Creatinine 1.90 H, Estimated Creat Clear 41, Estimated GFR 35 L, Est GFR ( Amer) 42 L, Glucose 207 H, Calcium 7.4 L, Magnesium 0.9 L, Total Bilirubin 0.5, AST 21, ALT 9 L, Alkaline Phosphatase 109, Total Protein 7.4, Albumin 3.5, Globulin 3.9 H, Albumin/Globulin Ratio 0.9 L, Procalcitonin 0.209, TSH 1.84, Free T4 Index 2.1 L, Thyroxine (T4) 5.7, T3 Uptake 36 03/16/24 12:20: SARS-CoV-2 (PCR) Not detected, Influenza A Untype (PCR) Not detected, Influenza Type B (PCR) Not detected 03/16/24 13:15: Urine Color Yellow, Urine Appearance Cloudy, Urine pH 6.0, Ur Specific [place] 1.020, Urine Protein 3+ A, Urine Glucose (UA) Negative, Urine Ketones Negative, Urine Blood 2+ A, Urine Nitrate Negative, Urine Bilirubin Negative, Urine Urobilinogen 0.2, Ur Leukocyte Esterase 2+ A, Urine RBC Occasional, Urine WBC 20-50, Ur Squamous Epith Cells None, Urine Bacteria 2+ I & O for Last 24 hours: Intake & Output 03/13/24 03/14/24 03/15/24 03/16/24 23:59 23:59 23:59 23:59 Weight 89.358 kg Constitutional Constitutional: mild distress, average body habitus, chronically ill appearing and cooperative *Routine HEENT Exam Head: Present normocephalic Eye: Present EOMI and PERRL ENT: Present mucous membranes moist *Routine Neck Exam Neck: Present supple; Absent lymphadenopathy *Routine Respiratory Exam Respiratory: Present CTA bilaterally; Absent rhonchi, wheezes or crackles *Routine Cardiovascular Exam Cardiovascular: Present RRR *Routine Abdominal Exam Abdominal: Present soft, normoactive bowel sounds and tenderness (Suprapubic) *Routine Rectal Exam Rectal:: deferred *Routine Genitalia Exam Genitalia:: deferred Comment:: Allen in place, light pink urine *Routine Extremities Exam Extremities: Absent cyanosis or clubbing Comments: Bilateral thenar wasting Routine Back/Spine/Pelvis Exam Back/Spine: Present CVA tenderness *Routine Skin Exam Skin: Present intact and warm; Absent rash *Routine Neurological Exam Neurological: Present alert, oriented X3, moving all extremities and tremors; Absent altered mental status Comments: Legally blind, unable to see provider Routine Psychiatric Exam Psychiatric: Present normal affect Additional Findings:: Tomas Crocker is a 78-year-old male with a medical history significant for Parkinson's dementia, hypertension, hyperlipidemia, insulin-dependent diabetes, hypothyroidism, anxiety/depression who presented via EMS after noticed increased weakness. Per patient, this has been ongoing for a few days with no significant change in p.o. intake. Denies chest pain, shortness of breath, abdominal pain, dysuria, constipation/diarrhea. No recent changes in medications. Workup in the ED significant for potassium 2.9, magnesium 0.7, and UA positive for protein, blood, leukocyte esterase, WBC. He was started on IV potassium 10 mill equivalents drip, and given mag sulfate 2 g. Case was discussed with the ED provider and decision was made to admit patient for severe electrolyte abnormalities and generalized weakness. #Hypokalemia #Hypomagnesemia ? Initial potassium 2.9, magnesium 0.7. ? Patient states he has been eating well, denies nausea/vomiting, diarrhea. ? Given IV potassium 10 mEq drip in the ED. Follow-up potassium 3.1 ? Given IV magnesium 2 g in the ED. Follow-up magnesium 1.3. ? Ordered another IV magnesium 2 g. ? Resumed home potassium 40 mill equivalents twice daily. ? Resumed home magnesium oxide 400 mg. ? Follow-up morning BMP, magnesium. Electrolyte replacement protocol. ? Follow-up morning phosphorus. #Elevated BNP #Lower extremity pitting edema #? Acute on chronic heart failure, unknown type ? No cardiac history, including heart failure. ? Patient states lower extremity edema has been going on for several weeks to months. Initial BNP 1630, though this can be age-related. ? Follow-up troponin. ? Will give IV Lasix diuresis challenge. Follow-up swelling tomorrow. ? Follow-up ECHO. #KJ on CKD stage IV ? Initial creatinine 2.2, baseline 1.7. ? Likely from prerenal third spacing, will diurese. See above. ? Monitor renal function with BMP daily. ? Follow-up CK. #Parkinson's disease ? Continue home carbidopa levodopa. #Insulin-dependent diabetes, ? LDSSI, ACHS glucose checks. ? Started Lantus 10 units nightly, home regimen glargine 35 units. Adjust based on SSI needs #Hypothyroidism ? Continue home levothyroxine 25 mcg. #Hypertension ? Hold home losartan 100 mg given KJ. ? Hold home carvedilol given asymptomatic bradycardia. ? Currently stable #GERD ? Protonix. CODE STATUS: Full code DVT prophylaxis: Heparin given KJ Diet: Cardiac Assessment and Plan *Assessment and plan (1) Pyelonephritis: Status: Acute Category: Medical Code(s): N12 - Tubulo-interstitial nephritis, not specified as acute or chronic (2) Bladder outlet obstruction: Status: Acute Category: Medical Code(s): N32.0 - Bladder-neck obstruction (3) Hypokalemia: Status: Acute Category: Medical Code(s): E87.6 - Hypokalemia (4) Hypocalcemia: Status: Acute Category: Medical Code(s): E83.51 - Hypocalcemia (5) Hypomagnesemia: Status: Acute Category: Medical Code(s): E83.42 - Hypomagnesemia (6) HTN (hypertension): Status: Acute Qualifiers: Hypertension type: unspecified Qualified Code(s): I10 - Essential (primary) hypertension Category: Medical Code(s): I10 - Essential (primary) hypertension (7) Diabetes mellitus: Status: Chronic Qualifiers: Diabetes mellitus complication status: with other specified complication Diabetes mellitus custodial insulin use: with custodial use Diabetes mellitus type: type 2 Qualified Code(s): E11.69 - Type 2 diabetes mellitus with other specified complication; Z79.4 - intermodal customer service (current) use of insulin Category: Medical Code(s): E11.9 - Type 2 diabetes mellitus without complications (8) HLD (hyperlipidemia): Status: Acute Qualifiers: Hyperlipidemia type: unspecified Qualified Code(s): E78.5 - Hyperlipidemia, unspecified Category: Medical Code(s): E78.5 - Hyperlipidemia, unspecified (9) Parkinson disease: Status: Chronic Qualifiers: Dyskinesia presence: with dyskinesia Fluctuating manifestations: without fluctuating manifestations Qualified Code(s): G20.B1 - Parkinson's disease with dyskinesia, without mention of fluctuations Category: Medical Code(s): G20.A1 - Parkinson's disease without dyskinesia, without mention of fluctuations Plan 78-year-old male with history of Parkinson's who presented to the ER with nausea, vomiting, weakness. Workup in the ER concerning for pyelonephritis. Catheter placed. Medicine consulted. Discussed case with ER physician, request admission for IV antibiotics and further management of pyelonephritis. I agreed to admit for further care. Received ceftriaxone in the ER, given patient's previous antibiotic resistance after reviewing his urinalysis results, will initiate meropenem 1 g twice daily. Necessitating inpatient management. Problems addressed as follows: UTI Hx of Multidrug resistant bacterial infection (achromobacter, E. coli) -Urine grossly abnormal with leuk esterase and nitrate. Based on previous resistant cultures, will initiate meropenem 1 g every 12 hours. -White count 7.3, hemoglobin 11.1. Urine and blood cultures pending -Repeat CBC, CMP, magnesium ordered for the morning -Procalcitonin 0.209 -Per my review of CT of abdomen, has hydronephrosis with thickening of bladder wall. Cyst on left kidney. Findings consistent with stranding around kidneys concerning for pyelonephritis. Parkinson's: Complicates all aspects of his care. Continue home carbidopa/levodopa 1 tab 4 times a day PT/OT evaluated, would benefit from placement for therapy Continue allopurinol 300 mg daily for gout Continue Lipitor 40 mg nightly for hyperlipidemia Continue gabapentin 400 mg twice daily as needed for neuropathy Type 2 diabetes: Continue Lantus at decreased dose of 35 units every morning. Sliding scale insulin as needed ACHS. Fingerstick glucose ACHS. -A1c pending Significant electrolyte disturbances with potassium 3.0, magnesium 0.9. Kidney function at baseline of BUN 12, creatinine 1.9. Hypothyroid: TSH normal however free T4 low at 2. Initiate levothyroxine 25 mcg daily Continue losartan 100 mg for hypertension Continue Paxil 40 mg daily, Seroquel 100 mg nightly, trazodone 50 mg nightly for sleep and mood Continue tamsulosin 0.4 g nightly for BPH Continue carvedilol 12.5 mg twice daily for hypertension Full code Holding anticoagulation in the setting of hematuria Diabetic diet
--- NOTE | 2024-03-16 15:00 | PC.NURSE ---
Report called to GLENYS Mccormack.
[2024-03-16 15:31] LABS: HIV Combo NEGATIVE (Negative)
[2024-03-16 15:39] LABS: Hepatitis C Ab Qual. W/ RFX NEGATIVE (Negative)
[2024-03-16] MEDS: CEFTRIAXONE 1 GM 1 GM in 0.9 % SODIUM CHLORIDE 50 ML IV (16:18)
[2024-03-16] MEDS: LACTATED RINGERS 1000ML 1,000 ML 100 ML IV (16:21)
[2024-03-16] MEDS: MEROPENEM 1 GM in 0.9 % SODIUM CHLORIDE 100 ML IV (19:17)
[2024-03-16 20:15] LABS: POC Glucose,Bedside 201 (70-110)
[2024-03-16] MEDS: PANTOPRAZOLE 40MG TABLET 40 MG PO (20:46)
[2024-03-16] MEDS: CARVEDILOL 25MG TABLET 12.5 MG PO (20:46)
[2024-03-16] MEDS: QUETIAPINE 100MG TABLET 100 MG PO (20:47)
[2024-03-16] MEDS: CARBIDOPA/LEVODOPA 25/100MG TABLET 1 EACH PO (20:47)
[2024-03-16] MEDS: TRAZODONE 50MG TABLET 50 MG PO (20:47)
[2024-03-16] MEDS: GABAPENTIN 400MG CAPSULE 800 MG PO (20:48)
[2024-03-16] MEDS: HYDROCODONE/APAP 5/325 MG TABLET 1 TAB PO (20:52)
[2024-03-17] VITALS (7 sets, daily range): BP systolic 101–184; BP diastolic 66–86; PULSE 47–64; RESP 14–18; TEMP 36.5–37.2; O2SAT 94–98; BMI 25.7
--- NOTE | 2024-03-17 03:43 | PC.NURSE ---
patient is alert and oriented X4. patient has rested well this shift. solano is in place, draining pink urine. patient c/o pain X1 and was medicated per mar with favorable outcome, patient is bedbound and has been turned Q2h
[2024-03-17 04:52] LABS: Basophils % 0.6 % (0.1-2.0); Eosinophils # 0.1 K/mm3 (0.0-0.4); Eosinophils % 0.8 % (0.1-12.0); Hematocrit 28.8 % (42.0-52.0); Lymphocytes # 1.3 K/mm3 (0.7-4.5); Lymphocytes % 21.7 % (10-50); Mean Corpuscular HGB Conc 31.9 g/dL (31.8-35.4); Mean Corpuscular Volume 87.5 fl (80-94); Monocytes # 0.8 K/mm3 (0.1-1.0); Monocytes % 13.1 % (1.7-9.3); Neutrophils # 3.9 K/mm3 (1.8-7.8); Neutrophils % 63.3 % (37.0-80.0); Platelet Count 134 K/mm3 (142-424); Red Blood Count 3.29 M/mm3 (4.60-6.20); Red Cell Distribution Width 13.6 % (11.5-17.5); White Blood Count 6.2 K/mm3 (4.8-10.8)
[2024-03-17 04:57] LABS: Hemoglobin 9.2 g/dL (14.1-18.0)
[2024-03-17 04:59] LABS: Albumin Level 2.7 g/dl (3.5-5.0); Chloride 96 mmol/L (98-107); Sodium 136 mmol/L (136-145)
[2024-03-17 05:00] LABS: Potassium 3.2 mmoL/L (3.5-5.1)
[2024-03-17 05:02] LABS: Alanine Aminotransferase 8 U/L (12-78); Albumin/Globulin Ratio 0.9 (1.1-1.8); Alkaline Phosphatase 93 U/L (38-126); Anion Gap 6.2 mEq/L (5-15); Aspartate Amino Transferase 17 U/L (17-59); Bilirubin,Total 0.4 mg/dl (0.2-1.3); Blood Urea Nitrogen 13 mg/dl (9-20); Carbon Dioxide 37 mmol/L (22.0-30.0); Creatinine Clearance Estimated 42 mL/min (50-200); Estimated Glomerular Filt Rate 37 ml/min (>60); GFR (African American) 44 ML/MIN (>60); Globulin 3.1 g/dL (1.3-3.2); Total Protein,Serum 5.8 g/dl (6.3-8.2)
[2024-03-17 05:03] LABS: Calcium 7.3 mg/dl (8.4-10.2); Glucose 179 mg/dl (74-100); Magnesium 1.2 mg/dl (1.6-2.3)
[2024-03-17 05:10] LABS: Hemoglobin A1C 7.1 % (4.0-6.0)
[2024-03-17] MEDS: MEROPENEM 1 GM in 0.9 % SODIUM CHLORIDE 100 ML IV ×2 (06:03→18:06)
[2024-03-17] MEDS: LEVOTHYROXINE 25MCG (0.025MG) TAB 25 MCG PO (06:03)
[2024-03-17 06:25] LABS: POC Glucose,Bedside 169 (70-110)
[2024-03-17] MEDS: PANTOPRAZOLE 40MG TABLET 40 MG PO ×2 (08:36→20:18)
[2024-03-17] MEDS: CARVEDILOL 12.5MG TABLET 12.5 MG PO (08:36)
[2024-03-17] MEDS: CARBIDOPA/LEVODOPA 25/100MG TABLET 1 EACH PO ×4 (08:36→20:17)
[2024-03-17] MEDS: IRBESARTAN 150MG TAB 150 MG PO (08:36)
[2024-03-17] MEDS: PARoxetine 20MG TABLET 40 MG PO (08:36)
[2024-03-17] MEDS: INSULIN GLARGINE 100 UNITS/ML 3ML FLEXPEN 35 UNIT SUBCUT (08:37)
--- NOTE | 2024-03-17 09:12 | EXP.ACUTE.PN ---
Subjective *Date: 03/17/24 *Time: 20:46 Interval history: Patient denies any chest or shortness of breath this morning. Stable on room air. Tolerating p.o. intake. Afebrile. Urine clearing. Has a lot of sediment. Medical Exam Vital signs and Labs for Last 24 Hours: Vital Signs Temp Pulse Pulse Resp BP BP BP 03/17/24 08:25 03/17/24 08:00 98.2 F 53 L 18 180/82 H 03/17/24 06:31 03/17/24 05:00 03/17/24 04:00 98.3 F 64 16 173/77 H 03/17/24 03:00 03/17/24 01:00 03/17/24 00:00 98.9 F 52 L 16 101/83 L 03/16/24 23:00 03/16/24 21:00 03/16/24 20:00 98.4 F 70 16 191/76 H 03/16/24 20:00 03/16/24 17:00 03/16/24 16:00 97.9 F 70 15 186/73 H 03/16/24 16:00 69 03/16/24 15:20 69 03/16/24 15:02 99.5 F 78 16 210/83 H 03/16/24 14:30 67 213/90 H 03/16/24 14:00 68 12 209/1 H 03/16/24 13:30 63 12 184/73 H 03/16/24 13:08 62 195/79 H 03/16/24 12:30 60 197/87 H 03/16/24 11:29 99.8 F H 68 16 168/77 H Pulse Ox O2 Del Method 03/17/24 08:25 Room Air 03/17/24 08:00 97 Room Air 03/17/24 06:31 Room Air 03/17/24 05:00 Room Air 03/17/24 04:00 94 L Room Air 03/17/24 03:00 Room Air 03/17/24 01:00 Room Air 03/17/24 00:00 95 Room Air 03/16/24 23:00 Room Air 03/16/24 21:00 Room Air 03/16/24 20:00 97 Room Air 03/16/24 20:00 Room Air 03/16/24 17:00 Room Air 03/16/24 16:00 98 Room Air 03/16/24 16:00 03/16/24 15:20 96 Room Air 03/16/24 15:02 Room Air 03/16/24 14:30 98 Room Air 03/16/24 14:00 96 Room Air 03/16/24 13:30 99 Room Air 03/16/24 13:08 96 Room Air 03/16/24 12:30 97 Room Air 03/16/24 11:29 98 Room Air Intake and Output 03/16/24 03/17/24 03/17/24 23:59 07:59 15:59 Intake Total 299 / 639 340 / 820 480 / 820 Output Total 1000 / 2400 600 / 600 Balance -701 / -1761 -260 / 220 480 / 220 Intake: Intake, Oral Amount 0 / 240 240 / 720 480 / 720 Intake, Total IV Amount 299 / 399 100 / 100 Ceftriaxone 1 gm 1 gm In 0.9 % 50 / 50 Sodium Chloride 50 ml @ 100 mls /hr IV Q24H [facility] Rx#:[id number] Lactated Ringers 1000ML 1,000 95 / 95 ml @ 100 mls/hr IV .Q10H [facility] Rx #:[id number] Lactated Ringers 1000ML 2,680 154 / 154 ml @ 1340 mls/hr IV .Q2H [facility] Rx #:[id number] Meropenem 1 gm In 0.9 % Sodium 100 / 100 Chloride 100 ml @ 100 mls/hr IV Q12H [facility] Rx#:[id number] Output: Output, Urine Amount 1000 / 2400 600 / 600 Other: Weight 85.417 kg 86.319 kg Patient Weight 03/17/24 23:59 Weight 86.319 kg Laboratory Results - last 24 hr 03/16/24 11:31: WBC 7.3, RBC 3.98 L, Hgb 11.1 L, Hct 34.7 L, MCV 87.2, MCH 27.9, MCHC 32.0, RDW 13.5, Plt Count 153, MPV 10.5 H, Neut % (Auto) 76.8, Lymph % (Auto) 11.5, [place] % (Auto) 9.7 H, Eos % (Auto) 0.5, Baso % (Auto) 1.0, Neut # (Auto) 5.6, Lymph # (Auto) 0.8, [place] # (Auto) 0.7, Eos # (Auto) 0.0, Baso # (Auto) 0.1, Sodium 135 L, Potassium 3.0 L, Chloride 91 L, Carbon Dioxide 36 H, Anion Gap 11.0, BUN 12, Creatinine 1.90 H, Estimated Creat Clear 41, Estimated GFR 35 L, Est GFR ( Amer) 42 L, Glucose 207 H, Calcium 7.4 L, Magnesium 0.9 L, Total Bilirubin 0.5, AST 21, ALT 9 L, Alkaline Phosphatase 109, Total Protein 7.4, Albumin 3.5, Globulin 3.9 H, Albumin/Globulin Ratio 0.9 L, Procalcitonin 0.209, TSH 1.84, Free T4 Index 2.1 L, Thyroxine (T4) 5.7, T3 Uptake 36, HCV Ab CHIQUIS w/Rflx PCR Qn Negative, HIV Ag/Ab Combo Qual Negative 03/16/24 12:20: SARS-CoV-2 (PCR) Not detected, Influenza A Untype (PCR) Not detected, Influenza Type B (PCR) Not detected 03/16/24 13:15: Urine Color Yellow, Urine Appearance Cloudy, Urine pH 6.0, Ur Specific [place] 1.020, Urine Protein 3+ A, Urine Glucose (UA) Negative, Urine Ketones Negative, Urine Blood 2+ A, Urine Nitrate Negative, Urine Bilirubin Negative, Urine Urobilinogen 0.2, Ur Leukocyte Esterase 2+ A, Urine RBC Occasional, Urine WBC 20-50, Ur Squamous Epith Cells None, Urine Bacteria 2+ 03/16/24 20:08: POC Glucose 201 H 03/17/24 04:29: WBC 6.2, RBC 3.29 L, Hgb 9.2 L D, Hct 28.8 L, MCV 87.5, MCH 28.0, MCHC 31.9, RDW 13.6, Plt Count 134 L, MPV 10.0, Neut % (Auto) 63.3, Lymph % (Auto) 21.7, [place] % (Auto) 13.1 H, Eos % (Auto) 0.8, Baso % (Auto) 0.6, Neut # (Auto) 3.9, Lymph # (Auto) 1.3, [place] # (Auto) 0.8, Eos # (Auto) 0.1, Baso # (Auto) 0.0, Sodium 136, Potassium 3.2 L, Chloride 96 L, Carbon Dioxide 37 H, Anion Gap 6.2, BUN 13, Creatinine 1.80 H, Estimated Creat Clear 42, Estimated GFR 37 L, Est GFR ( Amer) 44 L, Glucose 179 H, Hemoglobin A1c 7.1 H, Calcium 7.3 L, Magnesium 1.2 L D, Total Bilirubin 0.4, AST 17, ALT 8 L, Alkaline Phosphatase 93, Total Protein 5.8 L, Albumin 2.7 L D, Globulin 3.1, Albumin/Globulin Ratio 0.9 L 03/17/24 06:18: POC Glucose 169 H I & O for Labs for Last 24 Hours: Intake & Output 03/14/24 03/15/24 03/16/24 03/17/24 23:59 23:59 23:59 23:59 Intake Total 299 / 639 820 / 820 Output Total 2400 / 2400 600 / 600 Balance -2101 / -1761 220 / 220 Weight 85.417 kg 86.319 kg Microbiology Reports for the Last 24 Hours: Microbiology 03/16/24 13:15 Urine,Clean Catch Urine Culture - Preliminary Constitutional: Present no acute distress, average body habitus and chronically ill appearing Head: Present atraumatic and normocephalic ENT: Present normal exam Neck: Present normal inspection Respiratory: Present normal respiratory effort; Absent rhonchi, wheezes or crackles Cardiac: Present Reg Rate and Rhythm GI: Present soft and normal bowel sounds; Absent distention or tenderness Extremities: Present normal inspection and full ROM; Absent edema Skin: Present intact; Absent erythema Neuro: Present Grossly Intact, alert, awake and moves all extremities Comment:: Oriented to self and place. Visual impairment; tremor at baseline Assessment and Plan *Assessment and plan (1) Pyelonephritis: Status: Acute Category: Medical Code(s): N12 - Tubulo-interstitial nephritis, not specified as acute or chronic (2) Bladder outlet obstruction: Status: Acute Category: Medical Code(s): N32.0 - Bladder-neck obstruction (3) Hypokalemia: Status: Acute Category: Medical Code(s): E87.6 - Hypokalemia (4) Hypocalcemia: Status: Acute Category: Medical Code(s): E83.51 - Hypocalcemia (5) Hypomagnesemia: Status: Acute Category: Medical Code(s): E83.42 - Hypomagnesemia (6) HTN (hypertension): Status: Acute Qualifiers: Hypertension type: unspecified Qualified Code(s): I10 - Essential (primary) hypertension Category: Medical Code(s): I10 - Essential (primary) hypertension (7) Diabetes mellitus: Status: Chronic Qualifiers: Diabetes mellitus type: type 2 Diabetes mellitus ad terminal makeup operator insulin use: with mcc use Diabetes mellitus complication status: with other specified complication Qualified Code(s): E11.69 - Type 2 diabetes mellitus with other specified complication; Z79.4 - custodial (current) use of insulin Category: Medical Code(s): E11.9 - Type 2 diabetes mellitus without complications (8) HLD (hyperlipidemia): Status: Acute Qualifiers: Hyperlipidemia type: unspecified Qualified Code(s): E78.5 - Hyperlipidemia, unspecified Category: Medical Code(s): E78.5 - Hyperlipidemia, unspecified (9) Parkinson disease: Status: Chronic Qualifiers: Dyskinesia presence: with dyskinesia Fluctuating manifestations: without fluctuating manifestations Qualified Code(s): G20.B1 - Parkinson's disease with dyskinesia, without mention of fluctuations Category: Medical Code(s): G20.A1 - Parkinson's disease without dyskinesia, without mention of fluctuations Plan 78-year-old male with history of Parkinson's who presented to the ER with nausea, vomiting, weakness. Workup in the ER concerning for pyelonephritis. Catheter placed. Medicine consulted. Discussed case with ER physician, request admission for IV antibiotics and further management of pyelonephritis. I agreed to admit for further care. Received ceftriaxone in the ER, given patient's previous antibiotic resistance after reviewing his urinalysis results, will initiate meropenem 1 g twice daily. Continuing to await cultures. Clinically improving. Therapy evaluated, recommend placement for patient is wanting to go home. Discussing with patient's daughter. Necessitating inpatient management. Problems addressed as follows: UTI Hx of Multidrug resistant bacterial infection (achromobacter, E. coli) -Urine grossly abnormal with leuk esterase and nitrate. Based on previous resistant cultures, will initiate meropenem 1 g every 12 hours. -White count remains normal at 6.2. Hemoglobin 9.2. Kidney function at baseline with BUN 13, creatinine 1.8. -Urine cultures pending -Repeat CBC, CMP, magnesium ordered for the morning Parkinson's: Complicates all aspects of his care. Continue home carbidopa/levodopa 1 tab 4 times a day PT/OT evaluated, would benefit from placement for therapy, case management assisting with discussion with patient and family about next site of care of home with home health versus rehab Continue allopurinol 300 mg daily for gout Continue Lipitor 40 mg nightly for hyperlipidemia Continue gabapentin 400 mg twice daily as needed for neuropathy Type 2 diabetes: Continue Lantus at decreased dose of 35 units every morning. Sliding scale insulin as needed ACHS. Fingerstick glucose ACHS. -A1c controlled at 7.1 Significant electrolyte disturbances with potassium 3.2, magnesium 1.2. Replacing IV magnesium today x 2 with 4 g total and p.o. potassium per electrolyte protocol Hypothyroid: TSH normal however free T4 low at 2. Initiate levothyroxine 25 mcg daily Continue losartan 100 mg for hypertension Continue Paxil 40 mg daily, Seroquel 100 mg nightly, trazodone 50 mg nightly for sleep and mood Continue tamsulosin 0.4 g nightly for BPH Continue carvedilol 12.5 mg twice daily for hypertension Full code Holding anticoagulation in the setting of hematuria Diabetic diet
[2024-03-17] MEDS: MAGNESIUM SULFATE IN WATER 2 GM/50 ML PIGGYBACK IV ×3 (09:15→16:13)
[2024-03-17] MEDS: POTASSIUM CHLORIDE 20MEQ TAB 40 MEQ PO ×2 (09:15→12:21)
--- NOTE | 2024-03-17 09:46 | PC.NURSE ---
Spoke with patient's daughter Rita regarding patient's home meds and possible disposition. Daughter states patient has not had home therapy in weeks and she would be interested in him going for inpatient rehab but she doesn't think he will agree to go
--- NOTE | 2024-03-17 09:56 | HMH.PHAINT1 ---
Pharmacy Intervention Comments: HOME MEDICATION LIST VERIFIED USING LIST FROM OUTPATIENT PHARMACY AND PT INTERVIEW
--- NOTE | 2024-03-17 10:31 | SW/DCPLANNER ---
Addendum entered by [facility] 03/19/24 07:50: This patient has been approved SNF level of care once medically stable for discharge. Addendum entered by [facility] 03/18/24 11:21: Elijah w/ [facility] will be at bedside to evaluate this patient today. Per MD patient could potentially be ready for discharge tomorrow. I will continue to follow up. Addendum entered by [facility] 03/18/24 08:47: Adry w/ [facility] stated that they have no beds available at this time. Addendum entered by [facility] 03/18/24 08:46: Patient is now agreeable to be faxed to [facility] and [facility] for SNF level of care. I will continue to follow up w/ patient, family, MD and facilities. Addendum entered by [facility] 03/17/24 15:20: Per Rita she spoke w/ patient this afternoon and he seems to be more of accepting for SNF level of care. Rita has requested that patient has the evening to consider placement and I will follow up w/ him tomorrow morning. Discharge date is unknown at this time. Original Note: I spoke w/ this patient regarding plans once medically stable for discharge. PT/OT evaluated patient and recommended SNF level of care OR home w/ home health and 28/08 care. Patient stated that he currently resides at home w/ his daughter and is established w/ [facility]. Patient is not interested in placement at this time and prefers to return home w/ his daughter. Patient would also prefer to resume home health services w/ [facility]. I did call and update patient's daughter (Rita) that he lives w/ at this time. Rita stated that she plans to come to [facility] this afternoon to speak w/ patient regarding placement. Rita stated that if patient still refuses therapy after she speaks w/ him then she is agreeable for patient to return home w/ home health services. I will continue to follow up w/ this patient and his daughter. Discharge date is unknown at this time. I will continue to follow up.
[2024-03-17] MEDS: humaLOG 100 UNITS/ML 10ML VIAL (SSI) SUBCUT ×3 (11:07→20:17)
[2024-03-17] MEDS: ENOXAPARIN 40MG/0.4ML SYRINGE 40 MG SUBCUT (11:08)
[2024-03-17 11:10] LABS: POC Glucose,Bedside 223 (70-110)
--- NOTE | 2024-03-17 11:21 | HMH.OTEV ---
OT Inpatient Evaluation Rehab OT IP Evaluation Start: 03/16/24 20:51 Freq: ONCE Status: Active Protocol: Document 03/17/24 10:59 [facility] (Rec: 03/17/24 11:21 [facility] [id number]) Rehab OT IP Assessment Subjective History Pt oriented x 2 on arrival. Pt agreeable to engage in therapy evaluation. Pt admitted on 03/16/24 due to pyelonephritis. History and physical: Mr. Crocker is a 78-year-old male with history significant for Parkinson's dementia, hypertension, hyperlipidemia, insulin-dependent diabetes, hypothyroidism, anxiety/ depression who presented via EMS due to onset of nausea and vomiting and weakness. Patient reports chills and subjective fever. Denies cough or chest pain. States has been having increased difficulty urinating. Patient denies much p.o. intake over the past 24 hours. Threw up his meds this morning. Complaining of some mild lower abdominal pain. Workup in the ER, white count is normal. Imaging of abdomen however shows thickened bladder wall and concern for pyelonephritis . Urine grossly abnormal. Has had previous UTIs with mixed resistance. Patient was started on broad-spectrum antibiotics for pyelonephritis . Catheter placed for obstructive process. Medicine consulted for admission and further management. On arrival to the floor, patient states he feels little bit better after placement of catheter. Has had 1500 cc of blood-tinged urine output. Remains afebrile and hemodynamically stable. Alert and oriented to self and place. Subjective I usually don't walk much. Prior to being in the hospital , pt was living with his daughter. Pt reports normally he is able to feed and dress himself, but does require some assistance with bathing. Pt is dependent upon daughter for completion of all IADLS. Pt is normally only able to transfer short distances using rolling walker. He does have a wheelchair at home as well. Objective Patient Orientation Person,Place,Birthday Right Upper Extremity Gross ROM WFL Left Upper Extremity Gross ROM WFL Bed Mobility bed mobility-scooting,bed mobility - supine/sit Assist Level Contact Guard/Hand Hold Transfer Training Sit/Stand Transfer Assist Level Moderate x 1 (50% assist) Rehab OT IP prob,goals,plan Problems Date of Evaluation: 03/17/24 OT IP Problems Bed Mobility,Transfers,Balance ,Self care,Safety Rehab Potential Rehab Potential Good Equipment Needs Assistive Devices Rolling / Wheeled Walker Plan OT intervention Plan Bed Mobility,Transfers,Balance ,Self care,Safety,Therapeutic Exercise OT Plan Frequency Daily Duration LOS Discharge Goals Bed Mobility Ability Standby Assistance Sit to Stand Chair Transfer Ability Minimal x 1 (25% assist) Chair Transfer Ability Minimal x 1 (25% assist) Chair Transfer Technique Sit to/from Ambulatory Chair Transfer Assistive Devices Rolling Walker Feeding Ability Assist with Tray Set Up Lower Body Dressing Ability Minimal Assistance Upper Body Dressing Ability Standby Assistance Bathing Ability Moderate Assistance Performing Toilet Hygiene Ability Minimal Assistance Overall Commode/Toilet Transfer Ability Minimal Assistance Commode/Toilet Transfer Technique Sit to/from Ambulatory Commode/Toilet Transfer Assistive Grab Bars Devices Discharge Plan OT Discharge Plan Pt will continue to be seen for OT services while at [facility]. Pt would benefit most from short term rehab at [facility]. However, pt could also return home with daughter if she is able to provide 24/7 assistance. If he does return home, therapist recommends OT evaluation for continued skilled therapy. Continued skilled therapy is important in order for patient improve strength, safety, endurance, ADL independence, and functional transfers to reach PLOF. Eval Complexity Eval Charge Codes 25402 - Moderate Complexity PHYSICIAN CERTIFICATION: I certify the specified therapy services for Tomas Crocker are required, authorized, and reviewed every 30 days.
[2024-03-17] MEDS: HYDROCODONE/APAP 5/325 MG TABLET 1 TAB PO ×2 (12:23→20:18)
--- NOTE | 2024-03-17 12:23 | HMH.PTEV ---
Physical Therapy Evaluation Rehab PT IP Evaluation Start: 03/16/24 20:52 Freq: ONCE Status: Active Protocol: Document 03/17/24 12:06 [facility] (Rec: 03/17/24 12:23 [facility] [id number]) Subjective/History History History Pt oriented x 2 on arrival. Pt agreeable to engage in therapy evaluation. Pt admitted on 03/16/24 due to pyelonephritis. History and physical: Mr. Crocker is a 78-year-old male with history significant for Parkinson's dementia, hypertension, hyperlipidemia, insulin-dependent diabetes, hypothyroidism, anxiety/ depression who presented via EMS due to onset of nausea and vomiting and weakness. Patient reports chills and subjective fever. Denies cough or chest pain. States has been having increased difficulty urinating. Patient denies much p.o. intake over the past 24 hours. Threw up his meds this morning. Complaining of some mild lower abdominal pain. Workup in the ER, white count is normal. Imaging of abdomen however shows thickened bladder wall and concern for pyelonephritis . Urine grossly abnormal. Has had previous UTIs with mixed resistance. Patient was started on broad-spectrum antibiotics for pyelonephritis . Catheter placed for obstructive process. Medicine consulted for admission and further management. On arrival to the floor, patient states he feels little bit better after placement of catheter. Has had 1500 cc of blood-tinged urine output. Remains afebrile and hemodynamically stable. Alert and oriented to self and place. Subjective Subjective Pt reports that he lives at home with his daughter. He reports that he does not walk much. Reports that his daughter pushes him around in a rollator for almost all mobility. Reports that is how he has been getting around for about a year. He reports that he needs assistance with all ADLs. New diagnosis of cancer in past 12 No months? Rehab PT IP Eval Objective Appearance Patient Behavior Appropriate,Patient Baseline Patient Orientation Person,Place,Time Difficulty following instructions none Speech Pattern Patient Baseline Ambulation Patient Able to Ambulate Yes Ambulation Observation IP General Gait Pattern Observation Antalgic Gait Ambulation Distance (feet) 2 Ambulation Ability Moderate x 1 (50% assist) Balance Ability to Arise Able, uses arms to help Sitting Balance Leans or slides in chair Standing Balance Unsteady Dynamic Sitting Balance Ability Poor Dynamic Standing Balance Ability Poor Transfers Bed Transfer Ability Minimal x 1 (25% assist) Chair Transfer Ability Contact Guard/Hand Hold Sit to Stand Bed Transfer Ability Minimal x 1 (25% assist) Sit to Stand Chair Transfer Ability Minimal x 1 (25% assist) Rehab PT IP prob,goals,plan Problems Date of Evaluation: 03/17/24 PT IP Problems Bed Mobility,Transfers,Gait, Balance,Self care,Safety Rehab Potential Rehab Potential Fair Equipment Needs Assistive Devices None / NA Plan PT Intervention Plan Bed Mobility,Transfers,Gait, Balance,Self care,Safety, Therapeutic Exercise PT Plan Frequency BID Duration LOS Discharge Goals Bed Transfer Ability Supervision/Stand by Sit to Stand Chair Transfer Ability Supervision/Stand by Ambulation Assistive Device Rolling Walker Ambulation Distance (feet) 5 Discharge Plan PT Discharge Plan PT is recommending discharge to home with 24 hour assistance. If pt's family is unable to provide assistance then pt would better benefit from placement. Pt would benefit from skilled PT while in the hospital to address his current impairments. Eval Complexity Eval Charge Codes 00521 - Moderate Complexity PHYSICIAN CERTIFICATION: I certify the specified therapy services for Tomas Crocker are required, authorized, and reviewed every 30 days.
--- NOTE | 2024-03-17 13:57 | PC.NURSE ---
TECH NOTE; NOTIFIED NURSE OF 0800 VITAL SIGNS AT 0750. NOTIFIED NURSE OF 1200 VITAL SIGNS AT 1215. Wili SAENZ, SRNA
--- NOTE | 2024-03-17 15:10 | PC.NURSE ---
Patient alert and oriented. Hypertensive. Other vital signs stable. On room air. Legally blind so patient assisted with feedings and pills. Allen output adequate. Electrolytes replaced per protocol. Turned prn. Discussed rehab placement with daughter with patient stating he will think about it.
[2024-03-17 16:14] LABS: POC Glucose,Bedside 218 (70-110)
--- NOTE | 2024-03-17 16:39 | PC.NURSE ---
TECH NOTE; NOTIFIED NURSE OF BLOOD PRESSURE FOR 1600 VITAL SIGNS Wili SAENZ, SRNA
--- NOTE | 2024-03-17 20:02 | EXP.EVENT.NO ---
Problem: Nursing called to let me know that the patient's heart rate was down into the mid 40s.. Evaluated chart came in today are actually on 2 9. Heart rate was in the 50s sometimes in the 60s will hold this 1 dose of carvedilol which is 12.5 until a.m.. Patient does not have recent EKG in chart we will go ahead and get a twelve-lead at this time also.
[2024-03-17 20:05] LABS: POC Glucose,Bedside 206 (70-110)
[2024-03-17] MEDS: GABAPENTIN 400MG CAPSULE 800 MG PO (20:17)
[2024-03-17] MEDS: TAMSULOSIN 0.4MG CAPSULE 0.4 MG PO (20:18)
[2024-03-17] MEDS: QUETIAPINE 100MG TABLET 100 MG PO (20:18)
[2024-03-17] MEDS: TRAZODONE 50MG TABLET 50 MG PO (20:18)
[2024-03-18] VITALS: BP 146/72; PULSE 53; RESP 16; TEMP 36.4; O2SAT 98
[2024-03-18 02:33] LABS: POC Glucose,Bedside 189 (70-110)
[2024-03-18 04:00] VITALS: BP 176/76; PULSE 51; RESP 16; TEMP 36.6; O2SAT 97; BMI 26.2
--- NOTE | 2024-03-18 04:57 | PC.NURSE ---
Pt has remained alert and oriented and has tolerated room air. Lung sounds clear and bowel sounds active. Allen has remained in place and is draining well. He did complain of leg pain once and was medicated per MAR. He has rested well this shift. No complaints at this time, call light within reach.
[2024-03-18] MEDS: LEVOTHYROXINE 25MCG (0.025MG) TAB 25 MCG PO (06:11)
[2024-03-18] MEDS: MEROPENEM 1 GM in 0.9 % SODIUM CHLORIDE 100 ML IV ×2 (06:12→17:59)
[2024-03-18 06:14] LABS: POC Glucose,Bedside 86 (70-110)
[2024-03-18 06:46] LABS: Basophils % 0.7 % (0.1-2.0); Eosinophils # 0.2 K/mm3 (0.0-0.4); Eosinophils % 3.8 % (0.1-12.0); Hematocrit 28.7 % (42.0-52.0); Hemoglobin 9.2 g/dL (14.1-18.0); Lymphocytes # 1.3 K/mm3 (0.7-4.5); Lymphocytes % 21.4 % (10-50); Mean Corpuscular HGB Conc 32.1 g/dL (31.8-35.4); Mean Corpuscular Volume 87.2 fl (80-94); Mean Platelet Volume 10.7 fl (7.4-10.4); Monocytes # 0.7 K/mm3 (0.1-1.0); Monocytes % 11.8 % (1.7-9.3); Neutrophils # 3.6 K/mm3 (1.8-7.8); Neutrophils % 61.8 % (37.0-80.0); Platelet Count 131 K/mm3 (142-424); Red Blood Count 3.29 M/mm3 (4.60-6.20); Red Cell Distribution Width 13.6 % (11.5-17.5); White Blood Count 5.8 K/mm3 (4.8-10.8)
[2024-03-18 07:06] LABS: Albumin Level 2.6 g/dl (3.5-5.0); Chloride 99 mmol/L (98-107); Potassium 3.6 mmoL/L (3.5-5.1); Sodium 135 mmol/L (136-145)
[2024-03-18 07:09] LABS: Alanine Aminotransferase 6 U/L (12-78); Albumin/Globulin Ratio 0.8 (1.1-1.8); Alkaline Phosphatase 92 U/L (38-126); Anion Gap 2.6 mEq/L (5-15); Aspartate Amino Transferase 18 U/L (17-59); Bilirubin,Total 0.3 mg/dl (0.2-1.3); Blood Urea Nitrogen 13 mg/dl (9-20); Calcium 7.3 mg/dl (8.4-10.2); Carbon Dioxide 37 mmol/L (22.0-30.0); Creatinine Clearance Estimated 45 mL/min (50-200); Estimated Glomerular Filt Rate 39 ml/min (>60); GFR (African American) 48 ML/MIN (>60); Globulin 3.2 g/dL (1.3-3.2); Glucose 84 mg/dl (74-100); Magnesium 2.2 mg/dl (1.6-2.3); Total Protein,Serum 5.8 g/dl (6.3-8.2)
[2024-03-18 08:00] VITALS: BP 178/82; PULSE 58; RESP 20; TEMP 36.5; O2SAT 99
[2024-03-18] MEDS: PARoxetine 20MG TABLET 40 MG PO (09:13)
[2024-03-18] MEDS: CARBIDOPA/LEVODOPA 25/100MG TABLET 1 EACH PO ×4 (09:13→20:27)
[2024-03-18] MEDS: IRBESARTAN 150MG TAB 150 MG PO (09:14)
[2024-03-18] MEDS: ENOXAPARIN 40MG/0.4ML SYRINGE 40 MG SUBCUT (09:14)
[2024-03-18] MEDS: PANTOPRAZOLE 40MG TABLET 40 MG PO ×2 (09:14→20:28)
[2024-03-18] MEDS: INSULIN GLARGINE 100 UNITS/ML 3ML FLEXPEN 35 UNIT SUBCUT (09:17)
[2024-03-18] MEDS: AMLODIPINE 5MG TABLET 5 MG PO (09:22)
[2024-03-18 09:28] LABS: POC Glucose,Bedside 179 (70-110)
[2024-03-18] MEDS: humaLOG 100 UNITS/ML 10ML VIAL (SSI) SUBCUT ×2 (11:30→20:27)
[2024-03-18 11:34] LABS: POC Glucose,Bedside 198 (70-110)
[2024-03-18 12:00] VITALS: BP 161/75; PULSE 62; RESP 18; TEMP 37; O2SAT 97
[2024-03-18] MEDS: HYDROCODONE/APAP 5/325 MG TABLET 1 TAB PO (13:01)
[2024-03-18 13:12] VITALS: BMI 26.2
--- NOTE | 2024-03-18 14:53 | P.PN_ITS ---
Subjective *Date: 03/18/24 *Time: 14:53 Interval history: Patient is feeling well today, no nausea/vomiting, abdominal pain. Patient prefers rehab over home health. Case management assisting with placement. Exam Data for Last 24 hours Vital signs and Labs for Last 24 Hours: Temp Pulse Resp BP Pulse Ox O2 Del Method 98.6 F 62 18 161/75 H 97 Room Air 03/18/24 12:00 03/18/24 12:00 03/18/24 12:00 03/18/24 12:00 03/18/24 12:00 03/18/24 13:00 Laboratory Results - last 24 hr 03/16/24 13:15: Urine Color Yellow, Urine Appearance Cloudy, Urine pH 6.0, Ur Specific [place] 1.020, Urine Protein 3+ A, Urine Glucose (UA) Negative, Urine Ketones Negative, Urine Blood 2+ A, Urine Nitrate Negative, Urine Bilirubin Negative, Urine Urobilinogen 0.2, Ur Leukocyte Esterase 2+ A, Urine RBC Occasional, Urine WBC 20-50, Ur Squamous Epith Cells None, Urine Bacteria 2+ 03/16/24 17:36: POC Glucose 189 H 03/17/24 16:07: POC Glucose 218 H 03/17/24 19:58: POC Glucose 206 H 03/18/24 06:07: POC Glucose 86 03/18/24 06:09: WBC 5.8, RBC 3.29 L, Hgb 9.2 L, Hct 28.7 L, MCV 87.2, MCH 28.0, MCHC 32.1, RDW 13.6, Plt Count 131 L, MPV 10.7 H, Neut % (Auto) 61.8, Lymph % (Auto) 21.4, [place] % (Auto) 11.8 H, Eos % (Auto) 3.8, Baso % (Auto) 0.7, Neut # (Auto) 3.6, Lymph # (Auto) 1.3, [place] # (Auto) 0.7, Eos # (Auto) 0.2, Baso # (Auto) 0.0, Sodium 135 L, Potassium 3.6, Chloride 99, Carbon Dioxide 37 H, Anion Gap 2.6 L, BUN 13, Creatinine 1.70 H, Estimated Creat Clear 45, Estimated GFR 39 L, Est GFR ( Amer) 48 L, Glucose 84, Calcium 7.3 L, Magnesium 2.2 D, Total Bilirubin 0.3, AST 18, ALT 6 L, Alkaline Phosphatase 92, Total Protein 5.8 L, Albumin 2.6 L, Globulin 3.2, Albumin/Globulin Ratio 0.8 L 03/18/24 09:17: POC Glucose 179 H 03/18/24 11:28: POC Glucose 198 H I & O for Last 24 hours: Intake & Output 03/15/24 03/16/24 03/17/24 03/18/24 23:59 23:59 23:59 23:59 Intake Total 299 / 639 1640 / 1740 940 / 940 Output Total 2400 / 2400 1100 / 1800 1700 / 1700 Balance -2101 / -1761 540 / -60 -760 / -760 Weight 85.417 kg 86.319 kg 87.99 kg Microbiology Reports for the Last 24 Hours: Microbiology 03/16/24 13:15 Urine,Clean Catch Urine Culture - Preliminary Gram Negative Rods Gram Negative Rods#2 03/16/24 14:28 Blood Blood Culture - Preliminary NO GROWTH AFTER 24 HOURS 03/16/24 14:58 Blood Blood Culture - Preliminary NO GROWTH AFTER 24 HOURS Constitutional Constitutional: no acute distress, average body habitus, chronically ill appearing and cooperative *Routine HEENT Exam Head: Present normocephalic and atraumatic Eye: Present EOMI and PERRL ENT: Present mucous membranes moist *Routine Neck Exam Neck: Present supple; Absent lymphadenopathy *Routine Respiratory Exam Respiratory: Present CTA bilaterally; Absent rhonchi, wheezes or crackles *Routine Cardiovascular Exam Cardiovascular: Present RRR *Routine Abdominal Exam Abdominal: Present soft, normoactive bowel sounds and tenderness (Suprapubic) *Routine Rectal Exam Patient deferred: visual exam *Routine Exam Patient deferred: penile exam *Routine Extremities Exam Extremities: Absent cyanosis, clubbing or edema *Routine Skin Exam Skin: Present warm; Absent rash *Routine Neurological Exam Neurological: Present alert, oriented X3 and moving all extremities; Absent altered mental status Comments: Rigidity in limbs. Shuffling gait when ambulates. Assessment and Plan *Assessment and plan (1) Pyelonephritis: Status: Acute Category: Medical Code(s): N12 - Tubulo-interstitial nephritis, not specified as acute or chronic (2) Bladder outlet obstruction: Status: Acute Category: Medical Code(s): N32.0 - Bladder-neck obstruction (3) Hypokalemia: Status: Acute Category: Medical Code(s): E87.6 - Hypokalemia (4) Hypocalcemia: Status: Acute Category: Medical Code(s): E83.51 - Hypocalcemia (5) Hypomagnesemia: Status: Acute Category: Medical Code(s): E83.42 - Hypomagnesemia (6) HTN (hypertension): Status: Acute Qualifiers: Hypertension type: unspecified Qualified Code(s): I10 - Essential (primary) hypertension Category: Medical Code(s): I10 - Essential (primary) hypertension (7) Diabetes mellitus: Status: Chronic Qualifiers: Diabetes mellitus type: type 2 Diabetes mellitus jail insulin use: with assistant terminal manager use Diabetes mellitus complication status: with other specified complication Qualified Code(s): E11.69 - Type 2 diabetes mellitus with other specified complication; Z79.4 - assistant terminal manager (current) use of insulin Category: Medical Code(s): E11.9 - Type 2 diabetes mellitus without complications (8) HLD (hyperlipidemia): Status: Acute Qualifiers: Hyperlipidemia type: unspecified Qualified Code(s): E78.5 - Hyperlipidemia, unspecified Category: Medical Code(s): E78.5 - Hyperlipidemia, unspecified (9) Parkinson disease: Status: Chronic Qualifiers: Dyskinesia presence: with dyskinesia Fluctuating manifestations: without fluctuating manifestations Qualified Code(s): G20.B1 - Parkinson's disease with dyskinesia, without mention of fluctuations Category: Medical Code(s): G20.A1 - Parkinson's disease without dyskinesia, without mention of fluctuations Plan Tomas Crocker is a 78-year-old male with history of Parkinson's who presented to the ER with nausea, vomiting, weakness. Workup in the ER concerning for pyelonephritis. Discussed case with ER physician, request admission for IV antibiotics and further management of pyelonephritis. #Pyelonephritis, left #Hx of Multidrug resistant bacterial infection (achromobacter, E. coli) #Urinary retention ? Urine grossly abnormal, urine culture growing gram-negative rods x 2. ? Continue IV meropenem day 2 based on previous urine cultures. ? No signs of sepsis, continue to monitor. Renal function stable creatinine 1.7 (at baseline), potassium 3.6. ? Allen catheter removed today, follow-up urine output. - Repeat CBC, CMP, magnesium ordered for the morning #Parkinson's: Complicates all aspects of his care. ? Continue home carbidopa/levodopa 1 tab 4 times a day ? PT/OT evaluated, would benefit from placement for therapy, case management assisting with placement. Continue allopurinol 300 mg daily for gout Continue Lipitor 40 mg nightly for hyperlipidemia Continue gabapentin 400 mg twice daily as needed for neuropathy Type 2 diabetes: Continue Lantus at decreased dose of 35 units every morning. Sliding scale insulin as needed ACHS. Fingerstick glucose ACHS. - A1c controlled at 7.1 Hypothyroid: TSH normal however free T4 low at 2. Continue levothyroxine 25 mcg daily Continue losartan 100 mg for hypertension Continue Paxil 40 mg daily, Seroquel 100 mg nightly, trazodone 50 mg nightly for sleep and mood Continue tamsulosin 0.4 g nightly for BPH Continue carvedilol 12.5 mg twice daily for hypertension Full code Lovenox 40 mg Diabetic diet
[2024-03-18 16:00] VITALS: BP 159/76; PULSE 60; RESP 18; TEMP 36.7; O2SAT 97
[2024-03-18 17:03] LABS: POC Glucose,Bedside 134 (70-110)
[2024-03-18 20:00] VITALS: BP 182/86; PULSE 62; RESP 16; TEMP 36.7; O2SAT 97
[2024-03-18 20:14] LABS: POC Glucose,Bedside 184 (70-110)
[2024-03-18] MEDS: ATORVASTATIN 40MG TABLET 40 MG PO (20:27)
[2024-03-18] MEDS: GABAPENTIN 400MG CAPSULE 800 MG PO (20:27)
[2024-03-18] MEDS: TAMSULOSIN 0.4MG CAPSULE 0.4 MG PO (20:28)
[2024-03-18] MEDS: TRAZODONE 50MG TABLET 50 MG PO (20:28)
[2024-03-18] MEDS: QUETIAPINE 100MG TABLET 100 MG PO (20:29)
[2024-03-19] VITALS: BP 130/64; PULSE 61; RESP 16; TEMP 36.7; O2SAT 96
[2024-03-19 04:00] VITALS: BP 179/92; PULSE 63; RESP 16; TEMP 36.7; O2SAT 97; BMI 25.4
--- NOTE | 2024-03-19 05:01 | PC.NURSE ---
Pt is A/O X 4. He has not been out of bed this shift . He did report discomfort to BLE but resolved after Gabapentin. Pt voiding using urinal and/or brief, since f/c removed. VS have been WNL and 02 sats above 90 on RA. FSBS at 9 pm, 184. Insulin given per SS. Pt has seemed to rest well throughout shift.
[2024-03-19] MEDS: MEROPENEM 1 GM in 0.9 % SODIUM CHLORIDE 100 ML IV (06:01)
[2024-03-19] MEDS: LEVOTHYROXINE 25MCG (0.025MG) TAB 25 MCG PO (06:02)
[2024-03-19 06:23] LABS: POC Glucose,Bedside 111 (70-110)
[2024-03-19 06:54] LABS: Albumin Level 2.8 g/dl (3.5-5.0); Chloride 97 mmol/L (98-107); Sodium 138 mmol/L (136-145)
[2024-03-19 06:55] LABS: Potassium 3.4 mmoL/L (3.5-5.1)
[2024-03-19 06:57] LABS: Alanine Aminotransferase 8 U/L (12-78); Anion Gap 4.4 mEq/L (5-15); Aspartate Amino Transferase 24 U/L (17-59); Blood Urea Nitrogen 12 mg/dl (9-20); Carbon Dioxide 40 mmol/L (22.0-30.0); Creatinine Clearance Estimated 47 mL/min (50-200); Estimated Glomerular Filt Rate 42 ml/min (>60); GFR (African American) 51 ML/MIN (>60)
[2024-03-19 06:58] LABS: Albumin/Globulin Ratio 0.8 (1.1-1.8); Alkaline Phosphatase 106 U/L (38-126); Bilirubin,Total 0.3 mg/dl (0.2-1.3); Calcium 7.5 mg/dl (8.4-10.2); Globulin 3.3 g/dL (1.3-3.2); Glucose 110 mg/dl (74-100); Total Protein,Serum 6.1 g/dl (6.3-8.2)
[2024-03-19 07:11] LABS: Basophils % 0.8 % (0.1-2.0); Eosinophils # 0.3 K/mm3 (0.0-0.4); Eosinophils % 6.3 % (0.1-12.0); Hematocrit 31.9 % (42.0-52.0); Hemoglobin 10.6 g/dL (14.1-18.0); Lymphocytes # 1.2 K/mm3 (0.7-4.5); Lymphocytes % 24.2 % (10-50); Mean Corpuscular HGB Conc 33.2 g/dL (31.8-35.4); Mean Corpuscular Volume 87.2 fl (80-94); Mean Platelet Volume 9.9 fl (7.4-10.4); Monocytes # 0.5 K/mm3 (0.1-1.0); Monocytes % 10.5 % (1.7-9.3); Neutrophils % 57.6 % (37.0-80.0); Platelet Count 146 K/mm3 (142-424); Red Blood Count 3.66 M/mm3 (4.60-6.20); Red Cell Distribution Width 13.6 % (11.5-17.5); White Blood Count 5.1 K/mm3 (4.8-10.8)
[2024-03-19 07:50] VITALS: BP 179/83; PULSE 77; RESP 18; TEMP 36.5; O2SAT 98
[2024-03-19 07:50] LABS: Magnesium 1.7 mg/dl (1.6-2.3)
--- NOTE | 2024-03-19 08:33 | EXP.PHA.PN ---
Subjective *Date: 03/19/24 *Time: 08:33 Medical Exam Vital signs and Labs for Last 24 Hours: Vital Signs Temp Pulse Resp BP Pulse Ox O2 Del Method 03/19/24 07:50 97.7 F 77 18 179/83 H 98 Room Air 03/19/24 07:00 Room Air 03/19/24 05:00 Room Air 03/19/24 04:00 98.1 F 63 16 179/92 H 97 Room Air 03/19/24 03:00 Room Air 03/19/24 01:00 Room Air 03/19/24 00:00 98.1 F 61 16 130/64 96 Room Air 03/18/24 23:00 Room Air 03/18/24 21:00 Room Air 03/18/24 20:00 97 Room Air 03/18/24 20:00 98.0 F 62 16 182/86 H 97 Room Air 03/18/24 18:45 Room Air 03/18/24 17:00 Room Air 03/18/24 16:00 98.0 F 60 18 159/76 H 97 Room Air 03/18/24 15:00 Room Air 03/18/24 13:00 Room Air 03/18/24 12:00 98.6 F 62 18 161/75 H 97 Room Air 03/18/24 11:00 Room Air 03/18/24 09:13 Room Air 03/18/24 09:00 Room Air Intake and Output 03/18/24 03/19/24 03/19/24 23:59 07:59 15:59 Intake Total 240 / 1180 480 / 480 Output Total 675 / 2375 0 / 0 Balance -435 / -1195 480 / 480 Intake: Intake, Oral Amount 240 / 1180 480 / 480 Output: Output, Urine Amount 5 / 1975 0 / 0 Other: Number of Unmeasured Voids 1 1 Weight 85.321 kg Patient Weight 03/19/24 23:59 Weight 85.321 kg Laboratory Results - last 24 hr 03/16/24 13:15: Urine Color Yellow, Urine Appearance Cloudy, Urine pH 6.0, Ur Specific [place] 1.020, Urine Protein 3+ A, Urine Glucose (UA) Negative, Urine Ketones Negative, Urine Blood 2+ A, Urine Nitrate Negative, Urine Bilirubin Negative, Urine Urobilinogen 0.2, Ur Leukocyte Esterase 2+ A, Urine RBC Occasional, Urine WBC 20-50, Ur Squamous Epith Cells None, Urine Bacteria 2+ 03/18/24 09:17: POC Glucose 179 H 03/18/24 11:28: POC Glucose 198 H 03/18/24 16:56: POC Glucose 134 H 03/18/24 20:06: POC Glucose 184 H 03/19/24 05:50: POC Glucose 111 H 03/19/24 06:17: WBC 5.1, RBC 3.66 L, Hgb 10.6 L, Hct 31.9 L, MCV 87.2, MCH 29.0, MCHC 33.2, RDW 13.6, Plt Count 146, MPV 9.9, Neut % (Auto) 57.6, Lymph % (Auto) 24.2, [place] % (Auto) 10.5 H, Eos % (Auto) 6.3, Baso % (Auto) 0.8, Neut # (Auto) 3.0, Lymph # (Auto) 1.2, [place] # (Auto) 0.5, Eos # (Auto) 0.3, Baso # (Auto) 0.0, Sodium 138, Potassium 3.4 L, Chloride 97 L, Carbon Dioxide 40 H, Anion Gap 4.4 L, BUN 12, Creatinine 1.60 H, Estimated Creat Clear 47, Estimated GFR 42 L, Est GFR ( Amer) 51 L, Glucose 110 H, Calcium 7.5 L, Magnesium 1.7 D, Total Bilirubin 0.3, AST 24 D, ALT 8 L D, Alkaline Phosphatase 106, Total Protein 6.1 L, Albumin 2.8 L, Globulin 3.3 H, Albumin/Globulin Ratio 0.8 L I & O for Labs for Last 24 Hours: Intake & Output 03/16/24 03/17/24 03/18/24 03/19/24 23:59 23:59 23:59 23:59 Intake Total 299 / 639 1640 / 1740 1180 / 1180 480 / 480 Output Total 2400 / 2400 1100 / 1800 2375 / 2375 0 / 0 Balance -2101 / -1761 540 / -60 -1195 / -1195 480 / 480 Weight 85.417 kg 86.319 kg 87.99 kg 85.321 kg Microbiology Reports for the Last 24 Hours: Microbiology 03/16/24 14:58 Blood Blood Culture - Preliminary NO GROWTH AFTER 48 HOURS 03/16/24 14:28 Blood Blood Culture - Preliminary NO GROWTH AFTER 48 HOURS 03/16/24 13:15 Urine,Clean Catch Urine Culture - Preliminary Gram Negative Rods Gram Negative Rods#2 The patient's infection will respond to the chosen ABx?: Yes Is the patient receiving the right drug, dose, and route?: Yes Could a more targeted ABx be ordered?: No (AFEBRILE, WBC WNL, URINE CX POSITIVE X2 FOR GRAM - RODS. CONT CURRENT ABX)
[2024-03-19] MEDS: ENOXAPARIN 40MG/0.4ML SYRINGE 40 MG SUBCUT (09:02)
[2024-03-19] MEDS: CARBIDOPA/LEVODOPA 25/100MG TABLET 1 EACH PO ×2 (09:02→12:02)
[2024-03-19] MEDS: AMLODIPINE 5MG TABLET 5 MG PO (09:02)
[2024-03-19] MEDS: IRBESARTAN 150MG TAB 150 MG PO (09:03)
[2024-03-19] MEDS: PARoxetine 20MG TABLET 40 MG PO (09:03)
[2024-03-19] MEDS: PANTOPRAZOLE 40MG TABLET 40 MG PO (09:04)
[2024-03-19] MEDS: INSULIN GLARGINE 100 UNITS/ML 3ML FLEXPEN 35 UNIT SUBCUT (09:05)
[2024-03-19] MEDS: MAGNESIUM SULFATE IN WATER 2 GM/50 ML PIGGYBACK IV ×2 (09:13→10:11)
[2024-03-19] MEDS: POTASSIUM CHLORIDE 20MEQ TAB 40 MEQ PO ×2 (09:13→12:02)
[2024-03-19 09:28] LABS: POC Glucose,Bedside 222 (70-110)
[2024-03-19] MEDS: POLYETHYLENE GLYCOL 3350 17 GM PACKET PO (11:24)
[2024-03-19] MEDS: humaLOG 100 UNITS/ML 10ML VIAL (SSI) SUBCUT (11:28)
[2024-03-19 11:49] VITALS: BP 180/100; PULSE 70; RESP 20; TEMP 36.6; O2SAT 97
[2024-03-19] MEDS: HYDROCODONE/APAP 5/325 MG TABLET 1 TAB PO (12:01)
--- NOTE | 2024-03-19 12:31 | DIET.NUTRFU ---
Reviewed chart with provider, no BM since admit with plans to discharge today to [place]. Provider added BM regimen
--- NOTE | 2024-03-19 12:33 | EXP.DC.SUM ---
General Admission date:: 03/16/24 HPI HPI HPI: Mr. Crocker is a 78-year-old male with history significant for Parkinson's dementia, hypertension, hyperlipidemia, insulin-dependent diabetes, hypothyroidism, anxiety/depression who presented via EMS due to onset of nausea and vomiting and weakness. Patient reports chills and subjective fever. Denies cough or chest pain. States has been having increased difficulty urinating. Patient denies much p.o. intake over the past 24 hours. Threw up his meds this morning. Complaining of some mild lower abdominal pain. Workup in the ER, white count is normal. Imaging of abdomen however shows thickened bladder wall and concern for pyelonephritis. Urine grossly abnormal. Has had previous UTIs with mixed resistance. Patient was started on broad-spectrum antibiotics for pyelonephritis. Catheter placed for obstructive process. Medicine consulted for admission and further management. On arrival to the floor, patient states he feels little bit better after placement of catheter. Has had 1500 cc of blood-tinged urine output. Remains afebrile and hemodynamically stable. Alert and oriented to self and place. Hospital Course Hospital Course Hospital Course: Tomas Crocker is a 78-year-old male with history of Parkinson's who presented to the ER with nausea, vomiting, weakness. Workup in the ER concerning for pyelonephritis. Discussed case with ER physician, request admission for IV antibiotics and further management of pyelonephritis due to history of MDR UTIs. #Pyelonephritis, left #Hx of Multidrug resistant bacterial infection (achromobacter, E. coli) #Urinary retention ? Urine grossly abnormal, urine culture growing Klebsiella oxytocin, Proteus mirabilis sensitive to third-generation cephalosporin. ? Patient treated with empiric meropenem given history of MDR UTI, will transition to cefdinir on discharge. ? Allen catheter removed, with appropriate urine output. Started tamsulosin 0.4 mg. ? Discharged with cefdinir for 4 more days. #Parkinson's: Complicates all aspects of his care. ? Continue home carbidopa/levodopa 1 tab 4 times a day ? PT/OT evaluated, would benefit from placement for therapy, case management assisting with placement. Type 2 diabetes: Continue Lantus at decreased dose of 35 units every morning. Sliding scale insulin as needed ACHS. Fingerstick glucose ACHS. - A1c controlled at 7.1 Hypothyroid: TSH normal however free T4 low at 2. Started levothyroxine 25 mcg daily. Follow-up TFTs in 6 weeks. Continue losartan 100 mg, started amlodipine 5 mg for hypertension. Continue to uptitrate based on response. Continue allopurinol 300 mg daily for gout Continue Lipitor 40 mg nightly for hyperlipidemia Continue gabapentin 400 mg twice daily as needed for neuropathy Continue Paxil 40 mg daily, Seroquel 100 mg nightly, trazodone 50 mg nightly for sleep and mood Continue tamsulosin 0.4 g nightly for BPH Exam Data for Last 24 hours Vital signs and Labs for Last 24 Hours: Temp Pulse Resp BP Pulse Ox O2 Del Method 97.9 F 70 20 180/100 H 97 Room Air 03/19/24 11:49 03/19/24 11:49 03/19/24 11:49 03/19/24 11:49 03/19/24 11:49 03/19/24 11:49 Laboratory Results - last 24 hr 03/18/24 16:56: POC Glucose 134 H 03/18/24 20:06: POC Glucose 184 H 03/19/24 05:50: POC Glucose 111 H 03/19/24 06:17: WBC 5.1, RBC 3.66 L, Hgb 10.6 L, Hct 31.9 L, MCV 87.2, MCH 29.0, MCHC 33.2, RDW 13.6, Plt Count 146, MPV 9.9, Neut % (Auto) 57.6, Lymph % (Auto) 24.2, Sandoval % (Auto) 10.5 H, Eos % (Auto) 6.3, Baso % (Auto) 0.8, Neut # (Auto) 3.0, Lymph # (Auto) 1.2, Sandoval # (Auto) 0.5, Eos # (Auto) 0.3, Baso # (Auto) 0.0, Sodium 138, Potassium 3.4 L, Chloride 97 L, Carbon Dioxide 40 H, Anion Gap 4.4 L, BUN 12, Creatinine 1.60 H, Estimated Creat Clear 47, Estimated GFR 42 L, Est GFR ( Amer) 51 L, Glucose 110 H, Calcium 7.5 L, Magnesium 1.7 D, Total Bilirubin 0.3, AST 24 D, ALT 8 L D, Alkaline Phosphatase 106, Total Protein 6.1 L, Albumin 2.8 L, Globulin 3.3 H, Albumin/Globulin Ratio 0.8 L 03/19/24 09:05: POC Glucose 222 H I & O for Last 24 hours: Intake & Output 03/16/24 03/17/24 03/18/24 03/19/24 23:59 23:59 23:59 23:59 Intake Total 299 / 639 1640 / 1740 1180 / 1180 580 / 580 Output Total 2400 / 2400 1100 / 1800 2375 / 2375 0 / 0 Balance -2101 / -1761 540 / -60 -1195 / -1195 580 / 580 Weight 85.417 kg 86.319 kg 87.99 kg 85.321 kg Microbiology Reports for the Last 24 Hours: Microbiology 03/16/24 13:15 Urine,Clean Catch Urine Culture - Final Klebsiella oxytoca Proteus mirabilis 03/16/24 14:58 Blood Blood Culture - Preliminary NO GROWTH AFTER 48 HOURS 03/16/24 14:28 Blood Blood Culture - Preliminary NO GROWTH AFTER 48 HOURS Constitutional Constitutional: no acute distress, average body habitus, chronically ill appearing and cooperative *Routine HEENT Exam Head: Present normocephalic and atraumatic Eye: Present EOMI and PERRL ENT: Present mucous membranes moist *Routine Neck Exam Neck: Present supple; Absent lymphadenopathy *Routine Respiratory Exam Respiratory: Present CTA bilaterally; Absent rhonchi, wheezes or crackles *Routine Cardiovascular Exam Cardiovascular: Present RRR *Routine Abdominal Exam Abdominal: Present soft, normoactive bowel sounds and tenderness (Suprapubic) *Routine Rectal Exam Patient deferred: visual exam *Routine Exam Patient deferred: penile exam *Routine Extremities Exam Extremities: Absent cyanosis, clubbing or edema *Routine Skin Exam Skin: Present warm; Absent rash *Routine Neurological Exam Neurological: Present alert, oriented X3 and moving all extremities; Absent altered mental status Comments: Rigidity in limbs. Shuffling gait when ambulates. Results Data Completed and Pending Labs on day of discharge: Labs from last 24 hours 03/19/24 03/19/24 03/19/24 09:05 06:17 05:50 WBC 5.1 RBC 3.66 L Hgb 10.6 L Hct 31.9 L MCV 87.2 MCH 29.0 MCHC 33.2 RDW 13.6 Plt Count 146 MPV 9.9 Neut % (Auto) 57.6 Lymph % (Auto) 24.2 Sandoval % (Auto) 10.5 H Eos % (Auto) 6.3 Baso % (Auto) 0.8 Neut # (Auto) 3.0 Lymph # (Auto) 1.2 Sandoval # (Auto) 0.5 Eos # (Auto) 0.3 Baso # (Auto) 0.0 Sodium 138 Potassium 3.4 L Chloride 97 L Carbon Dioxide 40 H Anion Gap 4.4 L BUN 12 Creatinine 1.60 H Estimated Creat Clear 47 Estimated GFR 42 L Est GFR ( Amer) 51 L Glucose 110 H POC Glucose 222 H 111 H Calcium 7.5 L Magnesium 1.7 D Total Bilirubin 0.3 AST 24 D ALT 8 L D Alkaline Phosphatase 106 Total Protein 6.1 L Albumin 2.8 L Globulin 3.3 H Albumin/Globulin Ratio 0.8 L 03/18/24 03/18/24 20:06 16:56 WBC RBC Hgb Hct MCV MCH MCHC RDW Plt Count MPV Neut % (Auto) Lymph % (Auto) Sandoval % (Auto) Eos % (Auto) Baso % (Auto) Neut # (Auto) Lymph # (Auto) Sandoval # (Auto) Eos # (Auto) Baso # (Auto) Sodium Potassium Chloride Carbon Dioxide Anion Gap BUN Creatinine Estimated Creat Clear Estimated GFR Est GFR ( Amer) Glucose POC Glucose 184 H 134 H Calcium Magnesium Total Bilirubin AST ALT Alkaline Phosphatase Total Protein Albumin Globulin Albumin/Globulin Ratio Preliminary micro results at discharge 03/16/24 14:58 Blood Culture - Preliminary Blood NO GROWTH AFTER 48 HOURS 03/16/24 14:28 Blood Culture - Preliminary Blood NO GROWTH AFTER 48 HOURS DS: Diagnosis Discharge Diagnosis (1) Pyelonephritis: Status: Acute Code(s): N12 - Tubulo-interstitial nephritis, not specified as acute or chronic (2) Bladder outlet obstruction: Status: Acute Code(s): N32.0 - Bladder-neck obstruction (3) Hypokalemia: Status: Acute Code(s): E87.6 - Hypokalemia (4) Hypocalcemia: Status: Acute Code(s): E83.51 - Hypocalcemia (5) Hypomagnesemia: Status: Acute Code(s): E83.42 - Hypomagnesemia (6) HTN (hypertension): Status: Acute Code(s): I10 - Essential (primary) hypertension Qualifiers: Hypertension type: unspecified Qualified Code(s): I10 - Essential (primary) hypertension (7) Diabetes mellitus: Status: Chronic Code(s): E11.9 - Type 2 diabetes mellitus without complications Qualifiers: Diabetes mellitus type: type 2 Diabetes mellitus 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 Diabetes mellitus complication status: with other specified complication Qualified Code(s): E11.69 - Type 2 diabetes mellitus with other specified complication; 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 (8) HLD (hyperlipidemia): Status: Acute Code(s): E78.5 - Hyperlipidemia, unspecified Qualifiers: Hyperlipidemia type: unspecified Qualified Code(s): E78.5 - Hyperlipidemia, unspecified (9) Parkinson disease: Status: Chronic Code(s): G20.A1 - Parkinson's disease without dyskinesia, without mention of fluctuations Qualifiers: Dyskinesia presence: with dyskinesia Fluctuating manifestations: without fluctuating manifestations Qualified Code(s): G20.B1 - Parkinson's disease with dyskinesia, without mention of fluctuations Meds Home Medications and Allergies Home Medications ?Medication ?Instructions ?Recorded ?Confirmed ?Type atorvastatin 40 mg tablet 40 mg PO HS 04/22/23 03/17/24 History paroxetine HCl 40 mg tablet 40 mg PO DAILY 04/22/23 03/17/24 History aspirin 81 mg chewable tablet 81 mg PO DAILY 05/08/23 03/16/24 History hydrocodone 5 mg-acetaminophen 325 1 tab PO BIDP PRN Pain, Moderate 07/04/23 03/16/24 Rx mg tablet #60 tabs allopurinol 300 mg tablet 300 mg PO DAILY 09/06/23 03/16/24 History carbidopa 25 mg-levodopa 100 mg 1 tab PO QID 09/06/23 03/16/24 History tablet losartan 100 mg tablet 100 mg PO DAILY 09/06/23 03/16/24 History omeprazole 20 mg capsule,delayed 20 mg PO BID 09/06/23 03/16/24 History release quetiapine 100 mg tablet 100 mg PO HS 09/06/23 03/16/24 History trazodone 50 mg tablet 50 mg PO HS 09/06/23 03/16/24 History gabapentin 400 mg capsule 800 mg PO HS 03/16/24 03/16/24 History oxybutynin chloride 5 mg 5 mg PO DAILY 03/17/24 03/17/24 History tablet,extended release 24 hr amlodipine 5 mg tablet 5 mg PO DAILY 30 days #30 tabs 03/19/24 Rx cefdinir 300 mg capsule 300 mg PO BID 4 days #8 caps 03/19/24 Rx insulin glargine 100 unit/mL (3 45 unit (0.45 mL) SQ DAILY 30 days 03/19/24 03/17/24 Rx mL) subcutaneous pen (Lantus #0 mL Solostar U-100 Insulin) levothyroxine 25 mcg tablet 25 mcg PO DAILYDM 30 days #30 tabs 03/19/24 Rx (Synthroid) tamsulosin 0.4 mg capsule 0.4 mg PO HS 30 days #30 caps 03/19/24 Rx New Prescriptions to Start Prescriptions: amlodipine Michelle,Rick cefdinir Michelle,Rick levothyroxine [Synthroid] Michelle,Rick tamsulosin Michelle,Rick Allergies Allergy/AdvReac Type Severity Reaction Status Date / Time No Known Allergies Allergy Verified 03/16/24 16:51 Discharge Plan Disposition Patient Disposition: er SNF Condition: Fair Discharge Order Discharge Orders: Discharge Order (Routine); Ordered 03/19/24 Ordered By: Rick Martinez Follow up Plan Prescriptions/Medication Reconciliation: New amlodipine 5 mg Tablet 5 mg PO DAILY 30 Days Qty: 30 0RF levothyroxine [Synthroid] 25 mcg Tablet 25 mcg PO DAILYDM 30 Days Qty: 30 0RF tamsulosin 0.4 mg Capsule 0.4 mg PO HS 30 Days Qty: 30 0RF cefdinir 300 mg capsule 300 mg PO BID 4 Days Qty: 8 0RF Continued hydrocodone-acetaminophen 5-325 mg tablet 1 tab PO BIDP PRN (Reason: Pain, Moderate) Qty: 60 0RF atorvastatin 40 mg tablet 40 mg PO HS paroxetine HCl 40 mg tablet 40 mg PO DAILY aspirin 81 mg tablet,chewable 81 mg PO DAILY trazodone 50 mg tablet 50 mg PO HS quetiapine 100 mg tablet 100 mg PO HS omeprazole 20 mg capsule,delayed release(DR/EC) 20 mg PO BID allopurinol 300 mg tablet 300 mg PO DAILY carbidopa-levodopa 25-100 mg tablet 1 tab PO QID losartan 100 mg tablet 100 mg PO DAILY gabapentin 400 mg capsule 800 mg PO HS oxybutynin chloride 5 mg tablet extended release 24hr 5 mg PO DAILY Changed insulin glargine [Lantus Solostar U-100 Insulin] 100 unit/mL (3 mL) insulin pen 45 unit SQ DAILY 30 Days Qty: 0 0RF Discontinued insulin aspart U-100 [Novolog FlexPen U-100 Insulin] 100 unit/mL (3 mL) insulin pen 20 unit SQ QPMWITHMEAL Rx Instructions: 20 unit subcutaneously with dinner if blood glucose greater than 300 Problem Reconciliation Problems Reviewed?: Yes Patient Discharge Instructions Patient Instructions: DI for Kidney Infection, DI for Urinary Retention in Men, DI for Hypomagnesemia, Catheter-Associated Urinary Tract Infection Print Language: [place] Providers Primary Care Provider: Chantel Ruggiero Admit Provider: Frederick Chinchilla Attending Provider: Frederick Chinchilla
--- NOTE | 2024-03-19 13:57 | PC.NURSE ---
Report given to Rita at [facility]. EMS notified.
[2024-03-19 15:48] VITALS: BP 180/70; PULSE 57; RESP 17; TEMP 36.8; O2SAT 98
== END 2024-03-19 16:41 | DRG 690 ==
LOC: ER 14:18 → ICU 14:57 → 2ND 03-17 02:06 → ICU 03-17 08:01
PROVIDERS: Physician Assistant; Student in an Organized Health Care Education/Training Program; Admitting Provider Internal Medicine Adolescent Medicine; Emergency Provider Emergency Medicine; PCP Physician Assistant; Visit Provider Internal Medicine Adolescent Medicine
DX: N10 Acute pyelonephritis (principal); Z16.24 Resistance to multiple antibiotics; N39.0 Urinary tract infection, site not specified; N18.4 Chronic kidney disease, stage 4 (severe); N32.0 Bladder-neck obstruction; E87.6 Hypokalemia; E83.51 Hypocalcemia; E83.42 Hypomagnesemia; E11.69 Type 2 diabetes mellitus with other specified complication; E78.5 Hyperlipidemia, unspecified; E11.22 Type 2 diabetes mellitus with diabetic chronic kidney disease; E11.40 Type 2 diabetes mellitus with diabetic neuropathy, unspecified; E03.9 Hypothyroidism, unspecified; M10.9 Gout, unspecified; N40.0 Benign prostatic hyperplasia without lower urinary tract symptoms; B96.4 Proteus (mirabilis) (morganii) as the cause of diseases classified elsewhere; B96.89 Other specified bacterial agents as the cause of diseases classified elsewhere; G20.A1 Parkinson's disease without dyskinesia, without mention of fluctuations; F02.80 Dementia in other diseases classified elsewhere, unspecified severity, without behavioral disturbance, psychotic disturbance, mood disturbance, and anxiety; Z79.899 Other long term (current) drug therapy; Z79.4 Long term (current) use of insulin; Z90.49 Acquired absence of other specified parts of digestive tract; Z87.891 Personal history of nicotine dependence; Z74.1 Need for assistance with personal care
CPT/HCPCS: 36415; 51702; 74177; 80053; 81001; 82962; 83036; 83735; 84145; 84436; 84443; 84479; 85025; 86803; 87040; 87086; 87088; 87186; 87389; 87636; 97110; 97116; 97162; 97166; 97530; 99291; J0696; J1650; J2185; J2405; J3475; J7120; Q9967

== ENCOUNTER 2024-03-28 10:30 | Outpatient (CLI) | payer MEDICARE, OTHER, SELFPAY ==
[2024-03-28 10:40] LABS: Microscopic, Urine URINE MICROSCOPIC (MICROSCOPIC)
[2024-03-28 10:43] LABS: Appearance,Urine CLEAR (Clear); Bilirubin,Urine Negative (Negative); Blood, Urine 1+ (Negative); Color,Urine YELLOW (Yellow); Glucose,Urine (UA) Negative (Negative); Ketones,Urine Negative (Negative); Leukocyte Esterase,Urine 3+ (Negative); Nitrate,Urine Negative (Negative); PH,Urine 6.5 (5.0-8.5); Protein,Urine 2+ (Negative); Urobilinogen,Urine 0.2 EU/dl (0.2)
[2024-03-28 10:46] LABS: Basophils # 0.1 K/mm3 (0-0.2); Basophils % 1.2 % (0.1-2.0); Eosinophils # 0.6 K/mm3 (0.0-0.4); Eosinophils % 5.6 % (0.1-12.0); Hematocrit 34.4 % (42.0-52.0); Hemoglobin 10.9 g/dL (14.1-18.0); Lymphocytes # 2.3 K/mm3 (0.7-4.5); Mean Corpuscular HGB Conc 31.7 g/dL (31.8-35.4); Mean Corpuscular Hemoglobin 28.1 pg (27.0-31.2); Mean Corpuscular Volume 88.7 fl (80-94); Mean Platelet Volume 10.8 fl (7.4-10.4); Monocytes # 0.7 K/mm3 (0.1-1.0); Neutrophils # 6.7 K/mm3 (1.8-7.8); Neutrophils % 63.9 % (37.0-80.0); Platelet Count 173 K/mm3 (142-424); Red Blood Count 3.88 M/mm3 (4.60-6.20); Red Cell Distribution Width 13.7 % (11.5-17.5); White Blood Count 10.4 K/mm3 (4.8-10.8)
[2024-03-28 11:24] LABS: Chloride 101 mmol/L (98-107); Potassium 4.9 mmoL/L (3.5-5.1); Sodium 140 mmol/L (136-145)
[2024-03-28 11:27] LABS: Anion Gap 7.9 mEq/L (5-15); Blood Urea Nitrogen 19 mg/dl (9-20); Calcium 8.3 mg/dl (8.4-10.2); Carbon Dioxide 36 mmol/L (22.0-30.0); Estimated Glomerular Filt Rate 24 ml/min (>60); GFR (African American) 29 ML/MIN (>60); Glucose 85 mg/dl (74-100)
[2024-03-28 11:32] LABS: Bacteria,Urine 1+ /lpf; RBC,Urine Occasional #/hpf (0-3); Squamous Epithelial Cell,Urine Occasional #/hpf (0-5); WBC,Urine TNTC #/hpf (0-3)
== END 2024-03-28 23:59 | disposition home or self-care (01) ==
LOC: LAB 03-31 08:39 → LAB.DROPOF 04-01 14:27
PROVIDERS: PCP Family Medicine Hospice and Palliative Medicine; Visit Provider Family Medicine Hospice and Palliative Medicine
DX: N10 Acute pyelonephritis (principal); R33.9 Retention of urine, unspecified; N32.0 Bladder-neck obstruction; E11.9 Type 2 diabetes mellitus without complications; I10 Essential (primary) hypertension
CPT/HCPCS: 80048; 81001; 85025; 87086